=== PATIENT | female | born 1950 | race Caucasian/White ===

== ENCOUNTER 2017-02-26 11:41 | Inpatient (IN) | payer OTHER ==
[~2017-02-26] VITALS: Ht 175.3 cm; Wt 97.1 kg
[~2017-02-26 11:41] MED LIST: ACET300T PO; ALBUAER2 INH; ASPI81TA28 PO; BENZ100C84 PO; CALC600T57 PO; CDN15 PO; CYCL10TA6 PO; DESO0.0562 TOP; DLTCD/240 PO; IPRASOL4 INH; LDXS20 TOP; LEVO1TAB33 PO; LORA-741 PO; LVQ500 PO; MAGN400T6 PO; MULT-506 PO; NF34 TOP; OXGN; PANT40TA2 PO; POTA10TA32 PO; SPRIN/30 INH; SYMIN160 INH; TRIA37.5 PO; WARF-246 PO; WSTO TOP; ZLF/100 PO; ZOLP5TAB PO
[2017-02-26] MEDS ORDERED: CEFEPIME IV 2,000 MG in DEXTROSE 5% 100ML 100 ML IV STA (12:33)
[2017-02-26] MEDS ORDERED: ALBUT/IPRATROP 3MG/0.5MG NEB 3 ML VIAL INH STA (12:33)
[2017-02-26] MEDS ORDERED: SODIUM CHLORIDE 0.9% 1000ML 1,000 ML IV ONE (12:33)
[2017-02-26] MEDS ORDERED: METHYLPREDNISOLONE 125 MG VIAL IV STA (12:38)
--- NOTE | 2017-02-26 12:41 | EMERGENCY ROOM VISIT NOTE ---
History Report prepared by Veronika: Ben Matthew Under the Supervision of: Dr. Rishi Zendejas M.D. First contact with patient: 12:27 Chief Complaint: REFERRED BY DOCTOR Stated Complaint: SICK X 1 WEEK History of Present Illness The patient is a 66 year old female who presents to the Emergency Room with complaints of persistent shortness of breath that began 8 days ago. She has a past history of COPD and states that her respiratory symptoms feel similar to her symptoms associated with her past episodes of COPD. At the patient's baseline, she is on 3L of oxygen at all times. Her symptoms worsen with movement or exertion. Along with her shortness of breath, she is also having chest heaviness and a non-productive cough. She has a nebulizer at home and has been using it intermittently. She denies any nausea, vomiting, abdominal pain, diarrhea, or abnormal urinary symptoms. She notes that she has had intermittent fevers. Six days ago, she went to [facility] and was placed onto Prednisone and Levaquin. Her symptoms persisted, so she went back to the clinic two days ago and was given Rocephin IM and Solu-Medrol IM. Yesterday, she received a chest x-ray that was negative. However, her symptoms have persisted into today, so she was referred to the ER for possible hospitalization. She has three days of Prednisone and Levaquin left. She has been trying her best to stay hydrated. She denies any history of previous heart attacks. She is on Eliquis for her atrial fibrillation. Source of History: patient Onset: 8 days ago Position: other (Respiratory System) Symptom Intensity: moderate Quality: other (Shortness of breath) Timing: other (Persistent) Modifying Factors (Worsening): exertion, movement Associated Symptoms: + fevers (Intermittent), + cough (non-productive), No chest pain, No nausea, No vomiting, No abdominal pain, No diarrhea, No urinary symptoms Note: She is experiencing chest heaviness. Review of Systems See HPI for pertinent positives & negatives. A total of 10 systems reviewed and were otherwise negative. Past Medical & Surgical Medical Problems: (1) Atrial fibrillation (2) Bronchitis (3) Chronic respiratory failure (4) COPD (chronic obstructive pulmonary disease) (5) Depression (6) Hx multifocal atrial tachycardia (7) Hx spontaneous pneumothorax (8) Paroxysmal atrial fibrillation (9) PFO (patent foramen ovale) (10) Pneumonia (11) Pneumothorax (12) Psoriasis (13) Raynauds syndrome Surgical Problems: (1) H/O foot surgery (2) History of hysterectomy (3) S/P T&A (status post tonsillectomy and adenoidectomy) Family History FH: emphysema FATHER MOTHER FH: heart disease MOTHER GRANDFATHER GRANDMOTHER Hypertension Kidney disease Kidney stones Social History Smoking Status: Former Smoker Alcohol Use: occasionally Drug Use: none Housing Status: lives alone Occupation Status: unemployed Current/Historical Medications Scheduled Apixaban (Eliquis), 5 MG PO BID Calcium/Vitamin D (Os-Carlos 500 Plus D), 1 TAB PO BID Digoxin (Digoxin), 0.125 MG PO DAILY Diltiazem Hcl Ext Rel (Tiazac), 240 MG PO DAILY Fluticasone Prop/Salmeterol (Advair Diskus 250/50 60 Dose), 1 PUFF INH BID Home O2 Therapy (Oxygen), 3 LITERS NA CONTINOUS Lorazepam (Ativan), 0.5 MG PO BID Magnesium Oxide (Mag-Ox), 400 MG PO BID Multivitamin (Multivitamin), 1 TAB PO DAILY Pantoprazole (Pantoprazole Sodium), 40 MG PO DAILY Potassium Chloride (Potassium Chloride Er), 30 MEQ PO DAILY Potassium Chloride (Potassium Chloride Er), 20 MEQ PO HS Sertraline HCl (Sertraline HCl), 100 MG PO DAILY Tiotropium [place] (Spiriva Handihaler), 1 CAP INH DAILY Triamterene/Hctz (Maxzide 75MG/50MG), 0.5 TAB PO DAILY Scheduled PRN Albuterol Hfa (Ventolin Hfa), Unknown Dose INH Q6H PRN for SOB/Wheezing Benzonatate (Tessalon Perles), 100 MG PO DAILY PRN for Cough Ipratropium-Albuterol (Duoneb), 1 TREATMENT INH Q4H PRN for Shortness of Breath Allergies Coded Allergies: Penicillins (Verified Allergy, Severe, SWELLING OF TONGUE AND THROAT, ) Physical Exam Vital Signs Date Time Temp Pulse Resp B/P (MAP) Pulse Ox O2 Delivery O2 Flow Rate FiO2 02/26/17 15:00 63 20 143/73 98 Nasal Cannula 3.0 02/26/17 13:42 65 20 143/70 99 Nasal Cannula 3.0 02/26/17 13:00 59 20 149/74 100 Nasal Cannula 3.0 02/26/17 12:40 99 Nasal Cannula 3.0 02/26/17 12:27 58 02/26/17 11:49 37.1 64 18 136/79 93 Nasal Cannula 3.0 Physical Exam GENERAL: Patient is in no acute distress. HEENT: No acute trauma, normocephalic atraumatic, mucous membranes dry, no nasal congestion, no scleral icterus. NECK: No stridor, no adenopathy, no meningismus, trachea is midline. LUNGS: Markedly diminished breath sounds. Breath sounds are equal. No wheezing or rhonchi. HEART: Without murmurs gallops or rubs, regular rate and rhythm. ABDOMEN: Soft, nontender, bowel sounds positive, no hernias, no peritonitis. EXTREMITIES: No cyanosis or edema, full range of motion of all the joints without pain or difficulty, no signs for acute trauma. NEUROLOGIC: Oriented x 3, no acute motor or sensory deficits, no focal weakness. SKIN: No rash, no jaundice, no diaphoresis. Medical Decision & Procedures ER Provider Diagnostic Interpretation: Radiology results as stated below per my review and radiologist interpretation: (CHEST) THORAX WITHOUT CLINICAL HISTORY: 66 years-old Female presenting with possible pneumonia, sick for over 1 week, neg chest film. TECHNIQUE: Multidetector CT imaging of the chest was performed without the use of intravenous contrast. IV contrast: None. A dose lowering technique was used consistent with the principles of ALARA (as low as reasonably achievable). COMPARISON: 04/15/2014. CT DOSE (mGy.cm): The estimated cumulative dose is 319.57 mGy.cm. FINDINGS: Grader Tender topogram: Unremarkable. On soft tissue windows, normal thyroid and thoracic inlet. No axillary, supraclavicular, or mediastinal lymphadenopathy. Evaluation of the katt limited without intravenous contrast. Atherosclerosis of the aorta. Normal heart size. No pericardial or pleural effusion. Borderline hepatic steatosis. On lung windows, solid 6 mm pulmonary nodule in the right middle lobe (series 4 image 168) disease, previously 4 mm. Additional solid 7 mm pulmonary nodule in the right middle lobe (series 4 image 175), previously 5 mm. Solid 5 mm pulmonary nodule in the right lower lobe (series 4 image 183), previously 4 mm. Peripheral punctate nodule in the right lower lobe (series 4 image 203), unchanged. Minimal dependent changes at the lung bases likely atelectasis or scarring. Mild apical predominant emphysema. Reticulation at the lung apices likely scarring, unchanged from prior. Groundglass nodule in the lingula measures 13 mm (series 4 image 145), previously ill-defined but measuring proximally 6 mm. Additional more subtle groundglass nodule in the periphery of the lingula measuring 5 mm (series 4 image 156), not seen previously. Airways patent. On bone windows, degenerative changes of the spine. Exaggerated thoracic kyphosis without a focal compression deformity. Mild osteopenia. IMPRESSION: 1. Interval increase in size of several solid and subsolid pulmonary nodules bilaterally, the largest on the right a solid nodule measuring 7 mm and the largest on the left a subsolid nodule measuring 13 mm follow-up per Dany Society 2017 recommendations below. 2. No convincing evidence of an infectious etiology. Please refer to below summary of Fleischner Society 2017 recommendations for follow-up of incidental CT nodules (H Frederick et al. Guidelines for management of incidental pulmonary nodules detected on CT images: From the Fleischner Society 2017. Radiology 2017; 284: 228-243.) SOLID NODULES Single nodule; size < 6 mm * Low risk patients: No routine follow-up * High risk patients: Optional CT at 12 months Single nodule; size 6-8 mm * Low risk patients: CT at 6-12 months, then consider CT at 18-24 months * High risk patients: CT at 6-12 months, then at 18-24 months Single nodule; size > 8 mm * Either low or high risk patients: Considered CT at 3 months, PET/CT, or tissue sampling Multiple nodules; size < 6 mm * Low risk patients: No routine follow up * High risk patients: Optional CT at 12 months Multiple nodules; size 6-8 mm * Low risk patients: CT at 3-6 months, then consider CT at 18-24 months * High risk patients: CT at 3-6 months, then at 18-24 months Multiple nodules; size > 8 mm * Low risk patients: CT at 3-6 months, then consider at 18-24 months * High risk patients: CT at 3-6 months, then at 18-24 months Note: These guidelines apply to incidental nodules. These guidelines do not apply to patients younger than 35 years, immunocompromised patients, or patients with cancer. * Low risk patients: Minimal or absent history of smoking and/or other known risk factors * High risk patients: History of smoking, exposure to other carcinogens, emphysema, fibrosis, upper lobe location, family history of lung cancer, etc. * If a nodule up to 8 mm is partly solid or is ground glass, further follow-up is required after 24 months to exclude possible slow growing adenocarcinoma. SUBSOLID NODULES Single ground-glass nodule * Nodule size < 6 mm: No routine follow-up * Nodule size > or = 6 mm: CT at 6-12 months to confirm persistence, then CT every 2 years until 5 years Single part-solid nodule * Nodule size < 6 mm: No routine follow-up * Nodules size > or = 6 mm: CT at 3-6 months to confirm persistence. If unchanged and solid component remains < 6 mm, annual CT should be performed for 5 years Multiple nodules * Nodule size < 6 mm: CT at 3-6 months. If stable, consider CT at 2 and 4 years. * Nodules size > or = 6 mm: CT at 3-6 months. Subsequent management based on the most suspicious nodule(s) Electronically signed by: Denzel Weller M.D. 02/26/2017 2:13 PM Dictated Date/Time: 02/26/2017 2:01 PM Laboratory Results 02/26/17 12:15 Red Blood Count 5.12, Mean Corpuscular Volume 89.5, Mean Corpuscular Hemoglobin 27.7, Mean Corpuscular Hemoglobin Concent 31.0, Mean Platelet Volume 10.8, Neutrophils (%) (Auto) 87.8, Lymphocytes (%) (Auto) 4.3, Monocytes (%) (Auto) 7.5, Eosinophils (%) (Auto) 0.1, Basophils (%) (Auto) 0.0, Neutrophils # (Auto) 8.81, Lymphocytes # (Auto) 0.43, Monocytes # (Auto) 0.75, Eosinophils # (Auto) 0.01, Basophils # (Auto) 0.00 02/26/17 12:15 Test 02/26/17 12:15 02/26/17 13:18 02/26/17 13:30 02/26/17 14:58 White Blood Count 10.03 K/uL (4.8-10.8) Red Blood Count 5.12 M/uL (4.2-5.4) Hemoglobin 14.2 g/dL (12.0-16.0) Hematocrit 45.8 % (37-47) Mean Corpuscular Volume 89.5 fL (80-100) Mean Corpuscular Hemoglobin 27.7 pg (25-34) Mean Corpuscular Hemoglobin Concent 31.0 g/dl (32-36) Platelet Count 218 K/uL (130-400) Mean Platelet Volume 10.8 fL (7.4-10.4) Neutrophils (%) (Auto) 87.8 % Lymphocytes (%) (Auto) 4.3 % Monocytes (%) (Auto) 7.5 % Eosinophils (%) (Auto) 0.1 % Basophils (%) (Auto) 0.0 % Neutrophils # (Auto) 8.81 K/uL (1.4-6.5) Lymphocytes # (Auto) 0.43 K/uL (1.2-3.4) Monocytes # (Auto) 0.75 K/uL (0.11-0.59) Eosinophils # (Auto) 0.01 K/uL (0-0.5) Basophils # (Auto) 0.00 K/uL (0-0.2) RDW Standard Deviation 49.2 fL (36.4-46.3) RDW Coefficient of Variation 15.3 % (11.5-14.5) Immature Granulocyte % (Auto) 0.3 % Immature Granulocyte # (Auto) 0.03 K/uL (0.00-0.02) Prothrombin Time 12.0 SECONDS (9.0-12.0) Prothromb Time International Ratio 1.1 (0.9-1.1) Activated Partial Thromboplast Time 26.9 SECONDS (21.0-31.0) Partial Thromboplastin Ratio 1.0 Anion Gap 5.0 mmol/L (3-11) Est Creatinine Clear Calc Drug Dose 61.5 ml/min Estimated GFR () 58.9 Estimated GFR (Non- 50.8 BUN/Creatinine Ratio 17.9 (10-20) Calcium Level 8.9 mg/dl (8.5-10.1) Magnesium Level 2.2 mg/dl (1.8-2.4) Total Bilirubin 0.4 mg/dl (0.2-1) Aspartate Amino Transf (AST/SGOT) 9 U/L (15-37) Alanine Aminotransferase (ALT/SGPT) 19 U/L (12-78) Alkaline Phosphatase 119 U/L (45-117) Total Protein 7.3 gm/dl (6.4-8.2) Albumin 4.0 gm/dl (3.4-5.0) Globulin 3.3 gm/dl (2.5-4.0) Albumin/Globulin Ratio 1.2 (0.9-2) Troponin I < 0.015 ng/ml (0-0.045) Bedside Lactic Acid Venous 1.16 mmol/L (0.90-1.70) Influenza Type A (RT-PCR) Neg for Influ A (NEG) Influenza Type B (RT-PCR) Neg for Influ B (NEG) Test 02/26/17 15:35 02/26/17 15:50 Urine Color YELLOW Urine Appearance CLEAR (CLEAR) Urine pH 7.0 (4.5-7.5) Urine Specific Valentine 1.019 (1.000-1.030) Urine Protein NEG (NEG) Urine Glucose (UA) NEG (NEG) Urine Ketones NEG (NEG) Urine Occult Blood NEG (NEG) Urine Nitrite NEG (NEG) Urine Bilirubin NEG (NEG) Urine Urobilinogen NEG (NEG) Urine Leukocyte Esterase NEG (NEG) Urine WBC (Auto) 0 /hpf (0-5) Urine RBC (Auto) 0-4 /hpf (0-4) Urine Hyaline Casts (Auto) 0 /lpf (0-5) Urine Epithelial Cells (Auto) 10-20 /lpf (0-5) Urine Bacteria (Auto) NEG (NEG) Laboratory results reviewed by me. Medications Administered Medications (Trade) Dose Ordered Sig/Angela Route Start Time Stop Time Status Last Admin Dose Admin Sodium Chloride 1,000 ml @ 999 mls/hr Q1H1M ONCE IV 02/26/17 12:33 02/26/17 13:33 DC 02/26/17 12:48 999 MLS/HR Albuterol/ Ipratropium (Duoneb) 3 ml NOW STAT INH 02/26/17 12:33 02/26/17 12:37 DC 02/26/17 12:48 3 ML Methylprednisolone Sodium Succinate (Solu-Medrol IV) 80 mg NOW STAT IV 02/26/17 12:38 02/26/17 12:39 DC 02/26/17 12:48 80 MG Aztreonam 2000 mg/ Dextrose 110 ml @ 110 mls/hr TODAY@1300 IV 02/26/17 13:00 02/26/17 16:00 02/26/17 14:38 110 MLS/HR ECG Indication: SOB/dyspnea Rate (beats per minute): 59 Rhythm: sinus bradycardia Findings: no acute ischemic change, no ectopy ED Course 1227: The patient was evaluated in room B12B. A complete history and physical exam was performed. 1233: Ordered DuoNeb 3 ml INH, Sodium Chloride 1000 ml @ 999 mls/hr IV 1238: Ordered Solu-Medrol IV 80 mg IV 1300: Ordered Aztreonam 2000 mg/Dextrose 110 ml @ 110 mls/hr IV 1428: Upon reexamination the patient is resting. I discussed results and treatment plan with the patient. She verbalizes agreement and understanding. [facility] discussed the patient's results and findings. The patient will be evaluated by her for further management. Medical Decision Differential diagnosis includes but is not limited to bronchitis, pneumonia, exacerbation of COPD, sepsis, UTI, electrolyte abnormality, and IL. There is no leukocytosis or concerning anemia. No significant electrolyte abnormality, kidney failure, hepatitis. Lactic acid level is not elevated making severe sepsis less likely. EKG shows a sinus bradycardia, no acute ischemia. Cardiac enzyme testing 1 is not consistent with acute cardiac injury. Blood cultures are pending. Urinalysis does not show infection. Chest CT does not show any evidence for a focal pneumonia, there was no pneumothorax or CHF. The patient presents with over a week of symptoms. She has underlying COPD. She is failing outpatient treatment and I do think a hospital stay is warranted. She very likely has an acute bronchitis with an exacerbation of COPD. Patient given IV Solu-Medrol, IV aztreonam, a DuoNeb. I spoke to case management, I discussed my findings with the patient. The on- call hospitalist was consulted. Medication Reconcilliation Current Medication List: was personally reviewed by me Blood Pressure Screening Patient's blood pressure: Elevated blood pressure Blood pressure disposition: Elevated BP felt to be situational Consults Time Called: 1429 Consulting Physician: Anika MACEDO - [facility] Returned Call: [phone] Discussed the patient's case. The patient will be evaluated for further management. Impression Primary Impression: SOB (shortness of breath) Additional Impressions: Acute bronchitis COPD exacerbation Failure of outpatient treatment Scribe Attestation The scribe's documentation has been prepared under my direction and personally reviewed by me in its entirety. I confirm that the note above accurately reflects all work, treatment, procedures, and medical decision making performed by me. Departure Information Dispostion Being Evaluated By Hospitalist Referrals Aleyda Bhatti M.D. (PCP) Patient Instructions My [facility] Problem Qualifiers
[2017-02-26 12:45] LABS: COMPLETE YES; EOS % 0.1 %; HEMATOCRIT 45.8 % (37-47); IG% 0.3 %; LYMPH % 4.3 %; LYMPH ABS # 0.43 K/uL (1.2-3.4); MEAN CELL VOLUME 89.5 fL (80-100); MEAN CORPUSCULAR HEMOGLOBIN 27.7 pg (25-34); MEAN PLATELET VOLUME 10.8 fL (7.4-10.4); MONO % 7.5 %; NEUT % 87.8 %; PLATELET COUNT 218 K/uL (130-400); RED BLOOD COUNT 5.12 M/uL (4.2-5.4); WHITE BLOOD COUNT 10.03 K/uL (4.8-10.8)
[2017-02-26 12:56] LABS: BUN/CREATININE RATIO 17.9 (10-20); CALCIUM 8.9 mg/dl (8.5-10.1); CREATININE 1.12 mg/dl (0.60-1.20); MAGNESIUM 2.2 mg/dl (1.8-2.4); POTASSIUM 3.7 mmol/L (3.5-5.1)
[2017-02-26 12:59] LABS: ALB/GLOB RATIO 1.2 (0.9-2); INR 1.1 (0.9-1.1)
[2017-02-26] MEDS ORDERED: AZTREONAM 2000 MG in DEXTROSE 5% 100 ML IV SCH (13:00)
[2017-02-26] MEDS ORDERED: APIX1TAB3 PO (13:48)
[2017-02-26] MEDS ORDERED: ADVIN25/60 INH (13:48)
[2017-02-26] MEDS ORDERED: LNX125 PO (13:48)
[2017-02-26] MEDS ORDERED: DILT-115 PO (13:48)
[2017-02-26] MEDS ORDERED: TRIA75TA53 PO (13:48)
--- NOTE | 2017-02-26 14:15 | DIAGNOSTIC IMAGING REPORT ---
(CHEST) THORAX WITHOUT CLINICAL HISTORY: 66 years-old Female presenting with possible pneumonia, sick for over 1 week, neg chest film. TECHNIQUE: Multidetector CT imaging of the chest was performed without the use of intravenous contrast. IV contrast: None. A dose lowering technique was used consistent with the principles of ALARA (as low as reasonably achievable). COMPARISON: 04/15/2014. CT DOSE (mGy.cm): The estimated cumulative dose is 319.57 mGy.cm. FINDINGS: Millstone Cleaner topogram: Unremarkable. On soft tissue windows, normal thyroid and thoracic inlet. No axillary, supraclavicular, or mediastinal lymphadenopathy. Evaluation of the katt limited without intravenous contrast. Atherosclerosis of the aorta. Normal heart size. No pericardial or pleural effusion. Borderline hepatic steatosis. On lung windows, solid 6 mm pulmonary nodule in the right middle lobe (series 4 image 168) disease, previously 4 mm. Additional solid 7 mm pulmonary nodule in the right middle lobe (series 4 image 175), previously 5 mm. Solid 5 mm pulmonary nodule in the right lower lobe (series 4 image 183), previously 4 mm. Peripheral punctate nodule in the right lower lobe (series 4 image 203), unchanged. Minimal dependent changes at the lung bases likely atelectasis or scarring. Mild apical predominant emphysema. Reticulation at the lung apices likely scarring, unchanged from prior. Groundglass nodule in the lingula measures 13 mm (series 4 image 145), previously ill-defined but measuring proximally 6 mm. Additional more subtle groundglass nodule in the periphery of the lingula measuring 5 mm (series 4 image 156), not seen previously. Airways patent. On bone windows, degenerative changes of the spine. Exaggerated thoracic kyphosis without a focal compression deformity. Mild osteopenia. IMPRESSION: 1. Interval increase in size of several solid and subsolid pulmonary nodules bilaterally, the largest on the right a solid nodule measuring 7 mm and the largest on the left a subsolid nodule measuring 13 mm follow-up per Dany Society 2017 recommendations below. 2. No convincing evidence of an infectious etiology. Please refer to below summary of Fleischner Society 2017 recommendations for follow-up of incidental CT nodules (Sunshine Mack et al. Guidelines for management of incidental pulmonary nodules detected on CT images: From the Fleischner Society 2017. Radiology 2017; 284: 228-243.) SOLID NODULES Single nodule; size < 6 mm * Low risk patients: No routine follow-up * High risk patients: Optional CT at 12 months Single nodule; size 6-8 mm * Low risk patients: CT at 6-12 months, then consider CT at 18-24 months * High risk patients: CT at 6-12 months, then at 18-24 months Single nodule; size > 8 mm * Either low or high risk patients: Considered CT at 3 months, PET/CT, or tissue sampling Multiple nodules; size < 6 mm * Low risk patients: No routine follow up * High risk patients: Optional CT at 12 months Multiple nodules; size 6-8 mm * Low risk patients: CT at 3-6 months, then consider CT at 18-24 months * High risk patients: CT at 3-6 months, then at 18-24 months Multiple nodules; size > 8 mm * Low risk patients: CT at 3-6 months, then consider at 18-24 months * High risk patients: CT at 3-6 months, then at 18-24 months Note: These guidelines apply to incidental nodules. These guidelines do not apply to patients younger than 35 years, immunocompromised patients, or patients with cancer. * Low risk patients: Minimal or absent history of smoking and/or other known risk factors * High risk patients: History of smoking, exposure to other carcinogens, emphysema, fibrosis, upper lobe location, family history of lung cancer, etc. * If a nodule up to 8 mm is partly solid or is ground glass, further follow-up is required after 24 months to exclude possible slow growing adenocarcinoma. SUBSOLID NODULES Single ground-glass nodule * Nodule size < 6 mm: No routine follow-up * Nodule size > or = 6 mm: CT at 6-12 months to confirm persistence, then CT every 2 years until 5 years Single part-solid nodule * Nodule size < 6 mm: No routine follow-up * Nodules size > or = 6 mm: CT at 3-6 months to confirm persistence. If unchanged and solid component remains < 6 mm, annual CT should be performed for 5 years Multiple nodules * Nodule size < 6 mm: CT at 3-6 months. If stable, consider CT at 2 and 4 years. * Nodules size > or = 6 mm: CT at 3-6 months. Subsequent management based on the most suspicious nodule(s) Electronically signed by: Denzel Weller M.D. 02/26/2017 2:13 PM Dictated Date/Time: 02/26/2017 2:01 PM
[2017-02-26] MEDS ORDERED: ONDANSETRON INJ 2 MG/ML 2 ML VIAL IV PRN (15:30)
[2017-02-26 15:45] LABS: URINE APPEARANCE CLEAR (CLEAR); URINE BILIRUBIN NEG (NEG); URINE COLOR YELLOW; URINE NITRITE NEG (NEG); URINE SPECIFIC GRAVITY 1.019 (1.000-1.030); UROBILINOGEN NEG (NEG); ZZUR CULT IF INDIC CLEAN CATCH NO
[2017-02-26] MEDS ORDERED: POTA1CAP2 PO ×2 (15:46)
[2017-02-26] MEDS ORDERED: CALC500C70 PO (15:46)
[2017-02-26] MEDS ORDERED: MULT-506 PO (15:46)
[2017-02-26] MEDS ORDERED: IPRASOL4 INH (15:46)
[2017-02-26] MEDS ORDERED: VNTHFA/IN INH (15:46)
[2017-02-26 15:47] LABS: MANUAL MICROSCOPIC REQUIRED? NO; REVIEW REQ? NO
[2017-02-26 15:50] LABS: INFLUENZA A PCR Neg for Influ A (NEG); INFLUENZA B PCR Neg for Influ B (NEG)
[2017-02-26] MEDS ORDERED: AZITHROMYCIN 250 MG TAB PO STA (16:14)
--- NOTE | 2017-02-26 17:08 | History and Physical ---
History & Physical Date & Time of Service: Feb 26, 2017 ~ 15:00 Chief Complaint: Shortness of Breath Primary Care Physician: Aleyda Bhatti M.D. History of Present Illness 66 year old female who was referred to the ED by her PCP for shortness of breath. Patient was seen in the clinic on 02/20 for shortness of breath and cough. She was diagnosed with a COPD exacerbation. She was given Levaquin and prednisone taper. Patient was seen again in the clinic on 02/24 for continued symptoms and was given IM solumedrol and Rocephin. Symptoms have persisted. She was seen again in the clinic today and was referred to the ER for further evaluation. Patient chronically wears 3L of oxygen. She has not been hypoxic. She reports her chest feels tight and that it is hard to get a deep breath in. She has a chronic dry non productive cough. She has been running low grade fevers of around 100. She reports a poor appetite and generalized weakness and fatigue. She denies lightheadedness, dizziness, diaphoresis, or syncope. No abdominal pain, nausea, vomiting, or diarrhea. She denies urinary symptoms. In the ED, patient had a CT chest that was negative for acute findings. She is saturating well on her chronic 3L. She as given IV solumedrol, neb, IV aztreonam , and IVF. Past Medical/Surgical History Medical Problems: (1) Chronic respiratory failure Status: Chronic (2) COPD (chronic obstructive pulmonary disease) Permanent Comment: very severe Status: Chronic (3) Depression Status: Chronic (4) Hx multifocal atrial tachycardia Status: Chronic (5) Hx spontaneous pneumothorax Status: Chronic (6) Paroxysmal atrial fibrillation Status: Chronic (7) PFO (patent foramen ovale) Permanent Comment: with embolism to L hand Status: Chronic (8) Psoriasis Status: Chronic (9) Raynauds syndrome Status: Chronic Surgical Problems: (1) H/O foot surgery Status: Chronic (2) History of hysterectomy Status: Chronic (3) S/P T&A (status post tonsillectomy and adenoidectomy) Status: Chronic Family History FH: emphysema FATHER MOTHER FH: heart disease MOTHER GRANDFATHER GRANDMOTHER Social History Smoking Status: Former Smoker Alcohol Use: 1 drink/night Housing status: lives alone Occupational Status: unemployed Immunizations History of Influenza Vaccine: Yes Influenza Vaccine Date: Dec 09, 2016 History of Tetanus Vaccine?: Yes Tetanus Immunization Date: Dec 02, 2007 History of Pneumococcal: Yes Pneumococcal Date: Jan 30, 2017 Multi-Drug Resistant Organisms History of MDRO: No Allergies Coded Allergies: Penicillins (Verified Allergy, Severe, SWELLING OF TONGUE AND THROAT, ) Home Medications Scheduled Apixaban (Eliquis), 5 MG PO BID Calcium/Vitamin D (Os-Carlos 500 Plus D), 1 TAB PO BID Digoxin (Digoxin), 0.125 MG PO DAILY Diltiazem Hcl Ext Rel (Tiazac), 240 MG PO DAILY Fluticasone Prop/Salmeterol (Advair Diskus 250/50 60 Dose), 1 PUFF INH BID Home O2 Therapy (Oxygen), 3 LITERS NA CONTINOUS Lorazepam (Ativan), 0.5 MG PO BID Magnesium Oxide (Mag-Ox), 400 MG PO BID Multivitamin (Multivitamin), 1 TAB PO DAILY Pantoprazole (Pantoprazole Sodium), 40 MG PO DAILY Potassium Chloride (Potassium Chloride Er), 30 MEQ PO DAILY Potassium Chloride (Potassium Chloride Er), 20 MEQ PO HS Sertraline HCl (Sertraline HCl), 100 MG PO DAILY Tiotropium [place] (Spiriva Handihaler), 1 CAP INH DAILY Triamterene/Hctz (Maxzide 75MG/50MG), 0.5 TAB PO DAILY Scheduled PRN Albuterol Hfa (Ventolin Hfa), Unknown Dose INH Q6H PRN for SOB/Wheezing Benzonatate (Tessalon Perles), 100 MG PO DAILY PRN for Cough Ipratropium-Albuterol (Duoneb), 1 TREATMENT INH Q4H PRN for Shortness of Breath Review of Systems ROS per HPI, all other systems reviewed and negative Physical Exam Vital Signs Date Time Temp Pulse Resp B/P (MAP) Pulse Ox O2 Delivery O2 Flow Rate FiO2 02/26/17 15:32 75 20 123/77 97 Nasal Cannula 3.0 02/26/17 15:00 63 20 143/73 98 Nasal Cannula 3.0 02/26/17 13:42 65 20 143/70 99 Nasal Cannula 3.0 02/26/17 13:00 59 20 149/74 100 Nasal Cannula 3.0 02/26/17 12:40 99 Nasal Cannula 3.0 02/26/17 12:27 58 02/26/17 11:49 37.1 64 18 136/79 93 Nasal Cannula 3.0 General Appearance: WD/WN, no apparent distress Head: normocephalic, atraumatic Eyes: normal inspection, EOMI, sclerae normal ENT: hearing grossly normal, + pertinent finding (mucous membranes moist) Neck: supple, no JVD, trachea midline Respiratory/Chest: no respiratory distress, + decreased breath sounds (poor air entry noted throughout all lung schultz) Cardiovascular: regular rate, rhythm, no edema, normal peripheral pulses Abdomen/GI: normal bowel sounds, non tender, soft, no organomegaly Extremities/Musculoskelatal: normal inspection, no calf tenderness, normal capillary refill Neurologic/Psych: no motor/sensory deficits, alert, normal mood/affect, oriented x 3 Skin: normal color, warm/dry Diagnostics Laboratory Results Results Past 24 Hours Test 02/26/17 12:15 02/26/17 13:18 02/26/17 13:30 02/26/17 14:58 Range/Units White Blood Count 10.03 4.8-10.8 K/uL Red Blood Count 5.12 4.2-5.4 M/uL Hemoglobin 14.2 12.0-16.0 g/dL Hematocrit 45.8 37-47 % Mean Corpuscular Volume 89.5 80-100 fL Mean Corpuscular Hemoglobin 27.7 25-34 pg Mean Corpuscular Hemoglobin Concent 31.0 32-36 g/dl Platelet Count 218 130-400 K/uL Mean Platelet Volume 10.8 7.4-10.4 fL Neutrophils (%) (Auto) 87.8 % Lymphocytes (%) (Auto) 4.3 % Monocytes (%) (Auto) 7.5 % Eosinophils (%) (Auto) 0.1 % Basophils (%) (Auto) 0.0 % Neutrophils # (Auto) 8.81 1.4-6.5 K/uL Lymphocytes # (Auto) 0.43 1.2-3.4 K/uL Monocytes # (Auto) 0.75 0.11-0.59 K/uL Eosinophils # (Auto) 0.01 0-0.5 K/uL Basophils # (Auto) 0.00 0-0.2 K/uL RDW Standard Deviation 49.2 36.4-46.3 fL RDW Coefficient of Variation 15.3 11.5-14.5 % Immature Granulocyte % (Auto) 0.3 % Immature Granulocyte # (Auto) 0.03 0.00-0.02 K/uL Prothrombin Time 12.0 9.0-12.0 SECONDS Prothromb Time International Ratio 1.1 0.9-1.1 Activated Partial Thromboplast Time 26.9 21.0-31.0 SECONDS Partial Thromboplastin Ratio 1.0 Sodium Level 139 136-145 mmol/L Potassium Level 3.7 3.5-5.1 mmol/L Chloride Level 98 98-107 mmol/L Carbon Dioxide Level 36 21-32 mmol/L Anion Gap 5.0 3-11 mmol/L Blood Urea Nitrogen 20 7-18 mg/dl Creatinine 1.12 0.60-1.20 mg/dl Est Creatinine Clear Calc Drug Dose 61.5 ml/min Estimated GFR () 58.9 Estimated GFR (Non- 50.8 BUN/Creatinine Ratio 17.9 10-20 Random Glucose 100 70-99 mg/dl Calcium Level 8.9 8.5-10.1 mg/dl Magnesium Level 2.2 1.8-2.4 mg/dl Total Bilirubin 0.4 0.2-1 mg/dl Aspartate Amino Transf (AST/SGOT) 9 15-37 U/L Alanine Aminotransferase (ALT/SGPT) 19 12-78 U/L Alkaline Phosphatase 119 45-117 U/L Total Protein 7.3 6.4-8.2 gm/dl Albumin 4.0 3.4-5.0 gm/dl Globulin 3.3 2.5-4.0 gm/dl Albumin/Globulin Ratio 1.2 0.9-2 Troponin I < 0.015 0-0.045 ng/ml Bedside Lactic Acid Venous 1.16 0.90-1.70 mmol/L Influenza Type A (RT-PCR) Neg for Influ A NEG Influenza Type B (RT-PCR) Neg for Influ B NEG Test 02/26/17 15:35 02/26/17 15:50 Range/Units Urine Color YELLOW Urine Appearance CLEAR CLEAR Urine pH 7.0 4.5-7.5 Urine Specific [place] 1.019 1.000-1.030 Urine Protein NEG NEG Urine Glucose (UA) NEG NEG Urine Ketones NEG NEG Urine Occult Blood NEG NEG Urine Nitrite NEG NEG Urine Bilirubin NEG NEG Urine Urobilinogen NEG NEG Urine Leukocyte Esterase NEG NEG Urine WBC (Auto) 0 0-5 /hpf Urine RBC (Auto) 0-4 0-4 /hpf Urine Hyaline Casts (Auto) 0 0-5 /lpf Urine Epithelial Cells (Auto) 10-20 0-5 /lpf Urine Bacteria (Auto) NEG NEG Lactic Acid Level 1.9 0.4-2.0 mmol/L Microbiology Results 02/26/17 Blood Culture, Received Pending 02/26/17 Blood Culture, Received Pending Diagnostic Radiology CT CHEST IMPRESSION: 1. Interval increase in size of several solid and subsolid pulmonary nodules bilaterally, the largest on the right a solid nodule measuring 7 mm and the largest on the left a subsolid nodule measuring 13 mm follow-up per [employer] 2017 recommendations below. 2. No convincing evidence of an infectious etiology. Impression Assessment and Plan COPD EXACERBATION - admit to med/surg - patient presenting with persistent shortness of breath x 1 week despite outpatient use of Levaquin and Prednisone and also 1 dose each of IM solumedrol and Rocephin - currently saturating well on chronic 3L of O2 - s/p aztreonam in the ED; will start Azithromycin to provide better atypical coverage - no signs of pneumonia on CT chest, no signs of sepsis - around the clock nebs, IV solumedrol, continue inhaled corticosteroid PAROXYSMAL ATRIAL FIBRILLATION - currently in NSR - rate controlled on diltiazem and digoxin, continue both - anticoagulated on Eliquis, will continue DEPRESSION - continue sertraline GERD - continue PPI PULMONARY NODULES - noted on CT chest - will need follow up CT for monitoring DVT PROPHYLAXIS - on Eliquis DISPO - In my clinical judgment this beneficiary meets acute admission criteria, established by [facility], that includes being hospitalized through two midnights. - PT/OT, case management consults ADDENDUM: I have seen and examined the patient and agree with the assessment and plan above. On exam she had no wheezing. She reported some coughing spells for which I am giving her Robitussin AC. She reports that her SOB got worse at home punctuated by some periods of coughing, but her concern was more the SOB. She was not requiring any more oxygen than her baseline 3L, however. She appears clinically euvolemic and not in heart failure. Cont Azithro, IV steroids and nebs overnight. May likely be able to de-escalate therapy soon if the wheezing does not return. Emanuel, DO VTE Prophylaxis VTE Risk Assessment Done? Y/N: Yes Risk Level: Moderate
[2017-02-26] MEDS ORDERED: SODIUM CHLORIDE 0.9% 1000ML 1,000 ML IV SCH (17:45)
[2017-02-26 18:19] VITALS: BP 160/77; PULSE 78; TEMP 36.7; O2SAT 95; Ht 175.3 cm; Wt 97.1 kg
[2017-02-26] MEDS: ALBUT/IPRATROP 3MG/0.5MG NEB 3 ML VIAL INH SCH (19:35)
[2017-02-26 19:36] VITALS: PULSE 68; O2SAT 97
[2017-02-26] MEDS: APIXABAN 2.5 MG TAB PO SCH (19:58)
[2017-02-26] MEDS: MAGNESIUM OXIDE 400 MG TAB PO SCH (19:58)
[2017-02-26] MEDS: POTASSIUM CHLORIDE 20 MEQ TABCR PO SCH (19:59)
[2017-02-26] MEDS: CALCIUM 600MG + VIT D 400 IU TAB PO SCH (19:59)
[2017-02-26] MEDS: FLUTICASONE/SALMETEROL 250/50 (ADVAIR) 14 PUFF/1 INHALER INH SCH (19:59)
[2017-02-26] MEDS: METHYLPREDNISOLONE IV 40 MG in SYRINGE 0 ML IV SCH (20:01)
[2017-02-26] MEDS: LORAZEPAM 0.5 MG TAB PO SCH (20:01)
[2017-02-26] MEDS: GUAIFENESIN/CODEINE 200MG/20MG 10ML UDC PO PRN (22:19)
[2017-02-26 23:48] VITALS: BP 126/68; PULSE 73; TEMP 36.8; O2SAT 95
[2017-02-27] VITALS (7 sets, daily range): BP systolic 131–164; BP diastolic 67–74; PULSE 68–79; TEMP 36.5–36.9; O2SAT 95–98
[2017-02-27] MEDS: ACETAMINOPHEN 325 MG TAB PO PRN ×2 (00:57→05:54)
[2017-02-27] MEDS: ALBUT/IPRATROP 3MG/0.5MG NEB 3 ML VIAL INH SCH ×4 (01:43→19:06)
[2017-02-27] MEDS: GUAIFENESIN/CODEINE 200MG/20MG 10ML UDC PO PRN (04:05)
[2017-02-27] MEDS: METHYLPREDNISOLONE IV 40 MG in SYRINGE 0 ML IV SCH (04:05)
--- NOTE | 2017-02-27 06:41 | DIAGNOSTIC IMAGING REPORT ---
L SHOULDER MIN 2 VIEWS ROUTINE HISTORY: 66 years-old Female L shoulder pain acute left shoulder pain status post fall COMPARISON: CT chest 02/26/2017 TECHNIQUE: 2 views of the left shoulder FINDINGS: Mild glenohumeral and acromioclavicular degenerative changes without acute fracture or dislocation identified. No opaque foreign body. Imaged lung schultz appear clear IMPRESSION: Mild degenerative changes without acute fracture or dislocation. The above report was generated using voice recognition software. It may contain grammatical, syntax or spelling errors. Electronically signed by: Maximilian Vora M.D. 02/27/2017 6:40 AM Dictated Date/Time: 02/27/2017 6:38 AM
--- NOTE | 2017-02-27 06:59 | DIAGNOSTIC IMAGING REPORT ---
L HAND MIN 3 VIEWS ROUTINE CLINICAL HISTORY: LEFT THUMB PAIN pain COMPARISON: None. DISCUSSION: The bones and joint spaces appear intact. There is no evidence of fracture, dislocation or bony disease. Mild degenerative changes throughout. IMPRESSION: Mild degenerative changes throughout. No acute process. The above report was generated using voice recognition software. It may contain grammatical, syntax or spelling errors. Electronically signed by: Frankie Schuler M.D. 02/27/2017 6:58 AM Dictated Date/Time: 02/27/2017 6:56 AM
[2017-02-27 07:01] LABS: HEMATOCRIT 41.8 % (37-47); MEAN CORPUSCULAR HEMOGLOBIN 27.4 pg (25-34); MEAN CORPUSCULAR HGB CONC 31.1 g/dl (32-36); PLATELET COUNT 204 K/uL (130-400); RED BLOOD COUNT 4.75 M/uL (4.2-5.4); WHITE BLOOD COUNT 10.02 K/uL (4.8-10.8)
[2017-02-27 07:32] LABS: BUN/CREATININE RATIO 19.8 (10-20); CALCIUM 8.3 mg/dl (8.5-10.1); CREATININE 1.04 mg/dl (0.60-1.20); POTASSIUM 4.2 mmol/L (3.5-5.1)
[2017-02-27] MEDS: PANTOprazole SOD 40 MG TAB PO SCH (07:56)
[2017-02-27] MEDS: CALCIUM 600MG + VIT D 400 IU TAB PO SCH ×2 (07:56→21:03)
[2017-02-27] MEDS: FLUTICASONE/SALMETEROL 250/50 (ADVAIR) 14 PUFF/1 INHALER INH SCH ×2 (07:56→21:03)
[2017-02-27] MEDS: POTASSIUM CHLORIDE 10 MEQ TABCR PO SCH (07:56)
[2017-02-27] MEDS: LORAZEPAM 0.5 MG TAB PO SCH ×2 (07:56→21:03)
[2017-02-27] MEDS: MAGNESIUM OXIDE 400 MG TAB PO SCH ×2 (07:57→21:04)
[2017-02-27] MEDS: SERTRALINE HCL 100 MG TAB PO SCH (07:57)
[2017-02-27] MEDS: APIXABAN 2.5 MG TAB PO SCH ×2 (07:57→21:06)
[2017-02-27] MEDS: MULTIVITAMIN TAB PO SCH (07:57)
[2017-02-27] MEDS: DILTIAZEM HCL 120 MG EXT REL CAP PO SCH (07:57)
[2017-02-27] MEDS: TRIAMTERENE/HCTZ 37.5/25MG CAP PO SCH (07:58)
[2017-02-27] MEDS ORDERED: TRIAMTERENE/HCTZ 37.5/25MG CAP PO SCH (08:00)
[2017-02-27] MEDS: AZITHROMYCIN 250 MG TAB PO SCH (08:16)
--- NOTE | 2017-02-27 10:12 | Hospitalist Progress Note ---
Hospitalist Progress Note Date of Service Feb 27, 2017. (Anika Choi CRNP) Subjective Patient seen and examined. Feeling a little better this morning. Had a fall last night while walking back from the bathroom. Fell and hit her left shoulder and head. Denies loss of coconsciousness. Had a headache this morning that resolved with Tylenol. Breathing is slightly better No chest pain or palpitations. (Anika Choi CRNP) Objective Vital Signs Date Time Temp Pulse Resp B/P (MAP) Pulse Ox O2 Delivery O2 Flow Rate FiO2 02/27/17 09:25 Nasal Cannula 3.0 02/27/17 07:22 69 16 97 Nasal Cannula 2.0 02/27/17 07:17 36.5 68 20 164/67 (99) 96 Nasal Cannula 2.0 02/27/17 01:43 72 16 95 Nasal Cannula 2.0 02/27/17 00:00 Nasal Cannula 3.0 02/26/17 23:48 36.8 73 22 126/68 (87) 95 Nasal Cannula 2.0 02/26/17 19:36 68 16 97 Nasal Cannula 2.0 02/26/17 18:19 36.7 78 20 160/77 95 Nasal Cannula 3.0 02/26/17 16:45 70 20 141/55 97 Nasal Cannula 3.0 02/26/17 15:32 75 20 123/77 97 Nasal Cannula 3.0 02/26/17 15:00 63 20 143/73 98 Nasal Cannula 3.0 02/26/17 13:42 65 20 143/70 99 Nasal Cannula 3.0 02/26/17 13:00 59 20 149/74 100 Nasal Cannula 3.0 02/26/17 12:40 99 Nasal Cannula 3.0 02/26/17 12:27 58 02/26/17 11:49 37.1 64 18 136/79 93 Nasal Cannula 3.0 (Anika Choi CRNP) Physical Exam General Appearance: WD/WN, no apparent distress Respiratory/Chest: no respiratory distress, + decreased breath sounds ( slightly better air movement from yesterday ) Cardiovascular: regular rate, rhythm, no edema Abdomen: normal bowel sounds, non tender, soft, no organomegaly Neurologic/Psychiatric: alert, oriented x 3 Skin: + pertinent finding (bruising noted over left shoulder and left upper arm ) (Anika Choi CRNP) Laboratory Results Last 24 Hours Test 02/26/17 12:15 02/26/17 13:18 02/26/17 13:30 02/26/17 14:58 White Blood Count 10.03 K/uL Red Blood Count 5.12 M/uL Hemoglobin 14.2 g/dL Hematocrit 45.8 % Mean Corpuscular Volume 89.5 fL Mean Corpuscular Hemoglobin 27.7 pg Mean Corpuscular Hemoglobin Concent 31.0 g/dl Platelet Count 218 K/uL Mean Platelet Volume 10.8 fL Neutrophils (%) (Auto) 87.8 % Lymphocytes (%) (Auto) 4.3 % Monocytes (%) (Auto) 7.5 % Eosinophils (%) (Auto) 0.1 % Basophils (%) (Auto) 0.0 % Neutrophils # (Auto) 8.81 K/uL Lymphocytes # (Auto) 0.43 K/uL Monocytes # (Auto) 0.75 K/uL Eosinophils # (Auto) 0.01 K/uL Basophils # (Auto) 0.00 K/uL RDW Standard Deviation 49.2 fL RDW Coefficient of Variation 15.3 % Immature Granulocyte % (Auto) 0.3 % Immature Granulocyte # (Auto) 0.03 K/uL Prothrombin Time 12.0 SECONDS Prothromb Time International Ratio 1.1 Activated Partial Thromboplast Time 26.9 SECONDS Partial Thromboplastin Ratio 1.0 Sodium Level 139 mmol/L Potassium Level 3.7 mmol/L Chloride Level 98 mmol/L Carbon Dioxide Level 36 mmol/L Anion Gap 5.0 mmol/L Blood Urea Nitrogen 20 mg/dl Creatinine 1.12 mg/dl Est Creatinine Clear Calc Drug Dose 61.5 ml/min Estimated GFR () 58.9 Estimated GFR (Non- 50.8 BUN/Creatinine Ratio 17.9 Random Glucose 100 mg/dl Calcium Level 8.9 mg/dl Magnesium Level 2.2 mg/dl Total Bilirubin 0.4 mg/dl Aspartate Amino Transf (AST/SGOT) 9 U/L Alanine Aminotransferase (ALT/SGPT) 19 U/L Alkaline Phosphatase 119 U/L Total Protein 7.3 gm/dl Albumin 4.0 gm/dl Globulin 3.3 gm/dl Albumin/Globulin Ratio 1.2 Hepatitis C Antibody Screen NEG Troponin I < 0.015 ng/ml Bedside Lactic Acid Venous 1.16 mmol/L Influenza Type A (RT-PCR) Neg for Influ A Influenza Type B (RT-PCR) Neg for Influ B Test 02/26/17 15:35 02/26/17 15:50 02/27/17 06:38 Urine Color YELLOW Urine Appearance CLEAR Urine pH 7.0 Urine Specific [place] 1.019 Urine Protein NEG Urine Glucose (UA) NEG Urine Ketones NEG Urine Occult Blood NEG Urine Nitrite NEG Urine Bilirubin NEG Urine Urobilinogen NEG Urine Leukocyte Esterase NEG Urine WBC (Auto) 0 /hpf Urine RBC (Auto) 0-4 /hpf Urine Hyaline Casts (Auto) 0 /lpf Urine Epithelial Cells (Auto) 10-20 /lpf Urine Bacteria (Auto) NEG Lactic Acid Level 1.9 mmol/L White Blood Count 10.02 K/uL Red Blood Count 4.75 M/uL Hemoglobin 13.0 g/dL Hematocrit 41.8 % Mean Corpuscular Volume 88.0 fL Mean Corpuscular Hemoglobin 27.4 pg Mean Corpuscular Hemoglobin Concent 31.1 g/dl RDW Standard Deviation 47.2 fL RDW Coefficient of Variation 14.6 % Platelet Count 204 K/uL Mean Platelet Volume 11.0 fL Sodium Level 137 mmol/L Potassium Level 4.2 mmol/L Chloride Level 100 mmol/L Carbon Dioxide Level 32 mmol/L Anion Gap 5.0 mmol/L Blood Urea Nitrogen 21 mg/dl Creatinine 1.04 mg/dl Est Creatinine Clear Calc Drug Dose 65.1 ml/min Estimated GFR () 64.4 Estimated GFR (Non- 55.6 BUN/Creatinine Ratio 19.8 Random Glucose 145 mg/dl Calcium Level 8.3 mg/dl (Anika Choi ., BAR TENDER) Diagnostic Results LEFT SHOULDER XR IMPRESSION: Mild degenerative changes without acute fracture or dislocation. LEFT HAND XR IMPRESSION: Mild degenerative changes throughout. No acute process. (Anika Chio ., BAR TENDER) Assessment and Plan COPD EXACERBATION - hospital day 2 - patient presenting with persistent shortness of breath x 1 week despite outpatient use of Levaquin and Prednisone and also 1 dose each of IM solumedrol and Rocephin - currently saturating well on chronic 3L of O2 - s/p aztreonam in the ED; Azithromycin started to provide better atypical coverage (day 2) - no signs of pneumonia on CT chest, no signs of sepsis - decreased solumedrol today from 40mg q8h to 30mg q8h - around the clock nebs, continue inhaled corticosteroid FALL - seems to be mechanical - left shoulder and hand XR negative - check CT head - PT/OT PAROXYSMAL ATRIAL FIBRILLATION - heart auscultates regular on exam - rate controlled on diltiazem and digoxin, continue both - anticoagulated on Eliquis, will continue DEPRESSION - continue sertraline GERD - continue PPI PULMONARY NODULES - noted on CT chest - will need follow up CT for monitoring DVT PROPHYLAXIS - on Eliquis DISPO - pending - PT/OT, case management consults - likely home with home services at discharge (Anika Choi ., BAR TENDER) The patient was seen and examined Please see the detailed progress note done by Anika Choi Patient feels a little better today Less SOB Hemodynamically stable Labs and Imaging studies were reviewed Agree with the assessment and plan. DR Milly Carlton (Cipriano Carlton M.D.)
--- NOTE | 2017-02-27 10:16 | DIAGNOSTIC IMAGING REPORT ---
HEAD WITHOUT CONTRAST (CT) CLINICAL HISTORY: 66 years-old Female presenting with fall, head injury. TECHNIQUE: Multidetector CT imaging of the head was performed without the use of intravenous contrast. IV contrast: None. A dose lowering technique was used consistent with the principles of ALARA (as low as reasonably achievable). COMPARISON: None. CT DOSE (mGy.cm): The estimated cumulative dose is 1141.75 mGycm. FINDINGS: Shipping Packer topogram: Unremarkable. Ventricles and sulci normal in size. Brain parenchyma normal in appearance with preserved love-white differentiation. No mass effect or midline shift. No hemorrhage or acute territorial infarct. No extra-axial fluid collection. Paranasal sinuses and mastoid air cells clear. Calvarium intact. IMPRESSION: 1. No acute intracranial abnormality. Electronically signed by: Denzel Weller M.D. 02/27/2017 10:14 AM Dictated Date/Time: 02/27/2017 10:12 AM
[2017-02-27] MEDS: METHYLPREDNISOLONE IV 30 MG in SYRINGE 0 ML IV SCH ×2 (12:59→21:03)
[2017-02-27] MEDS: DIGOXIN 0.125 MG TAB PO SCH (15:38)
[2017-02-27] MEDS: POTASSIUM CHLORIDE 20 MEQ TABCR PO SCH (21:06)
[2017-02-28] VITALS (7 sets, daily range): BP systolic 131–152; BP diastolic 66–74; PULSE 69–97; TEMP 36.7–36.9; O2SAT 93–98
[2017-02-28] MEDS: ALBUT/IPRATROP 3MG/0.5MG NEB 3 ML VIAL INH SCH ×4 (01:38→19:15)
[2017-02-28] MEDS: METHYLPREDNISOLONE IV 30 MG in SYRINGE 0 ML IV SCH ×3 (04:19→23:06)
[2017-02-28] MEDS: FLUTICASONE/SALMETEROL 250/50 (ADVAIR) 14 PUFF/1 INHALER INH SCH ×2 (07:37→20:50)
[2017-02-28] MEDS: CALCIUM 600MG + VIT D 400 IU TAB PO SCH ×2 (07:37→20:51)
[2017-02-28] MEDS: MAGNESIUM OXIDE 400 MG TAB PO SCH ×2 (07:38→20:53)
[2017-02-28] MEDS: POTASSIUM CHLORIDE 10 MEQ TABCR PO SCH ×2 (07:38→20:52)
[2017-02-28] MEDS: SERTRALINE HCL 100 MG TAB PO SCH (07:38)
[2017-02-28] MEDS: DILTIAZEM HCL 120 MG EXT REL CAP PO SCH (07:38)
[2017-02-28] MEDS: MULTIVITAMIN TAB PO SCH (07:38)
[2017-02-28] MEDS: PANTOprazole SOD 40 MG TAB PO SCH (07:38)
[2017-02-28] MEDS: AZITHROMYCIN 250 MG TAB PO SCH (07:38)
[2017-02-28] MEDS: APIXABAN 2.5 MG TAB PO SCH ×2 (07:38→20:51)
[2017-02-28] MEDS: TRIAMTERENE/HCTZ 37.5/25MG CAP PO SCH (07:38)
[2017-02-28] MEDS: LORAZEPAM 0.5 MG TAB PO SCH ×2 (07:42→20:50)
--- NOTE | 2017-02-28 13:20 | Progress Note ---
Internal Med Progress Note Date of Service: Feb 28, 2017. Provider Documentation: SUBJECTIVE: The patient was seen and examined Clinically much better Sleeping now without any SOB OBJECTIVE: Vital Signs-as noted below Exam: General-No distress at rest Eyes-normal ENT-normal Neck-supple Lungs-Decreased breath sound bilaterally Heart-Regular Abdomen-Benign,no masses,bowel sound present Extremities-No edema Neuro-AAOx3 Lab data as noted below. ASSESSMENT & PLAN: COPD EXACERBATION - hospital day 2 - patient presenting with persistent shortness of breath x 1 week despite outpatient use of Levaquin and Prednisone and also 1 dose each of IM solumedrol and Rocephin - s/p aztreonam in the ED; Azithromycin started to provide better atypical coverage (day 3) - no signs of pneumonia on CT chest, no signs of sepsis - decreased solumedrol today from 40mg q8h to 30mg q8h - Round the clock nebs, continue inhaled corticosteroid -Clinically much better -likely to be discharged in a day or two FALL - seems to be mechanical - left shoulder and hand XR negative - check CT head-negative - PT/OT PAROXYSMAL ATRIAL FIBRILLATION - heart auscultates regular on exam - rate controlled on diltiazem and digoxin, continue both - anticoagulated on Eliquis, will continue DEPRESSION - continue sertraline -no acute issue GERD - continue PPI PULMONARY NODULES - noted on CT chest - will need follow up CT for monitoring DVT PROPHYLAXIS - on Eliquis DISPO - pending - PT/OT, case management consults - likely home with home services at discharge DISPOSITION Likely discharge in a day or two Vital Signs: Date Time Temp Pulse Resp B/P (MAP) Pulse Ox O2 Delivery O2 Flow Rate FiO2 02/28/17 08:00 Nasal Cannula 3.0 02/28/17 07:23 36.7 77 20 152/74 (100) 96 Room Air 02/28/17 07:15 72 16 98 Nasal Cannula 3.0 02/28/17 01:40 74 18 96 Nasal Cannula 3.0 02/28/17 00:00 Nasal Cannula 3.0 02/27/17 23:40 36.7 79 20 131/74 (93) 98 2.0 02/27/17 20:00 Nasal Cannula 3.0 02/27/17 19:08 69 18 98 Nasal Cannula 3.0 02/27/17 16:00 Nasal Cannula 3.0 02/27/17 15:38 88 02/27/17 14:52 36.9 79 18 150/69 (96) 95 Nasal Cannula 2.0 02/27/17 14:03 73 18 97 Nasal Cannula 2.0
[2017-02-28] MEDS: DIGOXIN 0.125 MG TAB PO SCH (15:28)
[2017-02-28] MEDS: POTASSIUM CHLORIDE 20 MEQ TABCR PO SCH (20:53)
[2017-02-28] MEDS: GUAIFENESIN/CODEINE 200MG/20MG 10ML UDC PO PRN (23:05)
[2017-02-28] MEDS: ACETAMINOPHEN 325 MG TAB PO PRN (23:06)
[2017-03-01] MEDS: ALBUT/IPRATROP 3MG/0.5MG NEB 3 ML VIAL INH SCH ×3 (07:03→19:40)
[2017-03-01 07:05] VITALS: PULSE 86; O2SAT 98
[2017-03-01 07:22] VITALS: BP 134/67; PULSE 69; TEMP 36.9; O2SAT 98
[2017-03-01] MEDS: MAGNESIUM OXIDE 400 MG TAB PO SCH ×2 (07:42→20:16)
[2017-03-01] MEDS: AZITHROMYCIN 250 MG TAB PO SCH (07:42)
[2017-03-01] MEDS: FLUTICASONE/SALMETEROL 250/50 (ADVAIR) 14 PUFF/1 INHALER INH SCH ×2 (07:42→20:11)
[2017-03-01] MEDS: LORAZEPAM 0.5 MG TAB PO SCH ×2 (07:42→20:10)
[2017-03-01] MEDS: APIXABAN 2.5 MG TAB PO SCH ×2 (07:42→20:15)
[2017-03-01] MEDS: MULTIVITAMIN TAB PO SCH (07:43)
[2017-03-01] MEDS: PANTOprazole SOD 40 MG TAB PO SCH (07:43)
[2017-03-01] MEDS: DILTIAZEM HCL 120 MG EXT REL CAP PO SCH (07:43)
[2017-03-01] MEDS: CALCIUM 600MG + VIT D 400 IU TAB PO SCH ×2 (07:43→20:11)
[2017-03-01] MEDS: TRIAMTERENE/HCTZ 37.5/25MG CAP PO SCH (07:43)
[2017-03-01] MEDS: SERTRALINE HCL 100 MG TAB PO SCH (07:43)
[2017-03-01] MEDS: GUAIFENESIN/CODEINE 200MG/20MG 10ML UDC PO PRN ×2 (11:22→18:39)
[2017-03-01] MEDS: METHYLPREDNISOLONE IV 30 MG in SYRINGE 0 ML IV SCH ×2 (11:22→23:54)
--- NOTE | 2017-03-01 13:17 | Progress Note ---
Internal Med Progress Note Date of Service: Mar 01, 2017. Provider Documentation: SUBJECTIVE: The patient was seen and examined Clinically much better No SOB and or wheezing at rest Gets SOB on exertion OBJECTIVE: Vital Signs-as noted below Exam: General-No distress at rest Eyes-normal ENT-normal Neck-supple Lungs-Decreased breath sound bilaterally No wheezing and or crackles Heart-Regular Abdomen-Benign,no masses,bowel sound present Extremities-No edema Neuro-AAOx3 Lab data as noted below. ASSESSMENT & PLAN: COPD EXACERBATION - hospital day 3 - patient presenting with persistent shortness of breath x 1 week despite outpatient use of Levaquin and Prednisone and also 1 dose each of IM solumedrol and Rocephin - s/p aztreonam in the ED; Azithromycin started to provide better atypical coverage (day 06/01) - no signs of pneumonia on CT chest, no signs of sepsis - decreased solumedrol today from 40mg q8h to 30mg q8h - Round the clock nebs, continue inhaled corticosteroid -Clinically much better -likely to be discharged in a day or two -will need PT/OT evaluation before discharge FALL - seems to be mechanical - left shoulder and hand XR negative - check CT head-negative - PT/OT-requested PAROXYSMAL ATRIAL FIBRILLATION - heart auscultates regular on exam - rate controlled on diltiazem and digoxin, continue both - anticoagulated on Eliquis, will continue DEPRESSION - continue sertraline -no acute issue GERD - continue PPI PULMONARY NODULES - noted on CT chest - will need follow up CT for monitoring as an OP DVT PROPHYLAXIS - on Eliquis DISPO - pending - PT/OT, case management consults - likely home with home services at discharge DISPOSITION Likely discharge in a day or two Vital Signs: Date Time Temp Pulse Resp B/P (MAP) Pulse Ox O2 Delivery O2 Flow Rate FiO2 03/01/17 09:00 Nasal Cannula 3.0 03/01/17 07:22 36.9 69 20 134/67 (89) 98 Nasal Cannula 2.0 03/01/17 07:05 86 18 98 Nasal Cannula 3.0 03/01/17 00:05 Nasal Cannula 3.0 02/28/17 22:12 36.7 76 16 146/74 (98) 96 Nasal Cannula 3.0 02/28/17 20:05 Nasal Cannula 3.0 02/28/17 19:15 97 20 93 Nasal Cannula 3.0 02/28/17 16:00 Nasal Cannula 3.0 02/28/17 15:28 74 02/28/17 15:09 36.9 69 20 131/66 (87) 95 Nasal Cannula 2.0 02/28/17 14:00 97 20 93 Nasal Cannula 3.0 Lab Results: Results Past 24 Hours Test 03/01/17 07:59 Range/Units Creatinine 1.00 0.60-1.20 mg/dl Est Creatinine Clear Calc Drug Dose 67.7 ml/min Estimated GFR () 67.5 Estimated GFR (Non- 58.3
[2017-03-01 14:10] VITALS: PULSE 75; O2SAT 98
[2017-03-01 15:45] VITALS: BP 118/67; PULSE 66; TEMP 36.8; O2SAT 98
[2017-03-01] MEDS: DIGOXIN 0.125 MG TAB PO SCH (16:18)
[2017-03-01 19:41] VITALS: PULSE 76; O2SAT 98
[2017-03-01] MEDS: POTASSIUM CHLORIDE 20 MEQ TABCR PO SCH (20:17)
[2017-03-01 23:58] VITALS: BP 155/69; PULSE 72; TEMP 36.7; O2SAT 99
[2017-03-02] VITALS (8 sets, daily range): BP systolic 136–137; BP diastolic 71–72; PULSE 68–86; TEMP 36.5–36.8; O2SAT 96–98
[2017-03-02] MEDS: ALBUT/IPRATROP 3MG/0.5MG NEB 3 ML VIAL INH SCH ×4 (01:42→19:07)
[2017-03-02] MEDS: LORAZEPAM 0.5 MG TAB PO SCH ×2 (07:40→20:38)
[2017-03-02] MEDS: FLUTICASONE/SALMETEROL 250/50 (ADVAIR) 14 PUFF/1 INHALER INH SCH ×2 (07:40→20:38)
[2017-03-02] MEDS: APIXABAN 2.5 MG TAB PO SCH ×2 (07:40→20:40)
[2017-03-02] MEDS: POTASSIUM CHLORIDE 10 MEQ TABCR PO SCH (07:40)
[2017-03-02] MEDS: TRIAMTERENE/HCTZ 37.5/25MG CAP PO SCH (07:41)
[2017-03-02] MEDS: PANTOprazole SOD 40 MG TAB PO SCH (07:41)
[2017-03-02] MEDS: CALCIUM 600MG + VIT D 400 IU TAB PO SCH ×2 (07:41→20:39)
[2017-03-02] MEDS: MULTIVITAMIN TAB PO SCH (07:41)
[2017-03-02] MEDS: SERTRALINE HCL 100 MG TAB PO SCH (07:41)
[2017-03-02] MEDS: AZITHROMYCIN 250 MG TAB PO SCH (07:41)
[2017-03-02] MEDS: MAGNESIUM OXIDE 400 MG TAB PO SCH ×2 (07:41→20:41)
[2017-03-02] MEDS: DILTIAZEM HCL 120 MG EXT REL CAP PO SCH (07:41)
[2017-03-02] MEDS ORDERED: MAGNESIUM HYDROXIDE SUSP 30 ML UDC PO ONE (08:45)
[2017-03-02] MEDS: SENNA 8.6 MG TAB PO SCH (08:49)
[2017-03-02] MEDS: METHYLPREDNISOLONE IV 30 MG in SYRINGE 0 ML IV SCH (12:19)
[2017-03-02] MEDS: DIGOXIN 0.125 MG TAB PO SCH (15:48)
--- NOTE | 2017-03-02 18:11 | Progress Note ---
Internal Med Progress Note Date of Service: Mar 02, 2017. Provider Documentation: SUBJECTIVE: The patient was seen and examined Clinically much better No SOB and or wheezing at rest Gets SOB on exertion Bowel not moved Not yet ready to be discharged OBJECTIVE: Vital Signs-as noted below Exam: General-No distress at rest Generally weak and lethargic Eyes-normal ENT-normal Neck-supple Lungs-Severly Decreased breath sound bilaterally No wheezing and or crackles Heart-Regular Abdomen-Benign,no masses,bowel sound present Extremities-No edema Neuro-AAOx3 Lab data as noted below. ASSESSMENT & PLAN: COPD EXACERBATION - hospital day 4 - patient presenting with persistent shortness of breath x 1 week despite outpatient use of Levaquin and Prednisone and also 1 dose each of IM solumedrol and Rocephin - s/p aztreonam in the ED; Azithromycin started to provide better atypical coverage (day 4/) - no signs of pneumonia on CT chest, no signs of sepsis - decreased solumedrol as advised - Round the clock nebs, continue inhaled corticosteroid -Clinically much better -likely to be discharged in a day or two -will need PT/OT evaluation before discharge -Likely to be discharged tomorrow FALL - seems to be mechanical - left shoulder and hand XR negative - check CT head-negative - PT/OT-requested PAROXYSMAL ATRIAL FIBRILLATION - heart auscultates regular on exam - rate controlled on diltiazem and digoxin, continue both - anticoagulated on Eliquis, will continue -rate is controlled DEPRESSION - continue sertraline -no acute issue GERD - continue PPI PULMONARY NODULES - noted on CT chest - will need follow up CT for monitoring as an OP DVT PROPHYLAXIS - on Eliquis DISPO - pending - PT/OT, case management consults - likely home with home services at discharge DISPOSITION Likely discharge tomorrow Vital Signs: Date Time Temp Pulse Resp B/P (MAP) Pulse Ox O2 Delivery O2 Flow Rate FiO2 03/02/17 16:02 36.5 71 18 136/71 (92) 97 Nasal Cannula 3.0 03/02/17 15:48 70 03/02/17 14:43 68 16 98 Nasal Cannula 3.0 03/02/17 14:41 96 03/02/17 09:00 Nasal Cannula 3.0 03/02/17 07:15 36.8 73 18 137/72 (93) 98 03/02/17 07:14 86 16 98 Nasal Cannula 3.0 03/02/17 01:42 76 16 98 Nasal Cannula 3.0 03/02/17 00:00 Nasal Cannula 3.0 03/01/17 23:58 36.7 72 20 155/69 (97) 99 Nasal Cannula 3.0 03/01/17 20:00 Nasal Cannula 3.0 03/01/17 19:41 76 16 98 Nasal Cannula 3.0
[2017-03-02] MEDS: POTASSIUM CHLORIDE 20 MEQ TABCR PO SCH (20:41)
[2017-03-03 00:05] VITALS: BP 146/64; PULSE 84; TEMP 36.6; O2SAT 98
[2017-03-03] MEDS: ALBUT/IPRATROP 3MG/0.5MG NEB 3 ML VIAL INH SCH ×2 (01:46→07:11)
[2017-03-03 01:47] VITALS: PULSE 72; O2SAT 97
[2017-03-03] MEDS: METHYLPREDNISOLONE IV 30 MG in SYRINGE 0 ML IV SCH (01:51)
[2017-03-03 06:01] LABS: HEMATOCRIT 43.5 % (37-47); MEAN CELL VOLUME 87.3 fL (80-100); MEAN CORPUSCULAR HEMOGLOBIN 27.1 pg (25-34); MEAN PLATELET VOLUME 10.7 fL (7.4-10.4); PLATELET COUNT 200 K/uL (130-400); RED BLOOD COUNT 4.98 M/uL (4.2-5.4)
[2017-03-03 06:35] LABS: BUN/CREATININE RATIO 29.6 (10-20); CALCIUM 8.6 mg/dl (8.5-10.1); CREATININE 1.04 mg/dl (0.60-1.20); MAGNESIUM 2.4 mg/dl (1.8-2.4); POTASSIUM 4.1 mmol/L (3.5-5.1)
[2017-03-03 06:36] LABS: PHOSPHORUS 3.1 mg/dl (2.5-4.9)
[2017-03-03 07:13] VITALS: PULSE 68; O2SAT 98
[2017-03-03 08:06] VITALS: BP 131/79; PULSE 67; TEMP 36.7; O2SAT 96
[2017-03-03] MEDS: LORAZEPAM 0.5 MG TAB PO SCH (08:22)
[2017-03-03] MEDS: FLUTICASONE/SALMETEROL 250/50 (ADVAIR) 14 PUFF/1 INHALER INH SCH (08:22)
[2017-03-03] MEDS: AZITHROMYCIN 250 MG TAB PO SCH (08:22)
[2017-03-03] MEDS: TRIAMTERENE/HCTZ 37.5/25MG CAP PO SCH (08:22)
[2017-03-03] MEDS: SERTRALINE HCL 100 MG TAB PO SCH (08:23)
[2017-03-03] MEDS: MULTIVITAMIN TAB PO SCH (08:23)
[2017-03-03] MEDS: PANTOprazole SOD 40 MG TAB PO SCH (08:23)
[2017-03-03] MEDS: APIXABAN 2.5 MG TAB PO SCH (08:23)
[2017-03-03] MEDS: DILTIAZEM HCL 120 MG EXT REL CAP PO SCH (08:23)
[2017-03-03] MEDS: CALCIUM 600MG + VIT D 400 IU TAB PO SCH (08:23)
[2017-03-03] MEDS: MAGNESIUM OXIDE 400 MG TAB PO SCH (08:23)
[2017-03-03] MEDS: POTASSIUM CHLORIDE 10 MEQ TABCR PO SCH (08:23)
[2017-03-03] MEDS: SENNA 8.6 MG TAB PO SCH (08:24)
--- NOTE | 2017-03-03 09:23 | Progress Note ---
Internal Med Progress Note Date of Service: Mar 03, 2017. Provider Documentation: SUBJECTIVE: The patient was seen and examined Clinically much better today Got Physical therapy yesterday and did good Denies any SOB at rest Has Home Oxygen Willing to go home today OBJECTIVE: Vital Signs-as noted below Exam: General-No distress at rest Generally weak and lethargic Eyes-normal ENT-normal Neck-supple Lungs-Severely Decreased breath sound bilaterally No wheezing and or crackles Heart-Regular Abdomen-Benign,no masses,bowel sound present Extremities-No edema Neuro-AAOx3 Lab data as noted below. ASSESSMENT & PLAN: COPD EXACERBATION - hospital day 4 - patient presenting with persistent shortness of breath x 1 week despite outpatient use of Levaquin and Prednisone and also 1 dose each of IM solumedrol and Rocephin - s/p aztreonam in the ED; Azithromycin started to provide better atypical coverage (day 08/01) - no signs of pneumonia on CT chest, no signs of sepsis - decreased solumedrol as advised - Round the clock nebs, continue inhaled corticosteroid -Clinically much better today -PT/OT initiated and did good with ambulation -willing to be discharged today -Discussed about the preventive measures to avoid an attack FALL - seems to be mechanical - left shoulder and hand XR negative - check CT head-negative - PT/OT-requested PAROXYSMAL ATRIAL FIBRILLATION - heart auscultates regular on exam - rate controlled on diltiazem and digoxin, continue both - anticoagulated on Eliquis, will continue -rate is controlled DEPRESSION - continue sertraline -no acute issue GERD - continue PPI PULMONARY NODULES - noted on CT chest - will need follow up CT for monitoring as an OP DVT PROPHYLAXIS - on Eliquis DISPO - pending - PT/OT, case management consults - likely home with home services at discharge DISPOSITION Discharge today Vital Signs: Date Time Temp Pulse Resp B/P (MAP) Pulse Ox O2 Delivery O2 Flow Rate FiO2 03/03/17 08:06 36.7 67 18 131/79 (96) 96 Nasal Cannula 2.0 03/03/17 07:13 68 18 98 Nasal Cannula 3.0 03/03/17 01:47 72 16 97 Nasal Cannula 3.0 03/03/17 00:05 Nasal Cannula 3.0 03/03/17 00:05 36.6 84 16 146/64 (91) 98 03/02/17 19:07 68 16 97 Nasal Cannula 3.0 03/02/17 18:00 97 Nasal Cannula 3.0 03/02/17 16:02 36.5 71 18 136/71 (92) 97 Nasal Cannula 3.0 03/02/17 15:48 70 03/02/17 14:43 68 16 98 Nasal Cannula 3.0 03/02/17 14:41 96 Lab Results: Results Past 24 Hours Test 03/03/17 05:45 Range/Units White Blood Count 11.40 4.8-10.8 K/uL Red Blood Count 4.98 4.2-5.4 M/uL Hemoglobin 13.5 12.0-16.0 g/dL Hematocrit 43.5 37-47 % Mean Corpuscular Volume 87.3 80-100 fL Mean Corpuscular Hemoglobin 27.1 25-34 pg Mean Corpuscular Hemoglobin Concent 31.0 32-36 g/dl RDW Standard Deviation 47.5 36.4-46.3 fL RDW Coefficient of Variation 14.9 11.5-14.5 % Platelet Count 200 130-400 K/uL Mean Platelet Volume 10.7 7.4-10.4 fL Sodium Level 133 136-145 mmol/L Potassium Level 4.1 3.5-5.1 mmol/L Chloride Level 96 98-107 mmol/L Carbon Dioxide Level 33 21-32 mmol/L Anion Gap 4.0 3-11 mmol/L Blood Urea Nitrogen 31 7-18 mg/dl Creatinine 1.04 0.60-1.20 mg/dl Est Creatinine Clear Calc Drug Dose 65.1 ml/min Estimated GFR () 64.4 Estimated GFR (Non- 55.6 BUN/Creatinine Ratio 29.6 10-20 Random Glucose 200 70-99 mg/dl Calcium Level 8.6 8.5-10.1 mg/dl Phosphorus Level 3.1 2.5-4.9 mg/dl Magnesium Level 2.4 1.8-2.4 mg/dl
[2017-03-03] MEDS ORDERED: PRED10TA PO (09:46)
--- NOTE | 2017-03-03 09:49 | Discharge Instructions ---
Discharge Instructions Date of Service Mar 03, 2017. Admission Reason for Admission: Copd Exacerbation Discharge Discharge Diagnosis / Problem: Exacerbation of COPD Discharge Goals Goal(s): Prevent Disease Progression Activity Recommendations Activity Limitations: resume your previous activity . Instructions / Follow-Up Instructions / Follow-Up Dr Bhatti on 03/06/17 at 11AM Current Hospital Diet Patient's current hospital diet: AHA Diet (Heart Healthy) Discharge Diet Recommended Diet: AHA Diet (Heart Healthy) Pending Studies Studies pending at discharge: no Medical Emergencies . Who to Call and When: Medical Emergencies: If at any time you feel your situation is an emergency, please call 911 immediately. . Non-Emergent Contact Non-Emergency issues call your: Primary Care Provider . Past History Medical & Surgical History: (1) COPD (chronic obstructive pulmonary disease) (2) Chronic respiratory failure (3) Paroxysmal atrial fibrillation (4) Hx multifocal atrial tachycardia (5) PFO (patent foramen ovale) (6) History of hysterectomy (7) H/O foot surgery (8) S/P T&A (status post tonsillectomy and adenoidectomy) . "Provider Documentation" section prepared by Cipriano Carlton. . VTE Core Measure Inpt VTE Proph given/why not?: Other Anticoagulation
[2017-03-03 09:55] VITALS: BP 131/79; PULSE 67; TEMP 36.7; O2SAT 96
--- NOTE | 2017-03-03 11:13 | Discharge Summary ---
Discharge Summary Date of Service Mar 03, 2017. Discharge Summary Admission Date: Feb 26, 2017 at 15:30 Discharge Date: Mar 03, 2017 Discharge Disposition: Home with services Principal Diagnosis: Exacerbation of COPD Secondary Diagnoses/Problems: Please see H&P and Hospital Progress note Medication Reconciliation New Medications: Prednisone (Prednisone) 10 Mg Tab 10 MG PO UD for 18 Days, #55 TAB 6 tabs PO daily for 3 dats,5 tabs PO daily for 3 days,4 tabs PO daily for 3 days,3 tabs PO daily for 3 days ,2 po Daily for 3 days and then 1 po daily for 3 days. Continued Medications: Albuterol Hfa (Ventolin Hfa) Unknown Strength Aers Unknown Dose INH Q6H PRN for SOB/Wheezing, #1 INHALER Apixaban (Eliquis) 5 Mg Tab 5 MG PO BID Benzonatate (Tessalon Perles) 100 Mg Cap 100 MG PO DAILY PRN for Cough Calcium/Vitamin D (Os-Carlos 500 Plus D) Tab 1 TAB PO BID, TAB Digoxin (Digoxin) 0.125 Mg Tab 0.125 MG PO DAILY Diltiazem Hcl Ext Rel (Tiazac) 240 Mg Capcr 240 MG PO DAILY Fluticasone Prop/Salmeterol (Advair Diskus 250/50 60 Dose) 1 Ea Aerp 1 PUFF INH BID Home O2 Therapy (Oxygen) Gas 3 LITERS NA CONTINOUS Ipratropium-Albuterol (Duoneb) 3 Ml Nebu 1 TREATMENT INH Q4H PRN for Shortness of Breath, INHA Lorazepam (Ativan) 0.5 Mg Tab 0.5 MG PO BID, TAB Magnesium Oxide (Mag-Ox) 400 Mg Tab 400 MG PO BID, TAB Multivitamin (Multivitamin) Tab 1 TAB PO DAILY, TAB Pantoprazole (Pantoprazole Sodium) 40 Mg Tab 40 MG PO DAILY Potassium Chloride (Potassium Chloride Er) 10 Meq Cap 30 MEQ PO DAILY for 90 Days, #270 CAP 1 Refill Potassium Chloride (Potassium Chloride Er) 10 Meq Cap 20 MEQ PO HS for 30 Days, CAP 5 Refills Sertraline HCl (Sertraline HCl) 100 Mg Tab 100 MG PO DAILY Tiotropium [place] (Spiriva Handihaler) 30 Puff/540 Mcg Aerp 1 CAP INH DAILY Triamterene/Hctz (Maxzide 75MG/50MG) Tab 0.5 TAB PO DAILY Admission Information HPI (per Admitting provider): 66 year old female who was referred to the ED by her PCP for shortness of breath. Patient was seen in the clinic on 02/20 for shortness of breath and cough. She was diagnosed with a COPD exacerbation. She was given Levaquin and prednisone taper. Patient was seen again in the clinic on 02/24 for continued symptoms and was given IM solumedrol and Rocephin. Symptoms have persisted. She was seen again in the clinic today and was referred to the ER for further evaluation. Patient chronically wears 3L of oxygen. She has not been hypoxic. She reports her chest feels tight and that it is hard to get a deep breath in. She has a chronic dry non productive cough. She has been running low grade fevers of around 100. She reports a poor appetite and generalized weakness and fatigue. She denies lightheadedness, dizziness, diaphoresis, or syncope. No abdominal pain, nausea, vomiting, or diarrhea. She denies urinary symptoms. In the ED, patient had a CT chest that was negative for acute findings. She is saturating well on her chronic 3L. She as given IV solumedrol, neb, IV aztreonam , and IVF. Past Medical/Surgical History Medical Problems: (1) Chronic respiratory failure Status: Chronic (2) COPD (chronic obstructive pulmonary disease) Permanent Comment: very severe Status: Chronic (3) Depression Status: Chronic (4) Hx multifocal atrial tachycardia Status: Chronic (5) Hx spontaneous pneumothorax Status: Chronic (6) Paroxysmal atrial fibrillation Status: Chronic (7) PFO (patent foramen ovale) Permanent Comment: with embolism to L hand Status: Chronic (8) Psoriasis Status: Chronic (9) Raynauds syndrome Status: Chronic Surgical Problems: (1) H/O foot surgery Status: Chronic (2) History of hysterectomy Status: Chronic (3) S/P T&A (status post tonsillectomy and adenoidectomy) Status: Chronic Family History FH: emphysema FATHER MOTHER FH: heart disease MOTHER GRANDFATHER GRANDMOTHER Social History Smoking Status: Former Smoker Alcohol Use: 1 drink/night Housing status: lives alone Occupational Status: unemployed Immunizations History of Influenza Vaccine: Yes Influenza Vaccine Date: Dec 09, 2016 History of Tetanus Vaccine?: Yes Tetanus Immunization Date: Dec 02, 2007 History of Pneumococcal: Yes Pneumococcal Date: Jan 30, 2017 Multi-Drug Resistant Organisms History of MDRO: No Allergies Coded Allergies: Penicillins (Verified Allergy, Severe, SWELLING OF TONGUE AND THROAT, ) Home Medications Scheduled Apixaban (Eliquis), 5 MG PO BID Calcium/Vitamin D (Os-Carlos 500 Plus D), 1 TAB PO BID Digoxin (Digoxin), 0.125 MG PO DAILY Diltiazem Hcl Ext Rel (Tiazac), 240 MG PO DAILY Fluticasone Prop/Salmeterol (Advair Diskus 250/50 60 Dose), 1 PUFF INH BID Home O2 Therapy (Oxygen), 3 LITERS NA CONTINOUS Lorazepam (Ativan), 0.5 MG PO BID Magnesium Oxide (Mag-Ox), 400 MG PO BID Multivitamin (Multivitamin), 1 TAB PO DAILY Pantoprazole (Pantoprazole Sodium), 40 MG PO DAILY Potassium Chloride (Potassium Chloride Er), 30 MEQ PO DAILY Potassium Chloride (Potassium Chloride Er), 20 MEQ PO HS Sertraline HCl (Sertraline HCl), 100 MG PO DAILY Tiotropium [place] (Spiriva Handihaler), 1 CAP INH DAILY Triamterene/Hctz (Maxzide 75MG/50MG), 0.5 TAB PO DAILY Scheduled PRN Albuterol Hfa (Ventolin Hfa), Unknown Dose INH Q6H PRN for SOB/Wheezing Benzonatate (Tessalon Perles), 100 MG PO DAILY PRN for Cough Ipratropium-Albuterol (Duoneb), 1 TREATMENT INH Q4H PRN for Shortness of Breath Review of Systems ROS per HPI, all other systems reviewed and negative Physical Ex - H&P Physical Exam Vital Signs Date Time Temp Pulse Resp B/P (MAP) Pulse Ox O2 Delivery O2 Flow Rate FiO2 02/26/17 15:32 75 20 123/77 97 Nasal Cannula 3.0 02/26/17 15:00 63 20 143/73 98 Nasal Cannula 3.0 02/26/17 13:42 65 20 143/70 99 Nasal Cannula 3.0 02/26/17 13:00 59 20 149/74 100 Nasal Cannula 3.0 02/26/17 12:40 99 Nasal Cannula 3.0 02/26/17 12:27 58 02/26/17 11:49 37.1 64 18 136/79 93 Nasal Cannula 3.0 General Appearance: WD/WN, no apparent distress Head: normocephalic, atraumatic Eyes: normal inspection, EOMI, sclerae normal ENT: hearing grossly normal, + pertinent finding (mucous membranes moist) Neck: supple, no JVD, trachea midline Respiratory/Chest: no respiratory distress, + decreased breath sounds (poor air entry noted throughout all lung schultz) Cardiovascular: regular rate, rhythm, no edema, normal peripheral pulses Abdomen/GI: normal bowel sounds, non tender, soft, no organomegaly Extremities/Musculoskelatal: normal inspection, no calf tenderness, normal capillary refill Neurologic/Psych: no motor/sensory deficits, alert, normal mood/affect, oriented x 3 Skin: normal color, warm/dry Diagnostics - H&P Diagnostics Laboratory Results Results Past 24 Hours Test 02/26/17 12:15 02/26/17 13:18 02/26/17 13:30 02/26/17 14:58 Range/Units White Blood Count 10.03 4.8-10.8 K/uL Red Blood Count 5.12 4.2-5.4 M/uL Hemoglobin 14.2 12.0-16.0 g/dL Hematocrit 45.8 37-47 % Mean Corpuscular Volume 89.5 80-100 fL Mean Corpuscular Hemoglobin 27.7 25-34 pg Mean Corpuscular Hemoglobin Concent 31.0 32-36 g/dl Platelet Count 218 130-400 K/uL Mean Platelet Volume 10.8 7.4-10.4 fL Neutrophils (%) (Auto) 87.8 % Lymphocytes (%) (Auto) 4.3 % Monocytes (%) (Auto) 7.5 % Eosinophils (%) (Auto) 0.1 % Basophils (%) (Auto) 0.0 % Neutrophils # (Auto) 8.81 1.4-6.5 K/uL Lymphocytes # (Auto) 0.43 1.2-3.4 K/uL Monocytes # (Auto) 0.75 0.11-0.59 K/uL Eosinophils # (Auto) 0.01 0-0.5 K/uL Basophils # (Auto) 0.00 0-0.2 K/uL RDW Standard Deviation 49.2 36.4-46.3 fL RDW Coefficient of Variation 15.3 11.5-14.5 % Immature Granulocyte % (Auto) 0.3 % Immature Granulocyte # (Auto) 0.03 0.00-0.02 K/uL Prothrombin Time 12.0 9.0-12.0 SECONDS Prothromb Time International Ratio 1.1 0.9-1.1 Activated Partial Thromboplast Time 26.9 21.0-31.0 SECONDS Partial Thromboplastin Ratio 1.0 Sodium Level 139 136-145 mmol/L Potassium Level 3.7 3.5-5.1 mmol/L Chloride Level 98 98-107 mmol/L Carbon Dioxide Level 36 21-32 mmol/L Anion Gap 5.0 3-11 mmol/L Blood Urea Nitrogen 20 7-18 mg/dl Creatinine 1.12 0.60-1.20 mg/dl Est Creatinine Clear Calc Drug Dose 61.5 ml/min Estimated GFR () 58.9 Estimated GFR (Non- 50.8 BUN/Creatinine Ratio 17.9 10-20 Random Glucose 100 70-99 mg/dl Calcium Level 8.9 8.5-10.1 mg/dl Magnesium Level 2.2 1.8-2.4 mg/dl Total Bilirubin 0.4 0.2-1 mg/dl Aspartate Amino Transf (AST/SGOT) 9 15-37 U/L Alanine Aminotransferase (ALT/SGPT) 19 12-78 U/L Alkaline Phosphatase 119 45-117 U/L Total Protein 7.3 6.4-8.2 gm/dl Albumin 4.0 3.4-5.0 gm/dl Globulin 3.3 2.5-4.0 gm/dl Albumin/Globulin Ratio 1.2 0.9-2 Troponin I < 0.015 0-0.045 ng/ml Bedside Lactic Acid Venous 1.16 0.90-1.70 mmol/L Influenza Type A (RT-PCR) Neg for Influ A NEG Influenza Type B (RT-PCR) Neg for Influ B NEG Test 02/26/17 15:35 02/26/17 15:50 Range/Units Urine Color YELLOW Urine Appearance CLEAR CLEAR Urine pH 7.0 4.5-7.5 Urine Specific [place] 1.019 1.000-1.030 Urine Protein NEG NEG Urine Glucose (UA) NEG NEG Urine Ketones NEG NEG Urine Occult Blood NEG NEG Urine Nitrite NEG NEG Urine Bilirubin NEG NEG Urine Urobilinogen NEG NEG Urine Leukocyte Esterase NEG NEG Urine WBC (Auto) 0 0-5 /hpf Urine RBC (Auto) 0-4 0-4 /hpf Urine Hyaline Casts (Auto) 0 0-5 /lpf Urine Epithelial Cells (Auto) 10-20 0-5 /lpf Urine Bacteria (Auto) NEG NEG Lactic Acid Level 1.9 0.4-2.0 mmol/L Microbiology Results 02/26/17 Blood Culture, Received Pending 02/26/17 Blood Culture, Received Pending Diagnostic Radiology CT CHEST IMPRESSION: 1. Interval increase in size of several solid and subsolid pulmonary nodules bilaterally, the largest on the right a solid nodule measuring 7 mm and the largest on the left a subsolid nodule measuring 13 mm follow-up per [employer] 2017 recommendations below. 2. No convincing evidence of an infectious etiology. Impression - H&P Impression Assessment and Plan COPD EXACERBATION - admit to med/surg - patient presenting with persistent shortness of breath x 1 week despite outpatient use of Levaquin and Prednisone and also 1 dose each of IM solumedrol and Rocephin - currently saturating well on chronic 3L of O2 - s/p aztreonam in the ED; will start Azithromycin to provide better atypical coverage - no signs of pneumonia on CT chest, no signs of sepsis - around the clock nebs, IV solumedrol, continue inhaled corticosteroid PAROXYSMAL ATRIAL FIBRILLATION - currently in NSR - rate controlled on diltiazem and digoxin, continue both - anticoagulated on Eliquis, will continue DEPRESSION - continue sertraline GERD - continue PPI PULMONARY NODULES - noted on CT chest - will need follow up CT for monitoring DVT PROPHYLAXIS - on Eliquis DISPO - In my clinical judgment this beneficiary meets acute admission criteria, established by [facility], that includes being hospitalized through two midnights. - PT/OT, case management consults ADDENDUM: I have seen and examined the patient and agree with the assessment and plan above. On exam she had no wheezing. She reported some coughing spells for which I am giving her Robitussin AC. She reports that her SOB got worse at home punctuated by some periods of coughing, but her concern was more the SOB. She was not requiring any more oxygen than her baseline 3L, however. She appears clinically euvolemic and not in heart failure. Cont Azithro, IV steroids and nebs overnight. May likely be able to de-escalate therapy soon if the wheezing does not return. Emanuel, DO VTE Prophylaxis VTE Risk Assessment Done? Y/N: Yes Risk Level: Moderate Physical Exam (per Admitting): General Appearance: WD/WN, no apparent distress Head: normocephalic, atraumatic Eyes: normal inspection, EOMI, sclerae normal ENT: hearing grossly normal, + pertinent finding (mucous membranes moist) Neck: supple, no JVD, trachea midline Respiratory/Chest: no respiratory distress, + decreased breath sounds (poor air entry noted throughout all lung schultz) Cardiovascular: regular rate, rhythm, no edema, normal peripheral pulses Abdomen/GI: normal bowel sounds, non tender, soft, no organomegaly Extremities/Musculoskelatal: normal inspection, no calf tenderness, normal capillary refill Neurologic/Psych: no motor/sensory deficits, alert, normal mood/affect, oriented x 3 Skin: normal color, warm/dry Hospital Course COPD EXACERBATION - hospital day 4 - patient presenting with persistent shortness of breath x 1 week despite outpatient use of Levaquin and Prednisone and also 1 dose each of IM solumedrol and Rocephin - s/p aztreonam in the ED; Azithromycin started to provide better atypical coverage (day 08/01) - no signs of pneumonia on CT chest, no signs of sepsis - decreased solumedrol as advised - Round the clock nebs, continue inhaled corticosteroid -Clinically much better today -PT/OT initiated and did good with ambulation -willing to be discharged today -Discussed about the preventive measures to avoid an attack FALL - seems to be mechanical - left shoulder and hand XR negative - check CT head-negative - PT/OT-requested PAROXYSMAL ATRIAL FIBRILLATION - heart auscultates regular on exam - rate controlled on diltiazem and digoxin, continue both - anticoagulated on Eliquis, will continue -rate is controlled DEPRESSION - continue sertraline -no acute issue GERD - continue PPI PULMONARY NODULES - noted on CT chest - will need follow up CT for monitoring as an OP DVT PROPHYLAXIS - on Eliquis DISPO - pending - PT/OT, case management consults - likely home with home services at discharge DISPOSITION Discharge today Total time spent on discharge = 35 minutes This includes examination of the patient, discharge planning, medication reconciliation, and communication with other providers. Discharge Instructions Date of Service Mar 03, 2017. Admission Reason for Admission: Copd Exacerbation Discharge Discharge Diagnosis / Problem: Exacerbation of COPD Discharge Goals Goal(s): Prevent Disease Progression Activity Recommendations Activity Limitations: resume your previous activity . Instructions / Follow-Up Instructions / Follow-Up Dr Bhatti on 03/06/17 at 11AM Current Hospital Diet Patient's current hospital diet: AHA Diet (Heart Healthy) Discharge Diet Recommended Diet: AHA Diet (Heart Healthy) Pending Studies Studies pending at discharge: no Medical Emergencies . Who to Call and When: Medical Emergencies: If at any time you feel your situation is an emergency, please call 911 immediately. . Non-Emergent Contact Non-Emergency issues call your: Primary Care Provider . Past History Medical & Surgical History: (1) COPD (chronic obstructive pulmonary disease) (2) Chronic respiratory failure (3) Paroxysmal atrial fibrillation (4) Hx multifocal atrial tachycardia (5) PFO (patent foramen ovale) (6) History of hysterectomy (7) H/O foot surgery (8) S/P T&A (status post tonsillectomy and adenoidectomy) . "Provider Documentation" section prepared by Cipriano Carlton. . VTE Core Measure Inpt VTE Proph given/why not?: Other Anticoagulation <Electronically signed by Cipriano Carlton M.D.> Signed: 03/03/17 [id number] Additional Copies To Aleyda Bhatti M.D.
== END 2017-03-03 10:56 | disposition home health service (06) | DRG 192 ==
LOC: C.EDB 11:43 → C.4E 15:30 → ENRESERV 16:12
PROVIDERS: ADMIT Hospitalist; ATTEND Internal Medicine
DX: J44.1 Chronic obstructive pulmonary disease with (acute) exacerbation (principal); Z82.0 Family history of epilepsy and other diseases of the nervous system; Z82.49 Family history of ischemic heart disease and other diseases of the circulatory system; Z87.891 Personal history of nicotine dependence; Z79.01 Long term (current) use of anticoagulants; I48.0 Paroxysmal atrial fibrillation; F32.9 Major depressive disorder, single episode, unspecified; K21.9 Gastro-esophageal reflux disease without esophagitis; W19.XXXA Unspecified fall, initial encounter; R91.1 Solitary pulmonary nodule

== ENCOUNTER → 2017-05-12 | Day surgery (SDC) | payer OTHER ==
[2017-04-22 13:58] VITALS: Ht 172.7 cm; Wt 100.0 kg
[~2017-05-12] VITALS: Ht 172.7 cm; Wt 100.0 kg
[~2017-05-12] MED LIST changes: +500ML BSS 0.3ML EPI 1:1000PF IRRIG ONE; -ACET300T PO; +ACETAMINOPHEN 325 MG TAB PO PRN; +ADVIN25/60 INH; -ALBUAER2 INH; +AMVISC PLUS 0.8ML SYRINGE INT OCU ONE; +APIX1TAB3 PO; -ASPI81TA28 PO; +ATROPINE SULFATE 0.1 MG/ML 5ML SYR IV PRN; -BENZ100C84 PO; +BSS FLUSH ONE; -CALC600T57 PO; -CDN15 PO; -CYCL10TA6 PO; -DESO0.0562 TOP; +DILT-115 PO; -DLTCD/240 PO; +EpHEDrine SULFATE INJ 50 MG/ML AMP IV PRN; +EpINEphrine INJ 1MG/ML AMP 1 MG/ML AMP ONE; +LACTATED RINGER'S 1000ML 500 ML IV SCH; -LDXS20 TOP; -LEVO1TAB33 PO; +LIDOCAINE 3.5% OPH GEL PER APPLICATION CHARGE ONE; +LIDOCAINE HCL 1% MPF 2 ML VIAL ONE; +LNX125 PO; -LVQ500 PO; +MIDAZOLAM HCL 1 MG/ML 2ML VIAL ONE; -MULT-506 PO; -NF34 TOP; +ONDANSETRON INJ 2 MG/ML 2 ML VIAL IV PRN; -POTA10TA32 PO; +POTA1CAP2 PO; +POVIDONE-IODINE OP SOLN 30 ML BTL ONE; +PROPARACAINE 0.5% OP SOLN PER DROP CHARGE OPR SCH; -SYMIN160 INH; +TOBRAMYCIN/DEXAMETHASONE OPH OINT PER APPLN CHARGE ONE; -TRIA37.5 PO; +TRIA37.53 PO; +VNTHFA/IN INH; -WARF-246 PO; -WSTO TOP; -ZOLP5TAB PO
[2017-05-12] MEDS: PHENYLEPHRINE HCL 2.5% OP SOLN PER DROP CHARGE OPR SCH ×2 (06:47→06:50)
[2017-05-12] MEDS: TROPICAMIDE 1% OP SOLN PER DROP CHARGE OPR SCH ×2 (06:48→06:51)
[2017-05-12] MEDS: CYCLOPENTOLATE HCL 1% OP SOLN PER DROP CHARGE OPR SCH ×2 (06:48→06:53)
[2017-05-12] MEDS: GATIFLOXACIN OP SOLN PER DROP CHARGE OPR SCH ×2 (06:49→06:55)
[2017-05-12] MEDS: KETOROLAC 0.5% OP SOLN PER DROP CHARGE OPR SCH ×2 (06:49→06:54)
--- NOTE | 2017-05-12 07:25 | History & Physical Bridge - [place] ---
H&P Re-Evaluation Bridge Note: I have examined the patient, reviewed the History & Physical and in the interval since the performance of the History & Physical I have noted the following changes of clinical significance: Diagnosis: Right Cataract Procedure: Right Cataract Removal with Lens Implant No changes noted
--- NOTE | 2017-05-12 08:06 | [facility] Operative Report ---
Operative Report Date of Service May 12, 2017. Operative Report 1. PREOPERATIVE DIAGNOSIS: Cataract of the right eye. 2. POSTOPERATIVE DIAGNOSIS: Same. 3. PROCEDURE: Phacoemulsification with intraocular lens implantation of the right eye. SURGEON: Dr. Jonatan Mims. ANESTHESIA: Topical Lidocaine gel, 1% Non- Preserved intracameral Lidocaine, and monitored intravenous sedation. INDICATIONS FOR THE PROCEDURE: The patient is a 66 - year-old female with a history of cataract of the right eye causing significant visual impairment. The details of the proposed procedure were explained to the patient who asked appropriate questions and following discussion of all risks, benefits and alternatives agreed to have the procedure done. 4. OPERATION AND FINDINGS: DESCRIPTION OF PROCEDURE: After informed consent was obtained, the patient was brought to the Operating Room at the [facility]. The patient was placed in a supine position and then the right eye was prepped and draped in the usual sterile fashion for intraocular surgery. A drop of topical Lidocaine gel was placed in the operative eye. A wire lid speculum was then placed in the fornices. A corneal paracentesis was then created temporally. The Non-Preserved Lidocaine was then instilled into the anterior chamber. The anterior chamber was then pressurized with viscoelastic. A 2.0 mm clear corneal incision was then created temporally. A cystotome was inserted into the anterior chamber and used to create a tear in the anterior lens capsule. This capsular tear was then used to create a small flap and the flap was dragged in a counterclockwise direction in order to create a continuous curvilinear capsulorrhexis. Hydrodissection was accomplished with balanced salt solution. Phacoemulsification of the lens nucleus was then performed in a standard [id number] technique. The phaco time was 22 seconds with an average power of 10 %. The remaining cortical material was removed using irrigation aspiration. The capsular bag was then filled with viscoelastic. A B[employer]ch [employer] Lomb MI60L +18.5 diopters lens was then loaded into the injector and injected into the capsular bag. The remaining viscoelastic was removed with the irrigation aspiration handpiece. The wound was hydrated and then checked and found to be watertight. The intraocular pressure was checked and found to be adequate. The wire lid speculum was removed and the patient's face was cleaned and dried. TobraDex ointment was placed in the inferior fornix. The patient was discharged to the Recovery Room having tolerated the procedure well. There were no complications. The patient will be seen tomorrow in the office for follow-up. I attest to the content of the Intraoperative Record and any orders documented therein. Any exceptions are noted below.
--- NOTE | 2017-05-12 08:07 | Discharge Instructions-SurgCtr ---
Discharge Instructions Date of Service May 12, 2017. Visit Reason for Visit: Right Cataract Discharge Discharge Diagnosis / Problem: cataract Discharge Goals Goal(s): Improve function Activity Recommendations Activity Limitations: per Instructions/Follow-up section Anesthesia . Post Anesthesia Instructions: If you have had General Anesthesia or IV Sedation: * Do not drive today. * Resume driving when surgeon permits. * Do not make important decisions or sign legal documents today. * Call surgeon for: 1. Temperature elevations greater than 101 degrees F. 2. Uncontrollable pain. 3. Excessive bleeding. 4. Persistent nausea and vomiting. 5. Medication intolerance (nausea, vomiting or rash). * For nausea and vomiting use only clear liquids such as: tea, soda, bouillon until nausea subsides, then gradually increase diet as tolerated. * If you have any concerns or questions, call your surgeon's office. If physician is unavailable and it is an emergency, call 911 or go to the nearest emergency room. . Diet Recommendations Home Diet: resume previous diet Procedures Procedures Performed: Right Cataract Phacoemulsification With Intraocular Lens Implant Pending Studies Studies pending at discharge: no Medical Emergencies . Who to Call and When: Medical Emergencies: If at any time you feel your situation is an emergency, please call 911 immediately. . Non-Emergent Contact Non-Emergency issues call your: Power Generating Plant Operator . . "Provider Documentation" section prepared by Jonatan Mims. .
[2017-05-12 08:09] VITALS: TEMP 36.7; O2SAT 96
--- NOTE | 2017-05-12 08:28 | Anesthesia Progress Nt - [facility] ---
Anesthesia Post Op Note Date & Time May 12, 2017 at 08:27 Vital Signs Pain Intensity: 0 Vital Signs Past 12 Hours Date Time Temp Pulse Resp B/P (MAP) Pulse Ox O2 Delivery O2 Flow Rate FiO2 05/12/17 08:09 36.7 71 14 112/68 (83) 96 Nasal Cannula 3 05/12/17 06:31 37. 62 20 164/80 (108) 95 Nasal Cannula 3 Notes Mental Status: alert / awake / arousable, participated in evaluation Pt Amnestic to Procedure: Yes Nausea / Vomiting: adequately controlled Pain: adequately controlled Airway Patency, RR, SpO2: stable & adequate BP & HR: stable & adequate Hydration State: stable & adequate Anesthetic Complications: no major complications apparent
[2017-05-12 08:36] VITALS: BP 137/71; PULSE 76
== END | disposition home or self-care (01) ==
LOC: X.SURG 06:12
PROVIDERS: ATTEND Ophthalmology
DX: H26.9 Unspecified cataract (principal); J44.9 Chronic obstructive pulmonary disease, unspecified; I48.0 Paroxysmal atrial fibrillation; G47.33 Obstructive sleep apnea (adult) (pediatric); I73.00 Raynaud's syndrome without gangrene; F33.40 Major depressive disorder, recurrent, in remission, unspecified; E66.9 Obesity, unspecified; Z88.0 Allergy status to penicillin; Z79.899 Other long term (current) drug therapy; Z90.89 Acquired absence of other organs; Z90.710 Acquired absence of both cervix and uterus; Z87.891 Personal history of nicotine dependence; Z83.6 Family history of other diseases of the respiratory system; Z82.49 Family history of ischemic heart disease and other diseases of the circulatory system; Z82.61 Family history of arthritis

== ENCOUNTER → 2017-05-26 | Day surgery (SDC) | payer OTHER ==
[2017-05-19 10:55] VITALS: Ht 172.7 cm; Wt 100.0 kg
[~2017-05-26] VITALS: Ht 172.7 cm; Wt 100.0 kg
[~2017-05-26] MED LIST changes: +OCUCOAT 1 ML SOLN IO ONE; +PROPARACAINE 0.5% OP SOLN PER DROP CHARGE OPL SCH; -PROPARACAINE 0.5% OP SOLN PER DROP CHARGE OPR SCH
[2017-05-26] MEDS: GATIFLOXACIN OP SOLN PER DROP CHARGE OPL SCH ×2 (06:15→06:37)
[2017-05-26] MEDS: PHENYLEPHRINE HCL 2.5% OP SOLN PER DROP CHARGE OPL SCH ×2 (06:33→06:38)
[2017-05-26] MEDS: TROPICAMIDE 1% OP SOLN PER DROP CHARGE OPL SCH ×2 (06:34→06:39)
[2017-05-26] MEDS: CYCLOPENTOLATE HCL 1% OP SOLN PER DROP CHARGE OPL SCH ×2 (06:35→06:39)
[2017-05-26] MEDS: KETOROLAC 0.5% OP SOLN PER DROP CHARGE OPL SCH ×2 (06:36→06:41)
--- NOTE | 2017-05-26 06:59 | History & Physical Bridge - [facility] ---
H&P Re-Evaluation Bridge Note: I have examined the patient, reviewed the History & Physical and in the interval since the performance of the History & Physical I have noted the following changes of clinical significance Diagnosis: Left Cataract Procedure: Left Cataract Removal with Lens Implant : No changes noted
--- NOTE | 2017-05-26 07:39 | [facility] Operative Report ---
Operative Report Date of Service May 26, 2017. Operative Report 1. PREOPERATIVE DIAGNOSIS: Cataract of the left eye. 2. POSTOPERATIVE DIAGNOSIS: Same. 3. PROCEDURE: Phacoemulsification with intraocular lens implantation of the left eye. SURGEON: Dr. Jonatan Mims. ANESTHESIA: Topical Lidocaine gel, 1% Non- Preserved intracameral Lidocaine, and monitored intravenous sedation. INDICATIONS FOR THE PROCEDURE: The patient is a 66 - year-old female with a history of cataract of the left eye causing significant visual impairment. The details of the proposed procedure were explained to the patient who asked appropriate questions and following discussion of all risks, benefits and alternatives agreed to have the procedure done. 4. OPERATION AND FINDINGS: DESCRIPTION OF PROCEDURE: After informed consent was obtained, the patient was brought to the Operating Room at the [facility]. The patient was placed in a supine position and then the left eye was prepped and draped in the usual sterile fashion for intraocular surgery. A drop of topical Lidocaine gel was placed in the operative eye. A wire lid speculum was then placed in the fornices. A corneal paracentesis was then created temporally. The Non-Preserved Lidocaine was then instilled into the anterior chamber. The anterior chamber was then pressurized with viscoelastic. A 2.0 mm clear corneal incision was then created temporally. A cystotome was inserted into the anterior chamber and used to create a tear in the anterior lens capsule. This capsular tear was then used to create a small flap and the flap was dragged in a counterclockwise direction in order to create a continuous curvilinear capsulorrhexis. Hydrodissection was accomplished with balanced salt solution. Phacoemulsification of the lens nucleus was then performed in a standard [id number] technique. The phaco time was 15 seconds with an average power of 10 %. The remaining cortical material was removed using irrigation aspiration. The capsular bag was then filled with viscoelastic. A Bausch & Lomb MI60L +20.0 diopters lens was then loaded into the injector and injected into the capsular bag. The remaining viscoelastic was removed with the irrigation aspiration handpiece. The wound was hydrated and then checked and found to be watertight. The intraocular pressure was checked and found to be adequate. The wire lid speculum was removed and the patient's face was cleaned and dried. TobraDex ointment was placed in the inferior fornix. The patient was discharged to the Recovery Room having tolerated the procedure well. There were no complications. The patient will be seen tomorrow in the office for follow-up. I attest to the content of the Intraoperative Record and any orders documented therein. Any exceptions are noted below.
--- NOTE | 2017-05-26 07:40 | Discharge Instructions-SurgCtr ---
Discharge Instructions Date of Service May 26, 2017. Visit Reason for Visit: Left Cataract Discharge Discharge Diagnosis / Problem: cataract Discharge Goals Goal(s): Improve function Activity Recommendations Activity Limitations: per Instructions/Follow-up section Anesthesia . Post Anesthesia Instructions: If you have had General Anesthesia or IV Sedation: * Do not drive today. * Resume driving when surgeon permits. * Do not make important decisions or sign legal documents today. * Call surgeon for: 1. Temperature elevations greater than 101 degrees F. 2. Uncontrollable pain. 3. Excessive bleeding. 4. Persistent nausea and vomiting. 5. Medication intolerance (nausea, vomiting or rash). * For nausea and vomiting use only clear liquids such as: tea, soda, bouillon until nausea subsides, then gradually increase diet as tolerated. * If you have any concerns or questions, call your surgeon's office. If physician is unavailable and it is an emergency, call 911 or go to the nearest emergency room. . Diet Recommendations Home Diet: resume previous diet Procedures Procedures Performed: Left Cataract Phacoemulsification With Intraocular Lens Implant Pending Studies Studies pending at discharge: no Medical Emergencies . Who to Call and When: Medical Emergencies: If at any time you feel your situation is an emergency, please call 911 immediately. . Non-Emergent Contact Non-Emergency issues call your: Aerosol Line Operator . . "Provider Documentation" section prepared by Jonatan Mims. .
[2017-05-26 07:42] VITALS: TEMP 36.4
--- NOTE | 2017-05-26 08:09 | Anesthesia Progress Nt - [facility] ---
Anesthesia Post Op Note Date & Time May 26, 2017 at 08:09 Vital Signs Pain Intensity: 0 Vital Signs Past 12 Hours Date Time Temp Pulse Resp B/P (MAP) Pulse Ox O2 Delivery O2 Flow Rate FiO2 05/26/17 07:42 36.4 83 12 147/80 (102) 98 Nasal Cannula 3 05/26/17 06:21 36.8 88 16 167/91 (116) 95 Nasal Cannula 3 Notes Mental Status: alert / awake / arousable, participated in evaluation Pt Amnestic to Procedure: Yes Nausea / Vomiting: adequately controlled Pain: adequately controlled Airway Patency, RR, SpO2: stable & adequate BP & HR: stable & adequate Hydration State: stable & adequate Anesthetic Complications: no major complications apparent
[2017-05-26 08:12] VITALS: BP 118/71; PULSE 80; O2SAT 98
== END | disposition home or self-care (01) ==
LOC: X.SURG 06:06
PROVIDERS: ATTEND Ophthalmology
DX: H26.9 Unspecified cataract (principal); J44.9 Chronic obstructive pulmonary disease, unspecified; F41.1 Generalized anxiety disorder; L40.8 Other psoriasis; J43.9 Emphysema, unspecified; I73.00 Raynaud's syndrome without gangrene; I48.0 Paroxysmal atrial fibrillation; F33.40 Major depressive disorder, recurrent, in remission, unspecified; Z79.899 Other long term (current) drug therapy; Z82.49 Family history of ischemic heart disease and other diseases of the circulatory system; Z83.6 Family history of other diseases of the respiratory system; Z82.61 Family history of arthritis; Z87.891 Personal history of nicotine dependence

== ENCOUNTER → 2017-07-03 | Outpatient (CLI) | payer OTHER ==
[~2017-07-03] MED LIST changes: -500ML BSS 0.3ML EPI 1:1000PF IRRIG ONE; -ACETAMINOPHEN 325 MG TAB PO PRN; -AMVISC PLUS 0.8ML SYRINGE INT OCU ONE; -ATROPINE SULFATE 0.1 MG/ML 5ML SYR IV PRN; -BSS FLUSH ONE; -EpHEDrine SULFATE INJ 50 MG/ML AMP IV PRN; -EpINEphrine INJ 1MG/ML AMP 1 MG/ML AMP ONE; -LACTATED RINGER'S 1000ML 500 ML IV SCH; -LIDOCAINE 3.5% OPH GEL PER APPLICATION CHARGE ONE; -LIDOCAINE HCL 1% MPF 2 ML VIAL ONE; -MIDAZOLAM HCL 1 MG/ML 2ML VIAL ONE; -OCUCOAT 1 ML SOLN IO ONE; -ONDANSETRON INJ 2 MG/ML 2 ML VIAL IV PRN; +OPTIRAY 320 IV PRN; -POVIDONE-IODINE OP SOLN 30 ML BTL ONE; -PROPARACAINE 0.5% OP SOLN PER DROP CHARGE OPL SCH; -TOBRAMYCIN/DEXAMETHASONE OPH OINT PER APPLN CHARGE ONE
--- NOTE | 2017-07-03 13:29 | DIAGNOSTIC IMAGING REPORT ---
CT SCAN OF THE CHEST WITH IV CONTRAST CLINICAL HISTORY: Follow-up pulmonary nodules. COMPARISON STUDY: Chest CT scans dated 02/26/2017 and 04/15/2014. TECHNIQUE: Following the IV administration of 86 cc of Optiray 320, CT scan of the thorax was performed from the thoracic inlet to the upper abdomen. Images are reviewed in the axial, sagittal, and coronal planes. IV contrast was administered without complication. A dose lowering technique was utilized adhering to the principles of ALARA. CT DOSE: 330.29 mGycm FINDINGS: Thyroid: Imaged portions of the thyroid gland are normal in size and attenuation. Thoracic aorta: The thoracic aorta is normal in caliber and demonstrates standard 3-vessel arch anatomy. No dissection is seen. Pulmonary vasculature: The pulmonary trunk is normal in caliber. There are no filling defects identified in the central pulmonary vessels to indicate pulmonary embolus. Note that this examination was not protocoled for evaluation of the pulmonary arteries. Heart: The heart is top normal in size and without pericardial effusion. Lungs and pleural spaces: Emphysema and apical scarring are similar to previous. No airspace consolidation or pleural effusion are identified. The trachea and central airways are clear. There is a 13 mm irregular groundglass lesion in the left upper lobe seen on image #133. This has increased in size from 04/15/2014 and is highly concerning for low-grade neoplasm. An additional 12 mm groundglass lesion is seen at the right lung base on image #195. An 8 mm irregular nodule in the right middle lobe as seen on image #172. There are at least 10 additional pulmonary nodules scattered throughout both lungs measuring up to 4 mm (left upper lobe images #139 and #68, right middle lobe images #157 and #168, right lower lobe image #189) Mediastinum: There is no mediastinal lymphadenopathy. Milly: Clear. Axillae: There is no axillary lymphadenopathy. Upper abdomen: Partially visualized upper abdominal viscera is within normal limits. Skeletal structures: The skeletal structures are osteopenic. Mild degenerative change and hyperkyphosis are noted in the thoracic spine. No lytic or blastic bony lesions are seen. IMPRESSION: 1. Emphysema. 2. There is a 13 mm irregular groundglass lesion in the left upper lobe. This has increased in size dating back to 04/15/2014 when it measured up to 6 mm and should be considered low-grade neoplasm until proven otherwise. 3. A subtle 12 mm groundglass lesion at the right lung base is unchanged from 02/26/2017 but new from 2015. This is pathologically indeterminant but is increasingly conspicuous from the prior study. Neoplasm is not excluded. 4. Numerous additional pulmonary nodules are identified with both groundglass and solid characteristics. These remain pathologically indeterminant and have been present dating back to 04/15/2014. The largest 8 mm nodule in the right middle lobe is irregular and has also increased in size from that time. Continued follow-up of these additional nodules is recommended. 5. No airspace consolidation or pleural effusion is identified. 6. Additional findings as above. Please refer to below summary of Fleischner criteria recommendations for follow-up of incidental CT nodules (Sunshine Mack, Guidelines for management of small pulmonary nodules detected on CT scans: A statement from the Fleischner Society, Radiology 237: [phone].) SOLID NODULES Solitary nodule size: <6 mm * low risk patients: no follow-up needed * high risk patients: optional CT at 12 months Solitary nodule size: 6-8 mm * low risk patients: follow-up at 6-12 months, then consider further follow-up at 18-24 months * high risk patients: initial follow-up CT at 6-12 months and then at 18-24 months if no change Solitary nodule size: >8 mm * either low or high risk patients - consider follow-up CT at 3 months, and/or CT-PET, and/or biopsy Multiple nodules size: <6 mm * low risk patients: no routine follow-up * high risk patients: optional CT at 12 months Multiple nodules size: 6-8 mm * low risk patients: follow-up at 3-6 months, then consider further follow-up at 18-24 months * high risk patients: follow-up at 3-6 months, then at 18-24 months if no change Multiple nodules size: >8 mm * low risk patients: follow-up at 3-6 months, then consider further follow-up at 18-24 months * high risk patients: follow-up at 3-6 months, then at 18-24 months if no change Note: newly detected indeterminate nodule in persons 35 years of age or older. * low risk patients: minimal or absent history of smoking and/or other known risk factors * high risk patients: history of smoking or of other known risk factors (e.g. first degree relative with lung cancer, or exposure to asbestos, radon, uranium) * if a nodule up to 8 mm is partly solid or is ground glass further follow-up is required after 24 months to exclude possible slow growing adenocarcinoma (RAUL) SUBSOLID NODULES Solitary pure ground-glass nodule * nodule size <6 mm - no CT follow-up required * nodule size >=6 mm - follow-up CT at 6-12 months, then every 2 years until 5 years Solitary part-solid nodule * nodule size <6 mm - no CT follow-up required * nodule size >=6 mm - follow-up CT at 3-6 months. If unchanged, and solid component remains <6 mm, then annual follow-up for 5 years Multiple subsolid nodules * nodule size <6 mm - follow-up CT at 3-6 months, consider further follow-up at 2 and 4 years if stable * nodule size >=6 mm - follow-up CT at 3-6 months, subsequent management based on the most suspicious nodule(s) Electronically signed by: Rishi Alvarez M.D. 07/03/2017 1:27 PM Dictated Date/Time: 07/03/2017 1:16 PM
--- NOTE | 2017-07-03 16:18 | ECHOCARDIOGRAM REPORT ---
*NOTICE TO RECEIVING REPUBLICAN AGENCY This information is strictly Confidential and protected under [place] law. [place] law prohibits you from making any further disclosure of this information unless further disclosure is expressly permitted by the written consent of the person to whom it pertains or is authorized by law. A general authorization for the release of medical or other information is not sufficient for this purpose. Hospital accepts no responsibility if the information is made available to any other person, INCLUDING THE PATIENT. Interpretation Summary * Name: EUGENIO LIM Study Date: 07/03/2017 01:28 PM BP: 143/67 mmHg * Patient Location: [facility] HR: 74 * : 1950 (M/d/yyyy) Gender: Female Height: 69 in * Age: 66 yrs Ethnicity: CA Weight: 216 lb * Ordering Physician: Ajit Rojas * Referring Physician: Ajit Rojas * Performed By: Shira Mcgovern RDCS * * Reason For Study: Multiple pulmonary nodules, bubble study * BSA: 2.1 m2 * -- Conclusions -- * Left ventricular systolic function is low normal. * No regional wall motion abnormalities noted. * Ejection Fraction = 50-55%. * Injection of contrast documented no interatrial shunt. Procedure Details * A complete two-dimensional transthoracic echocardiogram was performed (2D, M-mode, Doppler and color flow Doppler). * A saline contrast injection was performed to assess for cardiac shunting. * The injection was performed through an intravenous line in the left arm. * The attending nurse who injected the saline contrast was Gaby Ricardo RN. * A total of 20 cc of agitated saline was given. Left Ventricle * The left ventricle is normal in size. * There is normal left ventricular wall thickness. * Ejection Fraction = 50-55%. * Left ventricular systolic function is low normal. * No regional wall motion abnormalities noted. Right Ventricle * The right ventricle is grossly normal size. * The right ventricular systolic function is normal as assessed by tricuspid annular plane systolic excursion (TAPSE) (normal >1.5 cm). Atria * The left atrium is mildly dilated. * Right atrium not well visualized. * Injection of contrast documented no interatrial shunt. Mitral Valve * The mitral valve is grossly normal. * There is no mitral valve stenosis. * Significant mitral regurgitation is absent. Tricuspid Valve * The tricuspid valve is not well visualized, but is grossly normal. * Tricuspid stenosis is absent. * Significant tricuspid regurgitation is absent. Aortic Valve * The aortic valve is trileaflet. * The aortic valve opens well. * No hemodynamically significant valvular aortic stenosis. * No aortic regurgitation is present. Pulmonic Valve * The pulmonary valve is not well seen, but the Doppler examination is normal without significant regurgitation or stenosis. Great Vessels * The aortic root is normal size. * The pulmonary is not well visualized. Pericardium/Pleural * There is no pericardial effusion. Great Vessels * Normal inferior vena cava size and collapsability with sniff indicates a normal right atrial pressure of 3 mmHg MMode 2D Measurements and Calculations IVSd 1.1 cm LVIDd 4.2 cm LVIDs 3.0 cm LVPWd 1.2 cm IVS/LVPW 0.87 FS 27.1 % EDV(Teich) 77.2 ml ESV(Teich) 36.1 ml EF(Teich) 53.2 % EDV(cubed) 72.4 ml ESV(cubed) 28.0 ml EF(cubed) 61.3 % LV mass(C)d 168.5 grams LV mass(C)dI 79.0 grams/m\S\2 SV(Teich) 41.1 ml SI(Teich) 19.3 ml/m\S\2 SV(cubed) 44.4 ml SI(cubed) 20.8 ml/m\S\2 LA dimension 3.6 cm LVAd ap4 30.0 cm\S\2 LVLd ap4 7.7 cm EDV(MOD-sp4) 96.3 ml EDV(sp4-el) 99.7 ml LVAs ap4 20.0 cm\S\2 LVLs ap4 6.7 cm ESV(MOD-sp4) 49.4 ml ESV(sp4-el) 50.8 ml EF(MOD-sp4) 48.7 % EF(sp4-el) 49.1 % LVAd ap2 29.9 cm\S\2 LVLd ap2 7.7 cm EDV(MOD-sp2) 95.8 ml EDV(sp2-el) 98.9 ml LVAs ap2 19.7 cm\S\2 LVLs ap2 6.8 cm ESV(MOD-sp2) 47.9 ml ESV(sp2-el) 48.4 ml EF(MOD-sp2) 50.0 % EF(sp2-el) 51.1 % LVLd %diff 0.42 % EDV(MOD-bp) 96.4 ml LVLs %diff 2.5 % ESV(MOD-bp) 49.0 ml EF(MOD-bp) 49.2 % SV(MOD-sp4) 46.9 ml SI(MOD-sp4) 22.0 ml/m\S\2 SV(MOD-sp2) 47.9 ml SI(MOD-sp2) 22.4 ml/m\S\2 SV(MOD-bp) 47.5 ml SI(MOD-bp) 22.2 ml/m\S\2 SV(sp4-el) 48.9 ml SI(sp4-el) 22.9 ml/m\S\2 SV(sp2-el) 50.5 ml SI(sp2-el) 23.7 ml/m\S\2 Doppler Measurements and Calculations MV E max vivek 50.4 cm/sec MV A max vivek 67.4 cm/sec MV E/A 0.75 MV dec time 0.27 sec Ao V2 max 110.1 cm/sec Ao max PG 4.9 mmHg Ao max PG (full) 1.2 mmHg LV V1 max PG 3.7 mmHg LV V1 max 96.0 cm/sec PA V2 max 74.7 cm/sec PA max PG 2.2 mmHg PA acc slope 498.4 cm/sec\S\2 PA acc time 0.12 sec PA pr(Accel) 25.1 mmHg
== END | disposition home or self-care (01) ==
LOC: C.CTS 12:19
PROVIDERS: ATTEND Internal Medicine Critical Care Medicine
DX: R91.8 Other nonspecific abnormal finding of lung field (principal); J43.9 Emphysema, unspecified

== ENCOUNTER 2017-10-25 18:45 | Emergency (ER) | payer OTHER ==
[~2017-10-25] VITALS: Ht 175.3 cm; Wt 106.0 kg
[~2017-10-25 18:45] MED LIST changes: +BENZ100C84 PO; +DXY100 PO; -IPRASOL4 INH; -OPTIRAY 320 IV PRN; -TRIA37.53 PO; +TRIA75TA53 PO
[2017-10-25 18:47] VITALS: TEMP 36.9; Ht 175.3 cm; Wt 106.0 kg
[2017-10-25] MEDS ORDERED: ALBUT/IPRATROP 3MG/0.5MG NEB 3 ML VIAL INH STA ×2 (18:54→19:21)
[2017-10-25] MEDS ORDERED: METHYLPREDNISOLONE 125 MG VIAL IV STA (18:54)
--- NOTE | 2017-10-25 19:05 | EMERGENCY ROOM VISIT NOTE ---
History Report prepared by Veronika: Ajit Albright Under the Supervision of: Dr. Rodger Moise M.D. First contact with patient: 18:50 Chief Complaint: SHORTNESS OF BREATH Stated Complaint: DIFFICULTY BREATHING, FEVER History of Present Illness The patient is a 67 year old female who presents to the Emergency Room with complaints of intermittent shortness of breath that began today. Patient describes her breathing as "hard" and "rough". She adds she has a history of COPD, lung collapse, and atrial fibrillation. She denies using any breathing treatments since this morning. She does not remember ever being intubated but denies ever being in the ICU. Patient adds she has been "hot and sweaty" with a temperature almost at a "100". She adds she has been weaker than usual with shakiness in her legs. Patient states she has been coughing "a lot" but unable to bring anything up. Patient states she takes Eliquis, prednisone, and started a 10 day course of doxycycline recently. Patient states she quit smoking in 1996. She adds she uses 3L of oxygen at home normally. Patient adds she had heartburn earlier in the day but it has resolved. Patient denies chest pain and loss of consciousness. Source of History: patient Onset: Today Position: chest Quality: other ("Hard" / "rough") Timing: intermittent Modifying Factors (Relieving): other (None) Associated Symptoms: + fevers, + cough, + weakness, No LOC, No chest pain Note: Positive leg shakiness. Review of Systems See HPI for pertinent positives and negatives. A total of ten systems were reviewed and were otherwise negative. Past Medical & Surgical Medical Problems: (1) Chronic respiratory failure (2) COPD (chronic obstructive pulmonary disease) (3) Depression (4) Hx multifocal atrial tachycardia (5) Hx spontaneous pneumothorax (6) Paroxysmal atrial fibrillation (7) PFO (patent foramen ovale) (8) Psoriasis (9) Raynauds syndrome Surgical Problems: (1) H/O foot surgery (2) History of hysterectomy (3) S/P T&A (status post tonsillectomy and adenoidectomy) Family History FH: emphysema FATHER MOTHER FH: heart disease MOTHER GRANDFATHER GRANDMOTHER Social History Smoking Status: Never Smoker Alcohol Use: occasionally Marital Status: Housing Status: lives alone Occupation Status: retired Current/Historical Medications Scheduled Apixaban (Eliquis), 5 MG PO BID Digoxin (Digoxin), 0.125 MG PO QAM Diltiazem Hcl Ext Rel (Tiazac), 240 MG PO QAM Doxycycline Hyclate (Doxycycline Hyclate), 100 MG PO BID Fluticasone Prop/Salmeterol (Advair Diskus 250/50 60 Dose), 1 PUFF INH BID Home O2 Therapy (Oxygen), 3 LITERS NA CONTINOUS Lorazepam (Ativan), 0.5 MG PO BID Magnesium Oxide (Mag-Ox), 400 MG PO BID Pantoprazole (Pantoprazole Sodium), 40 MG PO QAM Potassium Chloride (Potassium Chloride Er), 30 MEQ PO QAM Potassium Chloride (Potassium Chloride Er), 20 MEQ PO HS Prednisone (Prednisone), 50 MG PO DAILY Sertraline HCl (Sertraline HCl), 100 MG PO QAM Tiotropium [place] (Spiriva Handihaler), 1 CAP INH QAM Triamterene/Hctz (Maxzide 75MG/50MG), 0.5 TAB PO DAILY Scheduled PRN Albuterol Hfa (Ventolin Hfa), 2-4 PUFFS INH Q6H PRN for Shortness of Breath Allergies Coded Allergies: Penicillins (Verified Allergy, Severe, SWELLING OF TONGUE AND THROAT, 10/25) Physical Exam Vital Signs Date Time Temp Pulse Resp B/P (MAP) Pulse Ox O2 Delivery O2 Flow Rate FiO2 10/25/17 20:31 95 10/25/17 20:30 94 20 124/72 97 Nasal Cannula 3.0 10/25/17 19:30 102 14 98 Nasal Cannula 3.0 10/25/17 19:13 96 Nasal Cannula 2.0 10/25/17 18:57 95 Nasal Cannula 3.0 10/25/17 18:47 36.9 95 18 131/64 95 Nasal Cannula 3.0 Physical Exam Physical Exam GENERAL: She is oriented to person, place, and time. She appears well- developed and well-nourished. She does not appear distressed. She is wearing oxygen from home. HENT: Exam performed. Head: Normocephalic and atraumatic. Right Ear: External ear normal. No mastoid tenderness. Left Ear: External ear normal. No mastoid tenderness. Mouth/Throat: The oropharynx is clear and moist. No trismus in the jaw. No dental abscesses or uvula swelling. No oropharyngeal exudate or tonsillar abscesses. EYES: Conjunctivae and EOM are normal. Pupils are equal, round, and reactive to light. Right eye exhibits no discharge. Left eye exhibits no discharge. No scleral icterus. NECK: Normal range of motion. Neck supple. No JVD present. No spinous process tenderness present. No carotid bruit present. No rigidity. No tracheal deviation and normal range of motion present. No Brudzinski's sign and no Kernig 's sign noted. CV: Normal rate, irregular rhythm, normal heart sounds and intact distal pulses. There is no peripheral edema. Palpable radial pulses bue. PULM/CHEST: Diminished breath sounds bilaterally otherwise effort normal. No respiratory distress. No stridor. She has no wheezes. She has no rales. Chest Wall: She exhibits no tenderness. ABD: The abdomen is soft. Bowel sounds are normal. She has no distension. No mass is present. There is no tenderness. There is no rebound, no guarding, no Augustine's sign and no tenderness at McBurney's point. Rovsig negative MUSC/SKEL: Normal range of motion. There is no peripheral edema, tenderness or deformity. LYMPH: No cervical adenopathy. NEURO: She is alert and oriented to person, place, and time. She has normal strength. No cranial nerve deficit or sensory deficit. Coordination and gait normal. GCS eye subscore is 4. GCS verbal subscore is 5. GCS motor subscore is 6. Cerebellar tests wnl. SKIN: Skin is warm and dry. She is not diaphoretic. PSYCH: She has a normal mood and affect. Behavior is normal. Judgment and thought content normal. Medical Decision & Procedures ER Provider Diagnostic Interpretation: Radiology results as stated below per my review and radiologist interpretation: CHEST 2 VIEWS ROUTINE CLINICAL HISTORY: sob copd dyspnea COMPARISON STUDY: 09/24/2017 FINDINGS: Mild stable cardia megaly. Lungs are clear. Diaphragms smooth. Minimal pleural reactive change right costophrenic angle. IMPRESSION: Chronic change. No acute process. The above report was generated using voice recognition software. It may contain grammatical, syntax or spelling errors. Electronically signed by: Frankie Schuler M.D. 10/25/2017 8:25 PM Laboratory Results 10/25/17 19:00 Red Blood Count 5.10, Mean Corpuscular Volume 89.0, Mean Corpuscular Hemoglobin 28.0, Mean Corpuscular Hemoglobin Concent 31.5, Mean Platelet Volume 10.3, Neutrophils (%) (Auto) 92.6, Lymphocytes (%) (Auto) 3.8, Monocytes (%) (Auto) 3.3, Eosinophils (%) (Auto) 0.0, Basophils (%) (Auto) 0.1, Neutrophils # (Auto) 8.04, Lymphocytes # (Auto) 0.33, Monocytes # (Auto) 0.29, Eosinophils # (Auto) 0.00, Basophils # (Auto) 0.01 10/25/17 19:00 Test 10/25/17 19:00 White Blood Count 8.69 K/uL (4.8-10.8) Red Blood Count 5.10 M/uL (4.2-5.4) Hemoglobin 14.3 g/dL (12.0-16.0) Hematocrit 45.4 % (37-47) Mean Corpuscular Volume 89.0 fL (80-100) Mean Corpuscular Hemoglobin 28.0 pg (25-34) Mean Corpuscular Hemoglobin Concent 31.5 g/dl (32-36) Platelet Count 213 K/uL (130-400) Mean Platelet Volume 10.3 fL (7.4-10.4) Neutrophils (%) (Auto) 92.6 % Lymphocytes (%) (Auto) 3.8 % Monocytes (%) (Auto) 3.3 % Eosinophils (%) (Auto) 0.0 % Basophils (%) (Auto) 0.1 % Neutrophils # (Auto) 8.04 K/uL (1.4-6.5) Lymphocytes # (Auto) 0.33 K/uL (1.2-3.4) Monocytes # (Auto) 0.29 K/uL (0.11-0.59) Eosinophils # (Auto) 0.00 K/uL (0-0.5) Basophils # (Auto) 0.01 K/uL (0-0.2) RDW Standard Deviation 48.7 fL (36.4-46.3) RDW Coefficient of Variation 14.9 % (11.5-14.5) Immature Granulocyte % (Auto) 0.2 % Immature Granulocyte # (Auto) 0.02 K/uL (0.00-0.02) Venous Blood pH 7.38 (7.36-7.41) Venous Blood Partial Pressure CO2 56 mmHg (38.0-50.0) Venous Blood Partial Pressure O2 47 mmHg Venous Blood HCO3 32 mmol/L Venous Blood Oxygen Saturation 80.9 % Venous Blood Base Excess 5.1 mEq/L Anion Gap 5.0 mmol/L (3-11) Est Creatinine Clear Calc Drug Dose 63.5 ml/min Estimated GFR () 59.7 Estimated GFR (Non- 51.5 BUN/Creatinine Ratio 16.7 (10-20) Calcium Level 9.0 mg/dl (8.5-10.1) Troponin I < 0.015 ng/ml (0-0.045) Pro-B-Type Natriuretic Peptide 1190 pg/ml (0-900) Laboratory results reviewed by me Medications Administered Medications (Trade) Dose Ordered Sig/Angela Route Start Time Stop Time Status Last Admin Dose Admin Albuterol/ Ipratropium (Duoneb) 3 ml NOW STAT INH 10/25/17 18:54 10/25/17 18:57 DC 10/25/17 19:11 3 ML Methylprednisolone Sodium Succinate (Solu-Medrol IV) 125 mg NOW STAT IV 10/25/17 18:54 10/25/17 18:57 DC 10/25/17 19:11 125 MG Albuterol/ Ipratropium (Duoneb) 3 ml NOW STAT INH 10/25/17 19:21 10/25/17 19:22 DC 10/25/17 19:27 3 ML ECG Per My Interpretation Indication: SOB/dyspnea Rate (beats per minute): 103 Rhythm: atrial flutter Findings: other (QRS and QTc are within normal limits, no ST segment elevation/ depression) Comparison ECG Date: 09/24/17 Change: no significant change ED Course 1849: The patient was evaluated in room C5. A complete history and physical exam was performed. 1853: Solu-Medrol IV 125mg IV and Duoneb 3ml INH 1920: Duoneb 3ml INH 1923: EMR reviewed. Patient had a negative ECHO done on 06/2017 which showed an injection fracture at 50-55% and no wall motion abnormalities. 2034: I reevaluated the patient. Patients vital signs are stable. She states she feels better on continued oxygen home dosage. Status post 2 Duonebs and Solu -Medrol. Repeat physical examination shows no wheezing. CXR within normal limits with no evidence of fluid overload. Pro BNP elevated. Patient has no JVD , rales, and pitting edema in bilateral LE. No findings on X-ray suggestive of CHF. Given these findings and recent negative ECHO patient was discharged and referred to her PCP for follow-up concerning her elevated pro BNP. Patient was discharged to follow her doxycycline regimen and changed from a prednisone taper to prednisone burst for 5 days. DISCHARGE - Plan of care discussed with patient and questions answered. The patient was given both verbal and printed discharge instructions. The patient verbalized understanding and ability to comply. The patient is to seek outpatient follow up as noted in the discharge instructions. The patient verbalized understanding and ability to comply. The patient is discharged in stable condition. The patient was instructed to return for worsening symptoms. Medical Decision Patients vital signs are stable. She states she feels better on continued oxygen home dosage. Status post 2 Duonebs and Solu-Medrol. Repeat physical examination shows no wheezing. CXR within normal limits with no evidence of fluid overload. Pro BNP elevated. Patient has no JVD, rales, and pitting edema in bilateral LE. No findings on X-ray suggestive of CHF. Given these findings and recent negative ECHO patient was discharged and referred to her PCP for follow-up concerning her elevated pro BNP. Patient was discharged to follow her doxycycline regimen and changed from a prednisone taper to prednisone burst for 5 days. DISCHARGE - Plan of care discussed with patient and questions answered. The patient was given both verbal and printed discharge instructions. The patient verbalized understanding and ability to comply. The patient is to seek outpatient follow up as noted in the discharge instructions. The patient verbalized understanding and ability to comply. The patient is discharged in stable condition. The patient was instructed to return for worsening symptoms. Medication Reconcilliation Current Medication List: was personally reviewed by me Blood Pressure Screening Patient's blood pressure: Elevated blood pressure Blood pressure disposition: Elevated BP felt to be situational Impression Primary Impression: COPD exacerbation Scribe Attestation The scribe's documentation has been prepared under my direction and personally reviewed by me in its entirety. I confirm that the note above accurately reflects all work, treatment, procedures, and medical decision making performed by me. The chart was completed utilizing Dragon Speech voice recognition software. Grammatical errors, random word insertions, pronoun errors, and incomplete sentences are an occasional consequence of this system due to software limitations, ambient noise, and hardware issues. Any formal questions or concerns about the content, text, or information contained within the body of this dictation should be directly addressed to the physician for clarification. Departure Information Dispostion Home / Self-Care Prescriptions Prednisone (Prednisone) 50 Mg Tab 50 MG PO DAILY for 4 Days, #4 TAB Prov: Rodger Moise M.D. 10/25/17 Referrals Aleyda Bhatti M.D. (PCP) Forms HOME CARE DOCUMENTATION FORM, IMPORTANT VISIT INFORMATION Patient Instructions COPD - [facility], [facility] Additional Instructions Return to the emergency department if you develop chest pain, leg swelling, cough up blood, fever greater than 100.4, or your symptoms worsen. Stop steroid taper and begin steroids prescribed in the emergency department.
[2017-10-25 19:13] VITALS: O2SAT 96
[2017-10-25 19:20] LABS: BASO % 0.1 %; BASO ABS # 0.01 K/uL (0-0.2); HEMATOCRIT 45.4 % (37-47); HEMOGLOBIN 14.3 g/dL (12.0-16.0); IG# 0.02 K/uL (0.00-0.02); LYMPH % 3.8 %; LYMPH ABS # 0.33 K/uL (1.2-3.4); MEAN CORPUSCULAR HGB CONC 31.5 g/dl (32-36); MEAN PLATELET VOLUME 10.3 fL (7.4-10.4); MONO % 3.3 %; MONO ABS # 0.29 K/uL (0.11-0.59); NEUT % 92.6 %; NEUT ABS # 8.04 K/uL (1.4-6.5); PLATELET COUNT 213 K/uL (130-400); RED CELL DISTRIBUTION WIDTH CV 14.9 % (11.5-14.5); RED CELL DISTRIBUTION WIDTH SD 48.7 fL (36.4-46.3); WHITE BLOOD COUNT 8.69 K/uL (4.8-10.8)
[2017-10-25] MEDS ORDERED: PRED10TA PO (19:31)
[2017-10-25] MEDS ORDERED: DOXY1TAB6 PO (19:31)
[2017-10-25 19:46] LABS: BLOOD UREA NITROGEN 18 mg/dl (7-18); CARBON DIOXIDE 32 mmol/L (21-32); GLUCOSE 150 mg/dl (70-99); POTASSIUM 4.1 mmol/L (3.5-5.1); SODIUM 139 mmol/L (136-145)
--- NOTE | 2017-10-25 20:26 | DIAGNOSTIC IMAGING REPORT ---
CHEST 2 VIEWS ROUTINE CLINICAL HISTORY: sob copd dyspnea COMPARISON STUDY: 09/24/2017 FINDINGS: Mild stable cardia megaly. Lungs are clear. Diaphragms smooth. Minimal pleural reactive change right costophrenic angle. IMPRESSION: Chronic change. No acute process. The above report was generated using voice recognition software. It may contain grammatical, syntax or spelling errors. Electronically signed by: Frankie Schuler M.D. 10/25/2017 8:25 PM Dictated Date/Time: 10/25/2017 8:25 PM
[2017-10-25 20:30] VITALS: BP 124/72; O2SAT 97
[2017-10-25 20:31] VITALS: PULSE 95
[2017-10-25] MEDS ORDERED: PRED50TA PO (20:36)
== END 2017-10-25 20:59 | disposition home or self-care (01) ==
LOC: C.EDB 18:46 → C.EDC 20:59
DX: J44.1 Chronic obstructive pulmonary disease with (acute) exacerbation (principal); R03.0 Elevated blood-pressure reading, without diagnosis of hypertension; I48.91 Unspecified atrial fibrillation; R50.9 Fever, unspecified; R53.1 Weakness; Z87.891 Personal history of nicotine dependence; Z79.01 Long term (current) use of anticoagulants; Z79.52 Long term (current) use of systemic steroids; Z99.81 Dependence on supplemental oxygen; Z79.899 Other long term (current) drug therapy; Z88.0 Allergy status to penicillin; Z83.6 Family history of other diseases of the respiratory system

== ENCOUNTER → 2017-10-29 | Outpatient (CLI) | payer OTHER ==
[~2017-10-29] MED LIST changes: -BENZ100C84 PO; +DOXY1TAB6 PO; -DXY100 PO; +PRED50TA PO
--- NOTE | 2017-10-29 10:36 | DIAGNOSTIC IMAGING REPORT ---
(CHEST) THORAX WITHOUT CT DOSE: 356.67 mGycm HISTORY: Dyspnea R06.02 Shortness of [id number] TECHNIQUE: Multiaxial CT images of the chest were performed without contrast. A dose lowering technique was utilized adhering to the principles of ALARA. COMPARISON: 07/03/2017 FINDINGS: Unchanged groundglass nodular density left upper lung measuring 9 x 12 mm. This is similar. Additional nodular densities which are in previous described are unchanged. They show no increase or decrease in size or configuration. Chronic apical fibrotic changes similar. Mediastinal and hilar regions show no significant adenopathy. IMPRESSION: Bilateral nodular densities unchanged. Dominant groundglass nodular density left upper lung unchanged. No new or interval finding. The above report was generated using voice recognition software. It may contain grammatical, syntax or spelling errors. Electronically signed by: Frankie Schuler M.D. 10/29/2017 10:35 AM Dictated Date/Time: 10/29/2017 10:34 AM
== END | disposition home or self-care (01) ==
LOC: C.CTS 10:02
PROVIDERS: ATTEND Internal Medicine Critical Care Medicine
DX: R06.02 Shortness of breath (principal); R91.8 Other nonspecific abnormal finding of lung field

== ENCOUNTER 2017-11-24 12:16 | Emergency (ER) | payer OTHER ==
[~2017-11-24] VITALS: Ht 175.3 cm; Wt 100.3 kg
[~2017-11-24 12:16] MED LIST changes: -PRED50TA PO
[2017-11-24 12:24] VITALS: TEMP 36.9; O2SAT 98; Ht 175.3 cm; Wt 100.3 kg
[2017-11-24 13:19] LABS: BASO % 0.2 %; BASO ABS # 0.02 K/uL (0-0.2); EOS % 0.1 %; EOS ABS # 0.01 K/uL (0-0.5); HEMATOCRIT 42.3 % (37-47); HEMOGLOBIN 12.8 g/dL (12.0-16.0); IG# 0.09 K/uL (0.00-0.02); LYMPH % 3.1 %; LYMPH ABS # 0.39 K/uL (1.2-3.4); MEAN CELL VOLUME 87.9 fL (80-100); MEAN CORPUSCULAR HEMOGLOBIN 26.6 pg (25-34); MEAN CORPUSCULAR HGB CONC 30.3 g/dl (32-36); MEAN PLATELET VOLUME 10.4 fL (7.4-10.4); MONO ABS # 0.49 K/uL (0.11-0.59); NEUT % 91.9 %; NEUT ABS # 11.39 K/uL (1.4-6.5); PLATELET COUNT 192 K/uL (130-400); RED CELL DISTRIBUTION WIDTH CV 14.7 % (11.5-14.5); RED CELL DISTRIBUTION WIDTH SD 47.8 fL (36.4-46.3); WHITE BLOOD COUNT 12.39 K/uL (4.8-10.8)
[2017-11-24 13:21] LABS: PTT PATIENT 21.3 SECONDS (21.0-31.0)
--- NOTE | 2017-11-24 13:24 | DIAGNOSTIC IMAGING REPORT ---
CHEST ONE VIEW PORTABLE HISTORY: 67 years-old Female Evaluate Fever/Sepsis acute fever with sepsis COMPARISON: Chest radiograph 10/25/2017, CT chest 10/29/2017 TECHNIQUE: Portable AP view of the chest FINDINGS: Cardiac silhouette is upper limits of normal in size, unchanged. Calcification of the aorta. Mild subsegmental bibasilar atelectasis/scarring. No pneumothorax, pleural effusion or overt pulmonary edema. Bones of the chest appear grossly intact. IMPRESSION: No acute process. The above report was generated using voice recognition software. It may contain grammatical, syntax or spelling errors. Electronically signed by: Maximilian Vora M.D. 11/24/2017 1:23 PM Dictated Date/Time: 11/24/2017 1:22 PM
[2017-11-24] MEDS ORDERED: PRED50TA PO (13:34)
[2017-11-24 13:44] LABS: ALBUMIN 3.1 gm/dl (3.4-5.0); ALKALINE PHOSPHATASE 88 U/L (45-117); ALT/SGPT 22 U/L (12-78); AST/SGOT 9 U/L (15-37); BLOOD UREA NITROGEN 19 mg/dl (7-18); CALCIUM 7.6 mg/dl (8.5-10.1); CARBON DIOXIDE 24 mmol/L (21-32); CKMB 1.1 ng/ml (0.5-3.6); CREATININE 1.15 mg/dl (0.60-1.20); GLUCOSE 124 mg/dl (70-99); POTASSIUM 3.3 mmol/L (3.5-5.1); SODIUM 141 mmol/L (136-145)
--- NOTE | 2017-11-24 14:00 | EMERGENCY ROOM VISIT NOTE ---
History Report prepared by Veronika: Ephraim Duran Under the Supervision of: Dr. Aroldo Mcclain D.O. First contact with patient: 12:21 Chief Complaint: CARDIAC ASSESSMENT Stated Complaint: L SHOULDER PAIN & ARM NUMBNESS Nursing Triage Summary: pt started last night with pain in the middle of her shoulder blades last night she states it radiated to her left side she states she took her inhaler/neb with no relief, but was able to sleep she states she has had a cough with no production this morning she started with left shoulder pain that radiates to her left arm, with numbness and tingling to her fingers EMS started an IV, gave her 324 baby aspirin and increased her oxygen to 4L they report she had reliefof symptoms pt arrives dyspneic appearing, has a hx of COPD, wears 3L O2 @ home pt reports current blood thinner, Eliquis History of Present Illness The patient is a 67 year old female who presents to the Emergency Room with complaints of shortness of breath that worsened acutely this morning. The patient states that this morning she could not take more than 10 steps without becoming short of breath and needing "a rest." The patient notes that she has a history of "severe" COPD. She also complains of some left arm "tingling" and "numbness" this morning as well as feeling "weak and wobbly" on her feet today. Source of History: patient Onset: This morning Position: chest (SOB) Quality: other (SOB) Timing: worsening Associated Symptoms: + numbness (Left arm) Review of Systems See HPI for pertinent positives & negatives. A total of 10 systems reviewed and were otherwise negative. Past Medical & Surgical Medical Problems: (1) Chronic respiratory failure (2) COPD (chronic obstructive pulmonary disease) (3) Depression (4) Hx multifocal atrial tachycardia (5) Hx spontaneous pneumothorax (6) Paroxysmal atrial fibrillation (7) PFO (patent foramen ovale) (8) Psoriasis (9) Raynauds syndrome Surgical Problems: (1) H/O foot surgery (2) History of hysterectomy (3) S/P T&A (status post tonsillectomy and adenoidectomy) Family History FH: emphysema FATHER MOTHER FH: heart disease MOTHER GRANDFATHER GRANDMOTHER Social History Smoking Status: Former Smoker Alcohol Use: occasionally Marital Status: Housing Status: lives alone Occupation Status: retired Current/Historical Medications Scheduled Apixaban (Eliquis), 5 MG PO BID Digoxin (Digoxin), 0.125 MG PO QAM Diltiazem Hcl Ext Rel (Tiazac), 240 MG PO QAM Fluticasone Prop/Salmeterol (Advair Diskus 250/50 60 Dose), 1 PUFF INH BID Home O2 Therapy (Oxygen), 3 LITERS NA CONTINOUS Lorazepam (Ativan), 0.5 MG PO BID Magnesium Oxide (Mag-Ox), 400 MG PO BID Pantoprazole (Pantoprazole Sodium), 40 MG PO QAM Potassium Chloride (Potassium Chloride Er), 30 MEQ PO QAM Potassium Chloride (Potassium Chloride Er), 20 MEQ PO HS Prednisone (Prednisone), 50 MG PO BID Sertraline HCl (Sertraline HCl), 100 MG PO QAM Tiotropium [place] (Spiriva Handihaler), 1 CAP INH QAM Triamterene/Hctz (Maxzide 75MG/50MG), 0.5 TAB PO DAILY Scheduled PRN Albuterol Hfa (Ventolin Hfa), 2-4 PUFFS INH Q6H PRN for Shortness of Breath Allergies Coded Allergies: Penicillins (Verified Allergy, Severe, SWELLING OF TONGUE AND THROAT, 11/24) Physical Exam Vital Signs Date Time Temp Pulse Resp B/P (MAP) Pulse Ox O2 Delivery O2 Flow Rate FiO2 11/24/17 13:30 101 18 133/78 98 Nasal Cannula 3.0 11/24/17 12:47 108 11/24/17 12:32 111 24 147/73 99 Nasal Cannula 3.0 11/24/17 12:24 98 Nasal Cannula 3.0 11/24/17 12:24 36.9 99 24 162/111 99 Nasal Cannula 3.0 Physical Exam CONSTITUTIONAL/VITAL SIGNS: Reviewed / noted above. GENERAL: Non-toxic in appearance. INTEGUMENTARY: Warm, dry, and [place]. HEAD: Normocephalic. EYES: without scleral icterus or trauma. ENT/OROPHARYNX: clear and moist. LYMPHADENOPATHY/NECK: Is supple without lymphadenopathy or meningismus. RESPIRATORY: Lungs clear and equal. CARDIOVASCULAR: Regular rate and rhythm. GI/ABDOMEN: Soft and nontender. No organomegaly or pulsatile mass. No rebound or guarding. Normal bowel sounds. EXTREMITIES: Warm and well perfused. BACK: No CVA tenderness. NEUROLOGICAL: Intact without focal deficits. PSYCHIATRIC: normal affect. MUSCULOSKELETAL: Normally developed with good muscle tone. Medical Decision & Procedures ER Provider Diagnostic Interpretation: Radiology results as stated below per my review and radiologist interpretation: CHEST ONE VIEW PORTABLE HISTORY: 67 years-old Female Evaluate Fever/Sepsis acute fever with sepsis COMPARISON: Chest radiograph 10/25/2017, CT chest 10/29/2017 TECHNIQUE: Portable AP view of the chest FINDINGS: Cardiac silhouette is upper limits of normal in size, unchanged. Calcification of the aorta. Mild subsegmental bibasilar atelectasis/scarring. No pneumothorax, pleural effusion or overt pulmonary edema. Bones of the chest appear grossly intact. IMPRESSION: No acute process. The above report was generated using voice recognition software. It may contain grammatical, syntax or spelling errors. Electronically signed by: Maximilian Vora M.D. 11/24/2017 1:23 PM Dictated Date/Time: 11/24/2017 1:22 PM Laboratory Results 11/24/17 12:40 Red Blood Count 4.81, Mean Corpuscular Volume 87.9, Mean Corpuscular Hemoglobin 26.6, Mean Corpuscular Hemoglobin Concent 30.3, Mean Platelet Volume 10.4, Neutrophils (%) (Auto) 91.9, Lymphocytes (%) (Auto) 3.1, Monocytes (%) (Auto) 4.0, Eosinophils (%) (Auto) 0.1, Basophils (%) (Auto) 0.2, Neutrophils # (Auto) 11.39, Lymphocytes # (Auto) 0.39, Monocytes # (Auto) 0.49, Eosinophils # (Auto) 0.01, Basophils # (Auto) 0.02 11/24/17 12:40 Test 11/24/17 12:40 White Blood Count 12.39 K/uL (4.8-10.8) Red Blood Count 4.81 M/uL (4.2-5.4) Hemoglobin 12.8 g/dL (12.0-16.0) Hematocrit 42.3 % (37-47) Mean Corpuscular Volume 87.9 fL (80-100) Mean Corpuscular Hemoglobin 26.6 pg (25-34) Mean Corpuscular Hemoglobin Concent 30.3 g/dl (32-36) Platelet Count 192 K/uL (130-400) Mean Platelet Volume 10.4 fL (7.4-10.4) Neutrophils (%) (Auto) 91.9 % Lymphocytes (%) (Auto) 3.1 % Monocytes (%) (Auto) 4.0 % Eosinophils (%) (Auto) 0.1 % Basophils (%) (Auto) 0.2 % Neutrophils # (Auto) 11.39 K/uL (1.4-6.5) Lymphocytes # (Auto) 0.39 K/uL (1.2-3.4) Monocytes # (Auto) 0.49 K/uL (0.11-0.59) Eosinophils # (Auto) 0.01 K/uL (0-0.5) Basophils # (Auto) 0.02 K/uL (0-0.2) RDW Standard Deviation 47.8 fL (36.4-46.3) RDW Coefficient of Variation 14.7 % (11.5-14.5) Immature Granulocyte % (Auto) 0.7 % Immature Granulocyte # (Auto) 0.09 K/uL (0.00-0.02) Prothrombin Time 10.7 SECONDS (9.0-12.0) Prothromb Time International Ratio 1.0 (0.9-1.1) Activated Partial Thromboplast Time 21.3 SECONDS (21.0-31.0) Partial Thromboplastin Ratio 0.8 Anion Gap 11.0 mmol/L (3-11) Est Creatinine Clear Calc Drug Dose 59.0 ml/min Estimated GFR () 56.6 Estimated GFR (Non- 48.9 BUN/Creatinine Ratio 16.8 (10-20) Calcium Level 7.6 mg/dl (8.5-10.1) Total Bilirubin 0.2 mg/dl (0.2-1) Direct Bilirubin mg/dl (0-0.2) Aspartate Amino Transf (AST/SGOT) 9 U/L (15-37) Alanine Aminotransferase (ALT/SGPT) 22 U/L (12-78) Alkaline Phosphatase 88 U/L (45-117) Total Creatine Kinase 31 U/L (26-192) Creatine Kinase MB 1.1 ng/ml (0.5-3.6) Creatine Kinase MB Ratio 3.5 (0-3.0) Troponin I < 0.015 ng/ml (0-0.045) Total Protein 6.0 gm/dl (6.4-8.2) Albumin 3.1 gm/dl (3.4-5.0) Chemistry Specimen Hemolysis Laboratory results as stated above per my review. ECG Per My Interpretation Indication: SOB/dyspnea Rate (beats per minute): 113 Rhythm: atrial fibrillation Findings: LBBB, no acute ischemic change, no ectopy ED Course 1227: The patient was evaluated by the attending medical student at this time. 1238: Previous medical records were reviewed. The patient was evaluated in room C10. A complete history and physical examination was performed. 1358: On reevaluation, the patient is resting in bed. I discussed the results and findings with the patient. She verbalized agreement of the treatment plan. The patient was discharged home. Medical Decision the differential was considered includes acute myocardial infarction, acute coronary syndrome, myocarditis, pericarditis, pericardial effusions /tamponad, esophageal perforation, pulmonary embolism, pneumonia, pneumothorax, cardiomyopathy, congestive heart, anemia , COPD/asthma exacerbation. This is a 67-year-old female who presents to the ED with a chief complaint of cough and weakness. The patient has a history of COPD and uses 3 L of oxygen at home. Patient also reports a history of atrial fibrillation and uses Eliquis. The patient states that she had some numbness or tingling in her left hand this morning. This has resolved. The patient was primarily concerned about a heart attack and her heart rate as she tried to take her blood pressure and states that her heart seemed to be erratic. Her cough is nonproductive. She states that she also did not sleep well last night. Her initial blood pressure was elevated. Her physical exam was unremarkable. EKG shows A. fib at a rate of 113 with a left bundle branch block pattern. No acute injuries. CBC and complete metabolic panel were unremarkable and a troponin was negative. Chest x-ray did not show pneumonia or other acute abnormality. The patient was told the results of the test. She did receive a DuoNeb treatment in route here. She is felt to be stable for discharge and outpatient follow-up. Blood Pressure Screening Patient's blood pressure: Elevated blood pressure Blood pressure disposition: Referred to PCP Impression Primary Impression: Weakness Additional Impression: Paresthesia of left arm Scribe Attestation The scribe's documentation has been prepared under my direction and personally reviewed by me in its entirety. I confirm that the note above accurately reflects all work, treatment, procedures, and medical decision making performed by me. Departure Information Dispostion Home / Self-Care Referrals Aleyda Bhatti MD (PCP) Patient Instructions My [facility] Additional Instructions Follow-up with your doctor for further care and evaluation in 1-2 days. Return to the emergency department for worsening or new symptoms or any concerns. You have been examined and treated today on an emergency basis only. This is not a substitute for, or an effort to provide, complete comprehensive medical care. It is impossible to recognize and treat all injuries or illnesses in a single emergency department visit. It is therefore important that you follow up closely with your doctor. Call as soon as possible for an appointment. Problem Qualifiers
[2017-11-24 14:07] VITALS: BP 145/71; PULSE 93; O2SAT 99
== END 2017-11-24 14:40 | disposition home or self-care (01) ==
LOC: EDBD 12:16 → C.EDC 12:17
DX: R53.1 Weakness (principal); R20.2 Paresthesia of skin; J44.9 Chronic obstructive pulmonary disease, unspecified; Z99.81 Dependence on supplemental oxygen; I48.0 Paroxysmal atrial fibrillation; Z79.01 Long term (current) use of anticoagulants; I44.7 Left bundle-branch block, unspecified; F32.9 Major depressive disorder, single episode, unspecified; Z83.6 Family history of other diseases of the respiratory system; Z82.49 Family history of ischemic heart disease and other diseases of the circulatory system; Z88.0 Allergy status to penicillin

== ENCOUNTER 2018-03-29 17:05 | Inpatient (IN) ==
[2018-03-29] MEDS ORDERED: SODIUM CHLORIDE 0.9% 500 ML IV SCH (17:45)
--- NOTE | 2018-03-29 17:59 | CT Scan Report ---
CT head/brain wo con CLINICAL HISTORY: 67 years-old Female presenting with dizzy, ataxic. TECHNIQUE: Multidetector CT imaging of the head was performed without the use of intravenous contrast . IV contrast: None. A dose lowering technique was used consistent with the principles of ALARA (as l ow as reasonably achievable). COMPARISON: 02/27/2017. CT DOSE (mGy.cm): The estimated cumulative dose is 614.27 mGy.cm. FINDINGS: Motion Picture Cameraman topogram: Unremarkable. Ventricles and sulci normal in size. No hemorrhage. Brain parenchyma normal in appearance with preser derrell love-white differentiation. No acute territorial infarct. No mass effect or midline shift. No ext ra-axial fluid collection. Paranasal sinuses and mastoid air cells clear. Calvarium intact. IMPRESSION: 1. No acute intracranial abnormality. Electronically signed by: Denzel Weller M.D. 03/29/2018 5:58 PM
[2018-03-29 18:19] LABS: Basophils # (auto) 0.01 K/uL (0-0.2); Basophils % (auto) 0.1 %; Eosinophils # (auto) 0.06 K/uL (0-0.5); Eosinophils % (auto) 0.6 %; Hematocrit (blood only) 42.9 % (37-47); Hemoglobin 13.3 g/dL (12.0-16.0); Immature Granulocytes # (auto) 0.03 K/uL (0.00-0.02); Immature Granulocytes % (auto) 0.3 %; Lymphocytes % (auto) 5.6 %; Mean Platelet Volume 9.8 fL (7.4-10.4); Monocytes # (auto) 0.67 K/uL (0.11-0.59); Monocytes % (auto) 6.2 %; Neutrophils # (auto) 9.38 K/uL (1.4-6.5); Neutrophils % (auto) 87.2 %; Platelet Count 190 K/uL (130-400); RDW Coefficient of Variation 16.2 % (11.5-14.5); RDW Standard Deviation 50.2 fL (36.4-46.3); Red Blood Count 4.93 M/uL (4.2-5.4); White Blood Count 10.75 K/uL (4.8-10.8)
[2018-03-29 18:30] LABS: INR 2.5 (0.9-1.1); Partial Thromboplastin Ratio 1.3; Partial Thromboplastin Time 34.3 Seconds (21.0-31.0); Prothrombin Time 24.4 Seconds (9.0-12.0)
--- NOTE | 2018-03-29 18:33 | XRay Report ---
XR chest 1V portable CLINICAL HISTORY: 67 years-old Female presenting with dizziness. TECHNIQUE: Portable upright AP view of the chest was obtained. COMPARISON: 11/24/2017. FINDINGS: Atherosclerosis of the aortic arch. Cardiac silhouette mildly enlarged. Mild pulmonary vascular promi nence. Slight heterogeneity of lung parenchyma. No focal opacity. No large effusion or pneumothorax. Osseous structures normal. Upper abdomen normal. IMPRESSION: 1. Cardiomegaly with possible mild volume overload. No other convincing evidence of acute cardiopulm onary disease. Electronically signed by: Denzel Weller M.D. 03/29/2018 6:31 PM
[2018-03-29 18:35] LABS: Alanine Aminotransferase 22 U/L (12-78); Albumin Level 3.5 gm/dl (3.4-5.0); Aspartate Aminotransferase 8 U/L (15-37); BUN Creatinine Ratio 24.1 (10-20); Blood Urea Nitrogen 24 mg/dl (7-18); Calcium 8.7 mg/dl (8.5-10.1); Carbon Dioxide 30 mmol/L (21-32); Chloride 100 mmol/L (98-107); Est GFR (African American) 68.7; Est GFR (Non-African American) 59.3; Glucose 113 mg/dl (70-99); Magnesium 2.2 mg/dl (1.8-2.4); Potassium 3.5 mmol/L (3.5-5.1); Sodium 137 mmol/L (136-145)
[2018-03-29 18:46] LABS: Alkaline Phosphatase 129 U/L (45-117); Bilirubin,Total 0.4 mg/dl (0.2-1); Globulin 3.4 gm/dl (2.5-4.0); Total Protein 6.9 gm/dl (6.4-8.2); Troponin I < 0.015 ng/ml (0-0.045)
--- NOTE | 2018-03-29 20:50 | Emergency Department Note ---
Entered by Monalisa Nelson acting as a scribe for Noam Farfan M.D. History of Present Illness General Chief complaint: Vertigo Stated complaint: VERTIGO Time Seen by Provider: 03/29/18 17:34 Source: patient History of Present Illness Onset (ago): hour(s) 10 Location: head (Vertigo) Severity: severe and similar to prior episodes Pain Consistency: + other (Persistent) Quality: + other (Vertigo) Relieved By: + rest Exacerbated By: + other (Closing eyes) Associated symptoms: + diaphoresis, + nausea/vomiting (Positive nausea. Negative vomiting. ) and + weakness; no chest pain, no headaches, no loss of appetite, no shortness of breath and no other (Slurred speech, abdominal pain, falls) The patient is a 67 year old female who presents to the Emergency Room with complaints of persistent vertigo starting 10 hours ago. The patient reports that she woke up this morning and was severely dizzy. She states that she is nauseous, diaphoretic and feels very weak. She notes that when she closes her eyes her dizziness worsens. The patient adds that she normally uses supplemental oxygen and takes blood thinners. She denies headache, shortness of breath, falls, chest pain, abdominal pain, loss of appetite and slurred speech. Home Medications Home Medications Medication Instructions Recorded Confirmed Type albuterol sulfate [Ventolin HFA] 2 puff INHALATION Q4H PRN 03/29/18 03/29/18 History calcium carbonate-vitamin D3 1 tab PO BID 03/29/18 03/29/18 History [Calcium 600 + D(3)] clobetasol [Temovate] 1 applic TOPICAL BID PRN 03/29/18 03/29/18 History desonide 1 applic TOPICAL BID PRN 03/29/18 03/29/18 History digoxin 0.125 mg PO DAILY 03/29/18 03/29/18 History diltiazem HCl 420 mg PO DAILY 03/29/18 03/29/18 History doxycycline hyclate 100 mg PO UD 03/29/18 03/29/18 History fluocinonide 1 applic TOPICAL DAILY PRN 03/29/18 03/29/18 History fluticasone-salmeterol [Advair 1 inh INHALATION BID 03/29/18 03/29/18 History Diskus] hydrocortisone valerate 1 applic TOPICAL BID 03/29/18 03/29/18 History ipratropium-albuterol 1 vial INHALATION QID PRN 03/29/18 03/29/18 History lorazepam [Ativan] 0.5 mg PO DAILY PRN 03/29/18 03/29/18 History lorazepam [Ativan] 1 mg PO HS PRN 03/29/18 03/29/18 History magnesium oxide 400 mg PO BID 03/29/18 03/29/18 History meloxicam 7.5 mg PO DAILY 03/29/18 03/29/18 History multivitamin 1 tab PO DAILY 03/29/18 03/29/18 History oxycodone-acetaminophen 1 tab PO Q4H PRN 03/29/18 03/29/18 History pantoprazole [Protonix] 40 mg PO DAILY 03/29/18 03/29/18 History potassium chloride 20 meq PO HS 03/29/18 03/29/18 History potassium chloride 30 meq PO QAM 03/29/18 03/29/18 History prednisone 10 mg PO UD 03/29/18 03/29/18 History sertraline 100 mg PO DAILY 03/29/18 03/29/18 History tiotropium bromide [Spiriva with 1 cap INHALATION DAILY 03/29/18 03/29/18 History HandiHaler] tramadol 50 mg PO Q6H PRN 03/29/18 03/29/18 History triamcinolone acetonide 1 applic TOPICAL DAILY PRN 03/29/18 03/29/18 History triamterene-hydrochlorothiazid 0.5 tab PO DAILY 03/29/18 03/29/18 History [Maxzide] warfarin 2.5 mg PO MOWEFR@1600 03/29/18 03/29/18 History warfarin 5 mg PO SUTUTHSA@1600 03/29/18 03/29/18 History Allergies Allergy/AdvReac Type Severity Reaction Status Date / Time Penicillins Allergy Severe SWELLING Verified 03/29/18 19:35 OF TONGUE AND THROAT Past Med/Surg History Medical History COPD (chronic obstructive pulmonary disease) (Chronic) "very severe" Chronic respiratory failure (Chronic) Raynauds syndrome (Chronic) Depression (Chronic) Psoriasis (Chronic) Paroxysmal atrial fibrillation (Chronic) PFO (patent foramen ovale) (Chronic) "with embolism to L hand" Surgical History History of hysterectomy (Chronic) H/O foot surgery (Chronic) S/P T&A (status post tonsillectomy and adenoidectomy) (Chronic) Social History Feels Safe at Home: Yes Smoking Status: Former smoker Preferred Language: Ukrainian Review of Systems See HPI for pertinent positives & negatives. and A total of 10 systems reviewed and were otherwise negative Physical Exam Vital Signs Vital Signs - 24 hr 03/29/18 17:28 03/29/18 17:35 03/29/18 17:58 Temperature 36.8 C Temperature Source Oral Sepsis Recent Fever Within 48 Hours No Sepsis New/Unexplained Change in Mental Status No Sepsis Action Taken by Nursing No Action Required Pulse Rate 83 78 Pulse Rate [Right Finger] 71 Pulse Rhythm Regular Respiratory Rate 18 18 20 Respiratory Effort / Characteristics Non-Labored Spontaneous Respiratory Depth Normal Normal Respiratory Pattern Regular Blood Pressure 114/74 Blood Pressure [Left Arm] 146/77 H Blood Pressure Mean 87 Blood Pressure Mean [Left Arm] 100 Pulse Oximetry 98 97 97 Oxygen Delivery Method Nasal Cannula Nasal Cannula Room Air Oxygen Flow Rate 3 3 03/29/18 19:00 03/29/18 19:01 03/29/18 19:30 Temperature Temperature Source Sepsis Recent Fever Within 48 Hours Sepsis New/Unexplained Change in Mental Status Sepsis Action Taken by Nursing Pulse Rate 75 70 69 Pulse Rate [Right Finger] Pulse Rhythm Respiratory Rate 18 21 19 Respiratory Effort / Characteristics Respiratory Depth Respiratory Pattern Blood Pressure 141/74 H Blood Pressure [Left Arm] Blood Pressure Mean 96 Blood Pressure Mean [Left Arm] Pulse Oximetry 96 99 99 Oxygen Delivery Method Oxygen Flow Rate 03/29/18 19:31 03/29/18 19:32 03/29/18 20:00 Temperature Temperature Source Sepsis Recent Fever Within 48 Hours Sepsis New/Unexplained Change in Mental Status Sepsis Action Taken by Nursing Pulse Rate 73 71 85 Pulse Rate [Right Finger] Pulse Rhythm Respiratory Rate 20 16 23 Respiratory Effort / Characteristics Respiratory Depth Respiratory Pattern Blood Pressure 161/82 H Blood Pressure [Left Arm] Blood Pressure Mean 108 Blood Pressure Mean [Left Arm] Pulse Oximetry 98 99 Oxygen Delivery Method Oxygen Flow Rate 03/29/18 20:30 Temperature Temperature Source Sepsis Recent Fever Within 48 Hours Sepsis New/Unexplained Change in Mental Status Sepsis Action Taken by Nursing Pulse Rate 82 Pulse Rate [Right Finger] Pulse Rhythm Respiratory Rate 16 Respiratory Effort / Characteristics Respiratory Depth Respiratory Pattern Blood Pressure Blood Pressure [Left Arm] Blood Pressure Mean Blood Pressure Mean [Left Arm] Pulse Oximetry Oxygen Delivery Method Oxygen Flow Rate GENERAL: Awake, alert, well-appearing, in no distress HENT: Normocephalic, atraumatic. Oropharynx unremarkable. EYES: Normal conjunctiva. Sclera non-icteric. PERRL. NECK: Supple. No nuchal rigidity. RESPIRATORY: Clear to auscultation. No wheezes. Normal respiratory effort. CARDIAC: Normal rate. Normal rhythm. Extremities warm and well perfused. GI: Soft, non-distended. No tenderness to palpation. No rebound or guarding. RECTAL: Deferred. MUSCULOSKELETAL: Atraumatic. Chest examination reveals no tenderness. LOWER EXTREMITIES: Calves are equal size bilaterally and non-tender. No edema NEURO: No facial droop. Significant upper extremity ataxia, slight left pronator drift, 1/5 strength of LLE, 5/5 strength of RLE. SKIN: Warm and dry. No rash or jaundice noted. Course 1738: Past medical records reviewed. The patient was evaluated in room A4B, and a complete history and physical examination were performed. 1856: I reviewed the patient's case with Nedra Manzano PA-C hospitalist. She will evaluate the patient for further management. Administered Medications Discontinued Medications Sodium Chloride (Nss) 500 mls @ 999 mls/hr IV .Q31M TERRANCE Stop: 03/29/18 18:15 Last Infusion: 03/29/18 19:09 Dose: 0 mls/hr Admin: 03/29/18 18:38 Dose: 999 mls/hr Medical Decision Making Differential Diagnosis Differential diagnosis: Etiologies such as metabolic, infection, hypoglycemia, electrolyte abnormalities, cardiac sources, intracerebral event, toxicologic, neurologic, as well as others were entertained. Medical Records Attestation: I reviewed the patient's medical records. Home Medications Current Medication List: was personally reviewed by me Laboratory Data Attestation: I reviewed the patient's lab results. Result diagrams: 03/29/18 18:08 03/29/18 18:08 Lab Results 12/03/29/18 03/29/18 Range/Units 18:08 18:08 18:08 WBC 10.75 (4.8-10.8) K/uL RBC 4.93 (4.2-5.4) M/uL Hgb 13.3 (12.0-16.0) g/dL Hct 42.9 (37-47) % MCV 87.0 (80-100) fL MCH 27.0 (25-34) pg MCHC 31.0 L (32-36) g/dL RDW Std Deviation 50.2 H (36.4-46.3) fL RDW Coeff of Daniela 16.2 H (11.5-14.5) % Plt Count 190 (130-400) K/uL MPV 9.8 (7.4-10.4) fL Immature Gran % (Auto) 0.3 % Neut % (Auto) 87.2 % Lymph % (Auto) 5.6 % Dukes % (Auto) 6.2 % Eos % (Auto) 0.6 % Baso % (Auto) 0.1 % Immature Gran # (Auto) 0.03 H (0.00-0.02) K/uL Neut # (Auto) 9.38 H (1.4-6.5) K/uL Lymph # (Auto) 0.60 L (1.2-3.4) K/uL Dukes # (Auto) 0.67 H (0.11-0.59) K/uL Eos # (Auto) 0.06 (0-0.5) K/uL Baso # (Auto) 0.01 (0-0.2) K/uL PT 24.4 H (9.0-12.0) Seconds INR 2.5 H (0.9-1.1) APTT 34.3 H (21.0-31.0) Seconds PTT Ratio 1.3 Sodium 137 (136-145) mmol/L Potassium 3.5 (3.5-5.1) mmol/L Chloride 100 (98-107) mmol/L Carbon Dioxide 30 (21-32) mmol/L Anion Gap 6.0 (3-11) BUN 24 H (7-18) mg/dl Creatinine 0.98 (0.6-1.2) mg/dl Est Cr Clr Drug Dosing Not Reportable Est GFR ( Amer) 68.7 Est GFR (Non-Af Amer) 59.3 BUN/Creatinine Ratio 24.1 H (10-20) Glucose 113 H (70-99) mg/dl Calcium 8.7 (8.5-10.1) mg/dl Magnesium 2.2 (1.8-2.4) mg/dl Total Bilirubin 0.4 (0.2-1) mg/dl AST 8 L (15-37) U/L ALT 22 (12-78) U/L Alkaline Phosphatase 129 H (45-117) U/L Troponin I < 0.015 (0-0.045) ng/ml Total Protein 6.9 (6.4-8.2) gm/dl Albumin 3.5 (3.4-5.0) gm/dl Globulin 3.4 (2.5-4.0) gm/dl Albumin/Globulin Ratio 1.0 (0.9-2) TSH 1.370 (0.300-4.500) uIu/ml Digoxin (0.8-2.0) ng/ml 03/29/18 Range/Units 18:08 WBC (4.8-10.8) K/uL RBC (4.2-5.4) M/uL Hgb (12.0-16.0) g/dL Hct (37-47) % MCV (80-100) fL MCH (25-34) pg MCHC (32-36) g/dL RDW Std Deviation (36.4-46.3) fL RDW Coeff of Daniela (11.5-14.5) % Plt Count (130-400) K/uL MPV (7.4-10.4) fL Immature Gran % (Auto) % Neut % (Auto) % Lymph % (Auto) % Dukes % (Auto) % Eos % (Auto) % Baso % (Auto) % Immature Gran # (Auto) (0.00-0.02) K/uL Neut # (Auto) (1.4-6.5) K/uL Lymph # (Auto) (1.2-3.4) K/uL Dukes # (Auto) (0.11-0.59) K/uL Eos # (Auto) (0-0.5) K/uL Baso # (Auto) (0-0.2) K/uL PT (9.0-12.0) Seconds INR (0.9-1.1) APTT (21.0-31.0) Seconds PTT Ratio Sodium (136-145) mmol/L Potassium (3.5-5.1) mmol/L Chloride (98-107) mmol/L Carbon Dioxide (21-32) mmol/L Anion Gap (3-11) BUN (7-18) mg/dl Creatinine (0.6-1.2) mg/dl Est Cr Clr Drug Dosing Est GFR ( Amer) Est GFR (Non-Af Amer) BUN/Creatinine Ratio (10-20) Glucose (70-99) mg/dl Calcium (8.5-10.1) mg/dl Magnesium (1.8-2.4) mg/dl Total Bilirubin (0.2-1) mg/dl AST (15-37) U/L ALT (12-78) U/L Alkaline Phosphatase (45-117) U/L Troponin I (0-0.045) ng/ml Total Protein (6.4-8.2) gm/dl Albumin (3.4-5.0) gm/dl Globulin (2.5-4.0) gm/dl Albumin/Globulin Ratio (0.9-2) TSH (0.300-4.500) uIu/ml Digoxin 0.9 (0.8-2.0) ng/ml Imaging Data Radiologist's Impression: Radiology results as stated below per my review and the radiologist's interpretation: CT head/brain wo con CLINICAL HISTORY: 67 years-old Female presenting with dizzy, ataxic. TECHNIQUE: Multidetector CT imaging of the head was performed without the use of intravenous contrast. IV contrast: None. A dose lowering technique was used consistent with the principles of ALARA (as low as reasonably achievable). COMPARISON: 02/27/2017. CT DOSE (mGy.cm): The estimated cumulative dose is 614.27 mGy.cm. FINDINGS: Waste Machine Offbearer topogram: Unremarkable. Ventricles and sulci normal in size. No hemorrhage. Brain parenchyma normal in appearance with preserved love-white differentiation. No acute territorial infarct. No mass effect or midline shift. No extra-axial fluid collection. Paranasal sinuses and mastoid air cells clear. Calvarium intact. IMPRESSION: 1. No acute intracranial abnormality. Electronically signed by: Denzel Weller M.D. 03/29/2018 5:58 PM XR chest 1V portable CLINICAL HISTORY: 67 years-old Female presenting with dizziness. TECHNIQUE: Portable upright AP view of the chest was obtained. COMPARISON: 11/24/2017. FINDINGS: Atherosclerosis of the aortic arch. Cardiac silhouette mildly enlarged. Mild pulmonary vascular prominence. Slight heterogeneity of lung parenchyma. No focal opacity. No large effusion or pneumothorax. Osseous structures normal. Upper abdomen normal. IMPRESSION: 1. Cardiomegaly with possible mild volume overload. No other convincing evidence of acute cardiopulmonary disease. Electronically signed by: Denzel Weller M.D. 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 Is on coumadin as well as digoxin. Home health visited today and she woke with acute dizziness and ataxia today. Denies headache. Little bit nauseous at times today. 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 CT the head was completed without acute intracranial abnormality notable. Benign abdomen doubt intra-abdominal pathology. No leukocytosis or anemia noted. No evidence of acute kidney injury. Negative troponin. TSH within normal limits. Digoxin therapeutic. Urinalysis still pending at this time. I am concerned given the significant amount of ataxia that she says is fairly acute along with chronic regulation status for this patient to go home. Discussed with her feel that admission for further evaluation and likely brain MRI is warranted for central process explaining this. Not a TPA candidate 2/2 coumadin. Patient in agreement and discussed with the [facility] hospitalist team. Impression & Plan Dizziness, Ataxia Discharge Plan Visit Data Chief Complaint: Vertigo Stated Complaint: VERTIGO ED Provider: Noam Farfan Discharge Problem: Dizziness, Ataxia Patient Disposition: Being Evaluated by Hospitalist The scribe's documentation has been prepared under my direction and personally reviewed by me in its entirety. I confirm that the note above accurately reflects all work, treatment, procedures, and medical decision making performed by me.
--- NOTE | 2018-03-29 21:21 | History and Physical Report ---
DATE OF ADMISSION: 03/29/2018 CHIEF COMPLAINT: Vertigo and imbalance. HISTORY OF PRESENT ILLNESS: This is a 67-year-old female with past medical history significant for chronic obstructive pulmonary disease, chronic respiratory failure, on oxygen 24x7, history of patent foramen ovale, history of pneumothorax, psoriasis, Raynaud syndrome, multifocal atrial tachycardia, depression, chronic kidney stage III, history of tobacco abuse, history of multiple pulmonary nodules and a history of persistent atrial fibrillation who presents with vertigo and dizziness. The patient woke up with a feeling of room spinning, feeling dizzy and having imbalance while ambulating. [facility] visited her around 3pm and at that time on examination, she was found to have ataxia, vertigo and also on examination, she was also having a positive Romberg testing and abnormal finger nose test and she was emergently brought to the Emergency Department. CT of the head was done which was unremarkable. Currently, the patient states the spinning of the room is getting better. Initially, she also had some blurred vision, double vision when the [facility] doctor came and checked her, but that is getting better. She is resting comfortably and hemodynamically stable. Denies any headache. Denies any dizziness. No earache. No runny nose. No sore throat. No difficulty swallowing. Appetite is okay. No cough. No fever. No chills. She gets on and off sweating in the back of the head that has been going on for some time. No nausea. No abdominal pain. Normal bowel and bladder movements. No blood in the stools. No black stools. No burning micturition. No hematuria. No swelling of the legs. Before this, she was ambulating okay in house. She cannot climb stairs because of her chronic obstructive pulmonary disease and she is to use oxygen all the time. She lives alone and she states there is no family to check on her. ALLERGIES: PENICILLINS. PAST MEDICAL HISTORY: As mentioned above. PAST SURGICAL HISTORY: History of pneumothorax and chest tube placements, dental surgery, foot surgery, tonsillectomy and hysterectomy. MEDICATIONS: The patient is on Zoloft 100 mg p.o. daily, albuterol 2 puffs every 4 hours p.r.n., Advair Diskus 250/50 mcg 1 puff b.i.d., Spiriva 18 mcg inhalation daily, meloxicam 7.5 mg p.o. daily, tramadol 50 mg p.o. q. 6 hours p.r.n., Coumadin 5 mg by mouth once a day on Tuesdays, , Saturdays and Sundays and 2.5 mg rest of the days, diltiazem ER 420 mg p.o. daily, doxepin 100 mg rescue kit, potassium chloride 10 mEq 3 tablets in a.m. and 2 tablets in p.m., Roxicet 5/325 mg 1 tablet every 4 hours p.r.n., digoxin 125 mcg p.o. daily, prednisone rescue kit, Ativan 0.5 mg in a.m. and afternoon for anxiety and bedtime p.r.n. for sleep, magnesium oxide 400 mg p.o. b.i.d., Protonix 40 mg p.o. daily, triamterene/hydrochlorothiazide 75/50 mg half tablet p.o. daily, DuoNebs 1 vial every 4 hours p.r.n., triamcinolone 0.1% ointment applied topically b.i.d., desonide 0.05% cream to apply to psoriasis in the face and ears twice daily as needed for flares, fluocinonide 0.05% to scalp daily and 1-2 drops to each ear daily as needed for flares of psoriasis, oxygen 3-4 liters via nasal cannula 24x7, multivitamins 1 tablet daily and calcium plus vitamin D 1 tablet p.o. b.i.d. FAMILY HISTORY: Significant for mother had heart disorder and emphysema. Father of motor vehicle accident and also had emphysema. Grandfather on maternal had coronary artery disease. Grandmother on maternal had coronary artery disease. Sister has arthritis. SOCIAL HISTORY: Currently , lives alone. Former smoker, quit in 1996. Smoked 1 pack a day for 20 years. Alcohol, rare. No drug use. REVIEW OF SYMPTOMS: As per HPI. Rest of review of symptoms negative. PHYSICAL EXAMINATION: GENERAL: The patient is of moderate build, not in acute distress. VITAL SIGNS: Temperature 36.8, pulse 73, respiratory rate 20, blood pressure 161/82 and oxygen 98% on room air. HEENT: No pallor. No icterus. Pupils are equal, round and react to light. No nystagmus. NECK: No JVD. No carotid bruit. No neck masses. Supple. CARDIOVASCULAR: S1 and S2 heard. Regular rate and rhythm. No murmur. No gallop. RESPIRATORY SYSTEM: Normal AP diameter. No accessory muscle use. No wheezing. No crackles. ABDOMEN: Soft. Bowel sounds are present. Nontender. No distention. CENTRAL NERVOUS SYSTEM: Cranial nerves II through XII are grossly intact. Power 5/5 in all extremities. Sensation is intact. Finger to nose test normal. Coordination of movements normal. No pronator drift. The patient on standing, she felt dizzy and could not complete Rhomberg test. EXTREMITIES: No edema. No erythema. LABORATORY DATA: WBC 10.7, hemoglobin 13.3, hematocrit 42.9, platelets 290. PT 24.4, INR 2.5, APTT 34.3. Sodium 136, potassium 3.5, chloride 100, bicarbonate 30, BUN 24, creatinine 0.9, serum glucose 113, calcium 8.7, magnesium 2.2, total bilirubin 0.4, AST 8, ALT 22, alkaline phosphatase 129. Troponin I less than 0.015. TSH 1.37. Digoxin level 0.9. Chest x-ray, cardiomegaly with possible mild volume overload. CT of the head, no acute intracranial abnormality seen. Electrocardiogram, atrial fibrillation with rate of 71, incomplete left bundle-branch block, nonspecific ST abnormalities seen. ASSESSMENT AND PLAN: This is a 67-year-old female who presents with vertigo and imbalance. 1. Vertigo and imbalance, room spinning, initially at home when checked by [facility] home visit , she had positive finger to nose test and Rhomberg test and was also anxious. And patient was emergently brought to the hospital here. Initial workup was negative. Currently, she is resting comfortably. She states her symptoms of room spinning are getting better. Her blurred vision is getting better. CT head ok. Neurologic examination was okay only when she tried to stand up, again she was feeling dizzy. We will do full stroke workup with MRI/MRA of the head, carotid Doppler, echocardiogram. Physical Therapy, Occupational Therapy, Speech evaluation, and Neurology evaluation in a.m. We will empirically start on Lipitor. Follow fasting lipid profile. Monitor the blood pressure. We will also check orthostatics. Close monitoring on the tele floor. 2. History of atrial fibrillation, rate controlled on digoxin and Cardizem and INR therapeutic. Continue home dose Coumadin. 3. History of chronic obstructive pulmonary disease, chronic respiratory failure, on oxygen 3-4 liters 24x7. Continue home inhalers and nebs p.r.n. 4. Depression, continue sertraline. 5. Psoriasis. Continue home steroid creams as needed. 6. Anxiety and insomnia, Ativan as needed. 7. Atrial tachycardia, multifocal, on Cardizem currently stable. 8. History of some question of heart failure, we will follow the echocardiogram. 9. Mild elevated Alk phosphatase. Will follow repeat labs. 10.. Deep venous thrombosis prophylaxis, on Coumadin. INR is therapeutic. DISPOSITION: Close monitoring on the tele floor. Level 1 full code. Physical therapy and occupational therapy to help with discharge. Social service to help with discharge planning. DOMINICD
[2018-03-29] MEDS ORDERED: NITROGLYCERIN SL 0.4 MG/TAB TAB SL PRN (21:25)
[2018-03-29] MEDS ORDERED: FLUOCINONIDE 0.05% CR 15 GM TUBE EXT PRN (21:25)
[2018-03-29] MEDS ORDERED: LORazepam 0.5 MG TAB PO PRN (21:25)
[2018-03-29] MEDS ORDERED: ACETAMINOPHEN 325 MG TAB PO PRN (21:25)
[2018-03-29] MEDS ORDERED: LORazepam 1 MG TAB PO PRN (21:25)
[2018-03-29] MEDS ORDERED: ALBUTEROL HFA 8 GM INHALER INH PRN (21:25)
[2018-03-29] MEDS ORDERED: TRAMADOL HCL 50 MG TABLET PO PRN (21:25)
[2018-03-29] MEDS ORDERED: ALUMINUM/MAGNESIUM SUSP 30 ML UDC PO PRN (21:25)
[2018-03-29] MEDS ORDERED: ONDANSETRON INJ 2 MG/ML 2 ML VIAL IV PRN (21:25)
[2018-03-29] MEDS ORDERED: POLYETHYLENE (MIRALAX) 17 GM PACK PO PRN (21:25)
[2018-03-29] MEDS ORDERED: PHARMACIST DISCHARGE MED REC CONSULT PRN (21:25)
[2018-03-29] MEDS ORDERED: ALBUT/IPRATROP 3MG/0.5MG NEB 3 ML VIAL INH PRN (21:25)
[2018-03-29] MEDS ORDERED: CLOBETASOL PROPIONATE 0.05% OINT 15 GM TUBE EXT PRN (21:25)
[2018-03-29] MEDS ORDERED: DESONIDE CR 15 GM TUBE EXT PRN (21:25)
[2018-03-29] MEDS ORDERED: ASPIRIN 81 MG CHEW PO STA (22:14)
[2018-03-29] MEDS: FLUTICASONE/SALMETEROL 250/50 (ADVAIR) 14 PUFF/1 INHALER INH SCH (22:34)
[2018-03-29] MEDS: CALCIUM 600MG + VIT D 400 IU TAB PO SCH (22:34)
[2018-03-29] MEDS: POTASSIUM CHLORIDE 10 MEQ TABCR PO SCH (22:35)
[2018-03-29] MEDS: MAGNESIUM OXIDE 400 MG TAB PO SCH (22:35)
[2018-03-29] MEDS ORDERED: ASPIRIN 300 MG SUPP PR ONE (22:45)
[2018-03-29] MEDS ORDERED: GADOBUTROL 30ML VIAL IV PRN (23:55)
[2018-03-30] MEDS: HYDROCORTISONE VAL 0.2% CRM 15GM TUBE EXT SCH ×3 (00:44→21:10)
[2018-03-30 05:56] LABS: Basophils # (auto) 0.01 K/uL (0-0.2); Basophils % (auto) 0.1 %; Eosinophils # (auto) 0.07 K/uL (0-0.5); Eosinophils % (auto) 0.8 %; Hematocrit (blood only) 41.1 % (37-47); Hemoglobin 12.5 g/dL (12.0-16.0); Immature Granulocytes # (auto) 0.01 K/uL (0.00-0.02); Immature Granulocytes % (auto) 0.1 %; Lymphocytes # (auto) 0.59 K/uL (1.2-3.4); Lymphocytes % (auto) 6.5 %; Mean Corpuscular Hgb Conc 30.4 g/dL (32-36); Mean Corpuscular Volume 87.1 fL (80-100); Mean Platelet Volume 9.8 fL (7.4-10.4); Monocytes # (auto) 0.62 K/uL (0.11-0.59); Monocytes % (auto) 6.8 %; Neutrophils # (auto) 7.81 K/uL (1.4-6.5); Neutrophils % (auto) 85.7 %; Platelet Count 172 K/uL (130-400); RDW Standard Deviation 50.6 fL (36.4-46.3); Red Blood Count 4.72 M/uL (4.2-5.4); White Blood Count 9.11 K/uL (4.8-10.8)
[2018-03-30 06:10] LABS: INR 2.6 (0.9-1.1); Prothrombin Time 24.7 Seconds (9.0-12.0)
[2018-03-30 06:35] LABS: Albumin Level 3.1 gm/dl (3.4-5.0); BUN Creatinine Ratio 22.2 (10-20); Calcium 8.7 mg/dl (8.5-10.1); Creatinine Clr Calc Pharmacy 78.1 ml/min; Est GFR (African American) 77.2; Est GFR (Non-African American) 66.6; Potassium 3.5 mmol/L (3.5-5.1)
[2018-03-30 06:38] LABS: Bilirubin Direct 0.1 mg/dl (0-0.2); Bilirubin,Total 0.5 mg/dl (0.2-1); Total Protein 6.3 gm/dl (6.4-8.2)
[2018-03-30 06:58] LABS: Estimated Average Glucose 131 mg/dl
--- NOTE | 2018-03-30 08:45 | Ultrasound Report ---
CAROTID ARTERY ULTRASOUND CLINICAL HISTORY: stroke like symptoms COMPARISON STUDY: None. TECHNIQUE: Real-time, grayscale, and color Doppler sonography of the carotid and vertebral arteries w as performed. Images were viewed in the transverse and longitudinal planes. FINDINGS: There is mild atherosclerotic plaque. Velocity measurements are listed below. COMMON CAROTID PEAK SYSTOLIC VELOCITY (CM/S): RIGHT 114 LEFT 121 ICA PEAK SYSTOLIC VELOCITY (CM/S): RIGHT 65 LEFT 69 Systolic ratios between the internal to common carotid arteries are normal. Antegrade flow is seen in the vertebral arteries. The external carotid arteries are patent. Blood pressure in the right arm measured 133/79. Blood pressure in the left arm measured 151/77. IMPRESSION: No evidence for a hemodynamically significant stenosis. Electronically signed by: Markie Zhao M.D. 03/30/2018 8:44 AM
[2018-03-30] MEDS: FLUTICASONE/SALMETEROL 250/50 (ADVAIR) 14 PUFF/1 INHALER INH SCH ×2 (09:09→21:11)
[2018-03-30] MEDS: TIOTROPIUM BROMIDE 5 PUFF/90 MCG INH INH SCH (09:10)
--- NOTE | 2018-03-30 09:51 | Magnetic Resonance Report ---
MRA OF THE INTRACRANIAL CIRCULATION WITHOUT CONTRAST CLINICAL HISTORY: vertigo and imbalance COMPARISON STUDY: None. TECHNIQUE: Utilizing a 1.5 Jenise magnet and 3-D [id number] technique, unenhanced MRA of the intra cranial circulation was obtained. FINDINGS: This exam is mildly compromised by motion artifact. The bilateral M1, M2, A1 and A2 segment s are patent. There is no intracranial aneurysm. There is no severe stenosis. There is no abrupt vess el cut off. Posterior circulation is intact. IMPRESSION: 1. Unremarkable MRA of the intracranial circulation. 2. Study mildly compromised by artifact. Electronically signed by: Markie Zhao M.D. 03/30/2018 9:50 AM
--- NOTE | 2018-03-30 09:52 | Magnetic Resonance Report ---
MRI OF THE BRAIN WITHOUT AND WITH IV CONTRAST CLINICAL HISTORY: vertigo and imbalance COMPARISON STUDY: Head CT March 29, 2018. TECHNIQUE: Utilizing a 1.5 Jenise magnet and dedicated coil, multiplanar, multiecho imaging of the br ain was performed pre and postcontrast administration. IV administration of 10 mL of [address] contra st was uneventful. FINDINGS: There are no foci of restricted diffusion to suggest acute infarct. No acute intracranial h emorrhage, midline shift or mass effect is present. A possible tiny 6 mm meningioma overlying the lef t occipital lobe is noted on coronal T1 postcontrast image . Flow-voids for the major intracr anial vessels are present. A few white matter T2 hyperintense foci suggest mild small vessel disease. Exam is mildly compromised by motion artifact. There is no abnormality within the internal auditory canals on this nondedicated exam. Calvarial heterogeneity is likely within normal limits. IMPRESSION: 1. No acute intracranial findings. 2. Possible tiny 6 mm meningioma overlying the left occipital lobe. 3. Scattered white matter T2 hyperintense foci which likely reflect mild small vessel disease. Electronically signed by: Markie Zhao M.D. 03/30/2018 9:51 AM
[2018-03-30] MEDS ORDERED: dilTIAZem HCL 120 MG CAPCR PO SCH (10:00)
[2018-03-30] MEDS: dilTIAZem HCL 300 MG CAPCR PO SCH (11:43)
[2018-03-30] MEDS: CALCIUM 600MG + VIT D 400 IU TAB PO SCH ×2 (11:46→21:08)
[2018-03-30] MEDS: MULTIVITAMIN TAB PO SCH (11:46)
[2018-03-30] MEDS: MAGNESIUM OXIDE 400 MG TAB PO SCH ×2 (11:47→21:10)
[2018-03-30] MEDS: POTASSIUM CHLORIDE 10 MEQ TABCR PO SCH ×2 (11:47→21:07)
[2018-03-30] MEDS: ATORVASTATIN 40 MG TAB PO SCH (11:51)
[2018-03-30] MEDS: TRIAMTERENE/HCTZ 37.5/25MG TAB PO SCH (11:51)
[2018-03-30] MEDS: PANTOprazole 40 MG TAB PO SCH (11:53)
[2018-03-30] MEDS: SERTRALINE HCL 100 MG TABLET PO SCH (11:55)
[2018-03-30] MEDS: ASPIRIN 81 MG ECTAB PO SCH ×2 (11:56)
[2018-03-30 12:52] LABS: Folate (Folic Acid) 5.16 ng/ml (>5.38)
--- NOTE | 2018-03-30 13:01 | Progress Note ---
DATE: 03/30/2018 REASON FOR CONSULTATION: Dizziness. HISTORY OF PRESENT ILLNESS: The patient is a 67-year-old right-handed female with a past medical history of COPD, chronic respiratory failure on oxygen, history of PFO, pneumothorax, psoriasis, Raynaud's, multifocal atrial tachycardia, depression, chronic kidney disease, tobacco abuse, pulmonary nodules, persistent atrial fibrillation. The patient was in her usual state of health, woke up yesterday morning and put her legs at a bed, felt the room spin and she felt off balance. It lasted perhaps for 5 or 10 minutes. There was some accompanying nausea. There were no focal neurologic deficits such as diplopia, dysarthria, dysphagia, unilateral weakness or numbness. There were no otologic symptoms, pain, ringing, hearing loss, ear pressure. There were no headaches. This recurred multiple times over the course of about 24 hours, but has ultimately resolved. She has no prior history of vertigo. She has no history of transient ischemic attack. She has no family history of vertigo. She has otherwise been well. She has not had any head or neck injury, chiropractic manipulation in the neck, medical or dental procedures. She has noted some unexpected sweatiness over the last several days, but no mario fever. Her weight has been stable. None of her medications were new or changed in dose other than in October switching from Eliquis to Coumadin because of cost. PAST MEDICAL HISTORY: As above. No history of rheumatic fever, murmur. PAST SURGICAL HISTORY: Pneumothorax, chest tube, dental surgery, foot surgery, tonsillectomy, hysterectomy. No history of cancer. MEDICATIONS ON ADMISSION: Zoloft, albuterol, Advair, Spiriva, meloxicam, tramadol. ALLERGIES: PENICILLIN. REVIEW OF SYSTEMS: In addition to above, the patient has chronic instability. SOCIAL HISTORY: Former smoker, drinks 1 glass of alcohol every several days. FAMILY HISTORY: No vertigo. DATABASE: MRI of the brain shows no acute intracranial findings, possible 6 mm meningioma overlying the left occipital lobe. MRA of the head is unremarkable, slightly compromised by motion artifact. Carotid ultrasound, no significant stenosis. LABORATORY DATA: CBC normal. INR 2.6. Chemistry profile notable for BUN and creatinine of 20/0.89. Blood sugar 108. Electrocardiogram: Atrial fibrillation, incomplete left bundle-branch block, ventricular rate of 71. PHYSICAL EXAMINATION: VITAL SIGNS: On admission, the patient is afebrile, pulse 70, respirations 21, 141/74. GENERAL: The patient is awake and alert There is normal speech and language. Her affect is appropriate. No carotid bruits are noted. HEART: No heart murmurs are appreciable. NECK: Supple. NEUROLOGIC: Her pupils are equal. Optic nerves are difficult to visualize. There are normal schultz, motility without nystagmus. Normal facial sensation and facial symmetry. Tongue is midline. Dong lateralizes to the left ear. Gross hearing is intact. Air conduction is greater than bone conduction. There is full strength, no drift. Normal rapid alternating movements. Vzcltj-pr-foco and sztv-ts-tnbu are normal. There is no dysdiadochokinesia. Reflexes are diminished in the lower vibration present only at the ankles. Her gait with a walker is steady. She has a positive Romberg. Negative provocative head maneuvers. IMPRESSION: Probable benign paroxysmal positional vertigo given the positional nature, lack of other neurologic symptoms. PLAN: Monitor, meclizine could be used on a p.r.n. basis. If it were to be persistent, we could try to determine which ear and therefore then the patient have an Adán maneuver. The patient has some minor signs of neuropathy on exam, labs for treatable etiologies are reasonable. One wonders whether alcohol could be playing a component in that, I would recommend checking orthostatics and regarding the tiny meningioma, followup MRI should be performed in 1 year. The patient should see us in followup.
--- NOTE | 2018-03-30 15:06 | Hospitalist Progress Note ---
Date of Service March 30, 2018 Assessment & Plan (1) Vertigo: Dizziness intermittent throughout the day yesterday concerning for stroke- like symptoms as this persisted overnight. She presented to the ER outside of the window for TPA. CT head was performed and normal, carotid ultrasound revealed no hemodynamically significant atherosclerotic plaque, MRI and MRI of the brain were within normal limits aside from some possible small vessel disease and a 6 mm meningioma. Neurology was consulted and feels the presentation is consistent with BPPV. As part of her stroke workup she underwent an echocardiogram. No significant change from prior echocardiogram in June 2017. Some minor peripheral neuropathy was noted on exam per neurology. Will order B12, folate, iron studies and vitamin D to ensure no reversible causes. For now her vertigo is resolved, however, if this were to continue will proceed with meclizine as needed, or utilize vertigo clinic for Adán maneuver if persistent. Speech pathology has evaluated and cleared her. Awaiting PT/OT evaluations and then will set up discharge. (2) COPD (chronic obstructive pulmonary disease): Chronic hypoxemia on baseline supplemental oxygen. COPD is stable, no shortness of breath or coughing issues. No increased sputum production or changes in sputum. Continue supplemental oxygen and home inhaler therapy (3) Persistent atrial fibrillation: Rate controlled. Continue home therapy with digoxin 0.125 mg p.o. daily, diltiazem 420 mg p.o. daily. She is anticoagulated on warfarin and INR is therapeutic. Continue to monitor INR daily. (4) DVT prophylaxis: Coumadin Full code Disposition-likely to home tomorrow, but awaiting PT/OT evaluation formally. Dominga Castellanos DO [facility] Hospitalist Subjective 67-year-old female without history of cerebrovascular disease that is known presents with vertigo times 1 day. Vertigo episodes were intermittent throughout the day yesterday and were related to positioning. Patient also reported some blurred vision but denied any headache and reports the blurriness has resolved as well as the vertigo today. She has a history of atrial fibrillation but denies any palpitations and she denies any chest pain or trouble breathing. She was walking around with a walker yesterday and states that she has disequilibrium at baseline. She denies any nausea, vomiting, diarrhea. She did reported eating and drinking well. Her only medication changes were involved Eliquis which switched to Coumadin in October. She denies any recent URI symptoms and reports a chronic cough related to history of smoking without any sputum changes or production. She is chronically on oxygen in the setting of COPD. Physical Exam 2 Vital Signs (Past 24 Hours): Last Vital Signs Temp 37.3 C 03/30/18 12:00 Pulse 86 03/30/18 12:00 Resp 18 03/30/18 12:00 BP 141/79 H 03/30/18 12:00 Pulse Ox 98 03/30/18 12:00 CONSTITUTIONAL: WNWD, vitals as above, generally well-appearing EYES: EOMI bilaterally, PERRL, normal conjuctivae, no scleral icterus ENT: MMM NECK: trachea midline RESPIRATORY: clear to auscultation bilaterally, no crackles, rales or wheezes, normal respiratory effort CARDIOVASCULAR: regular rate and rhythm, S1 and 2 heard without murmurs, gallops or rubs, no JVD, no peripheral edema GASTROINTESTINAL: normal bowel sounds, soft, nontender, nondistended MUSCULOSKELETAL: strength 5/5 throughout, head is normocephalic and atraumatic , SKIN: warm and dry NEUROLOGIC: Difficult to elicit reflexes secondary to patient resistance/ positioning. PERRL, EOMI, no facial palsy, no dysarthria. CN 2-12 grossly intact, no gross sensory deficit, normal cognition, normal speech PSYCHIATRIC: alert cooperative and oriented to person, place and time. Euthymic mood, makes good eye contact, language grossly intact Results & Data Laboratory Results Short CBC 03/29/18 03/30/18 Range/Units 18:08 05:44 WBC 10.75 9.11 (4.8-10.8) K/uL Hgb 13.3 12.5 (12.0-16.0) g/dL Hct 42.9 41.1 (37-47) % Plt Count 190 172 (130-400) K/uL BMP 03/29/18 03/30/18 18:08 05:44 Sodium 137 139 Potassium 3.5 3.5 Chloride 100 102 Carbon Dioxide 30 31 BUN 24 H 20 H Creatinine 0.98 0.89 Glucose 113 H 108 H Calcium 8.7 8.7 Cardiac Enzymes 03/29/18 Range/Units 18:08 Troponin I < 0.015 (0-0.045) ng/ml Liver Function 03/29/18 03/30/18 Range/Units 18:08 05:44 Total Bilirubin 0.4 0.5 (0.2-1) mg/dl Direct Bilirubin 0.1 (0-0.2) mg/dl AST 8 L 5 L (15-37) U/L ALT 22 18 (12-78) U/L Alkaline Phosphatase 129 H 111 (45-117) U/L Albumin 3.5 3.1 L (3.4-5.0) gm/dl Diagnostic Findings MRA OF THE INTRACRANIAL CIRCULATION WITHOUT CONTRAST CLINICAL HISTORY: vertigo and imbalance COMPARISON STUDY: None. TECHNIQUE: Utilizing a 1.5 Jenise magnet and 3-D [id number] technique, unenhanced MRA of the intracranial circulation was obtained. FINDINGS: This exam is mildly compromised by motion artifact. The bilateral M1, M2, A1 and A2 segments are patent. There is no intracranial aneurysm. There is no severe stenosis. There is no abrupt vessel cut off. Posterior circulation is intact. IMPRESSION: 1. Unremarkable MRA of the intracranial circulation. 2. Study mildly compromised by artifact. MRI OF THE BRAIN WITHOUT AND WITH IV CONTRAST CLINICAL HISTORY: vertigo and imbalance COMPARISON STUDY: Head CT March 29, 2018. TECHNIQUE: Utilizing a 1.5 Jenise magnet and dedicated coil, multiplanar, multiecho imaging of the brain was performed pre and postcontrast administration. IV administration of 10 mL of Gadavist contrast was uneventful. FINDINGS: There are no foci of restricted diffusion to suggest acute infarct. No acute intracranial hemorrhage, midline shift or mass effect is present. A possible tiny 6 mm meningioma overlying the left occipital lobe is noted on coronal T1 postcontrast image . Flow-voids for the major intracranial vessels are present. A few white matter T2 hyperintense foci suggest mild small vessel disease. Exam is mildly compromised by motion artifact. There is no abnormality within the internal auditory canals on this nondedicated exam. Calvarial heterogeneity is likely within normal limits. IMPRESSION: 1. No acute intracranial findings. 2. Possible tiny 6 mm meningioma overlying the left occipital lobe. 3. Scattered white matter T2 hyperintense foci which likely reflect mild small vessel disease. Carotid Doppler: IMPRESSION: No evidence for a hemodynamically significant stenosis. Medications Administered Current Inpatient Medications Acetaminophen (Tylenol) 650 mg PO Q4H PRN PRN Reason: Pain or Fever Stop: 04/28/18 21:24 Al Hydrox/Mg Hydrox/Simethicone (Maalox) 15 ml PO Q4H PRN PRN Reason: Dyspepsia Stop: 04/28/18 21:24 Albuterol (Duoneb) 3 ml INH QID PRN PRN Reason: Shortness Of Breath Or Wheezin Stop: 04/28/18 21:24 Albuterol (Ventolin Hfa) 2 puffs INH Q4H PRN PRN Reason: Shortness Of Breath Or Wheezin Stop: 04/28/18 21:24 Aspirin (Ecotrin) 81 mg PO QAM [facility] Stop: 04/29/18 08:59 Last Admin: 03/30/18 11:56 Dose: 81 mg Aspirin (Ecotrin) 81 mg PO QAM [facility] Stop: 04/29/18 08:59 Last Admin: 03/30/18 11:56 Dose: Not Given Atorvastatin Calcium (Lipitor) 40 mg PO QAM [facility] Stop: 04/29/18 08:59 Last Admin: 03/30/18 11:51 Dose: 40 mg Clobetasol Propionate (Clobetasol Propionate Oint) 1 appln EXT BID PRN PRN Reason: Rash Desonide (Desowen 0.05%) 1 appln EXT BID PRN PRN Reason: Rash Stop: 04/28/18 21:24 Digoxin (Lanoxin) 0.125 mg PO DAILY@1600 [facility] Stop: 04/29/18 15:59 Diltiazem HCl (Cardizem Cd) 300 mg PO DAILY [facility] Stop: 04/29/18 08:59 Last Admin: 03/30/18 11:43 Dose: 300 mg Diltiazem HCl (Cardizem Cd) 120 mg PO DAILY [facility] Stop: 04/30/18 08:59 Fluocinonide (Lidex 0.5%) 1 appln EXT DAILY PRN PRN Reason: Itching Gadobutrol (Gadavist 30ml) 10 ml IV ONCE PRN PRN Reason: Interaction Checking Stop: 04/02/18 23:54 Last Admin: 03/29/18 23:40 Dose: 10 ml Hydrocortisone Valerate (Westcort 0.2%) 1 appln EXT BID [facility] Stop: 04/28/18 21:24 Last Admin: 03/30/18 09:11 Dose: Not Given Lorazepam (Ativan) 0.5 mg PO DAILY PRN PRN Reason: Anxiety Stop: 04/28/18 21:24 Lorazepam (Ativan) 1 mg PO HS PRN PRN Reason: Insomnia Stop: 04/28/18 21:24 Magnesium Oxide (Mag-Ox) 400 mg PO BID [facility] Stop: 04/28/18 21:24 Last Admin: 03/30/18 11:47 Dose: 400 mg Miscellaneous Information (Pharmacist Discharge Med Rec Consult) 1 ea N/A UD PRN PRN Reason: Consult Stop: 04/28/18 21:24 Multivitamins (Multivitamin) 1 tab PO DAILY [facility] Stop: 04/29/18 08:59 Last Admin: 03/30/18 11:46 Dose: 1 tab Multivitamins/Minerals (Caltrate Plus) 1 tab PO BID [facility] Stop: 04/28/18 21:24 Last Admin: 03/30/18 11:46 Dose: 1 tab Nitroglycerin (Nitrostat) 0.4 mg SL UD PRN PRN Reason: Chest Pain Stop: 04/28/18 21:24 Ondansetron HCl (Zofran) 4 mg IV Q6H PRN PRN Reason: Nausea Stop: 04/28/18 21:24 Oxycodone/Acetaminophen (Percocet 5mg/325mg) 1 tab PO Q4H PRN PRN Reason: pain Stop: 04/12/18 21:24 Pantoprazole Sodium (Protonix) 40 mg PO DAILY [facility] Stop: 04/29/18 08:59 Last Admin: 03/30/18 11:53 Dose: 40 mg Polyethylene Glycol (Miralax Powder Packet) 17 gm PO DAILY PRN PRN Reason: Constipation Stop: 04/28/18 21:24 Potassium Chloride (Klor-Con M10) 20 meq PO HS [facility] Stop: 04/28/18 21:24 Last Admin: 03/29/18 22:35 Dose: Not Given Potassium Chloride (Klor-Con M10) 30 meq PO QAM [facility] Stop: 04/29/18 08:59 Last Admin: 03/30/18 11:47 Dose: 30 meq Fluticasone/Salmeterol (Advair Diskus 250/50) 1 puffs INH BID [facility] Stop: 04/28/18 21:24 Last Admin: 03/30/18 09:09 Dose: 1 puffs Sertraline HCl (Zoloft) 100 mg PO DAILY [facility] Stop: 04/29/18 08:59 Last Admin: 03/30/18 11:55 Dose: 100 mg Tiotropium Embarrass (Spiriva) 1 puffs INH DAILY [facility] Stop: 04/29/18 08:59 Last Admin: 03/30/18 09:10 Dose: 1 puffs Tramadol HCl (Ultram) 50 mg PO Q6H PRN PRN Reason: Pain Stop: 04/28/18 21:24 Triamterene/HCTZ (Maxzide 37.5/25mg) 0.5 tab PO DAILY [facility] Stop: 04/29/18 08:59 Last Admin: 03/30/18 11:51 Dose: 0.5 tab Warfarin Sodium (Coumadin) 5 mg PO SUTUTHSA@1600 [facility] Stop: 04/29/18 15:59 Warfarin Sodium (Coumadin) 2.5 mg PO MOWEFR@1600 [facility] Stop: 04/30/18 15:59
[2018-03-30] MEDS ORDERED: WARFARIN SOD 5 MG TAB PO SCH (16:00)
[2018-03-30 16:24] LABS: Ferritin 39.3 ng/ml (8-388)
[2018-03-30] MEDS: DIGOXIN 0.125 MG TAB PO SCH (16:42)
[2018-03-30] MEDS: OXYCODONE/ACETAMINOPHEN 5mg/325mg TAB PO PRN (19:25)
[2018-03-31] MEDS: OXYCODONE/ACETAMINOPHEN 5mg/325mg TAB PO PRN ×2 (01:58→12:32)
[2018-03-31 06:52] LABS: INR 2.4 (0.9-1.1); Prothrombin Time 23.4 Seconds (9.0-12.0)
[2018-03-31 07:09] LABS: BUN Creatinine Ratio 25.9 (10-20); Calcium 8.6 mg/dl (8.5-10.1); Creatinine Clr Calc Pharmacy 67.2 ml/min; Est GFR (African American) 66.2; Est GFR (Non-African American) 57.2; Potassium 3.9 mmol/L (3.5-5.1)
[2018-03-31 07:51] LABS: Basophils # (auto) 0.02 K/uL (0-0.2); Basophils % (auto) 0.3 %; Eosinophils # (auto) 0.07 K/uL (0-0.5); Eosinophils % (auto) 0.9 %; Hematocrit (blood only) 41.1 % (37-47); Hemoglobin 12.6 g/dL (12.0-16.0); Immature Granulocytes # (auto) 0.02 K/uL (0.00-0.02); Immature Granulocytes % (auto) 0.3 %; Lymphocytes % (auto) 9.4 %; Mean Corpuscular Hgb Conc 30.7 g/dL (32-36); Mean Corpuscular Volume 88.6 fL (80-100); Mean Platelet Volume 10.1 fL (7.4-10.4); Monocytes # (auto) 0.67 K/uL (0.11-0.59); Neutrophils # (auto) 5.99 K/uL (1.4-6.5); Neutrophils % (auto) 80.1 %; Platelet Count 170 K/uL (130-400); RDW Coefficient of Variation 16.2 % (11.5-14.5); Red Blood Count 4.64 M/uL (4.2-5.4); White Blood Count 7.47 K/uL (4.8-10.8)
[2018-03-31] MEDS ORDERED: ERGOCALCIFEROL 50,000 UNITS CAP PO SCH (08:15)
[2018-03-31] MEDS: dilTIAZem HCL 300 MG CAPCR PO SCH (08:55)
[2018-03-31] MEDS: ASPIRIN 81 MG ECTAB PO SCH ×2 (08:55→08:59)
[2018-03-31] MEDS: CALCIUM 600MG + VIT D 400 IU TAB PO SCH (08:56)
[2018-03-31] MEDS: POTASSIUM CHLORIDE 10 MEQ TABCR PO SCH (08:56)
[2018-03-31] MEDS: TRIAMTERENE/HCTZ 37.5/25MG TAB PO SCH (08:57)
[2018-03-31] MEDS: ATORVASTATIN 40 MG TAB PO SCH (08:57)
[2018-03-31] MEDS: MAGNESIUM OXIDE 400 MG TAB PO SCH (08:58)
[2018-03-31] MEDS: SERTRALINE HCL 100 MG TABLET PO SCH (08:58)
[2018-03-31] MEDS: TIOTROPIUM BROMIDE 5 PUFF/90 MCG INH INH SCH (08:59)
[2018-03-31] MEDS: FLUTICASONE/SALMETEROL 250/50 (ADVAIR) 14 PUFF/1 INHALER INH SCH (08:59)
[2018-03-31] MEDS: MULTIVITAMIN TAB PO SCH (09:00)
[2018-03-31] MEDS: HYDROCORTISONE VAL 0.2% CRM 15GM TUBE EXT SCH (09:00)
[2018-03-31] MEDS ORDERED: dilTIAZem HCL 120 MG CAPCR PO SCH (09:00)
[2018-03-31] MEDS ORDERED: CYANOCOBALAMIN 500 MCG TABLET (VITAMIN B-12) PO SCH (09:00)
[2018-03-31] MEDS: PANTOprazole 40 MG TAB PO SCH (09:00)
[2018-03-31] MEDS ORDERED: FOLIC ACID 1 MG TAB PO SCH (09:00)
[2018-03-31] MEDS: DIGOXIN 0.125 MG TAB PO SCH (15:10)
[2018-03-31] MEDS ORDERED: WARFARIN SOD 2.5 MG TAB PO SCH (16:00)
--- NOTE | 2018-04-08 13:41 | Discharge Summary ---
Date of Service April 08, 2018 Admission HPI Per Admitting Provider HISTORY OF PRESENT ILLNESS: This is a 67-year-old female with past medical history significant for chronic obstructive pulmonary disease, chronic respiratory failure, on oxygen 24x7, history of patent foramen ovale, history of pneumothorax, psoriasis, Raynaud syndrome, multifocal atrial tachycardia, depression, chronic kidney stage III, history of tobacco abuse, history of multiple pulmonary nodules and a history of persistent atrial fibrillation who presents with vertigo and dizziness. The patient woke up with a feeling of room spinning, feeling dizzy and having imbalance while ambulating. [facility] visited her around 3pm and at that time on examination, she was found to have ataxia, vertigo and also on examination, she was also having a positive Romberg testing and abnormal finger nose test and she was emergently brought to the Emergency Department. CT of the head was done which was unremarkable. Currently, the patient states the spinning of the room is getting better. Initially, she also had some blurred vision, double vision when the [facility] came and checked her, but that is getting better. She is resting comfortably and hemodynamically stable. Denies any headache. Denies any dizziness. No earache. No runny nose. No sore throat. No difficulty swallowing. Appetite is okay. No cough. No fever. No chills. She gets on and off sweating in the back of the head that has been going on for some time. No nausea. No abdominal pain. Normal bowel and bladder movements. No blood in the stools. No black stools. No burning micturition. No hematuria. No swelling of the legs. Before this, she was ambulating okay in house. She cannot climb stairs because of her chronic obstructive pulmonary disease and she is to use oxygen all the time. She lives alone and she states there is no family to check on her. Admission Exam Per Admitting Provider PHYSICAL EXAMINATION: GENERAL: The patient is of moderate build, not in acute distress. VITAL SIGNS: Temperature 36.8, pulse 73, respiratory rate 20, blood pressure 161/82 and oxygen 98% on room air. HEENT: No pallor. No icterus. Pupils are equal, round and react to light. No nystagmus. NECK: No JVD. No carotid bruit. No neck masses. Supple. CARDIOVASCULAR: S1 and S2 heard. Regular rate and rhythm. No murmur. No gallop. RESPIRATORY SYSTEM: Normal AP diameter. No accessory muscle use. No wheezing. No crackles. ABDOMEN: Soft. Bowel sounds are present. Nontender. No distention. CENTRAL NERVOUS SYSTEM: Cranial nerves II through XII are grossly intact. Power 5/5 in all extremities. Sensation is intact. Finger to nose test normal. Coordination of movements normal. No pronator drift. The patient on standing, she felt dizzy and could not complete Rhomberg test. EXTREMITIES: No edema. No erythema. Principal Diagnosis BPPV Peripheral neuropathy Vitamin B12 deficiency Folate deficiency Vitamin D deficiency Discharge Exam CONSTITUTIONAL: WNWD, vitals as above, generally well-appearing EYES: EOMI bilaterally, PERRL, normal conjuctivae, no scleral icterus ENT: MMM NECK: trachea midline RESPIRATORY: clear to auscultation bilaterally, no crackles, rales or wheezes, normal respiratory effort CARDIOVASCULAR: regular rate and rhythm, S1 and 2 heard without murmurs, gallops or rubs, no JVD, no peripheral edema GASTROINTESTINAL: normal bowel sounds, soft, nontender, nondistended MUSCULOSKELETAL: strength 5/5 throughout, head is normocephalic and atraumatic , SKIN: warm and dry NEUROLOGIC: Difficult to elicit reflexes secondary to patient resistance/ positioning. PERRL, EOMI, no facial palsy, no dysarthria. CN 2-12 grossly intact, no gross sensory deficit, normal cognition, normal speech PSYCHIATRIC: alert cooperative and oriented to person, place and time. Euthymic mood, makes good eye contact, language grossly intact Discharge Data Allergies Allergy/AdvReac Type Severity Reaction Status Date / Time Penicillins Allergy Severe SWELLING Verified 03/29/18 19:35 OF TONGUE AND THROAT Consultations 03/30/18 08:00 Consult Neurology Routine 03/29/18 18:57 ED Decision to Admit Stat 03/29/18 21:25 Consult Case Management - Discharge Planning Routine Consult Case Management - Discharge Planning Routine Ordered Studies 03/29/18 17:35 CT head/brain wo con Stat 03/29/18 21:25 MR angio head wo con Urgent MR brain wo/w con Urgent US carotid doppler BI Routine Hospital Course (1) Vertigo: (2) COPD (chronic obstructive pulmonary disease): (3) Persistent atrial fibrillation: 59-year-old female with intermittent dizziness throughout the day that was concerning initially for strokelike symptoms as this was persistent. She presents to the ER outside the window for TPA. CT head was performed and was normal, carotid ultrasound revealed no hemodynamically significant atherosclerotic plaque. MRI and MRA of the brain were within normal limits aside from some possible small vessel disease and a 6 mm meningioma. Neurology was consulted and felt the presentation was consistent with BPPV. As part of a stroke workup she underwent an echocardiogram with no significant change from prior echocardiogram done in June 2017. She also had some minor peripheral neuropathy that was noted on exam per neurology. She was found to be B12 and folate deficient and this replacement therapy was started during the hospitalization. Iron studies and vitamin D were also performed, with normal iron studies and vitamin D deficiency at 8.6. He she was started also on ergocalciferol weekly. After admission to the hospital vertigo improved and did not recur. She was discharged in stable condition with supplementation as above and recommended with close primary care follow-up. To have close primary care follow-up within a week of discharge. A one-year follow-up MRI was recommended to monitor her meningioma Total Time Total Time Spent Total Time Spent (In Minutes): 60 Total Time Includes: Examination of the Patient, Discharge Planning, Medication Reconciliation and Communication With Other Providers Discharge Plan Discharge Items Patient Disposition: Home - Self-Care Reason For Visit: STROKE LIKE SYMPTOMS Discharge Diagnosis: BPPV Peripheral neuropathy Vitamin B12 deficiency Folate deficiency Vitamin D deficiency Condition: Good Discharge Goals: Decrease discomfort Activity: Resume your previous activity Non-emergency contact: Primary Care Provider Call non-emergency contact if: you have any medication questions, your symptoms worsen, your pain is not controlled and you have a fever Follow-up/Referrals: Aleyda Bhatti MD [Primary Care Provider] - Diet: Heart Healthy Addtl Provider Instructions: Please take all medications as instructed on discharge list. You have been given a medication called meclizine, which is to help with dizziness if this occurs. This is not a medication you take regularly. UPCOMING PRIMARY CARE APPOINTMENT: Date & Time 04/05/2018 1:40 PM Provider Aleyda Bhatti MD Department Family Practice [facility] Please continue supplementation as prescribed on discharge for B12, folate and vitamin D. Please discuss repeat lab work with Dr. Bhatti on follow-up. Per neurology recommendations, please consider repeat MRI of the brain in 1 year to follow-up 6 mm meningioma. It was a pleasure taking care of you! Please call if you have any questions or problems. You can reach a [facility] hospitalist on duty at [facility] 24 hours a day by calling [phone]. Take care of yourself. Dominga Castellanos, DO [facility] Hospitalist Prescriptions: New meclizine 25 mg tablet 25 mg PO BID PRN (Reason: dizziness) Qty: 10 RF: 0 cyanocobalamin (vitamin B-12) [Vitamin B-12] 500 mcg Tablet 1,000 mcg PO QAM Qty: 30 RF: 1 ergocalciferol (vitamin D2) [Vitamin D2] 50,000 unit Capsule 50,000 unit PO Q7D Qty: 12 RF: 0 folic acid 1 mg Tablet 1 mg PO QAM Qty: 30 RF: 1 Continue warfarin 2.5 mg Tablet 5 mg PO SUTUTHSA@1600 RF: 0 warfarin 2.5 mg Tablet 2.5 mg PO MOWEFR@1600 RF: 0 multivitamin Tablet 1 tab PO DAILY RF: 0 desonide 0.05 % Cream 1 applic TOPICAL BID PRN (Reason: Rash) RF: 0 fluticasone-salmeterol [Advair Diskus] 250-50 mcg/dose Blister With Device 1 inh INHALATION BID RF: 0 doxycycline hyclate 100 mg Capsule 100 mg PO UD RF: 0 ipratropium-albuterol 0.5 mg-3 mg(2.5 mg base)/3 mL Solution For Nebulization 1 vial INHALATION QID PRN (Reason: Shortness Of Breath Or Wheezing) RF: 0 hydrocortisone valerate 0.2 % Cream 1 applic TOPICAL BID RF: 0 sertraline 100 mg Tablet 100 mg PO DAILY RF: 0 clobetasol [Temovate] 0.05 % Cream 1 applic TOPICAL BID PRN (Reason: Rash) RF: 0 tramadol 50 mg Tablet 50 mg PO Q6H PRN (Reason: Pain) RF: 0 prednisone 10 mg Tablets,Dose Pack 10 mg PO UD RF: 0 meloxicam 7.5 mg Tablet 7.5 mg PO DAILY RF: 0 oxycodone-acetaminophen 5-325 mg Tablet 1 tab PO Q4H PRN (Reason: pain) RF: 0 lorazepam [Ativan] 0.5 mg Tablet 0.5 mg PO DAILY PRN (Reason: Anxiety) RF: 0 lorazepam [Ativan] 0.5 mg Tablet 1 mg PO HS PRN (Reason: Insomnia) RF: 0 pantoprazole [Protonix] 40 mg Tablet,Delayed Release (Dr/Ec) 40 mg PO DAILY RF: 0 triamcinolone acetonide 0.1 % Ointment 1 applic topical DAILY PRN (Reason: Rash) RF: 0 triamterene-hydrochlorothiazid [Maxzide] 75-50 mg Tablet 0.5 tab PO DAILY RF: 0 fluocinonide 0.05 % Solution 1 applic topical DAILY PRN (Reason: Itching) RF: 0 albuterol sulfate [Ventolin HFA] 90 mcg/actuation Hfa Aerosol Inhaler 2 puff INHALATION Q4H PRN (Reason: Shortness Of Breath Or Wheezing) RF: 0 tiotropium bromide [Spiriva with HandiHaler] 18 mcg Capsule, W/Inhalation Device 1 cap INHALATION DAILY RF: 0 calcium carbonate-vitamin D3 [Calcium 600 + D(3)] 600 mg calcium- 200 unit Capsule 1 tab PO BID RF: 0 magnesium oxide 400 mg Capsule 400 mg PO BID RF: 0 potassium chloride 10 mEq Capsule, Extended Release 30 meq PO QAM RF: 0 potassium chloride 10 mEq Tablet Extended Release 20 meq PO HS RF: 0 digoxin 125 mcg Tablet 0.125 mg PO DAILY RF: 0 diltiazem HCl 420 mg Tablet Extended Release 24 Hr 420 mg PO DAILY RF: 0 Visit Report Forms: [facility] Stand-Alone Forms: [facility] Discharge Orders: Discharge Order (Routine); Ordered 03/31/18 Ordered By: Dominga Castellanos Admission Data Admit Date/Time: 03/29/18 20:16 Attending Provider: Dominga Castellanos Admit Provider: Armani Bates Primary Care Provider: Aleyda Bhatti Other Providers: Armani Bates ; Indiana Moran ; Rafa Segundo ; Indiana Holbrook ; Adiel Patiño ; Austin Oconnor ; Lilli Colon Service: Telemetry Other Interventions: Discharge Summary Assessment (RN) Last Done: 03/31/18 15:02 DC Date/Time DO NOT enter until pt leaves facility: 03/31/18 15:48
== END 2018-03-31 15:48 | disposition home or self-care (01) | DRG 149 ==
LOC: ED 17:05 → 2E 20:16

== ENCOUNTER 2018-07-07 06:20 | Inpatient (IN) ==
--- NOTE | 2018-07-06 13:46 | Anesthesiology Consultation ---
Date of Service July 06, 2018 Assessment & Plan (1) Encounter for pre-operative examination: Pulmonary: 07/05/18: "intermediate risk (13.3%) for pulmonary complications given hx severe COPD and recent COPD exacerbation (05/2018 s/p prednisone taper/doxycycline). "Her respiratory symptoms are back to baseline supplemental O2 use of 3.0lpm via nasal cannula." "Given intermediate risk for pulmonary complications with general anesthesia, recommend consideration of extubation to NIV. Recommend increased pulmonary hygiene post-operatively with use of acapella (flutter), incentive spirometry, and OOB/early ambulation. Resume anticoagulation once cleared by Cardiology." Cardiac Electrophysiology: 06/18/18: persistent AF with RVR depite high dose CCB/digoxin; on coumadin. [id number] 3. Patient symptomatic. Recommendation to hold coumadin 2 days before the procedure per EP. Scheduled for BiV pacemaker and AVN ablation. Chart sent for review at [facility] on 07/06/18 (afternoon prior to procedure). Patient not seen at [facility] and no RN phone interview at time of review. Will need to review PMHX/PSHX/meds/assess clinical status AM DOS to determine if acceptable risk to proceed with surgery. History Surgery Operation Date: 07/07/18 08:00 Proposed Procedures p ICD Biventricular Implant with Anesthesia - Indiana Araiza DO Height/Weight Height: 5 ft 10 in Weight: 101.6 kg Allergies Allergy/AdvReac Type Severity Reaction Status Date / Time Penicillins Allergy Severe SWELLING Verified 03/29/18 19:35 OF TONGUE AND THROAT Medications Home Medications Medication Instructions Recorded Confirmed Last Taken albuterol sulfate [Ventolin HFA] 2 puff INHALATION Q4H PRN 03/29/18 03/29/18 Unknown calcium carbonate-vitamin D3 1 tab PO BID 03/29/18 03/29/18 Unknown [Calcium 600 + D(3)] clobetasol [Temovate] 1 applic TOPICAL BID PRN 03/29/18 03/29/18 Unknown desonide 1 applic TOPICAL BID PRN 03/29/18 03/29/18 Unknown digoxin 0.125 mg PO DAILY 03/29/18 03/29/18 03/29/18 08:00 diltiazem HCl 420 mg PO DAILY 03/29/18 03/29/18 03/29/18 08:00 doxycycline hyclate 100 mg PO UD 03/29/18 03/29/18 Unknown fluocinonide 1 applic TOPICAL DAILY PRN 03/29/18 03/29/18 Unknown fluticasone propion-salmeterol 1 inh INHALATION BID 03/29/18 03/29/18 Unknown [Advair Diskus] hydrocortisone valerate 1 applic TOPICAL BID 03/29/18 03/29/18 Unknown ipratropium-albuterol 1 vial INHALATION QID PRN 03/29/18 03/29/18 Unknown lorazepam [Ativan] 0.5 mg PO DAILY PRN 03/29/18 03/29/18 Unknown lorazepam [Ativan] 1 mg PO HS PRN 03/29/18 03/29/18 Unknown magnesium oxide 400 mg PO BID 03/29/18 03/29/18 Unknown meloxicam 7.5 mg PO DAILY 03/29/18 03/29/18 Unknown multivitamin 1 tab PO DAILY 03/29/18 03/29/18 Unknown oxycodone-acetaminophen 1 tab PO Q4H PRN 03/29/18 03/29/18 Unknown pantoprazole [Protonix] 40 mg PO DAILY 03/29/18 03/29/18 Unknown potassium chloride 20 meq PO HS 03/29/18 03/29/18 Unknown potassium chloride 30 meq PO QAM 03/29/18 03/29/18 Unknown prednisone 10 mg PO UD 03/29/18 03/29/18 Unknown sertraline 100 mg PO DAILY 03/29/18 03/29/18 Unknown tiotropium bromide [Spiriva with 1 cap INHALATION DAILY 03/29/18 03/29/18 Unknown HandiHaler] tramadol 50 mg PO Q6H PRN 03/29/18 03/29/18 Unknown triamcinolone acetonide 1 applic TOPICAL DAILY PRN 03/29/18 03/29/18 Unknown triamterene-hydrochlorothiazid 0.5 tab PO DAILY 03/29/18 03/29/18 Unknown [Maxzide] warfarin 2.5 mg PO MOWEFR@1600 03/29/18 03/29/18 03/29/18 15:00 warfarin 5 mg PO SUTUTHSA@1600 03/29/18 03/29/18 Unknown cyanocobalamin (vitamin B-12) 1,000 mcg PO QAM #30 tab 03/31/18 Unknown [Vitamin B-12] ergocalciferol (vitamin D2) 50,000 unit PO Q7D #12 cap 03/31/18 Unknown [Vitamin D2] folic acid 1 mg PO QAM #30 tab 03/31/18 Unknown meclizine 25 mg PO BID PRN #10 tab 03/31/18 Unknown Past Medical History Medical History COPD (chronic obstructive pulmonary disease) "SEVERE" ON 3-4L CONTINUOUS Chronic respiratory failure Raynauds syndrome Depression Psoriasis Paroxysmal atrial fibrillation PFO (patent foramen ovale) CHF (congestive heart failure) DIASTOLIC CKD (chronic kidney disease) STAGE III GERD (gastroesophageal reflux disease) Obesity Pulmonary nodules Past Surgical History Surgical History History of hysterectomy H/O foot surgery S/P T&A (status post tonsillectomy and adenoidectomy) Social History Smoking Status: Former smoker Hx Alcohol Use: Yes Alcohol type: wine alcohol intake frequency: a few times a week Hx Substance Use: No Testing Electrocardiogram Date: 05/28/18 A. flutter with RVR at 123 bpm. LBBB. Compared to 05/04/18, TWI no longer evident in inferior leads per cardio. Chest X-Ray Date: 05/25/18 Borderline heart size with some perihilar haziness particularly on the left which could be due to positioning or represent very mild passive vascular congestion. Echocardiogram Date: 05/18/18 LVEF 50-54%. Mild inferior wall HK. Basal septum is thickened and angulated consistent with sigmoid septum. Masked dyssynergy of the interventricular septum and apical septum. Moderately increased cLV wall thickness. No significant valvular disease. Stress Test Date: 05/18/18 Type: nuclear Myocardial perfusion imaging was "normal." LVEF 66%. 83% MPHR. Laboratory Results 05/28/18 WBC 8.65 H/H 12.7/41.5 PLATELETS 199 06/18/18 SODIUM 142 POTASSIUM 4.4 CHLORIDE 99 CO2 31 BUN 27 CREATININE 1.1 GLUCOSE 126 07/05/18 PT 15.4 INR 1.19
[~2018-07-07 06:20] MED LIST changes: -ADVIN25/60 INH; -APIX1TAB3 PO; +CLINDAMYCIN 600 MG/54 ML BAG IV SCH; -DILT-115 PO; -DOXY1TAB6 PO; -LNX125 PO; -LORA-741 PO; +LR 15ML/HR IV SCH; -MAGN400T6 PO; -OXGN; -PANT40TA2 PO; -POTA1CAP2 PO; -SPRIN/30 INH; -TRIA75TA53 PO; -VNTHFA/IN INH; -ZLF/100 PO
[2018-07-07] MEDS ORDERED: LIDOCAINE HCL 1% 20 ML VIAL ONE (07:06)
[2018-07-07] MEDS ORDERED: BUPIVACAINE 0.25% 30 ML VIAL ONE (07:06)
[2018-07-07] MEDS ORDERED: BACITRACIN INJ 50,000 UNIT VIAL ONE (07:06)
[2018-07-07 07:39] LABS: INR 1.1 (0.9-1.1); Partial Thromboplastin Ratio 0.9; Partial Thromboplastin Time 23.7 Seconds (21.0-31.0); Prothrombin Time 10.8 Seconds (9.0-12.0)
[2018-07-07] MEDS ORDERED: MIDAZOLAM HCL 1 MG/ML 2ML VIAL ONE ×4 (07:51→13:01)
[2018-07-07] MEDS ORDERED: fentaNYL citrate 100 MCG/2 ML VIAL ONE ×3 (07:51→13:01)
[2018-07-07] MEDS ORDERED: fentaNYL citrate 100 MCG/2 ML VIAL IV PRN ×2 (07:55→14:22)
[2018-07-07] MEDS ORDERED: ATROPINE SULFATE 0.1 MG/ML 10ML SYR IV PRN (07:55)
[2018-07-07] MEDS ORDERED: ePHEDrine sulfate 50 MG/ML AMP IV PRN (07:55)
--- NOTE | 2018-07-07 08:06 | History & Physical Bridge Note ---
Date of Service July 07, 2018 History & Physical Bridge Note I have examined the patient, reviewed the History & Physical and in the interval since the performance of the History & Physical I have noted the following changes of clinical significance: no changes noted
[2018-07-07] MEDS ORDERED: LIDOCAINE HCL 2% 2 ML VIAL/AMP(20MG/ML) INFIL ONE (08:22)
[2018-07-07] MEDS ORDERED: PROPOFOL IV EMULSION 10 MG/ML 20 ML VIAL IV ONE ×4 (08:22→10:08)
[2018-07-07] MEDS ORDERED: HEPARIN SOD (PORCINE) 1000 UNIT/ML 10 ML VIAL ONE (08:26)
[2018-07-07] MEDS ORDERED: METOPROLOL TARTRATE 1 MG/ML VIAL IV ONE ×2 (10:04→10:56)
[2018-07-07] MEDS ORDERED: LABETALOL HCL IV 5 MG/ML 20ML IV ONE (11:31)
[2018-07-07] MEDS ORDERED: ONDANSETRON INJ 2 MG/ML 2 ML VIAL ONE (11:54)
[2018-07-07] MEDS ORDERED: OXYCODONE/ACETAMINOPHEN 5mg/325mg TAB PO PRN ×2 (12:07→12:09)
--- NOTE | 2018-07-07 12:07 | Operative Report ---
Post Operative Report Pre & Post Diagnosis Permanent AF with RVR despite AVN blockers-plan for AVN ablation and NICM Operation Date: 07/07/18 08:00 <No data on this case meets the specified criteria> Procedure Operation Date: 07/07/18 08:00 Actual Procedures p Pacer with Ventricular Lead - Indiana Araiza DO s Lead LV (No Priopr Implant) - Indiana Araiza DO Surgeon Indiana Araiza, Fill Manager none Estimated Blood Loss 75 Findings Consistent with Post-Op Diagnosis Specimens none Description of Procedure see official report I attest to the content of the Intraoperative Record and any orders documented therein. Any exceptions are noted below.
[2018-07-07] MEDS ORDERED: MECLIZINE HCL 25 MG TAB PO PRN (12:09)
[2018-07-07] MEDS ORDERED: ALBUT/IPRATROP 3MG/0.5MG NEB 3 ML VIAL INH PRN (12:09)
[2018-07-07] MEDS ORDERED: LORazepam 0.5 MG TAB PO PRN (12:09)
[2018-07-07] MEDS ORDERED: ALBUTEROL HFA 8 GM INHALER INH PRN (12:09)
[2018-07-07] MEDS ORDERED: TRIAMCINOLONE ACET 0.1% OINT 15 GM TUBE TOP PRN (12:09)
[2018-07-07] MEDS ORDERED: MELOXICAM 7.5 MG TAB PO PRN (12:09)
[2018-07-07] MEDS ORDERED: WARFARIN SOD 5 MG TAB PO SCH (12:15)
--- NOTE | 2018-07-07 12:57 | XRay Report ---
XR chest 1V portable CLINICAL HISTORY: post implant COMPARISON STUDY: 03/29/2018 FINDINGS: Interval placement of a permanent bipolar cardiac pacemaker. Leads appear to be in good pos ition. There is a 50% left-sided pneumothorax. Maximum pleural separation over the left pulmonary ape x is 4.3 cm with maximum pleural separation at the left base of 2.5 cm. IMPRESSION: 1. 50% left-sided pneumothorax with pleural separation dimensions as noted. 2. Bipolar cardiac pacemaker with leads in good position. The above report was generated using voice recognition software. It may contain grammatical, syntax or spelling errors. Electronically signed by: Frankie Schuler M.D. 07/07/2018 12:55 PM
--- NOTE | 2018-07-07 13:26 | Anesthesiology Progress Note ---
Date of Service July 07, 2018 Anesthesia Post Procedure Vital Signs Vital Signs: Temp Pulse Resp BP Pulse Ox 07/07/18 07:29 99.0 F 94 H 20 140/75 97 Notes Mental Status: see notes below Patient Amnestic to Procedure: Yes Nausea / Vomiting: adequately controlled Pain: adequately controlled Airway Patency, RR, SpO2: stable & adequate BP & HR: stable & adequate Hydration State: stable & adequate Anesthetic Complications: no major complications apparent Notes: Upon completion of the procedure, the patient was noted to be obtunded with O2 saturations in the mid-upper 80s. The patient had stable vital signs throughout her procedure. The patient was transported to PACU, and a portable CXR and arterial blood gas was drawn. The CXR showed a large L sided pneumothor ax and the ABG showed a pCO2 in the 90s. The patient was also acidotic. Dr. Mercado and Dr. Espinal was also at bedside. It was decided the patient was to be intubated in PACU and transferred to the ICU for chest tube insertion. The patient was intubated without difficulty, B/L breath sounds and +EtCO2. A repeat CXR would be performed in the ICU. The patient's vital signs were otherwise stable with O2 saturations in the mids 90s after intubation. Report was given to Dr. Mercado. Dr. Araiza was aware of the patient's current status. Care was transferred to the ICU team.
[2018-07-07 13:36] LABS: iSTAT Allen Test Pass; iSTAT Arterial Blood Gas HCO3 31 meg/L (19-24); iSTAT Arterial Blood Gas pCO2 97 mmHg (35-46); iSTAT Arterial Blood Gas pH 7.11 (7.35-7.45); iSTAT Carbon Dioxide 34 mEq/l (24-31); iSTAT Site L Radial
[2018-07-07] MEDS ORDERED: fentaNYL citrate 100 MCG/2 ML VIAL IV STA (14:21)
[2018-07-07] MEDS ORDERED: MIDAZOLAM HCL 1 MG/ML 2ML VIAL IV PRN (14:22)
--- NOTE | 2018-07-07 14:28 | XRay Report ---
XR chest 1V portable HISTORY: 67 years-old Female chest tube status post placement of a left-sided chest tube COMPARISON: Chest radiograph 07/07/2018 at 12:44 PM TECHNIQUE: Portable semierect AP view of the chest FINDINGS: Endotracheal tube terminates 8.0 cm superior to the nevin. Calcification the thoracic aortic arch. C ardiomediastinal and hilar silhouettes are within normal limits. Improved aeration of the left lung s tatus post placement of a pigtail catheter, distal tip terminating adjacent to the left lung apex. Sm all left-sided pneumothorax with pleural separation at the lateral left lung base measuring up to 11 mm, previously 2.6 cm. Suggestion of pneumomediastinum. Left greater than right bilateral interstitia l opacities. Degenerative changes of the shoulders and spine. Left subclavian pacer is noted, unchang ed. IMPRESSION: Small left-sided pneumothorax has decreased in size status post placement of a left-sided chest tube. The above report was generated using voice recognition software. It may contain grammatical, syntax o r spelling errors. Electronically signed by: Maximilian Vora M.D. 07/07/2018 2:26 PM
[2018-07-07] MEDS: SODIUM CHLORIDE 0.9% 1000ML 1,000 ML IV SCH (14:38)
--- NOTE | 2018-07-07 14:43 | Consultation ---
Date of Consultation July 07, 2018 Assessment & Plan (1) Acute on chronic respiratory failure with hypoxia and hypercapnia: (2) Pneumothorax on left: (3) S/P biventricular cardiac pacemaker procedure: POD #0 biventricular cardiac pacemaker placed with AVN by Dr. Araiza Secondary to atrial fibrillation with RVR despite AV anna blocking agents Procedure complicated by large left-sided pneumothorax 50%, ABG pH 7.11, CO2 97, HCO3 31 Patient was intubated and transferred to ICU and underwent left-sided chest tube insertion Defer further management to Casino Shift Manager (4) Hyperkalemia: D/C KCL supplements receiving IVF for mild volume contraction/renal insufficiency repeat bmp in a.m. (5) Hyperglycemia: ICU hyperglycemia protocol A1C 5.9 in 03/2018 A1C in a.m. (6) Atrial fibrillation: s/p Biv Pacemaker placement by Dr. Araiza POD #0 Once extubated will restart home meds Chadsvasc 3, warfarin held 5 days prior to procedure Resume coumadin at the recommendation of Dr. Araiza (7) CHF (congestive heart failure): euvolemic last echo Date: 05/18/18: LVEF 50-54%. Mild inferior wall HK. Basal septum is thickened and angulated consistent with sigmoid septum. Masked dyssynergy of the interventricular septum and apical septum. Moderately increased LV wall thickness. No significant valvular disease. (8) CKD (chronic kidney disease), stage III: baseline Cr 1.1 mild elevation in Cr to 1.39 Receiving IVF per Casino Shift Manager monitor bmp (9) COPD (chronic obstructive pulmonary disease): severe COPD on chronic 4L O2 resume trelegy (or house stock ICS/LABA/anticholinergic) when able (10) Depression: on zoloft (11) DVT prophylaxis: Disposition: to be determined Follow up: PCP Dr. Bhatti upon discharge Patient was seen in collaboration with Dr. Castellanos, please see addendum Supervising Physician Co-Signing Physician Notes I have seen and examined the patient and have discussed the case with the provider above. I agree with the assessment and plan as stated. In the ICU she is not on sedation and is waking up with plans to extubate her today. Cont chest tube. Dr. Cummings is attending and ICU managing her. DO Emnauel History of Present Illness Reason for Consultation: Medical management Requesting Physician: Dr. Mercado/Rishi Rodríguez PA-C Attending Physician: [place] Araiza DO History of Present Illness This is a 67-year-old female who has a significant past medical history of chronic respiratory failure secondary to severe COPD on 4L of O2, permanent atrial fibrillation anticoagulated with warfarin, multifocal atrial tachycardia, chronic diastolic CHF, CKD stage III, PFO, GERD, depression, bilateral hip avascular necrosis, history of spontaneous right pneumothorax who presents to [facility] secondary to elective biventricular pacemaker insertion and AV anna ablation by Dr. Araiza. Procedure was performed secondary to chronic symptomatic atrial fibrillation with RVR uncontrolled with AV anna blocking agents. Prior to procedure patient under went pulmonary evaluation on 07/05/18 in which it was deemed she was intermediate risk for procedure secondary to severe COPD and chronic respiratory failure. Patient unfortunately suffered from left pneumothorax and was subsequently transferred to ICU. Patient required intubation and ultimate chest tube placement secondary to 50% left-sided pneumothorax. We have been consulted for medical management. ROS unable to elicit given patient sedated and intubated. History provided from other providers and EMR Epic. Allergies Allergy/AdvReac Type Severity Reaction Status Date / Time Penicillins Allergy Severe SWELLING Verified 07/06/18 15:13 OF TONGUE AND THROAT Home Medications Home Medications Medication Instructions Recorded Confirmed Type Calcium 600 + D(3) 1 tab PO BID 03/29/18 07/07/18 History Spiriva with HandiHaler 1 cap INHALATION DAILY 03/29/18 07/07/18 History albuterol sulfate [Ventolin HFA] 2 puff INHALATION Q4H PRN 03/29/18 07/07/18 History clobetasol [Temovate] 1 applic TOPICAL BID PRN 03/29/18 07/07/18 History desonide 1 applic TOPICAL BID PRN 03/29/18 07/07/18 History digoxin 0.125 mg PO QAM 03/29/18 07/07/18 History diltiazem HCl 420 mg PO QAM 03/29/18 07/07/18 History fluocinonide 1 applic TOPICAL DAILY PRN 03/29/18 07/07/18 History hydrocortisone valerate 1 applic TOPICAL BID 03/29/18 07/07/18 History lorazepam [Ativan] 0.5 mg PO BID PRN 03/29/18 07/07/18 History lorazepam [Ativan] 1 mg PO HS PRN 03/29/18 07/07/18 History magnesium oxide 400 mg PO BID 03/29/18 07/07/18 History meloxicam 7.5 mg PO DAILY PRN 03/29/18 07/07/18 History multivitamin 1 tab PO DAILY 03/29/18 07/07/18 History oxycodone-acetaminophen 1 tab PO Q4H PRN 03/29/18 07/07/18 History pantoprazole [Protonix] 40 mg PO QAM 03/29/18 07/07/18 History potassium chloride 20 meq PO HS 03/29/18 07/07/18 History potassium chloride 30 meq PO QAM 03/29/18 07/07/18 History sertraline 1.5 tab PO QAM 03/29/18 07/07/18 History tramadol 50 mg PO Q6H PRN 03/29/18 07/07/18 History triamcinolone acetonide 1 applic TOPICAL DAILY PRN 03/29/18 07/07/18 History triamterene-hydrochlorothiazid 0.5 tab PO QAM 03/29/18 07/07/18 History [Maxzide] fluticasone propion-salmeterol 1 inh INHALATION BID 07/06/18 07/07/18 History [Advair Diskus] ipratropium-albuterol 3 ml INHALATION Q8H PRN 07/06/18 07/07/18 History meclizine 25 mg PO TID PRN 07/06/18 07/07/18 History warfarin [Coumadin] 5 mg PO UD 07/06/18 07/07/18 History Patient History Medical History Osteoarthritis (Chronic) Urinary incontinence (Chronic) Anxiety (Chronic) Atrial fibrillation (Chronic) GERD (gastroesophageal reflux disease) (Chronic) CHF (congestive heart failure) (Chronic) DIASTOLIC Pulmonary nodules (Chronic) Obesity (Chronic) CKD (chronic kidney disease) (Chronic) STAGE III COPD (chronic obstructive pulmonary disease) (Chronic) "SEVERE" ON 3-4L CONTINUOUS Chronic respiratory failure (Chronic) Raynauds syndrome (Chronic) Depression (Chronic) Psoriasis (Chronic) Paroxysmal atrial fibrillation (Chronic) PFO (patent foramen ovale) (Chronic) Surgical History History of colonoscopy (Chronic) History of tooth extraction (Chronic) History of tonsillectomy (Chronic) History of cataract surgery (Chronic) RT/LEFT History of hysterectomy (Chronic) H/O foot surgery (Chronic) LEFT FOOT SURGERY Social History Preferred Language: Turkish Communication Ability: Effective Insulation Power Unit Tender Required: No Beliefs That Will Affect Care: None Current Living Situation: Alone Current Living Situation Comment: LIVES ALONE [facility] Other Information That Helps Us Care for You: No Feels Safe at Home: Yes Safety Concerns: Feels Safe At This Time Smoking Status: Former smoker Hx Alcohol Use: Yes Hx Substance Use: No Review of Systems ROS unable to obtain secondary to reduced consciousness/intubation Physical Exam Vital Signs (Past 24 Hours): Last Vital Signs Temp 36.4 C L 07/07/18 13:23 Pulse 96 H 07/07/18 13:25 Resp 18 07/07/18 13:25 BP 177/112 H 07/07/18 13:23 Pulse Ox 98 07/07/18 13:25 Physical Exam: Gen: Morbidly obese, ill-appearing, female, lying in bed, intubated Head: Normocephalic, Atraumatic Eyes: Sclera normal, no conjunctival injection, ENT: Exam obscured secondary to ET tube Neck: supple, no adenopathy, No JVD, no bruit, Resp: Clear to auscultation b/l, no wheeze, rales, rhonchi. Normal insp/exp effort, no accessory muscle use CV: irregular rate, irregular rhythm, no murmur, rub, gallop, or ectopy LACW pacer insertion site CDI, L sided chest tube placed Abd: +obese, +BS x 4, soft, nontender, nondistended Musculoskeletal: moves extremities active rom x 4, strength intact, good chart reader strength Extremities: No edema bilaterally Skin: warm, moist, no rash, negative turgor, cap refill < 2sec Neuro: unable to assess given intubated : deferred Results & Data Laboratory Results Preoperative lab work revealed H&H 13.1 and 42.2, WBC 11, platelet 194 Sodium 142, potassium 4.4, chloride 99, CO2 31, BUN 27, creatinine 1.11 Diagnostic Findings CXR FINDINGS: Endotracheal tube terminates 8.0 cm superior to the nevin. Calcification the thoracic aortic arch. Cardiomediastinal and hilar silhouettes are within normal limits. Improved aeration of the left lung status post placement of a pigtail catheter, distal tip terminating adjacent to the left lung apex. Small left- sided pneumothorax with pleural separation at the lateral left lung base measuring up to 11 mm, previously 2.6 cm. Suggestion of pneumomediastinum. Left greater than right bilateral interstitial opacities. Degenerative changes of the shoulders and spine. Left subclavian pacer is noted, unchanged. IMPRESSION: Small left-sided pneumothorax has decreased in size status post placement of a left-sided chest tube. Medications Administered Sodium Chloride (Nss 1000ml) 1,000 mls @ 70 mls/hr IV .[id number] TERRANCE Stop: 08/06/18 14:29 Last Admin: 07/07/18 14:38 Dose: 70 mls/hr Documented by: [id number] Discontinued Medications Bacitracin (Bacitracin) Confirm Administered Dose 50,000 units .ROUTE .STK-MED ONE Stop: 07/07/18 07:07 Last Admin: 07/07/18 14:19 Dose: Not Given Documented by: [id number] Bupivacaine HCl (Sensorcaine 0.25% Inj) Confirm Administered Dose 30 ml .ROUTE .STK-MED ONE Stop: 07/07/18 07:07 Last Admin: 07/07/18 14:19 Dose: Not Given Documented by: [id number] Fentanyl Citrate (Fentanyl Citrate) Confirm Administered Dose 100 mcg .ROUTE .STK-MED ONE Stop: 07/07/18 13:02 Last Admin: 07/07/18 14:21 Dose: Not Given Documented by: [id number] Fentanyl Citrate (Fentanyl Citrate) 100 mcg IV NOW STA Stop: 07/07/18 14:22 Last Admin: 07/07/18 14:38 Dose: 100 mcg Documented by: [id number] Heparin Sodium (Porcine) (Heparin Iv Bolus) Confirm Administered Dose 10,000 units .ROUTE .STK-MED ONE Stop: 07/07/18 08:27 Last Admin: 07/07/18 14:20 Dose: Not Given Documented by: [id number] Lidocaine HCl (Xylocaine 1% (Local)) Confirm Administered Dose 20 ml .ROUTE .STK-MED ONE Stop: 07/07/18 07:07 Last Admin: 07/07/18 14:20 Dose: Not Given Documented by: [id number] Midazolam HCl (Versed) Confirm Administered Dose 4 mg .ROUTE .STK-MED ONE Stop: 07/07/18 13:02 Last Admin: 07/07/18 14:21 Dose: Not Given Documented by: [id number] ECG Rate (beats per minute): 100 Findings: + paced rhythm (1) CHF (congestive heart failure) Heart failure chronicity: chronic Heart failure type: diastolic Qualified Code(s): I50.32 - Chronic diastolic (congestive) heart failure (2) Atrial fibrillation Atrial fibrillation type: permanent Qualified Code(s): I48.2 - Chronic atrial fibrillation (3) Depression Active/Remission status: remission status unspecified Depression Type: major depressive disorder Major depression recurrence: unspecified whether recurrent Qualified Code(s): F32.9 - Major depressive disorder, single episode, unspecified (4) COPD (chronic obstructive pulmonary disease) COPD type: emphysema Emphysema type: unspecified Qualified Code(s): J43.9 - Emphysema, unspecified
[2018-07-07 15:02] LABS: Hematocrit (blood only) 44.8 % (37-47); Hemoglobin 13.6 g/dL (12.0-16.0); Mean Corpuscular Hgb Conc 30.4 g/dL (32-36); Mean Corpuscular Volume 89.8 fL (80-100); Mean Platelet Volume 10.5 fL (7.4-10.4); Platelet Count 183 K/uL (130-400); RDW Coefficient of Variation 15.6 % (11.5-14.5); RDW Standard Deviation 51.1 fL (36.4-46.3); Red Blood Count 4.99 M/uL (4.2-5.4); White Blood Count 22.47 K/uL (4.8-10.8)
[2018-07-07 15:39] LABS: Basophils # (auto) 0.01 K/uL (0-0.2); Immature Granulocytes # (auto) 0.07 K/uL (0.00-0.02); Immature Granulocytes % (auto) 0.3 %; Monocytes # (auto) 0.81 K/uL (0.11-0.59); Monocytes % (auto) 3.6 %; Neutrophils # (auto) 20.68 K/uL (1.4-6.5); Neutrophils % (auto) 92.1 %
[2018-07-07 15:43] LABS: Albumin Level 2.9 gm/dl (3.4-5.0); BUN Creatinine Ratio 13.3 (10-20); Calcium 8.4 mg/dl (8.5-10.1); Creatinine Clr Calc Pharmacy 50.4 ml/min; Est GFR (African American) 45.4; Est GFR (Non-African American) 39.2; Magnesium 2.2 mg/dl (1.8-2.4); Potassium 5.4 mmol/L (3.5-5.1)
[2018-07-07 15:46] LABS: Albumin Globulin Ratio 0.9 (0.9-2); Bilirubin,Total 0.3 mg/dl (0.2-1); Globulin 3.1 gm/dl (2.5-4.0)
[2018-07-07] MEDS ORDERED: ICU PROTOCOL FOR HYPERGLYCEMIA PRN ×2 (15:53→17:06)
--- NOTE | 2018-07-07 15:58 | Critical Care Consultation ---
Date of Consultation July 07, 2018 Assessment & Plan (1) S/P biventricular cardiac pacemaker procedure: POD #0 biventricular pacemaker placement by Dr. Cummings Status post left pneumothorax perioperatively Chest tube placement by Dr. Mercado as listed below Patient admitted to intensive care unit for overnight observation for resolution of pneumothorax EKG shows paced rhythm Further management by electrophysiology (2) Pneumothorax on left: Secondary to procedure Left 14-gauge pigtail catheter placed in the mid axillary line under ultrasound guidance Postoperative chest x-ray shows almost complete resolution of pneumothorax Continue suction Follow-up chest x-ray in the morning (3) Admitted to intensive care unit: Reason Critically Ill: Perioperatively developed a left pneumothorax requiring intubation and chest tube placement Neuro - [facility] ICU: Patient is sedated currently with mechanical ventilation. No acute neurological findings on exam Cardiac - Echocardiogram 05/18/2018. LVEF 50-55%. No significant valvular disease. Mild inferior wall hypokinesis. Basal septum is thickened. Moderately increased left ventricular wall thickness. Continue with patient's home medications once patient is extubated later today Persistent atrial fibrillation with diltiazem, digoxin, warfarin, and Maxide Cardiology/electrophysiology following Respiratory - COPD on chronic supplemental O2 of 3-4 L/min via nasal cannula at home Resume home medications when patient is extubated Anticipate that the patient will be extubated later today No indication for pulmonary consultation at this time Continue to monitor GI - Chronic GERD without esophagitis Continue pantoprazole RENAL/LYTES - Stage III chronic kidney disease Creatinine 1.38 Strict I's and O's Follow serial labs - Vuong catheter per nursing protocol for strict I's and O's Continue to monitor ENDO - No history of diabetes mellitus No history of a hypothyroidism Follow glucose per protocol HEME - Hemoglobin 13.6, hematocrit 44.8 No significant blood loss with procedure Monitor serial labs ID - Leukocytosis with a white count of 22.47 No indication of infection Suspect leukemoid reaction Follow serial lab Afebrile No indication at this point for antibiotics LINES/IV ACCESS - Peripheral IVs in place No indication for central line at this time Continue to monitor DVT PROPHYLAXIS - Chemical prophylaxis per electrophysiology Warfarin has been held in anticipation for pacemaker placement Resume warfarin once chest tube is removed Patient currently bedrest secondary to mechanical ventilation Increase ambulation as tolerated once extubated CCT: 40 minutes independent of any procedures Thank you for including us in the care of this patient. Please refer to Dr. Mercado's addendum for further recommendations. Supervising Physician Co-Signing Physician Notes I have personally evaluated and examined this patient. I agree with assessment and plan of Karen Rodríguez PA-C. Patient was able to be extubated a few hours later after recovery of acute hypercarbic respiratory failure secondary to postprocedural respiratory insufficiency. Hyperkalemia was secondary to acidosis from hypercarbia. History of Present Illness Reason for Consultation: Left pneumothorax/respiratory failure Requesting Physician: Dr. Araiza Attending Physician: [place] Araiza, History of Present Illness Attending: Dr. Mercado This is a 67 yo female that presented for outpatient placememnt of a biventricular pacemaker. Perioperatively she developed a left sided pneumothorax. We were asked to evaluate the patient and saw her immediately in the PACU. She was intubated by anesthesia with a 7.5mm endotracheal tube upon our arrival. The patient was stabilized and transferred to the surgical intensive care unit in room 103. Dr. Mercado urgently placed a 14 fr pigtail catheter under ultra sound guidance. Post procedure CXR reveal almost complete resolution of the pneumothorax. Patient has a past medical history of chronic obstructive pulmonary disease, chronic respiratory failure, on oxygen 24x7, history of patent foramen ovale, history of spontaneous pneumothorax, psoriasis, Raynaud syndrome, multifocal atr ial tachycardia, depression, chronic kidney stage III, history of tobacco abuse, history of multiple pulmonary nodules, history of persistent atrial fibrillation, GERD, chronic opioid use, chronic antiinflammatory use, chronic anticoagulation with warfarin, and HTN. Patient is unable to provide any history or ROS secondary to her condition. Allergies Allergy/AdvReac Type Severity Reaction Status Date / Time Penicillins Allergy Severe SWELLING Verified 07/06/18 15:13 OF TONGUE AND THROAT Home Medications Home Medications Medication Instructions Recorded Confirmed Type Calcium 600 + D(3) 1 tab PO BID 03/29/18 07/07/18 History Spiriva with HandiHaler 1 cap INHALATION DAILY 03/29/18 07/07/18 History albuterol sulfate [Ventolin HFA] 2 puff INHALATION Q4H PRN 03/29/18 07/07/18 History clobetasol [Temovate] 1 applic TOPICAL BID PRN 03/29/18 07/07/18 History desonide 1 applic TOPICAL BID PRN 03/29/18 07/07/18 History digoxin 0.125 mg PO QAM 03/29/18 07/07/18 History diltiazem HCl 420 mg PO QAM 03/29/18 07/07/18 History fluocinonide 1 applic TOPICAL DAILY PRN 03/29/18 07/07/18 History hydrocortisone valerate 1 applic TOPICAL BID 03/29/18 07/07/18 History lorazepam [Ativan] 0.5 mg PO BID PRN 03/29/18 07/07/18 History lorazepam [Ativan] 1 mg PO HS PRN 03/29/18 07/07/18 History magnesium oxide 400 mg PO BID 03/29/18 07/07/18 History meloxicam 7.5 mg PO DAILY PRN 03/29/18 07/07/18 History multivitamin 1 tab PO DAILY 03/29/18 07/07/18 History oxycodone-acetaminophen 1 tab PO Q4H PRN 03/29/18 07/07/18 History pantoprazole [Protonix] 40 mg PO QAM 03/29/18 07/07/18 History potassium chloride 20 meq PO HS 03/29/18 07/07/18 History potassium chloride 30 meq PO QAM 03/29/18 07/07/18 History sertraline 1.5 tab PO QAM 03/29/18 07/07/18 History tramadol 50 mg PO Q6H PRN 03/29/18 07/07/18 History triamcinolone acetonide 1 applic TOPICAL DAILY PRN 03/29/18 07/07/18 History triamterene-hydrochlorothiazid 0.5 tab PO QAM 03/29/18 07/07/18 History [Maxzide] fluticasone propion-salmeterol 1 inh INHALATION BID 07/06/18 07/07/18 History [Advair Diskus] ipratropium-albuterol 3 ml INHALATION Q8H PRN 07/06/18 07/07/18 History meclizine 25 mg PO TID PRN 07/06/18 07/07/18 History warfarin [Coumadin] 5 mg PO UD 07/06/18 07/07/18 History Patient History Medical History Osteoarthritis (Chronic) Urinary incontinence (Chronic) Anxiety (Chronic) Atrial fibrillation (Chronic) GERD (gastroesophageal reflux disease) (Chronic) CHF (congestive heart failure) (Chronic) DIASTOLIC Pulmonary nodules (Chronic) Obesity (Chronic) CKD (chronic kidney disease) (Chronic) STAGE III COPD (chronic obstructive pulmonary disease) (Chronic) "SEVERE" ON 3-4L CONTINUOUS Chronic respiratory failure (Chronic) Raynauds syndrome (Chronic) Depression (Chronic) Psoriasis (Chronic) Paroxysmal atrial fibrillation (Chronic) PFO (patent foramen ovale) (Chronic) Surgical History History of colonoscopy (Chronic) History of tooth extraction (Chronic) History of tonsillectomy (Chronic) History of cataract surgery (Chronic) RT/LEFT History of hysterectomy (Chronic) H/O foot surgery (Chronic) LEFT FOOT SURGERY Social History Preferred Language: Welsh Communication Ability: Effective Wired Sweatband Cutter Required: No Beliefs That Will Affect Care: None Current Living Situation: Alone Current Living Situation Comment: LIVES ALONE [facility] Other Information That Helps Us Care for You: No Feels Safe at Home: Yes Safety Concerns: Feels Safe At This Time Smoking Status: Former smoker Hx Alcohol Use: Yes Hx Substance Use: No Review of Systems A total of 12 systems was reviewed and is negative other than as listed above in the HPI Physical Exam Vital Signs (Past 24 Hours): Last Vital Signs Temp 36.3 C L 07/07/18 15:00 Pulse 103 H 07/07/18 15:00 Resp 19 07/07/18 15:00 BP 120/85 07/07/18 15:00 Pulse Ox 100 07/07/18 15:00 Physical Exam: GENERAL : No acute distress. Intubated and sedated EYES: No icterus, gaze conjugate. Pupils equal round and reactive to light NOSE: No evidence of epistaxis. MOUTH: No lesions or candidiasis. Endotracheal tube in place and secure NECK: Supple. No distended vessels LUNGS: Decreased breath sounds in the left upper lobe. No bronchospasm HEART: Regular, rate controlled. Paced rhythm on EKG ABDOMEN: Soft, NT, ND, BS Present. EXTREMITIES: No LE edema, pedal pulses intact NEURO: Sedated secondary to intubation. PERRL. Results & Data Laboratory Results 07/07/18 14:43 07/07/18 14:43 Diagnostic Findings XR chest 1V portable HISTORY: 67 years-old Female chest tube status post placement of a left-sided chest tube COMPARISON: Chest radiograph 07/07/2018 at 12:44 PM TECHNIQUE: Portable semierect AP view of the chest FINDINGS: Endotracheal tube terminates 8.0 cm superior to the nevin. Calcification the thoracic aortic arch. Cardiomediastinal and hilar silhouettes are within normal limits. Improved aeration of the left lung status post placement of a pigtail catheter, distal tip terminating adjacent to the left lung apex. Small left- sided pneumothorax with pleural separation at the lateral left lung base measuring up to 11 mm, previously 2.6 cm. Suggestion of pneumomediastinum. Left greater than right bilateral interstitial opacities. Degenerative changes of the shoulders and spine. Left subclavian pacer is noted, unchanged. IMPRESSION: Small left-sided pneumothorax has decreased in size status post placement of a left-sided chest tube. The above report was generated using voice recognition software. It may contain grammatical, syntax or spelling errors. Electronically signed by: Maximilian Vora M.D. 07/07/2018 2:26 PM XR chest 1V portable CLINICAL HISTORY: post implant COMPARISON STUDY: 03/29/2018 FINDINGS: Interval placement of a permanent bipolar cardiac pacemaker. Leads appear to be in good position. There is a 50% left-sided pneumothorax. Maximum p leural separation over the left pulmonary apex is 4.3 cm with maximum pleural separation at the left base of 2.5 cm. IMPRESSION: 1. 50% left-sided pneumothorax with pleural separation dimensions as noted. 2. Bipolar cardiac pacemaker with leads in good position. Electronically signed by: Frankie Schuler M.D. 07/07/2018 12:55 PM ECG Additional Comments: Paced ventricular rhythm Rate 100 bpm QTC 510
[2018-07-07] MEDS ORDERED: INFLUENZA ADMINISTRATION CHARGE ONE (16:00)
[2018-07-07] MEDS ORDERED: INFLUENZA VIRUS QUAD VACCINE 0.5 ML SYR IM ONE (16:00)
[2018-07-07] MEDS ORDERED: PNEUMOCOCCAL ADMINISTRATION CHARGE ONE (16:00)
[2018-07-07] MEDS ORDERED: PNEUMOCOCCAL POLYSACCHARIDES 25 MCG/0.5 ML VIAL/SYR IM ONE (16:00)
[2018-07-07 17:05] LABS: iSTAT Allen Test Pass; iSTAT Arterial Blood Gas HCO3 29 meg/L (19-24); iSTAT Arterial Blood Gas pCO2 55 mmHg (35-46); iSTAT Arterial Blood Gas pH 7.33 (7.35-7.45); iSTAT Carbon Dioxide 31 mEq/l (24-31); iSTAT FiO2 50 %; iSTAT Site R Radial
[2018-07-07 17:15] LABS: BUN Creatinine Ratio 16.7 (10-20); Calcium 8.4 mg/dl (8.5-10.1); Creatinine Clr Calc Pharmacy 56.6 ml/min; Est GFR (African American) 52.2; Potassium 5.1 mmol/L (3.5-5.1)
[2018-07-07] MEDS ORDERED: POTASSIUM CHLORIDE 10 MEQ TABCR PO SCH (21:00)
[2018-07-07] MEDS ORDERED: MAGNESIUM OXIDE 400 MG TAB PO SCH (21:00)
[2018-07-07] MEDS ORDERED: CALCIUM 600MG + VIT D 400 IU TAB PO SCH (21:00)
[2018-07-07] MEDS ORDERED: ACETAMINOPHEN 1,000 MG/100 ML VIAL IV STA (21:28)
[2018-07-07] MEDS: HYDROCORTISONE VAL 0.2% CRM 15GM TUBE EXT SCH (22:05)
[2018-07-08] MEDS: TRAMADOL HCL 50 MG TABLET PO PRN ×4 (00:20→23:23)
[2018-07-08 04:38] LABS: iSTAT Allen Test Pass; iSTAT Arterial Blood Gas HCO3 30 meg/L (19-24); iSTAT Arterial Blood Gas pCO2 59 mmHg (35-46); iSTAT Arterial Blood Gas pH 7.32 (7.35-7.45); iSTAT Carbon Dioxide 32 mEq/l (24-31); iSTAT Site R Radial
[2018-07-08 04:52] LABS: Hematocrit (blood only) 40.8 % (37-47); Hemoglobin 12.3 g/dL (12.0-16.0); Mean Corpuscular Hgb Conc 30.1 g/dL (32-36); Mean Corpuscular Volume 89.1 fL (80-100); Mean Platelet Volume 10.8 fL (7.4-10.4); Platelet Count 134 K/uL (130-400); RDW Coefficient of Variation 15.7 % (11.5-14.5); RDW Standard Deviation 50.8 fL (36.4-46.3); Red Blood Count 4.58 M/uL (4.2-5.4); White Blood Count 13.99 K/uL (4.8-10.8)
[2018-07-08 05:18] LABS: Calcium 8.4 mg/dl (8.5-10.1); Creatinine Clr Calc Pharmacy 68.2 ml/min; Est GFR (African American) 64.7; Est GFR (Non-African American) 55.8; Potassium 4.4 mmol/L (3.5-5.1)
--- NOTE | 2018-07-08 06:57 | XRay Report ---
XR chest 1V portable CLINICAL HISTORY: f/u dyspnea COMPARISON STUDY: 07/07/2018 FINDINGS: Interval extubation. Mild stable cardia megaly. Permanent bipolar cardiac pacemaker remains in good position. Unchanging location of the left pigtail catheter. Slight increase in pleural separ ation left apical pneumothorax at 1.3 cm. Interstitial and parenchymal changes throughout the left an d to lesser extent right hemithorax are stable IMPRESSION: 1. Interval extubation. 2. Small left apical pneumothorax with a maximum pleural separation of 1.3 cm. This is slightly incre ased in prominence from the prior study at the left apex and perhaps somewhat improved at the left ba se.. 3. Unchanged position of a small caliber left-sided chest tube. The above report was generated using voice recognition software. It may contain grammatical, syntax or spelling errors. Electronically signed by: Frankie Schuler M.D. 07/08/2018 6:56 AM
--- NOTE | 2018-07-08 07:01 | Critical Care Progress Note ---
Date of Service July 08, 2018 Assessment & Plan (1) Admitted to intensive care unit: Reason Critically Ill: 67-year-old female here for perioperative pneumothorax requiring intubation and chest tube. Past medical history significant for chronic obstructive pulmonary disease, chronic respiratory failure, on oxygen 24x7, history of patent foramen ovale, history of pneumothorax, psoriasis, Raynaud syndrome, multifocal atrial tachycardia, depression, chronic kidney stage III, history of tobacco abuse, history of multiple pulmonary nodules and a history of persistent atrial fibrillation Neuro: -CAM ICU: NEGATIVE -AAOx3 Cardiac: -POD1 s/p bivi pacemaker placement -echo form 05/18 EF 50-55%, inf wall hypokinesis, septum thinckend -Chronic Afib continue home cardiac meds:dilt, dig, warfarin, and maxide -Cards and EP cx'd, following recs Respiratory: -Intraop pneumo requiring chest tube (14-gauge pigtail cath placed under U/S guidance by Dr. Mercado -Postop cxr demonstrated almost complete resolution of pneumo -CXR this am showed Small left apical pneumothorax with a maximum pleural separation of 1.3 cm. This is slightly increased in prominence from the prior study at the left apex and perhaps somewhat improved at the left base. -Could be positional, continue to mointor -Pt extubated overnight without issue -F/U 1400 cxr -Satting 94% on 3L NC, goal >92%, wean as tolerated prn o2 as required GI: -AHA diet -GERD->pantoprazole RENAL/LYTES: -Stage III CKD, cr 1.03 down from 1.38 -No significant electrolyte derangement. -Replace lytes as needed. : -mejia out voiding on her own ENDO: -ICU hyperglycemia protocol HEME: - HGB 12.3 from 13.6 likely dilutional given similar change in hct and platlets - no si/sx of anemia at present - Continue to trend with am labs ID: -Leukocytosis resolving 13.99 down from 22.47 -likely 2/2 to recent surgical procedure -afebrile since admission -continue to trend -Monitor fever curve. LINES/IV ACCESS: -PIVs intact. -Chest tube in place -4 hours on 4 hours up 2/2 Grade 2 air leak -consider GT surgery cx if airleak persists >24hours DVT PROPHYLAXIS: - Per EP - Warfarin - SCDS - ambulate as tolerated now that chest tube is removed Dispo:ICU pending pneumo resolution Thank you for allowing us to be part of this patient's care. Please refer to Dr. Mercado's documentation for any further recommendations. Supervising Physician Co-Signing Physician Notes Dr. Kincaid was resident physician during care of patient. I separately evaluated patient for pendleton portions of the history and the exam. I was present during the critical portion of medical decision making, and I discussed the case with the resident. I generally agree with the findings and plan. Placed chest tube back on suction 4 hours on 4 hours up secondary to grade 2 airleak. If air leak persists beyond 24 hours will give thoracic surgery consult for possible intervention. Patient was discussed in multidisciplinary rounds, discussed with Dr. Araiza Subjective Pt laying inbed this morning in [facility]. She was extubated yesterday evening, reports not sleeping much overnight. Tolerated breakfast this morning, voiding, no bm yet, no acute concerns. Physical Exam Vital Signs (Past 24 Hours): Last Vital Signs Temp 37.4 C 07/08/18 03:41 Pulse 109 H 07/08/18 06:01 Resp 22 07/08/18 06:01 BP 148/99 H 07/08/18 06:01 Pulse Ox 96 07/08/18 06:01 Physical Exam: GEN: WD/WN obese female in NAD Eyes: EOMI/PERRLA Neck: Trachea midline negative jvd Chest: CTAB/L no wrr Cards: RRR,no mrg nl s1 s2 GI: Soft nontender non distended nl bs Ext: moves all, - edema skin: incision clean dry and intact, left chest tube in place questionable Results & Data Laboratory Results 07/08/18 04:17 07/08/18 04:17 07/08/18 07/08/18 07/08/18 Range/Units 04:25 04:17 04:17 WBC 13.99 H (4.8-10.8) K/uL RBC 4.58 (4.2-5.4) M/uL Hgb 12.3 (12.0-16.0) g/dL Hct 40.8 (37-47) % MCV 89.1 (80-100) fL MCH 26.9 (25-34) pg MCHC 30.1 L (32-36) g/dL RDW Std Deviation 50.8 H (36.4-46.3) fL RDW Coeff of Daniela 15.7 H (11.5-14.5) % Plt Count 134 (130-400) K/uL MPV 10.8 H (7.4-10.4) fL Immature Gran % (Auto) % Neut % (Auto) % Lymph % (Auto) % [place] % (Auto) % Eos % (Auto) % Baso % (Auto) % Immature Gran # (Auto) (0.00-0.02) K/uL Neut # (Auto) (1.4-6.5) K/uL Lymph # (Auto) (1.2-3.4) K/uL [place] # (Auto) (0.11-0.59) K/uL Eos # (Auto) (0-0.5) K/uL Baso # (Auto) (0-0.2) K/uL Sample Site R Radial POC pH 7.32 L (7.35-7.45) POC pCO2 59 H (35-46) mmHg POC pO2 99 H (80-95) mmHg POC HCO3 30 H (19-24) anayeli/L POC Total CO2 32 H (24-31) mEq/l POC Base Excess 4.0 H (-9-1.8) anayeli/L POC ABG O2 Sat 97.0 H (90-95) % Raoul Test Pass O2 Delivery Device Cannula POC O2 Rate Minute Ventilation POC FiO2 % Tidal Volume PEEP Sodium 139 (136-145) mmol/L Potassium 4.4 (3.5-5.1) mmol/L Chloride 105 (98-107) mmol/L Carbon Dioxide 32 (21-32) mmol/L Anion Gap 2.0 L (3-11) BUN 20 H (7-18) mg/dl Creatinine 1.03 (0.6-1.2) mg/dl Est Cr Clr Drug Dosing 68.2 ml/min Est GFR ( Amer) 64.7 Est GFR (Non-Af Amer) 55.8 BUN/Creatinine Ratio 19.0 (10-20) Glucose 126 H (70-99) mg/dl POC Glucose (70-99) Calcium 8.4 L (8.5-10.1) mg/dl Phosphorus 4.0 (2.5-4.9) mg/dl Magnesium 2.0 (1.8-2.4) mg/dl Total Bilirubin (0.2-1) mg/dl AST (15-37) U/L ALT (12-78) U/L Alkaline Phosphatase (45-117) U/L Total Protein (6.4-8.2) gm/dl Albumin (3.4-5.0) gm/dl Globulin (2.5-4.0) gm/dl Albumin/Globulin Ratio (0.9-2) Nasal Screen MRSA (PCR) (Negative) 07/07/18 07/07/18 07/07/18 Range/Units 23:20 16:51 16:47 WBC (4.8-10.8) K/uL RBC (4.2-5.4) M/uL Hgb (12.0-16.0) g/dL Hct (37-47) % MCV (80-100) fL MCH (25-34) pg MCHC (32-36) g/dL RDW Std Deviation (36.4-46.3) fL RDW Coeff of Daniela (11.5-14.5) % Plt Count (130-400) K/uL MPV (7.4-10.4) fL Immature Gran % (Auto) % Neut % (Auto) % Lymph % (Auto) % [place] % (Auto) % Eos % (Auto) % Baso % (Auto) % Immature Gran # (Auto) (0.00-0.02) K/uL Neut # (Auto) (1.4-6.5) K/uL Lymph # (Auto) (1.2-3.4) K/uL [place] # (Auto) (0.11-0.59) K/uL Eos # (Auto) (0-0.5) K/uL Baso # (Auto) (0-0.2) K/uL Sample Site R Radial POC pH 7.33 L (7.35-7.45) POC pCO2 55 H (35-46) mmHg POC pO2 133 H (80-95) mmHg POC HCO3 29 H (19-24) anayeli/L POC Total CO2 31 (24-31) mEq/l POC Base Excess 3.0 H (-9-1.8) anayeli/L POC ABG O2 Sat 99.0 H (90-95) % Raoul Test Pass O2 Delivery Device Ventilator POC O2 Rate 18 Minute Ventilation 8.10 POC FiO2 50 % Tidal Volume 450 PEEP 3 Sodium 139 (136-145) mmol/L Potassium 5.1 (3.5-5.1) mmol/L Chloride 108 H (98-107) mmol/L Carbon Dioxide 28 (21-32) mmol/L Anion Gap 3.0 (3-11) BUN 21 H (7-18) mg/dl Creatinine 1.23 H (0.6-1.2) mg/dl Est Cr Clr Drug Dosing 56.6 ml/min Est GFR ( Amer) 52.2 Est GFR (Non-Af Amer) 45.0 BUN/Creatinine Ratio 16.7 (10-20) Glucose 184 H (70-99) mg/dl POC Glucose 108 H (70-99) Calcium 8.4 L (8.5-10.1) mg/dl Phosphorus (2.5-4.9) mg/dl Magnesium (1.8-2.4) mg/dl Total Bilirubin (0.2-1) mg/dl AST (15-37) U/L ALT (12-78) U/L Alkaline Phosphatase (45-117) U/L Total Protein (6.4-8.2) gm/dl Albumin (3.4-5.0) gm/dl Globulin (2.5-4.0) gm/dl Albumin/Globulin Ratio (0.9-2) Nasal Screen MRSA (PCR) (Negative) 07/07/18 07/07/18 07/07/18 Range/Units 16:15 16:14 14:43 WBC (4.8-10.8) K/uL RBC (4.2-5.4) M/uL Hgb (12.0-16.0) g/dL Hct (37-47) % MCV (80-100) fL MCH (25-34) pg MCHC (32-36) g/dL RDW Std Deviation (36.4-46.3) fL RDW Coeff of Daneila (11.5-14.5) % Plt Count (130-400) K/uL MPV (7.4-10.4) fL Immature Gran % (Auto) % Neut % (Auto) % Lymph % (Auto) % [place] % (Auto) % Eos % (Auto) % Baso % (Auto) % Immature Gran # (Auto) (0.00-0.02) K/uL Neut # (Auto) (1.4-6.5) K/uL Lymph # (Auto) (1.2-3.4) K/uL [place] # (Auto) (0.11-0.59) K/uL Eos # (Auto) (0-0.5) K/uL Baso # (Auto) (0-0.2) K/uL Sample Site POC pH (7.35-7.45) POC pCO2 (35-46) mmHg POC pO2 (80-95) mmHg POC HCO3 (19-24) anayeli/L POC Total CO2 (24-31) mEq/l POC Base Excess (-9-1.8) anayeli/L POC ABG O2 Sat (90-95) % Raoul Test O2 Delivery Device POC O2 Rate Minute Ventilation POC FiO2 % Tidal Volume PEEP Sodium 139 (136-145) mmol/L Potassium 5.4 H (3.5-5.1) mmol/L Chloride 105 (98-107) mmol/L Carbon Dioxide 31 (21-32) mmol/L Anion Gap 3.0 (3-11) BUN 18 (7-18) mg/dl Creatinine 1.38 H (0.6-1.2) mg/dl Est Cr Clr Drug Dosing 50.4 ml/min Est GFR ( Amer) 45.4 Est GFR (Non-Af Amer) 39.2 BUN/Creatinine Ratio 13.3 (10-20) Glucose 238 H (70-99) mg/dl POC Glucose 210 H 224 H (70-99) Calcium 8.4 L (8.5-10.1) mg/dl Phosphorus (2.5-4.9) mg/dl Magnesium 2.2 (1.8-2.4) mg/dl Total Bilirubin 0.3 (0.2-1) mg/dl AST 9 L (15-37) U/L ALT 20 (12-78) U/L Alkaline Phosphatase 88 (45-117) U/L Total Protein 6.0 L (6.4-8.2) gm/dl Albumin 2.9 L (3.4-5.0) gm/dl Globulin 3.1 (2.5-4.0) gm/dl Albumin/Globulin Ratio 0.9 (0.9-2) Nasal Screen MRSA (PCR) (Negative) 07/07/18 07/07/18 07/07/18 Range/Units 14:43 14:28 12:48 WBC 22.47 H (4.8-10.8) K/uL RBC 4.99 (4.2-5.4) M/uL Hgb 13.6 (12.0-16.0) g/dL Hct 44.8 (37-47) % MCV 89.8 (80-100) fL MCH 27.3 (25-34) pg MCHC 30.4 L (32-36) g/dL RDW Std Deviation 51.1 H (36.4-46.3) fL RDW Coeff of Daniela 15.6 H (11.5-14.5) % Plt Count 183 (130-400) K/uL MPV 10.5 H (7.4-10.4) fL Immature Gran % (Auto) 0.3 % Neut % (Auto) 92.1 % Lymph % (Auto) 4.0 % [place] % (Auto) 3.6 % Eos % (Auto) 0.0 % Baso % (Auto) 0.0 % Immature Gran # (Auto) 0.07 H (0.00-0.02) K/uL Neut # (Auto) 20.68 H (1.4-6.5) K/uL Lymph # (Auto) 0.90 L (1.2-3.4) K/uL [place] # (Auto) 0.81 H (0.11-0.59) K/uL Eos # (Auto) 0.00 (0-0.5) K/uL Baso # (Auto) 0.01 (0-0.2) K/uL Sample Site L Radial POC pH 7.11 L* (7.35-7.45) POC pCO2 97 H (35-46) mmHg POC pO2 69 L (80-95) mmHg POC HCO3 31 H (19-24) anayeli/L POC Total CO2 34 H (24-31) mEq/l POC Base Excess 1.0 (-9-1.8) anayeli/L POC ABG O2 Sat 85.0 L (90-95) % Raoul Test Pass O2 Delivery Device POC O2 Rate Minute Ventilation POC FiO2 % Tidal Volume PEEP Sodium (136-145) mmol/L Potassium (3.5-5.1) mmol/L Chloride (98-107) mmol/L Carbon Dioxide (21-32) mmol/L Anion Gap (3-11) BUN (7-18) mg/dl Creatinine (0.6-1.2) mg/dl Est Cr Clr Drug Dosing ml/min Est GFR ( Amer) Est GFR (Non-Af Amer) BUN/Creatinine Ratio (10-20) Glucose (70-99) mg/dl POC Glucose (70-99) Calcium (8.5-10.1) mg/dl Phosphorus (2.5-4.9) mg/dl Magnesium (1.8-2.4) mg/dl Total Bilirubin (0.2-1) mg/dl AST (15-37) U/L ALT (12-78) U/L Alkaline Phosphatase (45-117) U/L Total Protein (6.4-8.2) gm/dl Albumin (3.4-5.0) gm/dl Globulin (2.5-4.0) gm/dl Albumin/Globulin Ratio (0.9-2) Nasal Screen MRSA (PCR) Negative (Negative) Medications Administered Current Inpatient Medications Acetaminophen (Tylenol) 650 mg PO Q4H PRN PRN Reason: Pain Stop: 08/06/18 12:06 Albuterol (Ventolin Hfa) 2 puffs INH Q4H PRN PRN Reason: Shortness Of Breath Or Wheezing Stop: 08/06/18 12:08 Albuterol (Duoneb) 3 ml INH Q8H PRN PRN Reason: SHORT OF BREATH Stop: 08/06/18 12:08 Digoxin (Lanoxin) 0.125 mg PO DAILY@1600 [facility] Stop: 08/07/18 15:59 Diltiazem HCl (Cardizem Cd) 300 mg PO QAM [facility] Stop: 08/07/18 08:59 Last Admin: 07/08/18 07:58 Dose: 300 mg Documented by: Diltiazem HCl (Cardizem Cd) 120 mg PO QAM [facility] Stop: 08/07/18 08:59 Last Admin: 07/08/18 07:58 Dose: 120 mg Documented by: Hydrocortisone Valerate (Westcort 0.2%) 1 appln EXT BID [facility] Stop: 08/06/18 20:59 Last Admin: 07/08/18 08:02 Dose: Not Given Documented by: Lorazepam (Ativan) 0.5 mg PO BID PRN PRN Reason: Anxiety Stop: 08/06/18 12:08 Magnesium Oxide (Mag-Ox) 400 mg PO BID [facility] Stop: 08/07/18 08:59 Last Admin: 07/08/18 09:26 Dose: 400 mg Documented by: Meclizine HCl (Antivert) 25 mg PO TID PRN PRN Reason: dizziness Stop: 08/06/18 12:08 Meloxicam (Mobic) 7.5 mg PO DAILY PRN PRN Reason: Pain Stop: 08/06/18 12:08 Miscellaneous (Order Awaiting Action) 1 ea N/A QS [facility] Stop: 08/06/18 15:59 Last Admin: 07/08/18 08:02 Dose: Not Given Documented by: Miscellaneous (Order Awaiting Action) 1 ea N/A QS [facility] Stop: 08/06/18 15:59 Last Admin: 07/08/18 08:02 Dose: Not Given Documented by: Miscellaneous (Icu Protocol For Hyperglycemia) 1 ea N/A PRN PRN; Protocol PRN Reason: Hyperglycemia Protocol Stop: 07/09/18 17:05 Multivitamins (Multivitamin Tab) 1 tab PO DAILY [facility] Stop: 08/07/18 08:59 Last Admin: 07/08/18 08:00 Dose: 1 tab Documented by: Multivitamins/Minerals (Caltrate Plus) 1 tab PO BID [facility] Stop: 08/07/18 08:59 Last Admin: 07/08/18 09:26 Dose: 1 tab Documented by: Pantoprazole Sodium (Protonix) 40 mg PO QAM [facility] Stop: 08/08/18 08:59 Fluticasone/Salmeterol (Advair Diskus 250/50) 1 puffs INH BID [facility] Stop: 08/06/18 20:59 Last Admin: 07/08/18 07:56 Dose: 1 puffs Documented by: Sertraline HCl (Zoloft) 150 mg PO QAM [facility] Stop: 08/07/18 08:59 Last Admin: 07/08/18 08:00 Dose: 150 mg Documented by: Tiotropium [place] (Spiriva) 1 puffs INH DAILY [facility] Stop: 08/07/18 08:59 Tramadol HCl (Ultram) 50 mg PO Q6H PRN PRN Reason: Pain Stop: 08/06/18 12:08 Last Admin: 07/08/18 05:37 Dose: 50 mg Documented by: Triamterene/HCTZ (Maxzide 37.5/25mg) 1 tab PO QAM [facility] Stop: 08/07/18 08:59 Last Admin: 07/08/18 07:59 Dose: 1 tab Documented by: Warfarin Sodium (Coumadin) 5 mg PO TODAY@1600 [facility] Stop: 07/08/18 16:01 Resident Activity Tracking Resident Involvement: Resident Care Provided Care Provided: Adult Hospital Medicine (ICU)
[2018-07-08] MEDS: FLUTICASONE/SALMETEROL 250/50 (ADVAIR) 14 PUFF/1 INHALER INH SCH ×2 (07:56→20:44)
[2018-07-08] MEDS: dilTIAZem HCL 300 MG CAPCR PO SCH (07:58)
[2018-07-08] MEDS: dilTIAZem HCL 120 MG CAPCR PO SCH (07:58)
[2018-07-08] MEDS: TRIAMTERENE/HCTZ 37.5/25MG TAB PO SCH (07:59)
[2018-07-08] MEDS: SERTRALINE HCL 50 MG TABLET PO SCH (08:00)
[2018-07-08] MEDS: MULTIVITAMIN TAB PO SCH (08:00)
[2018-07-08] MEDS: HYDROCORTISONE VAL 0.2% CRM 15GM TUBE EXT SCH ×2 (08:02→20:45)
--- NOTE | 2018-07-08 08:49 | Cardiology Progress Note ---
Date of Service July 08, 2018 Assessment & Plan (1) Atrial fibrillation: Subjective Pt extubated last night chest tube still in place. She is otherwise doing ok with no complaints. Constitutional: no fever and no chills Eyes: no blind spots Ear, Nose, Mouth, Throat: no post nasal drip Respiratory: no cough and no dyspnea on exertion Cardiovascular: no chest pain and no palpitations Gastrointestinal: no nausea and no vomiting Neurologic: no generalized weakness Physical Exam Vital Signs (Past 24 Hours): Last Vital Signs Temp 37.4 C 07/08/18 03:41 Pulse 109 H 07/08/18 06:01 Resp 22 07/08/18 06:01 BP 148/99 H 07/08/18 06:01 Pulse Ox 96 07/08/18 06:01 aaox3, NAD NC/AT, EOMI Supple No JVD Nrl S1/S2, No murmur CTA b/l no w/r/r soft nt/nd no LE edema b/l skin intact no focal deficits left pectoral incision intact, no hematoma mild ecchymosis left sided chest tube in place Results & Data Laboratory Results Laboratory Results - last 24 hr 07/07/18 07/07/18 07/07/18 12:48 14:28 14:43 WBC 22.47 H RBC 4.99 Hgb 13.6 Hct 44.8 MCV 89.8 MCH 27.3 MCHC 30.4 L RDW Std Deviation 51.1 H RDW Coeff of Daniela 15.6 H Plt Count 183 MPV 10.5 H Immature Gran % (Auto) 0.3 Neut % (Auto) 92.1 Lymph % (Auto) 4.0 [place] % (Auto) 3.6 Eos % (Auto) 0.0 Baso % (Auto) 0.0 Immature Gran # (Auto) 0.07 H Neut # (Auto) 20.68 H Lymph # (Auto) 0.90 L [place] # (Auto) 0.81 H Eos # (Auto) 0.00 Baso # (Auto) 0.01 Sample Site L Radial POC pH 7.11 L* POC pCO2 97 H POC pO2 69 L POC HCO3 31 H POC Total CO2 34 H POC Base Excess 1.0 POC ABG O2 Sat 85.0 L Raoul Test Pass O2 Delivery Device POC O2 Rate Minute Ventilation POC FiO2 Tidal Volume PEEP Sodium Potassium Chloride Carbon Dioxide Anion Gap BUN Creatinine Est Cr Clr Drug Dosing Est GFR ( Amer) Est GFR (Non-Af Amer) BUN/Creatinine Ratio Glucose POC Glucose Calcium Phosphorus Magnesium Total Bilirubin AST ALT Alkaline Phosphatase Total Protein Albumin Globulin Albumin/Globulin Ratio Nasal Screen MRSA (PCR) Negative 07/07/18 07/07/18 07/07/18 14:43 16:14 16:15 WBC RBC Hgb Hct MCV MCH MCHC RDW Std Deviation RDW Coeff of Daniela Plt Count MPV Immature Gran % (Auto) Neut % (Auto) Lymph % (Auto) [place] % (Auto) Eos % (Auto) Baso % (Auto) Immature Gran # (Auto) Neut # (Auto) Lymph # (Auto) [place] # (Auto) Eos # (Auto) Baso # (Auto) Sample Site POC pH POC pCO2 POC pO2 POC HCO3 POC Total CO2 POC Base Excess POC ABG O2 Sat Raoul Test O2 Delivery Device POC O2 Rate Minute Ventilation POC FiO2 Tidal Volume PEEP Sodium 139 Potassium 5.4 H Chloride 105 Carbon Dioxide 31 Anion Gap 3.0 BUN 18 Creatinine 1.38 H Est Cr Clr Drug Dosing 50.4 Est GFR ( Amer) 45.4 Est GFR (Non-Af Amer) 39.2 BUN/Creatinine Ratio 13.3 Glucose 238 H POC Glucose 224 H 210 H Calcium 8.4 L Phosphorus Magnesium 2.2 Total Bilirubin 0.3 AST 9 L ALT 20 Alkaline Phosphatase 88 Total Protein 6.0 L Albumin 2.9 L Globulin 3.1 Albumin/Globulin Ratio 0.9 Nasal Screen MRSA (PCR) 07/07/18 07/07/18 07/07/18 16:47 16:51 23:20 WBC RBC Hgb Hct MCV MCH MCHC RDW Std Deviation RDW Coeff of Daniela Plt Count MPV Immature Gran % (Auto) Neut % (Auto) Lymph % (Auto) [place] % (Auto) Eos % (Auto) Baso % (Auto) Immature Gran # (Auto) Neut # (Auto) Lymph # (Auto) [place] # (Auto) Eos # (Auto) Baso # (Auto) Sample Site R Radial POC pH 7.33 L POC pCO2 55 H POC pO2 133 H POC HCO3 29 H POC Total CO2 31 POC Base Excess 3.0 H POC ABG O2 Sat 99.0 H Raoul Test Pass O2 Delivery Device Ventilator POC O2 Rate 18 Minute Ventilation 8.10 POC FiO2 50 Tidal Volume 450 PEEP 3 Sodium 139 Potassium 5.1 Chloride 108 H Carbon Dioxide 28 Anion Gap 3.0 BUN 21 H Creatinine 1.23 H Est Cr Clr Drug Dosing 56.6 Est GFR ( Amer) 52.2 Est GFR (Non-Af Amer) 45.0 BUN/Creatinine Ratio 16.7 Glucose 184 H POC Glucose 108 H Calcium 8.4 L Phosphorus Magnesium Total Bilirubin AST ALT Alkaline Phosphatase Total Protein Albumin Globulin Albumin/Globulin Ratio Nasal Screen MRSA (PCR) 07/08/18 07/08/18 07/08/18 04:17 04:17 04:25 WBC 13.99 H RBC 4.58 Hgb 12.3 Hct 40.8 MCV 89.1 MCH 26.9 MCHC 30.1 L RDW Std Deviation 50.8 H RDW Coeff of Daniela 15.7 H Plt Count 134 MPV 10.8 H Immature Gran % (Auto) Neut % (Auto) Lymph % (Auto) [place] % (Auto) Eos % (Auto) Baso % (Auto) Immature Gran # (Auto) Neut # (Auto) Lymph # (Auto) [place] # (Auto) Eos # (Auto) Baso # (Auto) Sample Site R Radial POC pH 7.32 L POC pCO2 59 H POC pO2 99 H POC HCO3 30 H POC Total CO2 32 H POC Base Excess 4.0 H POC ABG O2 Sat 97.0 H Raoul Test Pass O2 Delivery Device Cannula POC O2 Rate Minute Ventilation POC FiO2 Tidal Volume PEEP Sodium 139 Potassium 4.4 Chloride 105 Carbon Dioxide 32 Anion Gap 2.0 L BUN 20 H Creatinine 1.03 Est Cr Clr Drug Dosing 68.2 Est GFR ( Amer) 64.7 Est GFR (Non-Af Amer) 55.8 BUN/Creatinine Ratio 19.0 Glucose 126 H POC Glucose Calcium 8.4 L Phosphorus 4.0 Magnesium 2.0 Total Bilirubin AST ALT Alkaline Phosphatase Total Protein Albumin Globulin Albumin/Globulin Ratio Nasal Screen MRSA (PCR)
[2018-07-08] MEDS ORDERED: POTASSIUM CHLORIDE 10 MEQ TABCR PO SCH (09:00)
[2018-07-08] MEDS ORDERED: PANTOprazole 40 MG TAB PO SCH (09:00)
[2018-07-08] MEDS: MAGNESIUM OXIDE 400 MG TAB PO SCH ×2 (09:26→20:45)
[2018-07-08] MEDS: CALCIUM 600MG + VIT D 400 IU TAB PO SCH ×2 (09:26→20:45)
[2018-07-08] MEDS: SODIUM CHLORIDE 0.9% 1000ML 1,000 ML IV SCH (09:27)
--- NOTE | 2018-07-08 13:58 | XRay Report ---
XR chest 1V portable CLINICAL HISTORY: 67 years-old Female presenting with shortness of breath. TECHNIQUE: Portable upright AP view of the chest was obtained. COMPARISON: 07/08/2018 at 6:45 AM. FINDINGS: Left subclavian pacer with leads to the coronary sinus and right ventricular apex. Atherosclerosis of the aortic arch. Cardiac silhouette mildly enlarged. Pulmonary vasculature remains mildly prominent with bronchial wall cuffing. Added density of the perihilar lungs with reticular opacities with a mid to basilar predominance. Small bilateral pleural effusions. Previously noted left apical pneumothora x again evident with the left pleural pigtail catheter in place though slight retracted from prior. T he pneumothorax is unchanged in size. Several external leads overlie the lower left hemithorax degrad ing evaluation. Degenerative changes of the thoracic spine. IMPRESSION: 1. Cardiomegaly with volume overload and congestive change. Suspected mild pulmonary edema, which is stable to slightly worse from prior. 2. Bilateral small pleural effusions new from prior. 3. Stable small left apical pneumothorax with the left pleural drain in place though slightly retrac jona from prior. Electronically signed by: Denzel Weller M.D. 07/08/2018 1:56 PM
[2018-07-08] MEDS ORDERED: WARFARIN SOD 5 MG TAB PO ONE (16:00)
[2018-07-08] MEDS: ACETAMINOPHEN 325 MG TAB PO PRN ×2 (16:00→19:59)
[2018-07-08] MEDS ORDERED: DIGOXIN 0.125 MG TAB PO SCH (16:00)
[2018-07-08] MEDS: DIGOXIN 0.125 MG TAB PO SCH (16:02)
--- NOTE | 2018-07-08 17:02 | Hospitalist Progress Note ---
Date of Service July 08, 2018 Assessment & Plan (1) Acute on chronic respiratory failure with hypoxia and hypercapnia: (2) Pneumothorax on left: (3) S/P biventricular cardiac pacemaker procedure: per DIN[facility] Jimenez notes: POD #1 biventricular cardiac pacemaker placed with AVN by Dr. Araiza Secondary to atrial fibrillation with RVR despite AV anna blocking agents Procedure complicated by large left-sided pneumothorax 50%, ABG pH 7.11, CO2 97, HCO3 31 Patient was intubated and transferred to ICU and underwent left-sided chest tube insertion s/p extubation repeat CXR significant improvement of pneumothorax further management per Dr. Mercado (4) Hyperkalemia: d/c supplements resolved (5) Hyperglycemia: ICU hyperglycemia protocol A1C 5.9 in 03/2018 A1C : 6.2 (6) Atrial fibrillation: s/p Biv Pacemaker placement by Dr. Araiza POD #1 usual Diltiazem, Digoxin resumed (7) CHF (congestive heart failure): euvolemic last echo Date: 05/18/18: LVEF 50-54%. Mild inferior wall HK. Basal septum is thickened and angulated consistent with sigmoid septum. Masked dyssynergy of the interventricular septum and apical septum. Moderately increased LV wall thickness. No significant valvular disease. (8) CKD (chronic kidney disease), stage III: baseline Cr 1.1 mild elevation in Cr to 1.39 received IV fluids, now back to baseline (9) COPD (chronic obstructive pulmonary disease): severe COPD on chronic 4L O2 resume trelegy (or house stock ICS/LABA/anticholinergic) when able (10) Depression: on zoloft (11) DVT prophylaxis: Disposition: to be determined Follow up: PCP Dr. Bhatti upon discharge Subjective ff up for pneumothorax s/p PM placement seen resting in chair comfortable in good spirits denies SOB, chest pain, dizziness, palpitations, nausea no other symptoms Physical Exam Vital Signs (Past 24 Hours): Last Vital Signs Temp 36.8 C 07/08/18 16:00 Pulse 117 H 07/08/18 16:02 Resp 33 H 07/08/18 16:00 BP 132/89 07/08/18 16:00 Pulse Ox 94 07/08/18 16:00 Physical Exam: General- oriented x 3, not in distress, speaks in sentences with no effort or accessory muscle use Eyes- anicteric Neck- no JVD Lungs- clear BS BL no rales/wheezes Heart-mildly tachycardic 110s, regular rhythm; no murmurs Abdomen- normal bowel sounds, nondistended, soft, nontender Extremities- no pretibial edema, no calf tenderness Neuro- alert, oriented x 3; no gross focal neurologic deficits Skin- warm & dry Results & Data Laboratory Results Laboratory Results - last 24 hr 07/07/18 07/07/18 07/07/18 14:28 16:47 16:51 WBC RBC Hgb Hct MCV MCH MCHC RDW Std Deviation RDW Coeff of Daniela Plt Count MPV Sample Site R Radial POC pH 7.33 L POC pCO2 55 H POC pO2 133 H POC HCO3 29 H POC Total CO2 31 POC Base Excess 3.0 H POC ABG O2 Sat 99.0 H Raoul Test Pass O2 Delivery Device Ventilator POC O2 Rate 18 Minute Ventilation 8.10 POC FiO2 50 Tidal Volume 450 PEEP 3 Sodium 139 Potassium 5.1 Chloride 108 H Carbon Dioxide 28 Anion Gap 3.0 BUN 21 H Creatinine 1.23 H Est Cr Clr Drug Dosing 56.6 Est GFR ( Amer) 52.2 Est GFR (Non-Af Amer) 45.0 BUN/Creatinine Ratio 16.7 Glucose 184 H POC Glucose Calcium 8.4 L Phosphorus Magnesium Nasal Screen MRSA (PCR) Negative Digoxin 07/07/18 07/08/18 07/08/18 23:20 04:17 04:17 WBC 13.99 H RBC 4.58 Hgb 12.3 Hct 40.8 MCV 89.1 MCH 26.9 MCHC 30.1 L RDW Std Deviation 50.8 H RDW Coeff of Daniela 15.7 H Plt Count 134 MPV 10.8 H Sample Site POC pH POC pCO2 POC pO2 POC HCO3 POC Total CO2 POC Base Excess POC ABG O2 Sat Raoul Test O2 Delivery Device POC O2 Rate Minute Ventilation POC FiO2 Tidal Volume PEEP Sodium 139 Potassium 4.4 Chloride 105 Carbon Dioxide 32 Anion Gap 2.0 L BUN 20 H Creatinine 1.03 Est Cr Clr Drug Dosing 68.2 Est GFR ( Amer) 64.7 Est GFR (Non-Af Amer) 55.8 BUN/Creatinine Ratio 19.0 Glucose 126 H POC Glucose 108 H Calcium 8.4 L Phosphorus 4.0 Magnesium 2.0 Nasal Screen MRSA (PCR) Digoxin 07/08/18 07/08/18 07/08/18 04:25 11:10 11:17 WBC RBC Hgb Hct MCV MCH MCHC RDW Std Deviation RDW Coeff of Daniela Plt Count MPV Sample Site R Radial POC pH 7.32 L POC pCO2 59 H POC pO2 99 H POC HCO3 30 H POC Total CO2 32 H POC Base Excess 4.0 H POC ABG O2 Sat 97.0 H Raoul Test Pass O2 Delivery Device Cannula POC O2 Rate Minute Ventilation POC FiO2 Tidal Volume PEEP Sodium Potassium Chloride Carbon Dioxide Anion Gap BUN Creatinine Est Cr Clr Drug Dosing Est GFR ( Amer) Est GFR (Non-Af Amer) BUN/Creatinine Ratio Glucose POC Glucose 147 H Calcium Phosphorus Magnesium Nasal Screen MRSA (PCR) Digoxin 0.8 07/08/18 16:15 WBC RBC Hgb Hct MCV MCH MCHC RDW Std Deviation RDW Coeff of Daniela Plt Count MPV Sample Site POC pH POC pCO2 POC pO2 POC HCO3 POC Total CO2 POC Base Excess POC ABG O2 Sat Raoul Test O2 Delivery Device POC O2 Rate Minute Ventilation POC FiO2 Tidal Volume PEEP Sodium Potassium Chloride Carbon Dioxide Anion Gap BUN Creatinine Est Cr Clr Drug Dosing Est GFR ( Amer) Est GFR (Non-Af Amer) BUN/Creatinine Ratio Glucose POC Glucose 129 H Calcium Phosphorus Magnesium Nasal Screen MRSA (PCR) Digoxin (1) Atrial fibrillation Atrial fibrillation type: permanent Qualified Code(s): I48.2 - Chronic atrial fibrillation (2) CHF (congestive heart failure) Heart failure type: diastolic Heart failure chronicity: chronic Qualified Code(s): I50.32 - Chronic diastolic (congestive) heart failure (3) COPD (chronic obstructive pulmonary disease) COPD type: emphysema Emphysema type: unspecified Qualified Code(s): J43.9 - Emphysema, unspecified (4) Depression Depression Type: major depressive disorder Major depression recurrence: unspecified whether recurrent Active/Remission status: remission status unspecified Qualified Code(s): F32.9 - Major depressive disorder, single episode, unspecified
[2018-07-09] MEDS: ACETAMINOPHEN 325 MG TAB PO PRN (03:46)
[2018-07-09 04:16] LABS: INR 1.1 (0.9-1.1)
--- NOTE | 2018-07-09 06:48 | Critical Care Progress Note ---
Date of Service July 09, 2018 Assessment & Plan (1) Admitted to intensive care unit: Reason Critically Ill: Perioperatively developed a left pneumothorax requiring intubation and chest tube placement Neuro - CAM ICU: Negative Cardiac - Postop day 2 from pacemaker placement Nonsustained ventricular tachycardia when sitting upright -Can consider beta-blockade, patient's pre-existing pulmonary disease should still be responsive to pulmonary toilet medications, risk benefit risk of arrhythmia outweighs minimally decreased responsiveness to beta pulmonary agonists Respiratory - COPD on chronic supplemental O2 of 3-4 L/min via nasal cannula at home Resume home medications Iatrogenic pneumothorax: -Persistent air leak: -Consult thoracic surgery for need for possible intervention question ruptured bleb, continue 4 on 4 off wall suction GI - Chronic GERD without esophagitis Continue pantoprazole RENAL/LYTES - Stage III chronic kidney disease Creatinine 0.92 - Discontinue Vuong ENDO - No history of diabetes mellitus No history of a hypothyroidism Follow glucose per protocol HEME - DVT prophylaxis: Lovenox as INR is not therapeutic Continue Home Warfarin ID - Leukocytosis: Nonspecific, resolving LINES/IV ACCESS - Peripheral IVs in place No indication for central line at this time Continue to monitor DVT PROPHYLAXIS - Chemical prophylaxis per electrophysiology Increase ambulations. Patient's critical care needs have largely resolved. Patient would be stable for downgrade out of ICU Patient was discussed in multidisciplinary rounds, I discussed the patient with Dr. Carlton Supervising Physician Co-Signing Physician Notes Dr. Kincaid was resident physician during care of patient. I separately evaluated patient for pend[place] portions of the history and the exam. I was present during the critical portion of medical decision making, and I discussed the case with the resident. I generally agree with the findings and plan. I discussed the case with Dr. Espinal, patient was discussed in multidisciplinary rounds. Patient is stable for downgrade to telemetry status. Subjective Patient sitting upright in her chair eating breakfast this am in NAD. Pt reports no acute events overnight, and that she is recovering well. Pt is voiding on her own, no bm yt,tolerating her diet and sleeping well. No acute concerns at present. Physical Exam Vital Signs (Past 24 Hours): Last Vital Signs Temp 37.6 C H 07/09/18 03:52 Pulse 104 H 07/09/18 06:00 Resp 18 07/09/18 06:00 BP 108/71 07/09/18 06:00 Pulse Ox 97 07/09/18 06:00 Physical Exam: Gen:Wd/Wn overweight female in nad EYES: EOMI Neck: Trachea midline, normal to inspection, -ve jvd Chest: CTAB/L, no wrr GI: Nl BS, soft, nontender, non distended Ext: moves all extremities, no calf pain Skin: incision clean dry and intact, left chest tube in place grade 1 air leak Results & Data Laboratory Results 07/09/18 07:54 07/09/18 07:54 07/09/18 07/09/18 07/09/18 Range/Units 08:21 07:54 07:54 WBC 12.24 H (4.8-10.8) K/uL RBC 4.45 (4.2-5.4) M/uL Hgb 12.0 (12.0-16.0) g/dL Hct 39.5 (37-47) % MCV 88.8 (80-100) fL MCH 27.0 (25-34) pg MCHC 30.4 L (32-36) g/dL RDW Std Deviation 50.1 H (36.4-46.3) fL RDW Coeff of Daniela 15.5 H (11.5-14.5) % Plt Count 114 L (130-400) K/uL MPV 11.0 H (7.4-10.4) fL Immature Gran % (Auto) 0.2 % Neut % (Auto) 86.3 % Lymph % (Auto) 5.0 % [place] % (Auto) 6.3 % Eos % (Auto) 2.0 % Baso % (Auto) 0.2 % Immature Gran # (Auto) 0.03 H (0.00-0.02) K/uL Neut # (Auto) 10.56 H (1.4-6.5) K/uL Lymph # (Auto) 0.61 L (1.2-3.4) K/uL [place] # (Auto) 0.77 H (0.11-0.59) K/uL Eos # (Auto) 0.25 (0-0.5) K/uL Baso # (Auto) 0.02 (0-0.2) K/uL PT (9.0-12.0) Seconds INR (0.9-1.1) Sodium 140 (136-145) mmol/L Potassium 3.6 D (3.5-5.1) mmol/L Chloride 99 (98-107) mmol/L Carbon Dioxide 36 H (21-32) mmol/L Anion Gap 5.0 (3-11) BUN 10 D (7-18) mg/dl Creatinine 0.92 (0.6-1.2) mg/dl Est Cr Clr Drug Dosing 76.4 ml/min Est GFR ( Amer) 74.2 Est GFR (Non-Af Amer) 64.0 BUN/Creatinine Ratio 10.6 (10-20) Glucose 144 H (70-99) mg/dl POC Glucose (70-99) Calcium 8.6 (8.5-10.1) mg/dl Phosphorus 2.8 D (2.5-4.9) mg/dl Magnesium 2.1 (1.8-2.4) mg/dl Digoxin 0.8 (0.8-2.0) ng/ml 07/09/18 07/08/18 07/08/18 Range/Units 03:58 20:47 16:15 WBC (4.8-10.8) K/uL RBC (4.2-5.4) M/uL Hgb (12.0-16.0) g/dL Hct (37-47) % MCV (80-100) fL MCH (25-34) pg MCHC (32-36) g/dL RDW Std Deviation (36.4-46.3) fL RDW Coeff of Daniela (11.5-14.5) % Plt Count (130-400) K/uL MPV (7.4-10.4) fL Immature Gran % (Auto) % Neut % (Auto) % Lymph % (Auto) % [place] % (Auto) % Eos % (Auto) % Baso % (Auto) % Immature Gran # (Auto) (0.00-0.02) K/uL Neut # (Auto) (1.4-6.5) K/uL Lymph # (Auto) (1.2-3.4) K/uL [place] # (Auto) (0.11-0.59) K/uL Eos # (Auto) (0-0.5) K/uL Baso # (Auto) (0-0.2) K/uL PT 11.0 (9.0-12.0) Seconds INR 1.1 (0.9-1.1) Sodium (136-145) mmol/L Potassium (3.5-5.1) mmol/L Chloride (98-107) mmol/L Carbon Dioxide (21-32) mmol/L Anion Gap (3-11) BUN (7-18) mg/dl Creatinine (0.6-1.2) mg/dl Est Cr Clr Drug Dosing ml/min Est GFR ( Amer) Est GFR (Non-Af Amer) BUN/Creatinine Ratio (10-20) Glucose (70-99) mg/dl POC Glucose 153 H 129 H (70-99) Calcium (8.5-10.1) mg/dl Phosphorus (2.5-4.9) mg/dl Magnesium (1.8-2.4) mg/dl Digoxin (0.8-2.0) ng/ml Medications Administered Current Inpatient Medications Acetaminophen (Tylenol) 650 mg PO Q4H PRN PRN Reason: Pain Stop: 08/06/18 12:06 Last Admin: 07/09/18 03:46 Dose: 650 mg Documented by: Albuterol (Ventolin Hfa) 2 puffs INH Q4H PRN PRN Reason: Shortness Of Breath Or Wheezing Stop: 08/06/18 12:08 Albuterol (Duoneb) 3 ml INH Q8H PRN PRN Reason: SHORT OF BREATH Stop: 08/06/18 12:08 Bisacodyl (Dulcolax) 5 mg PO DAILY PRN PRN Reason: CONSTIPATION Stop: 08/08/18 09:00 Digoxin (Lanoxin) 0.125 mg PO DAILY@1600 [facility] Stop: 08/07/18 15:59 Last Admin: 07/08/18 16:02 Dose: 0.125 mg Documented by: Diltiazem HCl (Cardizem Cd) 300 mg PO QAM [facility] Stop: 08/07/18 08:59 Last Admin: 07/09/18 07:30 Dose: 300 mg Documented by: Diltiazem HCl (Cardizem Cd) 120 mg PO QAM [facility] Stop: 08/07/18 08:59 Last Admin: 07/09/18 07:30 Dose: 120 mg Documented by: Docusate Sodium (Colace) 100 mg PO BID PRN PRN Reason: CONSTIPATION Stop: 08/08/18 09:01 Enoxaparin Sodium (Lovenox) 100 mg SQ BID [facility] Stop: 08/08/18 09:14 Last Admin: 07/09/18 09:59 Dose: 100 mg Documented by: Hydrocortisone Valerate (Westcort 0.2%) 1 appln EXT BID [facility] Stop: 08/06/18 20:59 Last Admin: 07/09/18 07:33 Dose: Not Given Documented by: Lorazepam (Ativan) 0.5 mg PO BID PRN PRN Reason: Anxiety Stop: 08/06/18 12:08 Magnesium Oxide (Mag-Ox) 400 mg PO BID [facility] Stop: 08/07/18 08:59 Last Admin: 07/09/18 07:31 Dose: 400 mg Documented by: Meclizine HCl (Antivert) 25 mg PO TID PRN PRN Reason: dizziness Stop: 08/06/18 12:08 Meloxicam (Mobic) 7.5 mg PO DAILY PRN PRN Reason: Pain Stop: 08/06/18 12:08 Miscellaneous (Order Awaiting Action) 1 ea N/A QS [facility] Stop: 08/06/18 15:59 Last Admin: 07/09/18 07:29 Dose: Not Given Documented by: Miscellaneous (Order Awaiting Action) 1 ea N/A QS [facility] Stop: 08/06/18 15:59 Last Admin: 07/09/18 07:29 Dose: Not Given Documented by: Miscellaneous (Icu Protocol For Hyperglycemia) 1 ea N/A PRN PRN; Protocol PRN Reason: Hyperglycemia Protocol Stop: 07/09/18 17:05 Multivitamins (Multivitamin Tab) 1 tab PO DAILY [facility] Stop: 08/07/18 08:59 Last Admin: 07/09/18 07:31 Dose: 1 tab Documented by: Multivitamins/Minerals (Caltrate Plus) 1 tab PO BID [facility] Stop: 08/07/18 08:59 Last Admin: 07/09/18 07:30 Dose: 1 tab Documented by: Pantoprazole Sodium (Protonix) 40 mg PO QAM [facility] Stop: 08/08/18 08:59 Last Admin: 07/09/18 07:31 Dose: 40 mg Documented by: Polyethylene Glycol (Miralax Powder Packet) 17 gm PO DAILY PRN PRN Reason: CONSTIPATION Stop: 08/08/18 09:00 Fluticasone/Salmeterol (Advair Diskus 250/50) 1 puffs INH BID [facility] Stop: 08/06/18 20:59 Last Admin: 07/09/18 07:30 Dose: 1 puffs Documented by: Sertraline HCl (Zoloft) 150 mg PO QAM [facility] Stop: 08/07/18 08:59 Last Admin: 07/09/18 07:32 Dose: 150 mg Documented by: Tiotropium [place] (Spiriva) 1 puffs INH DAILY [facility] Stop: 08/07/18 08:59 Last Admin: 07/09/18 07:32 Dose: 1 puffs Documented by: Tramadol HCl (Ultram) 50 mg PO Q6H PRN PRN Reason: Pain Stop: 08/06/18 12:08 Last Admin: 07/08/18 23:23 Dose: 50 mg Documented by: Triamterene/HCTZ (Maxzide 37.5/25mg) 1 tab PO QAM [facility] Stop: 08/07/18 08:59 Last Admin: 07/09/18 07:31 Dose: 1 tab Documented by: Warfarin Sodium (Coumadin) 2.5 mg PO MoWe@1600 [facility] Stop: 08/11/18 15:59 Warfarin Sodium (Coumadin) 5 mg PO SuTuThFrSa@1600 [facility] Stop: 08/08/18 15:59 Resident Activity Tracking Resident Involvement: Resident Care Provided Care Provided: Adult Hospital Medicine (ICU)
[2018-07-09] MEDS: dilTIAZem HCL 120 MG CAPCR PO SCH (07:30)
[2018-07-09] MEDS: dilTIAZem HCL 300 MG CAPCR PO SCH (07:30)
[2018-07-09] MEDS: FLUTICASONE/SALMETEROL 250/50 (ADVAIR) 14 PUFF/1 INHALER INH SCH ×2 (07:30→19:53)
[2018-07-09] MEDS: CALCIUM 600MG + VIT D 400 IU TAB PO SCH ×2 (07:30→19:54)
[2018-07-09] MEDS: MULTIVITAMIN TAB PO SCH (07:31)
[2018-07-09] MEDS: PANTOprazole 40 MG TAB PO SCH (07:31)
[2018-07-09] MEDS: MAGNESIUM OXIDE 400 MG TAB PO SCH ×2 (07:31→19:56)
[2018-07-09] MEDS: TRIAMTERENE/HCTZ 37.5/25MG TAB PO SCH (07:31)
[2018-07-09] MEDS: SERTRALINE HCL 50 MG TABLET PO SCH (07:32)
[2018-07-09] MEDS: TIOTROPIUM BROMIDE 5 PUFF/90 MCG INH INH SCH (07:32)
[2018-07-09] MEDS: HYDROCORTISONE VAL 0.2% CRM 15GM TUBE EXT SCH ×2 (07:33→19:52)
[2018-07-09 08:28] LABS: Basophils # (auto) 0.02 K/uL (0-0.2); Basophils % (auto) 0.2 %; Eosinophils # (auto) 0.25 K/uL (0-0.5); Hematocrit (blood only) 39.5 % (37-47); Immature Granulocytes # (auto) 0.03 K/uL (0.00-0.02); Immature Granulocytes % (auto) 0.2 %; Lymphocytes # (auto) 0.61 K/uL (1.2-3.4); Mean Corpuscular Hgb Conc 30.4 g/dL (32-36); Mean Corpuscular Volume 88.8 fL (80-100); Monocytes # (auto) 0.77 K/uL (0.11-0.59); Monocytes % (auto) 6.3 %; Neutrophils # (auto) 10.56 K/uL (1.4-6.5); Neutrophils % (auto) 86.3 %; Platelet Count 114 K/uL (130-400); RDW Coefficient of Variation 15.5 % (11.5-14.5); RDW Standard Deviation 50.1 fL (36.4-46.3); Red Blood Count 4.45 M/uL (4.2-5.4); White Blood Count 12.24 K/uL (4.8-10.8)
--- NOTE | 2018-07-09 08:43 | Anesthesiology Progress Note ---
Date of Service July 09, 2018 Subjective The patient is s/p BiV pacemaker insertion POD#2. The patient was sitting in her chair eating breakfast. The patient states feeling much better. Her breathing has improved, and she has been ambulating. She seemed to be in good spirits. I gave her a brief summary of events after her procedure. She was very thankful of the care she received. Physical Exam Vital Signs Last Vital Signs Temp 97.9 F 07/09/18 08:00 Pulse 111 H 07/09/18 08:30 Resp 24 07/09/18 08:30 BP 139/83 07/09/18 08:02 Pulse Ox 97 07/09/18 08:30 Results & Data Medications Administered Acetaminophen (Tylenol) 650 mg PO Q4H PRN PRN Reason: Pain Stop: 08/06/18 12:06 Last Admin: 07/09/18 03:46 Dose: 650 mg Documented by: [id number] Admin: 07/08/18 19:59 Dose: 650 mg Documented by: [id number] Admin: 07/08/18 16:00 Dose: 650 mg Documented by: [id number] Digoxin (Lanoxin) 0.125 mg PO DAILY@1600 COUNTS [facility]CLUDE 234 BEDS AT [facility] Stop: 08/07/18 15:59 Last Admin: 07/08/18 16:02 Dose: 0.125 mg Documented by: [id number] Diltiazem HCl (Cardizem Cd) 300 mg PO QAM COUNTS INCLUDE 234 BEDS AT THE [facility] Stop: 08/07/18 08:59 Last Admin: 07/09/18 07:30 Dose: 300 mg Documented by: [id number] Admin: 07/08/18 07:58 Dose: 300 mg Documented by: [id number] Diltiazem HCl (Cardizem Cd) 120 mg PO QAM COUNTS INCLUDE 234 BEDS AT [facility] Stop: 08/07/18 08:59 Last Admin: 07/09/18 07:30 Dose: 120 mg Documented by: [id number] Admin: 07/08/18 07:58 Dose: 120 mg Documented by: [id number] Hydrocortisone Valerate (Westcort 0.2%) 1 appln EXT BID COUNTS INCLUDE 234 BEDS AT THE [facility] Stop: 08/06/18 20:59 Last Admin: 07/09/18 07:33 Dose: Not Given Documented by: [id number] Admin: 07/08/18 20:45 Dose: Not Given Documented by: [id number] Admin: 07/08/18 08:02 Dose: Not Given Documented by: [id number] Admin: 07/07/18 22:05 Dose: Not Given Documented by: [id number] Magnesium Oxide (Mag-Ox) 400 mg PO BID [facility] Stop: 08/07/18 08:59 Last Admin: 07/09/18 07:31 Dose: 400 mg Documented by: [id number] Admin: 07/08/18 20:45 Dose: 400 mg Documented by: [id number] Admin: 07/08/18 09:26 Dose: 400 mg Documented by: [id number] Miscellaneous (Order Awaiting Action) 1 ea N/A QS [facility] Stop: 08/06/18 15:59 Last Admin: 07/09/18 07:29 Dose: Not Given Documented by: [id number] Admin: 07/09/18 00:05 Dose: Not Given Documented by: [id number] Admin: 07/08/18 16:02 Dose: Not Given Documented by: [id number] Admin: 07/08/18 08:02 Dose: Not Given Documented by: [id number] Admin: 07/08/18 03:50 Dose: Not Given Documented by: [id number] Admin: 07/07/18 17:39 Dose: Not Given Documented by: [id number] Kimber (Order Awaiting Action) 1 ea N/A QS [facility] Stop: 08/06/18 15:59 Last Admin: 07/09/18 07:29 Dose: Not Given Documented by: [id number] Admin: 07/09/18 00:05 Dose: Not Given Documented by: [id number] Admin: 07/08/18 16:02 Dose: Not Given Documented by: [id number] Admin: 07/08/18 08:02 Dose: Not Given Documented by: [id number] Admin: 07/08/18 03:51 Dose: Not Given Documented by: [id number] Admin: 07/07/18 17:39 Dose: Not Given Documented by: [id number] Multivitamins (Multivitamin Tab) 1 tab PO DAILY [facility] Stop: 08/07/18 08:59 Last Admin: 07/09/18 07:31 Dose: 1 tab Documented by: [id number] Admin: 07/08/18 08:00 Dose: 1 tab Documented by: [id number] Multivitamins/Minerals (Caltrate Plus) 1 tab PO BID [facility] Stop: 08/07/18 08:59 Last Admin: 07/09/18 07:30 Dose: 1 tab Documented by: [id number] Admin: 07/08/18 20:45 Dose: 1 tab Documented by: [id number] Admin: 07/08/18 09:26 Dose: 1 tab Documented by: [id number] Pantoprazole Sodium (Protonix) 40 mg PO QAM COUNTS INCLUDE 234 BEDS AT [facility] Stop: 08/08/18 08:59 Last Admin: 07/09/18 07:31 Dose: 40 mg Documented by: [id number] Fluticasone/Salmeterol (Advair Diskus 250/50) 1 puffs INH BID COUNTS INCLUDE 234 BEDS AT [facility] Stop: 08/06/18 20:59 Last Admin: 07/09/18 07:30 Dose: 1 puffs Documented by: [id number] Admin: 07/08/18 20:44 Dose: 1 puffs Documented by: [id number] Admin: 07/08/18 07:56 Dose: 1 puffs Documented by: [id number] [facility]ine [facility]ft) [facility] [place] Stop: 08/07/18 08:59 Last Admin: 07/09/18 07:32 Dose: 150 mg Documented by: [id number] Admin: 07/08/18 08:00 Dose: 150 mg Documented by: [id number] Tiotropium [place] (Spiriva) 1 puffs INH DAILY COUNTS INCLUDE 234 BEDS AT [facility] Stop: 08/07/18 08:59 Last Admin: 07/09/18 07:32 Dose: 1 puffs Documented by: [id number] Tramadol HCl (Ultram) 50 mg PO Q6H PRN PRN Reason: Pain Stop: 08/06/18 12:08 Last Admin: 07/08/18 23:23 Dose: 50 mg Documented by: [id number] Admin: 07/08/18 13:05 Dose: 50 mg Documented by: [id number] Admin: 07/08/18 05:37 Dose: 50 mg Documented by: [id number] Admin: 07/08/18 00:20 Dose: 50 mg Documented by: [id number] Triamterene/HCTZ (Maxzide 37.5/25mg) [facility] [place] Stop: 08/07/18 08:59 Last Admin: 07/09/18 07:31 Dose: 1 tab Documented by: [id number] Admin: 07/08/18 07:59 Dose: 1 tab Documented by: [id number]
--- NOTE | 2018-07-09 08:51 | XRay Report ---
XR chest 1V portable CLINICAL HISTORY: Pneumothorax COMPARISON STUDY: 07/08/2018 FINDINGS: The heart remains mildly enlarged. There are trace pleural effusions. There are minor left basilar airspace opacities likely atelectatic. There is a left subclavian dual-chamber central venous pacemaker. There is a difficult to visualize left apical pneumothorax, similar in size to the[preced ing study. There is a left-sided pleural drain, unchanged in position. IMPRESSION: 1. Difficult to visualize, but persistent left apical pneumothorax, similar in size to the preceding study 2. Cardiomegaly and trace bilateral pleural effusions 3. Improving pulmonary vascular congestion 4. A left-sided pleural drain is again visualized. Electronically signed by: Issa Aviles M.D. 07/09/2018 8:50 AM
[2018-07-09] MEDS ORDERED: BISACODYL 5 MG TABEC PO PRN (09:01)
[2018-07-09] MEDS ORDERED: POLYETHYLENE (MIRALAX) 17 GM PACK PO PRN (09:01)
[2018-07-09] MEDS ORDERED: DOCUSATE SODIUM 100 MG CAP PO PRN (09:02)
[2018-07-09 09:03] LABS: BUN Creatinine Ratio 10.6 (10-20); Calcium 8.6 mg/dl (8.5-10.1); Creatinine Clr Calc Pharmacy 76.4 ml/min; Est GFR (African American) 74.2; Magnesium 2.1 mg/dl (1.8-2.4); Phosphorus 2.8 mg/dl (2.5-4.9); Potassium 3.6 mmol/L (3.5-5.1)
[2018-07-09] MEDS ORDERED: METOPROLOL TARTRATE 1 MG/ML VIAL IV ONE (09:57)
[2018-07-09] MEDS: ENOXAPARIN 100 MG/1ML SYR SQ SCH ×2 (09:59→19:54)
--- NOTE | 2018-07-09 14:20 | Hospitalist Progress Note ---
Date of Service July 09, 2018 Assessment & Plan (1) Acute on chronic respiratory failure with hypoxia and hypercapnia: Has history of severe COPD on 4 L of oxygen at home Developed acute respiratory failure with pneumothorax during placement of pacemaker Intubated and the chest tube was placed Now extubated and continues to have leak from chest tube site Thoracic surgery has been consulted (2) Pneumothorax on left: As above Await thoracic surgery input and recommendation (3) S/P biventricular cardiac pacemaker procedure: POD #2 biventricular cardiac pacemaker placed with AVN by Dr. Araiza Secondary to atrial fibrillation with RVR despite AV anna blocking agents Procedure complicated by large left-sided pneumothorax 50%, ABG pH 7.11, CO2 97, HCO3 31 Patient was intubated and transferred to ICU and underwent left-sided chest tube insertion Appreciate extractor puller input and recommendation (4) Hyperkalemia: d/c supplements resolved (5) Hyperglycemia: ICU hyperglycemia protocol A1C 5.9 in 03/2018 A1C : 6.2 (6) Atrial fibrillation: s/p Biv Pacemaker placement by Dr. Araiza POD #1 usual Diltiazem, Digoxin resumed (7) CHF (congestive heart failure): euvolemic last echo Date: 05/18/18: LVEF 50-54%. Mild inferior wall HK. Basal septum is thickened and angulated consistent with sigmoid septum. Masked dyssynergy of the interventricular septum and apical septum. Moderately increased LV wall thickness. No significant valvular disease. Denies any increasing shortness of breath (8) CKD (chronic kidney disease), stage III: baseline Cr 1.1 mild elevation in Cr to 1.39 received IV fluids, now back to baseline (9) COPD (chronic obstructive pulmonary disease): severe COPD on chronic 4L O2 resume trelegy (or house stock ICS/LABA/anticholinergic) when able Shortness of breath is minimally improved (10) Depression: on zoloft (11) DVT prophylaxis: Disposition: to be determined Follow up: PCP Dr. Bhatti upon discharge Subjective 07/09 Patient was seen and examined in the ICU Admitted for elective pacemaker placement for uncontrolled atrial fibrillation Complicated by pneumothorax paravertebrally and required intubation and chest tube insertion Now extubated but having ongoing hemolytic from the chest tube site Denies any chest pain and/or increasing shortness of breath Physical Exam Vital Signs (Past 24 Hours): Last Vital Signs Temp 37.3 C 07/09/18 12:00 Pulse 100 H 07/09/18 14:01 Resp 31 H 07/09/18 14:01 BP 107/80 07/09/18 14:01 Pulse Ox 96 07/09/18 14:01 Physical Exam: Minimal distress at rest due to shortness of breath Constitutional: + ill appearing Eyes: PERRL, conjunctivae normal, anicteric sclerae ENMT: external ear and nose normal, oropharynx normal Neck: trachea midline, no thyromegaly Respiratory: + respiratory distress Auscultation: + diminished lung sounds, + crackles (Minimal bibasilar crackles) and + wheezes (Occasional wheezing bilaterally) Cardiovascular: Heart Sounds: normal S1 and normal S2 Gastrointestinal (Abdomen): Inspection/Auscultation: abdomen normal to inspection and normal bowel sounds Neurologic: Alert, awake and oriented x3 Results & Data Laboratory Results Short CBC 07/09/18 Range/Units 07:54 WBC 12.24 H (4.8-10.8) K/uL Hgb 12.0 (12.0-16.0) g/dL Hct 39.5 (37-47) % Plt Count 114 L (130-400) K/uL BMP 07/09/18 07:54 Sodium 140 Potassium 3.6 D Chloride 99 Carbon Dioxide 36 H BUN 10 D Creatinine 0.92 Glucose 144 H Calcium 8.6 Medications Administered Current Inpatient Medications Acetaminophen (Tylenol) 650 mg PO Q4H PRN PRN Reason: Pain Stop: 08/06/18 12:06 Last Admin: 07/09/18 03:46 Dose: 650 mg Documented by: Albuterol (Ventolin Hfa) 2 puffs INH Q4H PRN PRN Reason: Shortness Of Breath Or Wheezing Stop: 08/06/18 12:08 Albuterol (Duoneb) 3 ml INH Q8H PRN PRN Reason: SHORT OF BREATH Stop: 08/06/18 12:08 Bisacodyl (Dulcolax) 5 mg PO DAILY PRN PRN Reason: CONSTIPATION Stop: 08/08/18 09:00 Digoxin (Lanoxin) 0.125 mg PO DAILY@1600 [facility] Stop: 08/07/18 15:59 Last Admin: 07/08/18 16:02 Dose: 0.125 mg Documented by: Diltiazem HCl (Cardizem Cd) 300 mg PO QAM [facility] Stop: 08/07/18 08:59 Last Admin: 07/09/18 07:30 Dose: 300 mg Documented by: Diltiazem HCl (Cardizem Cd) 120 mg PO QAM [facility] Stop: 08/07/18 08:59 Last Admin: 07/09/18 07:30 Dose: 120 mg Documented by: Docusate Sodium (Colace) 100 mg PO BID PRN PRN Reason: CONSTIPATION Stop: 08/08/18 09:01 Enoxaparin Sodium (Lovenox) 100 mg SQ BID [facility] Stop: 08/08/18 09:14 Last Admin: 07/09/18 09:59 Dose: 100 mg Documented by: Hydrocortisone Valerate (Westcort 0.2%) 1 appln EXT BID [facility] Stop: 08/06/18 20:59 Last Admin: 07/09/18 07:33 Dose: Not Given Documented by: Lorazepam (Ativan) 0.5 mg PO BID PRN PRN Reason: Anxiety Stop: 08/06/18 12:08 Magnesium Oxide (Mag-Ox) 400 mg PO BID [facility] Stop: 08/07/18 08:59 Last Admin: 07/09/18 07:31 Dose: 400 mg Documented by: Meclizine HCl (Antivert) 25 mg PO TID PRN PRN Reason: dizziness Stop: 08/06/18 12:08 Meloxicam (Mobic) 7.5 mg PO DAILY PRN PRN Reason: Pain Stop: 08/06/18 12:08 Miscellaneous (Order Awaiting Action) 1 ea N/A QS [facility] Stop: 08/06/18 15:59 Last Admin: 07/09/18 07:29 Dose: Not Given Documented by: Miscellaneous (Order Awaiting Action) 1 ea N/A QS [facility] Stop: 08/06/18 15:59 Last Admin: 07/09/18 07:29 Dose: Not Given Documented by: Miscellaneous (Icu Protocol For Hyperglycemia) 1 ea N/A PRN PRN; Protocol PRN Reason: Hyperglycemia Protocol Stop: 07/09/18 17:05 Multivitamins (Multivitamin Tab) 1 tab PO DAILY [facility] Stop: 08/07/18 08:59 Last Admin: 07/09/18 07:31 Dose: 1 tab Documented by: Multivitamins/Minerals (Caltrate Plus) 1 tab PO BID [facility] Stop: 08/07/18 08:59 Last Admin: 07/09/18 07:30 Dose: 1 tab Documented by: Pantoprazole Sodium (Protonix) 40 mg PO QAM [facility] Stop: 08/08/18 08:59 Last Admin: 07/09/18 07:31 Dose: 40 mg Documented by: Polyethylene Glycol (Miralax Powder Packet) 17 gm PO DAILY PRN PRN Reason: CONSTIPATION Stop: 08/08/18 09:00 Fluticasone/Salmeterol (Advair Diskus 250/50) 1 puffs INH BID [facility] Stop: 08/06/18 20:59 Last Admin: 07/09/18 07:30 Dose: 1 puffs Documented by: Sertraline HCl (Zoloft) 150 mg PO QAM [facility] Stop: 08/07/18 08:59 Last Admin: 07/09/18 07:32 Dose: 150 mg Documented by: Tiotropium [place] (Spiriva) 1 puffs INH DAILY [facility] Stop: 08/07/18 08:59 Last Admin: 07/09/18 07:32 Dose: 1 puffs Documented by: Tramadol HCl (Ultram) 50 mg PO Q6H PRN PRN Reason: Pain Stop: 08/06/18 12:08 Last Admin: 07/08/18 23:23 Dose: 50 mg Documented by: Triamterene/HCTZ (Maxzide 37.5/25mg) 1 tab PO QAM [facility] Stop: 08/07/18 08:59 Last Admin: 07/09/18 07:31 Dose: 1 tab Documented by: Warfarin Sodium (Coumadin) 2.5 mg PO MoWe@1600 [facility] Stop: 08/11/18 15:59 Warfarin Sodium (Coumadin) 5 mg PO SuTuThFrSa@1600 [facility] Stop: 08/08/18 15:59 (1) Atrial fibrillation Atrial fibrillation type: permanent Qualified Code(s): I48.2 - Chronic atrial fibrillation (2) CHF (congestive heart failure) Heart failure type: diastolic Heart failure chronicity: chronic Qualified Code(s): I50.32 - Chronic diastolic (congestive) heart failure (3) COPD (chronic obstructive pulmonary disease) COPD type: emphysema Emphysema type: unspecified Qualified Code(s): J43.9 - Emphysema, unspecified (4) Depression Depression Type: major depressive disorder Major depression recurrence: unspecified whether recurrent Active/Remission status: remission status unspecified Qualified Code(s): F32.9 - Major depressive disorder, single episode, unspecified
--- NOTE | 2018-07-09 15:24 | Cardiology Progress Note ---
Date of Service July 09, 2018 Assessment & Plan (1) Pneumothorax on left: Repeat x-ray today reports persistent left-sided apical pneumothorax. Chest tube remains in place. Management per thoracic medicine. (2) Chronic atrial fibrillation: Heart rate ranging from 90-110 bpm. Continue diltiazem and digoxin. Dose of Coumadin for goal INR of 2.0-3.0. (3) S/P biventricular cardiac pacemaker procedure: Subjective Patient seen and examined at the bedside. Admitted to ICU after iatrogenic left-sided pneumothorax. Intubated briefly then extubated after chest tube placement. Remains in atrial fibrillation with heart rates ranging from 90-105 bpm on telemetry. Denies palpitations. She is awake alert. Notes chest tenderness in the region of chest tube. Tolerating diet and medications. Of fers no other concerns/complaints at this time peer Review of Systems All systems reviewed & are unremarkable except as noted in HPI & below Physical Exam Vital Signs (Past 24 Hours): Last Vital Signs Temp 37.3 C 07/09/18 12:00 Pulse 100 H 07/09/18 14:01 Resp 31 H 07/09/18 14:01 BP 107/80 07/09/18 14:01 Pulse Ox 96 07/09/18 14:01 Physical Exam: General: NAD, AAO x3, chronically ill. Overweight. HEENT: Normocephalic. Atraumatic. Conjunctiva pink, no scleral icterus. Neck: No carotid bruits, the carotid upstrokes are brisk. No JVD. No HJR Heart: Regular, tachycardic, normal S-1 and S-2 no S-3 or S-4 gallop. No murmurs or rub appreciated. PMI is not displaced. No RV heave. Lungs: Diminished breath sounds bilaterally. No rales, rhonchi, or wheeze. Abdomen: Normal bowel sounds. Soft. Nontender. No masses or organomegaly. No abdominal bruits. Extremities: No clubbing, cyanosis, or edema. Pulses: radial=2/4, Dorsalis pedis =2/4. Neuro: Cranial nerves grossly intact. No focal motor deficit. Results & Data Laboratory Results Laboratory Results - last 24 hr 07/08/18 07/08/18 07/09/18 16:15 20:47 03:58 WBC RBC Hgb Hct MCV MCH MCHC RDW Std Deviation RDW Coeff of Daniela Plt Count MPV Immature Gran % (Auto) Neut % (Auto) Lymph % (Auto) Park % (Auto) Eos % (Auto) Baso % (Auto) Immature Gran # (Auto) Neut # (Auto) Lymph # (Auto) Park # (Auto) Eos # (Auto) Baso # (Auto) PT 11.0 INR 1.1 Sodium Potassium Chloride Carbon Dioxide Anion Gap BUN Creatinine Est Cr Clr Drug Dosing Est GFR ( Amer) Est GFR (Non-Af Amer) BUN/Creatinine Ratio Glucose POC Glucose 129 H 153 H Calcium Phosphorus Magnesium Digoxin 07/09/18 07/09/18 07/09/18 07:54 07:54 08:21 WBC 12.24 H RBC 4.45 Hgb 12.0 Hct 39.5 MCV 88.8 MCH 27.0 MCHC 30.4 L RDW Std Deviation 50.1 H RDW Coeff of Daniela 15.5 H Plt Count 114 L MPV 11.0 H Immature Gran % (Auto) 0.2 Neut % (Auto) 86.3 Lymph % (Auto) 5.0 Park % (Auto) 6.3 Eos % (Auto) 2.0 Baso % (Auto) 0.2 Immature Gran # (Auto) 0.03 H Neut # (Auto) 10.56 H Lymph # (Auto) 0.61 L Park # (Auto) 0.77 H Eos # (Auto) 0.25 Baso # (Auto) 0.02 PT INR Sodium 140 Potassium 3.6 D Chloride 99 Carbon Dioxide 36 H Anion Gap 5.0 BUN 10 D Creatinine 0.92 Est Cr Clr Drug Dosing 76.4 Est GFR ( Amer) 74.2 Est GFR (Non-Af Amer) 64.0 BUN/Creatinine Ratio 10.6 Glucose 144 H POC Glucose Calcium 8.6 Phosphorus 2.8 D Magnesium 2.1 Digoxin 0.8 Medications Administered Current Inpatient Medications Acetaminophen (Tylenol) 650 mg PO Q4H PRN PRN Reason: Pain Stop: 08/06/18 12:06 Last Admin: 07/09/18 03:46 Dose: 650 mg Documented by: Albuterol (Ventolin Hfa) 2 puffs INH Q4H PRN PRN Reason: Shortness Of Breath Or Wheezing Stop: 08/06/18 12:08 Albuterol (Duoneb) 3 ml INH Q8H PRN PRN Reason: SHORT OF BREATH Stop: 08/06/18 12:08 Bisacodyl (Dulcolax) 5 mg PO DAILY PRN PRN Reason: CONSTIPATION Stop: 08/08/18 09:00 Digoxin (Lanoxin) 0.125 mg PO DAILY@1600 [facility] Stop: 08/07/18 15:59 Last Admin: 07/08/18 16:02 Dose: 0.125 mg Documented by: Diltiazem HCl (Cardizem Cd) 300 mg PO QAM [facility] Stop: 08/07/18 08:59 Last Admin: 07/09/18 07:30 Dose: 300 mg Documented by: Diltiazem HCl (Cardizem Cd) 120 mg PO QAM [facility] Stop: 08/07/18 08:59 Last Admin: 07/09/18 07:30 Dose: 120 mg Documented by: Docusate Sodium (Colace) 100 mg PO BID PRN PRN Reason: CONSTIPATION Stop: 08/08/18 09:01 Enoxaparin Sodium (Lovenox) 100 mg SQ BID [facility] Stop: 08/08/18 09:14 Last Admin: 07/09/18 09:59 Dose: 100 mg Documented by: Hydrocortisone Valerate (Westcort 0.2%) 1 appln EXT BID [facility] Stop: 08/06/18 20:59 Last Admin: 07/09/18 07:33 Dose: Not Given Documented by: Lorazepam (Ativan) 0.5 mg PO BID PRN PRN Reason: Anxiety Stop: 08/06/18 12:08 Magnesium Oxide (Mag-Ox) 400 mg PO BID [facility] Stop: 08/07/18 08:59 Last Admin: 07/09/18 07:31 Dose: 400 mg Documented by: Meclizine HCl (Antivert) 25 mg PO TID PRN PRN Reason: dizziness Stop: 08/06/18 12:08 Meloxicam (Mobic) 7.5 mg PO DAILY PRN PRN Reason: Pain Stop: 08/06/18 12:08 Miscellaneous (Order Awaiting Action) 1 ea N/A QS [facility] Stop: 08/06/18 15:59 Last Admin: 07/09/18 07:29 Dose: Not Given Documented by: Miscellaneous (Order Awaiting Action) 1 ea N/A QS [facility] Stop: 08/06/18 15:59 Last Admin: 07/09/18 07:29 Dose: Not Given Documented by: Miscellaneous (Icu Protocol For Hyperglycemia) 1 ea N/A PRN PRN; Protocol PRN Reason: Hyperglycemia Protocol Stop: 07/09/18 17:05 Multivitamins (Multivitamin Tab) 1 tab PO DAILY [facility] Stop: 08/07/18 08:59 Last Admin: 07/09/18 07:31 Dose: 1 tab Documented by: Multivitamins/Minerals (Caltrate Plus) 1 tab PO BID [facility] Stop: 08/07/18 08:59 Last Admin: 07/09/18 07:30 Dose: 1 tab Documented by: Pantoprazole Sodium (Protonix) 40 mg PO QAM [facility] Stop: 08/08/18 08:59 Last Admin: 07/09/18 07:31 Dose: 40 mg Documented by: Polyethylene Glycol (Miralax Powder Packet) 17 gm PO DAILY PRN PRN Reason: CONSTIPATION Stop: 08/08/18 09:00 Fluticasone/Salmeterol (Advair Diskus 250/50) 1 puffs INH BID [facility] Stop: 08/06/18 20:59 Last Admin: 07/09/18 07:30 Dose: 1 puffs Documented by: Sertraline HCl (Zoloft) 150 mg PO QAM [facility] Stop: 08/07/18 08:59 Last Admin: 07/09/18 07:32 Dose: 150 mg Documented by: Tiotropium [place] (Spiriva) 1 puffs INH DAILY [facility] Stop: 08/07/18 08:59 Last Admin: 07/09/18 07:32 Dose: 1 puffs Documented by: Tramadol HCl (Ultram) 50 mg PO Q6H PRN PRN Reason: Pain Stop: 08/06/18 12:08 Last Admin: 07/08/18 23:23 Dose: 50 mg Documented by: Triamterene/HCTZ (Maxzide 37.5/25mg) 1 tab PO QAM [facility] Stop: 08/07/18 08:59 Last Admin: 07/09/18 07:31 Dose: 1 tab Documented by: Warfarin Sodium (Coumadin) 2.5 mg PO MoWe@1600 [facility] Stop: 08/11/18 15:59 Warfarin Sodium (Coumadin) 5 mg PO SuTuThFrSa@1600 [facility] Stop: 08/08/18 15:59
--- NOTE | 2018-07-09 15:44 | Consultation Report ---
DATE OF CONSULTATION: 07/09/2018 REASON FOR CONSULTATION: Air leak. HISTORY OF PRESENT ILLNESS: This is a very pleasant 67-year-old female admitted in the ICU. The patient underwent a pacemaker placement on 07/07/2018. Following placement of her pacemaker, she was noted to have a pneumothorax. She has significant respiratory distress requiring intubation with mechanical ventilation. She was noted to have a pneumothorax after this procedure and required chest tube placement which was performed by the intensive care service. We were asked to see the patient as she has had a persistent air leak following this procedure. I visited with the patient at the bedside and she said she is having some pain at her surgical incisions and chest tube site, but overall feels good and her breathing is not labored. The patient denies any fever, shakes, chills, nausea, vomiting or diarrhea. She currently is not short of breath and denies any chest pain. PAST MEDICAL HISTORY: Includes the followin. COPD. 2. History of chronic respiratory failure, on home oxygen. 3. History of PFO. 4. History of spontaneous pneumothorax. 5. Psoriasis. 6. Raynaud's phenomenon. 7. Multifocal atrial tachycardia. 8. Depression. 9. Stage III chronic kidney disease. 10. History of tobacco use. 11. History of pulmonary nodules. 12. GERD. 13. Atrial fibrillation. PAST SURGICAL HISTORY: Includes: 1. Colonoscopy. 2. History of teeth extractions. 3. Tonsillectomy. 4. Bilateral cataract surgery. 5. Hysterectomy. 6. Left foot surgery. 7. Permanent pacemaker placement. ALLERGIES: SHE HAS LISTED ALLERGY TO PENICILLIN. HOME MEDICATIONS: Include the followin. Albuterol inhaler as needed. 2. Calcium with vitamin D 1 tablet twice daily. 3. Temovate topically twice daily. 4. Desonide topically twice daily. 5. Digoxin 0.125 mg daily. 6. Diltiazem 420 mg daily. 7. Fluocinonide topically daily. 8. Advair Diskus twice daily. 9. Hydrocortisone topically twice daily. 10. DuoNebs as needed. 11. Ativan 0.5 mg twice daily as needed and 1 mg at bedtime as needed. 12. Mag-Ox 400 mg twice daily. 13. Meclizine 25 mg 3 times daily as needed. 14. Mobic 7.5 mg daily as needed. 15. Multivitamin daily. 16. Percocet as needed. 17. Protonix 40 mg daily. 18. Potassium chloride 30 mEq daily in the morning and 20 mEq in the evening. 19. Sertraline 1.5 tablets in the morning. 20. Spiriva inhaler daily. 21. Tramadol as needed for pain. 22. Triamcinolone topically as needed. 23. Maxzide 0.5 tablets daily. 24. Coumadin 5 mg daily. SOCIAL HISTORY: She is a former smoker. FAMILY HISTORY: No reported premature coronary artery disease in her family is noted. REVIEW OF SYSTEMS: As noted above. PHYSICAL EXAMINATION: VITAL SIGNS: The patient's blood pressure is 110/80, pulse 95 and regular. Respirations are 25, they are nonlabored. She is afebrile with temperature of 37.3, pulse ox 96% on 3 liters. SKIN: Warm with good turgor. GENERAL: She is alert. She is oriented x3. She is in no distress. HEENT: Head is atraumatic, normocephalic. Eyes: She has corrective lenses in place. Her extraocular motions are intact. Ears: Auditory acuity is grossly intact. Nose: Nasal patency is intact. Sinuses are nontender. Mouth is moist without exudates. NECK: Shows no tracheal shift or stridor. CARDIOVASCULAR: Regular rate and rhythm. LUNGS: Revealed breath sounds were slightly decreased on the left side. She is not using accessory muscles to aid in respiration. ABDOMEN: Soft. EXTREMITIES: Revealed no cyanosis, clubbing or edema. NEUROLOGIC: Revealed she can move all 4 extremities and follow simple commands. DIAGNOSTIC DATA: The patient had a chest x-ray today that showed a small right apical pneumothorax. IMPRESSION: A 59-year-old female with iatrogenic pneumothorax. PLAN: I examined the patient's chest tube drainage system today and she does have a small air leak. This coupled with the fact that she has a small pneumothorax that will require us to leave her chest tube in place. We will continue to follow serial chest x-rays and maintain her chest tube in place. Hopefully, her air leak will seal itself in a couple of days; however, if it does not seal in the next 2-3 days, we may consider operative intervention to fix this; however, we would like to get her through this hospitalization with another surgery if we can.
[2018-07-09] MEDS: WARFARIN SOD 5 MG TAB PO SCH (16:14)
[2018-07-09] MEDS: DIGOXIN 0.125 MG TAB PO SCH (16:14)
--- NOTE | 2018-07-09 18:13 | Consultation Report ---
DATE OF CONSULTATION: 07/09/2018 Ms. Johnson was seen today in consultation as she has a prolonged air leak after suffering an apparent iatrogenic pneumothorax 48 hours ago. She still has incomplete expansion of her left lung; however, she looks much improved clinically. At this point, I would see if she seals this leak herself in the next couple of days. It should be noted this patient has markedly emphysematous lungs and it is possible she ruptured a bleb. It is also possible we could end up taking her to the operating room to help repair this. I would like to let her sit for the weekend and will see how she does. She is also having some ventricular arrhythmias. would like to let this settle down before considering general anesthesia.
[2018-07-09] MEDS: TRAMADOL HCL 50 MG TABLET PO PRN (21:08)
[2018-07-09] MEDS: LORazepam 0.5 MG TAB PO PRN (21:09)
[2018-07-10 05:19] LABS: INR 1.1 (0.9-1.1); Prothrombin Time 11.4 Seconds (9.0-12.0)
[2018-07-10] MEDS: CALCIUM 600MG + VIT D 400 IU TAB PO SCH ×2 (07:30→20:04)
[2018-07-10] MEDS: dilTIAZem HCL 300 MG CAPCR PO SCH (07:30)
[2018-07-10] MEDS: FLUTICASONE/SALMETEROL 250/50 (ADVAIR) 14 PUFF/1 INHALER INH SCH ×2 (07:30→20:02)
[2018-07-10] MEDS: TRIAMTERENE/HCTZ 37.5/25MG TAB PO SCH (07:31)
[2018-07-10] MEDS: MAGNESIUM OXIDE 400 MG TAB PO SCH ×2 (07:31→20:06)
[2018-07-10] MEDS: ENOXAPARIN 100 MG/1ML SYR SQ SCH ×2 (07:31→20:04)
[2018-07-10] MEDS: dilTIAZem HCL 120 MG CAPCR PO SCH (07:31)
[2018-07-10] MEDS: HYDROCORTISONE VAL 0.2% CRM 15GM TUBE EXT SCH ×2 (07:32→20:02)
[2018-07-10] MEDS: SERTRALINE HCL 50 MG TABLET PO SCH (07:32)
[2018-07-10] MEDS: PANTOprazole 40 MG TAB PO SCH (07:32)
[2018-07-10] MEDS: MULTIVITAMIN TAB PO SCH (07:32)
[2018-07-10] MEDS: TIOTROPIUM BROMIDE 5 PUFF/90 MCG INH INH SCH (07:32)
--- NOTE | 2018-07-10 07:42 | XRay Report ---
SINGLE VIEW CHEST CLINICAL HISTORY: Pneumothorax. FINDINGS: An AP, portable, upright chest radiograph is compared to study dated 07/09/2018 and correlat ed with chest CT dated 10/29/2017. The examination is degraded by portable technique and patient rotati on. A 2-lead cardiac pacemaker is unchanged in position. The heart is enlarged and there is atheroscl erotic calcification of the thoracic aorta. The pulmonary vasculature is noncongested. Emphysema and chronic interstitial thickening are similar to previous. The pulmonary vasculature is noncongested. T here are trace pleural effusions with bibasilar atelectasis. A pigtail catheter projects over the lef t upper chest. A small left apical pneumothorax likely persists. The bony thorax is grossly intact. IMPRESSION: 1. Cardiomegaly and cardiac pacemaker. There is no radiographic evidence of congestive failure. 2. Trace pleural effusions with bibasilar atelectasis. 3. A pigtail catheter projects over the left upper chest. A small left apical pneumothorax likely per sists. Electronically signed by: Rishi Alvarez M.D. 07/10/2018 7:40 AM
[2018-07-10] MEDS: TRAMADOL HCL 50 MG TABLET PO PRN ×2 (08:30→20:20)
--- NOTE | 2018-07-10 09:14 | Critical Care Progress Note ---
Date of Service July 10, 2018 Assessment & Plan (1) Admitted to intensive care unit: Reason Critically Ill: Perioperatively developed a left pneumothorax requiring intubation and chest tube placement Neuro - [facility] ICU: Negative Cardiac - Postop day 3 from pacemaker placement Nonsustained ventricular tachycardia when sitting upright -Starting beta-blockade: Metoprolol XL 25 mg daily Respiratory - COPD on chronic supplemental O2 of 3-4 L/min via nasal cannula at home Resume home medications Iatrogenic pneumothorax: Persistent air leak: Consult thoracic surgery for need for possible intervention question ruptured bleb, continue 4 on 4 off wall suction -Interval decrease in size GI - Chronic GERD without esophagitis Continue pantoprazole RENAL/LYTES - Stage III chronic kidney disease Creatinine 0.92 - Discontinue Vuong ENDO - No history of diabetes mellitus No history of a hypothyroidism Follow glucose per protocol HEME - DVT prophylaxis: Lovenox as INR is not therapeutic -Starting Coumadin goal 2-3 INR ID - Leukocytosis: Nonspecific LINES/IV ACCESS - Peripheral IVs in place No indication for central line at this time Continue to monitor DVT PROPHYLAXIS - Lovenox Increase ambulations. Patient's critical care needs have resolved. Patient would be stable for downgrade out of ICU. Physical Exam Vital Signs (Past 24 Hours): Last Vital Signs Temp 36.6 C 07/10/18 08:00 Pulse 126 H 07/10/18 08:00 Resp 18 07/10/18 08:00 BP 111/88 07/10/18 08:00 Pulse Ox 96 07/10/18 08:00 General: Alert. nontoxic. Skin: Warm, dry, Head: Atraumatic Ears, nose, mouth and throat: airway patent Cardiovascular: Normal peripheral perfusion Chest: Incision clean dry intact; left chest chest tube present +1 air leak Respiratory: no respiratory distress Gastrointestinal: Non distended Musculoskeletal: No deformity
[2018-07-10] MEDS: METOPROLOL SUCC 25MG EXT REL TAB PO SCH (09:54)
[2018-07-10 10:02] LABS: Appearance Urine Clear (Clear); Bilirubin Urine Negative (Negative); Blood Urine Negative (Negative); Color Urine Yellow; Glucose Urine UA Negative (Negative); Ketones Urine Negative (Negative); Leukocyte Esterase Urine Negative (Negative); Nitrite Urine Negative (Negative); Protein Urine Negative (Negative); Specific Gravity Urine 1.012 (1.000-1.030); Urobilinogen Urine Negative (Negative); pH Urine 8.5 (4.5-7.5)
--- NOTE | 2018-07-10 10:04 | Cardiology Progress Note ---
Date of Service July 10, 2018 Assessment & Plan (1) Pneumothorax on left: Chest tube remains in place. Management per thoracic medicine. Echocardiogram ordered for a.m.` (2) Chronic atrial fibrillation: Heart rate ranging from 90-110 bpm. Continue diltiazem and digoxin. Would not increase diltiazem further given history of mild LV dysfunction. Agree with adding low-dose beta-leah to regimen, already ordered Dose of Coumadin for goal INR of 2.0-3.0. (3) S/P biventricular cardiac pacemaker procedure: Subjective Patient seen and examined at the bedside. Remains admitted to ICU after i atrogenic left-sided pneumothorax. Still in atrial fibrillation with elevated ventricular response rates. Appears slightly more fatigued comparison to yesterday per staff. Small persistent air leak at chest tube site Chest x-ray with small residual apical pneumothorax no congestive heart failure, no change in cardiac silhouette size Physical Exam Vital Signs (Past 24 Hours): Last Vital Signs Temp 36.6 C 07/10/18 08:00 Pulse 126 H 07/10/18 08:00 Resp 18 07/10/18 08:00 BP 111/88 07/10/18 08:00 Pulse Ox 96 07/10/18 08:00 Constitutional: well developed and + ill appearing Eyes: PERRL, conjunctivae normal, anicteric sclerae Neck: trachea midline, no thyromegaly + thick neck Cardiovascular: Rate/Rhythm: + irregularly irregular (With tachycardic response, distant heart sounds) Extremities: + pedal edema (Trace) Chest (Breasts): Additional Comments: Pacer site without hematoma. Chest tube in place Results & Data Laboratory Results Laboratory Results - last 24 hr 07/10/18 07/10/18 07/10/18 00:01 04:30 09:35 PT 11.4 INR 1.1 POC Glucose 115 H Urine Color Yellow Urine Appearance Clear Urine pH 8.5 H Ur Specific [place] 1.012 Urine Protein Negative Urine Glucose (UA) Negative Urine Ketones Negative Urine Blood Negative Urine Nitrite Negative Urine Bilirubin Negative Urine Urobilinogen Negative Ur Leukocyte Esterase Negative
--- NOTE | 2018-07-10 10:51 | Surgery Progress Note ---
Date of Service July 10, 2018 Assessment & Plan (1) Pneumothorax on left: -chest tube examined this yasminnong and noted to have a small air leak (appears smaller than yesterday) -CXR shows left apical pneumthorax -will continue chest tube alternating periods of suction and water seal in hopes that air leak will heal/seal -we would be hesitant to take pt. to OR due to noted arrhythmias -follow serial CXRs Subjective Pt. notes her breathing feels ok this morning. No significant CP. Physical Exam Vital Signs (Past 24 Hours): Last Vital Signs Temp 36.6 C 07/10/18 08:00 Pulse 126 H 07/10/18 08:00 Resp 18 07/10/18 08:00 BP 111/88 07/10/18 08:00 Pulse Ox 96 07/10/18 08:00 Constitutional: well nourished; no acute distress Respiratory: no respiratory distress and no labored breathing BS noted to be decreased at bases Cardiovascular: Rate/Rhythm: regular rate and regular rhythm
[2018-07-10] MEDS: WARFARIN SOD 5 MG TAB PO SCH (15:10)
[2018-07-10] MEDS: DIGOXIN 0.125 MG TAB PO SCH (15:11)
[2018-07-10] MEDS: ACETAMINOPHEN 325 MG TAB PO PRN (17:12)
[2018-07-10] MEDS: LORazepam 0.5 MG TAB PO PRN (20:20)
[2018-07-11 05:16] LABS: Hematocrit (blood only) 35.6 % (37-47); Hemoglobin 10.9 g/dL (12.0-16.0); Mean Corpuscular Hgb Conc 30.6 g/dL (32-36); Mean Corpuscular Volume 89.2 fL (80-100); Mean Platelet Volume 11.1 fL (7.4-10.4); Platelet Count 121 K/uL (130-400); RDW Coefficient of Variation 15.3 % (11.5-14.5); RDW Standard Deviation 50.2 fL (36.4-46.3); Red Blood Count 3.99 M/uL (4.2-5.4); White Blood Count 7.75 K/uL (4.8-10.8)
[2018-07-11 05:31] LABS: INR 1.1 (0.9-1.1); Prothrombin Time 11.4 Seconds (9.0-12.0)
--- NOTE | 2018-07-11 06:51 | XRay Report ---
XR chest 1V portable CLINICAL HISTORY: pneumothorax pneumothorax COMPARISON STUDY: 07/10/2018 FINDINGS: Slight increase in volume of left apical pneumothorax. Maximum pleural separation is 2.8 cm . Mild left basilar atelectasis. Unchanged left small caliber chest tube. IMPRESSION: Slight increase in volume of a left apical pneumothorax. Maximum current pleural separat ion is 2.8 cm. The above report was generated using voice recognition software. It may contain grammatical, syntax or spelling errors. Electronically signed by: Frankie Schuler M.D. 07/11/2018 6:49 AM
--- NOTE | 2018-07-11 07:31 | Critical Care Progress Note ---
Date of Service July 11, 2018 Assessment & Plan (1) Admitted to intensive care unit: Reason Critically Ill: Perioperatively developed a left pneumothorax requiring intubation and chest tube placement Neuro - [facility] ICU: Negative Cardiac - Postop day 4 from pacemaker placement Nonsustained ventricular tachycardia when sitting upright -consider increase of beta-blockade: Currently Metoprolol XL 25 mg daily Respiratory - COPD on chronic supplemental O2 of 3-4 L/min via nasal cannula at home Resume home medications Iatrogenic pneumothorax: Persistent air leak: Consult thoracic surgery for need for possible intervention question ruptured bleb, continue 4 on 4 off wall suction -Interval decrease in size GI - Chronic GERD without esophagitis Continue pantoprazole RENAL/LYTES - Stage III chronic kidney disease Creatinine 0.92 - Discontinue Vuong ENDO - No history of diabetes mellitus No history of a hypothyroidism Follow glucose per protocol HEME - DVT prophylaxis: Lovenox as INR is not therapeutic -Holding Coumadin with anticipation of operative management ID - Leukocytosis: Nonspecific LINES/IV ACCESS - Peripheral IVs in place DVT PROPHYLAXIS - Lovenox Increase ambulation. Patient's critical care needs have resolved. Patient would be stable for downgrade out of ICU. Subjective No overnight events, no complaints denies chest pain palpitations shortness of breath. Physical Exam Vital Signs (Past 24 Hours): Last Vital Signs Temp 36.7 C 07/11/18 05:01 Pulse 83 07/11/18 05:01 Resp 5 L 07/11/18 05:01 BP 124/65 07/11/18 05:01 Pulse Ox 99 07/11/18 05:01 General: Alert. nontoxic. Skin: Warm, dry, Head: Atraumatic Ears, nose, mouth and throat: airway patent Cardiovascular: Normal peripheral perfusion Respiratory: no respiratory distress +1 air leak Gastrointestinal: Non distended Musculoskeletal: No deformity Results & Data Laboratory Results 07/11/18 07/11/18 07/10/18 Range/Units 04:17 04:17 09:35 WBC 7.75 (4.8-10.8) K/uL RBC 3.99 L (4.2-5.4) M/uL Hgb 10.9 L (12.0-16.0) g/dL Hct 35.6 L (37-47) % MCV 89.2 (80-100) fL MCH 27.3 (25-34) pg MCHC 30.6 L (32-36) g/dL RDW Std Deviation 50.2 H (36.4-46.3) fL RDW Coeff of Daniela 15.3 H (11.5-14.5) % Plt Count 121 L (130-400) K/uL MPV 11.1 H (7.4-10.4) fL PT 11.4 (9.0-12.0) Seconds INR 1.1 (0.9-1.1) Urine Color Yellow Urine Appearance Clear (Clear) Urine pH 8.5 H (4.5-7.5) Ur Specific [place] 1.012 (1.000-1.030) Urine Protein Negative (Negative) Urine Glucose (UA) Negative (Negative) Urine Ketones Negative (Negative) Urine Blood Negative (Negative) Urine Nitrite Negative (Negative) Urine Bilirubin Negative (Negative) Urine Urobilinogen Negative (Negative) Ur Leukocyte Esterase Negative (Negative)
--- NOTE | 2018-07-11 07:41 | Surgery Progress Note ---
Date of Service July 11, 2018 Assessment & Plan (1) Pneumothorax on left: -chest tube examined this morning and air leak continues -CXR shows left apical pneumothorax, larger than yesterday (CXR was taken with tube off suction) -will continue chest tube alternating periods of suction and water seal: -if pneumothorax and air leak continue may require VATS or placement of a alternative chest tube -we would be hesitant to take pt. to OR due to noted arrhythmias, but will consider this if cardiac issues remain stable -follow serial CXRs Subjective Pt. states "my breathing feels fine, I just need to be patient with this chest tube." Discussed with RN--air leak continues. Less cardiac arrhythmias noted since beta blockers started. Physical Exam Vital Signs (Past 24 Hours): Last Vital Signs Temp 36.7 C 07/11/18 05:01 Pulse 83 07/11/18 05:01 Resp 5 L 07/11/18 05:01 BP 124/65 07/11/18 05:01 Pulse Ox 99 07/11/18 05:01 Constitutional: well nourished; no acute distress Respiratory: no respiratory distress and no labored breathing Cardiovascular: Rate/Rhythm: regular rate and regular rhythm
--- NOTE | 2018-07-11 07:41 | Hospitalist Progress Note ---
Date of Service July 11, 2018 delayed entry date of service 07/10/18 Assessment & Plan (1) Acute on chronic respiratory failure with hypoxia and hypercapnia: Has history of severe COPD on 4 L of oxygen at home Developed acute respiratory failure with pneumothorax during placement of pacemaker -- (+) small leak further management per Thoracic Surgery SVC (2) Pneumothorax on left: As above (3) S/P biventricular cardiac pacemaker procedure: s/p biventricular cardiac pacemaker placed with AVN by Dr. Araiza Secondary to atrial fibrillation with RVR despite AV anna blocking agents Procedure complicated by large left-sided pneumothorax 50%, ABG pH 7.11, CO2 97, HCO3 31 (4) Hyperglycemia: ICU hyperglycemia protocol A1C 5.9 in 03/2018 A1C : 6.2 (5) Atrial fibrillation: s/p Biv Pacemaker placement by Dr. Araiza usual Diltiazem, Digoxin resumed -- Metoprolol added for better HR control (6) CHF (congestive heart failure): euvolemic last echo Date: 05/18/18: LVEF 50-54%. Mild inferior wall HK. Basal septum is thickened and angulated consistent with sigmoid septum. Masked dyssynergy of the interventricular septum and apical septum. Moderately increased LV wall thickness. No significant valvular disease. (7) CKD (chronic kidney disease), stage III: baseline Cr 1.1 mild elevation in Cr to 1.39 received IV fluids, now back to baseline (8) COPD (chronic obstructive pulmonary disease): severe COPD on chronic 4L O2 resume trelegy (or house stock ICS/LABA/anticholinergic) when able not in exacerbation (9) Depression: on zoloft (10) DVT prophylaxis: Disposition: to be determined Follow up: PCP Dr. Bhatti upon discharge Subjective ff up for L pneumothorax seen resting in bedside chair having lunch comfortable states she feels tired, not able to sleep well the night before- cannot fall asleep denies chest pain, dyspnea, palpitations, dizziness, nausea/vomiting no other symptoms Physical Exam Vital Signs (Past 24 Hours): Last Vital Signs Temp 36.7 C 07/11/18 05:01 Pulse 83 07/11/18 05:01 Resp 5 L 07/11/18 05:01 BP 124/65 07/11/18 05:01 Pulse Ox 99 07/11/18 05:01 Physical Exam: General- oriented x 3, not in distress, speaks in sentences with no effort or accessory muscle use Eyes- anicteric Neck- no JVD Lungs- clear BS BL, no crackles, no wheezing Heart- normal rate, regular rhythm; no murmurs Abdomen- normal bowel sounds, nondistended, soft, nontender Extremities- no pretibial edema, no calf tenderness Neuro- alert, oriented x 3; no gross focal neurologic deficits Skin- warm & dry Results & Data Laboratory Results Laboratory Results - last 24 hr 07/10/18 07/11/18 07/11/18 09:35 04:17 04:17 WBC 7.75 RBC 3.99 L Hgb 10.9 L Hct 35.6 L MCV 89.2 MCH 27.3 MCHC 30.6 L RDW Std Deviation 50.2 H RDW Coeff of Daniela 15.3 H Plt Count 121 L MPV 11.1 H PT 11.4 INR 1.1 Urine Color Yellow Urine Appearance Clear Urine pH 8.5 H Ur Specific [place] 1.012 Urine Protein Negative Urine Glucose (UA) Negative Urine Ketones Negative Urine Blood Negative Urine Nitrite Negative Urine Bilirubin Negative Urine Urobilinogen Negative Ur Leukocyte Esterase Negative (1) Atrial fibrillation Atrial fibrillation type: permanent Qualified Code(s): I48.2 - Chronic atrial fibrillation (2) CHF (congestive heart failure) Heart failure type: diastolic Heart failure chronicity: chronic Qualified Code(s): I50.32 - Chronic diastolic (congestive) heart failure (3) COPD (chronic obstructive pulmonary disease) COPD type: emphysema Emphysema type: unspecified Qualified Code(s): J43.9 - Emphysema, unspecified (4) Depression Depression Type: major depressive disorder Major depression recurrence: unspecified whether recurrent Active/Remission status: remission status unspecified Qualified Code(s): F32.9 - Major depressive disorder, single episode, unspecified
[2018-07-11] MEDS: FLUTICASONE/SALMETEROL 250/50 (ADVAIR) 14 PUFF/1 INHALER INH SCH ×2 (07:48→21:55)
[2018-07-11] MEDS: CALCIUM 600MG + VIT D 400 IU TAB PO SCH ×2 (07:48→21:53)
[2018-07-11] MEDS: dilTIAZem HCL 300 MG CAPCR PO SCH (07:49)
[2018-07-11] MEDS: dilTIAZem HCL 120 MG CAPCR PO SCH (07:49)
[2018-07-11] MEDS: ENOXAPARIN 100 MG/1ML SYR SQ SCH ×2 (07:49→21:52)
[2018-07-11] MEDS: PANTOprazole 40 MG TAB PO SCH (07:50)
[2018-07-11] MEDS: METOPROLOL SUCC 25MG EXT REL TAB PO SCH (07:50)
[2018-07-11] MEDS: TRIAMTERENE/HCTZ 37.5/25MG TAB PO SCH (07:50)
[2018-07-11] MEDS: MULTIVITAMIN TAB PO SCH (07:50)
[2018-07-11] MEDS: MAGNESIUM OXIDE 400 MG TAB PO SCH ×2 (07:50→21:53)
[2018-07-11] MEDS: TIOTROPIUM BROMIDE 5 PUFF/90 MCG INH INH SCH (07:50)
[2018-07-11] MEDS: HYDROCORTISONE VAL 0.2% CRM 15GM TUBE EXT SCH ×2 (07:51→21:47)
[2018-07-11] MEDS: SERTRALINE HCL 50 MG TABLET PO SCH (07:51)
--- NOTE | 2018-07-11 10:15 | Cardiology Progress Note ---
Date of Service July 11, 2018 Assessment & Plan (1) Pneumothorax on left: Chest tube remains in place. Management per thoracic medicine. Echocardiogram ordered for a.m.` (2) Chronic atrial fibrillation: Heart rate ranging from 90-110 bpm. Continue diltiazem and digoxin. Would not increase diltiazem further given history of mild LV dysfunction. Agree with adding low-dose beta-leah to regimen, already ordered Dose of Coumadin for goal INR of 2.0-3.0. (3) S/P biventricular cardiac pacemaker procedure: Subjective Patient seen and examined at the bedside, chart medications, telemetry reviewed. Heart rate improved this morning with the addition of beta-leah yesterday. No chest pains or discomfort no dizziness or lightheadedness. Persistent pneumothorax still noted with chest tube in place Physical Exam Vital Signs (Past 24 Hours): Last Vital Signs Temp 36.7 C 07/11/18 08:10 Pulse 101 H 07/11/18 08:30 Resp 19 07/11/18 08:30 BP 111/68 07/11/18 07:01 Pulse Ox 97 07/11/18 08:30 Constitutional: well developed and + ill appearing Eyes: PERRL, conjunctivae normal, anicteric sclerae Neck: trachea midline, no thyromegaly + thick neck Cardiovascular: Rate/Rhythm: + irregularly irregular (With tachycardic response, distant heart sounds) Extremities: + pedal edema (Trace) Results & Data Laboratory Results Laboratory Results - last 24 hr 07/11/18 07/11/18 04:17 04:17 WBC 7.75 RBC 3.99 L Hgb 10.9 L Hct 35.6 L MCV 89.2 MCH 27.3 MCHC 30.6 L RDW Std Deviation 50.2 H RDW Coeff of Daniela 15.3 H Plt Count 121 L MPV 11.1 H PT 11.4 INR 1.1
[2018-07-11 11:07] LABS: BUN Creatinine Ratio 15.8 (10-20); Calcium 8.7 mg/dl (8.5-10.1); Creatinine Clr Calc Pharmacy 76.7 ml/min; Est GFR (African American) 76.1; Est GFR (Non-African American) 65.7; Potassium 2.9 mmol/L (3.5-5.1)
[2018-07-11] MEDS ORDERED: POTASSIUM CHLORIDE 10 MEQ TABCR PO STA (14:36)
[2018-07-11] MEDS: DIGOXIN 0.125 MG TAB PO SCH (15:33)
--- NOTE | 2018-07-11 16:06 | Hospitalist Progress Note ---
Date of Service July 11, 2018 Assessment & Plan (1) Acute on chronic respiratory failure with hypoxia and hypercapnia: Has history of severe COPD on 4 L of oxygen at home Developed acute respiratory failure with pneumothorax during placement of pacemaker -- (+) air leak, seems to be expanding further management per Thoracic Surgery SVC -- coumadin on hold for possible procedure on Lovenox SC BID (2) Pneumothorax on left: As above (3) S/P biventricular cardiac pacemaker procedure: s/p biventricular cardiac pacemaker placed with AVN by Dr. Araiza Secondary to atrial fibrillation with RVR despite AV anna blocking agents Procedure complicated by large left-sided pneumothorax 50%, ABG pH 7.11, CO2 97, HCO3 31 (4) Hyperglycemia: ICU hyperglycemia protocol A1C 5.9 in 03/2018 A1C : 6.2 (5) Atrial fibrillation: s/p Biv Pacemaker placement by Dr. Arazia usual Diltiazem, Digoxin resumed -- Metoprolol added for better HR control -- HR improved (6) CHF (congestive heart failure): euvolemic last echo Date: 05/18/18: LVEF 50-54%. Mild inferior wall HK. Basal septum is thickened and angulated consistent with sigmoid septum. Masked dyssynergy of the interventricular septum and apical septum. Moderately increased LV wall thickness. No significant valvular disease. (7) CKD (chronic kidney disease), stage III: baseline Cr 1.1 mild elevation in Cr to 1.39 received IV fluids, now back to baseline (8) COPD (chronic obstructive pulmonary disease): severe COPD on chronic 4L O2 resume trelegy (or house stock ICS/LABA/anticholinergic) when able not in exacerbation (9) Depression: on zoloft (10) DVT prophylaxis: On chronic Coumadin presently on hold in light of possible procedures with chest tube Currently on Lovenox subcu use twice a day Subjective ff up for L pneumothorax resting in bed, comfortable states she feels improved today denies shortness of breath, palpitations, dizziness no other symptoms Physical Exam Vital Signs (Past 24 Hours): Last Vital Signs Temp 36.9 C 07/11/18 15:23 Pulse 96 H 07/11/18 15:33 Resp 21 07/11/18 15:23 BP 133/80 07/11/18 15:23 Pulse Ox 98 04/14/19 15:23 Physical Exam: General- oriented x 3, not in distress, speaks in sentences with no effort or accessory muscle use Eyes- anicteric Neck- no JVD Lungs- clear BS BL; no rales/wheezes chest tube in place Heart- normal rate, regular rhythm; no murmurs Abdomen- normal bowel sounds, nondistended, soft, nontender Extremities- no pretibial edema, no calf tenderness Neuro- alert, oriented x 3; no gross focal neurologic deficits Skin- warm & dry Results & Data Laboratory Results Laboratory Results - last 24 hr 07/11/18 07/11/18 07/11/18 04:17 04:17 04:21 WBC 7.75 RBC 3.99 L Hgb 10.9 L Hct 35.6 L MCV 89.2 MCH 27.3 MCHC 30.6 L RDW Std Deviation 50.2 H RDW Coeff of Daniela 15.3 H Plt Count 121 L MPV 11.1 H PT 11.4 INR 1.1 Sodium 141 Potassium 2.9 L D Chloride 97 L Carbon Dioxide 37 H Anion Gap 7.0 BUN 14 Creatinine 0.90 Est Cr Clr Drug Dosing 76.7 Est GFR ( Amer) 76.1 Est GFR (Non-Af Amer) 65.7 BUN/Creatinine Ratio 15.8 Glucose 152 H Calcium 8.7 (1) CHF (congestive heart failure) Heart failure chronicity: chronic Heart failure type: diastolic Qualified Code(s): I50.32 - Chronic diastolic (congestive) heart failure (2) Atrial fibrillation Atrial fibrillation type: permanent Qualified Code(s): I48.2 - Chronic atrial fibrillation (3) Depression Active/Remission status: remission status unspecified Depression Type: major depressive disorder Major depression recurrence: unspecified whether recurrent Qualified Code(s): F32.9 - Major depressive disorder, single episode, unspecified (4) COPD (chronic obstructive pulmonary disease) COPD type: emphysema Emphysema type: unspecified Qualified Code(s): J43.9 - Emphysema, unspecified
[2018-07-11] MEDS: TRAMADOL HCL 50 MG TABLET PO PRN (21:53)
[2018-07-11] MEDS: LORazepam 0.5 MG TAB PO PRN (21:54)
[2018-07-12 06:29] LABS: INR 1.2 (0.9-1.1); Prothrombin Time 11.7 Seconds (9.0-12.0)
[2018-07-12 06:40] LABS: Calcium 8.8 mg/dl (8.5-10.1); Creatinine Clr Calc Pharmacy 68.9 ml/min; Est GFR (Non-African American) 57.8; Potassium 3.4 mmol/L (3.5-5.1)
--- NOTE | 2018-07-12 07:15 | XRay Report ---
XR chest 1V portable CLINICAL HISTORY: pneumothorax COMPARISON STUDY: 07/11/2018 FINDINGS: The cardiac and mediastinal contours remain stable. There is a left-sided dual-chamber cent ral venous pacemaker. There is a small left-sided pneumothorax the maximal pleural separation of 16 m m. This appears smaller than on the preceding study. There are minor basilar atelectatic changes. The re is blunting of the left lateral costophrenic angle.[ IMPRESSION: Interval decrease in the size of the left pneumothorax with a maximal pleural separation of 16 mm Electronically signed by: Issa Aviles M.D. 07/12/2018 7:14 AM
--- NOTE | 2018-07-12 09:47 | Cardiology Progress Note ---
Date of Service July 12, 2018 Assessment & Plan (1) Pneumothorax on left: Chest tube remains in place. Management per thoracic medicine. Echocardiogram on 07/10/2018 revealed no pericardial effusion (2) Chronic atrial fibrillation: Heart rate ranging from 90-110 bpm. Continue diltiazem and digoxin. Would not increase diltiazem further given history of mild LV dysfunction. Agree with adding low-dose beta-leah to regimen, already ordered Dose of Coumadin for goal INR of 2.0-3.0 currently on hold for anticipation of possible chest procedure Will supplement potassium today (3) S/P biventricular cardiac pacemaker procedure: Patient demonstrating evidence of diaphragmatic and chest wall stimulation on examination today occasional elevated ventricular pacing rate We will interrogate device Chest x-rays reviewed leads still remain within pericardium on AP views Subjective Patient seen and examined at the bedside, chart medications, telemetry reviewed. Heart rate still elevated, intermittent runs of ventricular ectopy. Exam today reveals diaphragmatic and chest wall stimulation from left ventricular lead Physical Exam Vital Signs (Past 24 Hours): Last Vital Signs Temp 36.6 C 07/12/18 07:15 Pulse 106 H 07/12/18 07:15 Resp 17 07/12/18 07:15 BP 100/78 07/12/18 07:15 Pulse Ox 98 07/12/18 07:15 Constitutional: well developed and + ill appearing Eyes: PERRL, conjunctivae normal, anicteric sclerae Neck: trachea midline, no thyromegaly + thick neck Cardiovascular: Rate/Rhythm: + irregularly irregular (With tachycardic response, distant heart sounds) Extremities: + pedal edema (Trace) Results & Data Laboratory Results Laboratory Results - last 24 hr 07/11/18 07/12/18 07/12/18 04:21 05:46 05:46 PT 11.7 INR 1.2 H Sodium 141 138 Potassium 2.9 L D 3.4 L D Chloride 97 L 99 Carbon Dioxide 37 H 36 H Anion Gap 7.0 3.0 BUN 14 18 Creatinine 0.90 1.00 Est Cr Clr Drug Dosing 76.7 68.9 Est GFR ( Amer) 76.1 67.0 Est GFR (Non-Af Amer) 65.7 57.8 BUN/Creatinine Ratio 15.8 18.0 Glucose 152 H 111 H Calcium 8.7 8.8
[2018-07-12] MEDS ORDERED: POTASSIUM CHLORIDE 20 MEQ TABCR PO STA (09:48)
[2018-07-12] MEDS: ENOXAPARIN 100 MG/1ML SYR SQ SCH ×2 (09:51→20:18)
[2018-07-12] MEDS: PANTOprazole 40 MG TAB PO SCH (09:51)
[2018-07-12] MEDS: CALCIUM 600MG + VIT D 400 IU TAB PO SCH ×2 (09:51→20:18)
[2018-07-12] MEDS: FLUTICASONE/SALMETEROL 250/50 (ADVAIR) 14 PUFF/1 INHALER INH SCH ×2 (09:51→20:16)
[2018-07-12] MEDS: METOPROLOL SUCC 25MG EXT REL TAB PO SCH (09:51)
[2018-07-12] MEDS: MULTIVITAMIN TAB PO SCH (09:52)
[2018-07-12] MEDS: dilTIAZem HCL 120 MG CAPCR PO SCH (09:52)
[2018-07-12] MEDS: SERTRALINE HCL 50 MG TABLET PO SCH (09:52)
[2018-07-12] MEDS: TRIAMTERENE/HCTZ 37.5/25MG TAB PO SCH (09:53)
[2018-07-12] MEDS: dilTIAZem HCL 300 MG CAPCR PO SCH (09:53)
[2018-07-12] MEDS: TIOTROPIUM BROMIDE 5 PUFF/90 MCG INH INH SCH (09:53)
[2018-07-12] MEDS: HYDROCORTISONE VAL 0.2% CRM 15GM TUBE EXT SCH ×2 (09:53→20:19)
[2018-07-12] MEDS: MAGNESIUM OXIDE 400 MG TAB PO SCH ×2 (09:54→20:18)
--- NOTE | 2018-07-12 10:53 | Progress Note ---
DATE: 07/12/2018 Ms. Johnson was seen today on 07/12/2018. I do not see an air leak today. I milked the tube and inspected it. I then looked at her x-ray and I really do not see a pneumothorax. The official reading is that she has a 16 mm separation, which is much smaller, but I do not see that either. At any rate, if she continues to look good tomorrow I pleased with her x-ray, we may remove this catheter. She sounds good on exam. She looks better to me overall.
--- NOTE | 2018-07-12 13:11 | Hospitalist Progress Note ---
Date of Service July 12, 2018 Assessment & Plan (1) Acute on chronic respiratory failure with hypoxia and hypercapnia: Has history of severe COPD on 4 L of oxygen at home Developed acute respiratory failure with pneumothorax during placement of pacemaker -- (+) air leak, seems to be expanding further management per Thoracic Surgery SVC -- coumadin on hold for possible procedure on Lovenox SC BID --Appreciate thoracic surgery input today --Chest tube has less drainage and the chest x-ray shows improvement as per thoracic surgery --Chest tube is likely to come out tomorrow and the patient may go home tomorrow or day after (2) Pneumothorax on left: As above (3) S/P biventricular cardiac pacemaker procedure: s/p biventricular cardiac pacemaker placed with AVN by Dr. Araiza Secondary to atrial fibrillation with RVR despite AV anna blocking agents Procedure complicated by large left-sided pneumothorax 50%, ABG pH 7.11, CO2 97, HCO3 31 Appreciate urology input and recommendation No acute cardiac problem (4) Hyperglycemia: ICU hyperglycemia protocol A1C 5.9 in 03/2018 A1C : 6.2 (5) Atrial fibrillation: s/p Biv Pacemaker placement by Dr. Araiza usual Diltiazem, Digoxin resumed -- Metoprolol added for better HR control -- HR improved and controlled (6) CHF (congestive heart failure): euvolemic last echo Date: 05/18/18: LVEF 50-54%. Mild inferior wall HK. Basal septum is thickened and angulated consistent with sigmoid septum. Masked dyssynergy of the interventricular septum and apical septum. Moderately increased LV wall thickness. No significant valvular disease. No acute fluid overload (7) CKD (chronic kidney disease), stage III: baseline Cr 1.1 mild elevation in Cr to 1.39 received IV fluids, now back to baseline (8) COPD (chronic obstructive pulmonary disease): severe COPD on chronic 4L O2 resume trelegy (or house stock ICS/LABA/anticholinergic) when able not in exacerbation As above (9) Depression: on zoloft (10) DVT prophylaxis: On chronic Coumadin presently on hold in light of possible procedures with chest tube Currently on Lovenox subcu use twice a day To likely be discharged on Coumadin and Lovenox Subjective 07/12 Patient was seen and examined in telemetry unit Admitted for elective pacemaker placement for uncontrolled atrial fibrillation Complicated by pneumothorax paravertebrally and required intubation and chest tube insertion Now extubated but having ongoing hemolytic from the chest tube site Denies any significant symptoms The chest tube has been draining a little Physical Exam Vital Signs (Past 24 Hours): Last Vital Signs Temp 36.4 C L 07/12/18 11:05 Pulse 57 L 07/12/18 11:05 Resp 17 07/12/18 11:05 BP 111/61 07/12/18 11:05 Pulse Ox 95 07/12/18 11:05 Physical Exam: Minimal shortness of breath at rest Constitutional: + ill appearing Eyes: PERRL, conjunctivae normal, anicteric sclerae ENMT: external ear and nose normal, oropharynx normal Neck: trachea midline, no thyromegaly Respiratory: + respiratory distress Auscultation: + diminished lung sounds, + crackles (Minimal bibasilar crackles) and + wheezes (Occasional wheezing bilaterally) Cardiovascular: Heart Sounds: normal S1 and normal S2 Gastrointestinal (Abdomen): Inspection/Auscultation: abdomen normal to inspection and normal bowel sounds Musculoskeletal: No acute arthritis involving any joints Results & Data Laboratory Results [facility] 07/12/18 05:46 Sodium 138 Potassium 3.4 L D Chloride 99 Carbon Dioxide 36 H BUN 18 Creatinine 1.00 Glucose 111 H Calcium 8.8 Medications Administered Current Inpatient Medications Acetaminophen (Tylenol) 650 mg PO Q4H PRN PRN Reason: Pain Stop: 08/06/18 12:06 Last Admin: 07/10/18 17:12 Dose: 650 mg Documented by: Albuterol (Ventolin Hfa) 2 puffs INH Q4H PRN PRN Reason: Shortness Of Breath Or Wheezing Stop: 08/06/18 12:08 Bisacodyl (Dulcolax) 5 mg PO DAILY PRN PRN Reason: CONSTIPATION Stop: 08/08/18 09:00 Last Admin: 07/10/18 08:30 Dose: 5 mg Documented by: Digoxin (Lanoxin) 0.125 mg PO DAILY@1600 [facility] Stop: 08/07/18 15:59 Last Admin: 07/11/18 15:33 Dose: 0.125 mg Documented by: Diltiazem HCl (Cardizem Cd) 300 mg PO QAM [facility] Stop: 08/07/18 08:59 Last Admin: 07/12/18 09:53 Dose: 300 mg Documented by: Diltiazem HCl (Cardizem Cd) 120 mg PO QAM [facility] Stop: 08/07/18 08:59 Last Admin: 07/12/18 09:52 Dose: 120 mg Documented by: Docusate Sodium (Colace) 100 mg PO BID PRN PRN Reason: CONSTIPATION Stop: 08/08/18 09:01 Last Admin: 07/11/18 08:13 Dose: 100 mg Documented by: Enoxaparin Sodium (Lovenox) 100 mg SQ BID [facility] Stop: 08/08/18 09:14 Last Admin: 07/12/18 09:51 Dose: 100 mg Documented by: Hydrocortisone Valerate (Westcort 0.2%) 1 appln EXT BID [facility] Stop: 08/06/18 20:59 Last Admin: 07/12/18 09:53 Dose: 1 appln Documented by: Lorazepam (Ativan) 0.5 mg PO BID PRN PRN Reason: Anxiety Stop: 08/06/18 12:08 Last Admin: 07/11/18 21:54 Dose: 0.5 mg Documented by: Magnesium Oxide (Mag-Ox) 400 mg PO BID [facility] Stop: 08/07/18 08:59 Last Admin: 07/12/18 09:54 Dose: 400 mg Documented by: Meclizine HCl (Antivert) 25 mg PO TID PRN PRN Reason: dizziness Stop: 08/06/18 12:08 Metoprolol Succinate (Toprol Xl) 25 mg PO QAM [facility] Stop: 08/09/18 09:14 Last Admin: 07/12/18 09:51 Dose: 25 mg Documented by: Multivitamins (Multivitamin Tab) 1 tab PO DAILY [facility] Stop: 08/07/18 08:59 Last Admin: 07/12/18 09:52 Dose: 1 tab Documented by: Multivitamins/Minerals (Caltrate Plus) 1 tab PO BID [facility] Stop: 08/07/18 08:59 Last Admin: 07/12/18 09:51 Dose: 1 tab Documented by: Pantoprazole Sodium (Protonix) 40 mg PO QAM [facility] Stop: 08/08/18 08:59 Last Admin: 07/12/18 09:51 Dose: 40 mg Documented by: Polyethylene Glycol (Miralax Powder Packet) 17 gm PO DAILY PRN PRN Reason: CONSTIPATION Stop: 08/08/18 09:00 Last Admin: 07/11/18 08:13 Dose: 17 gm Documented by: Potassium Chloride (Klor-Con M10) 10 meq PO DAILY [facility] Stop: 08/12/18 08:59 Fluticasone/Salmeterol (Advair Diskus 250/50) 1 puffs INH BID [facility] Stop: 08/06/18 20:59 Last Admin: 07/12/18 09:51 Dose: 1 puffs Documented by: Sertraline HCl (Zoloft) 150 mg PO QAM [facility] Stop: 08/07/18 08:59 Last Admin: 07/12/18 09:52 Dose: 150 mg Documented by: Tiotropium [place] (Spiriva) 1 puffs INH DAILY [facility] Stop: 08/07/18 08:59 Last Admin: 07/12/18 09:53 Dose: 1 puffs Documented by: Tramadol HCl (Ultram) 50 mg PO Q6H PRN PRN Reason: Pain Stop: 08/06/18 12:08 Last Admin: 07/11/18 21:53 Dose: 50 mg Documented by: Triamterene/HCTZ (Maxzide 37.5/25mg) 1 tab PO QAM [facility] Stop: 08/07/18 08:59 Last Admin: 07/12/18 09:53 Dose: 1 tab Documented by: Warfarin Sodium (Coumadin) 2.5 mg PO MoWe@1600 [facility] Stop: 08/11/18 15:59 Warfarin Sodium (Coumadin) 5 mg PO SuTuThFrSa@1600 [facility] Stop: 08/08/18 15:59 Last Admin: 07/10/18 15:10 Dose: 5 mg Documented by: (1) Atrial fibrillation Atrial fibrillation type: permanent Qualified Code(s): I48.2 - Chronic atrial fibrillation (2) CHF (congestive heart failure) Heart failure type: diastolic Heart failure chronicity: chronic Qualified Code(s): I50.32 - Chronic diastolic (congestive) heart failure (3) COPD (chronic obstructive pulmonary disease) COPD type: emphysema Emphysema type: unspecified Qualified Code(s): J43.9 - Emphysema, unspecified (4) Depression Depression Type: major depressive disorder Major depression recurrence: unspecified whether recurrent Active/Remission status: remission status unspecified Qualified Code(s): F32.9 - Major depressive disorder, single episode, unspecified
[2018-07-12] MEDS ORDERED: WARFARIN SOD 2.5 MG TAB PO SCH (16:00)
[2018-07-12] MEDS: DIGOXIN 0.125 MG TAB PO SCH (17:28)
[2018-07-12] MEDS: TRAMADOL HCL 50 MG TABLET PO PRN (20:22)
[2018-07-12] MEDS: LORazepam 0.5 MG TAB PO PRN (20:23)
--- NOTE | 2018-07-13 07:05 | XRay Report ---
XR chest 1V portable CLINICAL HISTORY: pneumothorax COMPARISON STUDY: 07/12/2018 FINDINGS: No significant residual left-sided pneumothorax. Like atelectasis left base. Lungs otherwis e appear clear. Position of the pacemaker remains unchanged. IMPRESSION: No significant residual pneumothorax. The lungs remain clear. The above report was generated using voice recognition software. It may contain grammatical, syntax or spelling errors. Electronically signed by: Frankie Schuler M.D. 07/13/2018 7:04 AM
[2018-07-13 07:40] LABS: Creatinine Clr Calc Pharmacy 73.4 ml/min; Est GFR (African American) 72.2; Est GFR (Non-African American) 62.3
--- NOTE | 2018-07-13 09:15 | Cardiology Progress Note ---
Date of Service July 13, 2018 Assessment & Plan (1) Pneumothorax on left: Chest tube remains in place. Chest x-ray demonstrates resolve of apical pneumothorax Once chest tube removed would recommend resuming anticoagulation (2) Chronic atrial fibrillation: Heart rate ranging from 90-110 bpm. Continue diltiazem and digoxin. Will increase metoprolol slightly Continue digoxin and diltiazem (3) S/P biventricular cardiac pacemaker procedure: Diaphragmatic and chest wall stimulation stopped after reprogramming of pacemaker Subjective Patient seen and examined at the bedside, chart medications, telemetry reviewed. More comfortable this morning less respiratory distress heart rate trending towards better control. No chest pains or discomfort Physical Exam Vital Signs (Past 24 Hours): Last Vital Signs Temp 36.9 C 07/13/18 07:15 Pulse 82 07/13/18 07:15 Resp 18 07/13/18 07:15 BP 100/50 L 07/13/18 07:15 Pulse Ox 98 07/13/18 07:15 Constitutional: well developed and + ill appearing Eyes: PERRL, conjunctivae normal, anicteric sclerae Neck: trachea midline, no thyromegaly + thick neck Cardiovascular: Rate/Rhythm: + irregularly irregular ( distant heart sounds) Extremities: + pedal edema (Trace)
[2018-07-13] MEDS ORDERED: METOPROLOL SUCC 25MG EXT REL TAB PO ONE (09:30)
[2018-07-13] MEDS: dilTIAZem HCL 120 MG CAPCR PO SCH (09:36)
[2018-07-13] MEDS: FLUTICASONE/SALMETEROL 250/50 (ADVAIR) 14 PUFF/1 INHALER INH SCH ×2 (09:36→20:43)
[2018-07-13] MEDS: ENOXAPARIN 100 MG/1ML SYR SQ SCH ×2 (09:37→20:44)
[2018-07-13] MEDS: MULTIVITAMIN TAB PO SCH (09:37)
[2018-07-13] MEDS: MAGNESIUM OXIDE 400 MG TAB PO SCH ×2 (09:37→20:44)
[2018-07-13] MEDS: PANTOprazole 40 MG TAB PO SCH (09:37)
[2018-07-13] MEDS: TRIAMTERENE/HCTZ 37.5/25MG TAB PO SCH (09:37)
[2018-07-13] MEDS: TIOTROPIUM BROMIDE 5 PUFF/90 MCG INH INH SCH (09:38)
[2018-07-13] MEDS: SERTRALINE HCL 50 MG TABLET PO SCH (09:38)
[2018-07-13] MEDS: dilTIAZem HCL 300 MG CAPCR PO SCH (09:38)
[2018-07-13] MEDS: POTASSIUM CHLORIDE 10 MEQ TABCR PO SCH (09:38)
[2018-07-13] MEDS: HYDROCORTISONE VAL 0.2% CRM 15GM TUBE EXT SCH ×2 (09:42→20:45)
[2018-07-13] MEDS: METOPROLOL SUCC 25MG EXT REL TAB PO SCH (10:15)
[2018-07-13 11:30] LABS: BUN Creatinine Ratio 18.8 (10-20); Calcium 8.7 mg/dl (8.5-10.1); Creatinine Clr Calc Pharmacy 76.6 ml/min; Est GFR (African American) 76.1; Est GFR (Non-African American) 65.7; Potassium 3.4 mmol/L (3.5-5.1)
[2018-07-13] MEDS: CALCIUM 600MG + VIT D 400 IU TAB PO SCH ×2 (12:34→20:43)
--- NOTE | 2018-07-13 13:37 | Hospitalist Progress Note ---
Date of Service July 13, 2018 Assessment & Plan (1) Acute on chronic respiratory failure with hypoxia and hypercapnia: Has history of severe COPD on 4 L of oxygen at home Developed acute respiratory failure with pneumothorax during placement of pacemaker -- (+) air leak, seems to be expanding further management per Thoracic Surgery SVC -- coumadin on hold for possible procedure on Lovenox SC BID --Appreciate thoracic surgery input --Chest 2 has been draining less and less and to like to come out today --We will plan for discharge following the chest tube is out (2) Pneumothorax on left: As above (3) S/P biventricular cardiac pacemaker procedure: s/p biventricular cardiac pacemaker placed with AVN by Dr. Araiza Secondary to atrial fibrillation with RVR despite AV anna blocking agents Procedure complicated by large left-sided pneumothorax 50%, ABG pH 7.11, CO2 97, HCO3 31 Appreciate urology input and recommendation No acute cardiac problem (4) Hyperglycemia: ICU hyperglycemia protocol A1C 5.9 in 03/2018 A1C : 6.2 (5) Atrial fibrillation: s/p Biv Pacemaker placement by Dr. Araiza usual Diltiazem, Digoxin resumed -- Metoprolol added for better HR control -- HR improved and controlled (6) CHF (congestive heart failure): euvolemic last echo Date: 05/18/18: LVEF 50-54%. Mild inferior wall HK. Basal septum is thickened and angulated consistent with sigmoid septum. Masked dyssynergy of the interventricular septum and apical septum. Moderately increased LV wall thickness. No significant valvular disease. No acute fluid overload (7) CKD (chronic kidney disease), stage III: baseline Cr 1.1 mild elevation in Cr to 1.39 received IV fluids, now back to baseline (8) COPD (chronic obstructive pulmonary disease): severe COPD on chronic 4L O2 resume trelegy (or house stock ICS/LABA/anticholinergic) when able not in exacerbation As above (9) Depression: on zoloft (10) DVT prophylaxis: On chronic Coumadin presently on hold in light of possible procedures with chest tube Currently on Lovenox subcu use twice a day To likely be discharged on Coumadin and Lovenox Will start anticoagulation following taking out the chest tube Subjective 07/12 Patient was seen and examined in telemetry unit Admitted for elective pacemaker placement for uncontrolled atrial fibrillation Complicated by pneumothorax paravertebrally and required intubation and chest tube insertion Now extubated but having ongoing hemolytic from the chest tube site Denies any significant symptoms The chest tube has been draining a little 07/13 The patient was seen and examined in the telemetry unit She remains a stable and her heart rate is controlled on medications Her chest tube is draining very minimal and hopefully that will, today She is willing to go home soon Physical Exam Vital Signs (Past 24 Hours): Last Vital Signs Temp 36.8 C 07/13/18 11:17 Pulse 108 H 07/13/18 11:17 Resp 18 07/13/18 11:17 BP 100/75 07/13/18 11:17 Pulse Ox 97 07/13/18 11:17 Physical Exam: No apparent distress at rest Constitutional: well nourished; no acute distress Eyes: PERRL, conjunctivae normal, anicteric sclerae ENMT: external ear and nose normal, oropharynx normal Neck: trachea midline, no thyromegaly Respiratory: normal respiratory effort Auscultation: + diminished lung sounds Cardiovascular: Heart Sounds: normal S1 and normal S2 Gastrointestinal (Abdomen): Inspection/Auscultation: abdomen normal to inspection and normal bowel sounds Musculoskeletal: No acute arthritis in any joint Neurologic: Alert, awake and oriented x3 Results & Data Laboratory Results [facility] 07/13/18 07/13/18 06:58 10:47 Sodium 140 Potassium 3.4 L Chloride 101 Carbon Dioxide 37 H BUN 17 Creatinine 0.94 0.90 Glucose 100 H Calcium 8.7 Medications Administered Current Inpatient Medications Acetaminophen (Tylenol) 650 mg PO Q4H PRN PRN Reason: Pain Stop: 08/06/18 12:06 Last Admin: 07/10/18 17:12 Dose: 650 mg Documented by: Albuterol (Ventolin Hfa) 2 puffs INH Q4H PRN PRN Reason: Shortness Of Breath Or Wheezing Stop: 08/06/18 12:08 Bisacodyl (Dulcolax) 5 mg PO DAILY PRN PRN Reason: CONSTIPATION Stop: 08/08/18 09:00 Last Admin: 07/10/18 08:30 Dose: 5 mg Documented by: Digoxin (Lanoxin) 0.125 mg PO DAILY@1600 [facility] Stop: 08/07/18 15:59 Last Admin: 07/12/18 17:28 Dose: 0.125 mg Documented by: Diltiazem HCl (Cardizem Cd) 300 mg PO QAM [facility] Stop: 08/07/18 08:59 Last Admin: 07/13/18 09:38 Dose: 300 mg Documented by: Diltiazem HCl (Cardizem Cd) 120 mg PO QAM [facility] Stop: 08/07/18 08:59 Last Admin: 07/13/18 09:36 Dose: 120 mg Documented by: Docusate Sodium (Colace) 100 mg PO BID PRN PRN Reason: CONSTIPATION Stop: 08/08/18 09:01 Last Admin: 07/11/18 08:13 Dose: 100 mg Documented by: Enoxaparin Sodium (Lovenox) 100 mg SQ BID [facility] Stop: 08/08/18 09:14 Last Admin: 07/13/18 09:37 Dose: 100 mg Documented by: Hydrocortisone Valerate (Westcort 0.2%) 1 appln EXT BID [facility] Stop: 08/06/18 20:59 Last Admin: 07/13/18 09:42 Dose: Not Given Documented by: Lorazepam (Ativan) 0.5 mg PO BID PRN PRN Reason: Anxiety Stop: 08/06/18 12:08 Last Admin: 07/12/18 20:23 Dose: 0.5 mg Documented by: Magnesium Oxide (Mag-Ox) 400 mg PO BID [facility] Stop: 08/07/18 08:59 Last Admin: 07/13/18 09:37 Dose: 400 mg Documented by: Meclizine HCl (Antivert) 25 mg PO TID PRN PRN Reason: dizziness Stop: 08/06/18 12:08 Metoprolol Succinate ([facility] Xl) [facility] Stop: 08/13/18 08:59 Multivitamins (Multivitamin Tab) 1 tab PO DAILY [facility] Stop: 08/07/18 08:59 Last Admin: 07/13/18 09:37 Dose: 1 tab Documented by: Multivitamins/Minerals (Caltrate Plus) 1 tab PO BID [facility] Stop: 08/07/18 08:59 Last Admin: 07/13/18 12:34 Dose: 1 tab Documented by: Pantoprazole Sodium (Protonix) 40 mg PO QAM [facility] Stop: 08/08/18 08:59 Last Admin: 07/13/18 09:37 Dose: 40 mg Documented by: Polyethylene Glycol (Miralax Powder Packet) 17 gm PO DAILY PRN PRN Reason: CONSTIPATION Stop: 08/08/18 09:00 Last Admin: 07/11/18 08:13 Dose: 17 gm Documented by: Potassium Chloride (Klor-Con M10) 10 meq PO DAILY [facility] Stop: 08/12/18 08:59 Last Admin: 07/13/18 09:38 Dose: 10 meq Documented by: Fluticasone/Salmeterol (Advair Diskus 250/50) 1 puffs INH BID [facility] Stop: 08/06/18 20:59 Last Admin: 07/13/18 09:36 Dose: 1 puffs Documented by: Sertraline HCl (Zoloft) 150 mg PO QAM [facility] Stop: 08/07/18 08:59 Last Admin: 07/13/18 09:38 Dose: 150 mg Documented by: Tiotropium [place] (Spiriva) 1 puffs INH DAILY [facility] Stop: 08/07/18 08:59 Last Admin: 07/13/18 09:38 Dose: 1 puffs Documented by: Tramadol HCl (Ultram) 50 mg PO Q6H PRN PRN Reason: Pain Stop: 08/06/18 12:08 Last Admin: 07/12/18 20:22 Dose: 50 mg Documented by: Triamterene/HCTZ (Maxzide 37.5/25mg) 1 tab PO QAM [facility] Stop: 08/07/18 08:59 Last Admin: 07/13/18 09:37 Dose: 1 tab Documented by: Warfarin Sodium (Coumadin) 2.5 mg PO MoWe@1600 [facility] Stop: 08/11/18 15:59 Warfarin Sodium (Coumadin) 5 mg PO SuTuThFrSa@1600 [facility] Stop: 08/08/18 15:59 Last Admin: 07/10/18 15:10 Dose: 5 mg Documented by: (1) Atrial fibrillation Atrial fibrillation type: permanent Qualified Code(s): I48.2 - Chronic atrial fibrillation (2) CHF (congestive heart failure) Heart failure type: diastolic Heart failure chronicity: chronic Qualified Code(s): I50.32 - Chronic diastolic (congestive) heart failure (3) COPD (chronic obstructive pulmonary disease) COPD type: emphysema Emphysema type: unspecified Qualified Code(s): J43.9 - Emphysema, unspecified (4) Depression Depression Type: major depressive disorder Major depression recurrence: unspecified whether recurrent Active/Remission status: remission status unspecified Qualified Code(s): F32.9 - Major depressive disorder, single episode, unspecified
--- NOTE | 2018-07-13 14:00 | XRay Report ---
XR chest 1V portable HISTORY: Chest tube removal COMPARISON: Chest 07/13/2018. FINDINGS: The heart remains mildly enlarged. Left-sided dual-chamber pacemaker persists. A few bibasi lar linear densities favor scarring or atelectasis. This is not significantly change. Trace bilateral pleural effusions. No new focal lung consolidations. No evidence for pulmonary edema. There is again noted a small left apical pneumothorax. This demonstrates a maximal pleural gap of 12 mm. This has d ecreased in size from the 07/12/2018 examination. IMPRESSION: Decrease in size in the small left apical pneumothorax. Electronically signed by: Rocky Ordaz M.D. 07/13/2018 1:59 PM
--- NOTE | 2018-07-13 15:57 | Progress Note ---
DATE: 07/13/2018 Christa Johnson looks much better. On 2 liters, she has 98% sats. She had no air leak for 2 days and we removed her pigtail catheter. I disagree with the radiology reading of her CXR.. I think it is unchanged from before we removed the tube. She is clinically stable. I would wean her off the oxygen and get her up moving. MTDD
[2018-07-13] MEDS: DIGOXIN 0.125 MG TAB PO SCH (16:46)
[2018-07-13] MEDS: LORazepam 0.5 MG TAB PO PRN (20:48)
[2018-07-13] MEDS: TRAMADOL HCL 50 MG TABLET PO PRN (20:48)
[2018-07-14] MEDS: ACETAMINOPHEN 325 MG TAB PO PRN (00:08)
[2018-07-14 06:34] LABS: Hematocrit (blood only) 36.2 % (37-47); Hemoglobin 11.1 g/dL (12.0-16.0); Mean Corpuscular Hgb Conc 30.7 g/dL (32-36); Mean Corpuscular Volume 87.7 fL (80-100); Mean Platelet Volume 10.4 fL (7.4-10.4); Platelet Count 152 K/uL (130-400); RDW Coefficient of Variation 15.5 % (11.5-14.5); RDW Standard Deviation 49.8 fL (36.4-46.3); Red Blood Count 4.13 M/uL (4.2-5.4); White Blood Count 7.08 K/uL (4.8-10.8)
--- NOTE | 2018-07-14 07:54 | XRay Report ---
XR chest 1V portable CLINICAL HISTORY: pneumothorax COMPARISON STUDY: 07/13/2018 FINDINGS: The cardiac and sternal contours remain stable. There is a left subclavian dual-chamber radha tral venous pacemaker. No definite pneumothorax persists although the lung apex is partially obscured due to overlying oxygen tubing. There is no failure. There is no lobar consolidation. There is minor linear atelectasis/scarring at the left lung base. IMPRESSION: 1. Persistent left basilar atelectasis/scarring 2. The previously identified left apical pneumothorax is not visualized with certainty, although the lung apex is difficult to evaluate due to overlying oxygen tubing Electronically signed by: Issa Aviles M.D. 07/14/2018 7:53 AM
[2018-07-14] MEDS: MULTIVITAMIN TAB PO SCH (08:02)
[2018-07-14] MEDS: dilTIAZem HCL 120 MG CAPCR PO SCH (08:02)
[2018-07-14] MEDS: MAGNESIUM OXIDE 400 MG TAB PO SCH (08:02)
[2018-07-14] MEDS: POTASSIUM CHLORIDE 10 MEQ TABCR PO SCH (08:02)
--- NOTE | 2018-07-14 08:02 | Progress Note ---
DATE: 07/14/2018 Ms. Johnson was seen today on 07/14/18. On 3 liters she has 99% saturations. Her chest x-ray looked fine. She has no evidence of pneumothorax. The dressing on her left lateral chest can be removed tomorrow. We will sign off of Christa Johnson. We would be glad to see her back at any time.
[2018-07-14] MEDS: PANTOprazole 40 MG TAB PO SCH (08:03)
[2018-07-14] MEDS: CALCIUM 600MG + VIT D 400 IU TAB PO SCH (08:03)
[2018-07-14] MEDS: SERTRALINE HCL 50 MG TABLET PO SCH (08:03)
[2018-07-14] MEDS: dilTIAZem HCL 300 MG CAPCR PO SCH (08:03)
[2018-07-14] MEDS: TRIAMTERENE/HCTZ 37.5/25MG TAB PO SCH (08:03)
[2018-07-14] MEDS: FLUTICASONE/SALMETEROL 250/50 (ADVAIR) 14 PUFF/1 INHALER INH SCH (08:04)
[2018-07-14] MEDS: ENOXAPARIN 100 MG/1ML SYR SQ SCH (08:04)
[2018-07-14] MEDS: HYDROCORTISONE VAL 0.2% CRM 15GM TUBE EXT SCH (08:05)
[2018-07-14] MEDS ORDERED: METOPROLOL SUCC 25MG EXT REL TAB PO SCH (09:00)
--- NOTE | 2018-07-14 10:42 | Cardiology Progress Note ---
Date of Service July 14, 2018 Assessment & Plan (1) Pneumothorax on left: Chest tube remains in place. Chest x-ray demonstrates resolve of apical pneumothorax Once chest tube removed would recommend resuming anticoagulation (2) Chronic atrial fibrillation: Heart rate ranging from 90-110 bpm. Continue diltiazem and digoxin. Will increase metoprolol slightly Continue digoxin and diltiazem (3) S/P biventricular cardiac pacemaker procedure: Diaphragmatic and chest wall stimulation stopped after reprogramming of pacemaker Subjective Note racing heart or palpitations no fevers or chart Patient seen and examined at the bedside, chart medications, telemetry reviewed. Sitting out of bed in chair more comfortable today. Chest tube removed and x-r ay appears stable this morning no pneumothorax Physical Exam Vital Signs (Past 24 Hours): Last Vital Signs Temp 36.8 C 07/14/18 07:20 Pulse 84 07/14/18 07:20 Resp 18 07/14/18 07:20 BP 98/62 L 07/14/18 07:20 Pulse Ox 99 07/14/18 07:20 Constitutional: well developed and + ill appearing Eyes: PERRL, conjunctivae normal, anicteric sclerae Neck: trachea midline, no thyromegaly + thick neck Cardiovascular: Rate/Rhythm: + irregularly irregular ( distant heart sounds) Extremities: + pedal edema (Trace)
--- NOTE | 2018-07-14 10:48 | Cardiology Progress Note ---
Date of Service July 14, 2018 Assessment & Plan (1) Pneumothorax on left: Chest tube out no further evidence of pneumothorax patient improving (2) Chronic atrial fibrillation: Heart rates controlled on current medical regimen patient will need resu mption of warfarin Anticipate referral for AV junction ablation in the future. (3) S/P biventricular cardiac pacemaker procedure: Diaphragmatic and chest wall stimulation stopped after reprogramming of pacemaker Patient has scheduled outpatient wound check and pacemaker clinic follow-up on 07/16 Alicja Santizo Subjective Patient seen and examined, chart medications telemetry reviewed. Is sitting out of bed in chair and feeling improved today. Chest x-ray earlier without pneumothorax. Heart rates under better control. No fevers chills or sweats no dizziness or lightheadedness Physical Exam Vital Signs (Past 24 Hours): Last Vital Signs Temp 36.8 C 07/14/18 07:20 Pulse 84 07/14/18 07:20 Resp 18 07/14/18 07:20 BP 98/62 L 07/14/18 07:20 Pulse Ox 99 07/14/18 07:20 Constitutional: WD/WN, vitals as above Eyes: PERRL, conjunctivae normal, anicteric sclerae ENMT: external ear and nose normal, oropharynx normal Neck: trachea midline, no thyromegaly Respiratory: Diminished breath sounds but clear Cardiovascular: Rate/Rhythm: + irregularly irregular Heart Sounds: normal S1 and normal S2 Vessels: no JVD Extremities: no pedal edema Gastrointestinal (Abdomen): normal bowel sounds, soft, nontender, no hepatosplenomegaly Musculoskeletal: no cyanosis or clubbing, extremities motor strength 5/5 Results & Data Laboratory Results Laboratory Results - last 24 hr 07/13/18 07/13/18 07/14/18 10:47 10:47 05:56 WBC 7.08 RBC 4.13 L Hgb 11.1 L Hct 36.2 L MCV 87.7 MCH 26.9 MCHC 30.7 L RDW Std Deviation 49.8 H RDW Coeff of Daniela 15.5 H Plt Count 152 MPV 10.4 Sodium 140 Potassium 3.4 L Chloride 101 Carbon Dioxide 37 H Anion Gap 2.0 L BUN 17 Creatinine 0.90 Est Cr Clr Drug Dosing 76.6 Est GFR ( Amer) 76.1 Est GFR (Non-Af Amer) 65.7 BUN/Creatinine Ratio 18.8 Glucose 100 H Calcium 8.7 Digoxin 0.7 L
[2018-07-14] MEDS: TIOTROPIUM BROMIDE 5 PUFF/90 MCG INH INH SCH (11:21)
--- NOTE | 2018-07-14 11:49 | Hospitalist Progress Note ---
Date of Service July 14, 2018 Assessment & Plan (1) Acute on chronic respiratory failure with hypoxia and hypercapnia: Has history of severe COPD on 4 L of oxygen at home Developed acute respiratory failure with pneumothorax during placement of pacemaker -- (+) air leak, seems to be expanding further management per Thoracic Surgery S[facility] -- coumadin on hold for possible procedure on Lovenox SC BID --Appreciate thoracic surgery input --Chest tube has been draining less and less and to like to come out today --Chest tube has been discontinued yesterday -Chest x-ray this morning did not show any pneumothorax -She has been clinically a lot better -She will be discharged this afternoon (2) Pneumothorax on left: As above (3) S/P biventricular cardiac pacemaker procedure: s/p biventricular cardiac pacemaker placed with AVN by Dr. Araiza Secondary to atrial fibrillation with RVR despite AV anna blocking agents Procedure complicated by large left-sided pneumothorax 50%, ABG pH 7.11, CO2 97, HCO3 31 Appreciate urology input and recommendation No acute cardiac problem Heart rate remains stable on pacemaker (4) Hyperglycemia: ICU hyperglycemia protocol A1C 5.9 in 03/2018 A1C : 6.2 (5) Atrial fibrillation: s/p Biv Pacemaker placement by Dr. Araiza usual Diltiazem, Digoxin resumed -- Metoprolol added for better HR control -- HR is controlled --Will restart Coumadin (6) CHF (congestive heart failure): euvolemic last echo Date: 05/18/18: LVEF 50-54%. Mild inferior wall HK. Basal septum is thickened and angulated consistent with sigmoid septum. Masked dyssynergy of the interventricular septum and apical septum. Moderately increased LV wall thicknes s. No significant valvular disease. No acute fluid overload (7) CKD (chronic kidney disease), stage III: baseline Cr 1.1 mild elevation in Cr to 1.39 received IV fluids, now back to baseline (8) COPD (chronic obstructive pulmonary disease): severe COPD on chronic 4L O2 resume trelegy (or house stock ICS/LABA/anticholinergic) when able not in exacerbation As above (9) Depression: on zoloft (10) DVT prophylaxis: On chronic Coumadin presently on hold in light of possible procedures with chest tube Currently on Lovenox subcu use twice a day To likely be discharged on Coumadin and Lovenox Will start anticoagulation following taking out the chest tube Coumadin will be restarted on discharge Subjective 07/14 The patient was seen and examined in telemetry unit She has been feeling a lot better following taking of the chest tube No pneumothorax noted on x-ray He has had physical therapy and did well with that Does not require any 2 steps before discharge 07/12 Patient was seen and examined in telemetry unit Admitted for elective pacemaker placement for uncontrolled atrial fibrillation Complicated by pneumothorax paravertebrally and required intubation and chest tube insertion Now extubated but having ongoing hemolytic from the chest tube site Denies any significant symptoms The chest tube has been draining a little 07/13 The patient was seen and examined in the telemetry unit She remains a stable and her heart rate is controlled on medications Her chest tube is draining very minimal and hopefully that will, today She is willing to go home soon Physical Exam Vital Signs (Past 24 Hours): Last Vital Signs Temp 36.6 C 07/14/18 11:23 Pulse 90 07/14/18 11:23 Resp 18 07/14/18 11:23 BP 85/63 L 07/14/18 11:23 Pulse Ox 97 07/14/18 11:23 Physical Exam: Sitting on a chair without any symptoms Constitutional: well nourished; no acute distress Eyes: PERRL, conjunctivae normal, anicteric sclerae ENMT: external ear and nose normal, oropharynx normal Neck: trachea midline, no thyromegaly Respiratory: normal respiratory effort Auscultation: + diminished lung sounds and + crackles (Minimal to no crackles at the bases) Cardiovascular: Heart Sounds: normal S1 and normal S2 Extremities: + edema (Trace edema bilaterally) Gastrointestinal (Abdomen): Inspection/Auscultation: abdomen normal to inspection and normal bowel sounds Musculoskeletal: No acute arthritis any of the joints Neurologic: Alert, awake and oriented x3 Results & Data Laboratory Results Short CBC 07/14/18 Range/Units 05:56 WBC 7.08 (4.8-10.8) K/uL Hgb 11.1 L (12.0-16.0) g/dL Hct 36.2 L (37-47) % Plt Count 152 (130-400) K/uL Medications Administered Current Inpatient Medications Acetaminophen (Tylenol) 650 mg PO Q4H PRN PRN Reason: Pain Stop: 08/06/18 12:06 Last Admin: 07/14/18 00:08 Dose: 650 mg Documented by: Albuterol (Ventolin Hfa) 2 puffs INH Q4H PRN PRN Reason: Shortness Of Breath Or Wheezing Stop: 08/06/18 12:08 Bisacodyl (Dulcolax) 5 mg PO DAILY PRN PRN Reason: CONSTIPATION Stop: 08/08/18 09:00 Last Admin: 07/10/18 08:30 Dose: 5 mg Documented by: Digoxin (Lanoxin) 0.125 mg PO DAILY@1600 [facility] Stop: 08/07/18 15:59 Last Admin: 07/13/18 16:46 Dose: 0.125 mg Documented by: Diltiazem HCl (Cardizem Cd) 300 mg PO QAM [facility] Stop: 08/07/18 08:59 Last Admin: 07/14/18 08:03 Dose: 300 mg Documented by: Diltiazem HCl (Cardizem Cd) 120 mg PO QAM [facility] Stop: 08/07/18 08:59 Last Admin: 07/14/18 08:02 Dose: 120 mg Documented by: Docusate Sodium (Colace) 100 mg PO BID PRN PRN Reason: CONSTIPATION Stop: 08/08/18 09:01 Last Admin: 07/11/18 08:13 Dose: 100 mg Documented by: Enoxaparin Sodium (Lovenox) 100 mg SQ BID [facility] Stop: 08/08/18 09:14 Last Admin: 07/14/18 08:04 Dose: Not Given Documented by: Hydrocortisone Valerate (Westcort 0.2%) 1 appln EXT BID [facility] Stop: 08/06/18 20:59 Last Admin: 07/14/18 08:05 Dose: Not Given Documented by: Lorazepam (Ativan) 0.5 mg PO BID PRN PRN Reason: Anxiety Stop: 08/06/18 12:08 Last Admin: 07/13/18 20:48 Dose: 0.5 mg Documented by: Magnesium Oxide (Mag-Ox) 400 mg PO BID [facility] Stop: 08/07/18 08:59 Last Admin: 07/14/18 08:02 Dose: 400 mg Documented by: Meclizine HCl (Antivert) 25 mg PO TID PRN PRN Reason: dizziness Stop: 08/06/18 12:08 Metoprolol Succinate (Toprol Xl) 37.5 mg PO QAM [facility] Stop: 08/13/18 08:59 Last Admin: 07/14/18 08:03 Dose: 37.5 mg Documented by: Multivitamins (Multivitamin Tab) 1 tab PO DAILY [facility] Stop: 08/07/18 08:59 Last Admin: 07/14/18 08:02 Dose: 1 tab Documented by: Multivitamins/Minerals (Caltrate Plus) 1 tab PO BID [facility] Stop: 08/07/18 08:59 Last Admin: 07/14/18 08:03 Dose: 1 tab Documented by: Pantoprazole Sodium (Protonix) 40 mg PO QAM [facility] Stop: 08/08/18 08:59 Last Admin: 07/14/18 08:03 Dose: 40 mg Documented by: Polyethylene Glycol (Miralax Powder Packet) 17 gm PO DAILY PRN PRN Reason: CONSTIPATION Stop: 08/08/18 09:00 Last Admin: 07/11/18 08:13 Dose: 17 gm Documented by: Potassium Chloride (Klor-Con M10) 10 meq PO DAILY [facility] Stop: 08/12/18 08:59 Last Admin: 07/14/18 08:02 Dose: 10 meq Documented by: Fluticasone/Salmeterol (Advair Diskus 250/50) 1 puffs INH BID [facility] Stop: 08/06/18 20:59 Last Admin: 07/14/18 08:04 Dose: 1 puffs Documented by: Sertraline HCl (Zoloft) 150 mg PO QAM [facility] Stop: 08/07/18 08:59 Last Admin: 07/14/18 08:03 Dose: 150 mg Documented by: Tiotropium [place] (Spiriva) 1 puffs INH DAILY [facility] Stop: 08/07/18 08:59 Last Admin: 07/14/18 11:21 Dose: 1 puffs Documented by: Tramadol HCl (Ultram) 50 mg PO Q6H PRN PRN Reason: Pain Stop: 08/06/18 12:08 Last Admin: 07/13/18 20:48 Dose: 50 mg Documented by: Triamterene/HCTZ (Maxzide 37.5/25mg) 1 tab PO QAM [facility] Stop: 08/07/18 08:59 Last Admin: 07/14/18 08:03 Dose: 1 tab Documented by: Warfarin Sodium (Coumadin) 2.5 mg PO MoWe@1600 [facility] Stop: 08/11/18 15:59 Warfarin Sodium (Coumadin) 5 mg PO SuTuThFrSa@1600 [facility] Stop: 08/08/18 15:59 Last Admin: 07/10/18 15:10 Dose: 5 mg Documented by: (1) Atrial fibrillation Atrial fibrillation type: permanent Qualified Code(s): I48.2 - Chronic atrial fibrillation (2) CHF (congestive heart failure) Heart failure type: diastolic Heart failure chronicity: chronic Qualified Code(s): I50.32 - Chronic diastolic (congestive) heart failure (3) COPD (chronic obstructive pulmonary disease) COPD type: emphysema Emphysema type: unspecified Qualified Code(s): J43.9 - Emphysema, unspecified (4) Depression Depression Type: major depressive disorder Major depression recurrence: unspe cified whether recurrent Active/Remission status: remission status unspecified Qualified Code(s): F32.9 - Major depressive disorder, single episode, unspecified
[2018-07-14] MEDS ORDERED: WARFARIN SOD 5 MG TAB PO STA (16:11)
[2018-07-14] MEDS: DIGOXIN 0.125 MG TAB PO SCH (17:22)
--- NOTE | 2018-07-15 00:33 | Operative Report ---
DATE OF OPERATION: 07/07/2018 PREOPERATIVE DIAGNOSIS: Permanent atrial fibrillation with rapid ventricular response despite high dose of AV anna blockers. POSTOPERATIVE DIAGNOSIS: Permanent atrial fibrillation with rapid ventricular response despite high dose of AV anna blockers. PROCEDURE: A biventricular rate responsive permanent pacemaker in preparation for an AV anna ablation (the AV node ablation was deferred due to the length of the device procedure). SURGEON: [place] Araiza DO. MILKING SYSTEM INSTALLER: None. ANESTHESIA: Monitored anesthetic care administered by anesthesiology. They gave a total of 6 mg of Versed, 200 mcg of fentanyl, and 1200 mg of propofol. INTRAVENOUS FLUIDS: 600 mL. CONTRAST: 30 mL. ADDITIONAL MEDICINES: 10 mg of metoprolol. ANTIBIOTICS: Clindamycin. BLOOD LOSS: 30 mL. URINE OUTPUT: Not applicable. SPECIMENS: None. FINDINGS: See below. DRAINS: None. CONDITION: Stable. COMPLICATIONS: Pneumothorax of the left requiring a chest tube after procedure as well as intubation due to acidosis after procedure, but during the procedure, she was completely stable. INDICATIONS: This is a 67-year-old female with a past medical history for permanent atrial fibrillation with rapid ventricular response despite high dose calcium channel leah and digoxin. She is on Coumadin with a CHADS2-VASc score of 3, nonischemic cardiomyopathy, ejection fraction of 50% in April 2018, chronic right-sided heart failure, as well as diastolic heart failure, [place] Heart Association class III, pulmonary hypertension, severe COPD with emphysema, on chronic oxygen, small PFO via [facility] from 2013 with left to right shunting, Raynaud's syndrome, prior tobacco use, chronic kidney disease stage III, depression, history of a spontaneous pneumothorax in the left in 2004 and due to possibly have a recent hip replacement. Secondary to the permanent atrial fibrillation with rapid ventricular response despite AV anna blockers, she was recommended a biventricular pacemaker in preparation for an AV anna ablation. We initially were going to do the AV anna ablation, but the procedure took too long, so we opted not to. CONSENT: Consent was obtained prior to the patient going into the electrophysiology lab. The patient was informed of the risks, benefits, and alternatives to the procedure. Risks include, but not limited to, sudden cardiac , cardiac arrhythmias, cerebrovascular accident, myocardial infarction, injury to the blood vessels, chamber of the heart, lung, bleeding, and infection. The patient understood these risks and agreed to the procedure as planned. Informed consent was obtained. DESCRIPTION OF THE PROCEDURE: The patient was brought into the electrophysiology lab in a fasting state. Patient was connected to continuous cardiac monitoring. A timeout was performed to ensure patient identity and procedure correctly. The patient was prepped and draped over the left infraclavicular space in normal surgical standard fashion. She received prophylactic antibiotics prior to incision. Monitored anesthetic care was given throughout the procedure for patient's comfort level via anesthesiology. A 10 mL of 1% lidocaine and bupivacaine mixture was given in the left deltopectoral groove. Incision was made in the left deltopectoral groove. Blunt dissection was performed down to identify the cephalic vein. The cephalic vein was identified. It was tiny and it was isolated with 0 silk ties. We then set up to do a peripheral venogram using 10 mL of IV contrast diluted in 10 mL of saline followed by a 20 mL flush. This did identify a nice axillary vein. The vein was isolated using 0 silk ties, nicked with a 11 blade and a guidewire was inserted, however, I was having difficulty that it would not advance, so I did a peripheral venogram and initially there was a nice axillary vein; however, after trying to advance the wire through the cephalic, the vein must have spasmed, because we performed another peripheral venogram and the axillary vein had disappeared and was spasmed. We then gave 200 mcg of nitroglycerin peripherally. This did reopen the subclavian venous system, but it was very medial, so I ended up having to do a very medial subclavian stick; most likely that is what caused the slight pneumothorax. The guidewire was inserted without any resistance (the stick was pretty right at the sternoclavicular border) and I was able to advance 2 guidewires down through the sheath. An 8-[place] sheath was inserted over the one guidewire without any resistance. Dilator was removed and the second guidewire was inserted without any resistance. An 8-[place] sheath was removed and then the dilator was reinserted over it and then it was reinserted along the guidewire. The guidewire and dilator removed and then the right ventricular pacing lead was advanced into right ventricle and positioned into right ventricular apex under fluoroscopic guidance. There was adequate pacing and sensing thresholds and no diaphragmatic stimulation with high output pacing. The 8-[place] sheath was peeled away and the lead was fixated to pectoralis muscle using 0 silk suture. A 9.5-[place] sheath was then inserted over the retained guidewire without any resistance. Guidewire and dilator removed. The MPX Medtronic outer coronary sinus outer sheath was then advanced into the right atrium over a Glidewire without any resistance. Glidewire and dilator were removed. Then an EP diagnostic coronary sinus catheter was advanced through the MPX to cannulate the coronary sinus. I was able to do this not with too much difficulty. It was a little bit difficult advancing the MPX over the EP diagnostic catheter because there must have been a weird acute takeoff, but I ultimately was able to do this. Then we did a coronary sinus venogram which did not show much in the way of a posterior lateral branch; however, there was one small branch that had a very proximal takeoff close to the coronary sinus os. I was able to through an inner 90 cannulate this use over a Whisper guidewire and then advance the inner 90 and then the MPX and I was able to actually slide the S-shaped curve lead out there. However, when I went to split the inner 90 S, the lead pulled back, so then we reset up to do the whole entire same way again and I was able to do that, but at this time the lead pulled back when I was splitting the outer MPX. So then I got all new equipment and new outer sheath, advanced into the right atrium and then recannulated the coronary sinus with a diagnostic EP catheter. Then I ended up using a Choice PT wire and then advancing the outer MPX sheath through that and then I switched leads to the straight pacing LV lead and advanced this out. I then was able to split the MPX with the lead staying. There was adequate pacing and sensing thresholds and no diaphragmatic stimulation with high output pacing. The 9.5-[place] sheath was peeled and that is when I did appreciate some air creating the pneumothorax. The lead was fixated to pectoralis muscle using 0 silk suture. The pacemaker pocket was created using blunt dissection over the pectoralis muscle within the pectoral fascia. Then the pocket was flushed with copious amounts of bacitracin and saline wash and inspected for hemostasis. The pulse generator was attached to the leads making sure that the pins were in appropriate position, passed, set screws and set screws were tightened. A pin plug was used for the atrial port. The pulse generator was then placed in an antibiotic pouch followed then by being placed in the pocket, making sure that the leads were lying flat beneath the device and a stay stitch was used to secure the device to the pectoralis muscle. The [place] stat was placed in the pocket as the patient was going back on Coumadin. The incision was then closed in a 3-layer fashion using 2-0 Vicryl interrupted followed by 3-0 Vicryl interrupted suture followed by a 4-0 Monocryl running stitch and Dermabond was applied. EQUIPMENT: 1. Pulse generator is a [employer] CRTP Mela [employer]isans[employer] [id number], serial number [id number]. 2. Antibiotic pouch is reference number [id number], lot number [id number], expiration 08/27/2018. 3. The pin plug expiration is 11/19/2021. 4. The right ventricular lead is a Medtronic 5076-58 cm, serial number [id number]. 5. Left ventricular lead, Medtronic 4398-88 cm, serial number [id number]. INTRAOPERATIVE TESTIN. Right ventricular lead: R-wave 17.2 millivolts, impedance 878 ohms, threshold 0.3 volts at 0.4 milliamps. 2. Left ventricular lead programmed LV2 to can, impedance 710 ohms, threshold 2.9 volts at 1 millisecond. FINAL MEASUREMENTS THROUGH THE DEVICE: 1. Right ventricular lead: R-waves 19.8 millivolts, impedance 741 ohms, threshold 0.5 volts at 0.4 milliseconds. 2. Final measurements through the device programmed LV2 to can, impedance 589 ohms, threshold 2.5 volts at 1 milliamp. FINAL PARAMETERS: VVIR 60/130. Right ventricular amplitude 3.5 volts, pulse width 0.4 milliseconds, sensitivity 0.3 millivolts. Left ventricular amplitude 4 volts, pulse width 1 millisecond. I opted not to do the AV anna ablation today because of the duration of the case already, the probable pneumothorax as well as looking at how the LV lead backed into the right atrium. I wanted to have this mature so it did not pull back before I created the AV anna junction. The patient was tachypneic as she was coming out of anesthesia. We did a postop chest x-ray which showed the pneumothorax and we did an ABG and her gas. She was acidotic, so she did end up intubated briefly and got a chest tube. PLAN: Admitted to the ICU. Not allowed to lift left elbow or left shoulder for 1 month and cannot lift more than 10 pounds with the left arm for 2 weeks. A wound check a week after she gets out of the hospital and then we will arrange for her to have an AV anna junction probably in about 1 month or so. So for now, continue her home medications. I attest to the content of the Intraoperative Record and any orders documented therein. Any exceptions are noted below. LATA
--- NOTE | 2018-07-15 08:08 | Discharge Summary ---
Date of Service July 15, 2018 Admission HPI Per Admitting Provider Reason for Consultation: Medical management Requesting Physician: Dr. Mercado/Rishi Rodríguez PA-C Attending Physician: Indiana Araiza DO History of Present Illness This is a 67-year-old female who has a significant past medical history of chronic respiratory failure secondary to severe COPD on 4L of O2, permanent atrial fibrillation anticoagulated with warfarin, multifocal atrial tachycardia, chronic diastolic CHF, CKD stage III, PFO, GERD, depression, bilateral hip avascular necrosis, history of spontaneous right pneumothorax who presents to [facility] secondary to elective biventricular pacemaker insertion and AV anna ablation by Dr. Araiza. Procedure was performed secondary to chronic symptomatic atrial fibrillation with RVR uncontrolled with AV anna blocking agents. Prior to procedure patient under went pulmonary evaluation on 07/05/18 in which it was deemed she was intermediate risk for procedure secondary to severe COPD and chronic respiratory failure. Patient unfortunately suffered from left pneumothorax and was subsequently transferred to ICU. Patient required intubation and ultimate chest tube placement secondary to 50% left-sided pneumothorax. We have been consulted for medical management. ROS unable to elicit given patient sedated and intubated. History provided from other providers and EMR Epic. Admission Exam Per Admitting Provider Vital Signs (Past 24 Hours): Last Vital Signs Temp 36.4 C L 07/07/18 13:23 Pulse 96 H 07/07/18 13:25 Resp 18 07/07/18 13:25 BP 177/112 H 07/07/18 13:23 Pulse Ox 98 07/07/18 13:25 Physical Exam: Gen: Morbidly obese, ill-appearing, female, lying in bed, intubated Head: Normocephalic, Atraumatic Eyes: Sclera normal, no conjunctival injection, ENT: Exam obscured secondary to ET tube Neck: supple, no adenopathy, No JVD, no bruit, Resp: Clear to auscultation b/l, no wheeze, rales, rhonchi. Normal insp/exp effort, no accessory muscle use CV: irregular rate, irregular rhythm, no murmur, rub, gallop, or ectopy LACW pacer insertion site CDI, L sided chest tube placed Abd: +obese, +BS x 4, soft, nontender, nondistended Musculoskeletal: moves extremities active rom x 4, strength intact, good porcelain technician strength Extremities: No edema bilaterally Skin: warm, moist, no rash, negative turgor, cap refill < 2sec Neuro: unable to assess given intubated : deferred Principal Diagnosis Status post biventricular cardiac pacemaker placement, pneumothorax on the left- resolved, atrial fibrillation with chronic diastolic heart failure, COPD Discharge Exam Constitutional well nourished; no acute distress Eyes PERRL, conjunctivae normal, anicteric sclerae ENMT external ear and nose normal, oropharynx normal Neck trachea midline, no thyromegaly Respiratory normal respiratory effort Auscultation: + diminished lung sounds and + crackles (Minimal to no crackles at the bases) Cardiovascular Heart Sounds: normal S1 and normal S2 Extremities: + edema (Trace edema bilaterally) Gastrointestinal (Abdomen) Inspection/Auscultation: abdomen normal to inspection and normal bowel sounds Discharge Data Allergies Allergy/AdvReac Type Severity Reaction Status Date / Time Penicillins Allergy Severe SWELLING Verified 07/06/18 15:13 OF TONGUE AND THROAT Consultations 07/07/18 13:13 Consult Ad Terminal Makeup Operator Routine 07/07/18 14:08 Consult Hospitalist Routine 07/07/18 15:54 Consult Case Management - Discharge Planning Routine 07/07/18 17:06 Consult Ad Terminal Makeup Operator Routine 07/09/18 08:08 Consult Thoracic Surgery Routine Procedures Performed Operation Date: 07/07/18 08:00 Actual Procedures p Pacer with Ventricular Lead - Indiana Araiza DO s Lead LV (No Priopr Implant) - Indiana Araiza DO s Venogram, Unilateral - Indiana Araiza DO Ordered Studies 07/07/18 06:45 EP Lab Images for PACS ONCE 07/07/18 12:56 US point of care ultrasound Routine Hospital Course (1) Acute on chronic respiratory failure with hypoxia and hypercapnia: Has history of severe COPD on 4 L of oxygen at home Developed acute respiratory failure with pneumothorax during placement of pacemaker -- (+) air leak, seems to be expanding further management per Thoracic Surgery SVC -- coumadin on hold for possible procedure on Lovenox SC BID --Appreciate thoracic surgery input --Chest tube has been draining less and less and to like to come out today --Chest tube has been discontinued yesterday -Chest x-ray this morning did not show any pneumothorax -She has been clinically a lot better -She will be discharged this afternoon (2) Pneumothorax on left: As above (3) S/P biventricular cardiac pacemaker procedure: s/p biventricular cardiac pacemaker placed with AVN by Dr. Araiza Secondary to atrial fibrillation with RVR despite AV anna blocking agents Procedure complicated by large left-sided pneumothorax 50%, ABG pH 7.11, CO2 97, HCO3 31 Appreciate urology input and recommendation No acute cardiac problem Heart rate remains stable on pacemaker (4) Hyperglycemia: ICU hyperglycemia protocol A1C 5.9 in 03/2018 A1C : 6.2 (5) Atrial fibrillation: s/p Biv Pacemaker placement by Dr. Araiza usual Diltiazem, Digoxin resumed -- Metoprolol added for better HR control -- HR is controlled --Will restart Coumadin (6) CHF (congestive heart failure): euvolemic last echo Date: 05/18/18: LVEF 50-54%. Mild inferior wall HK. Basal septum is thickened and angulated consistent with sigmoid septum. Masked dyssynergy of the interventricular septum and apical septum. Moderately increased LV wall thickness. No significant valvular disease. No acute fluid overload (7) CKD (chronic kidney disease), stage III: baseline Cr 1.1 mild elevation in Cr to 1.39 received IV fluids, now back to baseline (8) COPD (chronic obstructive pulmonary disease): severe COPD on chronic 4L O2 resume trelegy (or house stock ICS/LABA/anticholinergic) when able not in exacerbation As above (9) Depression: on zoloft (10) DVT prophylaxis: On chronic Coumadin presently on hold in light of possible procedures with chest tube Currently on Lovenox subcu use twice a day To likely be discharged on Coumadin and Lovenox Will start anticoagulation following taking out the chest tube Coumadin will be restarted on discharge Total Time Total Time Spent Total Time Spent (In Minutes): 35 minutes Total Time Includes: Examination of the Patient, Discharge Planning, Medication Reconciliation and Communication With Other Providers Discharge Plan Discharge Items Patient Disposition: Home - Home Health Services Reason For Visit: Chronic Diastolic, NYHA Class III, AF RVR, NICM Discharge Diagnosis: Status post biventricular cardiac pacemaker placement, pneumothorax on the left-resolved, atrial fibrillation with chronic diastolic heart failure, COPD Condition: Fair Discharge Goals: Decrease discomfort, Improve function and Increase independence Activity: Resume your previous activity Non-emergency contact: Primary Care Provider Call non-emergency contact if: you have any medication questions and your symptoms worsen Follow-up/Referrals: Aleyda Bhatti MD [Primary Care Provider] - 07/19/18 1:00 pm (Please keep the appointment with pacemaker clinic on the of this month at [facility]. Coagulation clinic has been notified) Diet: Heart Healthy Fluids: 1500ml (6 cups) Addtl Provider Instructions: Call 911 and go to the Emergency Room if: * You have tightness or pain in your chest that does not go away with rest or Nitroglycerin * You are very short of breath even with rest Call your doctor if any of the following symptoms or problems start or get worse: * Shortness of breath or difficulty breathing * Wake up at night short of breath * Chest pain * Cough * Swelling of your hands, fee, or legs * More fatigued or tired with your normal activity * Palpitations - sudden fast heart beats WEIGHT * Weigh yourself every morning after using the bathroom. * Use the same scale. * Wear the same amount of clothing. * Write your weight down on your chart. * Call your doctor if you gain more than 2-3 pounds in 1-2 days. MEDICATIONS * Use this discharge instruction sheet for instructions. * Take your medications at the time your doctor ordered. * Do not skip a dose of your medicines. * If you miss a dose of medicine, take as soon as possible, but DO NOT DOUBLE A DOSE. * Read your medicine information when you get home. * Know all of the side effects of your medicine. * Call your doctor's office if you have any side effects. * Be sure all of your doctors know what medicine and herbs you take (including cold, flu, and herbal medicine). * Pain Medicine: If you do not get relief from your pain, please call your doctor for help. Take the following with you to your follow-up doctor appointments: * Weight Chart * Medication List * List of questions Do not drink excessive alcohol, beer or wine. Continue home oxygen Prescriptions: New metoprolol succinate 25 mg Tablet Extended Release 24 Hr 37.5 mg PO QAM 30 Days Qty: 45 RF: 0 Continued multivitamin Tablet 1 tab PO DAILY RF: 0 desonide 0.05 % Cream 1 applic TOPICAL BID PRN (Reason: Rash) RF: 0 hydrocortisone valerate 0.2 % Cream 1 applic TOPICAL BID RF: 0 sertraline 100 mg Tablet 1.5 tab PO QAM RF: 0 clobetasol [Temovate] 0.05 % Cream 1 applic TOPICAL BID PRN (Reason: Rash) RF: 0 tramadol 50 mg Tablet 50 mg PO Q6H PRN (Reason: Pain) RF: 0 meloxicam 7.5 mg Tablet 7.5 mg PO DAILY PRN (Reason: Pain) RF: 0 oxycodone-acetaminophen 5-325 mg Tablet 1 tab PO Q4H PRN (Reason: pain) RF: 0 lorazepam [Ativan] 0.5 mg Tablet 0.5 mg PO BID PRN (Reason: Anxiety) RF: 0 lorazepam [Ativan] 0.5 mg Tablet 1 mg PO HS PRN (Reason: Insomnia) RF: 0 pantoprazole [Protonix] 40 mg Tablet,Delayed Release (Dr/Ec) 40 mg PO QAM RF: 0 triamcinolone acetonide 0.1 % Ointment 1 applic topical DAILY PRN (Reason: Rash) RF: 0 triamterene-hydrochlorothiazid [Maxzide] 75-50 mg Tablet 0.5 tab PO QAM RF: 0 fluocinonide 0.05 % Solution 1 applic topical DAILY PRN (Reason: Itching) RF: 0 albuterol sulfate [Ventolin HFA] 90 mcg/actuation Hfa Aerosol Inhaler 2 puff INHALATION Q4H PRN (Reason: Shortness Of Breath Or Wheezing) RF: 0 Spiriva with HandiHaler 18 mcg Capsule, W/Inhalation Device 1 cap INHALATION DAILY RF: 0 Calcium 600 + D(3) 600 mg calcium- 200 unit Capsule 1 tab PO BID RF: 0 magnesium oxide 400 mg Capsule 400 mg PO BID RF: 0 potassium chloride 10 mEq Capsule, Extended Release 30 meq PO QAM RF: 0 potassium chloride 10 mEq Tablet Extended Release 20 meq PO HS RF: 0 digoxin 125 mcg Tablet 0.125 mg PO QAM RF: 0 diltiazem HCl 420 mg Tablet Extended Release 24 Hr 420 mg PO QAM RF: 0 ipratropium-albuterol 0.5 mg-3 mg(2.5 mg base)/3 mL Solution For Nebulization 3 ml INHALATION Q8H PRN (Reason: SHORT OF BREATH) RF: 0 warfarin [Coumadin] 5 mg Tablet 5 mg PO UD RF: 0 meclizine 25 mg tablet 25 mg PO TID PRN (Reason: dizziness) RF: 0 fluticasone propion-salmeterol [Advair Diskus] 250-50 mcg/dose Blister With Device 1 inh INHALATION BID RF: 0 Stand-Alone Forms: [facility] Discharge Orders: Discharge Order (Routine); Ordered 07/14/18 Ordered By: Cipriano Carlton Admission Data Admit Date/Time: 07/07/18 17:06 Attending Provider: Indiana Araiza Admit Provider: Indiana Araiza Primary Care Provider: Aleyda Bhatti Other Providers: Mansoor Mercado ; Eliazar Hopkins ; Cipriano Carlton ; Dominga Castellanos ; Myron Espinal ; Home,Nursing Agency Service: Telemetry Other Interventions: Discharge Summary Assessment (RN) Last Done: 07/14/18 15:35 DC Date/Time DO NOT enter until pt leaves facility: 07/14/18 18:20
== END 2018-07-14 18:20 | disposition home health service (06) | DRG 981 ==
LOC: 1E 06:20 → EP 06:20 → 2E 07-11 10:02

== ENCOUNTER 2018-08-17 06:10 | Observation (INO) ==
[~2018-08-17 06:10] MED LIST changes: +CEFAZOLIN 2000MG 2,000 MG/15 ML SYR IV SCH; -CLINDAMYCIN 600 MG/54 ML BAG IV SCH
--- OUTSIDE RECORDS SUMMARY | 2018-08-17 06:20 | External Medical Summary | Continuity of Care Document ---
:1950 Author Name Nadine Foster, Provider Address Unavailable Unavailable , Care Team Providers Name Role Phone Sara Foster, Gee Unavailable [email or web address] Bob Foster Unavailable [email or web address] Unavailable Unavailable Unavailable Unavailable Problems Atrial fibrillation (427.31) (I48.91) Chronic obstructive pulmonary disease (496) (J44.9) Diastolic dysfunction (429.9) (I51.89) Multiple pulmonary nodules (793.19) (R91.8) Secondary pulmonary hypertension (416.8) Shortness of breath (786.05) (R06.02) Pulmonary nodule (793.11) (R91.1) Oral thrush (112.0) (B37.0) Depression (311) (F32.9) Allergies and Adverse Reactions Penicillins (Allergy) Medications Spiriva HandiHaler 18 MCG Inhalation Capsule; INHALE 1 DOSE DAILY. Kristin Langford Start: 04-Apr-2014 Quantity: 30 Refills: 11 Multiple Vitamin TABS; TAKE 1 TABLET DAILY. Refills: 0 Pantoprazole Sodium 40 MG Oral Tablet Delayed Release; Take 1 tablet daily Refills: 0 dilTIAZem HCl ER Coated Beads 240 MG Ora l Capsule Extended Release 24 Hour; TAKE 1 CAPSULE DAILY. Refills: 0 DuoNeb SOLN Refills: 0 Westcort 0.2 % CREA; APPLY SPARINGLY ONCE OR TWICE DAILY NEEDED. Refills: 0 Albuterol Sulfate (2.5 MG/3ML) 0.083% In halation Nebulization Solution; USE 1 UNIT DOSE IN NEBULIZER EVERY 4 TO 6 HOURS NEEDED. Refills: 0 Triamterene-HCTZ 75-50 MG Oral Tablet; TAKE 2 TABLET DAILY Kristin Langford Start: 04-Apr-2014 Quantity: 30 Refills: 11 Advair Diskus 250-50 MCG/DOSE Inhalation Aerosol Powder Breath Activated; INHALE 1 PUFF TWICE DAILY. Kristin Langford Start: 19-Nov-2016 Quantity: 1 60 Inhaler Pack Refills: 11 Eliquis 5 MG Oral Tablet; Take 1 tablet twice daily Start: 19-Nov-2016 Refills: 0 K-Tab 10 MEQ Oral Tablet Extended Release; TAKE 1 TABL ET twice daily Kristin Langford Refills: 3 Magnesium TABS; TAKE 400 MG TWICE DAILY Refills: 0 Ativan TABS; TAKE 1 TABLET twice daily Refills: 0 Sertraline HCl - 100 MG Oral Tablet; TAKE 1 AND 1/2 TA BLETS AT BEDTIME. Kristin Langford Start: 15-Mar-2012 Refills: 0 Ventolin HFA 108 (90 Base) MCG/ACT Inhal ation Aerosol Solution; INHALE 2 PUFFS EVERY 4 HOURS NEEDED Kristin Langford Start: 09-Sep-2010 Quantity: 1 18 GM Inhaler Refills: 11 Nystatin [id number] UNIT/ML Mouth/Throat Patrica pension; SWISH AND SWALLOW 5ML 4 TIMES DAILY. Kristin Rojas Start: 31-Jul-2017 Quantity: 480 Refills: 0 Calcium + D TABS; Take 1 tablet twice daily Refills: 0 Cyclobenzaprine HCl - 10 MG Oral Tablet; TAKE 1 TABLET BEDT GIANFRANCO NEEDED Refills: 0 Ambien TABS; Take as needed Refills: 0 Procedures History of Total Abdominal Hysterectomy With Removal Of Both Status: Completed Ovaries History of Tonsillectomy Status: Complet ed History of Sinus Surgery Status: Complet ed History of Foot Arthrodesis Status: Comp leted History of Chest Tube Insertion Status: Completed History of Bronchoscopy (Diagnostic) Sta tus: Completed Immunizations Immunizations not documented Family History Unknown Family Member Family history of Chronic Obstructive Status: Active Co mments: Family History Pulmonary Disease Social History - Smoking Status Former smoker Plan of Treatment Planned Encounters Appointment; Gee Ruiz M.D. Start: 05-Jan-2019 11:00 R equest Planned Observations Planned Goals not documented Results No Known Results Results not documented Encounters Appointment; Gee Ruiz M.D. 05-Jan-2018 9:00 Encounter Diagnosis: Problem not documented Appointment; Ajit Rojas M.D. 05-Nov-2017 15:30 Encounter Diagnosis: Problem not documented Appointment; Ajit Rojas M.D. 30-Jul-2017 14:45 Encounter Diagnosis: Problem not documented Appointment; Pulmonary, Funct Testing 29-Jul-2017 15:00 Encounter Diagnosis: Problem not documented Appointment; Ajit Rojas M.D. 26-Jun-2017 11:00 Encounter Diagnosis: Problem not documented Appointment; Rafa Langford M.D. 19-Nov-2016 14:30 Encounter Diagnosis: Problem not documented Appointment; Gee Ruiz M.D. 05-Jan-2019 11:00 Encounter Diagnosis: Problem not documented
--- NOTE | 2018-08-17 07:50 | History & Physical Bridge Note ---
Date of Service August 17, 2018 History & Physical Bridge Note I have examined the patient, reviewed the History & Physical and in the interval since the performance of the History & Physical I have noted the following changes of clinical significance: no changes noted
--- NOTE | 2018-08-17 07:51 | Pre Anesthesia Assessment ---
Date of Service August 17, 2018 Pre Sedation Assessment Vital Signs Temp Pulse Resp Pulse Ox 08/17/18 07:12 36.5 C 08/17/18 07:11 36.5 C 101 H 16 98 Cardiovascular + tachycardic Respiratory normal respiratory effort, lungs clear to auscultation Pre-Sedation Airway Assessment Smoking Status: Former smoker Hx Sleep Apnea: No Hx Difficult Intubation: No Short, Thick Neck: No Thyromental Distance: < 3.5 Finger Breadths Oral Cavity: + Dental Abnormalities Mallampati Class: III ASA: ASA3 NPO Status Date of Last Intake of Fluids: 08/16/18 Date of Last Intake of Solid Food: 08/16/18 Procedure Planning Contraindications for Sedation: none Current Medications Reviewed: Yes Notes The planned sedation has been discussed with the patient. Informed Consent was obtained. I have identified the patient, determined the appropriateness of sedation and have assessed the patient immediately prior to the procedure. All medicine(s) and interventions are by my order.
[2018-08-17] MEDS ORDERED: MIDAZOLAM HCL 5 MG/ML 1 ML VIAL ONE ×2 (08:01→08:51)
[2018-08-17] MEDS ORDERED: fentaNYL citrate 100 MCG/2 ML VIAL ONE ×3 (08:01→09:24)
[2018-08-17] MEDS ORDERED: ACETAMINOPHEN 325 MG TAB PO PRN (09:45)
[2018-08-17] MEDS ORDERED: TRIAMCINOLONE ACET 0.1% OINT 15 GM TUBE TOP PRN (09:47)
[2018-08-17] MEDS ORDERED: TRAMADOL HCL 50 MG TABLET PO PRN (09:47)
[2018-08-17] MEDS ORDERED: LORazepam 1 MG TAB PO PRN (09:47)
[2018-08-17] MEDS ORDERED: MECLIZINE HCL 25 MG TAB PO PRN (09:47)
[2018-08-17] MEDS ORDERED: LORazepam 0.5 MG TAB PO PRN (09:47)
[2018-08-17] MEDS ORDERED: MELOXICAM 7.5 MG TAB PO PRN (09:47)
[2018-08-17] MEDS ORDERED: ALBUTEROL HFA 8 GM INHALER INH PRN (09:47)
[2018-08-17] MEDS ORDERED: ALBUT/IPRATROP 3MG/0.5MG NEB 3 ML VIAL INH PRN (09:47)
--- NOTE | 2018-08-17 09:52 | Post Anesthesia Assessment ---
Date of Service August 17, 2018 Post Sedation Assessment Vital Signs Temp Pulse Resp Pulse Ox 08/17/18 07:12 36.5 C 08/17/18 07:11 36.5 C 101 H 16 98 Recovery Score Activity: Moves 4 extremities Respiration: Deep Breath/Cough Circulation: +/-20% PreAnes Value Consciousness: Fully Awake Oxygen Saturation: > 92% On Room Air Discharge Sedation Level of Care: Fast Track Phase II Post Sedation Plan On clinical assessment, the patient appears to have tolerated the sedation without complications. Patient is recovering as anticipated. Patient will continue to be monitored by nursing and may be discharged when se dation discharge criteria are met per below protocol. Upon Completions of procedure and additional 15 minutes continue every 5 minute vital signs and the P.A.R. score; then discharge to a Phase I or Fast Track to Phase II per the following guidelines: * Discharge Patient to appropriate Phase II area if PAR is 8 or greater or return to pre- procedure baseline. The post - procedure orders will be as directed. * If PAR score is less than 8 or not return to pre-procedure baseline then patient will follow Phase I monitoring till PAR is reached for Phase II. The Phase I may be done in procedure room or may call to secure a Phase I area. * If naloxone or flumazenil are used for reversal, hold in Phase I for continued monitoring from when last reversal dose was given for a minimum of 60 minutes or longer pending the nurse and/or physician discretion of patient condition before discharge to Phase II. Please call the Sedation Physician to re-evaluate and complete post-note for discharge to Phase II area. Do NOT discharge from procedure sedation or Phase 1 until post- sedation evaluation note is complete by procedure /sedation MD Sedation Discharge Instructions to be given to the patient at discharge to home.
--- NOTE | 2018-08-17 09:53 | Operative Report ---
Post Operative Report Pre & Post Diagnosis Permanent AF with RVR despite AVN blockers Post OP: same plus CHB Operation Date: 08/17/18 08:00 <No data on this case meets the specified criteria> Procedure Operation Date: 08/17/18 08:00 Actual Procedures p AV Node Ablation - Indinaa Araiza DO Biventricular pacemaker reprogramming and interrogation Surgeon Indiana Araiza DO Service Line Coordinator none Estimated Blood Loss 5 Findings Consistent with Post-Op Diagnosis Specimens none Description of Procedure see official report I attest to the content of the Intraoperative Record and any orders documented therein. Any exceptions are noted below.
[2018-08-17 11:43] LABS: Hematocrit (blood only) 40.4 % (37-47); Hemoglobin 13.2 g/dL (12.0-16.0); Mean Corpuscular Volume 81.8 fL (80-100); Mean Platelet Volume 10.3 fL (7.4-10.4); Platelet Count 167 K/uL (130-400); RDW Standard Deviation 44.7 fL (36.4-46.3); Red Blood Count 4.94 M/uL (4.2-5.4); White Blood Count 6.89 K/uL (4.8-10.8)
[2018-08-17 11:51] LABS: Mean Corpuscular Hgb Conc 32.7 g/dL (32-36)
[2018-08-17 11:52] LABS: INR 2.3 (0.9-1.1); Prothrombin Time 22.6 Seconds (9.0-12.0)
[2018-08-17] MEDS ORDERED: WARFARIN SOD 5 MG TAB PO SCH (16:00)
[2018-08-17] MEDS: OXYCODONE/ACETAMINOPHEN 5mg/325mg TAB PO PRN ×2 (17:40→23:06)
[2018-08-17] MEDS: CALCIUM 600MG + VIT D 400 IU TAB PO SCH (19:35)
[2018-08-17] MEDS: MAGNESIUM OXIDE 400 MG TAB PO SCH (19:35)
[2018-08-17] MEDS ORDERED: POTASSIUM CHLORIDE 10 MEQ TABCR PO SCH (21:00)
[2018-08-18 06:39] LABS: INR 2.5 (0.9-1.1); Prothrombin Time 23.8 Seconds (9.0-12.0)
[2018-08-18] MEDS: MAGNESIUM OXIDE 400 MG TAB PO SCH (07:59)
[2018-08-18] MEDS: CALCIUM 600MG + VIT D 400 IU TAB PO SCH (07:59)
[2018-08-18] MEDS ORDERED: POTASSIUM CHLORIDE 10 MEQ TABCR PO SCH (09:00)
[2018-08-18] MEDS ORDERED: FLUTICASONE PROPIONATE NA SPR 16 GM BTL SCH (09:00)
[2018-08-18] MEDS ORDERED: MULTIVITAMIN TAB PO SCH (09:00)
[2018-08-18] MEDS ORDERED: SERTRALINE HCL 50 MG TABLET PO SCH (09:00)
[2018-08-18] MEDS ORDERED: TRIAMTERENE/HCTZ 37.5/25MG TAB PO SCH (09:00)
[2018-08-18] MEDS ORDERED: PANTOprazole 40 MG TAB PO SCH (09:00)
[2018-08-20] MEDS ORDERED: WARFARIN SOD 2.5 MG TAB PO SCH (16:00)
--- NOTE | 2018-08-27 07:35 | Operative Report ---
DATE OF OPERATION: 08/17/2018 PREOPERATIVE DIAGNOSES: Persistent atrial fibrillation with rapid ventricular response despite atrioventricular anna blockers. POSTOPERATIVE DIAGNOSES: Persistent atrial fibrillation with rapid ventricular response despite atrioventricular anna blockers, complete heart block. PROCEDURE: Atrioventricular anna ablation along with biventricular pacemaker reprogramming. SURGEON: Indiana Araiza DO VEHICLE SALES PROFESSIONAL: None. ANESTHESIA: Monitored conscious sedation administered under my supervision by Eloisa Chavis. Start time8:13, end time 9:45. A total of 10 mg of Versed and 250 mcg of fentanyl. INTRAVENOUS FLUIDS: 100 mL. BLOOD LOSS: Less than 5 mL. URINE OUTPUT: Not applicable. SPECIMENS: None. FINDINGS: See below. DRAINS: None. INDICATIONS: This patient is a 68-year-old female with past medical history of persistent atrial fibrillation with rapid ventricular response despite high dose atrioventricular anna blockers. CHADS2-VASc score is 3, mildly reduced cardiomyopathy, ejection fraction about 50% in 04/2018, right-sided heart failure along with chronic diastolic heart failure, [place] Heart Association class 3, pulmonary hypertension, severe chronic obstructive pulmonary disease with emphysema, on oxygen, small PFO by MARY in 2013, Raynaud syndrome, prior tobacco use, chronic kidney disease stage III, depression, history of spontaneous pneumothorax in 2004, hip problems, due to have a hip surgery at some juncture. She underwent a biventricular pacemaker back on 07/07/2018 it was a long procedure complicated with a left-sided pneumothorax, so the atrioventricular anna ablation was postponed until the leads matured. CONSENT: Consent was obtained prior to the patient going into electrophysiology lab. The patient was informed of risks, benefits and alternatives to the procedure. Risks include but not limited to sudden cardiac , cardiac arrhythmia, cerebrovascular accident, myocardial infarction, injury to the blood vessels, chamber of the heart or dislodgement of the pacemaker leads, bleeding and infection. DESCRIPTION OF THE PROCEDURE: The BiV pacemaker was interrogated and reprogrammed before the ablation see below for details. 10 mL of 1% lidocaine were given in the right femoral groin for local anesthesia. Then access was obtained in the following manner. The right femoral vein had an 8-Welsh short sheath placed without any problems. Then, the ablation catheter for the 8 mm DF curve ablation catheter was advanced into heart and positioned in the His Bundle region under fluroscopic guidance and elctrogram intracardiac mapping was performed to find the His. Then I have a series of radiofrequency simon at 70W got good temperatures but could not cause heart block. So I swapped out the ablation catheter for an 8mm F/J curve which allowed me to get further into the His region and obtained heart block. After 20-minute waiting period, we checked and she still remained in heart block. The catheter was removed from the body under fluoroscopic guidance and the sheaths were pulled using manual compression. The device was interrogated adn reprogrammed after the ablation see below for details. BiV pacemaker interrogation and reprogramming before ablation: RV: 646ohms, >20mV, 1V@0.4ms LV: 437ohms; 1.25V@1ms reprogrammed to to VVI 40 and at that time the RV lead was greater than the LV lead by 30 seconds. BiV pacemaker interrogation and reprogramming post ablation: RV: there were no R waves and the threshold was 0.75 volts at 0.4 milliseconds; 646 ohms LV lead impedance was 456 and the threshold was 1.5 volts at 1 millisecond. The device was reprogrammed to VVI 90 with the RV =LV in timing and the RV amplitude was increased from 3.5V to 5V. IMPRESSION: Successful atrioventricular anna ablation due to persistent atrial fibrillation with rapid ventricular response despite atrioventricular anna blockers. PLAN: Monitor the patient overnight, 12-lead ECG. She can stop her atrioventricular anna blockers, but she is to continue her anticoagulation and follow up in the office in 1 month's time. I attest to the content of the Intraoperative Record and any orders documented therein. Any exceptions are noted below. LATA
--- NOTE | 2018-08-31 11:07 | Discharge Summary ---
Date of Service August 31, 2018 Admission HPI pt admitted for elective AVN ablation due to permanent AF with RVR Admission Exam Per Admitting Provider aaox3, NAD NC/AT, EOMI Supple No JVD Irregular Irregular S1/S2, + murmur CTA b/l no w/r/r soft nt/nd no LE edema b/l skin intact no focal deficits Principal Diagnosis Principal Diagnosis Permanent AF with RVR s/p AVN ablation Discharge Exam aaox3, NAD NC/AT, EOMI Supple No JVD Nrl S1/S2, + murmur CTA b/l no w/r/r soft nt/nd no LE edema b/l skin intact no focal deficits right groin soft no hematoma ENMT Mallampati Class: III Respiratory normal respiratory effort, lungs clear to auscultation Cardiovascular Rate/Rhythm: + tachycardic Discharge Data Allergies Allergy/AdvReac Type Severity Reaction Status Date / Time Penicillins Allergy Severe SWELLING Verified 07/06/18 15:13 OF TONGUE AND THROAT Procedures Performed BiV pacemaker reprograming Operation Date: 08/17/18 08:00 Actual Procedures s Cineradiography w/Routine Exam - Indiana Araiza DO p AV Node Ablation(Not Applicable) - Indiana Araiza DO Ordered Studies 08/17/18 07:00 EP Lab Images for PACS ONCE Total Time Total Time Spent Total Time Spent (In Minutes): 30 Total Time Includes: Examination of the Patient, Discharge Planning, Medication Reconciliation and Other Discharge Plan Discharge Items Patient Disposition: Home - Self-Care Reason For Visit: Atrial Fibrillation Discharge Diagnosis: Permanent AF with RVR s/p AVN ablation Condition: Good Discharge Goals: Improve function Activity: As commented below Lifting: No more than 10 pounds Lifting Comment: do not do any heavy lifting for a week Bathing: No limitations Sexual Activity: After two weeks Driving/Machine Use: Resume 1 day after discharge 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 Araiza as scheduled in August Prescriptions: Continued ipratropium-albuterol 0.5 mg-3 mg(2.5 mg base)/3 mL Solution For Nebulization 3 ml INHALATION QID PRN (Reason: Shortness Of Breath) RF: 0 oxycodone-acetaminophen 5-325 mg Tablet 1 tab PO Q4H PRN (Reason: Pain) RF: 0 warfarin 5 mg Tablet 5 mg PO UD RF: 0 fluticasone propionate [Flonase Allergy Relief] 50 mcg/actuation [place],Suspension 2 spray INTRANASAL DAILY RF: 0 Trelegy Ellipta 100-62.5-25 mcg Blister With Device 1 inh INHALATION DAILY RF: 0 multivitamin Tablet 1 tab PO DAILY RF: 0 desonide 0.05 % Cream 1 applic TOPICAL BID PRN (Reason: Rash) RF: 0 hydrocortisone valerate 0.2 % Cream 1 applic TOPICAL BID RF: 0 sertraline 100 mg Tablet 1.5 tab PO QAM RF: 0 clobetasol [Temovate] 0.05 % Cream 1 applic TOPICAL BID PRN (Reason: Rash) RF: 0 tramadol 50 mg Tablet 50 mg PO Q6H PRN (Reason: Pain) RF: 0 meloxicam 7.5 mg Tablet 7.5 mg PO DAILY PRN (Reason: Pain) RF: 0 lorazepam [Ativan] 0.5 mg Tablet 0.5 mg PO BID PRN (Reason: Anxiety) RF: 0 lorazepam [Ativan] 0.5 mg Tablet 1 mg PO HS PRN (Reason: Insomnia) RF: 0 pantoprazole [Protonix] 40 mg Tablet,Delayed Release (Dr/Ec) 40 mg PO QAM RF: 0 triamcinolone acetonide 0.1 % Ointment 1 applic topical DAILY PRN (Reason: Rash) RF: 0 triamterene-hydrochlorothiazid [Maxzide] 75-50 mg Tablet 0.5 tab PO QAM RF: 0 fluocinonide 0.05 % Solution 1 applic topical DAILY PRN (Reason: Itching) RF: 0 albuterol sulfate [Ventolin HFA] 90 mcg/actuation Hfa Aerosol Inhaler 2 puff INHALATION Q4H PRN (Reason: Shortness Of Breath Or Wheezing) RF: 0 Calcium 600 + D(3) 600 mg calcium- 200 unit Capsule 1 tab PO BID RF: 0 magnesium oxide 400 mg Capsule 400 mg PO BID RF: 0 potassium chloride 10 mEq Capsule, Extended Release 30 meq PO QAM RF: 0 potassium chloride 10 mEq Tablet Extended Release 20 meq PO HS RF: 0 warfarin [Coumadin] 5 mg Tablet 2.5 mg PO UD RF: 0 meclizine 25 mg tablet 25 mg PO TID PRN (Reason: dizziness) RF: 0 Discontinued metoprolol succinate 50 mg Tablet Extended Release 24 Hr 75 mg PO DAILY RF: 0 digoxin 125 mcg Tablet 0.125 mg PO QAM RF: 0 diltiazem HCl 420 mg Tablet Extended Release 24 Hr 420 mg PO QAM RF: 0 Stand-Alone Forms: [facility]/Other Patient Handouts: AFL/Afib, Ablation Cardiac Dc, Catheter Ablation After Discharge Orders: Discharge Order (Routine); Ordered 08/18/18 Ordered By: Indiana Araiza Admission Data Admit Date/Time: 08/17/18 08:52 Attending Provider: Indiana Araiza Admit Provider: Indiana Araiza Primary Care Provider: Aleyda Bhatti Other Providers: Home,Nursing Agency Service: Telemetry Other Interventions: Discharge Summary Assessment (RN) Last Done: 08/18/18 09:52 DC Date/Time DO NOT enter until pt leaves facility: 08/18/18 10:39
== END 2018-08-18 10:39 | disposition home or self-care (01) ==
LOC: 2E 06:10 → EP 06:10

== ENCOUNTER 2020-01-01 18:43 | Inpatient (IN) ==
[2020-01-01] MEDS ORDERED: fentaNYL citrate 100 MCG/2 ML VIAL IV STA (19:01)
--- NOTE | 2020-01-01 19:07 | Emergency Department Note ---
Impression & Plan Acute hip pain, Hematoma of right hip ED Provider Note Provider: Noam Farfan MD DATE OF SERVICE:01/01/2020 CHIEF COMPLAINT: Right hip pain HISTORY OF PRESENT ILLNESS: Patient is a 69-year-old female with a history of chronic atrial fibrillation and pacemaker on Coumadin, COPD on chronic 3 L of oxygen, GERD, CHF, prior bilateral hip replacement presenting today via ambulance from home after standing up in the bathroom and had severe pain in the right hip area. Patient states he had this replaced the end of September at [facility] and just finished physical therapy. Patient denies any falls. Denies any other injury or pain. Patient states she has not had this happen before. Patient st ates that she normally ambulates with a walker but is unable to given the pain in her right hip. Patient states her right leg feels a little bit off but denies numbness and the pain does radiate down the leg denies any tenderness of the right knee, calf, foot, or ankle. No pain medicine prior to arrival. No history of dislocation reported. REVIEW OF SYSTEMS: A total of 10 review of systems was obtained and negative except as stated above in the HPI. PAST MEDICAL HISTORY: As noted above MEDICATIONS: Reviewed home medication list was significant includes warfarin SOCIAL HISTORY: Lives alone in apartment, ambulates with walker PHYSICAL EXAM: GENERAL: alert and oriented in no acute distress on stretcher on nasal cannula oxygen Head: normocephalic and atraumatic EYES: No injection, discharge or icterus. NECK: Trachea midline. Supple. ENT: Mucous membranes pink and moist. LUNGS: Airway patent. No retractions. Breath sounds clear HEART: Regular rate and rhythm. No chest wall tenderness ABDOMEN: Soft and non-tender, without guarding or rebound. SKIN: Acyanotic, warm, dry, without rashes EXTREMITIES: Without swelling, tenderness or deformity except for pain with ROM passive or active of the right hip. 1+ DP pulse of the left foot. No tenderness of the distal thigh, knee, leg, ankle, or foot on the right side. Denies any tenderness or pain of the left lower extremity. NEUROLOGICAL: No aphasia. No slurred speech. Intact sensation in the bilateral lower extremities. EK bpm ventricular paced rhythm with appears to be underlying atrial flutter. There is a paced ventricular conduction delay. Compared to previous from September [id number] rate appears slower today and clearly today has underlying flutter waves not clear on previous cardiogram. CONTINUOUS CARDIAC MONITORING: was ordered and showed a heart rate of 70 bpm in ventricular paced rhythm Patient's imaging reviewed. Differential includes Fracture, subluxation, dislocation, contusion, ligamentous injury, neurovascular, compartment syndrome, rhabdomyolysis, as well as other pathologies. IMPRESSION/MEDICAL DECISION MAKING: Patient presents after bending over with significant pain in the left hip area. Is anticoagulant Coumadin. History of replacement. X-rays obtained per radiology without evidence of fracture dislocation. Given her pain in this region of her right hip a CT was obtained as well as the abdomen pelvis to exclude other occult fracture or possible injury here. Basic labs obtained showed no significant leukocytosis concerning for infection. There is no significant evidence of renal dysfunction. INR is therapeutic. Given some fentanyl and morphine for pain. No significant trauma otherwise or other complaint and do not believe he need additional imaging of other body parts or limbs. Movement seems to have caused a large 14 x 13 cm hematoma around the right hip based on imaging. No other acute abnormality noted limited by artifact based on the preliminary read. INR is therapeutic at 2.6. No significant hemodynamic instability or severe anemia. Patient is ventricular paced but appears to have underlying atrial flutter at this point. Given additional pain medicine for the hip. Recommend monitoring here in the hospital given her pain and the hematoma. She is in agreement with the plan. Hospitalist was contacted. DIAGNOSIS: Right hip hematoma, right hip pain DISPOSITION: Hospitalist will evaluate Patient was agreeable with this plan. Preliminary Findings Only See Final Report For Complete Findings CT ABDOMEN & PELVIS With Contrast: Mild colonic diverticulosis without diverticulitis. Appendix not identified on these axial images. Artifact within the pelvis secondary to the hip arthroplasties. Hematoma around the right hip measuring 14 x 13 cm. Liver, gallbladder, pancreas, spleen, adrenal glands, kidneys, and reproductive organs are unremarkable. Radiologist: Odell Beauchamp MD Study ready at 20:57 and initial results transmitted at 21:40 Preliminary Findings Only See Final Report For Complete Findings CT RIGHT HIP: Hematoma around the right hip measuring up to 14 cm. Right total hip arthroplasty. No acute fracture with the caveat that metal artifact limits evaluation. Heterotopic ossification adjacent to the greater trochanter and lesser trochanter. Radiologist: Odell Beauchamp MD Study ready at 20:56 and initial results transmitted at 21:45 Past Med/Surg History Medical History (Updated 01/02/20 @ 00:54 by Noam Farfan M.D.) Anxiety Atrial fibrillation CHF (congestive heart failure) DIASTOLIC Chronic respiratory failure CKD (chronic kidney disease) STAGE III COPD (chronic obstructive pulmonary disease) "SEVERE" ON 3-4L CONTINUOUS Depression GERD (gastroesophageal reflux disease) Obesity Osteoarthritis Paroxysmal atrial fibrillation PFO (patent foramen ovale) Psoriasis Pulmonary nodules Raynauds syndrome Urinary incontinence Surgical History H/O foot surgery LEFT FOOT SURGERY History of cataract surgery RT/LEFT History of colonoscopy History of hysterectomy History of tonsillectomy History of tooth extraction Social History Smoking Status: Never smoker Cigarettes Per Day: 20; Second Hand Exposure: No; Hx Alcohol Use: Yes Alcohol type: wine Hx Substance Use: No Preferred Language: Portuguese Communication Ability: Effective Visual Impairment: No Limitations Clock Maker Required: No Beliefs That Will Affect Care: None Current Living Situation: Alone Current Living Situation Comment: LIVES ALONE [facility] Feels Safe at Home: Yes Assistive Devices: Glasses and Walker Allergies Allergies Allergy/AdvReac Type Severity Reaction Status Date / Time Penicillins Allergy Severe SWELLING Verified 01/01/20 20:00 OF TONGUE AND THROAT Home Meds Home Medications Medication Instructions Recorded Confirmed Calcium 600 + D(3) 1 tab PO BID 03/29/18 01/01/20 albuterol sulfate [Ventolin HFA] 2 puff INHALATION Q4H PRN 03/29/18 01/01/20 clobetasol [Temovate] 1 applic TOPICAL BID PRN 03/29/18 01/01/20 desonide 1 applic TOPICAL BID PRN 03/29/18 01/01/20 fluocinonide 1 applic TOPICAL DAILY PRN 03/29/18 01/01/20 hydrocortisone valerate 1 applic TOPICAL BID 03/29/18 01/01/20 lorazepam [Ativan] 0.5 mg PO BID PRN 03/29/18 01/01/20 lorazepam [Ativan] 1 mg PO HS PRN 03/29/18 01/01/20 magnesium oxide 400 mg PO BID 03/29/18 01/01/20 meloxicam 7.5 mg PO DAILY PRN 03/29/18 01/01/20 multivitamin 1 tab PO DAILY 03/29/18 01/01/20 pantoprazole [Protonix] 40 mg PO QAM 03/29/18 01/01/20 potassium chloride 20 meq PO HS 03/29/18 01/01/20 potassium chloride 30 meq PO QAM 03/29/18 01/01/20 sertraline 1.5 tab PO QAM 03/29/18 01/01/20 tramadol 50 mg PO Q6H PRN 03/29/18 01/01/20 triamcinolone acetonide 1 applic TOPICAL DAILY PRN 03/29/18 01/01/20 triamterene-hydrochlorothiazid 0.5 tab PO QAM 03/29/18 01/01/20 [Maxzide] meclizine 25 mg PO TID PRN 07/06/18 01/01/20 warfarin [Coumadin] 2.5 mg PO WK 07/06/18 01/01/20 Trelegy Ellipta 1 inh INHALATION DAILY 08/17/18 01/01/20 fluticasone propionate [Flonase 2 spray INTRANASAL DAILY 08/17/18 01/01/20 Allergy Relief] ipratropium-albuterol 3 ml INHALATION QID PRN 08/17/18 01/01/20 warfarin 5 mg PO 6XWK 08/17/18 01/01/20 ferrous sulfate 27 mg PO BID 01/01/20 01/01/20 furosemide 20 mg PO BID 01/01/20 01/01/20 spironolactone [Aldactone] 25 mg PO BID 01/01/20 01/01/20 Results & Data (ED) Vital Signs Vital Signs - 24 hr 01/01/20 18:50 01/01/20 20:42 01/02/20 00:16 Temperature 37.1 C Temperature Source Oral Pulse Rate 96 H Pulse Rate [Finger] 73 70 Respiratory Rate 18 20 18 Blood Pressure 155/109 H Blood Pressure [Right Arm] 120/69 123/67 Blood Pressure Mean 124 Blood Pressure Mean [Right Arm] 86 85 Pulse Oximetry 94 100 100 Oxygen Delivery Method Room Air Nasal Cannula Nasal Cannula Oxygen Flow Rate 3 3 Sepsis Recent Fever Within 48 Hours No Sepsis New/Unexplained Change in Mental Status No Sepsis Action Taken by Nursing No Action Required Laboratory Data Result diagrams: 01/01/20 19:14 01/01/20 19:14 Lab Results 01/01/20 01/01/20 01/01/20 Range/Units 19:14 19:14 19:14 WBC 6.50 (4.8-10.8) K/uL RBC 4.54 (4.2-5.4) M/uL Hgb 10.7 L (12.0-16.0) g/dL Hct 36.5 L (37-47) % MCV 80.4 (80-100) fL MCH 23.6 L (25-34) pg MCHC 29.3 L (32-36) g/dL RDW Std Deviation 49.5 H (36.4-46.3) fL RDW Coeff of Daniela 16.6 H (11.5-14.5) % Plt Count 213 (130-400) K/uL MPV 10.1 (7.4-10.4) fL Immature Gran % (Auto) 0.0 % Neut % (Auto) 74.3 % Lymph % (Auto) 11.4 % [place] % (Auto) 11.1 % Eos % (Auto) 2.9 % Baso % (Auto) 0.3 % Neut # (Auto) 4.83 (1.4-6.5) K/uL Lymph # (Auto) 0.74 L (1.2-3.4) K/uL [place] # (Auto) 0.72 H (0.11-0.59) K/uL Eos # (Auto) 0.19 (0-0.5) K/uL Baso # (Auto) 0.02 (0-0.2) K/uL Immature Gran # (Auto) 0.00 (0.00-0.02) K/uL PT 26.4 H (9.0-12.0) Seconds INR 2.6 H (0.9-1.1) APTT 36.3 H (21.0-31.0) Seconds PTT Ratio 1.3 Sodium 139 (136-145) mmol/L Potassium 3.6 (3.5-5.1) mmol/L Chloride 103 (98-107) mmol/L Carbon Dioxide 31 (21-32) mmol/L Anion Gap 5.0 (3-11) BUN 15 (7-18) mg/dl Creatinine 0.90 (0.6-1.2) mg/dl Est Cr Clr Drug Dosing 71.6 ml/min Est GFR ( Amer) 75.1 Est GFR (Non-Af Amer) 64.8 BUN/Creatinine Ratio 16.7 (10-20) Glucose 101 H (70-99) mg/dl Calcium 8.2 L (8.5-10.1) mg/dl Administered Medications Discontinued Medications Fentanyl Citrate (Fentanyl Citrate 100 Mcg/2 Ml Vial) 50 mcg IV NOW STA Stop: 01/01/20 19:02 Last Admin: 01/01/20 19:22 Dose: 50 mcg Documented by: [id number] Ioversol (Ioversol 100ml) 94 ml IV ONCE ONE Stop: 01/01/20 20:39 Last Admin: 01/01/20 20:38 Dose: 94 ml Documented by: [id number] Morphine Sulfate (Morphine Sulfate 4 Mg/Ml 1 Ml Carp\\Vial) 4 mg IV NOW STA Stop: 01/01/20 20:08 Last Admin: 01/01/20 20:23 Dose: 4 mg Documented by: [id number] Morphine Sulfate (Morphine Sulfate 4 Mg/Ml 1 Ml Carp\\Vial) 4 mg IV NOW STA Stop: 01/01/20 21:57 Last Admin: 01/01/20 22:19 Dose: 4 mg Documented by: [id number] Morphine Sulfate (Morphine Sulfate 4 Mg/Ml 1 Ml Carp\\Vial) 4 mg IV NOW STA Stop: 01/02/20 00:09 Last Admin: 01/02/20 00:16 Dose: 4 mg Documented by: [id number] Discharge Plan Visit Data Chief Complaint: Hip Pain Stated Complaint: R HIP PAIN ED Provider: Noam Farfan Discharge Problem: Acute hip pain, Hematoma of right hip Patient Disposition: Being Evaluated by Hospitalist Forms Stand Alone Forms: [facility] [place] [employer] Prescriptions Prescriptions: No Action ipratropium-albuterol 0.5 mg-3 mg(2.5 mg base)/3 mL Solution For Nebulization 3 ml INHALATION QID PRN (Reason: Shortness Of Breath) RF: 0 warfarin 5 mg Tablet 5 mg PO 6XWK RF: 0 fluticasone propionate [Flonase Allergy Relief] 50 mcg/actuation [place],Suspension 2 spray INTRANASAL DAILY RF: 0 Trelegy Ellipta 100-62.5-25 mcg Blister With Device 1 inh INHALATION DAILY RF: 0 spironolactone [Aldactone] 25 mg Tablet 25 mg PO BID RF: 0 furosemide 20 mg Tablet 20 mg PO BID RF: 0 ferrous sulfate 27 mg iron Tablet 27 mg PO BID RF: 0 multivitamin Tablet 1 tab PO DAILY RF: 0 desonide 0.05 % Cream 1 applic TOPICAL BID PRN (Reason: Rash) RF: 0 hydrocortisone valerate 0.2 % Cream 1 applic TOPICAL BID RF: 0 sertraline 100 mg Tablet 1.5 tab PO QAM RF: 0 clobetasol [Temovate] 0.05 % Cream 1 applic TOPICAL BID PRN (Reason: Rash) RF: 0 tramadol 50 mg Tablet 50 mg PO Q6H PRN (Reason: Pain) RF: 0 meloxicam 7.5 mg Tablet 7.5 mg PO DAILY PRN (Reason: Pain) RF: 0 lorazepam [Ativan] 0.5 mg Tablet 0.5 mg PO BID PRN (Reason: Anxiety) RF: 0 lorazepam [Ativan] 0.5 mg Tablet 1 mg PO HS PRN (Reason: Insomnia) RF: 0 pantoprazole [Protonix] 40 mg Tablet,Delayed Release (Dr/Ec) 40 mg PO QAM RF: 0 triamcinolone acetonide 0.1 % Ointment 1 applic topical DAILY PRN (Reason: Rash) RF: 0 triamterene-hydrochlorothiazid [Maxzide] 75-50 mg Tablet 0.5 tab PO QAM RF: 0 fluocinonide 0.05 % Solution 1 applic topical DAILY PRN (Reason: Itching) RF: 0 albuterol sulfate [Ventolin HFA] 90 mcg/actuation Hfa Aerosol Inhaler 2 puff INHALATION Q4H PRN (Reason: Shortness Of Breath Or Wheezing) RF: 0 Calcium 600 + D(3) 600 mg calcium- 200 unit Capsule 1 tab PO BID RF: 0 magnesium oxide 400 mg Capsule 400 mg PO BID RF: 0 potassium chloride 10 mEq Capsule, Extended Release 30 meq PO QAM RF: 0 potassium chloride 10 mEq Tablet Extended Release 20 meq PO HS RF: 0 warfarin [Coumadin] 5 mg Tablet 2.5 mg PO WK RF: 0 meclizine 25 mg tablet 25 mg PO TID PRN (Reason: dizziness) RF: 0 Referrals Referrals: Alvin Colon DO [Primary Care Provider] - Discharge Problem: Acute hip pain Qualifiers: Laterality: right Qualified Code(s): M25.551 - Pain in right hip Hematoma of right hip Qualifiers: Encounter type: initial encounter Qualified Code(s): S70.01XA - Contusion of right hip, initial encounter
--- NOTE | 2020-01-01 19:41 | XRay Report ---
XR pelvis 1-2V routine CLINICAL HISTORY: Right hip pain COMPARISON: None. DISCUSSION: There are bilateral total hip arthroplasties. There are no acute fractures or dislocation s. Degenerative changes are present within the lower lumbar spine. IMPRESSION: Postsurgical changes of bilateral total hip arthroplasties. No fractures or dislocations identified ACT 112: Negative or not required by law. Electronically signed by: Issa Aviles M.D. 01/01/2020 7:40 PM
--- NOTE | 2020-01-01 19:42 | XRay Report ---
XR femur RT 2V routine CLINICAL HISTORY: Right femur pain COMPARISON: None. DISCUSSION: There is a total right hip replacement. Degenerative changes are present the level the kn ee. There are no acute fractures. No destructive lesions are evident. IMPRESSION: Total right hip arthroplasty. No acute fractures identified. ACT 112: Negative or not required by law. Electronically signed by: Issa Aviles M.D. 01/01/2020 7:40 PM
[2020-01-01 19:49] LABS: Basophils # (auto) 0.02 K/uL (0-0.2); Basophils % (auto) 0.3 %; Eosinophils # (auto) 0.19 K/uL (0-0.5); Eosinophils % (auto) 2.9 %; Hematocrit (blood only) 36.5 % (37-47); Hemoglobin 10.7 g/dL (12.0-16.0); Lymphocytes # (auto) 0.74 K/uL (1.2-3.4); Lymphocytes % (auto) 11.4 %; Mean Corpuscular Hemoglobin 23.6 pg (25-34); Mean Corpuscular Hgb Conc 29.3 g/dL (32-36); Mean Corpuscular Volume 80.4 fL (80-100); Mean Platelet Volume 10.1 fL (7.4-10.4); Monocytes # (auto) 0.72 K/uL (0.11-0.59); Monocytes % (auto) 11.1 %; Neutrophils # (auto) 4.83 K/uL (1.4-6.5); Neutrophils % (auto) 74.3 %; Platelet Count 213 K/uL (130-400); RDW Coefficient of Variation 16.6 % (11.5-14.5); RDW Standard Deviation 49.5 fL (36.4-46.3); Red Blood Count 4.54 M/uL (4.2-5.4)
[2020-01-01 19:58] LABS: BUN Creatinine Ratio 16.7 (10-20); Calcium 8.2 mg/dl (8.5-10.1); Creatinine Clr Calc Pharmacy 71.6 ml/min; Est GFR (African American) 75.1; Est GFR (Non-African American) 64.8; Potassium 3.6 mmol/L (3.5-5.1)
[2020-01-01 19:59] LABS: INR 2.6 (0.9-1.1); Partial Thromboplastin Ratio 1.3; Partial Thromboplastin Time 36.3 Seconds (21.0-31.0); Prothrombin Time 26.4 Seconds (9.0-12.0)
[2020-01-01] MEDS ORDERED: MoRPHine SULFATE 4 MG/ML 1 ML CARP\\VIAL IV STA ×2 (20:07→21:56)
[2020-01-01] MEDS ORDERED: IOVERSOL 100ml IV ONE (20:38)
[2020-01-02] MEDS ORDERED: MoRPHine SULFATE 4 MG/ML 1 ML CARP\\VIAL IV STA (00:08)
[2020-01-02] MEDS ORDERED: ALBUTEROL HFA 8 GM INHALER INH PRN (02:37)
[2020-01-02] MEDS ORDERED: D5W AND NSS 1,000 ML IV SCH (02:37)
[2020-01-02] MEDS ORDERED: ACETAMINOPHEN 325 MG TAB PO PRN (02:37)
[2020-01-02] MEDS ORDERED: ALBUT/IPRATROP 3MG/0.5MG NEB 3 ML VIAL INH PRN (02:37)
[2020-01-02] MEDS ORDERED: ONDANSETRON INJ 2 MG/ML 2 ML VIAL IV PRN (02:37)
[2020-01-02] MEDS ORDERED: POLYETHYLENE (MIRALAX) 17 GM PACK PO PRN (02:37)
[2020-01-02] MEDS ORDERED: LORazepam 0.5 MG TAB PO PRN (02:37)
[2020-01-02] MEDS ORDERED: MECLIZINE HCL 25 MG TAB PO PRN (02:46)
[2020-01-02] MEDS ORDERED: CLOBETASOL PROPIONATE 0.05% OINT 15 GM TUBE EXT PRN (02:49)
[2020-01-02] MEDS: HYDROmorphone INJ 0.5 MG/0.5 ML SYR IV PRN ×3 (03:33→21:04)
--- NOTE | 2020-01-02 04:10 | History and Physical Report ---
DATE OF ADMISSION: 01/02/2020 CHIEF COMPLAINT: Right hip pain. 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 Lives alone, friends help her. Today, she was in the bathroom when she had severe pain in the right hip region. She could not put weight on the leg, which prompted her to come to the ER. Denies any injury, denies any bending down or lifting heavy weights. In the ER, imaging studies showed large right hip hematoma. With pain medication, pain is under control currently. Denies any other complaints. No chest pain, no shortness of breath, no cough, no fever, no chills, no headache, no blurred visions, no earache, no runny nose, no sore throat, no dysphagia, no nausea, no abdominal pain. Normal bowel and bladder movements. Currently resting comfortably and hemodynamically stable. ALLERGIES: PENICILLIN G. PAST MEDICAL HISTORY: As mentioned above. PAST SURGICAL HISTORY: Dental surgery, foot surgery in childhood for deformity, revision of the foot surgery on the left side, tonsillectomy, adenoidectomy, bilateral hip replacements, total hysterectomy. MEDICATIONS: The patient is on albuterol 2 puffs inhalation q. 4 hours p.r.n., calcium plus vitamin D 1 tablet p.o. b.i.d., clobetasol one application topically b.i.d. p.r.n., ferrous sulfate 325 mg p.o. daily,fluocinonide one application topically daily p.r.n., Flonase 2 sprays intranasal daily p.r.n., Lasix 20 mg p.o. daily, DuoNebs q.i.d. p.r.n., Ativan 0.5 mg p.o. b.i.d. p.r.n., Ativan 1 mg p.o. at bedtime p.r.n., magnesium 400 mg p.o. b.i.d., meclizine 25 mg p.o. t.i.d. p.r.n., multivitamin 1 tablet p.o. daily, Protonix 40 mg p.o. daily, potassium chloride 10 mEq p.o. daily, sertraline 150 mg p.o. daily, spironolactone 25 mg p.o. daily, tramadol 50 mg p.o. q. 6 hours p.r.n., Trelegy Ellipta 1 inhalation daily, triamcinolone topical daily p.r.n., Coumadin 5 mg p.o. 6 times a week, Coumadin 2.5 mg once a week. FAMILY HISTORY: Significant for sister has arthritis; mother has heart disorder and lung disorder; father has lung disorder. SOCIAL HISTORY: , lives alone. Quit smoking in 1996, smoked 1 pack a day for 20 years. Alcohol 1-2 glasses of wine per day. No drug use. REVIEW OF SYSTEMS: As per HPI. Rest of the review of systems negative. PHYSICAL EXAMINATION: GENERAL: The patient is of moderate built, not in acute distress. VITAL SIGNS: Temperature 37.1, pulse 72, respiratory rate 18, blood pressure 124/67, oxygen 100% on 3 liters. HEENT: No pallor, no icterus. Pupils equal, round, and reactive to light. NECK: No JVD, no neck masses. CARDIOVASCULAR: S1, S2 heard, regular rate and rhythm, no murmur, no gallop. RESPIRATORY SYSTEM: Normal AP diameter. No accessory muscle use. No wheezing, no crackles. ABDOMEN: Soft, bowel sounds present, nontender. No distention. CENTRAL NERVOUS SYSTEM: Cranial nerves II-XII grossly intact, nonfocal. EXTREMITIES: Painful right hip movements. No swelling of the extremities seen. LABORATORY DATA: WBC 6.5, hemoglobin 10.7, hematocrit 36.5, platelets 213, PT 26.4, INR 2.6, APTT 36.3. Sodium 139, potassium 3.6, chloride 103, bicarbonate 31, BUN 15, creatinine 0.9, serum glucose 101, calcium 8.2. IMAGING DATA: Right femur x-ray, total right hip arthroplasty, no acute fractures identified. Pelvic x-ray, postsurgical changes of the bilateral total hip arthroplasties. No fractures or dislocations identified. CT of the abdomen and pelvis, mild colonic diverticulosis without diverticulitis. Appendix not identified on this axial images. Hematoma around the right hip measuring 14 x [address] scan report pending. EKG: Ventricular paced rhythm at the rate of 71. ASSESSMENT AND PLAN: This is a 69-year-old female who presents with severe right hip pain and found to have a large right hip hematoma. 1. Severe right hip pain and large right hip hematoma 14 x 13 cm. The patient is on Coumadin. INR is 2.6. No injury or any weightlifting, looks like spontaneous, no prior history. Will control the pain with IV Dilaudid p.r.n. Will consult ortho in the a.m. Keep n.p.o. until seen by ortho. Consult PT and OT when stable. Monitor in the medical floor. 2. History of chronic respiratory failure and chronic obstructive pulmonary disease. Continue her home inhalers and nebs prn., currently stable, 3. History of atrial fibrillation, history of status post atrioventricular node ablation, status post biventricular pacemaker. Currently, rate is under control. We are holding Coumadin because of her hematoma. Follow the PT/INR. The patient is not on any rate-controlling medications. We will follow the final EKG report. If needed, we will do the pacemaker interrogation. 4. Chronic diastolic congestive heart failure, pulmonary hypertension. Recently, medication was adjusted by cardiology. Will continue her current medications. Will monitor for any volume overload. 5. History of depression and anxiety. Continue her home medications. 6. Gastroesophageal reflux disease, PPI. 7. Deep vein thrombosis prophylaxis, currently INR is therapeutic. DISPOSITION: Observe in medical floor. PT and OT prior to discharge. Social service to help with discharge planning. LATA
[2020-01-02 06:11] LABS: Basophils # (auto) 0.01 K/uL (0-0.2); Basophils % (auto) 0.1 %; Eosinophils # (auto) 0.01 K/uL (0-0.5); Eosinophils % (auto) 0.1 %; Hematocrit (blood only) 32.2 % (37-47); Hemoglobin 9.4 g/dL (12.0-16.0); Immature Granulocytes # (auto) 0.03 K/uL (0.00-0.02); Immature Granulocytes % (auto) 0.3 %; Lymphocytes # (auto) 0.51 K/uL (1.2-3.4); Lymphocytes % (auto) 5.4 %; Mean Corpuscular Hemoglobin 23.5 pg (25-34); Mean Corpuscular Hgb Conc 29.2 g/dL (32-36); Mean Corpuscular Volume 80.5 fL (80-100); Mean Platelet Volume 10.3 fL (7.4-10.4); Monocytes # (auto) 0.89 K/uL (0.11-0.59); Monocytes % (auto) 9.3 %; Neutrophils # (auto) 8.07 K/uL (1.4-6.5); Neutrophils % (auto) 84.8 %; Platelet Count 201 K/uL (130-400); RDW Coefficient of Variation 16.5 % (11.5-14.5); RDW Standard Deviation 49.5 fL (36.4-46.3); White Blood Count 9.52 K/uL (4.8-10.8)
[2020-01-02 06:19] LABS: INR 2.5 (0.9-1.1); Prothrombin Time 25.3 Seconds (9.0-12.0)
[2020-01-02 06:31] LABS: BUN Creatinine Ratio 15.6 (10-20); Calcium 8.4 mg/dl (8.5-10.1); Creatinine Clr Calc Pharmacy 76.6 ml/min; Est GFR (African American) 78.2; Est GFR (Non-African American) 67.5; Magnesium 1.9 mg/dl (1.8-2.4); Potassium 4.1 mmol/L (3.5-5.1)
--- NOTE | 2020-01-02 07:07 | Orthopedic Consultation ---
Date of Consultation January 02, 2020 Assessment & Plan (1) Pain due to total hip replacement: 13 cm gluteal hematoma, given recent surgical history and patient on Coumadin not unexpected findings, no surgical indications at this time. Patient may weight-bear as tolerated right lower extremity, PT/OT when medically stable, tight control of patient's INR. Ice to affected area, Lidoderm patch to affected area. Patient to follow-up with her primary surgeon with [facility] orth[facility] at [facility]. Thank you for the consultation. (2) Hematoma of right hip: History of Present Illness Reason for Consultation: Acute atraumatic right hip pain Attending Physician: Cipriano Carlton MD History of Present Illness The patient is a 69-year-old female with recent surgical history for right total hip arthroplasty performed in September 2019 at [facility] by Dr. Villa. Patient reports a relatively uneventful postoperative course however 1 day prior began to have increasing pain to her right hip with ambulation. Patient denies trauma. Patient denies any fevers or chills. Patient admits to pain that radiates down her entire right leg localized to the lateral aspect of her right hip. Due to increasing pain the patient reported to [facility] emergency department she was admitted for further inpatient observation and treatment for her right hip pain. Allergies Allergy/AdvReac Type Severity Reaction Status Date / Time Penicillins Allergy Severe SWELLING Verified 01/01/20 20:00 OF TONGUE AND THROAT Home Medications Home Medications Medication Instructions Recorded Confirmed Type Calcium 600 + D(3) 1 tab PO BID 03/29/18 01/01/20 History albuterol sulfate [Ventolin HFA] 2 puff INHALATION Q4H PRN 03/29/18 01/01/20 History clobetasol [Temovate] 1 applic TOPICAL BID PRN 03/29/18 01/01/20 History desonide 1 applic TOPICAL BID PRN 03/29/18 01/01/20 History fluocinonide 1 applic TOPICAL DAILY PRN 03/29/18 01/01/20 History hydrocortisone valerate 1 applic TOPICAL BID 03/29/18 01/01/20 History lorazepam [Ativan] 0.5 mg PO BID PRN 03/29/18 01/01/20 History lorazepam [Ativan] 1 mg PO HS PRN 03/29/18 01/01/20 History magnesium oxide 400 mg PO BID 03/29/18 01/01/20 History multivitamin 1 tab PO DAILY 03/29/18 01/01/20 History pantoprazole [Protonix] 40 mg PO QAM 03/29/18 01/01/20 History sertraline 1.5 tab PO QAM 03/29/18 01/01/20 History tramadol 50 mg PO Q6H PRN 03/29/18 01/01/20 History triamcinolone acetonide 1 applic TOPICAL DAILY PRN 03/29/18 01/01/20 History meclizine 25 mg PO TID PRN 07/06/18 01/01/20 History warfarin [Coumadin] 2.5 mg PO WK 07/06/18 01/01/20 History Trelegy Ellipta 1 inh INHALATION DAILY 08/17/18 01/01/20 History fluticasone propionate [Flonase 2 spray INTRANASAL DAILY 08/17/18 01/01/20 History Allergy Relief] ipratropium-albuterol 3 ml INHALATION QID PRN 08/17/18 01/01/20 History warfarin 5 mg PO 6XWK 08/17/18 01/01/20 History furosemide 20 mg PO DAILY 01/01/20 01/02/20 History spironolactone [Aldactone] 25 mg PO DAILY 01/01/20 01/02/20 History ferrous sulfate 325 mg PO DAILY 01/02/20 01/02/20 History potassium chloride 10 meq PO DAILY 01/02/20 01/02/20 History Patient History Medical History Anxiety Atrial fibrillation CHF (congestive heart failure) DIASTOLIC Chronic respiratory failure CKD (chronic kidney disease) STAGE III COPD (chronic obstructive pulmonary disease) "SEVERE" ON 3-4L CONTINUOUS Depression GERD (gastroesophageal reflux disease) Obesity Osteoarthritis Paroxysmal atrial fibrillation PFO (patent foramen ovale) Psoriasis Pulmonary nodules Raynauds syndrome Urinary incontinence Surgical History H/O foot surgery LEFT FOOT SURGERY History of cataract surgery RT/LEFT History of colonoscopy History of hysterectomy History of tonsillectomy History of tooth extraction Social History Smoking Status: Former smoker Cigarettes Per Day: 20; Second Hand Exposure: No; Hx Alcohol Use: Yes Alcohol type: wine Hx Substance Use: No Preferred Language: Martiniquais Communication Ability: Effective Visual Impairment: No 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 Beliefs That Will Affect Care: None Current Living Situation: Alone Current Living Situation Comment: LIVES ALONE [facility] Feels Safe at Home: Yes Safety Concerns: Feels Safe At This Time Assistive Devices: Walker Review of Systems Review of Systems: All systems reviewed & are unremarkable except as noted in HPI & below Constitutional: as per Subjective / HPI Physical Exam Physical Exam: RLE NVSI +EHL/FHL/TA/GS SILT grossly, +2 DP pulse, compartments soft NT, incision CDI, pain with active and passive range of motion of the right hip radiating down the right leg localized to the lateral aspect of the right hip over the incision, point tenderness to over the incision, incision is clean dry and intact no erythema or edema, drainage or signs of infection. Constitutional: WD/WN, vitals as above Results & Data ([facility]) Vital Signs (Past 12 Hours) Vital Signs Temp Pulse Pulse Resp BP BP Pulse Ox 01/02/20 02:38 36.8 C 72 18 119/71 93 01/02/20 02:04 72 18 124/67 100 01/02/20 00:16 70 18 123/67 100 01/01/20 20:42 73 20 120/69 100 Laboratory Results 01/02/20 01/02/20 01/02/20 Range/Units 06:00 06:00 06:00 WBC 9.52 (4.8-10.8) K/uL RBC 4.00 L (4.2-5.4) M/uL Hgb 9.4 L (12.0-16.0) g/dL Hct 32.2 L (37-47) % MCV 80.5 (80-100) fL MCH 23.5 L (25-34) pg MCHC 29.2 L (32-36) g/dL RDW Std Deviation 49.5 H (36.4-46.3) fL RDW Coeff of Daniela 16.5 H (11.5-14.5) % Plt Count 201 (130-400) K/uL MPV 10.3 (7.4-10.4) fL Immature Gran % (Auto) 0.3 % Neut % (Auto) 84.8 % Lymph % (Auto) 5.4 % Reagan % (Auto) 9.3 % Eos % (Auto) 0.1 % Baso % (Auto) 0.1 % Neut # (Auto) 8.07 H (1.4-6.5) K/uL Lymph # (Auto) 0.51 L (1.2-3.4) K/uL Reagan # (Auto) 0.89 H (0.11-0.59) K/uL Eos # (Auto) 0.01 (0-0.5) K/uL Baso # (Auto) 0.01 (0-0.2) K/uL Immature Gran # (Auto) 0.03 H (0.00-0.02) K/uL PT 25.3 H (9.0-12.0) Seconds INR 2.5 H (0.9-1.1) APTT (21.0-31.0) Seconds PTT Ratio Sodium 139 (136-145) mmol/L Potassium 4.1 (3.5-5.1) mmol/L Chloride 103 (98-107) mmol/L Carbon Dioxide 33 H (21-32) mmol/L Anion Gap 3.0 (3-11) BUN 14 (7-18) mg/dl Creatinine 0.87 (0.6-1.2) mg/dl Est Cr Clr Drug Dosing 76.6 ml/min Est GFR ( Amer) 78.2 Est GFR (Non-Af Amer) 67.5 BUN/Creatinine Ratio 15.6 (10-20) Glucose 147 H (70-99) mg/dl Calcium 8.4 L (8.5-10.1) mg/dl Magnesium 1.9 (1.8-2.4) mg/dl 01/01/20 01/01/20 01/01/20 Range/Units 19:14 19:14 19:14 WBC 6.50 (4.8-10.8) K/uL RBC 4.54 (4.2-5.4) M/uL Hgb 10.7 L (12.0-16.0) g/dL Hct 36.5 L (37-47) % MCV 80.4 (80-100) fL MCH 23.6 L (25-34) pg MCHC 29.3 L (32-36) g/dL RDW Std Deviation 49.5 H (36.4-46.3) fL RDW Coeff of Daniela 16.6 H (11.5-14.5) % Plt Count 213 (130-400) K/uL MPV 10.1 (7.4-10.4) fL Immature Gran % (Auto) 0.0 % Neut % (Auto) 74.3 % Lymph % (Auto) 11.4 % Reagan % (Auto) 11.1 % Eos % (Auto) 2.9 % Baso % (Auto) 0.3 % Neut # (Auto) 4.83 (1.4-6.5) K/uL Lymph # (Auto) 0.74 L (1.2-3.4) K/uL Reagan # (Auto) 0.72 H (0.11-0.59) K/uL Eos # (Auto) 0.19 (0-0.5) K/uL Baso # (Auto) 0.02 (0-0.2) K/uL Immature Gran # (Auto) 0.00 (0.00-0.02) K/uL PT 26.4 H (9.0-12.0) Seconds INR 2.6 H (0.9-1.1) APTT 36.3 H (21.0-31.0) Seconds PTT Ratio 1.3 Sodium 139 (136-145) mmol/L Potassium 3.6 (3.5-5.1) mmol/L Chloride 103 (98-107) mmol/L Carbon Dioxide 31 (21-32) mmol/L Anion Gap 5.0 (3-11) BUN 15 (7-18) mg/dl Creatinine 0.90 (0.6-1.2) mg/dl Est Cr Clr Drug Dosing 71.6 ml/min Est GFR ( Amer) 75.1 Est GFR (Non-Af Amer) 64.8 BUN/Creatinine Ratio 16.7 (10-20) Glucose 101 H (70-99) mg/dl Calcium 8.2 L (8.5-10.1) mg/dl Magnesium (1.8-2.4) mg/dl Diagnostic Findings XR pelvis 1-2V routine CLINICAL HISTORY: Right hip pain COMPARISON: None. DISCUSSION: There are bilateral total hip arthroplasties. There are no acute fractures or dislocations. Degenerative changes are present within the lower lumbar spine. IMPRESSION: Postsurgical changes of bilateral total hip arthroplasties. No fractures or dislocations identified XR femur RT 2V routine CLINICAL HISTORY: Right femur pain COMPARISON: None. DISCUSSION: There is a total right hip replacement. Degenerative changes are present the level the knee. There are no acute fractures. No destructive lesions are evident. IMPRESSION: Total right hip arthroplasty. No acute fractures identified. (1) Hematoma of right hip Encounter type: initial encounter Qualified Code(s): S70.01XA - Contusion of right hip, initial encounter
--- NOTE | 2020-01-02 08:02 | CT Scan Report ---
CT abd pelvis IV con only CLINICAL HISTORY: Right lower quadrant abdominal pain COMPARISON STUDY: None. TECHNIQUE: The patient was scanned in a dynamic helical fashion during intravenous administration of 94 cc of Optiray 320 A dose lowering technique was utilized adhering to the principles of ALARA. CT DOSE: 2179.48 mGy.cm FINDINGS: Lower chest: There is a 12 mm groundglass opacity within the right lower lobe as visualized on image #[id number]. There are several right lower lobe pulmonary nodules measuring up to 4 mm in diameter. There is a wispy opacity within the left lower lobe just above the level the diaphragm. There are no pleur al effusions Liver: The contrast-enhanced liver is normal in size, contour, and attenuation. There is no intrahepa tic biliary ductal dilatation. The hepatic veins and portal veins are patent. Gallbladder: Unremarkable. Spleen: Normal in size and attenuation. Pancreas: Unremarkable. Adrenal glands: Unremarkable. Kidneys: There is a nonobstructing 2 mm right renal calculus. There is a small right renal cortical s car. There is no hydronephrosis Bowel: There are no transition zones indicate bowel obstruction. There is [place] diverticulosis. There i s no evidence of acute diverticulitis. There are no findings to indicate acute appendicitis. Peritoneum: There is no intraperitoneal free air or abdominal ascites. Vasculature: The abdominal aorta is normal in course and caliber. Adenopathy: None. Pelvic viscera: The uterus is surgically absent Skeletal structures: There are bilateral total hip arthroplasties. There is a 13 cm right gluteal mas s, likely representing a hematoma. IMPRESSION: 1. 13 cm right gluteal mass, likely representing a hematoma 2. No evidence of bowel obstruction. No evidence of free air 3. Diverticulosis. No evidence of acute diverticulitis 4. 12 mm groundglass opacity within the right lower lobe. A six-month follow-up CT scan is recommende d per Fleischner criteria. Please refer to below summary of Fleischner criteria recommendations for follow-up of incidental CT n odules ([employer] [employer], Guidelines for management of small pulmonary nodules detected on CT scans: A sta tement from the Fleischner Society, Radiology 237: [phone].) SOLID NODULES Solitary nodule size: <6 mm * low risk patients: no follow-up needed * high risk patients: optional CT at 12 months Solitary nodule size: 6-8 mm * low risk patients: follow-up at 6-12 months, then consider further follow-up at 18-24 months * high risk patients: initial follow-up CT at 6-12 months and then at 18-24 months if no change Solitary nodule size: >8 mm * either low or high risk patients - consider follow-up CT at 3 months, and/or CT-PET, and/or biopsy Multiple nodules size: <6 mm * low risk patients: no routine follow-up * high risk patients: optional CT at 12 months Multiple nodules size: 6-8 mm * low risk patients: follow-up at 3-6 months, then consider further follow-up at 18-24 months * high risk patients: follow-up at 3-6 months, then at 18-24 months if no change Multiple nodules size: >8 mm * low risk patients: follow-up at 3-6 months, then consider further follow-up at 18-24 months * high risk patients: follow-up at 3-6 months, then at 18-24 months if no change Note: newly detected indeterminate nodule in persons 35 years of age or older. * low risk patients: minimal or absent history of smoking and/or other known risk factors * high risk patients: history of smoking or of other known risk factors (e.g. first degree relative with lung cancer, or exposure to asbestos, radon, uranium) * if a nodule up to 8 mm is partly solid or is ground glass further follow-up is required after 24 m onths to exclude possible slow growing adenocarcinoma (RAUL) SUBSOLID NODULES Solitary pure ground-glass nodule * nodule size <6 mm - no CT follow-up required * nodule size >=6 mm - follow-up CT at 6-12 months, then every 2 years until 5 years Solitary part-solid nodule * nodule size <6 mm - no CT follow-up required * nodule size >=6 mm - follow-up CT at 3-6 months. If unchanged, and solid component remains <6 mm, then annual follow-up for 5 years Multiple subsolid nodules * nodule size <6 mm - follow-up CT at 3-6 months, consider further follow-up at 2 and 4 years if sta ble * nodule size >=6 mm - follow-up CT at 3-6 months, subsequent management based on the most suspiciou s nodule(s) ACT 112: Positive. There are findings on this exam that require communication between the performing entity and the patient following Patient Test Result Information Act ([place] Act 112) guidelines. Electronically signed by: Issa Aviles M.D. 01/02/2020 8:01 AM
--- NOTE | 2020-01-02 09:00 | CT Scan Report ---
CT SCAN OF THE RIGHT HIP WITHOUT IV CONTRAST CLINICAL HISTORY: Right hip pain. COMPARISON STUDY: Radiographs of the pelvis and right femur dated 01/01/2020. TECHNIQUE: CT scan of the right femur is performed from the bony pelvis to the femoral shaft. Images are reviewed in the axial, sagittal, and coronal planes. IV contrast was not administered for this ex amination. 3-D reformats are created and assessed. A dose lowering technique was utilized adhering to the principles of ALARA. The examination is degraded by streak artifact from a right hip arthroplast y. FINDINGS: The skeletal structures are osteopenic. A bipolar right hip arthroplasty is in near-anatomi c alignment. No acute fracture is seen involving the right hip or the visualized right hemipelvis. No periprosthetic lucency is identified. There is a large soft tissue hematoma identified around the hi p, greatest laterally and posteriorly. This is centered in the gluteal musculature and measures appro ximately 13 x 12 x 10 cm. There is no evidence of right pelvic sidewall or inguinal adenopathy. The b ladder is normal as visualized. IMPRESSION: 1. No fracture is identified involving the right hip. Note that the examination is significantly degr aded by streak artifact from a right hip arthroplasty. 2. There is a large hematoma identified around the right hip centered in the gluteal musculature as d etailed above. ACT 112: Negative or not required by law. Dictated: 01/02/2020 7:19 AM Transcribed: 01/02/2020 8:54 AM Amy [id number] Electronically signed by: Rishi Alvarez M.D. 01/02/2020 8:58 AM
[2020-01-02] MEDS: FLUTICASONE FUROATE 100MCG 14 PUFFS/INHALER INH SCH (09:08)
[2020-01-02] MEDS: UMECLIDINIUM/VILANTEROL 62.5/25MCG 7 PUFFS/INHALER INH SCH (09:08)
[2020-01-02] MEDS: FLUTICASONE PROPIONATE NA SPR 16 GM BTL SCH (09:10)
[2020-01-02] MEDS: MULTIVITAMIN TAB PO SCH (09:11)
[2020-01-02] MEDS: PANTOprazole 40 MG TAB PO SCH (09:11)
[2020-01-02] MEDS: POTASSIUM CHLORIDE 10 MEQ TABCR PO SCH (09:11)
[2020-01-02] MEDS: FERROUS SULFATE 325 MG TAB PO SCH (09:12)
[2020-01-02] MEDS: SPIRONOLACTONE 25 MG TAB PO SCH (09:12)
[2020-01-02] MEDS: CALCIUM 600MG + VIT D 400 IU TAB PO SCH ×2 (09:12→21:03)
[2020-01-02] MEDS: FUROSEMIDE 20 MG TAB PO SCH (09:12)
[2020-01-02] MEDS: SERTRALINE HCL 50 MG TABLET PO SCH (09:13)
[2020-01-02] MEDS: LIDOCAINE 5% 1 PATCH TD SCH (09:13)
[2020-01-02] MEDS: MAGNESIUM OXIDE 400 MG TAB PO SCH ×2 (09:13→21:03)
[2020-01-02] MEDS: traMADol HCL 50 MG TABLET PO PRN ×2 (09:16→19:04)
--- NOTE | 2020-01-02 15:54 | Hospitalist Progress Note ---
Date of Service January 02, 2020 Assessment & Plan (1) Hematoma of right hip: Admitted with spontaneous right gluteal hemorrhage on Coumadin The hematoma seems to be quite large and measures 13 x 12 x 10 cm Status post right total hip replacement in September, in [place] Complains of pain with any movement of the right lower extremity Globin is dropped to 9.4 from 10.7 on admission Appreciate orthopedic input and recommendation Conservative management Monitor H&H PT and OT (2) Pain due to total hip replacement: (3) Atrial fibrillation: History of chronic atrial fibrillation status post pacemaker placement Has been on Coumadin INR is therapeutic at 2.5 Hold Coumadin for now (4) CKD (chronic kidney disease), stage III: Remains stable (5) CHF (congestive heart failure): No signs or on symptoms of fluid overload and/or CHF (6) COPD (chronic obstructive pulmonary disease): No exacerbation Admission and Anticipated Discharge Date Admission Date: January 02, 2020 Subjective 01/02/2020 The patient was seen and examined in medical floor She was admitted with spontaneous right gluteal hematoma with status post right hip replacement in September, at [place] She complains to have pain involving the right hip with any movement of the right lower extremity Denies any shortness of breath, chest pain and/or palpitation Denies any pain radiating to the right lower leg Review of Systems Review of Systems: All systems reviewed and are unremarkable except as noted below Musculoskeletal: + joint pain (Right hip pain) and + swelling (Right lateral hip and gluteal area with tenderness) Physical Exam Physical Exam: Lying in bed with some discomfort due to right hip pain Constitutional: well developed, well nourished, + acute distress, + ill appearing and + obese Eyes: PERRL, conjunctivae normal, anicteric sclerae ENMT: external ear and nose normal, oropharynx normal Neck: trachea midline, no thyromegaly Respiratory: normal respiratory effort; no respiratory distress Auscultation: lungs clear to auscultation bilaterally Cardiovascular: Rate/Rhythm: regular rate and regular rhythm Heart Sounds: + murmur Gastrointestinal (Abdomen): Inspection/Auscultation: abdomen normal to inspection and normal bowel sounds; abdomen not distended Percussion/Palpation: abdomen soft Musculoskeletal: Pain and swelling involving the right hip and adjoining area especially gluteal region. Any movement of the right lower extremity causes pain in the right hip Neurologic: Alert, awake and oriented x3 Psychiatric: A+Ox3, euthymic affect Lymphatic: no cervical or axillary lymphadenopathy Results & Data Results & Data ([facility]) Vital Signs (Past 12 Hours) Vital Signs Temp Pulse Resp BP Pulse Ox 01/02/20 07:28 36.6 C 70 18 127/74 98 Laboratory Results Short CBC 01/01/20 01/02/20 Range/Units 19:14 06:00 WBC 6.50 9.52 (4.8-10.8) K/uL Hgb 10.7 L 9.4 L (12.0-16.0) g/dL Hct 36.5 L 32.2 L (37-47) % Plt Count 213 201 (130-400) K/uL BMP 01/01/20 01/02/20 19:14 06:00 Sodium 139 139 Potassium 3.6 4.1 Chloride 103 103 Carbon Dioxide 31 33 H BUN 15 14 Creatinine 0.90 0.87 Glucose 101 H 147 H Calcium 8.2 L 8.4 L Medications Administered Current Inpatient Medications Acetaminophen (Acetaminophen 325 Mg Tab) 650 mg PO Q4H PRN PRN Reason: pain/fever Stop: 02/01/20 02:36 Albuterol (Albuterol Hfa 8 Gm Inhaler) 2 puffs INH Q4H PRN PRN Reason: Shortness Of Breath Or Wheezing Stop: 02/01/20 02:36 Albuterol (Albut/Ipratrop 3mg/0.5mg Neb 3 Ml Vial) 3 ml INH QID PRN PRN Reason: Shortness Of Breath Stop: 02/01/20 02:36 Clobetasol Propionate (Clobetasol Propionate 0.05% Oint 15 Gm Tube) 1 appln EXT BID PRN PRN Reason: Rash Stop: 02/01/20 02:48 Ferrous Sulfate (Ferrous Sulfate 325 Mg Tab) 325 mg PO DAILY [facility] Stop: 02/01/20 08:59 Last Admin: 01/02/20 09:12 Dose: 325 mg Documented by: Fluticasone Furoate (Fluticasone Furoate 100mcg 14 Puffs/Inhaler) 1 puffs INH DAILY [facility] Stop: 02/01/20 08:59 Last Admin: 01/02/20 09:08 Dose: 1 puffs Documented by: Fluticasone Propionate (Fluticasone Propionate Na Spr 16 Gm Btl) 2 sprays NA DAILY [facility] Stop: 02/01/20 08:59 Last Admin: 01/02/20 09:10 Dose: 2 sprays Documented by: Furosemide (Furosemide 20 Mg Tab) 20 mg PO DAILY [facility] Stop: 02/01/20 08:59 Last Admin: 01/02/20 09:12 Dose: 20 mg Documented by: Hydromorphone HCl (Hydromorphone Inj 0.5 Mg/0.5 Ml Syr) 0.5 mg IV Q3H PRN PRN Reason: Pain Stop: 01/16/20 02:36 Last Admin: 01/02/20 06:33 Dose: 0.5 mg Documented by: Lidocaine (Lidocaine 5% 1 Patch) 1 patch TD QAM [facility] Stop: 02/01/20 08:59 Last Admin: 01/02/20 09:13 Dose: 1 patch Documented by: Lorazepam (Lorazepam 0.5 Mg Tab) 0.5 mg PO BID PRN PRN Reason: Anxiety Stop: 02/01/20 02:36 Lorazepam (Lorazepam 1 Mg Tab) 1 mg PO HS PRN PRN Reason: Insomnia Stop: 02/01/20 02:36 Magnesium Oxide (Magnesium Oxide 400 Mg Tab) 400 mg PO BID [facility] Stop: 02/01/20 08:59 Last Admin: 01/02/20 09:13 Dose: 400 mg Documented by: Meclizine HCl (Meclizine Hcl 25 Mg Tab) 25 mg PO TID PRN PRN Reason: dizziness Stop: 02/01/20 02:45 Miscellaneous (Remove Lidoderm Patch) 1 ea N/A DAILY@2100 [facility] Stop: 02/01/20 20:59 Multivitamins (Multivitamin Tab) 1 tab PO DAILY [facility] Stop: 02/01/20 08:59 Last Admin: 01/02/20 09:11 Dose: 1 tab Documented by: Multivitamins/Minerals (Calcium 600mg + Vit D 400 Iu Tab) 1 tab PO BID [facility] Stop: 02/01/20 08:59 Last Admin: 01/02/20 09:12 Dose: 1 tab Documented by: Ondansetron HCl (Ondansetron Inj 2 Mg/Ml 2 Ml Vial) 4 mg IV Q6H PRN PRN Reason: Nausea Stop: 02/01/20 02:36 Pantoprazole Sodium (Pantoprazole 40 Mg Tab) 40 mg PO QAM [facility] Stop: 02/01/20 08:59 Last Admin: 01/02/20 09:11 Dose: 40 mg Documented by: Polyethylene Glycol (Polyethylene (Miralax) 17 Gm Pack) 17 gm PO DAILY PRN PRN Reason: Constipation Stop: 02/01/20 02:36 Potassium Chloride (Potassium Chloride 10 Meq Tabcr) 10 meq PO DAILY [facility] Stop: 02/01/20 08:59 Last Admin: 01/02/20 09:11 Dose: 10 meq Documented by: Sertraline HCl (Sertraline Hcl 50 Mg Tablet) 150 mg PO QAM [facility] Stop: 02/01/20 08:59 Last Admin: 01/02/20 09:13 Dose: 150 mg Documented by: Spironolactone (Spironolactone 25 Mg Tab) 25 mg PO DAILY [facility] Stop: 02/01/20 08:59 Last Admin: 01/02/20 09:12 Dose: 25 mg Documented by: Tramadol HCl (Tramadol Hcl 50 Mg Tablet) 50 mg PO Q6H PRN PRN Reason: Pain Stop: 02/01/20 02:36 Last Admin: 01/02/20 09:16 Dose: 50 mg Documented by: Umeclidinium/Vilanterol (Umeclidinium/Vilanterol 62.5/25mcg 7 Puffs/Inhaler) 1 puffs INH DAILY [facility] Stop: 02/01/20 08:59 Last Admin: 01/02/20 09:08 Dose: 1 puffs Documented by: (1) Hematoma of right hip Encounter type: initial encounter Qualified Code(s): S70.01XA - Contusion of right hip, initial encounter (2) CHF (congestive heart failure) Heart failure type: diastolic Heart failure chronicity: chronic Qualified Code(s): I50.32 - Chronic diastolic (congestive) heart failure (3) COPD (chronic obstructive pulmonary disease) COPD type: emphysema Emphysema type: unspecified Qualified Code(s): J43.9 - Emphysema, unspecified
--- NOTE | 2020-01-02 16:55 | Electrocardiogram Report ---
Test Reason : Blood Pressure : / mmHG Vent. Rate : 071 BPM Atrial Rate : 394 BPM P-R Int : 000 ms QRS Dur : 162 ms QT Int : 474 ms P-R-T Axes : 000 264 065 degrees QTc Int : 515 ms Ventricular-paced rhythm Abnormal ECG When compared with ECG of 03-SEP-2018 01:21, Vent. rate has decreased BY 18 BPM Confirmed by Cory Abrams ([id number]) on 01/02/2020 4:55:21 PM Referred By: REFERRED SELF Confirmed By:Jamir Abrams
[2020-01-02] MEDS: LORazepam 1 MG TAB PO PRN (19:04)
[2020-01-03] MEDS: traMADol HCL 50 MG TABLET PO PRN ×3 (01:14→21:17)
[2020-01-03] MEDS: diphenhydrAMINE Capsule 25 MG CAP PO PRN ×3 (02:23→21:00)
[2020-01-03 06:25] LABS: INR 3.1 (0.9-1.1); Prothrombin Time 30.4 Seconds (9.0-12.0)
[2020-01-03 06:59] LABS: Hematocrit (blood only) 28.6 % (37-47); Hemoglobin 8.4 g/dL (12.0-16.0); Mean Corpuscular Hemoglobin 23.5 pg (25-34); Mean Corpuscular Hgb Conc 29.4 g/dL (32-36); Mean Corpuscular Volume 80.1 fL (80-100); Mean Platelet Volume 10.3 fL (7.4-10.4); Platelet Count 174 K/uL (130-400); RDW Coefficient of Variation 16.6 % (11.5-14.5); RDW Standard Deviation 48.8 fL (36.4-46.3); Red Blood Count 3.57 M/uL (4.2-5.4)
[2020-01-03 07:01] LABS: Basophils # (auto) 0.01 K/uL (0-0.2); Basophils % (auto) 0.2 %; Eosinophils # (auto) 0.07 K/uL (0-0.5); Eosinophils % (auto) 1.1 %; Immature Granulocytes # (auto) 0.01 K/uL (0.00-0.02); Immature Granulocytes % (auto) 0.2 %; Lymphocytes # (auto) 0.63 K/uL (1.2-3.4); Lymphocytes % (auto) 9.7 %; Monocytes # (auto) 0.83 K/uL (0.11-0.59); Monocytes % (auto) 12.8 %; Neutrophils # (auto) 4.95 K/uL (1.4-6.5); RBC Morphology Unremarkable
[2020-01-03] MEDS: FLUTICASONE FUROATE 100MCG 14 PUFFS/INHALER INH SCH (09:21)
[2020-01-03] MEDS: UMECLIDINIUM/VILANTEROL 62.5/25MCG 7 PUFFS/INHALER INH SCH (09:21)
[2020-01-03] MEDS: FLUTICASONE PROPIONATE NA SPR 16 GM BTL SCH (09:21)
[2020-01-03] MEDS: PANTOprazole 40 MG TAB PO SCH (09:22)
[2020-01-03] MEDS: SPIRONOLACTONE 25 MG TAB PO SCH (09:22)
[2020-01-03] MEDS: CALCIUM 600MG + VIT D 400 IU TAB PO SCH ×2 (09:22→21:01)
[2020-01-03] MEDS: FERROUS SULFATE 325 MG TAB PO SCH (09:22)
[2020-01-03] MEDS: FUROSEMIDE 20 MG TAB PO SCH (09:22)
[2020-01-03] MEDS: SERTRALINE HCL 50 MG TABLET PO SCH (09:23)
[2020-01-03] MEDS: MAGNESIUM OXIDE 400 MG TAB PO SCH ×2 (09:23→21:00)
[2020-01-03] MEDS: LIDOCAINE 5% 1 PATCH TD SCH (09:23)
[2020-01-03] MEDS: POTASSIUM CHLORIDE 10 MEQ TABCR PO SCH (09:23)
[2020-01-03] MEDS: MULTIVITAMIN TAB PO SCH (09:23)
--- NOTE | 2020-01-03 18:32 | Hospitalist Progress Note ---
Date of Service January 03, 2020 Assessment & Plan (1) Hematoma of right hip: Admitted with spontaneous right gluteal hemorrhage on Coumadin The hematoma seems to be quite large and measures 13 x 12 x 10 cm Status post right total hip replacement in September, in [place] Complains of pain with any movement of the right lower extremity Globin is dropped to 9.4 from 10.7 on admission Appreciate orthopedic input and recommendation Conservative management Hemoglobin has dropped to 8.4 from 10.7 on admission. Pain seems to be stable We will monitor hemoglobin If the hemoglobin is stable we will start PT and OT evaluation (2) Pain due to total hip replacement: (3) Atrial fibrillation: History of chronic atrial fibrillation status post pacemaker placement Has been on Coumadin INR is therapeutic at 2.5 INR is elevated at 3.1-we will give 1.25 mg of oral vitamin K since hemoglobin is dropped (4) CKD (chronic kidney disease), stage III: Remains stable (5) CHF (congestive heart failure): No signs or on symptoms of fluid overload and/or CHF (6) COPD (chronic obstructive pulmonary disease): No exacerbation Admission and Anticipated Discharge Date Admission Date: January 02, 2020 Subjective 01/02/2020 The patient was seen and examined in medical floor She was admitted with spontaneous right gluteal hematoma with status post right hip replacement in September, at [place] She complains to have pain involving the right hip with any movement of the right lower extremity Denies any shortness of breath, chest pain and/or palpitation Denies any pain radiating to the right lower leg 01/03/2020 The patient was seen and examined in the medical floor He has been feeling little better today Pain seems to be reasonably controlled Review of Systems Review of Systems: All systems reviewed and are unremarkable except as noted below Musculoskeletal: + joint pain (Right hip pain) and + swelling (Right lateral hip and gluteal area with tenderness) Physical Exam Physical Exam: Lying in bed with some discomfort due to right hip pain Constitutional: well developed, well nourished, + acute distress, + ill appearing and + obese Eyes: PERRL, conjunctivae normal, anicteric sclerae ENMT: external ear and nose normal, oropharynx normal Neck: trachea midline, no thyromegaly Respiratory: normal respiratory effort; no respiratory distress Auscultation: lungs clear to auscultation bilaterally Cardiovascular: Rate/Rhythm: regular rate and regular rhythm Heart Sounds: + murmur Gastrointestinal (Abdomen): Inspection/Auscultation: abdomen normal to inspection and normal bowel sounds; abdomen not distended Percussion/Palpation: abdomen soft Musculoskeletal: Tenderness involving the right hip joint and gluteal area Neurologic: moves all extremities; no focal motor deficits Alert, awake and oriented x3 Psychiatric: A+Ox3, euthymic affect Lymphatic: no cervical or axillary lymphadenopathy Results & Data Results & Data ([facility]) Vital Signs (Past 12 Hours) Vital Signs Temp Pulse Resp BP Pulse Ox 01/03/20 15:10 36.9 C 73 18 132/70 97 01/03/20 07:44 36.8 C 70 16 118/64 99 Laboratory Results Short CBC 01/03/20 Range/Units 05:50 WBC 6.50 (4.8-10.8) K/uL Hgb 8.4 L (12.0-16.0) g/dL Hct 28.6 L (37-47) % Plt Count 174 (130-400) K/uL Medications Administered Current Inpatient Medications Acetaminophen (Acetaminophen 325 Mg Tab) 650 mg PO Q4H PRN PRN Reason: pain/fever Stop: 02/01/20 02:36 Albuterol (Albuterol Hfa 8 Gm Inhaler) 2 puffs INH Q4H PRN PRN Reason: Shortness Of Breath Or Wheezing Stop: 02/01/20 02:36 Albuterol (Albut/Ipratrop 3mg/0.5mg Neb 3 Ml Vial) 3 ml INH QID PRN PRN Reason: Shortness Of Breath Stop: 02/01/20 02:36 Clobetasol Propionate (Clobetasol Propionate 0.05% Oint 15 Gm Tube) 1 appln EXT BID PRN PRN Reason: Rash Stop: 02/01/20 02:48 Diphenhydramine HCl (Diphenhydramine Hcl 25 Mg Cap) 25 mg PO TID PRN PRN Reason: Itching Stop: 02/02/20 01:44 Last Admin: 01/03/20 10:22 Dose: 25 mg Documented by: Ferrous Sulfate (Ferrous Sulfate 325 Mg Tab) 325 mg PO DAILY [facility] Stop: 02/01/20 08:59 Last Admin: 01/03/20 09:22 Dose: 325 mg Documented by: Fluticasone Furoate (Fluticasone Furoate 100mcg 14 Puffs/Inhaler) 1 puffs INH DAILY [facility] Stop: 02/01/20 08:59 Last Admin: 01/03/20 09:21 Dose: 1 puffs Documented by: Fluticasone Propionate (Fluticasone Propionate Na Spr 16 Gm Btl) 2 sprays NA DAILY [facility] Stop: 02/01/20 08:59 Last Admin: 01/03/20 09:21 Dose: 2 sprays Documented by: Furosemide (Furosemide 20 Mg Tab) 20 mg PO DAILY [facility] Stop: 02/01/20 08:59 Last Admin: 01/03/20 09:22 Dose: 20 mg Documented by: Hydromorphone HCl (Hydromorphone Inj 0.5 Mg/0.5 Ml Syr) 0.5 mg IV Q3H PRN PRN Reason: Pain Stop: 01/16/20 02:36 Last Admin: 01/02/20 21:04 Dose: 0.5 mg Documented by: Lidocaine (Lidocaine 5% 1 Patch) 1 patch TD QAM [facility] Stop: 02/01/20 08:59 Last Admin: 01/03/20 09:23 Dose: 1 patch Documented by: Lorazepam (Lorazepam 0.5 Mg Tab) 0.5 mg PO BID PRN PRN Reason: Anxiety Stop: 02/01/20 02:36 Lorazepam (Lorazepam 1 Mg Tab) 1 mg PO HS PRN PRN Reason: Insomnia Stop: 02/01/20 02:36 Last Admin: 01/02/20 19:04 Dose: 1 mg Documented by: Magnesium Oxide (Magnesium Oxide 400 Mg Tab) 400 mg PO BID [facility] Stop: 02/01/20 08:59 Last Admin: 01/03/20 09:23 Dose: 400 mg Documented by: Meclizine HCl (Meclizine Hcl 25 Mg Tab) 25 mg PO TID PRN PRN Reason: dizziness Stop: 02/01/20 02:45 Miscellaneous (Remove Lidoderm Patch) 1 ea N/A DAILY@2100 [facility] Stop: 02/01/20 20:59 Last Admin: 01/02/20 21:04 Dose: 1 ea Documented by: Multivitamins (Multivitamin Tab) 1 tab PO DAILY [facility] Stop: 02/01/20 08:59 Last Admin: 01/03/20 09:23 Dose: 1 tab Documented by: Multivitamins/Minerals (Calcium 600mg + Vit D 400 Iu Tab) 1 tab PO BID [facility] Stop: 02/01/20 08:59 Last Admin: 01/03/20 09:22 Dose: 1 tab Documented by: Ondansetron HCl (Ondansetron Inj 2 Mg/Ml 2 Ml Vial) 4 mg IV Q6H PRN PRN Reason: Nausea Stop: 02/01/20 02:36 Pantoprazole Sodium (Pantoprazole 40 Mg Tab) 40 mg PO QAM [facility] Stop: 02/01/20 08:59 Last Admin: 01/03/20 09:22 Dose: 40 mg Documented by: Polyethylene Glycol (Polyethylene (Miralax) 17 Gm Pack) 17 gm PO DAILY PRN PRN Reason: Constipation Stop: 02/01/20 02:36 Potassium Chloride (Potassium Chloride 10 Meq Tabcr) 10 meq PO DAILY [facility] Stop: 02/01/20 08:59 Last Admin: 01/03/20 09:23 Dose: 10 meq Documented by: Sertraline HCl (Sertraline Hcl 50 Mg Tablet) 150 mg PO QAM [facility] Stop: 02/01/20 08:59 Last Admin: 01/03/20 09:23 Dose: 150 mg Documented by: Spironolactone (Spironolactone 25 Mg Tab) 25 mg PO DAILY [facility] Stop: 02/01/20 08:59 Last Admin: 01/03/20 09:22 Dose: 25 mg Documented by: Tramadol HCl (Tramadol Hcl 50 Mg Tablet) 50 mg PO Q6H PRN PRN Reason: Pain Stop: 02/01/20 02:36 Last Admin: 01/03/20 09:21 Dose: 50 mg Documented by: Umeclidinium/Vilanterol (Umeclidinium/Vilanterol 62.5/25mcg 7 Puffs/Inhaler) 1 puffs INH DAILY [facility] Stop: 02/01/20 08:59 Last Admin: 01/03/20 09:21 Dose: 1 puffs Documented by: (1) CHF (congestive heart failure) Heart failure chronicity: chronic Heart failure type: diastolic Qualified Code(s): I50.32 - Chronic diastolic (congestive) heart failure (2) COPD (chronic obstructive pulmonary disease) COPD type: emphysema Emphysema type: unspecified Qualified Code(s): J43.9 - Emphysema, unspecified (3) Hematoma of right hip Encounter type: initial encounter Qualified Code(s): S70.01XA - Contusion of right hip, initial encounter
[2020-01-03] MEDS ORDERED: PHYTONADIONE 5 MG TAB PO ONE (19:00)
[2020-01-03] MEDS: LORazepam 1 MG TAB PO PRN (21:00)
[2020-01-03] MEDS: HYDROmorphone INJ 0.5 MG/0.5 ML SYR IV PRN (22:13)
[2020-01-04] MEDS: HYDROmorphone INJ 0.5 MG/0.5 ML SYR IV PRN (01:38)
[2020-01-04 06:32] LABS: INR 1.4 (0.9-1.1); Prothrombin Time 14.5 Seconds (9.0-12.0)
[2020-01-04 06:37] LABS: Hematocrit (blood only) 24.7 % (37-47); Hemoglobin 7.2 g/dL (12.0-16.0); Mean Corpuscular Hemoglobin 23.5 pg (25-34); Mean Corpuscular Hgb Conc 29.1 g/dL (32-36); Mean Corpuscular Volume 80.5 fL (80-100); Mean Platelet Volume 10.3 fL (7.4-10.4); Platelet Count 165 K/uL (130-400); RDW Standard Deviation 49.4 fL (36.4-46.3); Red Blood Count 3.07 M/uL (4.2-5.4); White Blood Count 7.55 K/uL (4.8-10.8)
[2020-01-04 06:50] LABS: Basophils # (auto) 0.02 K/uL (0-0.2); Basophils % (auto) 0.3 %; Eosinophils # (auto) 0.09 K/uL (0-0.5); Eosinophils % (auto) 1.2 %; Hypochromasia Present; Immature Granulocytes # (auto) 0.01 K/uL (0.00-0.02); Immature Granulocytes % (auto) 0.1 %; Lymphocytes % (auto) 6.6 %; Monocytes % (auto) 14.6 %; Neutrophils # (auto) 5.83 K/uL (1.4-6.5); Neutrophils % (auto) 77.2 %
--- NOTE | 2020-01-04 07:28 | Hospitalist Progress Note ---
Date of Service January 04, 2020 Assessment & Plan (1) Hematoma of right hip: Admitted with spontaneous right gluteal hemorrhage on Coumadin The hematoma seems to be quite large and measures 13 x 12 x 10 cm Status post right total hip replacement in September, in [place] Complains of pain with any movement of the right lower extremity Hgb dropped to 9.4 from 10.7 on admission Appreciate orthopedic input and recommendation Conservative management Hemoglobin has dropped to 8.4 from 10.7 on admission, now down to 7.2 - blood consent obtained, repeat H&H in the PM (01/03) Pain seems to be stable We will monitor hemoglobin If the hemoglobin is stable we will start PT and OT evaluation (2) Pain due to total hip replacement: lidocaine patch applied, ice applied -tramadol prn (3) Atrial fibrillation: History of chronic atrial fibrillation status post pacemaker placement Has been on Coumadin INR is therapeutic at 2.5 INR is elevated at 3.1 (01/02) - gave oral vitamin K since hemoglobin is dropped INR (01/03) 1.4 cont. to monitor (4) CKD (chronic kidney disease), stage III: Remains stable (5) CHF (congestive heart failure): No signs or symptoms of fluid overload and/or CHF (6) COPD (chronic obstructive pulmonary disease): No exacerbation Admission and Anticipated Discharge Date Admission Date: January 02, 2020 Subjective Pt is lying in bed, in NAD, currently denies any shortness of breath but states that with exertion she gets short of breath and dizzy. She only was out of bed to commode. Hgb 7.2, discussed with the pt that we will cont. to monitor her blood counts and we may need to transfuse her. Pt understands. R hip pain currently well controlled, but says yesterday it was bothering her. Review of Systems Review of Systems: All systems reviewed & are unremarkable except as noted in HPI & below Constitutional: no fever and no chills Respiratory: + dyspnea on exertion Cardiovascular: no chest pain and no palpitations Gastrointestinal: no abdominal pain, no nausea and no vomiting Musculoskeletal: + joint pain (Right hip pain) and + swelling (Right lateral hip and gluteal area with tenderness) Physical Exam Physical Exam: Physical Exam: Elderly female sitting up in bed in NAD Constitutional: well developed, well nourished, NAD, + ill appearing and + obese Eyes: PERRL, EOMI, conjunctivae normal, anicteric sclerae ENMT: external ear and nose normal, oropharynx normal Neck: trachea midline, no thyromegaly Respiratory: normal respiratory effort; no respiratory distress Auscultation: lungs clear to auscultation bilaterally, no wheezing, rhonchi, crackles Cardiovascular: Rate/Rhythm: regular rate and regular rhythm Heart Sounds: + murmur Gastrointestinal (Abdomen): Inspection/Auscultation: abdomen normal to inspection and normal bowel sounds; abdomen not distended Percussion/Palpation: abdomen soft Musculoskeletal: Tenderness involving the right hip joint and gluteal area Neurologic: moves all extremities; no focal motor deficits Alert, awake and oriented x3 Psychiatric: A+Ox3, euthymic affect Lymphatic: no cervical or axillary lymphadenopathy Results & Data Results & Data ([facility]) Vital Signs (Past 12 Hours) Vital Signs Temp Pulse Resp BP BP Pulse Ox 01/03/20 23:10 37.0 C 77 18 147/68 H 96 01/03/20 22:12 130/70 Laboratory Results 01/04/20 01/04/20 Range/Units 06:05 06:05 WBC 7.55 (4.8-10.8) K/uL RBC 3.07 L (4.2-5.4) M/uL Hgb 7.2 L (12.0-16.0) g/dL Hct 24.7 L (37-47) % MCV 80.5 (80-100) fL MCH 23.5 L (25-34) pg MCHC 29.1 L (32-36) g/dL RDW Std Deviation 49.4 H (36.4-46.3) fL RDW Coeff of Daniela 17.0 H (11.5-14.5) % Plt Count 165 (130-400) K/uL MPV 10.3 (7.4-10.4) fL Immature Gran % (Auto) 0.1 % Neut % (Auto) 77.2 % Lymph % (Auto) 6.6 % [place] % (Auto) 14.6 % Eos % (Auto) 1.2 % Baso % (Auto) 0.3 % Neut # (Auto) 5.83 (1.4-6.5) K/uL Lymph # (Auto) 0.50 L (1.2-3.4) K/uL [place] # (Auto) 1.10 H (0.11-0.59) K/uL Eos # (Auto) 0.09 (0-0.5) K/uL Baso # (Auto) 0.02 (0-0.2) K/uL Immature Gran # (Auto) 0.01 (0.00-0.02) K/uL Hypochromasia Present PT 14.5 H (9.0-12.0) Seconds INR 1.4 H (0.9-1.1) Medications Administered Current Inpatient Medications Acetaminophen (Acetaminophen 325 Mg Tab) 650 mg PO Q4H PRN PRN Reason: pain/fever Stop: 02/01/20 02:36 Albuterol (Albuterol Hfa 8 Gm Inhaler) 2 puffs INH Q4H PRN PRN Reason: Shortness Of Breath Or Wheezing Stop: 02/01/20 02:36 Albuterol (Albut/Ipratrop 3mg/0.5mg Neb 3 Ml Vial) 3 ml INH QID PRN PRN Reason: Shortness Of Breath Stop: 02/01/20 02:36 Clobetasol Propionate (Clobetasol Propionate 0.05% Oint 15 Gm Tube) 1 appln EXT BID PRN PRN Reason: Rash Stop: 02/01/20 02:48 Diphenhydramine HCl (Diphenhydramine Hcl 25 Mg Cap) 25 mg PO TID PRN PRN Reason: Itching Stop: 02/02/20 01:44 Last Admin: 01/03/20 21:00 Dose: 25 mg Documented by: Ferrous Sulfate (Ferrous Sulfate 325 Mg Tab) 325 mg PO DAILY [facility] Stop: 02/01/20 08:59 Last Admin: 01/03/20 09:22 Dose: 325 mg Documented by: Fluticasone Furoate (Fluticasone Furoate 100mcg 14 Puffs/Inhaler) 1 puffs INH DAILY [facility] Stop: 02/01/20 08:59 Last Admin: 01/03/20 09:21 Dose: 1 puffs Documented by: Fluticasone Propionate (Fluticasone Propionate Na Spr 16 Gm Btl) 2 sprays NA DAILY [facility] Stop: 02/01/20 08:59 Last Admin: 01/03/20 09:21 Dose: 2 sprays Documented by: Furosemide (Furosemide 20 Mg Tab) 20 mg PO DAILY [facility] Stop: 02/01/20 08:59 Last Admin: 01/03/20 09:22 Dose: 20 mg Documented by: Hydromorphone HCl (Hydromorphone Inj 0.5 Mg/0.5 Ml Syr) 0.5 mg IV Q3H PRN PRN Reason: Pain Stop: 01/16/20 02:36 Last Admin: 01/04/20 01:38 Dose: 0.5 mg Documented by: Lidocaine (Lidocaine 5% 1 Patch) 1 patch TD QAM [facility] Stop: 02/01/20 08:59 Last Admin: 01/03/20 09:23 Dose: 1 patch Documented by: Lorazepam (Lorazepam 0.5 Mg Tab) 0.5 mg PO BID PRN PRN Reason: Anxiety Stop: 02/01/20 02:36 Lorazepam (Lorazepam 1 Mg Tab) 1 mg PO HS PRN PRN Reason: Insomnia Stop: 02/01/20 02:36 Last Admin: 01/03/20 21:00 Dose: 1 mg Documented by: Magnesium Oxide (Magnesium Oxide 400 Mg Tab) 400 mg PO BID [facility] Stop: 02/01/20 08:59 Last Admin: 01/03/20 21:00 Dose: 400 mg Documented by: Meclizine HCl (Meclizine Hcl 25 Mg Tab) 25 mg PO TID PRN PRN Reason: dizziness Stop: 02/01/20 02:45 Miscellaneous (Remove Lidoderm Patch) 1 ea N/A DAILY@2100 [facility] Stop: 02/01/20 20:59 Last Admin: 01/03/20 21:02 Dose: 1 ea Documented by: Multivitamins (Multivitamin Tab) 1 tab PO DAILY [facility] Stop: 02/01/20 08:59 Last Admin: 01/03/20 09:23 Dose: 1 tab Documented by: Multivitamins/Minerals (Calcium 600mg + Vit D 400 Iu Tab) 1 tab PO BID [facility] Stop: 02/01/20 08:59 Last Admin: 01/03/20 21:01 Dose: 1 tab Documented by: Ondansetron HCl (Ondansetron Inj 2 Mg/Ml 2 Ml Vial) 4 mg IV Q6H PRN PRN Reason: Nausea Stop: 02/01/20 02:36 Pantoprazole Sodium (Pantoprazole 40 Mg Tab) 40 mg PO QAM [facility] Stop: 02/01/20 08:59 Last Admin: 01/03/20 09:22 Dose: 40 mg Documented by: Polyethylene Glycol (Polyethylene (Miralax) 17 Gm Pack) 17 gm PO DAILY PRN PRN Reason: Constipation Stop: 02/01/20 02:36 Potassium Chloride (Potassium Chloride 10 Meq Tabcr) 10 meq PO DAILY [facility] Stop: 02/01/20 08:59 Last Admin: 01/03/20 09:23 Dose: 10 meq Documented by: Sertraline HCl (Sertraline Hcl 50 Mg Tablet) 150 mg PO QAM [facility] Stop: 02/01/20 08:59 Last Admin: 01/03/20 09:23 Dose: 150 mg Documented by: Spironolactone (Spironolactone 25 Mg Tab) 25 mg PO DAILY [facility] Stop: 02/01/20 08:59 Last Admin: 01/03/20 09:22 Dose: 25 mg Documented by: Tramadol HCl (Tramadol Hcl 50 Mg Tablet) 50 mg PO Q6H PRN PRN Reason: Pain Stop: 02/01/20 02:36 Last Admin: 01/03/20 21:17 Dose: 50 mg Documented by: Umeclidinium/Vilanterol (Umeclidinium/Vilanterol 62.5/25mcg 7 Puffs/Inhaler) 1 puffs INH DAILY [facility] Stop: 02/01/20 08:59 Last Admin: 01/03/20 09:21 Dose: 1 puffs Documented by: (1) Hematoma of right hip Encounter type: initial encounter Qualified Code(s): S70.01XA - Contusion of right hip, initial encounter (2) CHF (congestive heart failure) Heart failure type: diastolic Heart failure chronicity: chronic Qualified Code(s): I50.32 - Chronic diastolic (congestive) heart failure (3) COPD (chronic obstructive pulmonary disease) COPD type: emphysema Emphysema type: unspecified Qualified Code(s): J43.9 - Emphysema, unspecified
[2020-01-04] MEDS: SPIRONOLACTONE 25 MG TAB PO SCH (08:00)
[2020-01-04] MEDS: POTASSIUM CHLORIDE 10 MEQ TABCR PO SCH (08:00)
[2020-01-04] MEDS: SERTRALINE HCL 50 MG TABLET PO SCH (08:00)
[2020-01-04] MEDS: CALCIUM 600MG + VIT D 400 IU TAB PO SCH ×2 (08:00→20:22)
[2020-01-04] MEDS: MAGNESIUM OXIDE 400 MG TAB PO SCH ×2 (08:01→20:23)
[2020-01-04] MEDS: MULTIVITAMIN TAB PO SCH (08:01)
[2020-01-04] MEDS: LIDOCAINE 5% 1 PATCH TD SCH (08:01)
[2020-01-04] MEDS: FUROSEMIDE 20 MG TAB PO SCH (08:01)
[2020-01-04] MEDS: FERROUS SULFATE 325 MG TAB PO SCH (08:01)
[2020-01-04] MEDS: PANTOprazole 40 MG TAB PO SCH (08:01)
[2020-01-04] MEDS: FLUTICASONE PROPIONATE NA SPR 16 GM BTL SCH (08:02)
[2020-01-04] MEDS: UMECLIDINIUM/VILANTEROL 62.5/25MCG 7 PUFFS/INHALER INH SCH (08:02)
[2020-01-04] MEDS: FLUTICASONE FUROATE 100MCG 14 PUFFS/INHALER INH SCH (08:02)
[2020-01-04 17:04] LABS: Hematocrit (blood only) 24.5 % (37-47); Hemoglobin 7.2 g/dL (12.0-16.0)
[2020-01-04] MEDS: traMADol HCL 50 MG TABLET PO PRN (20:22)
[2020-01-04] MEDS: diphenhydrAMINE Capsule 25 MG CAP PO PRN (20:22)
[2020-01-05] MEDS: traMADol HCL 50 MG TABLET PO PRN (05:30)
[2020-01-05 06:51] LABS: Hematocrit (blood only) 23.2 % (37-47); Hemoglobin 6.7 g/dL (12.0-16.0); INR 1.1 (0.9-1.1); Mean Corpuscular Hemoglobin 23.4 pg (25-34); Mean Corpuscular Hgb Conc 28.9 g/dL (32-36); Mean Corpuscular Volume 81.1 fL (80-100); Platelet Count 157 K/uL (130-400); Prothrombin Time 11.3 Seconds (9.0-12.0); RDW Coefficient of Variation 17.2 % (11.5-14.5); RDW Standard Deviation 49.8 fL (36.4-46.3); Red Blood Count 2.86 M/uL (4.2-5.4); White Blood Count 4.48 K/uL (4.8-10.8)
[2020-01-05 07:14] LABS: BUN Creatinine Ratio 15.8 (10-20); Calcium 8.6 mg/dl (8.5-10.1); Creatinine Clr Calc Pharmacy 70.1 ml/min; Est GFR (African American) 70.3; Est GFR (Non-African American) 60.7; Potassium 3.7 mmol/L (3.5-5.1)
[2020-01-05] MEDS ORDERED: SODIUM CHLORIDE 0.9% 250 ML IV PRN (07:32)
--- NOTE | 2020-01-05 07:39 | Hospitalist Progress Note ---
Date of Service January 05, 2020 Assessment & Plan (1) Hematoma of right hip: Admitted with spontaneous right gluteal hemorrhage on Coumadin The hematoma seems to be quite large and measures 13 x 12 x 10 cm Status post right total hip replacement in September, in [place] Complains of pain with any movement of the right lower extremity Hgb dropped to 9.4 from 10.7 on admission Appreciate orthopedic input and recommendation Conservative management Hemoglobin has dropped to 8.4 from 10.7 on admission, now down to 7.2 - blood consent obtained, repeat H&H in the PM (01/03) Hgb 6.7 (01/04) -will transfuse 1 unit of packed red blood cells Pain seems to be stable We will monitor hemoglobin If the hemoglobin is stable we will start PT and OT evaluation (2) Pain due to total hip replacement: lidocaine patch applied, ice applied -tramadol prn (3) Atrial fibrillation: History of chronic atrial fibrillation status post pacemaker placement Has been on Coumadin INR is therapeutic at 2.5 INR is elevated at 3.1 (01/02) - gave oral vitamin K since hemoglobin is dropped INR (01/03) 1.4 INR (01/04) 1.1 cont. to monitor (4) CKD (chronic kidney disease), stage III: Remains stable (5) CHF (congestive heart failure): No signs or symptoms of fluid overload and/or CHF (6) COPD (chronic obstructive pulmonary disease): No exacerbation Admission and Anticipated Discharge Date Admission Date: January 04, 2020 Subjective Pt is lying in bed, in [facility], currently denies any shortness of breath but states that with exertion she gets short of breath and dizzy. She only was out of bed to commode. Hgb 6.7 this AM, transfuse 1 unit of packed red blood cells. INR 1.1. R hip pain currently well controlled. Review of Systems Review of Systems: All systems reviewed & are unremarkable except as noted in HPI & below All systems reviewed and are unremarkable except as noted below Constitutional: no fever and no chills Respiratory: + dyspnea on exertion; no cough Cardiovascular: no chest pain and no palpitations Gastrointestinal: no abdominal pain, no nausea and no vomiting Musculoskeletal: + joint pain (Right hip pain) and + swelling (Right lateral hip and gluteal area with tenderness) Physical Exam Physical Exam: Physical Exam: Elderly female sitting up in bed in [facility] Constitutional: well developed, well nourished, NAD, + ill appearing and + obese Eyes: PERRL, EOMI, conjunctivae normal, anicteric sclerae ENMT: external ear and nose normal, oropharynx normal Neck: trachea midline, no thyromegaly Respiratory: normal respiratory effort; no respiratory distress Auscultation: lungs clear to auscultation bilaterally, no wheezing, rhonchi, crackles Cardiovascular: Rate/Rhythm: regular rate and regular rhythm Heart Sounds: + murmur Gastrointestinal (Abdomen): Inspection/Auscultation: abdomen normal to inspection and normal bowel sounds; abdomen not distended Percussion/Palpation: abdomen soft Musculoskeletal: Tenderness involving the right hip joint and gluteal area Neurologic: moves all extremities; no focal motor deficits Alert, awake and oriented x3 Psychiatric: A+Ox3, euthymic affect Lymphatic: no cervical or axillary lymphadenopathy Results & Data Results & Data ([facility]) Vital Signs (Past 12 Hours) Vital Signs Temp Pulse Resp BP Pulse Ox 01/05/20 07:26 36.4 C L 71 16 122/70 100 01/04/20 23:14 36.8 C 70 16 129/69 98 Laboratory Results 01/05/20 01/05/20 01/05/20 Range/Units 06:19 06:19 06:19 WBC 4.48 L (4.8-10.8) K/uL RBC 2.86 L (4.2-5.4) M/uL Hgb 6.7 L* (12.0-16.0) g/dL Hct 23.2 L (37-47) % MCV 81.1 (80-100) fL MCH 23.4 L (25-34) pg MCHC 28.9 L (32-36) g/dL RDW Std Deviation 49.8 H (36.4-46.3) fL RDW Coeff of Daniela 17.2 H (11.5-14.5) % Plt Count 157 (130-400) K/uL MPV 10.0 (7.4-10.4) fL PT 11.3 (9.0-12.0) Seconds INR 1.1 (0.9-1.1) Sodium 140 (136-145) mmol/L Potassium 3.7 (3.5-5.1) mmol/L Chloride 102 (98-107) mmol/L Carbon Dioxide 37 H (21-32) mmol/L Anion Gap 1.0 L (3-11) BUN 15 (7-18) mg/dl Creatinine 0.95 (0.6-1.2) mg/dl Est Cr Clr Drug Dosing 70.1 ml/min Est GFR ( Amer) 70.3 Est GFR (Non-Af Amer) 60.7 BUN/Creatinine Ratio 15.8 (10-20) Glucose 100 H (70-99) mg/dl Calcium 8.6 (8.5-10.1) mg/dl 01/04/20 Range/Units 16:54 WBC (4.8-10.8) K/uL RBC (4.2-5.4) M/uL Hgb 7.2 L (12.0-16.0) g/dL Hct 24.5 L (37-47) % MCV (80-100) fL MCH (25-34) pg MCHC (32-36) g/dL RDW Std Deviation (36.4-46.3) fL RDW Coeff of Daniela (11.5-14.5) % Plt Count (130-400) K/uL MPV (7.4-10.4) fL PT (9.0-12.0) Seconds INR (0.9-1.1) Sodium (136-145) mmol/L Potassium (3.5-5.1) mmol/L Chloride (98-107) mmol/L Carbon Dioxide (21-32) mmol/L Anion Gap (3-11) BUN (7-18) mg/dl Creatinine (0.6-1.2) mg/dl Est Cr Clr Drug Dosing ml/min Est GFR ( Amer) Est GFR (Non-Af Amer) BUN/Creatinine Ratio (10-20) Glucose (70-99) mg/dl Calcium (8.5-10.1) mg/dl Medications Administered Current Inpatient Medications Acetaminophen (Acetaminophen 325 Mg Tab) 650 mg PO Q4H PRN PRN Reason: pain/fever Stop: 02/01/20 02:36 Last Admin: 01/05/20 00:52 Dose: 650 mg Documented by: Albuterol (Albuterol Hfa 8 Gm Inhaler) 2 puffs INH Q4H PRN PRN Reason: Shortness Of Breath Or Wheezing Stop: 02/01/20 02:36 Albuterol (Albut/Ipratrop 3mg/0.5mg Neb 3 Ml Vial) 3 ml INH QID PRN PRN Reason: Shortness Of Breath Stop: 02/01/20 02:36 Clobetasol Propionate (Clobetasol Propionate 0.05% Oint 15 Gm Tube) 1 appln EXT BID PRN PRN Reason: Rash Stop: 02/01/20 02:48 Diphenhydramine HCl (Diphenhydramine Hcl 25 Mg Cap) 25 mg PO TID PRN PRN Reason: Itching Stop: 02/02/20 01:44 Last Admin: 01/04/20 20:22 Dose: 25 mg Documented by: Ferrous Sulfate (Ferrous Sulfate 325 Mg Tab) 325 mg PO DAILY [facility] Stop: 02/01/20 08:59 Last Admin: 01/04/20 08:01 Dose: 325 mg Documented by: Fluticasone Furoate (Fluticasone Furoate 100mcg 14 Puffs/Inhaler) 1 puffs INH DAILY [facility] Stop: 02/01/20 08:59 Last Admin: 01/04/20 08:02 Dose: 1 puffs Documented by: Fluticasone Propionate (Fluticasone Propionate Na Spr 16 Gm Btl) 2 sprays NA DAILY [facility] Stop: 02/01/20 08:59 Last Admin: 01/04/20 08:02 Dose: 2 sprays Documented by: Furosemide (Furosemide 20 Mg Tab) 20 mg PO DAILY [facility] Stop: 02/01/20 08:59 Last Admin: 01/04/20 08:01 Dose: 20 mg Documented by: Hydromorphone HCl (Hydromorphone Inj 0.5 Mg/0.5 Ml Syr) 0.5 mg IV Q3H PRN PRN Reason: Pain Stop: 01/16/20 02:36 Last Admin: 01/04/20 01:38 Dose: 0.5 mg Documented by: Sodium Chloride (Nss) 250 mls @ 15 mls/hr IV .[id number] PRN PRN Reason: For Transfusion Stop: 01/05/20 17:33 Lidocaine (Lidocaine 5% 1 Patch) 1 patch TD QAM [facility] Stop: 02/01/20 08:59 Last Admin: 01/04/20 08:01 Dose: 1 patch Documented by: Lorazepam (Lorazepam 0.5 Mg Tab) 0.5 mg PO BID PRN PRN Reason: Anxiety Stop: 02/01/20 02:36 Lorazepam (Lorazepam 1 Mg Tab) 1 mg PO HS PRN PRN Reason: Insomnia Stop: 02/01/20 02:36 Last Admin: 01/03/20 21:00 Dose: 1 mg Documented by: Magnesium Oxide (Magnesium Oxide 400 Mg Tab) 400 mg PO BID [facility] Stop: 02/01/20 08:59 Last Admin: 01/04/20 20:23 Dose: 400 mg Documented by: Meclizine HCl (Meclizine Hcl 25 Mg Tab) 25 mg PO TID PRN PRN Reason: dizziness Stop: 02/01/20 02:45 Miscellaneous (Remove Lidoderm Patch) 1 ea N/A DAILY@2100 [facility] Stop: 02/01/20 20:59 Last Admin: 01/04/20 20:23 Dose: 1 ea Documented by: Multivitamins (Multivitamin Tab) 1 tab PO DAILY [facility] Stop: 02/01/20 08:59 Last Admin: 01/04/20 08:01 Dose: 1 tab Documented by: Multivitamins/Minerals (Calcium 600mg + Vit D 400 Iu Tab) 1 tab PO BID [facility] Stop: 02/01/20 08:59 Last Admin: 01/04/20 20:22 Dose: 1 tab Documented by: Ondansetron HCl (Ondansetron Inj 2 Mg/Ml 2 Ml Vial) 4 mg IV Q6H PRN PRN Reason: Nausea Stop: 02/01/20 02:36 Pantoprazole Sodium (Pantoprazole 40 Mg Tab) 40 mg PO QAM [facility] Stop: 02/01/20 08:59 Last Admin: 01/04/20 08:01 Dose: 40 mg Documented by: Polyethylene Glycol (Polyethylene (Miralax) 17 Gm Pack) 17 gm PO DAILY PRN PRN Reason: Constipation Stop: 02/01/20 02:36 Potassium Chloride (Potassium Chloride 10 Meq Tabcr) 10 meq PO DAILY [facility] Stop: 02/01/20 08:59 Last Admin: 01/04/20 08:00 Dose: 10 meq Documented by: Sertraline HCl (Sertraline Hcl 50 Mg Tablet) 150 mg PO QAM [facility] Stop: 02/01/20 08:59 Last Admin: 01/04/20 08:00 Dose: 150 mg Documented by: Spironolactone (Spironolactone 25 Mg Tab) 25 mg PO DAILY [facility] Stop: 02/01/20 08:59 Last Admin: 01/04/20 08:00 Dose: 25 mg Documented by: Tramadol HCl (Tramadol Hcl 50 Mg Tablet) 50 mg PO Q6H PRN PRN Reason: Pain Stop: 02/01/20 02:36 Last Admin: 01/05/20 05:30 Dose: 50 mg Documented by: Umeclidinium/Vilanterol (Umeclidinium/Vilanterol 62.5/25mcg 7 Puffs/Inhaler) 1 puffs INH DAILY [facility] Stop: 02/01/20 08:59 Last Admin: 01/04/20 08:02 Dose: 1 puffs Documented by: (1) CHF (congestive heart failure) Heart failure chronicity: chronic Heart failure type: diastolic Qualified Code(s): I50.32 - Chronic diastolic (congestive) heart failure (2) COPD (chronic obstructive pulmonary disease) COPD type: emphysema Emphysema type: unspecified Qualified Code(s): J43.9 - Emphysema, unspecified (3) Hematoma of right hip Encounter type: initial encounter Qualified Code(s): S70.01XA - Contusion of right hip, initial encounter
[2020-01-05] MEDS: MAGNESIUM OXIDE 400 MG TAB PO SCH ×2 (09:44→21:01)
[2020-01-05] MEDS: FUROSEMIDE 20 MG TAB PO SCH (09:44)
[2020-01-05] MEDS: CALCIUM 600MG + VIT D 400 IU TAB PO SCH ×2 (09:44→21:00)
[2020-01-05] MEDS: UMECLIDINIUM/VILANTEROL 62.5/25MCG 7 PUFFS/INHALER INH SCH (09:45)
[2020-01-05] MEDS: FLUTICASONE FUROATE 100MCG 14 PUFFS/INHALER INH SCH (09:45)
[2020-01-05] MEDS: POTASSIUM CHLORIDE 10 MEQ TABCR PO SCH (09:46)
[2020-01-05] MEDS: SPIRONOLACTONE 25 MG TAB PO SCH (09:46)
[2020-01-05] MEDS: SERTRALINE HCL 50 MG TABLET PO SCH (09:47)
[2020-01-05] MEDS: MULTIVITAMIN TAB PO SCH (09:47)
[2020-01-05] MEDS: PANTOprazole 40 MG TAB PO SCH (09:48)
[2020-01-05] MEDS: FERROUS SULFATE 325 MG TAB PO SCH (09:48)
[2020-01-05] MEDS: FLUTICASONE PROPIONATE NA SPR 16 GM BTL SCH (09:48)
[2020-01-05] MEDS: LIDOCAINE 5% 1 PATCH TD SCH (09:48)
[2020-01-05 16:23] LABS: Hematocrit (blood only) 27.3 % (37-47)
[2020-01-05] MEDS: HYDROmorphone INJ 0.5 MG/0.5 ML SYR IV PRN (20:56)
[2020-01-05] MEDS: diphenhydrAMINE Capsule 25 MG CAP PO PRN (21:08)
[2020-01-06] MEDS: HYDROmorphone INJ 0.5 MG/0.5 ML SYR IV PRN (00:02)
--- NOTE | 2020-01-06 07:29 | Hospitalist Progress Note ---
Date of Service January 06, 2020 Assessment & Plan (1) Hematoma of right hip: Admitted with spontaneous right gluteal hemorrhage on Coumadin The hematoma seems to be quite large and measures 13 x 12 x 10 cm Status post right total hip replacement in September, in [place] Complains of pain with any movement of the right lower extremity Hgb initially dropped to 9.4 from 10.7 on admission Appreciate orthopedic input and recommendation Conservative management Hemoglobin has dropped to 8.4 from 10.7 on admission, then down to 7.2 - blood consent obtained, repeat H&H in the PM (01/03) Hgb 6.7 (01/04) -> transfused 1 unit of packed red blood cells Hgb 8.3 (01/05) Pain seems to be stable We will monitor hemoglobin PT and OT evaluation - pt to return home with HH Follow up w/ orthop. surgery scheduled for 01/10. (2) Pain due to total hip replacement: lidocaine patch applied, ice applied -tramadol prn (3) Atrial fibrillation: History of chronic atrial fibrillation status post pacemaker placement Has been on Coumadin INR is therapeutic at 2.5 INR is elevated at 3.1 (01/02) - gave oral vitamin K since hemoglobin is dropped INR (01/03) 1.4 INR (01/04) 1.1 cont. to monitor (4) CKD (chronic kidney disease), stage III: Remains stable (5) CHF (congestive heart failure): No signs or symptoms of fluid overload and/or CHF (6) COPD (chronic obstructive pulmonary disease): No exacerbation Admission and Anticipated Discharge Date Admission Date: January 04, 2020 Subjective Pt is sitting up in bed, in [facility], currently denies any shortness of breath or chest pain. s/p blood transfusion yesterday, Hgb stable at 8. Pt states she feels well. Worked with PT and discussed return home. Also discussed follow up with surgery. R hip pain currently well controlled. Review of Systems Review of Systems: All systems reviewed & are unremarkable except as noted in HPI & below Constitutional: no fever and no chills Respiratory: no cough and no dyspnea Cardiovascular: no chest pain and no palpitations Gastrointestinal: no abdominal pain, no nausea and no vomiting Musculoskeletal: + joint pain (Right hip pain) and + swelling (Right lateral hip and gluteal area with tenderness) Physical Exam Physical Exam: Physical Exam: Elderly female sitting up in bed in [facility] Constitutional: well developed, well nourished, NAD, + ill appearing and + obese Eyes: PERRL, EOMI, conjunctivae normal, anicteric sclerae ENMT: external ear and nose normal, oropharynx normal Neck: trachea midline, no thyromegaly Respiratory: normal respiratory effort; no respiratory distress Auscultation: lungs clear to auscultation bilaterally, no wheezing, rhonchi, crackles Cardiovascular: Rate/Rhythm: regular rate and regular rhythm Heart Sounds: + murmur Gastrointestinal (Abdomen): Inspection/Auscultation: abdomen normal to inspection and normal bowel sounds; abdomen not distended Percussion/Palpation: abdomen soft Musculoskeletal: Tenderness involving the right hip joint and gluteal area Neurologic: moves all extremities; no focal motor deficits Alert, awake and oriented x3 Psychiatric: A+Ox3, euthymic affect Lymphatic: no cervical or axillary lymphadenopathy Results & Data Results & Data ([facility]) Vital Signs (Past 12 Hours) Vital Signs Temp Pulse Resp BP Pulse Ox 01/05/20 23:22 36.8 C 71 16 120/67 99 Laboratory Results 01/06/20 01/06/20 01/06/20 Range/Units 07:55 07:55 07:55 WBC 5.24 (4.8-10.8) K/uL RBC 3.38 L (4.2-5.4) M/uL Hgb 8.3 L (12.0-16.0) g/dL Hct 28.5 L (37-47) % MCV 84.3 (80-100) fL MCH 24.6 L (25-34) pg MCHC 29.1 L (32-36) g/dL RDW Std Deviation 56.0 H (36.4-46.3) fL RDW Coeff of Daniela 18.5 H (11.5-14.5) % Plt Count 189 (130-400) K/uL MPV 9.8 (7.4-10.4) fL PT 10.9 (9.0-12.0) Seconds INR 1.0 (0.9-1.1) Sodium 139 (136-145) mmol/L Potassium 3.8 (3.5-5.1) mmol/L Chloride 100 (98-107) mmol/L Carbon Dioxide 34 H (21-32) mmol/L Anion Gap 5.0 (3-11) BUN 12 (7-18) mg/dl Creatinine 0.87 (0.6-1.2) mg/dl Est Cr Clr Drug Dosing 76.6 ml/min Est GFR ( Amer) 78.2 Est GFR (Non-Af Amer) 67.5 BUN/Creatinine Ratio 14.1 (10-20) Glucose 97 (70-99) mg/dl Calcium 9.0 (8.5-10.1) mg/dl Blood Type Antibody Screen Crossmatch 01/05/20 01/05/20 Range/Units 16:04 07:54 WBC (4.8-10.8) K/uL RBC (4.2-5.4) M/uL Hgb 8.0 L (12.0-16.0) g/dL Hct 27.3 L (37-47) % MCV (80-100) fL MCH (25-34) pg MCHC (32-36) g/dL RDW Std Deviation (36.4-46.3) fL RDW Coeff of Daniela (11.5-14.5) % Plt Count (130-400) K/uL MPV (7.4-10.4) fL PT (9.0-12.0) Seconds INR (0.9-1.1) Sodium (136-145) mmol/L Potassium (3.5-5.1) mmol/L Chloride (98-107) mmol/L Carbon Dioxide (21-32) mmol/L Anion Gap (3-11) BUN (7-18) mg/dl Creatinine (0.6-1.2) mg/dl Est Cr Clr Drug Dosing ml/min Est GFR ( Amer) Est GFR (Non-Af Amer) BUN/Creatinine Ratio (10-20) Glucose (70-99) mg/dl Calcium (8.5-10.1) mg/dl Blood Type B Positive Antibody Screen NEGATIVE Crossmatch See Detail Medications Administered Current Inpatient Medications Acetaminophen (Acetaminophen 325 Mg Tab) 650 mg PO Q4H PRN PRN Reason: pain/fever Stop: 02/01/20 02:36 Last Admin: 01/05/20 00:52 Dose: 650 mg Documented by: Albuterol (Albuterol Hfa 8 Gm Inhaler) 2 puffs INH Q4H PRN PRN Reason: Shortness Of Breath Or Wheezing Stop: 02/01/20 02:36 Albuterol (Albut/Ipratrop 3mg/0.5mg Neb 3 Ml Vial) 3 ml INH QID PRN PRN Reason: Shortness Of Breath Stop: 02/01/20 02:36 Clobetasol Propionate (Clobetasol Propionate 0.05% Oint 15 Gm Tube) 1 appln EXT BID PRN PRN Reason: Rash Stop: 02/01/20 02:48 Diphenhydramine HCl (Diphenhydramine Hcl 25 Mg Cap) 25 mg PO TID PRN PRN Reason: Itching Stop: 02/02/20 01:44 Last Admin: 01/05/20 21:08 Dose: 25 mg Documented by: Ferrous Sulfate (Ferrous Sulfate 325 Mg Tab) 325 mg PO DAILY [facility] Stop: 02/01/20 08:59 Last Admin: 01/06/20 08:52 Dose: 325 mg Documented by: Fluticasone Furoate (Fluticasone Furoate 100mcg 14 Puffs/Inhaler) 1 puffs INH DAILY [facility] Stop: 02/01/20 08:59 Last Admin: 01/06/20 08:49 Dose: 1 puffs Documented by: Fluticasone Propionate (Fluticasone Propionate Na Spr 16 Gm Btl) 2 sprays NA DAILY [facility] Stop: 02/01/20 08:59 Last Admin: 01/06/20 08:51 Dose: 2 sprays Documented by: Furosemide (Furosemide 20 Mg Tab) 20 mg PO DAILY [facility] Stop: 02/01/20 08:59 Last Admin: 01/06/20 08:52 Dose: 20 mg Documented by: Hydromorphone HCl (Hydromorphone Inj 0.5 Mg/0.5 Ml Syr) 0.5 mg IV Q3H PRN PRN Reason: Pain Stop: 01/16/20 02:36 Last Admin: 01/06/20 00:02 Dose: 0.5 mg Documented by: Lidocaine (Lidocaine 5% 1 Patch) 1 patch TD QAM [facility] Stop: 02/01/20 08:59 Last Admin: 01/05/20 09:48 Dose: 1 patch Documented by: Lorazepam (Lorazepam 0.5 Mg Tab) 0.5 mg PO BID PRN PRN Reason: Anxiety Stop: 02/01/20 02:36 Last Admin: 01/06/20 00:02 Dose: 0.5 mg Documented by: Lorazepam (Lorazepam 1 Mg Tab) 1 mg PO HS PRN PRN Reason: Insomnia Stop: 02/01/20 02:36 Last Admin: 01/03/20 21:00 Dose: 1 mg Documented by: Magnesium Oxide (Magnesium Oxide 400 Mg Tab) 400 mg PO BID [facility] Stop: 02/01/20 08:59 Last Admin: 01/06/20 08:50 Dose: 400 mg Documented by: Meclizine HCl (Meclizine Hcl 25 Mg Tab) 25 mg PO TID PRN PRN Reason: dizziness Stop: 02/01/20 02:45 Miscellaneous (Remove Lidoderm Patch) 1 ea N/A DAILY@2100 [facility] Stop: 02/01/20 20:59 Last Admin: 01/05/20 21:14 Dose: 1 ea Documented by: Multivitamins (Multivitamin Tab) 1 tab PO DAILY [facility] Stop: 02/01/20 08:59 Last Admin: 01/06/20 08:51 Dose: 1 tab Documented by: Multivitamins/Minerals (Calcium 600mg + Vit D 400 Iu Tab) 1 tab PO BID [facility] Stop: 02/01/20 08:59 Last Admin: 01/06/20 08:53 Dose: 1 tab Documented by: Ondansetron HCl (Ondansetron Inj 2 Mg/Ml 2 Ml Vial) 4 mg IV Q6H PRN PRN Reason: Nausea Stop: 02/01/20 02:36 Pantoprazole Sodium (Pantoprazole 40 Mg Tab) 40 mg PO QAM [facility] Stop: 02/01/20 08:59 Last Admin: 01/06/20 08:51 Dose: 40 mg Documented by: Polyethylene Glycol (Polyethylene (Miralax) 17 Gm Pack) 17 gm PO DAILY PRN PRN Reason: Constipation Stop: 02/01/20 02:36 Last Admin: 01/06/20 08:50 Dose: 17 gm Documented by: Potassium Chloride (Potassium Chloride 10 Meq Tabcr) 10 meq PO DAILY [facility] Stop: 02/01/20 08:59 Last Admin: 01/06/20 08:50 Dose: 10 meq Documented by: Sertraline HCl (Sertraline Hcl 50 Mg Tablet) 150 mg PO QAM [facility] Stop: 02/01/20 08:59 Last Admin: 01/06/20 08:52 Dose: 150 mg Documented by: Spironolactone (Spironolactone 25 Mg Tab) 25 mg PO DAILY [facility] Stop: 02/01/20 08:59 Last Admin: 01/06/20 08:52 Dose: 25 mg Documented by: Tramadol HCl (Tramadol Hcl 50 Mg Tablet) 50 mg PO Q6H PRN PRN Reason: Pain Stop: 02/01/20 02:36 Last Admin: 01/05/20 05:30 Dose: 50 mg Documented by: Umeclidinium/Vilanterol (Umeclidinium/Vilanterol 62.5/25mcg 7 Puffs/Inhaler) 1 puffs INH DAILY [facility] Stop: 02/01/20 08:59 Last Admin: 01/06/20 08:49 Dose: 1 puffs Documented by: (1) Hematoma of right hip Encounter type: initial encounter Qualified Code(s): S70.01XA - Contusion of right hip, initial encounter (2) CHF (congestive heart failure) Heart failure type: diastolic Heart failure chronicity: chronic Qualified Code(s): I50.32 - Chronic diastolic (congestive) heart failure (3) COPD (chronic obstructive pulmonary disease) COPD type: emphysema Emphysema type: unspecified Qualified Code(s): J43.9 - Emphysema, unspecified
[2020-01-06 08:11] LABS: Hematocrit (blood only) 28.5 % (37-47); Hemoglobin 8.3 g/dL (12.0-16.0); Mean Corpuscular Hemoglobin 24.6 pg (25-34); Mean Corpuscular Hgb Conc 29.1 g/dL (32-36); Mean Corpuscular Volume 84.3 fL (80-100); Mean Platelet Volume 9.8 fL (7.4-10.4); Platelet Count 189 K/uL (130-400); RDW Coefficient of Variation 18.5 % (11.5-14.5); Red Blood Count 3.38 M/uL (4.2-5.4); White Blood Count 5.24 K/uL (4.8-10.8)
[2020-01-06 08:35] LABS: Prothrombin Time 10.9 Seconds (9.0-12.0)
[2020-01-06 08:40] LABS: BUN Creatinine Ratio 14.1 (10-20); Creatinine Clr Calc Pharmacy 76.6 ml/min; Est GFR (African American) 78.2; Est GFR (Non-African American) 67.5; Potassium 3.8 mmol/L (3.5-5.1)
[2020-01-06] MEDS: FLUTICASONE FUROATE 100MCG 14 PUFFS/INHALER INH SCH (08:49)
[2020-01-06] MEDS: UMECLIDINIUM/VILANTEROL 62.5/25MCG 7 PUFFS/INHALER INH SCH (08:49)
[2020-01-06] MEDS: POTASSIUM CHLORIDE 10 MEQ TABCR PO SCH (08:50)
[2020-01-06] MEDS: MAGNESIUM OXIDE 400 MG TAB PO SCH ×2 (08:50→21:00)
[2020-01-06] MEDS: FLUTICASONE PROPIONATE NA SPR 16 GM BTL SCH (08:51)
[2020-01-06] MEDS: PANTOprazole 40 MG TAB PO SCH (08:51)
[2020-01-06] MEDS: MULTIVITAMIN TAB PO SCH (08:51)
[2020-01-06] MEDS: SERTRALINE HCL 50 MG TABLET PO SCH (08:52)
[2020-01-06] MEDS: FUROSEMIDE 20 MG TAB PO SCH (08:52)
[2020-01-06] MEDS: FERROUS SULFATE 325 MG TAB PO SCH (08:52)
[2020-01-06] MEDS: SPIRONOLACTONE 25 MG TAB PO SCH (08:52)
[2020-01-06] MEDS: CALCIUM 600MG + VIT D 400 IU TAB PO SCH ×2 (08:53→21:00)
[2020-01-06] MEDS: traMADol HCL 50 MG TABLET PO PRN ×3 (10:03→22:26)
[2020-01-06] MEDS: LIDOCAINE 5% 1 PATCH TD SCH (10:09)
[2020-01-06] MEDS: LORazepam 1 MG TAB PO PRN (22:26)
[2020-01-06] MEDS: diphenhydrAMINE Capsule 25 MG CAP PO PRN (22:26)
--- NOTE | 2020-01-07 07:42 | Hospitalist Progress Note ---
Date of Service January 07, 2020 Assessment & Plan (1) Hematoma of right hip: Admitted with spontaneous right gluteal hemorrhage on Coumadin The hematoma seems to be quite large and measures 13 x 12 x 10 cm Status post right total hip replacement in September, in [place] Complains of pain with any movement of the right lower extremity Hgb initially dropped to 9.4 from 10.7 on admission Appreciate orthopedic input and recommendation - recommend Conservative management -control INR, follow-up with patient's surgeon in [place] Hemoglobin has dropped to 8.4 from 10.7 on admission, then down to 7.2 - blood consent obtained, repeat H&H in the PM (01/03) Hgb 6.7 (01/04) -> transfused 1 unit of packed red blood cells Hgb 8.3 (01/05) Pain seems to be well controlled, using lidocaine patch and tramadol We will monitor hemoglobin PT and OT evaluation - pt to return home with HH Follow up w/ orthop. surgery scheduled for 01/10. Patient should also follow-up with PCP, and discuss with her healthcare providers when it is appropriate to restart warfarin (2) Pain due to total hip replacement: lidocaine patch applied, ice applied -tramadol prn (3) Atrial fibrillation: History of chronic atrial fibrillation status post pacemaker placement Has been on Coumadin, INR therapeutic at 2.5 INR elevated at 3.1 (01/02) - gave oral vitamin K since hemoglobin is dropped INR (01/03) 1.4 INR (01/04) 1.1 cont. to monitor (4) CKD (chronic kidney disease), stage III: Remains stable (5) CHF (congestive heart failure): No signs or symptoms of fluid overload and/or CHF (6) COPD (chronic obstructive pulmonary disease): No exacerbation Admission and Anticipated Discharge Date Admission Date: January 04, 2020 Subjective Pt is sitting up in bed, in NAD, currently denies any shortness of breath or chest pain. s/p blood transfusion 2 days ago, Hgb stable at above 8. Pt states she feels well. Worked with PT and discussed return home. Also discussed follow up with surgery. R hip pain currently well controlled. Review of Systems Review of Systems: All systems reviewed & are unremarkable except as noted in HPI & below All systems reviewed and are unremarkable except as noted below Constitutional: no fever and no chills Respiratory: no cough and no dyspnea Cardiovascular: no chest pain and no palpitations Gastrointestinal: no abdominal pain, no nausea and no vomiting Musculoskeletal: + joint pain (Right hip pain) and + swelling (Right lateral hip and gluteal area with tenderness) Physical Exam Physical Exam: Physical Exam: Elderly female sitting up in bed in NAD, on chronic O2 via [place] Constitutional: well developed, well nourished, NAD, + ill appearing + obese Eyes: PERRL, EOMI, conjunctivae normal, anicteric sclerae ENMT: external ear and nose normal, oropharynx normal Neck: trachea midline, no thyromegaly Respiratory: normal respiratory effort; no respiratory distress Auscultation: lungs clear to auscultation bilaterally, no wheezing, rhonchi, crackles Cardiovascular: Rate/Rhythm: regular rate and regular rhythm Heart Sounds: + soft murmur Gastrointestinal (Abdomen): Inspection/Auscultation: abdomen normal to inspection and normal bowel sounds; abdomen not distended Percussion/Palpation: abdomen soft Musculoskeletal: Tenderness involving the right hip joint and gluteal area Neurologic: moves all extremities; no focal motor deficits Alert, awake and oriented x3 Psychiatric: A+Ox3, euthymic affect Results & Data Results & Data ([facility]) Vital Signs (Past 12 Hours) Vital Signs Temp Pulse Resp BP Pulse Ox 01/06/20 23:38 36.8 C 78 18 167/85 H 98 Laboratory Results 01/07/20 01/07/20 01/07/20 Range/Units 07:47 07:47 07:47 Hgb 8.4 L (12.0-16.0) g/dL Hct 30.2 L (37-47) % PT 10.9 (9.0-12.0) Seconds INR 1.0 (0.9-1.1) Sodium 140 (136-145) mmol/L Potassium 3.7 (3.5-5.1) mmol/L Chloride 101 (98-107) mmol/L Carbon Dioxide 36 H (21-32) mmol/L Anion Gap 3.0 (3-11) BUN 14 (7-18) mg/dl Creatinine 0.92 (0.6-1.2) mg/dl Est Cr Clr Drug Dosing 72.4 ml/min Est GFR ( Amer) 73.1 Est GFR (Non-Af Amer) 63.1 BUN/Creatinine Ratio 14.6 (10-20) Glucose 96 (70-99) mg/dl Calcium 9.0 (8.5-10.1) mg/dl Medications Administered Current Inpatient Medications Acetaminophen (Acetaminophen 325 Mg Tab) 650 mg PO Q4H PRN PRN Reason: pain/fever Stop: 02/01/20 02:36 Last Admin: 01/05/20 00:52 Dose: 650 mg Documented by: Albuterol (Albuterol Hfa 8 Gm Inhaler) 2 puffs INH Q4H PRN PRN Reason: Shortness Of Breath Or Wheezing Stop: 02/01/20 02:36 Albuterol (Albut/Ipratrop 3mg/0.5mg Neb 3 Ml Vial) 3 ml INH QID PRN PRN Reason: Shortness Of Breath Stop: 02/01/20 02:36 Clobetasol Propionate (Clobetasol Propionate 0.05% Oint 15 Gm Tube) 1 appln EXT BID PRN PRN Reason: Rash Stop: 02/01/20 02:48 Diphenhydramine HCl (Diphenhydramine Hcl 25 Mg Cap) 25 mg PO TID PRN PRN Reason: Itching Stop: 02/02/20 01:44 Last Admin: 01/06/20 22:26 Dose: 25 mg Documented by: Ferrous Sulfate (Ferrous Sulfate 325 Mg Tab) 325 mg PO DAILY TERRANCE Stop: 02/01/20 08:59 Last Admin: 01/07/20 08:52 Dose: 325 mg Documented by: Fluticasone Furoate (Fluticasone Furoate 100mcg 14 Puffs/Inhaler) 1 puffs INH DAILY TERRANCE Stop: 02/01/20 08:59 Last Admin: 01/07/20 08:50 Dose: 1 puffs Documented by: Fluticasone Propionate (Fluticasone Propionate Na Spr 16 Gm Btl) 2 sprays NA DAILY TERRANCE Stop: 02/01/20 08:59 Last Admin: 01/07/20 08:49 Dose: 2 sprays Documented by: Furosemide (Furosemide 20 Mg Tab) 20 mg PO DAILY TERRANCE Stop: 02/01/20 08:59 Last Admin: 01/07/20 08:54 Dose: 20 mg Documented by: Hydromorphone HCl (Hydromorphone Inj 0.5 Mg/0.5 Ml Syr) 0.5 mg IV Q3H PRN PRN Reason: Pain Stop: 01/16/20 02:36 Last Admin: 01/06/20 00:02 Dose: 0.5 mg Documented by: Lidocaine (Lidocaine 5% 1 Patch) 1 patch TD QAM [facility] Stop: 02/01/20 08:59 Last Admin: 01/07/20 08:55 Dose: 1 patch Documented by: Lorazepam (Lorazepam 0.5 Mg Tab) 0.5 mg PO BID PRN PRN Reason: Anxiety Stop: 02/01/20 02:36 Last Admin: 01/06/20 00:02 Dose: 0.5 mg Documented by: Lorazepam (Lorazepam 1 Mg Tab) 1 mg PO HS PRN PRN Reason: Insomnia Stop: 02/01/20 02:36 Last Admin: 01/06/20 22:26 Dose: 1 mg Documented by: Magnesium Oxide (Magnesium Oxide 400 Mg Tab) 400 mg PO BID [facility] Stop: 02/01/20 08:59 Last Admin: 01/07/20 08:51 Dose: 400 mg Documented by: Meclizine HCl (Meclizine Hcl 25 Mg Tab) 25 mg PO TID PRN PRN Reason: dizziness Stop: 02/01/20 02:45 Miscellaneous (Remove Lidoderm Patch) 1 ea N/A DAILY@2100 [facility] Stop: 02/01/20 20:59 Last Admin: 01/06/20 21:01 Dose: 1 ea Documented by: Multivitamins (Multivitamin Tab) 1 tab PO DAILY [facility] Stop: 02/01/20 08:59 Last Admin: 01/07/20 08:52 Dose: 1 tab Documented by: Multivitamins/Minerals (Calcium 600mg + Vit D 400 Iu Tab) 1 tab PO BID [facility] Stop: 02/01/20 08:59 Last Admin: 01/07/20 08:51 Dose: 1 tab Documented by: Ondansetron HCl (Ondansetron Inj 2 Mg/Ml 2 Ml Vial) 4 mg IV Q6H PRN PRN Reason: Nausea Stop: 02/01/20 02:36 Pantoprazole Sodium (Pantoprazole 40 Mg Tab) 40 mg PO QAM [facility] Stop: 02/01/20 08:59 Last Admin: 01/07/20 08:54 Dose: 40 mg Documented by: Polyethylene Glycol (Polyethylene (Miralax) 17 Gm Pack) 17 gm PO DAILY PRN PRN Reason: Constipation Stop: 02/01/20 02:36 Last Admin: 01/06/20 08:50 Dose: 17 gm Documented by: Potassium Chloride (Potassium Chloride 10 Meq Tabcr) 10 meq PO DAILY TERRANCE Stop: 02/01/20 08:59 Last Admin: 01/07/20 08:53 Dose: 10 meq Documented by: Potassium Chloride (Potassium Chloride 20 Meq Tabcr) 20 meq PO NOW STA Stop: 01/07/20 09:27 Sertraline HCl (Sertraline Hcl 50 Mg Tablet) 150 mg PO QAM [place] Stop: 02/01/20 08:59 Last Admin: 01/07/20 08:54 Dose: 150 mg Documented by: Spironolactone (Spironolactone 25 Mg Tab) 25 mg PO DAILY [facility] Stop: 02/01/20 08:59 Last Admin: 01/07/20 08:52 Dose: 25 mg Documented by: Tramadol HCl (Tramadol Hcl 50 Mg Tablet) 50 mg PO Q6H PRN PRN Reason: Pain Stop: 02/01/20 02:36 Last Admin: 01/06/20 22:26 Dose: 50 mg Documented by: Umeclidinium/Vilanterol (Umeclidinium/Vilanterol 62.5/25mcg 7 Puffs/Inhaler) 1 puffs INH DAILY [facility] Stop: 02/01/20 08:59 Last Admin: 01/07/20 08:50 Dose: 1 puffs Documented by: (1) Hematoma of right hip Encounter type: initial encounter Qualified Code(s): S70.01XA - Contusion of right hip, initial encounter (2) CHF (congestive heart failure) Heart failure type: diastolic Heart failure chronicity: chronic Qualified Code(s): I50.32 - Chronic diastolic (congestive) heart failure (3) COPD (chronic obstructive pulmonary disease) COPD type: emphysema Emphysema type: unspecified Qualified Code(s): J43.9 - Emphysema, unspecified
[2020-01-07 08:15] LABS: Prothrombin Time 10.9 Seconds (9.0-12.0)
[2020-01-07 08:41] LABS: Hematocrit (blood only) 30.2 % (37-47); Hemoglobin 8.4 g/dL (12.0-16.0)
[2020-01-07 08:43] LABS: BUN Creatinine Ratio 14.6 (10-20); Creatinine Clr Calc Pharmacy 72.4 ml/min; Est GFR (African American) 73.1; Est GFR (Non-African American) 63.1; Potassium 3.7 mmol/L (3.5-5.1)
[2020-01-07] MEDS: FLUTICASONE PROPIONATE NA SPR 16 GM BTL SCH (08:49)
[2020-01-07] MEDS: UMECLIDINIUM/VILANTEROL 62.5/25MCG 7 PUFFS/INHALER INH SCH (08:50)
[2020-01-07] MEDS: FLUTICASONE FUROATE 100MCG 14 PUFFS/INHALER INH SCH (08:50)
[2020-01-07] MEDS: MAGNESIUM OXIDE 400 MG TAB PO SCH (08:51)
[2020-01-07] MEDS: CALCIUM 600MG + VIT D 400 IU TAB PO SCH (08:51)
[2020-01-07] MEDS: FERROUS SULFATE 325 MG TAB PO SCH (08:52)
[2020-01-07] MEDS: MULTIVITAMIN TAB PO SCH (08:52)
[2020-01-07] MEDS: SPIRONOLACTONE 25 MG TAB PO SCH (08:52)
[2020-01-07] MEDS: POTASSIUM CHLORIDE 10 MEQ TABCR PO SCH (08:53)
[2020-01-07] MEDS: FUROSEMIDE 20 MG TAB PO SCH (08:54)
[2020-01-07] MEDS: SERTRALINE HCL 50 MG TABLET PO SCH (08:54)
[2020-01-07] MEDS: PANTOprazole 40 MG TAB PO SCH (08:54)
[2020-01-07] MEDS: LIDOCAINE 5% 1 PATCH TD SCH (08:55)
[2020-01-07] MEDS ORDERED: POTASSIUM CHLORIDE 20 MEQ TABCR PO ONE (10:00)
--- NOTE | 2020-01-07 12:16 | Discharge Summary ---
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 Lives alone, friends help her. Today, she was in the bathroom when she had severe pain in the right hip region. She could not put weight on the leg, which prompted her to come to the ER. Denies any injury, denies any bending down or lifting heavy weights. In the ER, imaging studies showed large right hip hematoma. With pain medication, pain is under control currently. Denies any other complaints. No chest pain, no shortness of breath, no cough, no fever, no chills, no headache, no blurred visions, no earache, no runny nose, no sore throat, no dysphagia, no nausea, no abdominal pain. Normal bowel and bladder movements. Currently resting comfortably and hemodynamically stable. Admission Exam Per Admitting Provider GENERAL: The patient is of moderate built, not in acute distress. VITAL SIGNS: Temperature 37.1, pulse 72, respiratory rate 18, blood pressure 124/67, oxygen 100% on 3 liters. HEENT: No pallor, no icterus. Pupils equal, round, and reactive to light. NECK: No JVD, no neck masses. CARDIOVASCULAR: S1, S2 heard, regular rate and rhythm, no murmur, no gallop. RESPIRATORY SYSTEM: Normal AP diameter. No accessory muscle use. No wheezing, no crackles. ABDOMEN: Soft, bowel sounds present, nontender. No distention. CENTRAL NERVOUS SYSTEM: Cranial nerves II-XII grossly intact, nonfocal. EXTREMITIES: Painful right hip movements. No swelling of the extremities seen. Principal Diagnosis Right hip pain due to Right hip hematoma History of A. fib, on anticoagulation with Coumadin Discharge Exam Physical Exam: Elderly female sitting up in bed in [facility], on chronic O2 via [place] Constitutional: well developed, well nourished, NAD, + ill appearing + obese Eyes: PERRL, EOMI, conjunctivae normal, anicteric sclerae ENMT: external ear and nose normal, oropharynx normal Neck: trachea midline, no thyromegaly Respiratory: normal respiratory effort; no respiratory distress Auscultation: lungs clear to auscultation bilaterally, no wheezing, rhonchi, crackles Cardiovascular: Rate/Rhythm: regular rate and regular rhythm Heart Sounds: + soft murmur Gastrointestinal (Abdomen): Inspection/Auscultation: abdomen normal to inspection and normal bowel sounds; abdomen not distended Percussion/Palpation: abdomen soft Musculoskeletal: Tenderness involving the right hip joint and gluteal area Neurologic: moves all extremities; no focal motor deficits Alert, awake and oriented x3 Psychiatric: A+Ox3, euthymic affect Discharge Data Allergies Allergy/AdvReac Type Severity Reaction Status Date / Time Penicillins Allergy Severe SWELLING Verified 01/01/20 20:00 OF TONGUE AND THROAT Consultations 01/01/20 22:03 ED Decision to Admit Stat 01/02/20 02:37 Consult Case Management - Discharge Planning Routine 01/02/20 08:00 Consult Orthopedic Surgery Routine Ordered Studies 01/01/20 19:43 CT abd pelvis IV con only Urgent IMPRESSION: 1. 13 cm right gluteal mass, likely representing a hematoma 2. No evidence of bowel obstruction. No evidence of free air 3. Diverticulosis. No evidence of acute diverticulitis 4. 12 mm groundglass opacity within the right lower lobe. A six-month follow-up CT scan is recommended per Fleischner criteria. CT hip RT wo con Urgent IMPRESSION: 1. No fracture is identified involving the right hip. Note that the examination is significantly degraded by streak artifact from a right hip arthroplasty. 2. There is a large hematoma identified around the right hip centered in the gluteal musculature as detailed above. Hospital Course (1) Hematoma of right hip: Admitted with spontaneous right gluteal hemorrhage on Coumadin The hematoma seems to be quite large and measures 13 x 12 x 10 cm Status post right total hip replacement in September, in [place] Complains of pain with any movement of the right lower extremity Hgb initially dropped to 9.4 from 10.7 on admission Appreciate orthopedic input and recommendation - recommend Conservative management -control INR, follow-up with patient's surgeon in [place] Hemoglobin has dropped to 8.4 from 10.7 on admission, then down to 7.2 - blood consent obtained, repeat H&H in the PM (01/03) Hgb 6.7 (01/04) -> transfused 1 unit of packed red blood cells Hgb 8.3 (01/05) Pain seems to be well controlled, using lidocaine patch and tramadol We will monitor hemoglobin PT and OT evaluation - pt to return home with HH Follow up w/ orthop. surgery scheduled for 01/10. Patient should also follow-up with PCP, and discuss with her healthcare providers when it is appropriate to restart warfarin (2) Pain due to total hip replacement: lidocaine patch applied, ice applied -tramadol prn (3) Atrial fibrillation: History of chronic atrial fibrillation status post pacemaker placement Has been on Coumadin, INR therapeutic at 2.5 INR elevated at 3.1 (01/02) - gave oral vitamin K since hemoglobin is dropped INR (01/03) 1.4 INR (01/04) 1.1 cont. to monitor (4) CKD (chronic kidney disease), stage III: Remains stable (5) CHF (congestive heart failure): No signs or symptoms of fluid overload and/or CHF (6) COPD (chronic obstructive pulmonary disease): No exacerbation 12 mm groundglass opacity identified on CT within the right lower lobe Recommended six-month follow-up CT per Fleischner criteria Total Time Total Time Spent Total Time Spent (In Minutes): 40 Total Time Includes: Examination of the Patient, Discharge Planning, Medication Reconciliation and Communication With Other Providers Discharge Plan Discharge Items Patient Disposition: Home - Home Health Services Reason For Visit: RIGHT HIP PAIN Discharge Diagnosis: Right hip pain due to Right hip hematoma History of A. fib, on anticoagulation with Coumadin Activity: Per Instructions section Non-emergency contact: Primary Care Provider and Surgeon Call non-emergency contact if: you have any medication questions and your symptoms worsen Follow-up/Referrals: Alvin Colon DO [Primary Care Provider] - (01/11/2020 2:20 PM Provider Alvin Colon DO Department Family Practice [facility] ) Tyshawn Roberts MD [Outside Practitioners] - (Date & Time 01/11/2020 12:45 PM Provider [facility] Diet: Heart Healthy Addtl Attending Provider Instructions: Follow-up with your orthopedic surgeon, on January 10. The appointment was scheduled for you. For pain, continue to use lidocaine patch, and tramadol as needed for more severe pain. You can also use Tylenol up to 3000 mg a day. You will need to follow-up with your primary care doctor within a week or two. Discuss with your health care providers if/ when it is safe to restart warfarin. Pending Studies at Discharge: No Stand-Alone Forms: My [facility] [employer], Smoking Cessation Medications and DC Order Prescriptions: New lidocaine 5 % Adhesive Patch,Medicated 1 patch transdermal QAM 15 Days Qty: 15 RF: 0 tramadol 50 mg Tablet 50 mg PO Q6H PRN (Reason: pain) Qty: 14 RF: 0 acetaminophen 325 mg Tablet 650 mg PO Q4H PRN (Reason: pain) Qty: 14 RF: 0 Continued ipratropium-albuterol 0.5 mg-3 mg(2.5 mg base)/3 mL Solution For Nebulization 3 ml INHALATION QID PRN (Reason: Shortness Of Breath) RF: 0 fluticasone propionate [Flonase Allergy Relief] 50 mcg/actuation [place],Suspension 2 spray INTRANASAL DAILY RF: 0 Trelegy Ellipta 100-62.5-25 mcg Blister With Device 1 inh INHALATION DAILY RF: 0 spironolactone [Aldactone] 25 mg Tablet 25 mg PO DAILY RF: 0 furosemide 20 mg Tablet 20 mg PO DAILY RF: 0 potassium chloride 10 mEq Capsule, Extended Release 10 meq PO DAILY RF: 0 ferrous sulfate 325 mg (65 mg iron) Tablet 325 mg PO DAILY RF: 0 multivitamin Tablet 1 tab PO DAILY RF: 0 desonide 0.05 % Cream 1 applic TOPICAL BID PRN (Reason: Rash) RF: 0 hydrocortisone valerate 0.2 % Cream 1 applic TOPICAL BID RF: 0 sertraline 100 mg Tablet 1.5 tab PO QAM RF: 0 clobetasol [Temovate] 0.05 % Cream 1 applic TOPICAL BID PRN (Reason: Rash) RF: 0 tramadol 50 mg Tablet 50 mg PO Q6H PRN (Reason: Pain) RF: 0 lorazepam [Ativan] 0.5 mg Tablet 0.5 mg PO BID PRN (Reason: Anxiety) RF: 0 lorazepam [Ativan] 0.5 mg Tablet 1 mg PO HS PRN (Reason: Insomnia) RF: 0 pantoprazole [Protonix] 40 mg Tablet,Delayed Release (Dr/Ec) 40 mg PO QAM RF: 0 triamcinolone acetonide 0.1 % Ointment 1 applic topical DAILY PRN (Reason: Rash) RF: 0 fluocinonide 0.05 % Solution 1 applic topical DAILY PRN (Reason: Itching) RF: 0 albuterol sulfate [Ventolin HFA] 90 mcg/actuation Hfa Aerosol Inhaler 2 puff INHALATION Q4H PRN (Reason: Shortness Of Breath Or Wheezing) RF: 0 Calcium 600 + D(3) 600 mg calcium- 200 unit Capsule 1 tab PO BID RF: 0 magnesium oxide 400 mg Capsule 400 mg PO BID RF: 0 meclizine 25 mg tablet 25 mg PO TID PRN (Reason: dizziness) RF: 0 Discontinued warfarin 5 mg Tablet 5 mg PO [id number] RF: 0 warfarin [Coumadin] 5 mg Tablet 2.5 mg PO WK RF: 0 Discharge Orders: Discharge Order (Routine); Ordered 01/07/20 Ordered By: Luke Schneider Admission Data Admit Date/Time: 01/04/20 10:04 Attending Provider: Luke Schneider Admit Provider: Armani Bates Primary Care Provider: Alvin Colon Other Providers: Armani Bates ; Seymour Diana ; [facility] ; Cipriano Carlton
== END 2020-01-07 14:42 | disposition home health service (06) | DRG 556 ==
LOC: ED 18:43 → 3N 18:43 → SUATTDRO 01-02 01:39 → 3N 01-02 02:04

== ENCOUNTER 2020-01-27 19:28 | Inpatient (IN) ==
--- NOTE | 2020-01-27 20:01 | Emergency Department Note ---
Impression & Plan Acute neck pain, COPD (chronic obstructive pulmonary disease), COVID-19, O2 dependent ED Provider Note NAME: EUGENIO LIM AGE: 69 SEX: F ARRIVES VIA: Ambulance INFORMANT: Patient, ED PROVIDER(S): Fransisco Shen MD CHIEF COMPLAINT: Neck pain PLAN: Disposition: Admit MEDICAL DECISION MAKING: The patient is a pleasant 69-year-old woman with a past medical history of COPD on home oxygen, hyperlipidemia, A. fib on Coumadin, history of AV node ablation status post biventricular pacemaker, ambulatory dysfunction, depression, CKD, d iastolic CHF, pulmonary hypertension, GERD, recent admission from 01/03-01/06 for continuous right gluteal hemorrhage on Coumadin with large hematoma and associated anemia requiring transfusion, recent diagnosis of COVID-19 with positive test on 01/17 who presents emerged department complaining of neck pain which she noticed when she first awoke this morning. She denies any associated dizziness/vertigo or nausea. She denies any vision changes. She reports her chronic cough is her usual denies chest pain. She denies any fevers, nausea, vomiting, diarrhea or urinary symptoms. Specifically, she denies any loss of bowel control or urinary retention. Of note, per EMS the patient had felt she has been having a decline in her functional status at home over the past week and did attempt to get accepted to [facility] however was declined as she had a positive COVID-19 test on 01/17. On arrival the patient is chronically ill-appearing but no acute distress, afebrile stable vital signs. She does have mild discomfort of bilateral paraspinal muscles of the neck with range of motion limited secondary to her pain. She has no extremity weakness. Reflexes within normal limits. There is no clonus. EKG is paced without overt acute ischemia. Chest x-ray negative for acute process. WBC within normal limits. H/H 11.4/38.8 improved from prior values. Platelets within normal limits. INR is 1.5, subtherapeutic after reinitiating her Coumadin recently after her recent hematoma. Chemistry without acidosis. Electrolytes and LFTs unremarkable. Troponin negative/undetectable. The patient's COVID-19 PCR test was positive today. Given the patient has no symptoms to suggest cord compression his neck pain is unlikely to represent this. Moreover given she has not had any falls unlikely to represent any acute bony abnormality. Symptoms are suggestive of wry neck/torticollis which may have occurred with poor positioning when sleeping overnight. Unfortunately, due to the patient's pacemaker we are unable to obtain MRI, though again cord compression is unlikely. Additionally she does not exhibit any symptoms to suggest any vascular abnormality and so CTA was deferred in setting of the patient's CKD. Fortunately given the patient's medical comorbidities in the setting of her report that she is unable to function at home where she lives alone unable to proceed with discharge and outpatient management this time. She is agreeable with placement however we are unable to obtain this from the emergency department and she will require admission for PT/OT and placement. Patient is agreeable to this. Case was [facility], who will evaluate the patient for admission. Triage Nursing notes reviewed and agree them. Prior medical records reviewed Vital Signs: reviewed and remarkable for no significant abnormalities Differential diagnosis: Cervical strain, fracture, cervical disc disease, lymphadenitis, meningitis, tumor, arterial dissection, thyroiditis, parotitis, mastoiditis, neurologic, cardiovascular, as well as other pathologies. ER treatment provided: See below. Diagnostics interpreted by me: ECG: Ventricular paced rhythm, 70 bpm, no ectopy, no overt acute ischemia. Cardiac Monitoring: An order for continuous cardiac monitoring was placed and demonstrated Ventricular paced rhythm, 70 bpm, no ectopy. Laboratory studies: See below Imaging studies: XR chest 1V portable HISTORY: 69 years-old Female Chest Pain acute atypical chest pain COMPARISON: Chest CT 10/12/2019 TECHNIQUE: Portable AP view of the chest FINDINGS: Cardiac megaly. Calcified plaque of the thoracic aortic arch. Mild emphysema. Left subclavian pacer. No pneumothorax, pleural effusion or overt pulmonary edema. Mild subsegmental bibasilar atelectasis/scarring of the lung bases. Degenerative changes of the shoulders and spine. IMPRESSION: Emphysema without acute process. Consultation(s): [facility] who will evaluate the patient for admission. HPI: The patient is a pleasant 69-year-old woman with a past medical history of COPD on home oxygen, hyperlipidemia, A. fib on Coumadin, history of AV node ablation status post biventricular pacemaker, ambulatory dysfunction, depression, CKD, diastolic CHF, pulmonary hypertension, GERD, recent admission from 01/03-01/06 for continuous right gluteal hemorrhage on Coumadin with large hematoma and associated anemia requiring transfusion, recent diagnosis of COVID- 19 with positive test on 01/17 who presents emerged department complaining of neck pain which she noticed when she first awoke this morning. She denies any associated dizziness/vertigo or nausea. She denies any vision changes. She reports her chronic cough is her usual denies chest pain. She denies any fever s, nausea, vomiting, diarrhea or urinary symptoms. Specifically, she denies any loss of bowel control or urinary retention. Of note, per EMS the patient had felt she has been having a decline in her functional status at home over the past week and did attempt to get accepted to [facility] however was declined as she had a positive COVID-19 test on 01/17. ROS: See above HPI for pertinent positives & negatives. A total of 10 systems reviewed and were otherwise negative. PAST MEDICAL HISTORY:See Below PAST SURGICAL HISTORY:See Below FAMILY HISTORY:See Below SOCIAL HISTORY:See Below HOME MEDICATIONS:See Below ALLERGIES:See Below VITALS:See Below PHYSICAL EXAMINATION: GENERAL: Awake, alert, chronically ill-appearing, in no distress HENT: Normocephalic, atraumatic. Oropharynx unremarkable. EYES: Normal conjunctiva. Sclera non-icteric. NECK: Mild bilateral paraspinal muscle discomfort without discrete tenderness. Range of motion limited secondary to pain. No bruits. RESPIRATORY: Clear to auscultation. CARDIAC: Regular rate, normal rhythm. Extremities warm and well perfused. Pulses equal. ABDOMEN: Soft, non-distended. No tenderness to palpation. No rebound or guarding. No masses. RECTAL: Deferred. MUSCULOSKELETAL: Chest examination reveals no tenderness. The back is symmetrical on inspection without obvious abnormality. There is no CVA tendernes s to palpation. No joint edema. LOWER EXTREMITIES: Calves are equal size bilaterally and non-tender. No edema. No discoloration. NEURO: Normal sensorium. No sensory or motor deficits noted. 5/5 strength and SILT x 4 extremities. Reflexes within normal limits. No clonus. SKIN: No rash or jaundice noted. Fransisco Shen MD Past Med/Surg History Medical History Anxiety Atrial fibrillation CHF (congestive heart failure) DIASTOLIC Chronic respiratory failure CKD (chronic kidney disease) STAGE III COPD (chronic obstructive pulmonary disease) "SEVERE" ON 3-4L CONTINUOUS Depression GERD (gastroesophageal reflux disease) Obesity Osteoarthritis Paroxysmal atrial fibrillation PFO (patent foramen ovale) Psoriasis Pulmonary nodules Raynauds syndrome Urinary incontinence Surgical History H/O foot surgery LEFT FOOT SURGERY History of cataract surgery RT/LEFT History of colonoscopy History of hysterectomy History of tonsillectomy History of tooth extraction Social History Smoking Status: Former smoker Smoking End Date: 1996; Second Hand Exposure: No; Hx Alcohol Use: Yes Alcohol type: wine Hx Substance Use: No Preferred Language: Belarusian Communication Ability: Effective Visual Impairment: No Limitations Curator Required: No Beliefs That Will Affect Care: None Current Living Situation: Alone Current Living Situation Comment: LIVES ALONE [facility] APARTMENT>[place] Other Information That Helps Us Care for You: No Feels Safe at Home: Yes Safety Concerns: Feels Safe At This Time Assistive Devices: Cane, Denture - Upper, Denture - Lower and Glasses Allergies Allergies Allergy/AdvReac Type Severity Reaction Status Date / Time Penicillins Allergy Severe SWELLING Verified 01/27/20 20:52 OF TONGUE AND THROAT Home Meds Home Medications Medication Instructions Recorded Confirmed Calcium 600 + D(3) 1 tab PO BID 03/29/18 01/27/20 albuterol sulfate [Ventolin HFA] 2 puff INHALATION Q4H PRN 03/29/18 01/27/20 clobetasol [Temovate] 1 applic TOPICAL BID PRN 03/29/18 01/27/20 desonide 1 applic TOPICAL BID PRN 03/29/18 01/27/20 fluocinonide 1 applic TOPICAL DAILY PRN 03/29/18 01/27/20 hydrocortisone valerate 1 applic TOPICAL BID 03/29/18 01/27/20 lorazepam [Ativan] 0.5 mg PO BID PRN 03/29/18 01/27/20 lorazepam [Ativan] 1 mg PO HS PRN 03/29/18 01/27/20 magnesium oxide 400 mg PO BID 03/29/18 01/27/20 multivitamin 1 tab PO DAILY 03/29/18 01/27/20 pantoprazole [Protonix] 40 mg PO QAM 03/29/18 01/27/20 sertraline 1.5 tab PO QAM 03/29/18 01/27/20 triamcinolone acetonide 1 applic TOPICAL DAILY PRN 03/29/18 01/27/20 meclizine 25 mg PO TID PRN 07/06/18 01/27/20 Trelegy Ellipta 1 inh INHALATION DAILY 08/17/18 01/27/20 fluticasone propionate [Flonase 2 spray INTRANASAL DAILY 08/17/18 01/27/20 Allergy Relief] ipratropium-albuterol 3 ml INHALATION QID PRN 08/17/18 01/27/20 furosemide 20 mg PO DAILY 01/01/20 01/27/20 spironolactone [Aldactone] 25 mg PO DAILY 01/01/20 01/27/20 ferrous sulfate 325 mg PO DAILY 01/02/20 01/27/20 potassium chloride 10 meq PO DAILY 01/02/20 01/27/20 warfarin [Coumadin] 5 mg PO DIRECTED 01/27/20 01/27/20 Previous Rx's Medication Instructions Recorded acetaminophen 650 mg PO Q4H PRN #14 tab 01/07/20 tramadol 50 mg PO Q6H PRN #14 tab 01/07/20 Results & Data (ED) Vital Signs Vital Signs - 24 hr 01/27/20 19:36 01/27/20 19:39 01/27/20 19:40 Pulse Rate 71 71 71 Pulse Rate from SpO2 Sensor 71 71 71 Respiratory Rate 18 23 19 Blood Pressure 176/76 H Blood Pressure Mean 102 Pulse Oximetry 94 92 98 Oxygen Delivery Method Oxygen Flow Rate Sepsis Recent Fever Within 48 Hours Sepsis New/Unexplained Change in Mental Status Sepsis Action Taken by Nursing 01/27/20 19:50 01/27/20 20:00 01/27/20 20:10 Pulse Rate 71 71 70 Pulse Rate from SpO2 Sensor 71 72 71 Respiratory Rate 16 25 H 19 Blood Pressure 144/69 H Blood Pressure Mean 86 Pulse Oximetry 100 100 100 Oxygen Delivery Method Oxygen Flow Rate Sepsis Recent Fever Within 48 Hours Yes Sepsis New/Unexplained Change in Mental Status No Sepsis Action Taken by Nursing No Action Required 01/27/20 20:20 01/27/20 20:30 01/27/20 20:40 Pulse Rate 70 71 71 Pulse Rate from SpO2 Sensor 70 70 72 Respiratory Rate 23 22 20 Blood Pressure 148/67 H Blood Pressure Mean 91 Pulse Oximetry 100 100 100 Oxygen Delivery Method Oxygen Flow Rate Sepsis Recent Fever Within 48 Hours Sepsis New/Unexplained Change in Mental Status Sepsis Action Taken by Nursing 01/27/20 20:42 01/27/20 20:50 01/27/20 21:00 Pulse Rate 70 71 Pulse Rate from SpO2 Sensor 70 Respiratory Rate 22 16 Blood Pressure 149/68 H Blood Pressure Mean 83 Pulse Oximetry 98 99 Oxygen Delivery Method Nasal Cannula Oxygen Flow Rate 3 Sepsis Recent Fever Within 48 Hours Sepsis New/Unexplained Change in Mental Status Sepsis Action Taken by Nursing 01/27/20 21:10 01/27/20 21:20 01/27/20 21:30 Pulse Rate 70 70 70 Pulse Rate from SpO2 Sensor Respiratory Rate 22 23 21 Blood Pressure 141/69 H Blood Pressure Mean 96 Pulse Oximetry Oxygen Delivery Method Oxygen Flow Rate Sepsis Recent Fever Within 48 Hours Sepsis New/Unexplained Change in Mental Status Sepsis Action Taken by Nursing 01/27/20 21:40 01/27/20 21:50 01/27/20 22:00 Pulse Rate 70 70 70 Pulse Rate from SpO2 Sensor 70 69 70 Respiratory Rate 20 21 23 Blood Pressure 138/73 Blood Pressure Mean 91 Pulse Oximetry 100 100 99 Oxygen Delivery Method Oxygen Flow Rate Sepsis Recent Fever Within 48 Hours Sepsis New/Unexplained Change in Mental Status Sepsis Action Taken by Nursing 01/27/20 22:10 01/27/20 22:20 01/27/20 22:30 Pulse Rate 70 70 70 Pulse Rate from SpO2 Sensor 70 70 70 Respiratory Rate 25 H 24 23 Blood Pressure 141/57 H Blood Pressure Mean 79 Pulse Oximetry 100 98 99 Oxygen Delivery Method Oxygen Flow Rate Sepsis Recent Fever Within 48 Hours Sepsis New/Unexplained Change in Mental Status Sepsis Action Taken by Nursing Laboratory Data Attestation: I reviewed the patient's lab results. Result diagrams: 01/27/20 19:55 01/27/20 19:55 Lab Results 01/27/20 01/27/20 01/27/20 Range/Units 19:47 19:47 19:55 WBC 9.32 (4.8-10.8) K/uL RBC 4.65 (4.2-5.4) M/uL Hgb 11.4 L (12.0-16.0) g/dL Hct 38.8 (37-47) % MCV 83.4 (80-100) fL MCH 24.5 L (25-34) pg MCHC 29.4 L (32-36) g/dL RDW Std Deviation 58.7 H (36.4-46.3) fL RDW Coeff of Daniela 19.3 H (11.5-14.5) % Plt Count 194 (130-400) K/uL MPV 10.3 (7.4-10.4) fL Immature Gran % (Auto) 0.4 % Neut % (Auto) 84.0 % Lymph % (Auto) 5.2 % Forrest % (Auto) 10.1 % Eos % (Auto) 0.2 % Baso % (Auto) 0.1 % Neut # (Auto) 7.83 H (1.4-6.5) K/uL Lymph # (Auto) 0.48 L (1.2-3.4) K/uL Forrest # (Auto) 0.94 H (0.11-0.59) K/uL Eos # (Auto) 0.02 (0-0.5) K/uL Baso # (Auto) 0.01 (0-0.2) K/uL Immature Gran # (Auto) 0.04 H (0.00-0.02) K/uL PT (9.0-12.0) Seconds INR (0.9-1.1) APTT (21.0-31.0) Seconds PTT Ratio Sodium (136-145) mmol/L Potassium (3.5-5.1) mmol/L Chloride (98-107) mmol/L Carbon Dioxide (21-32) mmol/L Anion Gap (3-11) BUN (7-18) mg/dl Creatinine (0.6-1.2) mg/dl Est Cr Clr Drug Dosing Est GFR ( Amer) Est GFR (Non-Af Amer) BUN/Creatinine Ratio (10-20) Glucose (70-99) mg/dl Calcium (8.5-10.1) mg/dl Phosphorus (2.5-4.9) mg/dl Magnesium (1.8-2.4) mg/dl Total Bilirubin (0.2-1) mg/dl AST (15-37) U/L ALT (12-78) U/L Alkaline Phosphatase (45-117) U/L Troponin I (0-0.045) ng/ml Total Protein (6.4-8.2) gm/dl Albumin (3.4-5.0) gm/dl Globulin (2.5-4.0) gm/dl Albumin/Globulin Ratio (0.9-2) Lipase (73-393) U/L Specimen Hemolysis COVID-19 Eval Order Covid19 Done at [facility] COVID-19 PCR POSITIVE A* (Negative) 01/27/20 01/27/20 Range/Units 19:55 19:55 WBC (4.8-10.8) K/uL RBC (4.2-5.4) M/uL Hgb (12.0-16.0) g/dL Hct (37-47) % MCV (80-100) fL MCH (25-34) pg MCHC (32-36) g/dL RDW Std Deviation (36.4-46.3) fL RDW Coeff of Daniela (11.5-14.5) % Plt Count (130-400) K/uL MPV (7.4-10.4) fL Immature Gran % (Auto) % Neut % (Auto) % Lymph % (Auto) % Forrest % (Auto) % Eos % (Auto) % Baso % (Auto) % Neut # (Auto) (1.4-6.5) K/uL Lymph # (Auto) (1.2-3.4) K/uL Forrest # (Auto) (0.11-0.59) K/uL Eos # (Auto) (0-0.5) K/uL Baso # (Auto) (0-0.2) K/uL Immature Gran # (Auto) (0.00-0.02) K/uL PT 15.1 H (9.0-12.0) Seconds INR 1.5 H (0.9-1.1) APTT 36.5 H (21.0-31.0) Seconds PTT Ratio 1.3 Sodium 139 (136-145) mmol/L Potassium 4.0 (3.5-5.1) mmol/L Chloride 105 (98-107) mmol/L Carbon Dioxide 31 (21-32) mmol/L Anion Gap 3.0 (3-11) BUN 10 (7-18) mg/dl Creatinine 0.91 (0.6-1.2) mg/dl Est Cr Clr Drug Dosing Not Reportable Est GFR ( Amer) 74.1 Est GFR (Non-Af Amer) 63.9 BUN/Creatinine Ratio 11.3 (10-20) Glucose 109 H (70-99) mg/dl Calcium 8.7 (8.5-10.1) mg/dl Phosphorus 2.9 (2.5-4.9) mg/dl Magnesium 1.9 (1.8-2.4) mg/dl Total Bilirubin 0.4 (0.2-1) mg/dl AST 21 (15-37) U/L ALT 27 (12-78) U/L Alkaline Phosphatase 132 H (45-117) U/L Troponin I < 0.015 (0-0.045) ng/ml Total Protein 7.0 (6.4-8.2) gm/dl Albumin 3.3 L (3.4-5.0) gm/dl Globulin 3.7 (2.5-4.0) gm/dl Albumin/Globulin Ratio 0.9 (0.9-2) Lipase 83 (73-393) U/L Specimen Hemolysis COVID-19 Eval Order COVID-19 PCR (Negative) Administered Medications Discontinued Medications Dexamethasone (Dexamethasone Sod Inj 10 Mg/Ml Vial) 10 mg IV NOW ONE Stop: 01/27/20 20:40 Last Admin: 01/27/20 22:02 Dose: 10 mg Documented by: [id number] Diazepam (Diazepam 2 Mg Tablet) 2 mg PO NOW ONE Stop: 01/27/20 20:40 Last Admin: 01/27/20 22:02 Dose: 2 mg Documented by: [id number] Acetaminophen (Ofirmev) 1,000 mg in 100 mls @ 400 mls/hr IV NOW STA Stop: 01/27/20 20:53 Last Infusion: 01/27/20 22:23 Dose: 0 mls/hr Documented by: [id number] Admin: 01/27/20 22:02 Dose: 400 mls/hr Documented by: [id number] Discharge Plan Visit Data Chief Complaint: Neck Injury/Pain Stated Complaint: NECK PAIN ED Provider: Fransisco Shen Discharge Problem: Acute neck pain, COPD (chronic obstructive pulmonary disease), COVID-19, O2 dependent Discharge Instructions Interventions: ED Discharge Assessment Last Done: 01/28/20 00:10 Discharge Problem: COPD (chronic obstructive pulmonary disease) Qualifiers: COPD type: unspecified COPD Qualified Code(s): J44.9 - Chronic obstructive pulm onary disease, unspecified
[2020-01-27] MEDS ORDERED: ACETAMINOPHEN 1,000 MG/100 ML VIAL IV STA (20:39)
[2020-01-27] MEDS ORDERED: DEXAMETHASONE SOD INJ 10 MG/ML VIAL IV ONE (20:39)
[2020-01-27] MEDS ORDERED: diazePAM 2 MG TABLET PO ONE (20:39)
--- NOTE | 2020-01-27 21:16 | XRay Report ---
XR chest 1V portable HISTORY: 69 years-old Female Chest Pain acute atypical chest pain COMPARISON: Chest CT 10/12/2019 TECHNIQUE: Portable AP view of the chest FINDINGS: Cardiac megaly. Calcified plaque of the thoracic aortic arch. Mild emphysema. Left subclavian pacer. No pneumothorax, pleural effusion or overt pulmonary edema. Mild subsegmental bibasilar atelectasis/s carring of the lung bases. Degenerative changes of the shoulders and spine. IMPRESSION: Emphysema without acute process. ACT 112: Negative or not required by law. The above report was generated using voice recognition software. It may contain grammatical, syntax o r spelling errors. Electronically signed by: Maximilian Vora M.D. 01/27/2020 9:14 PM
[2020-01-27 21:28] LABS: INR 1.5 (0.9-1.1); Partial Thromboplastin Ratio 1.3; Partial Thromboplastin Time 36.5 Seconds (21.0-31.0); Prothrombin Time 15.1 Seconds (9.0-12.0)
[2020-01-27 21:33] LABS: Basophils # (auto) 0.01 K/uL (0-0.2); Basophils % (auto) 0.1 %; Eosinophils # (auto) 0.02 K/uL (0-0.5); Eosinophils % (auto) 0.2 %; Hematocrit (blood only) 38.8 % (37-47); Hemoglobin 11.4 g/dL (12.0-16.0); Immature Granulocytes # (auto) 0.04 K/uL (0.00-0.02); Immature Granulocytes % (auto) 0.4 %; Lymphocytes # (auto) 0.48 K/uL (1.2-3.4); Lymphocytes % (auto) 5.2 %; Mean Corpuscular Hemoglobin 24.5 pg (25-34); Mean Corpuscular Hgb Conc 29.4 g/dL (32-36); Mean Corpuscular Volume 83.4 fL (80-100); Mean Platelet Volume 10.3 fL (7.4-10.4); Monocytes # (auto) 0.94 K/uL (0.11-0.59); Monocytes % (auto) 10.1 %; Neutrophils # (auto) 7.83 K/uL (1.4-6.5); Platelet Count 194 K/uL (130-400); RDW Coefficient of Variation 19.3 % (11.5-14.5); RDW Standard Deviation 58.7 fL (36.4-46.3); Red Blood Count 4.65 M/uL (4.2-5.4); White Blood Count 9.32 K/uL (4.8-10.8)
[2020-01-27 21:41] LABS: Alanine Aminotransferase 27 U/L (12-78); Albumin Level 3.3 gm/dl (3.4-5.0); Aspartate Aminotransferase 21 U/L (15-37); BUN Creatinine Ratio 11.3 (10-20); Blood Urea Nitrogen 10 mg/dl (7-18); Calcium 8.7 mg/dl (8.5-10.1); Carbon Dioxide 31 mmol/L (21-32); Chloride 105 mmol/L (98-107); Est GFR (African American) 74.1; Est GFR (Non-African American) 63.9; Glucose 109 mg/dl (70-99); Lipase 83 U/L (73-393); Magnesium 1.9 mg/dl (1.8-2.4); Sodium 139 mmol/L (136-145)
[2020-01-27 21:45] LABS: Albumin Globulin Ratio 0.9 (0.9-2); Alkaline Phosphatase 132 U/L (45-117); Bilirubin,Total 0.4 mg/dl (0.2-1); Globulin 3.7 gm/dl (2.5-4.0); Phosphorus 2.9 mg/dl (2.5-4.9); Troponin I < 0.015 ng/ml (0-0.045)
[2020-01-28] MEDS ORDERED: WARFARIN SOD 5 MG TAB PO ONE (00:43)
[2020-01-28] MEDS ORDERED: NITROGLYCERIN SL 0.4 MG/TAB TAB SL PRN (00:43)
[2020-01-28] MEDS ORDERED: ONDANSETRON INJ 2 MG/ML 2 ML VIAL IV PRN (00:43)
[2020-01-28] MEDS ORDERED: ALBUT/IPRATROP 3MG/0.5MG NEB 3 ML VIAL INH PRN (00:43)
[2020-01-28] MEDS ORDERED: DESONIDE CR 15 GM TUBE EXT PRN (00:43)
[2020-01-28] MEDS ORDERED: POLYETHYLENE (MIRALAX) 17 GM PACK PO PRN (00:43)
[2020-01-28] MEDS ORDERED: TRIAMCINOLONE ACET 0.1% OINT 15 GM TUBE TOP PRN (00:43)
[2020-01-28] MEDS ORDERED: NON-FORMULARY MEDICATION (Fluocinonide 0.05 % Solution) TOP PRN (00:43)
[2020-01-28] MEDS ORDERED: ALBUTEROL HFA 8 GM INHALER INH PRN (00:43)
[2020-01-28] MEDS ORDERED: MECLIZINE HCL 25 MG TAB PO PRN (01:04)
[2020-01-28] MEDS ORDERED: CLOBETASOL PROPIONATE 0.05% OINT 15 GM TUBE EXT PRN (01:09)
[2020-01-28] MEDS: traMADol HCL 50 MG TABLET PO PRN ×3 (01:16→18:40)
[2020-01-28] MEDS: HYDROmorphone INJ 0.5 MG/0.5 ML SYR IV PRN (05:29)
[2020-01-28 06:18] LABS: Hematocrit (blood only) 36.6 % (37-47); Hemoglobin 10.7 g/dL (12.0-16.0); Immature Granulocytes # (auto) 0.02 K/uL (0.00-0.02); Immature Granulocytes % (auto) 0.2 %; Lymphocytes # (auto) 0.33 K/uL (1.2-3.4); Lymphocytes % (auto) 4.1 %; Mean Corpuscular Hemoglobin 24.6 pg (25-34); Mean Corpuscular Hgb Conc 29.2 g/dL (32-36); Mean Corpuscular Volume 84.1 fL (80-100); Mean Platelet Volume 10.1 fL (7.4-10.4); Monocytes # (auto) 0.91 K/uL (0.11-0.59); Monocytes % (auto) 11.2 %; Neutrophils # (auto) 6.83 K/uL (1.4-6.5); Neutrophils % (auto) 84.5 %; Platelet Count 188 K/uL (130-400); RDW Coefficient of Variation 18.8 % (11.5-14.5); RDW Standard Deviation 58.7 fL (36.4-46.3); Red Blood Count 4.35 M/uL (4.2-5.4); White Blood Count 8.09 K/uL (4.8-10.8)
[2020-01-28 06:30] LABS: INR 2.5 (0.9-1.1); Prothrombin Time 25.1 Seconds (9.0-12.0)
--- NOTE | 2020-01-28 06:30 | History and Physical Report ---
DATE OF ADMISSION: 01/27/2020 CHIEF COMPLAINT: Severe neck pain, recent COVID positive. HISTORY OF PRESENT ILLNESS: A 69-year-old female with past medical history significant for COPD, history of pulmonary nodules, history of chronic respiratory failure, on home oxygen 3 liters, hyperlipidemia, history of atrial fibrillation, atrial multifocal tachycardia, patent foramen ovale, history of status post atrioventricular node ablation, status post biventricular pacemaker, ambulatory dysfunction, depression, chronic kidney disease stage III, diastolic CHF, pulmonary hypertension, GERD, aseptic necrosis of both hips, status post bilateral hip replacement, recently had right hip replacement done in August in [place], history of meningioma, history of low vitamin B12, psoriasis, depression, and anxiety. The patient lives alone. Recently, she was in the hospital with right hip pain and found to have right hip hematoma. She received 1 unit of PRBC blood transfusion. She was seen by ortho and discharged to follow with her orthopedics and Coumadin was held. She received oral vitamin K during that admission. She recently restarted back on Coumadin. After getting discharged from the hospital on 01/07/2020 around she was not feeling well. She was having fever and she was tested positive for COVID on 01/17/2020 and she was doing okay at home, but today she woke up with severe neck pain, it was not getting better, which prompted her to come to the ER. In the ER, her hemodynamics are stable. Labs showed no leukocytosis, lymphopenia present. INR was 1.5. Troponin negative. Repeat COVID-19 PCR positive. Chest x-ray, no acute findings. There was a plan also for her to go to [facility], but because of COVID this is held currently. The patient received Decadron in the ER and currently pain is improved. She is resting comfortably and hemodynamically stable. Denies any chest pain. Denies any shortness of breath. She has a chronic cough, nothing unusual. She is saturating fine on 3 liters, which is her baseline. Denies any chest pain. No headache, no blurred vision, no earache, no runny nose, no sore throat. Denies any loss of sense of smell or taste. Appetite is okay. No dysphagia. Normal bowel and bladder movements. No swelling in the legs, no rash seen. ALLERGIES: PENICILLIN G. PAST MEDICAL HISTORY: As mentioned above. PAST SURGICAL HISTORY: Dental surgery, foot surgery in childhood for deformity, revision of the foot surgery on the left side, tonsillectomy, adenoidectomy, bilateral hip replacement, total hysterectomy. MEDICATIONS: The patient is currently on Tylenol 650 mg p.o. q. 4 hours p.r.n., albuterol 2 puffs inhalation q. 4 hours p.r.n., calcium plus vitamin D 1 tablet b.i.d., clobetasol one application topically b.i.d. p.r.n., ferrous sulfate 325 mg p.o. daily, Flonase 2 sprays intranasal daily, Lasix 20 mg p.o. daily, hydrocortisone application topically b.i.d., DuoNebs 3 mL inhalation q.i.d. p.r.n., Ativan 0.5 mg p.o. daily p.r.n., Ativan 1 mg p.o. at bedtime p.r.n., magnesium oxide 400 mg p.o. b.i.d., meclizine 25 mg p.o. t.i.d. p.r.n., multivitamins 1 tablet p.o. daily, Protonix 40 mg p.o. a.m., potassium chloride 20 mEq p.o. daily, sertraline 150 mg p.o. daily, tramadol 50 mg p.o. at bedtime p.r.n., Trelegy Ellipta 1 inhalation daily, Coumadin 5 mg as directed. FAMILY HISTORY: Significant for sister has arthritis, father has emphysema, mother had heart disorder and emphysema, paternal grandfather has heart disorder; maternal grandmother had heart disorder. SOCIAL HISTORY: Currently living alone. Former smoker, quit in 1996, smoked 1 pack a day for 20 years. Alcohol, 1-2 glasses of wine per day. No drug use. REVIEW OF SYSTEMS: As per HPI. Rest of the review of systems negative. PHYSICAL EXAMINATION: GENERAL: The patient is of moderate build, not in acute distress. VITAL SIGNS: Temperature 36.8, pulse 74, respiratory rate 22, blood pressure 128/65, oxygen 96% on 3 liters. HEENT: Pupils equal, round, and reactive to light. Oral mucosa moist. NECK: No JVD, no neck masses. Neck is supple. Flexion and extension of the neck, was able to flex, and extension of neck is okay. CARDIOVASCULAR: S1, S2 heard. Regular rate and rhythm, no murmur, no gallop. RESPIRATORY SYSTEM: Normal AP diameter. No accessory muscle use. No wheezing, no crackles. ABDOMEN: Soft, bowel sounds present, nontender. No distention. CENTRAL NERVOUS SYSTEM: Cranial nerves II through XII grossly intact, nonfocal. EXTREMITIES: No edema, no erythema. LABORATORY DATA: WBC 9.3, hemoglobin 11.4, hematocrit 38.8, platelets 184. PT 10.1, INR 1.5, APTT 36.5. Sodium 139, potassium 4, chloride 105, bicarbonate 31, BUN 10, creatinine 0.9, serum glucose 109, calcium 8.7, phosphorus 2.9, magnesium 1.9, total bilirubin 0.4, AST 21, ALT 27, alkaline phosphatase 132. Troponin I less than 0.015. Lipase 83. COVID-19 PCR positive. IMAGING DATA: Chest x-ray, no acute findings. EKG: Ventricular paced rhythm at a rate of 70, no significant change was found. ASSESSMENT AND PLAN: This is a 69-year-old female who was recently diagnosed as COVID positive, who presents with neck pain. 1. Neck pain, could be musculoskeletal, could be torticollis. Currently pain is improved. May need physical therapy and if anything concerning, we will get a CAT scan of the neck. We will continue to monitor. 2. Recent diagnosis of COVID. Currently saturating fine on 3 liters, which is her baseline. No cough, no fever. Chest x-ray is okay. We will continue to monitor. 3. History of chronic respiratory failure and chronic obstructive pulmonary disease. Continue her home inhalers and nebs, currently stable. 4. History of atrial fibrillation, history of status post atrioventricular node ablation, status post biventricular pacemaker. Currently rate is under control. Recently Coumadin was held, but was restarted . INR is 1.5. Will continue Coumadin. Follow the PT/INR. 5. Chronic diastolic congestive heart failure, pulmonary hypertension. Will continue her current medication. Monitor for any volume overload. 6. History of depression and anxiety. Continue her current medications. 7. History of gastroesophageal reflux disease. Continue PPI. 8. Deep venous thrombosis prophylaxis. INR is 1.5, Lovenox until INR is therapeutic. DISPOSITION: Admit to med tele. PT and OT prior to discharge. Social service to help with discharge planning. The patient may need rehab placement. LATA
[2020-01-28 06:51] LABS: BUN Creatinine Ratio 14.7 (10-20); Calcium 8.4 mg/dl (8.5-10.1); Creatinine Clr Calc Pharmacy 72.6 ml/min; Est GFR (African American) 75.1; Est GFR (Non-African American) 64.8; Potassium 4.2 mmol/L (3.5-5.1)
--- NOTE | 2020-01-28 08:09 | Electrocardiogram Report ---
Test Reason : Blood Pressure : / mmHG Vent. Rate : 070 BPM Atrial Rate : 070 BPM P-R Int : 000 ms QRS Dur : 160 ms QT Int : 440 ms P-R-T Axes : 000 265 072 degrees QTc Int : 475 ms Ventricular-paced rhythm Atrial flutter Abnormal ECG When compared with ECG of 01-JAN-2020 22:15, No significant change was found Confirmed by Gokul Lim ([id number]) on 01/28/2020 8:09:26 AM Referred By: REFERRED SELF Confirmed By:Gokul Lim
[2020-01-28] MEDS ORDERED: ENOXAPARIN INJ 40 MG/0.4 ML SYR SQ SCH (09:00)
[2020-01-28] MEDS: ACETAMINOPHEN 325 MG TAB PO PRN ×2 (09:05→18:41)
[2020-01-28] MEDS: FLUTICASONE FUROATE 100MCG 14 PUFFS/INHALER INH SCH (09:06)
[2020-01-28] MEDS: UMECLIDINIUM/VILANTEROL 62.5/25MCG 7 PUFFS/INHALER INH SCH (09:06)
[2020-01-28] MEDS: FLUTICASONE PROPIONATE NA SPR 16 GM BTL SCH (09:08)
[2020-01-28] MEDS: SPIRONOLACTONE 25 MG TAB PO SCH (09:10)
[2020-01-28] MEDS: FUROSEMIDE 20 MG TAB PO SCH (09:10)
[2020-01-28] MEDS: PANTOprazole 40 MG TAB PO SCH (09:10)
[2020-01-28] MEDS: MULTIVITAMIN TAB PO SCH (09:10)
[2020-01-28] MEDS: MAGNESIUM OXIDE 400 MG TAB PO SCH ×2 (09:10→20:18)
[2020-01-28] MEDS: SERTRALINE HCL 50 MG TABLET PO SCH (09:10)
[2020-01-28] MEDS: CALCIUM 600MG + VIT D 400 IU TAB PO SCH ×2 (09:11→20:17)
[2020-01-28] MEDS: POTASSIUM CHLORIDE 10 MEQ TABCR PO SCH (09:11)
[2020-01-28] MEDS: HYDROCORTISONE VAL 0.2% CRM 15GM TUBE EXT SCH ×2 (09:12→20:09)
[2020-01-28] MEDS: FERROUS SULFATE 325 MG TAB PO SCH (09:12)
[2020-01-28] MEDS: LORazepam 0.5 MG TAB PO PRN (09:13)
[2020-01-28] MEDS: WARFARIN SOD 5 MG TAB PO SCH (17:07)
--- NOTE | 2020-01-28 17:59 | Hospitalist Progress Note ---
Date of Service January 28, 2020 Assessment & Plan (1) Acute neck pain: ASSESSMENT AND PLAN: This is a 69-year-old female who was recently diagnosed as COVID positive, who presents with neck pain. . Neck pain, symptoms much improved - musculoskeletal pain , ordered for Flexeril , cold compression as need PT/OT eval no evidence of radiculopathy, CT neck /cervical spine not indicated COVID 19 positive : symptomatic no cough or SOB , no fever or chills on 3 L 02 her baseline comfortable Cxray no infiltrate cont standard isolation precaution History of chronic respiratory failure and chronic obstructive pulmonary disease. History of atrial fibrillation, history of status post atrioventricular node ablation, status post biventricular pacemaker. on coumadin INR threaputic Admission and Anticipated Discharge Date Admission Date: January 27, 2020 Subjective no complain of SOB no cough , no fever or chills neck pain has improved some what still does not have full range of motion no radiation of pain to shoulders or upper arms Review of Systems Review of Systems: All systems reviewed & are unremarkable except as noted in HPI & below Physical Exam Constitutional: WD/WN, vitals as above Eyes: + anicteric sclerae ENMT: external ear and nose normal, oropharynx normal Neck: trachea midline, no thyromegaly tenderness on post muscle of neck some improvement after repeatation of movement no numbness or paresthesia Respiratory: normal respiratory effort, lungs clear to auscultation Cardiovascular: RRR, no murmur, no edema Gastrointestinal (Abdomen): normal bowel sounds, soft, nontender, no hepatosplenomegaly Musculoskeletal: no cyanosis or clubbing, extremities motor strength 5/5 Skin: no rashes, warm and dry Neurologic: PERRL, EOMI, accommodation nl, no face palsy, no dysarthria Psychiatric: A+Ox3, euthymic affect Results & Data Results & Data ([facility]) Vital Signs (Past 12 Hours) Vital Signs Temp Pulse Pulse Resp BP Pulse Ox 01/28/20 16:00 36.6 C 71 16 115/71 99 01/28/20 11:50 36.7 C 70 16 115/70 97 01/28/20 08:19 36.7 C 70 18 124/71 97 01/28/20 07:40 71
[2020-01-28] MEDS: CYCLOBENZAPRINE HCL 5 MG TAB PO SCH (20:09)
[2020-01-28] MEDS: oxyCODONE/ACETAMINOPHEN 5mg/325mg TAB PO PRN (23:55)
[2020-01-29 06:44] LABS: INR 2.3 (0.9-1.1); Prothrombin Time 23.5 Seconds (9.0-12.0)
[2020-01-29] MEDS: UMECLIDINIUM/VILANTEROL 62.5/25MCG 7 PUFFS/INHALER INH SCH (09:03)
[2020-01-29] MEDS: FLUTICASONE FUROATE 100MCG 14 PUFFS/INHALER INH SCH (09:03)
[2020-01-29] MEDS: PANTOprazole 40 MG TAB PO SCH (09:06)
[2020-01-29] MEDS: POTASSIUM CHLORIDE 10 MEQ TABCR PO SCH (09:06)
[2020-01-29] MEDS: FERROUS SULFATE 325 MG TAB PO SCH (09:06)
[2020-01-29] MEDS: FLUTICASONE PROPIONATE NA SPR 16 GM BTL SCH (09:06)
[2020-01-29] MEDS: CYCLOBENZAPRINE HCL 5 MG TAB PO SCH ×2 (09:06→21:43)
[2020-01-29] MEDS: MAGNESIUM OXIDE 400 MG TAB PO SCH ×2 (09:06→21:43)
[2020-01-29] MEDS: CALCIUM 600MG + VIT D 400 IU TAB PO SCH ×2 (09:06→21:43)
[2020-01-29] MEDS: MULTIVITAMIN TAB PO SCH (09:06)
[2020-01-29] MEDS: SPIRONOLACTONE 25 MG TAB PO SCH (09:06)
[2020-01-29] MEDS: SERTRALINE HCL 50 MG TABLET PO SCH (09:07)
[2020-01-29] MEDS: HYDROCORTISONE VAL 0.2% CRM 15GM TUBE EXT SCH ×2 (09:08→21:43)
[2020-01-29] MEDS: FUROSEMIDE 20 MG TAB PO SCH (09:08)
--- NOTE | 2020-01-29 15:58 | Hospitalist Progress Note ---
Date of Service January 29, 2020 Assessment & Plan (1) Acute neck pain: . . Neck pain, symptoms much improved - musculoskeletal pain , ordered for Flexeril , cold compression as need PT/OT eval no evidence of radiculopathy, CT neck /cervical spine not indicated COVID 19 positive : symptomatic no cough or SOB , no fever or chills on 3 L 02 her baseline comfortable Cxray no infiltrate cont standard isolation precaution History of chronic respiratory failure and chronic obstructive pulmonary disease. stable, no cough or sob on chronic 3 L 02 at home History of atrial fibrillation, history of status post atrioventricular node ablation, status post biventricular pacemaker. on coumadin INR threaputic DISPOSITION : lives in assisted living follow PT/OT eval expected to be discharged to assisted living in next 1-2 days Admission and Anticipated Discharge Date Admission Date: January 27, 2020 Subjective neck pain better no fever or chills no cough or SOB , offers no new complain Physical Exam Constitutional: WD/WN, vitals as above Eyes: + anicteric sclerae ENMT: external ear and nose normal, oropharynx normal Neck: trachea midline, no thyromegaly Respiratory: normal respiratory effort, lungs clear to auscultation Cardiovascular: RRR, no murmur, no edema Gastrointestinal (Abdomen): normal bowel sounds, soft, nontender, no hepatospl enomegaly Musculoskeletal: no cyanosis or clubbing, extremities motor strength 5/5 Skin: no rashes, warm and dry Neurologic: PERRL, EOMI, accommodation nl, no face palsy, no dysarthria Psychiatric: A+Ox3, euthymic affect Results & Data Results & Data ([facility]) Vital Signs (Past 12 Hours) Vital Signs Temp Pulse Resp BP Pulse Ox 01/29/20 15:33 37.0 C 70 16 103/67 98 01/29/20 11:53 36.6 C 83 16 137/79 97 01/29/20 07:47 36.7 C 82 18 146/79 H 92
[2020-01-29] MEDS: WARFARIN SOD 5 MG TAB PO SCH (16:12)
[2020-01-29] MEDS: oxyCODONE/ACETAMINOPHEN 5mg/325mg TAB PO PRN (16:12)
[2020-01-29] MEDS: HYDROmorphone INJ 0.5 MG/0.5 ML SYR IV PRN (21:41)
[2020-01-30] MEDS: oxyCODONE/ACETAMINOPHEN 5mg/325mg TAB PO PRN ×2 (02:44→21:29)
[2020-01-30] MEDS: LORazepam 0.5 MG TAB PO PRN ×2 (02:44→21:29)
[2020-01-30 06:20] LABS: INR 2.3 (0.9-1.1); Prothrombin Time 23.1 Seconds (9.0-12.0)
[2020-01-30] MEDS: CALCIUM 600MG + VIT D 400 IU TAB PO SCH ×2 (09:17→21:30)
[2020-01-30] MEDS: CYCLOBENZAPRINE HCL 5 MG TAB PO SCH ×2 (09:17→21:30)
[2020-01-30] MEDS: MAGNESIUM OXIDE 400 MG TAB PO SCH ×2 (09:17→21:30)
[2020-01-30] MEDS: FUROSEMIDE 20 MG TAB PO SCH (09:18)
[2020-01-30] MEDS: SPIRONOLACTONE 25 MG TAB PO SCH (09:18)
[2020-01-30] MEDS: UMECLIDINIUM/VILANTEROL 62.5/25MCG 7 PUFFS/INHALER INH SCH (09:18)
[2020-01-30] MEDS: SERTRALINE HCL 50 MG TABLET PO SCH (09:18)
[2020-01-30] MEDS: POTASSIUM CHLORIDE 10 MEQ TABCR PO SCH (09:18)
[2020-01-30] MEDS: MULTIVITAMIN TAB PO SCH (09:19)
[2020-01-30] MEDS: FERROUS SULFATE 325 MG TAB PO SCH (09:19)
[2020-01-30] MEDS: FLUTICASONE PROPIONATE NA SPR 16 GM BTL SCH (09:19)
[2020-01-30] MEDS: FLUTICASONE FUROATE 100MCG 14 PUFFS/INHALER INH SCH (09:19)
[2020-01-30] MEDS: PANTOprazole 40 MG TAB PO SCH (09:20)
[2020-01-30] MEDS: HYDROCORTISONE VAL 0.2% CRM 15GM TUBE EXT SCH ×2 (09:21→21:30)
[2020-01-30] MEDS: WARFARIN SOD 5 MG TAB PO SCH (17:23)
--- NOTE | 2020-01-30 18:05 | Hospitalist Progress Note ---
Date of Service January 30, 2020 Assessment & Plan (1) Acute neck pain: . . Neck pain, symptoms much improved -due musculoskeletal pain , ordered for Flexeril , cold compression as need PT/OT eval no evidence of radiculopathy, CT neck /cervical spine not indicated pt will benefit with skilled rehab COVID 19 positive : symptomatic no cough or SOB , no fever or chills on 3 L 02 her baseline comfortable Cxray no infiltrate cont standard isolation precaution repeat COVID 19 test on 01/30/20 : positive History of chronic respiratory failure and chronic obstructive pulmonary disease. stable, no cough or sob on chronic 3 L 02 at home History of atrial fibrillation, history of status post atrioventricular node ablation, status post biventricular pacemaker. on coumadin INR threaputic DISPOSITION : lives alone in jail apartment at [facility] PT/OT eval requested will benefit with rehab referral made to [facility] Admission and Anticipated Discharge Date Admission Date: January 27, 2020 Subjective neck pain has improved offers no new complain no worsening of SOB ( baseline on 3 L 02 ) no fever or chills , no cough COVID 19 test positive today 01/30/20 Physical Exam Constitutional: WD/WN, vitals as above Eyes: + anicteric sclerae ENMT: external ear and nose normal, oropharynx normal Neck: trachea midline, no thyromegaly Respiratory: normal respiratory effort, lungs clear to auscultation Cardiovascular: RRR, no murmur, no edema Gastrointestinal (Abdomen): normal bowel sounds, soft, nontender, no hepato splenomegaly Musculoskeletal: no cyanosis or clubbing, extremities motor strength 5/5 Skin: no rashes, warm and dry Neurologic: PERRL, EOMI, accommodation nl, no face palsy, no dysarthria Psychiatric: A+Ox3, euthymic affect Results & Data Results & Data ([facility]) Vital Signs (Past 12 Hours) Vital Signs Temp Pulse Resp BP Pulse Ox Pulse Ox 01/30/20 15:41 37.1 C 70 20 122/78 98 01/30/20 14:11 97 01/30/20 08:00 37 C 80 18 142/77 H 92
[2020-01-31 06:40] LABS: INR 2.2 (0.9-1.1); Prothrombin Time 22.7 Seconds (9.0-12.0)
[2020-01-31] MEDS: FERROUS SULFATE 325 MG TAB PO SCH (08:40)
[2020-01-31] MEDS: PANTOprazole 40 MG TAB PO SCH (08:40)
[2020-01-31] MEDS: MULTIVITAMIN TAB PO SCH (08:40)
[2020-01-31] MEDS: CYCLOBENZAPRINE HCL 5 MG TAB PO SCH ×2 (08:40→20:56)
[2020-01-31] MEDS: MAGNESIUM OXIDE 400 MG TAB PO SCH ×2 (08:40→20:56)
[2020-01-31] MEDS: CALCIUM 600MG + VIT D 400 IU TAB PO SCH ×2 (08:40→20:56)
[2020-01-31] MEDS: SERTRALINE HCL 50 MG TABLET PO SCH (08:40)
[2020-01-31] MEDS: SPIRONOLACTONE 25 MG TAB PO SCH (08:40)
[2020-01-31] MEDS: FUROSEMIDE 20 MG TAB PO SCH (08:40)
[2020-01-31] MEDS: FLUTICASONE FUROATE 100MCG 14 PUFFS/INHALER INH SCH (08:41)
[2020-01-31] MEDS: POTASSIUM CHLORIDE 10 MEQ TABCR PO SCH (08:41)
[2020-01-31] MEDS: UMECLIDINIUM/VILANTEROL 62.5/25MCG 7 PUFFS/INHALER INH SCH (08:41)
[2020-01-31] MEDS: FLUTICASONE PROPIONATE NA SPR 16 GM BTL SCH (08:41)
[2020-01-31] MEDS: HYDROCORTISONE VAL 0.2% CRM 15GM TUBE EXT SCH ×2 (08:42→20:58)
[2020-01-31] MEDS: oxyCODONE/ACETAMINOPHEN 5mg/325mg TAB PO PRN ×2 (08:48→21:04)
[2020-01-31] MEDS: WARFARIN SOD 5 MG TAB PO SCH (15:54)
[2020-01-31] MEDS: LORazepam 0.5 MG TAB PO PRN (21:04)
[2020-02-01 06:32] LABS: INR 2.5 (0.9-1.1); Prothrombin Time 24.7 Seconds (9.0-12.0)
--- NOTE | 2020-02-01 07:31 | Hospitalist Progress Note ---
Date of Service February 01, 2020 Assessment & Plan (1) Acute neck pain: . . Neck pain, symptoms much improved -due musculoskeletal pain , ordered for Flexeril , cold compression as need PT/OT eval no evidence of radiculopathy, CT neck /cervical spine not indicated pt will benefit with skilled rehab COVID 19 positive : symptomatic no cough or SOB , no fever or chills on 3 L 02 her baseline comfortable Cxray no infiltrate cont standard isolation precaution repeat COVID 19 test on 01/30/20 : positive History of chronic respiratory failure and chronic obstructive pulmonary disease. stable, no cough or sob on chronic 3 L 02 at home History of atrial fibrillation, history of status post atrioventricular node ablation, status post biventricular pacemaker. on coumadin INR threaputic DISPOSITION : lives alone in [facility] apartment at [facility] PT/OT eval requested will benefit with rehab referral made to [facility] COVID 19 test positive on 01/31/20 waiting for SNF at [facility] needs negative Covid 19 test to be transferred Admission and Anticipated Discharge Date Admission Date: January 27, 2020 Subjective late entry for 01/31/20 neck pain has improved offers no new complain no worsening of SOB ( baseline on 3 L 02 ) no fever or chills , no cough Physical Exam Constitutional: WD/WN, vitals as above Eyes: + anicteric sclerae ENMT: external ear and nose normal, oropharynx normal Neck: trachea midline, no thyromegaly Respiratory: normal respiratory effort, lungs clear to auscultation Cardiovascular: RRR, no murmur, no edema Gastrointestinal (Abdomen): normal bowel sounds, soft, nontender, no hepatosplenomegaly Musculoskeletal: no cyanosis or clubbing, extremities motor strength 5/5 Skin: no rashes, warm and dry Neurologic: PERRL, EOMI, accommodation nl, no face palsy, no dysarthria Psychiatric: A+Ox3, euthymic affect Results & Data Results & Data ([facility]) Vital Signs (Past 12 Hours) Vital Signs Temp Pulse Resp BP Pulse Ox 02/01/20 01:00 37.2 C 72 18 121/72 98
[2020-02-01] MEDS: UMECLIDINIUM/VILANTEROL 62.5/25MCG 7 PUFFS/INHALER INH SCH (07:52)
[2020-02-01] MEDS: FLUTICASONE FUROATE 100MCG 14 PUFFS/INHALER INH SCH (07:53)
[2020-02-01] MEDS: MULTIVITAMIN TAB PO SCH (07:54)
[2020-02-01] MEDS: POTASSIUM CHLORIDE 10 MEQ TABCR PO SCH (07:55)
[2020-02-01] MEDS: FERROUS SULFATE 325 MG TAB PO SCH (07:55)
[2020-02-01] MEDS: CYCLOBENZAPRINE HCL 5 MG TAB PO SCH ×2 (07:55→20:35)
[2020-02-01] MEDS: PANTOprazole 40 MG TAB PO SCH (07:55)
[2020-02-01] MEDS: SPIRONOLACTONE 25 MG TAB PO SCH (07:55)
[2020-02-01] MEDS: FUROSEMIDE 20 MG TAB PO SCH (07:55)
[2020-02-01] MEDS: FLUTICASONE PROPIONATE NA SPR 16 GM BTL SCH (07:56)
[2020-02-01] MEDS: SERTRALINE HCL 50 MG TABLET PO SCH (07:56)
[2020-02-01] MEDS: CALCIUM 600MG + VIT D 400 IU TAB PO SCH ×2 (07:56→20:36)
[2020-02-01] MEDS: HYDROCORTISONE VAL 0.2% CRM 15GM TUBE EXT SCH ×2 (07:58→20:36)
[2020-02-01] MEDS: MAGNESIUM OXIDE 400 MG TAB PO SCH ×2 (10:26→20:35)
[2020-02-01] MEDS: oxyCODONE/ACETAMINOPHEN 5mg/325mg TAB PO PRN ×2 (10:26→20:36)
[2020-02-01] MEDS: WARFARIN SOD 5 MG TAB PO SCH (17:36)
--- NOTE | 2020-02-01 19:51 | Hospitalist Progress Note ---
Date of Service February 01, 2020 Assessment & Plan (1) COVID-19: (1) Acute neck pain: Neck pain likely secondary to Musculoskeletal pain -- improving -- no evidence of radiculopathy, CT neck /cervical spine not indicated -- pt will benefit with skilled rehab COVID 19 Positive -- no cough or SOB , no fever or chills on 3 L 02 her baseline comfortable CXR: no infiltrate -- continue standard isolation precaution repeat COVID 19 test on 01/30/20 : positive -- repeat COVID 19 test: positive will repeat in 1-2 days History of chronic respiratory failure and chronic obstructive pulmonary disease. -- stable, no cough or sob on chronic 3 L 02 at home History of atrial fibrillation, history of status post atrioventricular node ablation, status post biventricular pacemaker. -- on coumadin INR theraputic DISPOSITION : lives alone in custodial apartment at [facility] PT/OT eval requested referral made to [facility] COVID 19 test positive on 01/30/20 waiting for SNF at [facility] needs negative Covid 19 test to be transferred Admission and Anticipated Discharge Date Admission Date: January 27, 2020 Subjective Follow-up for Covid, neck pain Spoke with patient over the phone at length before examination at the bedside Seen resting in bedside chair, just had dinner Comfortable, not distressed, in good spirits At baseline 2 L of oxygen via nasal cannula States she feels okay overall, just tired No shortness of breath, coughing less Neck pain slowly improving No other symptom Review of Systems Review of Systems: All systems reviewed & are unremarkable except as noted in Subjective Physical Exam Physical Exam: General- oriented x 3, not in distress, speaks in sentences with no effort or accessory muscle use Eyes- anicteric Neck- no JVD Lungs- clear breath sounds bilaterally, no rales/wheezes Heart- normal rate, regular rhythm; no murmurs Abdomen- normal bowel sounds, nondistended, soft, nontender Extremities- no pretibial edema, no calf tenderness Neuro- alert, oriented x 3; no gross focal neurologic deficits Skin- warm & dry Results & Data Results & Data ([facility]) Vital Signs (Past 12 Hours) Vital Signs Temp Pulse Resp BP Pulse Ox 02/01/20 19:26 36.8 C 86 18 125/62 95 02/01/20 15:54 36.9 C 70 22 120/75 98 02/01/20 08:01 36.8 C 74 18 144/73 H 97 Laboratory Results Laboratory Results - last 24 hr 02/01/20 05:32 PT 24.7 H INR 2.5 H
[2020-02-01] MEDS: LORazepam 1 MG TAB PO PRN (20:35)
[2020-02-02] MEDS: MAGNESIUM OXIDE 400 MG TAB PO SCH ×2 (08:32→21:23)
[2020-02-02] MEDS: CALCIUM 600MG + VIT D 400 IU TAB PO SCH ×2 (08:32→21:23)
[2020-02-02] MEDS: FUROSEMIDE 20 MG TAB PO SCH (08:32)
[2020-02-02] MEDS: CYCLOBENZAPRINE HCL 5 MG TAB PO SCH ×2 (08:32→21:23)
[2020-02-02] MEDS: MULTIVITAMIN TAB PO SCH (08:32)
[2020-02-02] MEDS: SERTRALINE HCL 50 MG TABLET PO SCH (08:32)
[2020-02-02] MEDS: POTASSIUM CHLORIDE 10 MEQ TABCR PO SCH (08:33)
[2020-02-02] MEDS: FLUTICASONE PROPIONATE NA SPR 16 GM BTL SCH (08:33)
[2020-02-02] MEDS: PANTOprazole 40 MG TAB PO SCH (08:33)
[2020-02-02] MEDS: UMECLIDINIUM/VILANTEROL 62.5/25MCG 7 PUFFS/INHALER INH SCH (08:33)
[2020-02-02] MEDS: FLUTICASONE FUROATE 100MCG 14 PUFFS/INHALER INH SCH (08:33)
[2020-02-02] MEDS: FERROUS SULFATE 325 MG TAB PO SCH (08:33)
[2020-02-02] MEDS: SPIRONOLACTONE 25 MG TAB PO SCH (08:33)
[2020-02-02] MEDS: HYDROCORTISONE VAL 0.2% CRM 15GM TUBE EXT SCH ×2 (08:37→21:24)
[2020-02-02] MEDS: LIDOCAINE 5% 1 PATCH TD SCH (11:00)
[2020-02-02] MEDS: WARFARIN SOD 5 MG TAB PO SCH (16:06)
--- NOTE | 2020-02-02 20:14 | Hospitalist Progress Note ---
Date of Service February 02, 2020 Assessment & Plan (1) COVID-19: (1) Acute neck pain: Neck pain likely secondary to Musculoskeletal pain -- improved -- no evidence of radiculopathy, CT neck /cervical spine not indicated -- pt will benefit with skilled rehab COVID 19 Positive -- no cough or SOB , no fever or chills on 3 L 02 her baseline comfortable CXR: no infiltrate -- continue standard isolation precaution repeat COVID 19 test on 01/30/20 : positive -- repeat COVID 19 test 02/01: positive will repeat in 1-2 days -- no new symptoms History of chronic respiratory failure and chronic obstructive pulmonary disease. -- stable, no cough or sob on chronic 3 L 02 at home History of atrial fibrillation, history of status post atrioventricular node ablation, status post biventricular pacemaker. -- on coumadin INR theraputic -- check INR tomorrow DISPOSITION : lives alone in jail apartment at [facility] PT/OT eval requested referral made to [facility] COVID 19 test positive on 01/30/20 waiting for SNF at [facility] needs negative Covid 19 test to be transferred Admission and Anticipated Discharge Date Admission Date: January 27, 2020 Subjective ff up for COVID infection seen sitting up in bed, watching TV, comfortable states she feels fine overall no SOB no new symptoms Review of Systems Review of Systems: All systems reviewed & are unremarkable except as noted in Subjective Physical Exam Physical Exam: General- oriented x 3, not in distress, speaks in sentences with no effort or accessory muscle use Eyes- anicteric Neck- no JVD Lungs- clear BS BL Heart- normal rate, regular rhythm; no murmurs Abdomen- normal bowel sounds, nondistended, soft, nontender Extremities- no pretibial edema, no calf tenderness Neuro- alert, oriented x 3; no gross focal neurologic deficits Skin- warm & dry Results & Data Results & Data ([facility]) Vital Signs (Past 12 Hours) Vital Signs Temp Pulse Resp BP Pulse Ox 02/02/20 19:38 36.5 C 69 20 121/75 98 02/02/20 16:10 36.8 C 72 20 118/71 100 02/02/20 11:02 36.8 C 71 18 104/67 98
[2020-02-02] MEDS: HYDROmorphone INJ 0.5 MG/0.5 ML SYR IV PRN (21:22)
[2020-02-02] MEDS: LORazepam 1 MG TAB PO PRN (21:23)
[2020-02-03 07:45] LABS: INR 2.2 (0.9-1.1)
[2020-02-03] MEDS: POTASSIUM CHLORIDE 10 MEQ TABCR PO SCH (08:37)
[2020-02-03] MEDS: PANTOprazole 40 MG TAB PO SCH (08:37)
[2020-02-03] MEDS: SERTRALINE HCL 50 MG TABLET PO SCH (08:37)
[2020-02-03] MEDS: SPIRONOLACTONE 25 MG TAB PO SCH (08:37)
[2020-02-03] MEDS: FUROSEMIDE 20 MG TAB PO SCH (08:37)
[2020-02-03] MEDS: MULTIVITAMIN TAB PO SCH (08:38)
[2020-02-03] MEDS: MAGNESIUM OXIDE 400 MG TAB PO SCH ×2 (08:38→20:37)
[2020-02-03] MEDS: FERROUS SULFATE 325 MG TAB PO SCH (08:38)
[2020-02-03] MEDS: LIDOCAINE 5% 1 PATCH TD SCH (08:38)
[2020-02-03] MEDS: HYDROCORTISONE VAL 0.2% CRM 15GM TUBE EXT SCH ×2 (08:39→20:38)
[2020-02-03] MEDS: FLUTICASONE FUROATE 100MCG 14 PUFFS/INHALER INH SCH (08:43)
[2020-02-03] MEDS: FLUTICASONE PROPIONATE NA SPR 16 GM BTL SCH (08:43)
[2020-02-03] MEDS: UMECLIDINIUM/VILANTEROL 62.5/25MCG 7 PUFFS/INHALER INH SCH (08:43)
[2020-02-03] MEDS: CYCLOBENZAPRINE HCL 5 MG TAB PO SCH ×2 (08:44→20:37)
[2020-02-03] MEDS: CALCIUM 600MG + VIT D 400 IU TAB PO SCH ×2 (08:44→20:37)
[2020-02-03] MEDS: WARFARIN SOD 5 MG TAB PO SCH (15:06)
[2020-02-03] MEDS: LORazepam 1 MG TAB PO PRN (20:37)
[2020-02-03] MEDS: oxyCODONE/ACETAMINOPHEN 5mg/325mg TAB PO PRN (20:37)
--- NOTE | 2020-02-03 20:53 | Hospitalist Progress Note ---
Date of Service February 03, 2020 Assessment & Plan (1) COVID-19: (1) Acute neck pain: Neck pain likely secondary to Musculoskeletal pain --Continues to improve Lidocaine added -- no evidence of radiculopathy, CT neck /cervical spine not indicated -- pt will benefit with skilled rehab COVID 19 Positive -- no cough or SOB , no fever or chills on 3 L 02 her baseline comfortable CXR: no infiltrate -- continue standard isolation precaution repeat COVID 19 test on 01/30/20 : positive -- repeat COVID 19 test 02/01: positive Repeat test tomorrow 02/04/2020 --Stable, no new complaints History of chronic respiratory failure and chronic obstructive pulmonary disease. -- stable, no cough or sob on chronic 3 L 02 at home History of atrial fibrillation, history of status post atrioventricular node ablation, status post biventricular pacemaker. -- on coumadin INR theraputic -- check INR in 2 days DISPOSITION : lives alone in group home apartment at [facility] PT/OT eval requested referral made to [facility] COVID 19 test positive on 01/30/20 waiting for SNF [facility] needs negative Covid 19 test to be transferred Admission and Anticipated Discharge Date Admission Date: January 27, 2020 Subjective Follow-up for Covid infection Seen sitting up in bed, comfortable, watching TV, in good spirits States she feels fine overall Still somewhat weak but improving No shortness of breath, cough, fevers or chills Appetite is great No other symptoms Review of Systems Review of Systems: All systems reviewed & are unremarkable except as noted in Subjective Physical Exam Physical Exam: General- oriented x 3, not in distress, speaks in sentences with no effort or accessory muscle use Eyes- anicteric Neck- no JVD Lungs- clear breath sounds, no crackles, no wheezing bilaterally Heart- normal rate, regular rhythm; no murmurs Abdomen- normal bowel sounds, nondistended, soft, nontender Extremities- no lower leg edema, no calf tenderness Neuro- alert, oriented x 3; no gross focal neurologic deficits Skin- warm & dry Results & Data Results & Data ([facility]) Vital Signs (Past 12 Hours) Vital Signs Temp Pulse Resp BP Pulse Ox 02/03/20 20:35 37.1 C 72 20 134/82 97 02/03/20 15:05 36.9 C 72 20 101/64 97 Laboratory Results Laboratory Results - last 24 hr 02/03/20 06:48 PT 22.0 H INR 2.2 H
[2020-02-04] MEDS: UMECLIDINIUM/VILANTEROL 62.5/25MCG 7 PUFFS/INHALER INH SCH (08:38)
[2020-02-04] MEDS: FLUTICASONE PROPIONATE NA SPR 16 GM BTL SCH (08:38)
[2020-02-04] MEDS: MAGNESIUM OXIDE 400 MG TAB PO SCH ×2 (08:38→20:44)
[2020-02-04] MEDS: CALCIUM 600MG + VIT D 400 IU TAB PO SCH ×2 (08:38→20:44)
[2020-02-04] MEDS: FLUTICASONE FUROATE 100MCG 14 PUFFS/INHALER INH SCH (08:38)
[2020-02-04] MEDS: FERROUS SULFATE 325 MG TAB PO SCH (08:39)
[2020-02-04] MEDS: SERTRALINE HCL 50 MG TABLET PO SCH (08:39)
[2020-02-04] MEDS: FUROSEMIDE 20 MG TAB PO SCH (08:39)
[2020-02-04] MEDS: POTASSIUM CHLORIDE 10 MEQ TABCR PO SCH (08:39)
[2020-02-04] MEDS: MULTIVITAMIN TAB PO SCH (08:39)
[2020-02-04] MEDS: PANTOprazole 40 MG TAB PO SCH (08:39)
[2020-02-04] MEDS: SPIRONOLACTONE 25 MG TAB PO SCH (08:39)
[2020-02-04] MEDS: LIDOCAINE 5% 1 PATCH TD SCH (08:40)
[2020-02-04] MEDS: CYCLOBENZAPRINE HCL 5 MG TAB PO SCH ×2 (08:40→20:44)
[2020-02-04] MEDS: HYDROCORTISONE VAL 0.2% CRM 15GM TUBE EXT SCH ×2 (08:40→20:45)
[2020-02-04] MEDS: WARFARIN SOD 5 MG TAB PO SCH (16:42)
--- NOTE | 2020-02-04 17:35 | Hospitalist Progress Note ---
Date of Service February 04, 2020 Assessment & Plan (1) COVID-19: (1) Acute neck pain: Neck pain likely secondary to Musculoskeletal pain --resolved Lidocaine added -- no evidence of radiculopathy, CT neck /cervical spine not indicated -- pt will benefit with skilled rehab COVID 19 Positive -- no cough or SOB , no fever or chills on 3 L 02 her baseline comfortable CXR: no infiltrate -- continue standard isolation precaution repeat COVID 19 test on 01/30/20 : positive -- repeat COVID 19 test 02/01: positive Repeat test 02/04/2020: negative --Stable, no new complaints History of chronic respiratory failure and chronic obstructive pulmonary disease. -- stable, no cough or sob on chronic 3 L 02 at home History of atrial fibrillation, history of status post atrioventricular node ablation, status post biventricular pacemaker. -- on coumadin INR theraputic -- check INR DISPOSITION : lives alone in assisted apartment at [facility] PT/OT eval requested referral made to [facility] COVID 19 test positive on 01/30/20 waiting for SNF at [facility] needs negative Covid 19 test to be transferred Admission and Anticipated Discharge Date Admission Date: January 27, 2020 Subjective Follow-up for Covid 19 infection Seen resting in bedside chair, comfortable, in good spirits States she feels fine No shortness of breath, no cough No new complaints Review of Systems Review of Systems: All systems reviewed & are unremarkable except as noted in Subjective Physical Exam Physical Exam: General- oriented x 3, not in distress, speaks in sentences with no effort or accessory muscle use Eyes- anicteric Neck- no JVD Lungs- clear breath sounds, no crackles bilaterally Heart- normal rate, regular rhythm; no murmurs Abdomen- normal bowel sounds, nondistended, soft, nontender Extremities- no pretibial edema, no calf tenderness Neuro- alert, oriented x 3; no gross focal neurologic deficits Skin- warm & dry Results & Data Results & Data ([facility]) Vital Signs (Past 12 Hours) Vital Signs Temp Pulse Resp BP Pulse Ox 02/04/20 15:11 36.8 C 73 18 114/71 99 02/04/20 07:56 36.5 C 82 18 144/76 H 97
[2020-02-04] MEDS: oxyCODONE/ACETAMINOPHEN 5mg/325mg TAB PO PRN (20:44)
[2020-02-04] MEDS: LORazepam 1 MG TAB PO PRN (20:44)
[2020-02-05 06:52] LABS: INR 2.2 (0.9-1.1); Prothrombin Time 22.2 Seconds (9.0-12.0)
[2020-02-05] MEDS: FLUTICASONE FUROATE 100MCG 14 PUFFS/INHALER INH SCH (10:19)
[2020-02-05] MEDS: SERTRALINE HCL 50 MG TABLET PO SCH (10:21)
[2020-02-05] MEDS: FLUTICASONE PROPIONATE NA SPR 16 GM BTL SCH (10:21)
[2020-02-05] MEDS: FUROSEMIDE 20 MG TAB PO SCH (10:21)
[2020-02-05] MEDS: FERROUS SULFATE 325 MG TAB PO SCH (10:21)
[2020-02-05] MEDS: MAGNESIUM OXIDE 400 MG TAB PO SCH ×2 (10:21→22:24)
[2020-02-05] MEDS: SPIRONOLACTONE 25 MG TAB PO SCH (10:22)
[2020-02-05] MEDS: CALCIUM 600MG + VIT D 400 IU TAB PO SCH ×2 (10:22→22:24)
[2020-02-05] MEDS: PANTOprazole 40 MG TAB PO SCH (10:22)
[2020-02-05] MEDS: CYCLOBENZAPRINE HCL 5 MG TAB PO SCH ×2 (10:22→22:23)
[2020-02-05] MEDS: POTASSIUM CHLORIDE 10 MEQ TABCR PO SCH (10:22)
[2020-02-05] MEDS: MULTIVITAMIN TAB PO SCH (10:22)
[2020-02-05] MEDS: HYDROCORTISONE VAL 0.2% CRM 15GM TUBE EXT SCH ×2 (10:23→22:24)
[2020-02-05] MEDS: LIDOCAINE 5% 1 PATCH TD SCH (10:23)
[2020-02-05] MEDS: UMECLIDINIUM/VILANTEROL 62.5/25MCG 7 PUFFS/INHALER INH SCH (10:24)
[2020-02-05] MEDS: WARFARIN SOD 5 MG TAB PO SCH (15:19)
--- NOTE | 2020-02-05 18:24 | Hospitalist Progress Note ---
Date of Service February 05, 2020 Assessment & Plan (1) COVID-19: (1) Acute neck pain: Neck pain likely secondary to Musculoskeletal pain --resolved Lidocaine added -- no evidence of radiculopathy, CT neck /cervical spine not indicated -- pt will benefit with skilled rehab COVID 19 Positive -- no cough or SOB , no fever or chills on 3 L 02 her baseline comfortable CXR: no infiltrate -- continue standard isolation precaution repeat COVID 19 test on 01/30/20 : positive -- repeat COVID 19 test 02/01: positive Repeat test 02/04/2020: negative -- remains stable no new complaints repeat test tomorrow as 2 negative Covid test required by SNF History of chronic respiratory failure and chronic obstructive pulmonary disease. -- stable, no cough or sob on chronic 3 L 02 at home History of atrial fibrillation, history of status post atrioventricular node ablation, status post biventricular pacemaker. -- on coumadin INR theraputic -- check INR DISPOSITION : lives alone in retirement apartment at [facility] PT/OT eval requested waiting acceptance at [facility] requires 2 negative Covid 19 tests to be transferred Admission and Anticipated Discharge Date Admission Date: January 27, 2020 Subjective ff up for covid infection seen resting in bedside chair, comfortable in good spirits states she feels fine no SOB, cough, chest pain no abdominal pain, nausea appetite is great no other symptoms Review of Systems Review of Systems: All systems reviewed & are unremarkable except as noted in Subjective Physical Exam Physical Exam: General- oriented x 3, not in distress, speaks in sentences with no effort or accessory muscle use Eyes- anicteric Neck- no JVD Lungs- clear BS bl no rales Heart- normal rate, regular rhythm; no murmurs Abdomen- normal bowel sounds, nondistended, soft, nontender Extremities- no pretibial edema, no calf tenderness Neuro- alert, oriented x 3; no gross focal neurologic deficits Skin- warm & dry Results & Data Results & Data ([facility]) Vital Signs (Past 12 Hours) Vital Signs Temp Pulse Resp BP Pulse Ox 02/05/20 16:32 37.9 C H 72 24 114/72 99 02/05/20 12:02 37.0 C 70 18 111/72 99 02/05/20 07:59 36.5 C 71 20 124/79 100
[2020-02-05] MEDS: LORazepam 1 MG TAB PO PRN (22:25)
[2020-02-05] MEDS: oxyCODONE/ACETAMINOPHEN 5mg/325mg TAB PO PRN (22:25)
[2020-02-06] MEDS: LIDOCAINE 5% 1 PATCH TD SCH (08:26)
[2020-02-06] MEDS: MULTIVITAMIN TAB PO SCH (08:26)
[2020-02-06] MEDS: PANTOprazole 40 MG TAB PO SCH (08:26)
[2020-02-06] MEDS: SERTRALINE HCL 50 MG TABLET PO SCH (08:26)
[2020-02-06] MEDS: FLUTICASONE PROPIONATE NA SPR 16 GM BTL SCH (08:26)
[2020-02-06] MEDS: FUROSEMIDE 20 MG TAB PO SCH (08:26)
[2020-02-06] MEDS: FERROUS SULFATE 325 MG TAB PO SCH (08:26)
[2020-02-06] MEDS: POTASSIUM CHLORIDE 10 MEQ TABCR PO SCH (08:26)
[2020-02-06] MEDS: SPIRONOLACTONE 25 MG TAB PO SCH (08:26)
[2020-02-06] MEDS: CYCLOBENZAPRINE HCL 5 MG TAB PO SCH ×2 (08:27→20:47)
[2020-02-06] MEDS: MAGNESIUM OXIDE 400 MG TAB PO SCH ×2 (08:27→20:47)
[2020-02-06] MEDS: CALCIUM 600MG + VIT D 400 IU TAB PO SCH ×2 (08:27→20:47)
[2020-02-06] MEDS: FLUTICASONE FUROATE 100MCG 14 PUFFS/INHALER INH SCH (08:27)
[2020-02-06] MEDS: HYDROCORTISONE VAL 0.2% CRM 15GM TUBE EXT SCH ×2 (08:28→20:48)
[2020-02-06] MEDS: UMECLIDINIUM/VILANTEROL 62.5/25MCG 7 PUFFS/INHALER INH SCH (08:30)
[2020-02-06] MEDS: WARFARIN SOD 5 MG TAB PO SCH (16:11)
--- NOTE | 2020-02-06 17:48 | Hospitalist Progress Note ---
Date of Service February 06, 2020 Assessment & Plan (1) COVID-19: Neck pain likely secondary to Musculoskeletal pain --resolved Lidocaine added -- no evidence of radiculopathy, CT neck /cervical spine not indicated COVID-19 Infection -- no cough or SOB, no fever or chills on 3 L 02 her baseline comfortable CXR: no infiltrate -- continue standard isolation precaution repeat COVID 19 test on 01/30/20 : Positive repeat COVID 19 test 02/01: Positive Repeat test 02/04/2020: negative Repeat test 02/06/2020: Positive -- patient is stable, on baseline 3 L NC no new complaints repeat Covid test in 48 hours History of chronic respiratory failure and chronic obstructive pulmonary disease -- stable, no cough or sob on chronic 3 L 02 at home History of atrial fibrillation, history of status post atrioventricular node ablation, status post biventricular pacemaker -- on coumadin INR theraputic DISPOSITION : lives alone in snf apartment at [facility]--> to be transitioned to [facility] requires 2 negative Covid 19 before acceptance to [facility] Admission and Anticipated Discharge Date Admission Date: January 27, 2020 Subjective ff up for Covid infection, neck pain, etc sitting up in chair, comfortable on baseline 3 L NC states she feels ok overall no dyspnea, cough, chills appetite is good denies other symptoms Review of Systems Review of Systems: All systems reviewed & are unremarkable except as noted in Subjective Physical Exam Physical Exam: General- oriented x 3, not in distress, speaks in sentences with no effort or accessory muscle use Eyes- anicteric Neck- no JVD Lungs- clear BS BL Heart- normal rate, regular rhythm; no murmurs Abdomen- normal bowel sounds, nondistended, soft, nontender Extremities- no pretibial edema, no calf tenderness Neuro- alert, oriented x 3; no gross focal neurologic deficits Skin- warm & dry Results & Data Results & Data ([facility]) Vital Signs (Past 12 Hours) Vital Signs Temp Pulse Pulse Resp BP Pulse Ox 02/06/20 16:10 36.9 C 71 20 110/69 98 02/06/20 12:06 37.2 C 70 19 114/73 90 02/06/20 08:13 36.9 C 70 19 111/66 99
[2020-02-06] MEDS: oxyCODONE/ACETAMINOPHEN 5mg/325mg TAB PO PRN (20:45)
[2020-02-07 06:24] LABS: INR 2.2 (0.9-1.1); Prothrombin Time 21.9 Seconds (9.0-12.0)
[2020-02-07] MEDS: CYCLOBENZAPRINE HCL 5 MG TAB PO SCH ×2 (08:14→19:31)
[2020-02-07] MEDS: CALCIUM 600MG + VIT D 400 IU TAB PO SCH ×2 (08:14→19:32)
[2020-02-07] MEDS: FUROSEMIDE 20 MG TAB PO SCH (08:14)
[2020-02-07] MEDS: MAGNESIUM OXIDE 400 MG TAB PO SCH ×2 (08:14→19:32)
[2020-02-07] MEDS: FERROUS SULFATE 325 MG TAB PO SCH (08:14)
[2020-02-07] MEDS: MULTIVITAMIN TAB PO SCH (08:15)
[2020-02-07] MEDS: SPIRONOLACTONE 25 MG TAB PO SCH (08:15)
[2020-02-07] MEDS: PANTOprazole 40 MG TAB PO SCH (08:15)
[2020-02-07] MEDS: POTASSIUM CHLORIDE 10 MEQ TABCR PO SCH (08:15)
[2020-02-07] MEDS: SERTRALINE HCL 50 MG TABLET PO SCH (08:15)
[2020-02-07] MEDS: FLUTICASONE PROPIONATE NA SPR 16 GM BTL SCH (08:15)
[2020-02-07] MEDS: LIDOCAINE 5% 1 PATCH TD SCH (08:15)
[2020-02-07] MEDS: FLUTICASONE FUROATE 100MCG 14 PUFFS/INHALER INH SCH (08:16)
[2020-02-07] MEDS: HYDROCORTISONE VAL 0.2% CRM 15GM TUBE EXT SCH ×2 (08:16→19:30)
[2020-02-07] MEDS: UMECLIDINIUM/VILANTEROL 62.5/25MCG 7 PUFFS/INHALER INH SCH (08:16)
[2020-02-07] MEDS: WARFARIN SOD 5 MG TAB PO SCH (17:15)
[2020-02-07] MEDS: oxyCODONE/ACETAMINOPHEN 5mg/325mg TAB PO PRN (19:28)
--- NOTE | 2020-02-07 20:57 | Hospitalist Progress Note ---
Date of Service February 07, 2020 Assessment & Plan (1) COVID-19: COVID-19 Infection -- no cough or SOB, no fever or chills on 3 L 02 her baseline comfortable CXR: no infiltrate -- continue standard isolation precaution repeat COVID 19 test on 01/30/20 : Positive repeat test 02/02/2020: Positive Repeat test 02/04/2020: negative Repeat test 02/06/2020: Positive -- patient is stable, back to baseline 3 L NC no new complaints repeat Covid test tomorrow [facility] requires 2 consecutive negative Covid tests prior to acceptance Neck pain likely secondary to Musculoskeletal pain --resolved Lidocaine added -- no evidence of radiculopathy, CT neck /cervical spine not indicated History of chronic respiratory failure and chronic obstructive pulmonary disease -- stable, no cough or sob on chronic 3 L 02 at home History of atrial fibrillation, history of status post atrioventricular node ablation, status post biventricular pacemaker -- on coumadin INR therapeutic DISPOSITION : lives alone in skilled nursing apartment at [facility]--> to be transitioned to [facility] requires 2 negative Covid 19 before acceptance to [facility] Admission and Anticipated Discharge Date Admission Date: January 27, 2020 Subjective Follow-up for Covid infection Seen resting bedside chair, watching TV, comfortable, not in distress Reports feeling tired, with mild shortness of breath but otherwise feels fine overall No other symptoms Review of Systems Review of Systems: All systems reviewed & are unremarkable except as noted in Subjective Physical Exam Physical Exam: General- oriented x 3, not in distress, speaks in sentences with no effort or accessory muscle use Eyes- anicteric Neck- no JVD Lungs- clear breath sounds bilaterally Heart- normal rate, regular rhythm; no murmurs Abdomen- normal bowel sounds, nondistended, soft, nontender Extremities- no pretibial edema, no calf tenderness Neuro- alert, oriented x 3; no gross focal neurologic deficits Skin- warm & dry Results & Data Results & Data ([facility]) Vital Signs (Past 12 Hours) Vital Signs Temp Pulse Resp BP Pulse Ox 02/07/20 19:26 36.9 C 70 18 123/75 98 02/07/20 15:29 37.2 C 71 18 115/70 99
[2020-02-08] MEDS: MAGNESIUM OXIDE 400 MG TAB PO SCH ×2 (09:14→20:23)
[2020-02-08] MEDS: FUROSEMIDE 20 MG TAB PO SCH (09:14)
[2020-02-08] MEDS: CALCIUM 600MG + VIT D 400 IU TAB PO SCH ×2 (09:14→20:24)
[2020-02-08] MEDS: FLUTICASONE PROPIONATE NA SPR 16 GM BTL SCH (09:14)
[2020-02-08] MEDS: MULTIVITAMIN TAB PO SCH (09:14)
[2020-02-08] MEDS: CYCLOBENZAPRINE HCL 5 MG TAB PO SCH ×2 (09:15→20:23)
[2020-02-08] MEDS: PANTOprazole 40 MG TAB PO SCH (09:15)
[2020-02-08] MEDS: SERTRALINE HCL 50 MG TABLET PO SCH (09:16)
[2020-02-08] MEDS: POTASSIUM CHLORIDE 10 MEQ TABCR PO SCH (09:16)
[2020-02-08] MEDS: FLUTICASONE FUROATE 100MCG 14 PUFFS/INHALER INH SCH (09:17)
[2020-02-08] MEDS: SPIRONOLACTONE 25 MG TAB PO SCH (09:17)
[2020-02-08] MEDS: FERROUS SULFATE 325 MG TAB PO SCH (09:17)
[2020-02-08] MEDS: HYDROCORTISONE VAL 0.2% CRM 15GM TUBE EXT SCH ×2 (09:19→20:24)
[2020-02-08] MEDS: LIDOCAINE 5% 1 PATCH TD SCH (09:20)
[2020-02-08] MEDS: UMECLIDINIUM/VILANTEROL 62.5/25MCG 7 PUFFS/INHALER INH SCH (09:38)
--- NOTE | 2020-02-08 13:16 | Hospitalist Progress Note ---
Date of Service February 08, 2020 Assessment & Plan (1) COVID-19: COVID-19 Infection -- no cough or SOB, no fever or chills on 3 L 02 her baseline comfortable CXR: no infiltrate -- continue standard isolation precaution repeat COVID 19 test on 01/30/20 : Positive repeat test 02/02/2020: Positive Repeat test 02/04/2020: negative Repeat test 02/06/2020: Positive -- patient is stable, back to baseline 3 L NC no new complaints repeat Covid test today [facility] requires 2 consecutive negative Covid tests prior to acceptance Neck pain likely secondary to Musculoskeletal pain --resolved Lidocaine added -- no evidence of radiculopathy, CT neck /cervical spine not indicated History of chronic respiratory failure and chronic obstructive pulmonary disease -- stable, no cough or sob on chronic 3 L 02 at home History of atrial fibrillation, history of status post atrioventricular node ablation, status post biventricular pacemaker -- on coumadin INR therapeutic DISPOSITION : lives alone in care home apartment at [facility]--> to be transitioned to [facility] requires 2 negative Covid 19 before acceptance to [facility] ROS-No Headache, No Visual Changes, No Nausea, No Vomiting, No Fever, No Chills, No Neck Pain or Stiffness, No Chest Pain, No Palpitations, No SOB, No WHITFIELD, No Cough, No Sputum, No Wheezing, No Abdominal Pain, No Diarrhea, No Hematemesis, No Hemoptysis, No Unexpected Weight Loss, No Flank pain, No Melena, No Hematochezia, No Frequency, No Urgency, No Burning, No Hematuria, No Rashes, No Diaphoresis. Appetite is Normal Physical Exam Gen-AAO x 3, NAD, Afebrile Head-NCAT, EOMI, PERRLA, Anicteric Sclera, No Posterior Pharyngeal Erythema Neck-Supple, No JVD, No Thyromegaly, No Masses, No LAD, No Bruits Lungs-Clear to Auscultation Bilaterally, No Rales, No Rhonchi, No Wheezing, No Crepitus Chest-No S4, +S1, +S2, No S3, No Murmurs, No Rubs, No Gallops, No Ectopy Abdomen-Soft, Bowel Sounds Present, Non Tender, Non Distended, No Hepatomegaly, No Splenomegaly, No Palpable Masses, No Rebound, No Rigidity, No Guarding Musculoskeletal-Full Range of Motion Bilaterally, No CVAT Extremities-No Cyanosis, No Clubbing, No Edema Nuero-Cranial Nerves II-XII grossly intact, Motor WNL, DTRs WNL, Strength WNL, N on Focal Psych-Normal Mood Admission and Anticipated Discharge Date Admission Date: January 27, 2020 Results & Data Results & Data ([facility]) Vital Signs (Past 12 Hours) Vital Signs Temp Pulse Resp BP Pulse Ox 02/08/20 09:07 36.9 C 79 16 147/79 H 99
[2020-02-08] MEDS: WARFARIN SOD 5 MG TAB PO SCH (16:25)
[2020-02-08] MEDS: oxyCODONE/ACETAMINOPHEN 5mg/325mg TAB PO PRN (20:22)
[2020-02-08] MEDS: LORazepam 1 MG TAB PO PRN (20:23)
[2020-02-09 06:18] LABS: Hematocrit (blood only) 38.5 % (37-47); Hemoglobin 11.3 g/dL (12.0-16.0); Mean Corpuscular Hemoglobin 24.5 pg (25-34); Mean Corpuscular Hgb Conc 29.4 g/dL (32-36); Mean Corpuscular Volume 83.3 fL (80-100); Mean Platelet Volume 11.2 fL (7.4-10.4); Platelet Count 185 K/uL (130-400); RDW Coefficient of Variation 18.2 % (11.5-14.5); RDW Standard Deviation 55.9 fL (36.4-46.3); Red Blood Count 4.62 M/uL (4.2-5.4); White Blood Count 4.72 K/uL (4.8-10.8)
[2020-02-09 06:42] VITALS: PULSE 69; TEMP 98.4; O2SAT 98
[2020-02-09 06:57] LABS: Albumin Level 3.1 gm/dl (3.4-5.0); BUN Creatinine Ratio 19.3 (10-20); Calcium 8.5 mg/dl (8.5-10.1); Creatinine Clr Calc Pharmacy 64.4 ml/min; Est GFR (African American) 65.3; Est GFR (Non-African American) 56.4; Potassium 3.9 mmol/L (3.5-5.1)
[2020-02-09 06:59] LABS: Bilirubin,Total 0.4 mg/dl (0.2-1); Total Protein 6.1 gm/dl (6.4-8.2)
[2020-02-09] MEDS: FLUTICASONE FUROATE 100MCG 14 PUFFS/INHALER INH SCH (09:44)
[2020-02-09] MEDS: UMECLIDINIUM/VILANTEROL 62.5/25MCG 7 PUFFS/INHALER INH SCH (09:44)
[2020-02-09] MEDS: LIDOCAINE 5% 1 PATCH TD SCH (09:45)
[2020-02-09] MEDS: HYDROCORTISONE VAL 0.2% CRM 15GM TUBE EXT SCH (09:45)
[2020-02-09] MEDS: SERTRALINE HCL 50 MG TABLET PO SCH (09:46)
[2020-02-09] MEDS: MULTIVITAMIN TAB PO SCH (09:46)
[2020-02-09] MEDS: FUROSEMIDE 20 MG TAB PO SCH (09:46)
[2020-02-09] MEDS: FERROUS SULFATE 325 MG TAB PO SCH (09:47)
[2020-02-09] MEDS: SPIRONOLACTONE 25 MG TAB PO SCH (09:47)
[2020-02-09] MEDS: POTASSIUM CHLORIDE 10 MEQ TABCR PO SCH (09:47)
[2020-02-09] MEDS: PANTOprazole 40 MG TAB PO SCH (09:47)
[2020-02-09] MEDS: MAGNESIUM OXIDE 400 MG TAB PO SCH (09:48)
[2020-02-09] MEDS: CYCLOBENZAPRINE HCL 5 MG TAB PO SCH (09:48)
[2020-02-09] MEDS: FLUTICASONE PROPIONATE NA SPR 16 GM BTL SCH (09:49)
[2020-02-09] MEDS: CALCIUM 600MG + VIT D 400 IU TAB PO SCH (09:49)
--- NOTE | 2020-02-09 11:06 | Discharge Summary ---
Date of Service February 09, 2020 Admission HPI Per Admitting Provider 69-year-old female with past medical history significant for COPD, history of pulmonary nodules, history of chronic respiratory failure, on home oxygen 3 liters, hyperlipidemia, history of atrial fibrillation, atrial multifocal tachycardia, patent foramen ovale, history of status post atrioventricular node ablation, status post biventricular pacemaker, ambulatory dysfunction, depression, chronic kidney disease stage III, diastolic CHF, pulmonary hypertension, GERD, aseptic necrosis of both hips, status post bilateral hip replacement, recently had right hip replacement done in August in [place], history of meningioma, history of low vitamin B12, psoriasis, depression, and anxiety. The patient lives alone. Recently, she was in the hospital with right hip pain and found to have right hip hematoma. She received 1 unit of PRBC blood transfusion. She was seen by ortho and discharged to follow with her orthopedics and Coumadin was held. She received oral vitamin K during that admission. She recently restarted back on Coumadin. After getting discharged from the hospital on 01/07/2020 around she was not feeling well. She was having fever and she was tested positive for COVID on 01/17/2020 and she was doing okay at home, but today she woke up with severe neck pain, it was not getting better, which prompted her to come to the ER. In the ER, her hemodynamics are stable. Labs showed no leukocytosis, lymphopenia present. INR was 1.5. Troponin negative. Repeat COVID-19 PCR positive. Chest x-ray, no acute findings. There was a plan also for her to go to [facility], but because of COVID this is held currently. The patient received Decadron in the ER and currently pain is improved. She is resting comfortably and hemodynamically stable. Denies any chest pain. Denies any shortness of breath. She has a chronic cough, nothing unusual. She is saturating fine on 3 liters, which is her baseline. Denies any chest pain. No headache, no blurred vision, no earache, no runny nose, no sore throat. Denies any loss of sense of smell or taste. Appetite is okay. No dysphagia. Normal bowel and bladder movements. No swelling in the legs, no rash seen. Admission Exam Per Admitting Provider PHYSICAL EXAMINATION: GENERAL: The patient is of moderate build, not in acute distress. VITAL SIGNS: Temperature 36.8, pulse 74, respiratory rate 22, blood pressure 128/65, oxygen 96% on 3 liters. HEENT: Pupils equal, round, and reactive to light. Oral mucosa moist. NECK: No JVD, no neck masses. Neck is supple. Flexion and extension of the neck, was able to flex, and extension of neck is okay. CARDIOVASCULAR: S1, S2 heard. Regular rate and rhythm, no murmur, no gallop. RESPIRATORY SYSTEM: Normal AP diameter. No accessory muscle use. No wheezing, no crackles. ABDOMEN: Soft, bowel sounds present, nontender. No distention. CENTRAL NERVOUS SYSTEM: Cranial nerves II through XII grossly intact, nonfocal. EXTREMITIES: No edema, no erythema. Principal Diagnosis COVID-19 Infection Neck pain likely secondary to Musculoskeletal pain History of chronic respiratory failure and chronic obstructive pulmonary disease History of atrial fibrillation Discharge Exam See below Discharge Data Allergies Allergy/AdvReac Type Severity Reaction Status Date / Time Penicillins Allergy Severe SWELLING Verified 01/27/20 20:52 OF TONGUE AND THROAT Consultations 01/27/20 21:21 ED Decision to Admit Stat 01/28/20 00:43 Consult Case Management - Discharge Planning Routine Current Diagnoses Cervicalgia (01/27/20) COVID-19 (01/27/20) Allergies Penicillins Allergy (Severe, Verified 01/27/20 20:52) SWELLING OF TONGUE AND THROAT Height/Weight/Isolation Height 5 ft 8 in Weight 101 kg Isolation Type Airborne Precautions,Contact Precautions Chemistry 02/09/20 05:46 Sodium 143 Potassium 3.9 Chloride 108 H Carbon Dioxide 34 H Anion Gap 1.0 L BUN 20 H Creatinine 1.01 Glucose 93 Hospital Course (1) COVID-19: COVID-19 Infection -- no cough or SOB, no fever or chills on 3 L 02 her baseline comfortable CXR: no infiltrate -- continue standard isolation precaution repeat COVID 19 test on 01/30/20 : Positive repeat test 02/02/2020: Positive Repeat test 02/04/2020: negative Repeat test 02/06/2020: Positive 02/07 & 02/08 Negative Neck pain likely secondary to Musculoskeletal pain --resolved Lidocaine added -- no evidence of radiculopathy, CT neck /cervical spine not indicated History of chronic respiratory failure and chronic obstructive pulmonary disease -- stable, no cough or sob on chronic 3 L 02 at home History of atrial fibrillation, history of status post atrioventricular node ablation, status post biventricular pacemaker -- on Coumadin INR therapeutic DISPOSITION : lives alone in [facility] apartment at [facility]--> to be transitioned to [facility] ROS-No Headache, No Visual Changes, No Nausea, No Vomiting, No Fever, No Chills, No Neck Pain or Stiffness, No Chest Pain, No Palpitations, No SOB, No WHITFIELD, No Cough, No Sputum, No Wheezing, No Abdominal Pain, No Diarrhea, No Hematemesis, No Hemoptysis, No Unexpected Weight Loss, No Flank pain, No Melena, No Hematochezia, No Frequency, No Urgency, No Burning, No Hematuria, No Rashes, No Diaphoresis. Appetite is Normal Physical Exam Gen-AAO x 3, NAD, Afebrile Head-NCAT, EOMI, PERRLA, Anicteric Sclera, No Posterior Pharyngeal Erythema Neck-Supple, No JVD, No Thyromegaly, No Masses, No LAD, No Bruits Lungs-Clear to Auscultation Bilaterally, No Rales, No Rhonchi, No Wheezing, No Crepitus Chest-No S4, +S1, +S2, No S3, No Murmurs, No Rubs, No Gallops, No Ectopy Abdomen-Soft, Bowel Sounds Present, Non Tender, Non Distended, No Hepatomegaly, No Splenomegaly, No Palpable Masses, No Rebound, No Rigidity, No Guarding Musculoskeletal-Full Range of Motion Bilaterally, No CVAT Extremities-No Cyanosis, No Clubbing, No Edema Nuero-Cranial Nerves II-XII grossly intact, Motor WNL, DTRs WNL, Strength WNL, Non Focal Psych-Normal Mood Total Time Total Time Spent Total Time Spent (In Minutes): 45 mins Total Time Includes: Examination of the Patient, Discharge Planning, Medication Reconciliation and Communication With Other Providers Discharge Plan Discharge Items Patient Disposition: Transfer Longterm Fac Reason For Visit: NECK PAIN Discharge Diagnosis: COVID-19 Infection Neck pain likely secondary to Musculoskeletal pain History of chronic respiratory failure and chronic obstructive pulmonary disease History of atrial fibrillation Activity: Resume your previous activity Lifting: None Bathing: No limitations Exercise/Sports: None Weightbearing: Full weightbearing Non-emergency contact: Primary Care Provider Call non-emergency contact if: you have any medication questions Follow-up/Referrals: Alvin Colon DO [Primary Care Provider] - Diet: Carb Consistent or DM2 and Heart Healthy Addtl Attending Provider Instructions: Oxygen 3L O2 NC Continuous Pending Studies at Discharge: No Stand-Alone Forms: My [facility] Skilled Items Patient informed of condition?: Yes DNR: No Discharge Level of Care: Skilled Communicable Disease: No Discharge Prognosis: Improving Lines: None Urinary Catheter: No Medications and DC Order Prescriptions: New lidocaine 5 % Adhesive Patch,Medicated 1 patch transdermal QAM Qty: 30 RF: 0 lorazepam [Ativan] 0.5 mg tablet 0.5 mg PO Q8H PRN (Reason: anxiety) Qty: 30 RF: 0 tramadol 50 mg tablet 50 mg PO Q6H PRN (Reason: pain) Qty: 30 RF: 0 lidocaine 4 % adhesive patch,medicated 1 patch topical DAILY Qty: 10 RF: 0 Continued ipratropium-albuterol 0.5 mg-3 mg(2.5 mg base)/3 mL Solution For Nebulization 3 ml INHALATION QID PRN (Reason: Shortness Of Breath) RF: 0 fluticasone propionate [Flonase Allergy Relief] 50 mcg/actuation [facility],Suspension 2 spray INTRANASAL DAILY RF: 0 Trelegy Ellipta 100-62.5-25 mcg Blister With Device 1 inh INHALATION DAILY RF: 0 spironolactone [Aldactone] 25 mg Tablet 25 mg PO DAILY RF: 0 furosemide 20 mg Tablet 20 mg PO DAILY RF: 0 potassium chloride 10 mEq Capsule, Extended Release 10 meq PO DAILY RF: 0 ferrous sulfate 325 mg (65 mg iron) Tablet 325 mg PO DAILY RF: 0 acetaminophen 325 mg Tablet 650 mg PO Q4H PRN (Reason: pain) Qty: 14 RF: 0 tramadol 50 mg Tablet 50 mg PO Q6H PRN (Reason: pain) Qty: 14 RF: 0 multivitamin Tablet 1 tab PO DAILY RF: 0 desonide 0.05 % Cream 1 applic TOPICAL BID PRN (Reason: Rash) RF: 0 hydrocortisone valerate 0.2 % Cream 1 applic TOPICAL BID RF: 0 sertraline 100 mg Tablet 1.5 tab PO QAM RF: 0 clobetasol [Temovate] 0.05 % Cream 1 applic TOPICAL BID PRN (Reason: Rash) RF: 0 lorazepam [Ativan] 0.5 mg Tablet 0.5 mg PO BID PRN (Reason: Anxiety) RF: 0 lorazepam [Ativan] 0.5 mg Tablet 1 mg PO HS PRN (Reason: Insomnia) RF: 0 pantoprazole [Protonix] 40 mg Tablet,Delayed Release (Dr/Ec) 40 mg PO QAM RF: 0 triamcinolone acetonide 0.1 % Ointment 1 applic topical DAILY PRN (Reason: Rash) RF: 0 fluocinonide 0.05 % Solution 1 applic topical DAILY PRN (Reason: Itching) RF: 0 albuterol sulfate [Ventolin HFA] 90 mcg/actuation Hfa Aerosol Inhaler 2 puff INHALATION Q4H PRN (Reason: Shortness Of Breath Or Wheezing) RF: 0 Calcium 600 + D(3) 600 mg calcium- 200 unit Capsule 1 tab PO BID RF: 0 magnesium oxide 400 mg Capsule 400 mg PO BID RF: 0 meclizine 25 mg tablet 25 mg PO TID PRN (Reason: dizziness) RF: 0 warfarin [Coumadin] 5 mg Tablet 5 mg PO DIRECTED RF: 0 Discharge Orders: Discharge Order (Routine); Ordered 02/09/20 Ordered By: Ventura Ly/Other Patient Handouts: COVID-19 Home Care Admission Data Admit Date/Time: 01/27/20 22:35 Attending Provider: Ventura Macias Admit Provider: Armani Bates Primary Care Provider: Alvin Colon Other Providers: Armani Bates ; Sondra Mejia [facility] ; [facility], ; Arlyn Charles ; [facility]
[2020-02-09 12:30] VITALS: BP 113/66
== END 2020-02-09 14:46 | disposition home or self-care (01) | DRG 551 ==
LOC: ED 19:28 → SUATTDRO 22:35 → 2S 22:35 → 3N 02-07 18:24
DX: J96.10 Chronic respiratory failure, unspecified whether with hypoxia or hypercapnia; K21.9 Gastro-esophageal reflux disease without esophagitis; Z99.81 Dependence on supplemental oxygen; R79.1 Abnormal coagulation profile; I48.91 Unspecified atrial fibrillation; Z79.899 Other long term (current) drug therapy; Z79.01 Long term (current) use of anticoagulants; F41.9 Anxiety disorder, unspecified; Z88.0 Allergy status to penicillin; Z95.0 Presence of cardiac pacemaker; N18.30 Chronic kidney disease, stage 3 unspecified; U07.1 COVID-19; Z75.1 Person awaiting admission to adequate facility elsewhere; F32.9 Major depressive disorder, single episode, unspecified; Z87.891 Personal history of nicotine dependence; M54.2 Cervicalgia; I27.20 Pulmonary hypertension, unspecified; Z79.51 Long term (current) use of inhaled steroids; I50.32 Chronic diastolic (congestive) heart failure; J44.9 Chronic obstructive pulmonary disease, unspecified

== ENCOUNTER 2021-06-30 08:04 | Inpatient (IN) ==
[2021-06-30] MEDS ORDERED: ALBUT/IPRATROP 3MG/0.5MG NEB 3 ML VIAL NEB STA (08:15)
[2021-06-30] MEDS ORDERED: dexAMETHasone**PF** 10 MG/ML VIAL IV ONE (08:15)
[2021-06-30] MEDS ORDERED: guaiFENesin 600 MG TABCR PO STA (08:15)
[2021-06-30] MEDS ORDERED: ONDANSETRON INJ 2 MG/ML 2 ML VIAL IV STA (08:17)
[2021-06-30] MEDS ORDERED: SODIUM CHLORIDE 0.9% 500 ML IV ONE ×2 (08:17→11:54)
--- NOTE | 2021-06-30 08:57 | Emergency Department Note ---
Impression & Plan Acute on chronic respiratory failure with hypercapnia, COPD exacerbation, Gastroenteritis, Leukocytosis ED Provider Note NAME: EUGENIO LIM AGE: 70 SEX: F ARRIVES VIA: Ambulance INFORMANT: Patient, EMS ED PROVIDER(S): Fransisco Shen MD CHIEF COMPLAINT: SOB, nausea, diarrhea. PLAN: Disposition: Admit MEDICAL DECISION MAKING: The patient is a pleasant 70-year-old woman with a past medical history of COPD on 2 L home oxygen at emergency department from her personal usp in [facility] for worsening shortness of breath, chest tightness, body aches and nausea, vomiting, diarrhea evolving since last night. Per EMS report there is COVID-19 in their facility. Patient is vaccinated for COVID-19 including her booster. On arrival the patient is acute on chronically ill-appearing but no acute distress, afebrile with stable vital signs. She appears clinically dry. She has diffuse wheezes with prolonged expiratory phase. EKG without overt acute ischemia. Chest x-ray negative for acute cardiopulmonary process. WBC 12.9K, nonspecific. Hemoglobin and platelets within normal limits. INR is therapeutic at 2.5. VBG demonstrates hypercapnia PCO2 of 72. pH of 7.3. Chemistry demonstrates a component of compensation with bicarb 36. Creatinine 1.27 slightly increased from recent. Potassium 2.3 and electrolytes otherwise unremarkable. LFTs are unremarkable. Troponin negative/undetectable. BNP is within normal limits. Lipase within normal limits. Procalcitonin is mildly elevated at 1.4. Covid-19 PCR negative. Influenza and RSV PCR negative. Patient was treated with IV fluid hydration, dexamethasone, DuoNeb, penicillin and Zofran on arrival with some improvement in her symptoms. However given the patient's continued symptoms in the setting of her comorbidities she is in agreement with plan for admission. Case was discussed with Dr. Kurtz, [facility] hospitalist who will evaluate the patient for admission. Agrees with empiric ABX. Cefepime ordered (Zosyn deferred given PCN allergy) empirically given the patient's leukocytosis and elevated procalcitonin. Triage Nursing notes reviewed and agree them. Prior medical records reviewed Vital Signs: reviewed and remarkable for no significant abnormalities Differential diagnosis: Reactive airway disease, pneumonia, pneumothorax, COPD, CHF, infections, cardiac ischemia, pulmonary embolism, musculoskeletal, gastrointestinal, as well as other pathologies. ER treatment provided: See below. Diagnostics interpreted by me: ECG: Ventricular paced rhythm, 78 bpm, no ectopy. no overt acute ischemia. Cardiac Monitoring: An order for continuous cardiac monitoring was placed and demonstrated Ventricular paced rhythm, 78 bpm, no ectopy. Laboratory studies: See below Imaging studies: See below Consultation(s): Case was discussed with Dr. Kurtz, [facility] hospitalist who will evaluate the patient for admission. HPI: The patient is a pleasant 70-year-old woman with a past medical history of COPD on 2 L home oxygen at emergency department from her personal usp in [facility] for worsening shortness of breath, chest tightness, body aches and nausea, vomiting, diarrhea evolving since last night. Per EMS report there is COVID-19 in their facility. Patient is vaccinated for COVID-19 including her booster. ROS: See above HPI for pertinent positives & negatives. A total of 10 systems reviewed and were otherwise negative. VITALS:See Below PHYSICAL EXAMINATION: GENERAL: Awake, alert, acute on chronically ill-appearing, in no distress, BMI 44.8. HENT: Normocephalic, atraumatic. Oropharynx with dry mucous membranes and otherwise unremarkable. EYES: Normal conjunctiva. Sclera non-icteric. NECK: Supple. No nuchal rigidity. FROM. No JVD. RESPIRATORY: Diffuse wheezes with prolonged expiratory phase. Mildly dyspneic without significant increased work of breathing CARDIAC: Regular rate, normal rhythm. Extremities warm and well perfused. Pulses equal. ABDOMEN: Soft, non-distended. No tenderness to palpation. No rebound or guarding. No masses. RECTAL: Deferred. MUSCULOSKELETAL: Chest examination reveals no tenderness. The back is symmetrical on inspection without obvious abnormality. There is no CVA tenderness to palpation. No joint edema. LOWER EXTREMITIES: Calves are equal size bilaterally and non-tender. No edema. No discoloration. NEURO: Normal sensorium. No sensory or motor deficits noted. SKIN: No rash or jaundice noted. Fransisco Shen MD Past Med/Surg History Medical History (Updated 07/02/21 @ 18:24 by Fransisco Shen MD) Anxiety Atrial fibrillation CHF (congestive heart failure) DIASTOLIC Chronic respiratory failure CKD (chronic kidney disease) STAGE III COPD (chronic obstructive pulmonary disease) "SEVERE" ON 3-4L CONTINUOUS COVID-19 Depression GERD (gastroesophageal reflux disease) Obesity Osteoarthritis Paroxysmal atrial fibrillation PFO (patent foramen ovale) Psoriasis Pulmonary nodules Raynauds syndrome Urinary incontinence Surgical History H/O foot surgery LEFT FOOT SURGERY History of cataract surgery RT/LEFT History of colonoscopy History of hysterectomy History of tonsillectomy History of tooth extraction Social History Smoking Status: Former smoker Second Hand Exposure: No; Do You Dip or Chew Tobacco: No; Tobacco Cessation Education Requested by Patient: No Hx Alcohol Use: Yes Alcohol type: wine Hx Substance Use: No Preferred Language: Bermudian Communication Ability: Effective Visual Impairment: No Limitations Production Floater Required: No Beliefs That Will Affect Care: None marital status: Single Current Living Situation: Personal Care Facility Current Living Situation Comment: lives at [facility] How many Children do You have: 0 Other Information That Helps Us Care for You: No Feels Safe at Home: Yes Safety Concerns: Feels Safe At This Time Assistive Devices: Oxygen - Continuous Allergies Allergies Allergy/AdvReac Type Severity Reaction Status Date / Time Penicillins Allergy Severe SWELLING Verified 07/23/20 10:36 OF TONGUE AND THROAT Home Meds Home Medications Medication Instructions Recorded Confirmed albuterol sulfate 90 mcg/actuation 2 puff INHALATION Q4H PRN 03/29/18 06/30/21 aerosol inhaler (Ventolin HFA) calcium carbonate 600 mg-vitamin 1 tab PO BID 03/29/18 06/30/21 D3 5 mcg (200 unit) capsule (Calcium 600 + D(3)) clobetasol 0.05 % topical cream 1 applic TOPICAL BID PRN 03/29/18 06/30/21 (Temovate) desonide 0.05 % topical cream 1 applic TOPICAL BID PRN 03/29/18 06/30/21 fluocinonide 0.05 % topical 1 applic TOPICAL DAILY PRN 03/29/18 06/30/21 solution hydrocortisone valerate 0.2 % 1 applic TOPICAL BID 03/29/18 06/30/21 topical cream lorazepam 0.5 mg tablet (Ativan) 0.5 mg PO BID PRN 03/29/18 06/30/21 magnesium oxide 400 mg PO BID 03/29/18 06/30/21 multivitamin 1 tab PO DAILY 03/29/18 06/30/21 pantoprazole 40 mg tablet,delayed 40 mg PO QAM 03/29/18 06/30/21 release (Protonix) sertraline 100 mg tablet 1.5 tab PO QAM 03/29/18 06/30/21 triamcinolone acetonide 0.1 % 1 applic TOPICAL DAILY PRN 03/29/18 06/30/21 topical ointment meclizine 25 mg tablet 25 mg PO TID PRN 07/06/18 06/30/21 fluticasone fur. 100 mcg-umeclid 1 inh INHALATION DAILY 08/17/18 06/30/21 62.5 mcg-vilant 25 mcg inhalat.powder (Trelegy Ellipta) fluticasone propionate 50 2 spray INTRANASAL DAILY 08/17/18 06/30/21 mcg/actuation nasal spray,suspension (Flonase Allergy Relief) ipratropium 0.5 mg-albuterol 3 mg 3 ml INHALATION QID 08/17/18 06/30/21 (2.5 mg base)/3 mL nebulization soln furosemide 20 mg tablet 20 mg PO BID 01/01/20 06/30/21 spironolactone 25 mg tablet 25 mg PO DAILY 01/01/20 06/30/21 (Aldactone) ferrous sulfate 325 mg (65 mg 325 mg PO BID 01/02/20 06/30/21 iron) tablet potassium chloride 10 mEq 10 meq PO DAILY 01/02/20 06/30/21 capsule,extended release warfarin 5 mg tablet 5 mg PO DIRECTED 01/27/20 06/30/21 doxycycline hyclate 100 mg capsule 100 mg PO BID 08/25/20 06/30/21 fexofenadine 60 mg tablet 60 mg PO DAILY 08/25/20 06/30/21 prednisone 20 mg tablet 20 mg PO BID 08/25/20 06/30/21 acetaminophen 325 mg tablet 650 mg PO QAM MDD 3G 06/15/21 06/30/21 acetaminophen 325 mg tablet 650 mg PO TID PRN MDD 3G 06/15/21 06/30/21 acetaminophen 650 mg rectal 650 mg MN Q4H PRN 06/15/21 06/30/21 suppository ammonium lactate 12 % topical cream 1 applic TOPICAL DAILY PRN 06/15/21 06/30/21 atropine 0.01 % eye drop emulsion See Rx Instructions .ROUTE .COMPLEX 06/15/21 06/30/21 fluocinonide 0.05 % topical 1 applic TOPICAL DAILY PRN 06/15/21 06/30/21 solution furosemide 40 mg tablet 40 mg PO BID 06/15/21 06/30/21 ipratropium 0.5 mg-albuterol 3 mg 3 ml INHALATION BID PRN 06/15/21 06/30/21 (2.5 mg base)/3 mL nebulization soln loperamide 2 mg capsule 2 mg PO DAILY PRN 06/15/21 06/30/21 lorazepam 1 mg tablet 1 mg SUBLINGUAL Q2H PRN 06/15/21 06/30/21 lorazepam 2 mg/mL oral concentrate 1 mg SUBLINGUAL Q2H PRN 06/15/21 06/30/21 polyethylene glycol 3350 17 17 g PO DAILY 06/15/21 06/30/21 gram/dose oral powder (Gavilax) Previous Rx's Medication Instructions Recorded lidocaine 4 % topical patch 1 patch TOPICAL DAILY #10 ea 02/09/20 tramadol 50 mg tablet 50 mg PO Q6H PRN #30 tab 02/09/20 Results & Data (ED) Vital Signs Vital Signs - 24 hr 06/30/21 08:15 06/30/21 08:30 06/30/21 09:00 Temperature 36.8 C Temperature Source Oral Pulse Rate 82 71 70 Pulse Rate from SpO2 Sensor 72 70 Pulse Rhythm Regular Pulse Strength Normal Respiratory Rate 16 18 29 H Respiratory Effort / Characteristics Non-Labored Spontaneous Respiratory Depth Normal Respiratory Pattern Regular Blood Pressure 124/50 L Blood Pressure Mean 74 Blood Pressure Position Lying Pulse Oximetry 97 98 96 Oxygen Delivery Method Nasal Cannula Oxygen Flow Rate 3 Sepsis Recent Fever Within 48 Hours No Sepsis New/Unexplained Change in Mental Status N/A Sepsis Action Taken by Nursing No Action Required 06/30/21 10:00 06/30/21 10:30 06/30/21 11:10 Temperature Temperature Source Pulse Rate 70 70 Pulse Rate from SpO2 Sensor 70 70 72 Pulse Rhythm Pulse Strength Respiratory Rate 28 H 26 H 23 Respiratory Effort / Characteristics Respiratory Depth Respiratory Pattern Blood Pressure 102/71 Blood Pressure Mean 81 Blood Pressure Position Pulse Oximetry 99 96 98 Oxygen Delivery Method Nasal Cannula Oxygen Flow Rate 3 Sepsis Recent Fever Within 48 Hours Sepsis New/Unexplained Change in Mental Status Sepsis Action Taken by Nursing 06/30/21 11:30 Temperature Temperature Source Pulse Rate 73 Pulse Rate from SpO2 Sensor 73 Pulse Rhythm Pulse Strength Respiratory Rate 23 Respiratory Effort / Characteristics Respiratory Depth Respiratory Pattern Blood Pressure Blood Pressure Mean Blood Pressure Position Pulse Oximetry 95 Oxygen Delivery Method Oxygen Flow Rate Sepsis Recent Fever Within 48 Hours Sepsis New/Unexplained Change in Mental Status Sepsis Action Taken by Nursing Laboratory Data Attestation: I reviewed the patient's lab results. Result diagrams: 07/02/21 07:58 07/02/21 07:58 Lab Results 06/30/21 06/30/21 06/30/21 Range/Units 08:00 08:40 08:40 WBC (4.8-10.8) K/uL RBC (4.2-5.4) M/uL Hgb (12.0-16.0) g/dL Hct (37-47) % MCV (80-100) fL MCH (25-34) pg MCHC (32-36) g/dL RDW Std Deviation (36.4-46.3) fL RDW Coeff of Daniela (11.5-14.5) % Plt Count (130-400) K/uL MPV (7.4-10.4) fL Immature Gran % (Auto) % Neut % (Auto) % Lymph % (Auto) % [place] % (Auto) % Eos % (Auto) % Baso % (Auto) % Neut # (Auto) (1.4-6.5) K/uL Lymph # (Auto) (1.2-3.4) K/uL [place] # (Auto) (0.11-0.59) K/uL Eos # (Auto) (0-0.5) K/uL Baso # (Auto) (0-0.2) K/uL Immature Gran # (Auto) (0.00-0.02) K/uL PT (9.0-12.0) Seconds INR (0.9-1.1) VBG pH (7.36-7.41) VBG pCO2 (38-50) mmHg VBG pO2 mmHg VBG HCO3 mmol/L VBG O2 Saturation % VBG Base Excess mEq/L Barometric Pressure mm/Hg Sodium 142 (136-145) mmol/L Potassium 3.3 L (3.5-5.1) mmol/L Chloride 99 (98-107) mmol/L Carbon Dioxide 36 H (21-32) mmol/L Anion Gap 7 (3-11) BUN 29 H (6-23) mg/dl Creatinine 1.27 H (0.6-1.2) mg/dl Est Cr Clr Drug Dosing 59.3 ml/min Est GFR ( Amer) 49.2 ml/min Est GFR (Non-Af Amer) 42.4 ml/min BUN/Creatinine Ratio 22.8 H (10-20) Glucose 172 H (70-99(Fasting)) mg/dl Lactate (0.4-2.0) mmol/L Calcium 8.3 L (8.5-10.1) mg/dl Phosphorus 2.5 (2.5-4.9) mg/dl Magnesium 1.9 (1.7-2.4) mg/dl Total Bilirubin 0.5 (0.2-1.0) mg/dl Direct Bilirubin 0.1 (0-0.2) mg/dl AST 15 (13-39) U/L ALT 23 (7-52) U/L Alkaline Phosphatase 104 (34-104) U/L Troponin I < 0.03 (0-0.04) ng/ml B-Natriuretic Peptide (0-100) pg/ml Total Protein 6.4 (6.0-8.3) gm/dl Albumin 3.9 (3.4-5.0) gm/dl Globulin 2.5 (2.5-4.0) gm/dl Albumin/Globulin Ratio 1.6 (0.9-2) Lipase 37 (11-82) U/L Procalcitonin 1.46 H (0-0.5) ng/ml SARS-CoV-2 (PCR) NEGATIVE (Negative) Influenza Type A (PCR) Negative (Neg) Influenza Type B (PCR) Negative (Neg) RSV (RT-PCR) Negative (Neg) 06/30/21 06/30/21 06/30/21 Range/Units 08:40 08:40 08:40 WBC 12.98 H (4.8-10.8) K/uL RBC 5.46 H (4.2-5.4) M/uL Hgb 15.0 (12.0-16.0) g/dL Hct 48.7 H (37-47) % MCV 89.2 (80-100) fL MCH 27.5 (25-34) pg MCHC 30.8 L (32-36) g/dL RDW Std Deviation 50.2 H (36.4-46.3) fL RDW Coeff of Daniela 15.6 H (11.5-14.5) % Plt Count 177 (130-400) K/uL MPV 10.4 (7.4-10.4) fL Immature Gran % (Auto) 0.3 % Neut % (Auto) 91.9 % Lymph % (Auto) 3.9 % Marathon % (Auto) 3.2 % Eos % (Auto) 0.7 % Baso % (Auto) 0.0 % Neut # (Auto) 11.93 H (1.4-6.5) K/uL Lymph # (Auto) 0.50 L (1.2-3.4) K/uL [place] # (Auto) 0.42 (0.11-0.59) K/uL Eos # (Auto) 0.09 (0-0.5) K/uL Baso # (Auto) 0.00 (0-0.2) K/uL Immature Gran # (Auto) 0.04 H (0.00-0.02) K/uL PT (9.0-12.0) Seconds INR (0.9-1.1) VBG pH (7.36-7.41) VBG pCO2 (38-50) mmHg VBG pO2 mmHg VBG HCO3 mmol/L VBG O2 Saturation % VBG Base Excess mEq/L Barometric Pressure mm/Hg Sodium (136-145) mmol/L Potassium (3.5-5.1) mmol/L Chloride (98-107) mmol/L Carbon Dioxide (21-32) mmol/L Anion Gap (3-11) BUN (6-23) mg/dl Creatinine (0.6-1.2) mg/dl Est Cr Clr Drug Dosing ml/min Est GFR ( Amer) ml/min Est GFR (Non-Af Amer) ml/min BUN/Creatinine Ratio (10-20) Glucose (70-99(Fasting)) mg/dl Lactate 1.3 (0.4-2.0) mmol/L Calcium (8.5-10.1) mg/dl Phosphorus (2.5-4.9) mg/dl Magnesium (1.7-2.4) mg/dl Total Bilirubin (0.2-1.0) mg/dl Direct Bilirubin (0-0.2) mg/dl AST (13-39) U/L ALT (7-52) U/L Alkaline Phosphatase (34-104) U/L Troponin I (0-0.04) ng/ml B-Natriuretic Peptide 34 (0-100) pg/ml Total Protein (6.0-8.3) gm/dl Albumin (3.4-5.0) gm/dl Globulin (2.5-4.0) gm/dl Albumin/Globulin Ratio (0.9-2) Lipase (11-82) U/L Procalcitonin (0-0.5) ng/ml SARS-CoV-2 (PCR) (Negative) Influenza Type A (PCR) (Neg) Influenza Type B (PCR) (Neg) RSV (RT-PCR) (Neg) 06/30/21 06/30/21 Range/Units 08:40 09:03 WBC (4.8-10.8) K/uL RBC (4.2-5.4) M/uL Hgb (12.0-16.0) g/dL Hct (37-47) % MCV (80-100) fL MCH (25-34) pg MCHC (32-36) g/dL RDW Std Deviation (36.4-46.3) fL RDW Coeff of Daniela (11.5-14.5) % Plt Count (130-400) K/uL MPV (7.4-10.4) fL Immature Gran % (Auto) % Neut % (Auto) % Lymph % (Auto) % Marathon % (Auto) % Eos % (Auto) % Baso % (Auto) % Neut # (Auto) (1.4-6.5) K/uL Lymph # (Auto) (1.2-3.4) K/uL [place] # (Auto) (0.11-0.59) K/uL Eos # (Auto) (0-0.5) K/uL Baso # (Auto) (0-0.2) K/uL Immature Gran # (Auto) (0.00-0.02) K/uL PT 25.6 H (9.0-12.0) Seconds INR 2.5 H (0.9-1.1) VBG pH 7.32 L (7.36-7.41) VBG pCO2 72 H (38-50) mmHg VBG pO2 26 mmHg VBG HCO3 36 mmol/L VBG O2 Saturation < 60.0 % VBG Base Excess 6.6 mEq/L Barometric Pressure 725.3 mm/Hg Sodium (136-145) mmol/L Potassium (3.5-5.1) mmol/L Chloride (98-107) mmol/L Carbon Dioxide (21-32) mmol/L Anion Gap (3-11) BUN (6-23) mg/dl Creatinine (0.6-1.2) mg/dl Est Cr Clr Drug Dosing ml/min Est GFR ( Amer) ml/min Est GFR (Non-Af Amer) ml/min BUN/Creatinine Ratio (10-20) Glucose (70-99(Fasting)) mg/dl Lactate (0.4-2.0) mmol/L Calcium (8.5-10.1) mg/dl Phosphorus (2.5-4.9) mg/dl Magnesium (1.7-2.4) mg/dl Total Bilirubin (0.2-1.0) mg/dl Direct Bilirubin (0-0.2) mg/dl AST (13-39) U/L ALT (7-52) U/L Alkaline Phosphatase (34-104) U/L Troponin I (0-0.04) ng/ml B-Natriuretic Peptide (0-100) pg/ml Total Protein (6.0-8.3) gm/dl Albumin (3.4-5.0) gm/dl Globulin (2.5-4.0) gm/dl Albumin/Globulin Ratio (0.9-2) Lipase (11-82) U/L Procalcitonin (0-0.5) ng/ml SARS-CoV-2 (PCR) (Negative) Influenza Type A (PCR) (Neg) Influenza Type B (PCR) (Neg) RSV (RT-PCR) (Neg) Administered Medications Albuterol (Albut/Ipratrop 3mg/0.5mg Neb 3 Ml Vial) 3 ml INH QIDR TERRANCE; Protocol Stop: 07/30/21 16:59 Last Admin: 07/02/21 15:52 Dose: 3 ml Documented by: [id number] Admin: 07/02/21 11:16 Dose: 3 ml Documented by: [id number] Admin: 07/02/21 07:18 Dose: Not Given Documented by: [id number] Admin: 07/01/21 19:24 Dose: 3 ml Documented by: [id number] Admin: 07/01/21 16:25 Dose: 3 ml Documented by: [id number] Admin: 07/01/21 11:27 Dose: 3 ml Documented by: [id number] Admin: 07/01/21 09:46 Dose: Not Given Documented by: [id number] Admin: 06/30/21 19:26 Dose: 3 ml Documented by: [id number] Admin: 06/30/21 15:31 Dose: 3 ml Documented by: [id number] Budesonide (Budesonide 0.5 Mg/2 Ml Vial (Pulmicort)) 0.5 mg NEB BIDR [facility] Stop: 07/30/21 18:59 Last Admin: 07/02/21 07:10 Dose: 0.5 mg Documented by: [id number] Admin: 07/01/21 19:24 Dose: 0.5 mg Documented by: [id number] Admin: 07/01/21 09:46 Dose: Not Given Documented by: [id number] Admin: 06/30/21 20:07 Dose: 0.5 mg Documented by: [id number] Fexofenadine HCl (Fexofenadine 60 Mg Tab) 60 mg PO DAILY [facility] Stop: 07/31/21 08:59 Last Admin: 07/02/21 10:02 Dose: 60 mg Documented by: [id number] Admin: 07/01/21 08:08 Dose: 60 mg Documented by: [id number] Fluticasone Propionate (Fluticasone Propionate Na Spr 16 Gm Btl) 2 sprays NA DAILY TERRANCE Stop: 07/31/21 08:59 Last Admin: 07/02/21 10:00 Dose: 2 sprays Documented by: [id number] Admin: 07/01/21 08:07 Dose: 2 sprays Documented by: [id number] Cefepime HCl 2,000 mg/ Syringe 20 mls @ 5 mls/min IV Q8H TERRANCE; Protocol Stop: 07/06/21 11:59 Last Admin: 07/02/21 12:30 Dose: 5 mls/min Documented by: [id number] Admin: 07/02/21 03:27 Dose: 5 mls/min Documented by: [id number] Admin: 07/01/21 21:22 Dose: 5 mls/min Documented by: [id number] Admin: 07/01/21 11:47 Dose: 5 mls/min Documented by: [id number] Lidocaine (Lidocaine 5% 1 Patch) 1 patch TD DAILY TERRANCE Stop: 07/31/21 08:59 Last Admin: 07/02/21 09:59 Dose: Not Given Documented by: [id number] Admin: 07/01/21 08:09 Dose: Not Given Documented by: [id number] Loperamide HCl (Loperamide Hcl 2 Mg Cap) 2 mg PO TID PRN PRN Reason: diarrhea Stop: 08/01/21 12:48 Last Admin: 07/02/21 17:58 Dose: 2 mg Documented by: [id number] Lorazepam (Lorazepam 1 Mg Tab) 1 mg SL TID PRN PRN Reason: Anxiety Stop: 07/30/21 15:18 Last Admin: 07/02/21 13:55 Dose: 1 mg Documented by: [id number] Admin: 07/01/21 23:36 Dose: 1 mg Documented by: [id number] Nystatin (Nystatin Susp 500,000 U/5 Ml Udc) 10 ml PO TID TERRANCE Stop: 07/11/21 08:59 Last Admin: 07/02/21 13:37 Dose: 10 ml Documented by: [id number] Admin: 07/02/21 10:00 Dose: 10 ml Documented by: [id number] Admin: 07/01/21 21:22 Dose: 10 ml Documented by: [id number] Admin: 07/01/21 14:21 Dose: 10 ml Documented by: [id number] Admin: 07/01/21 09:55 Dose: 10 ml Documented by: [id number] Ondansetron HCl (Ondansetron Inj 2 Mg/Ml 2 Ml Vial) 4 mg IV Q4 PRN PRN Reason: nausea Stop: 07/30/21 13:16 Last Admin: 07/02/21 10:10 Dose: 4 mg Documented by: [id number] Admin: 07/02/21 01:31 Dose: 4 mg Documented by: [id number] Admin: 07/01/21 14:26 Dose: 4 mg Documented by: [id number] Admin: 07/01/21 07:59 Dose: 4 mg Documented by: [id number] Admin: 06/30/21 20:23 Dose: 4 mg Documented by: [id number] Pantoprazole Sodium (Pantoprazole 40 Mg Tab) 40 mg PO QAM [facility] Stop: 07/31/21 08:59 Last Admin: 07/02/21 10:02 Dose: 40 mg Documented by: [id number] Admin: 07/01/21 08:09 Dose: 40 mg Documented by: [id number] Potassium Chloride (Potassium Chloride Crtab 20 Meq Tabcr) 40 meq PO BID TERRANCE Stop: 07/31/21 11:29 Last Admin: 07/02/21 10:00 Dose: 40 meq Documented by: [id number] Admin: 07/01/21 21:22 Dose: 40 meq Documented by: [id number] Admin: 07/01/21 11:47 Dose: 40 meq Documented by: [id number] Prednisone (Prednisone 20 Mg Tab) 20 mg PO DAILY [facility] Stop: 07/31/21 08:59 Last Admin: 07/02/21 10:01 Dose: 20 mg Documented by: [id number] Admin: 07/01/21 08:09 Dose: 20 mg Documented by: [id number] Sertraline HCl (Sertraline Hcl 50 Mg Tablet) [facility] [place] Stop: 07/31/21 08:59 Last Admin: 07/02/21 10:01 Dose: 150 mg Documented by: [id number] Admin: 07/01/21 08:10 Dose: 150 mg Documented by: [id number] Discontinued Medications Albuterol (Albut/Ipratrop 3mg/0.5mg Neb 3 Ml Vial) 3 ml NEB NOW STA; Protocol Stop: 06/30/21 08:16 Last Admin: 06/30/21 08:53 Dose: Not Given Documented by: [id number] Albuterol (Albut/Ipratrop 3mg/0.5mg Neb 3 Ml Vial) Confirm Administered Dose 3 ml .ROUTE .STK-MED ONE Stop: 06/30/21 15:28 Last Admin: 07/02/21 03:35 Dose: Not Given Documented by: [id number] Dexamethasone Sodium Phosphate (DexamethasonePf 10 Mg/Ml Vial) 10 mg IV NOW ONE Stop: 06/30/21 08:16 Last Admin: 06/30/21 08:53 Dose: 10 mg Documented by: [id number] Formoterol Fumarate (Formoterol 20 Mcg/2 Ml Vial) 20 mcg NEB BID TERRANCE Stop: 07/30/21 20:59 Last Admin: 07/02/21 07:11 Dose: 20 mcg Documented by: [id number] Admin: 07/01/21 19:25 Dose: 20 mcg Documented by: [id number] Admin: 07/01/21 09:46 Dose: Not Given Documented by: [id number] Admin: 06/30/21 20:07 Dose: 20 mcg Documented by: [id number] Guaifenesin (Guaifenesin 600 Mg Tabcr) 600 mg PO NOW STA Stop: 06/30/21 08:16 Last Admin: 06/30/21 08:53 Dose: 600 mg Documented by: [id number] Sodium Chloride (Nss) 500 mls @ 999 mls/hr IV .Q31M ONE Stop: 06/30/21 08:47 Last Infusion: 06/30/21 09:30 Dose: 0 mls/hr Documented by: [id number] Admin: 06/30/21 08:53 Dose: 999 mls/hr Documented by: [id number] Sodium Chloride (Nss) 500 mls @ 999 mls/hr IV .Q31M ONE Stop: 06/30/21 12:24 Last Infusion: 06/30/21 12:33 Dose: 0 mls/hr Documented by: [id number] Admin: 06/30/21 12:03 Dose: 999 mls/hr Documented by: [id number] Cefepime HCl (Maxipime) 2,000 mg in 20 mls @ 5 mls/min IV NOW STA; Protocol Stop: 06/30/21 12:15 Last Admin: 06/30/21 12:43 Dose: 5 mls/min Documented by: [id number] Potassium Chloride (K [place] / Wtr) 10 meq in 100 mls @ 100 mls/hr IV Q1H STA; Protocol Stop: 06/30/21 14:16 Last Infusion: 06/30/21 15:50 Dose: 0 mls/hr Documented by: [id number] Admin: 06/30/21 14:47 Dose: 100 mls/hr Documented by: [id number] Sodium Chloride (Nss) 500 mls @ 80 mls/hr IV .Q6H15M [facility] Stop: 07/31/21 13:14 Last Admin: 07/02/21 05:59 Dose: Not Given Documented by: [id number] Infusion: 07/02/21 05:59 Dose: 0 mls/hr Documented by: [id number] Admin: 07/02/21 00:37 Dose: 80 mls/hr Documented by: [id number] Infusion: 07/02/21 00:15 Dose: 80 mls/hr Documented by: [id number] Admin: 07/01/21 18:00 Dose: 80 mls/hr Documented by: [id number] Infusion: 07/01/21 17:57 Dose: 0 mls/hr Documented by: [id number] Admin: 07/01/21 11:39 Dose: 80 mls/hr Documented by: [id number] Infusion: 07/01/21 11:39 Dose: 0 mls/hr Documented by: [id number] Admin: 07/01/21 05:16 Dose: 80 mls/hr Documented by: [id number] Infusion: 07/01/21 04:54 Dose: 80 mls/hr Documented by: [id number] Admin: 06/30/21 22:39 Dose: 80 mls/hr Documented by: [id number] Infusion: 06/30/21 20:59 Dose: 80 mls/hr Documented by: [id number] Admin: 06/30/21 14:44 Dose: 80 mls/hr Documented by: [id number] Cefepime HCl 2,000 mg/ Syringe 20 mls @ 5 mls/min IV Q12H TERRANCE; Protocol Stop: 07/02/21 00:00 Last Admin: 07/01/21 00:12 Dose: 5 mls/min Documented by: [id number] Potassium Chloride (K [place] / Wtr) 10 meq in 100 mls @ 100 mls/hr IV Q1H TERRANCE; Protocol Stop: 07/01/21 13:59 Last Infusion: 07/01/21 16:38 Dose: 0 mls/hr Documented by: [id number] Admin: 07/01/21 13:53 Dose: 100 mls/hr Documented by: [id number] Infusion: 07/01/21 12:53 Dose: 0 mls/hr Documented by: [id number] Admin: 07/01/21 11:53 Dose: 100 mls/hr Documented by: [id number] Loperamide HCl (Loperamide Hcl 2 Mg Cap) 2 mg PO NOW STA Stop: 07/01/21 05:08 Last Admin: 07/01/21 05:21 Dose: 2 mg Documented by: [id number] Ondansetron HCl (Ondansetron Inj 2 Mg/Ml 2 Ml Vial) 4 mg IV NOW STA Stop: 06/30/21 08:18 Last Admin: 06/30/21 08:53 Dose: 4 mg Documented by: [id number] Warfarin Sodium (Warfarin Sod 5 Mg Tab) 5 mg PO DAILY@1600 TERRANCE Stop: 07/30/21 15:59 Last Admin: 06/30/21 15:51 Dose: 5 mg Documented by: [id number] Imaging Data Radiologist's Impression: Chest X-Ray 06/30/21 08:13 XR chest 1V portable CLINICAL HISTORY: Atypical chest pain. COMPARISON STUDY: Chest radiograph June 15, 2021. FINDINGS: Lung volumes are normal. No pneumothorax or pleural effusion is present. Cardiomegaly is unchanged. Left subclavian pacer is in place. No evidence for pulmonary edema. No consolidation to suggest pneumonia. Linear left basilar opacity reflects atelectasis. IMPRESSION: No acute cardiopulmonary findings. Cardiomegaly. ACT 112: Negative or not required by law. Electronically signed by: Markie Zhao M.D. 06/30/2021 9:52 AM Discharge Plan Visit Data Chief Complaint: GI Assessment Stated Complaint: NAUSEA, VOMITING, DIARRHEA, SOB ED Provider: Fransisco Shen Discharge Problem: Acute on chronic respiratory failure with hypercapnia, COPD exacerbation, Gastroenteritis, Leukocytosis Patient Disposition: Admitted As Inpatient Discharge Instructions Interventions: ED Discharge Assessment Last Done: 06/30/21 14:33
[2021-06-30 08:58] LABS: Eosinophils # (auto) 0.09 K/uL (0-0.5); Eosinophils % (auto) 0.7 %; Hematocrit (blood only) 48.7 % (37-47); Immature Granulocytes # (auto) 0.04 K/uL (0.00-0.02); Immature Granulocytes % (auto) 0.3 %; Lymphocytes % (auto) 3.9 %; Mean Corpuscular Hemoglobin 27.5 pg (25-34); Mean Corpuscular Hgb Conc 30.8 g/dL (32-36); Mean Corpuscular Volume 89.2 fL (80-100); Mean Platelet Volume 10.4 fL (7.4-10.4); Monocytes # (auto) 0.42 K/uL (0.11-0.59); Monocytes % (auto) 3.2 %; Neutrophils # (auto) 11.93 K/uL (1.4-6.5); Neutrophils % (auto) 91.9 %; Platelet Count 177 K/uL (130-400); RDW Coefficient of Variation 15.6 % (11.5-14.5); RDW Standard Deviation 50.2 fL (36.4-46.3); Red Blood Count 5.46 M/uL (4.2-5.4); White Blood Count 12.98 K/uL (4.8-10.8)
[2021-06-30 09:08] LABS: INR 2.5 (0.9-1.1); Prothrombin Time 25.6 Seconds (9.0-12.0)
[2021-06-30 09:22] LABS: Alanine Aminotransferase 23 U/L (7-52); Albumin Globulin Ratio 1.6 (0.9-2); Albumin Level 3.9 gm/dl (3.4-5.0); Alkaline Phosphatase 104 U/L (34-104); Anion Gap 7 (3-11); Aspartate Aminotransferase 15 U/L (13-39); BUN Creatinine Ratio 22.8 (10-20); Bilirubin Direct 0.1 mg/dl (0-0.2); Bilirubin,Total 0.5 mg/dl (0.2-1.0); Blood Urea Nitrogen 29 mg/dl (6-23); Calcium 8.3 mg/dl (8.5-10.1); Carbon Dioxide 36 mmol/L (21-32); Chloride 99 mmol/L (98-107); Creatinine Clr Calc Pharmacy 59.3 ml/min; Est GFR (African American) 49.2 ml/min; Est GFR (Non-African American) 42.4 ml/min; Globulin 2.5 gm/dl (2.5-4.0); Glucose 172 mg/dl (70-99(Fasting)); Lipase 37 U/L (11-82); Magnesium 1.9 mg/dl (1.7-2.4); Phosphorus 2.5 mg/dl (2.5-4.9); Potassium 3.3 mmol/L (3.5-5.1); Sodium 142 mmol/L (136-145); Total Protein 6.4 gm/dl (6.0-8.3)
[2021-06-30 09:23] LABS: Base Excess VBG 6.6 mEq/L; HCO3 VBG 36 mmol/L; PCO2 VBG 72 mmHg (38-50); PO2 VBG 26 mmHg; pH VBG 7.32 (7.36-7.41)
[2021-06-30 09:24] LABS: Troponin I < 0.03 ng/ml (0-0.04)
[2021-06-30 09:34] LABS: Oxygen Saturation VBG < 60.0 %
[2021-06-30 09:36] LABS: Influenza A virus by PCR Negative (Neg); Influenza B virus by PCR Negative (Neg); RSV by PCR Negative (Neg); SARS CoV2 RNA(COVID-19) InHosp NEGATIVE (Negative)
--- NOTE | 2021-06-30 09:55 | XRay Report ---
XR chest 1V portable CLINICAL HISTORY: Atypical chest pain. COMPARISON STUDY: Chest radiograph June 15, 2021. FINDINGS: Lung volumes are normal. No pneumothorax or pleural effusion is present. Cardiomegaly is un changed. Left subclavian pacer is in place. No evidence for pulmonary edema. No consolidation to sugg est pneumonia. Linear left basilar opacity reflects atelectasis. IMPRESSION: No acute cardiopulmonary findings. Cardiomegaly. ACT 112: Negative or not required by law. Electronically signed by: Markie Zhao M.D. 06/30/2021 9:52 AM
[2021-06-30] MEDS ORDERED: CEFEPIME 2,000 MG/20 ML VIAL IV STA (12:12)
--- NOTE | 2021-06-30 13:03 | History & Physical Report ---
Date of Service June 30, 2021 Assessment & Plan (1) Vomiting and diarrhea: (2) COPD (chronic obstructive pulmonary disease): (3) Chronic respiratory failure with hypoxia: (4) Permanent atrial fibrillation: (5) Hypokalemia: (6) Chronic diastolic CHF (congestive heart failure): Plan: 70 year old female with history of COPD with chronic hypoxemic respiratory failure on 4 L oxygen, permanent atrial fibrillation on coumadin, chronic diastolic CHF on lasix and aldactone, who presented to the ED from [facility] with vomiting and diarrhea since 2 am Vomiting diarrhea- unclear etiology, possible viral gastroenteritis. Abdomen benign. no fever but chills with mild leucocytosis and elevated procalcitonin. LFTs negative, Lipase normal. lactate normal. Denies recent antibiotic use or sick contacts. - Check C diff and stool studies to rule out infectious etiology - Continue IVF, antiemetic prn. If stool studies negative, immodium prn - If no improvement, will consult GI and consider CT A/P - Clear liquid diet as tolerated - Continue empiric antibiotics for now until sepsis ruled out with blood and stool clx resulted given chills, elevated procal and leucocytosis (although leucocytosis could be from steroids). Hypokalemia- Repleted, rehceck in am COPD with chronic hypoxic respiratory failure- Recent exacerbation, on prednisone, will continue to taper. continue doxy. Continue nebs. continue home oxygen, at 3L which is at baseline. Chronic diastolic CHF- hold home lasix aldactone in setting of diarrhea, vomiting and dehydration. Resume when indicated. Continue daily weight, I and Os. Permanent atrial fibrillation- rate controlled, continue coumadin INR therapeutic Dispo- Medsurg with telemetry Code- Full code but does not want too aggressive DVT prophylaxis- coumadin History of Present Illness Chief Complaint: Vomiting, Diarrhea Primary Care Provider: [employer], [facility] 70 year old female with history of COPD with chronic hypoxemic respiratory failure on 4 L oxygen, permanent atrial fibrillation on coumadin, chronic diastolic CHF on lasix and aldactone, who presented to the ED from [facility] with vomiting and diarrhea since 2 am. She is being treated for COPD exacerbation with prednisone burst and solumedrol over the past few weeks and states it is improving but denies any antibiotic use. No GI symptoms prior to 2 am. Denies any fever but has chills, Unable to tolerate anything down, had multiple episodes of vomiting and diarrhea since then, even imodium did not help. No abdominal pain whatsover. No bleeding. No sick contacts. Denies any unusual food intake. Denies any history of C diff. Breathing is closer to baseline per patient. In the ED, afebrile, hemodynamically stable. Dry and given IVF. Labs reviewed, with leucocytosis and elevated procal with chills, started on empiric antibiotics. Given dexamethasone and nebs. Hospitalist service was consulted for admission. Patient sick looking during my encounter, still looks dry. Allergies Allergy/AdvReac Type Severity Reaction Status Date / Time Penicillins Allergy Severe SWELLING Verified 07/23/20 10:36 OF TONGUE AND THROAT Home Medications Medication Instructions Recorded Confirmed Type albuterol sulfate 90 mcg/actuation 2 puff INHALATION Q4H PRN 03/29/18 06/30/21 History aerosol inhaler (Ventolin HFA) calcium carbonate 600 mg-vitamin 1 tab PO BID 03/29/18 06/30/21 History D3 5 mcg (200 unit) capsule (Calcium 600 + D(3)) clobetasol 0.05 % topical cream 1 applic TOPICAL BID PRN 03/29/18 06/30/21 History (Temovate) desonide 0.05 % topical cream 1 applic TOPICAL BID PRN 03/29/18 06/30/21 History fluocinonide 0.05 % topical 1 applic TOPICAL DAILY PRN 03/29/18 06/30/21 History solution hydrocortisone valerate 0.2 % 1 applic TOPICAL BID 03/29/18 06/30/21 History topical cream lorazepam 0.5 mg tablet (Ativan) 0.5 mg PO BID PRN 03/29/18 06/30/21 History magnesium oxide 400 mg PO BID 03/29/18 06/30/21 History multivitamin 1 tab PO DAILY 03/29/18 06/30/21 History pantoprazole 40 mg tablet,delayed 40 mg PO QAM 03/29/18 06/30/21 History release (Protonix) sertraline 100 mg tablet 1.5 tab PO QAM 03/29/18 06/30/21 History triamcinolone acetonide 0.1 % 1 applic TOPICAL DAILY PRN 03/29/18 06/30/21 History topical ointment meclizine 25 mg tablet 25 mg PO TID PRN 07/06/18 06/30/21 History fluticasone fur. 100 mcg-umeclid 1 inh INHALATION DAILY 08/17/18 06/30/21 History 62.5 mcg-vilant 25 mcg inhalat.powder (Trelegy Ellipta) fluticasone propionate 50 2 spray INTRANASAL DAILY 08/17/18 06/30/21 History mcg/actuation nasal spray,suspension (Flonase Allergy Relief) ipratropium 0.5 mg-albuterol 3 mg 3 ml INHALATION QID 08/17/18 06/30/21 History (2.5 mg base)/3 mL nebulization soln furosemide 20 mg tablet 20 mg PO BID 01/01/20 06/30/21 History spironolactone 25 mg tablet 25 mg PO DAILY 01/01/20 06/30/21 History (Aldactone) ferrous sulfate 325 mg (65 mg 325 mg PO BID 01/02/20 06/30/21 History iron) tablet potassium chloride 10 mEq 10 meq PO DAILY 01/02/20 06/30/21 History capsule,extended release warfarin 5 mg tablet 5 mg PO DIRECTED 01/27/20 06/30/21 History lidocaine 4 % topical patch 1 patch TOPICAL DAILY #10 ea 02/09/20 06/30/21 Rx tramadol 50 mg tablet 50 mg PO Q6H PRN #30 tab 02/09/20 06/30/21 Rx doxycycline hyclate 100 mg capsule 100 mg PO BID 08/25/20 06/30/21 History fexofenadine 60 mg tablet 60 mg PO DAILY 08/25/20 06/30/21 History prednisone 20 mg tablet 20 mg PO BID 08/25/20 06/30/21 History acetaminophen 325 mg tablet 650 mg PO QAM MDD 3G 06/15/21 06/30/21 History acetaminophen 325 mg tablet 650 mg PO TID PRN MDD 3G 06/15/21 06/30/21 History acetaminophen 650 mg rectal 650 mg PA Q4H PRN 06/15/21 06/30/21 History suppository ammonium lactate 12 % topical cream 1 applic TOPICAL DAILY PRN 06/15/21 06/30/21 History atropine 0.01 % eye drop emulsion See Rx Instructions .ROUTE .COMPLEX 06/15/21 06/30/21 History fluocinonide 0.05 % topical 1 applic TOPICAL DAILY PRN 06/15/21 06/30/21 History solution furosemide 40 mg tablet 40 mg PO BID 06/15/21 06/30/21 History ipratropium 0.5 mg-albuterol 3 mg 3 ml INHALATION BID PRN 06/15/21 06/30/21 History (2.5 mg base)/3 mL nebulization soln loperamide 2 mg capsule 2 mg PO DAILY PRN 06/15/21 06/30/21 History lorazepam 1 mg tablet 1 mg SUBLINGUAL Q2H PRN 06/15/21 06/30/21 History lorazepam 2 mg/mL oral concentrate 1 mg SUBLINGUAL Q2H PRN 06/15/21 06/30/21 History polyethylene glycol 3350 17 17 g PO DAILY 06/15/21 06/30/21 History gram/dose oral powder (Gavilax) Past Med/Surg History Medical History (Updated 06/30/21 @ 12:52 by Noel Kurtz MD) Anxiety Atrial fibrillation CHF (congestive heart failure) DIASTOLIC Chronic respiratory failure CKD (chronic kidney disease) STAGE III COPD (chronic obstructive pulmonary disease) "SEVERE" ON 3-4L CONTINUOUS COVID-19 Depression GERD (gastroesophageal reflux disease) Obesity Osteoarthritis Paroxysmal atrial fibrillation PFO (patent foramen ovale) Psoriasis Pulmonary nodules Raynauds syndrome Urinary incontinence Surgical History H/O foot surgery LEFT FOOT SURGERY History of cataract surgery RT/LEFT History of colonoscopy History of hysterectomy History of tonsillectomy History of tooth extraction Social History Smoking Status: Former smoker Second Hand Exposure: No; Hx Alcohol Use: Yes Alcohol type: wine Hx Substance Use: No Preferred Language: Lao Communication Ability: Effective Visual Impairment: No Limitations Subcontract Administrator Required: No Beliefs That Will Affect Care: None marital status: Current Living Situation: Alone Current Living Situation Comment: [facility] How many Children do You have: 0 Feels Safe at Home: Yes Assistive Devices: Denture - Upper, Denture - Lower, Glasses, Oxygen - Continuous and Walker Physical Exam Physical Exam: General: Lying in bed, not in distress, on 3 L NC which is her baseline HEENT: EOMI, CONTRERAS, dry oral mucosa Chest: Fair breath sounds bilaterally with no crackles but mild end expiratory wheezes CVS: Irregular rhythm, normal heart sounds, no murmur Abdomen: Soft, non tender, not distended, normal bowel sounds Neuro: Awake, alert, oriented, conversing well, non focal Extremities: No cyanosis, clubbing or edema Results & Data Results & Data ([facility]) Vital Signs (Past 12 Hours) Vital Signs Temp Pulse Resp BP Pulse Ox 06/30/21 11:30 73 23 95 06/30/21 11:10 23 102/71 98 06/30/21 10:30 70 26 H 96 06/30/21 10:00 70 28 H 99 06/30/21 09:00 70 29 H 96 06/30/21 08:30 71 18 98 06/30/21 08:15 36.8 C 82 16 124/50 L 97 Laboratory Results Short CBC 06/30/21 Range/Units 08:40 WBC 12.98 H (4.8-10.8) K/uL Hgb 15.0 (12.0-16.0) g/dL Hct 48.7 H (37-47) % Plt Count 177 (130-400) K/uL BMP 06/30/21 08:40 Sodium 142 Potassium 3.3 L Chloride 99 Carbon Dioxide 36 H BUN 29 H Creatinine 1.27 H Glucose 172 H Calcium 8.3 L Cardiac Enzymes 06/30/21 Range/Units 08:40 Troponin I < 0.03 (0-0.04) ng/ml Liver Function 06/30/21 Range/Units 08:40 Total Bilirubin 0.5 (0.2-1.0) mg/dl Direct Bilirubin 0.1 (0-0.2) mg/dl AST 15 (13-39) U/L ALT 23 (7-52) U/L Alkaline Phosphatase 104 (34-104) U/L Albumin 3.9 (3.4-5.0) gm/dl Diagnostic Findings Chest X-Ray 06/30/21 08:13 XR chest 1V portable CLINICAL HISTORY: Atypical chest pain. COMPARISON STUDY: Chest radiograph June 15, 2021. FINDINGS: Lung volumes are normal. No pneumothorax or pleural effusion is present. Cardiomegaly is unchanged. Left subclavian pacer is in place. No evidence for pulmonary edema. No consolidation to suggest pneumonia. Linear left basilar opacity reflects atelectasis. IMPRESSION: No acute cardiopulmonary findings. Cardiomegaly. ACT 112: Negative or not required by law. Electronically signed by: Markie Zhao M.D. 06/30/2021 9:52 AM (1) COPD (chronic obstructive pulmonary disease) COPD type: unspecified COPD Qualified Code(s): J44.9 - Chronic obstructive pulmonary disease, unspecified
[2021-06-30] MEDS ORDERED: POTASSIUM CHLORIDE / WTR 10 MEQ/100 ML PLCT IV STA (13:17)
[2021-06-30] MEDS ORDERED: traMADol HCL 50 MG TABLET PO PRN (14:34)
[2021-06-30] MEDS ORDERED: ACETAMINOPHEN 325 MG TAB PO PRN (14:34)
[2021-06-30] MEDS ORDERED: ALBUTEROL HFA 8 GM INHALER INH PRN (14:34)
[2021-06-30] MEDS: SODIUM CHLORIDE 0.9% 500 ML IV SCH ×2 (14:44→22:39)
[2021-06-30] MEDS ORDERED: ALBUT/IPRATROP 3MG/0.5MG NEB 3 ML VIAL ONE (15:27)
[2021-06-30 15:31] LABS: Appearance Urine Clear (Clear); Bacteria Urine Automated Negative (Negative); Bilirubin Urine Negative (Negative); Blood Urine 1+ (Negative); Color Urine Yellow; Epithelial Cell Urine Auto 20-30 /lpf (0-5); Glucose Urine UA Negative (Negative); Ketones Urine Trace (Negative); Leukocyte Esterase Urine 1+ (Negative); Nitrite Urine Negative (Negative); Protein Urine Trace (Negative); Specific Gravity Urine 1.027 (1.000-1.030); Urobilinogen Urine Negative (Negative); pH Urine 5.5 (4.5-7.5)
[2021-06-30] MEDS: ALBUT/IPRATROP 3MG/0.5MG NEB 3 ML VIAL INH SCH ×2 (15:31→19:26)
[2021-06-30 15:39] LABS: RBC Urine Automated 0-4 /hpf (0-4)
[2021-06-30] MEDS ORDERED: WARFARIN SOD 5 MG TAB PO SCH (16:00)
[2021-06-30 18:41] LABS: Adenovirus F 40/41 PCR Not Detected (NotDetected); Astrovirus PCR Not Detected (NotDetected); Campylobacter PCR Not Detected (NotDetected); Clostridium diff Toxin A/B PCR Not Detected (NotDetected); Cryptosporidium PCR Not Detected (NotDetected); Cyclospora cayetanensis PCR Not Detected (NotDetected); Entamoeba histolytica PCR Not Detected (NotDetected); Enteroaggregative E.coli(EAEC) Not Detected (NotDetected); Enteropathogenic E.coli (EPEC) Not Detected (NotDetected); Enterotoxigenic E.coli (ETEC) Not Detected (NotDetected); Giardia lamblia PCR Not Detected (NotDetected); Plesiomonas shigelloides PCR Not Detected (NotDetected); Rotavirus A PCR Not Detected (NotDetected); Salmonella PCR Not Detected (NotDetected); Sapovirus PCR Not Detected (NotDetected); Shiga-like Toxin E.coli (STEC) Not Detected (NotDetected); Shigella/Enteroinvasive E.coli Not Detected (NotDetected); Vibrio cholerae PCR Not Detected (NotDetected); Vibrio species PCR Not Detected (NotDetected); Yersinia enterocolitica PCR Not Detected (NotDetected)
[2021-06-30 18:44] LABS: Norovirus GI/GII PCR DETECTED (NotDetected)
[2021-06-30] MEDS: BUDESONIDE 0.5 MG/2 ML VIAL (PULMICORT) NEB SCH (20:07)
[2021-06-30] MEDS: FORMOTEROL 20 MCG/2 ML VIAL NEB SCH (20:07)
[2021-06-30] MEDS: ONDANSETRON INJ 2 MG/ML 2 ML VIAL IV PRN (20:23)
[2021-06-30] MEDS ORDERED: CEFEPIME 1,000 MG in SYRINGE 0 ML IV SCH (21:00)
[2021-07-01] MEDS ORDERED: CEFEPIME 2,000 MG in SYRINGE 0 ML IV SCH
[2021-07-01] MEDS ORDERED: LOPERAMIDE HCL 2 MG CAP PO STA (05:07)
[2021-07-01] MEDS: SODIUM CHLORIDE 0.9% 500 ML IV SCH ×3 (05:16→18:00)
[2021-07-01 07:25] LABS: Basophils # (auto) 0.01 K/uL (0-0.2); Basophils % (auto) 0.1 %; Eosinophils # (auto) 0.01 K/uL (0-0.5); Eosinophils % (auto) 0.1 %; Hemoglobin 13.4 g/dL (12.0-16.0); Immature Granulocytes # (auto) 0.01 K/uL (0.00-0.02); Immature Granulocytes % (auto) 0.1 %; Lymphocytes # (auto) 0.24 K/uL (1.2-3.4); Lymphocytes % (auto) 2.6 %; Mean Corpuscular Hemoglobin 27.1 pg (25-34); Mean Corpuscular Hgb Conc 31.2 g/dL (32-36); Mean Platelet Volume 10.2 fL (7.4-10.4); Monocytes # (auto) 0.56 K/uL (0.11-0.59); Monocytes % (auto) 6.2 %; Neutrophils # (auto) 8.27 K/uL (1.4-6.5); Neutrophils % (auto) 90.9 %; Platelet Count 136 K/uL (130-400); RDW Coefficient of Variation 15.8 % (11.5-14.5); RDW Standard Deviation 50.2 fL (36.4-46.3); Red Blood Count 4.94 M/uL (4.2-5.4)
[2021-07-01 07:43] LABS: INR 5.2 (0.9-1.1); Prothrombin Time 50.7 Seconds (9.0-12.0)
[2021-07-01 07:51] LABS: BUN Creatinine Ratio 22.8 (10-20); Calcium 7.9 mg/dl (8.5-10.1); Creatinine Clr Calc Pharmacy 66.1 ml/min; Est GFR (Non-African American) 48.3 ml/min; Phosphorus 3.5 mg/dl (2.5-4.9)
[2021-07-01] MEDS: ONDANSETRON INJ 2 MG/ML 2 ML VIAL IV PRN ×2 (07:59→14:26)
[2021-07-01] MEDS: FLUTICASONE PROPIONATE NA SPR 16 GM BTL SCH (08:07)
[2021-07-01] MEDS: FEXOFENADINE 60 MG TAB PO SCH (08:08)
[2021-07-01] MEDS: LIDOCAINE 5% 1 PATCH TD SCH (08:09)
[2021-07-01] MEDS: predniSONE 20 MG TAB PO SCH (08:09)
[2021-07-01] MEDS: PANTOprazole 40 MG TAB PO SCH (08:09)
[2021-07-01] MEDS: SERTRALINE HCL 50 MG TABLET PO SCH (08:10)
[2021-07-01] MEDS: FORMOTEROL 20 MCG/2 ML VIAL NEB SCH ×2 (09:46→19:25)
[2021-07-01] MEDS: ALBUT/IPRATROP 3MG/0.5MG NEB 3 ML VIAL INH SCH ×4 (09:46→19:24)
[2021-07-01] MEDS: BUDESONIDE 0.5 MG/2 ML VIAL (PULMICORT) NEB SCH ×2 (09:46→19:24)
[2021-07-01] MEDS: NYSTATIN SUSP 500,000 U/5 ML UDC PO SCH ×3 (09:55→21:22)
[2021-07-01] MEDS: CEFEPIME 2,000 MG in SYRINGE 0 ML IV SCH ×2 (11:47→21:22)
[2021-07-01] MEDS: POTASSIUM CHLORIDE CRTAB 20 MEQ TABCR PO SCH ×2 (11:47→21:22)
[2021-07-01] MEDS: POTASSIUM CHLORIDE / WTR 10 MEQ/100 ML PLCT IV SCH ×2 (11:53→13:53)
--- NOTE | 2021-07-01 14:01 | Hospitalist Progress Note ---
Date of Service July 01, 2021 Assessment & Plan (1) Enteritis due to Norovirus: (2) COPD (chronic obstructive pulmonary disease): (3) Chronic respiratory failure with hypoxia: (4) Permanent atrial fibrillation: (5) Hypokalemia: (6) Chronic diastolic CHF (congestive heart failure): (7) Supratherapeutic INR: Plan: 70 year old female with history of COPD with chronic hypoxemic respiratory failure on 4 L oxygen, permanent atrial fibrillation on coumadin, chronic diastolic CHF on lasix and aldactone, who presented to the ED from [facility] with vomiting and diarrhea since 2 am Vomiting diarrhea due to norovirus gastroenteritis- Stool studies negative except for norovirus. Vomiting resolved, still with watery diarrhea multiple episodes. Symptomatic management-continue IVF, tolerating clears, will advance diet. Antiemetics prn. If continues to have significant diarrhea, prn imodium. Elevated procalcitonin- Given chills, leucocytosis and persistently elevated procal, continue empiric antibiotics for now until sepsis ruled out definiti vely- final blood clx pending. Hypokalemia- Repleted, recheck in am COPD with chronic hypoxic respiratory failure- Recent exacerbation now seems resolved, on prednisone, will continue to taper. Continue nebs. continue home oxygen, at 3L which is at baseline. oral thrush- due to inhalers/steroids- continue nystatin swish and swallow Chronic diastolic CHF- hold home lasix aldactone in setting of diarrhea, vomiting and dehydration. Resume when indicated. Continue daily weight, I and Os. Permanent atrial fibrillation- rate controlled, On coumadin INR supratherapeutic today at 5.9- hold further coumadin until INR drops down- no bleeding, no reversal needed. Dispo- Pending improvement in diarrhea aDVT prophylaxis- coumadin Admission and Anticipated Discharge Date Admission Date: June 30, 2021 Physical Exam Physical Exam: General: Lying in bed, not in distress, on 3 L NC which is her baseline HEENT: EOMI, CONTRERAS, dry oral mucosa Chest: Fair breath sounds bilaterally with no crackles or wheezes CVS: Irregular rhythm, normal heart sounds, no murmur Abdomen: Soft, non tender, not distended, normal bowel sounds Neuro: Awake, alert, oriented, conversing well, non focal Extremities: No cyanosis, clubbing or edema Results & Data Results & Data ([facility]) Vital Signs (Past 12 Hours) Vital Signs Temp Pulse Pulse Pulse Pulse Resp BP 07/01/21 11:29 72 18 07/01/21 10:45 37.0 C 72 18 112/67 07/01/21 07:50 36.9 C 71 17 168/90 H 07/01/21 06:30 70 07/01/21 03:25 37.1 C 71 20 129/75 Pulse Ox 07/01/21 11:29 96 07/01/21 10:45 97 07/01/21 07:50 96 07/01/21 06:30 07/01/21 03:25 95 Laboratory Results Short CBC 07/01/21 Range/Units 07:08 WBC 9.10 (4.8-10.8) K/uL Hgb 13.4 (12.0-16.0) g/dL Hct 43.0 (37-47) % Plt Count 136 (130-400) K/uL BMP 07/01/21 07:08 Sodium 140 Potassium 3.0 L Chloride 104 Carbon Dioxide 29 BUN 26 H Creatinine 1.14 Glucose 113 H Calcium 7.9 L Urine 06/30/21 Range/Units 15:21 Urine Color Yellow Urine Appearance Clear (Clear) Urine pH 5.5 (4.5-7.5) Ur Specific [place] 1.027 (1.000-1.030) Urine Protein Trace H (Negative) Urine Glucose (UA) Negative (Negative) Medications Administered Current Inpatient Medications Acetaminophen (Acetaminophen 325 Mg Tab) 650 mg PO TID PRN PRN Reason: Fever Or Pain Stop: 07/30/21 14:33 Albuterol (Albut/Ipratrop 3mg/0.5mg Neb 3 Ml Vial) 3 ml INH QIDR TERRANCE; Protocol Stop: 07/30/21 16:59 Last Admin: 07/01/21 11:27 Dose: 3 ml Documented by: Albuterol (Albuterol Hfa 8 Gm Inhaler) 2 puffs INH Q4R PRN PRN Reason: Shortness Of Breath Or Wheezing Stop: 07/30/21 14:33 Budesonide (Budesonide 0.5 Mg/2 Ml Vial (Pulmicort)) 0.5 mg NEB BIDR TERRANCE Stop: 07/30/21 18:59 Last Admin: 07/01/21 09:46 Dose: Not Given Documented by: Fexofenadine HCl (Fexofenadine 60 Mg Tab) 60 mg PO DAILY [facility] Stop: 07/31/21 08:59 Last Admin: 07/01/21 08:08 Dose: 60 mg Documented by: Fluticasone Propionate (Fluticasone Propionate Na Spr 16 Gm Btl) 2 sprays NA DAILY [facility] Stop: 07/31/21 08:59 Last Admin: 07/01/21 08:07 Dose: 2 sprays Documented by: Formoterol Fumarate (Formoterol 20 Mcg/2 Ml Vial) 20 mcg NEB BID [facility] Stop: 07/30/21 20:59 Last Admin: 07/01/21 09:46 Dose: Not Given Documented by: Sodium Chloride (Nss) 500 mls @ 80 mls/hr IV .Q6H15M [facility] Stop: 07/31/21 13:14 Last Admin: 07/01/21 11:39 Dose: 80 mls/hr Documented by: Cefepime HCl 2,000 mg/ Syringe 20 mls @ 5 mls/min IV Q8H [facility]; Protocol Stop: 07/06/21 11:59 Last Admin: 07/01/21 11:47 Dose: 5 mls/min Documented by: Potassium Chloride ([place] / Wtr) 10 meq in 100 mls @ 100 mls/hr IV Q1H [facility]; Protocol Stop: 07/01/21 13:59 Last Admin: 07/01/21 13:53 Dose: 100 mls/hr Documented by: Lidocaine (Lidocaine 5% 1 Patch) 1 patch TD DAILY [facility] Stop: 07/31/21 08:59 Last Admin: 07/01/21 08:09 Dose: Not Given Documented by: Lorazepam (Lorazepam 1 Mg Tab) 1 mg SL TID PRN PRN Reason: Anxiety Stop: 07/30/21 15:18 Nystatin (Nystatin Susp 500,000 U/5 Ml Udc) 10 ml PO TID [facility] Stop: 07/11/21 08:59 Last Admin: 07/01/21 09:55 Dose: 10 ml Documented by: Ondansetron HCl (Ondansetron Inj 2 Mg/Ml 2 Ml Vial) 4 mg IV Q4 PRN PRN Reason: nausea Stop: 07/30/21 13:16 Last Admin: 07/01/21 07:59 Dose: 4 mg Documented by: Pantoprazole Sodium (Pantoprazole 40 Mg Tab) 40 mg PO QAM [facility] Stop: 07/31/21 08:59 Last Admin: 07/01/21 08:09 Dose: 40 mg Documented by: Potassium Chloride (Potassium Chloride Crtab 20 Meq Tabcr) 40 meq PO BID [facility] Stop: 07/31/21 11:29 Last Admin: 07/01/21 11:47 Dose: 40 meq Documented by: Prednisone (Prednisone 20 Mg Tab) 20 mg PO DAILY [facility] Stop: 07/31/21 08:59 Last Admin: 07/01/21 08:09 Dose: 20 mg Documented by: Sertraline HCl (Sertraline Hcl 50 Mg Tablet) 150 mg PO QAM [facility] Stop: 07/31/21 08:59 Last Admin: 07/01/21 08:10 Dose: 150 mg Documented by: Tramadol HCl (Tramadol Hcl 50 Mg Tablet) 50 mg PO Q6H PRN PRN Reason: pain Stop: 07/30/21 14:33 Warfarin Sodium (Warfarin Sod 7.5 Mg Tab) 7.5 mg PO Fr@1600 [facility] Stop: 08/04/21 15:59 Warfarin Sodium (Warfarin Sod 5 Mg Tab) 5 mg PO SuMoTuWeThSa@1600 [facility] Stop: 07/31/21 15:59 (1) COPD (chronic obstructive pulmonary disease) COPD type: unspecified COPD Qualified Code(s): J44.9 - Chronic obstructive pulmonary disease, unspecified
[2021-07-01] MEDS ORDERED: WARFARIN SOD 5 MG TAB PO SCH (16:00)
[2021-07-01] MEDS: LORazepam 1 MG TAB SL PRN (23:36)
[2021-07-02] MEDS: SODIUM CHLORIDE 0.9% 500 ML IV SCH ×2 (00:37→05:59)
[2021-07-02] MEDS: ONDANSETRON INJ 2 MG/ML 2 ML VIAL IV PRN ×2 (01:31→10:10)
[2021-07-02] MEDS: CEFEPIME 2,000 MG in SYRINGE 0 ML IV SCH ×3 (03:27→19:42)
--- NOTE | 2021-07-02 06:30 | Electrocardiogram Report ---
Test Reason : Blood Pressure : / mmHG Vent. Rate : 078 BPM Atrial Rate : 090 BPM P-R Int : 000 ms QRS Dur : 158 ms QT Int : 400 ms P-R-T Axes : 000 265 070 degrees QTc Int : 456 ms Poor data quality, interpretation may be adversely affected Ventricular-paced rhythm Abnormal ECG When compared with ECG of 15-JUN-2021 17:32, Vent. rate has decreased BY 4 BPM Confirmed by Miquel Mcdowell ([id number]) on 07/02/2021 6:30:18 AM Referred By: REFERRED SELF Confirmed By:Miquel Mcdowell
[2021-07-02] MEDS: BUDESONIDE 0.5 MG/2 ML VIAL (PULMICORT) NEB SCH ×2 (07:10→19:02)
[2021-07-02] MEDS: FORMOTEROL 20 MCG/2 ML VIAL NEB SCH ×2 (07:11→19:03)
[2021-07-02] MEDS: ALBUT/IPRATROP 3MG/0.5MG NEB 3 ML VIAL INH SCH ×3 (07:18→15:52)
[2021-07-02 08:16] LABS: Basophils # (auto) 0.01 K/uL (0-0.2); Basophils % (auto) 0.1 %; Eosinophils # (auto) 0.06 K/uL (0-0.5); Eosinophils % (auto) 0.7 %; Hematocrit (blood only) 43.2 % (37-47); Hemoglobin 12.8 g/dL (12.0-16.0); Immature Granulocytes # (auto) 0.03 K/uL (0.00-0.02); Immature Granulocytes % (auto) 0.3 %; Lymphocytes # (auto) 0.39 K/uL (1.2-3.4); Lymphocytes % (auto) 4.3 %; Mean Corpuscular Hemoglobin 26.4 pg (25-34); Mean Corpuscular Hgb Conc 29.6 g/dL (32-36); Mean Corpuscular Volume 89.3 fL (80-100); Mean Platelet Volume 10.1 fL (7.4-10.4); Monocytes # (auto) 0.52 K/uL (0.11-0.59); Monocytes % (auto) 5.7 %; Neutrophils # (auto) 8.05 K/uL (1.4-6.5); Neutrophils % (auto) 88.9 %; Platelet Count 127 K/uL (130-400); RDW Coefficient of Variation 16.1 % (11.5-14.5); RDW Standard Deviation 52.1 fL (36.4-46.3); Red Blood Count 4.84 M/uL (4.2-5.4); White Blood Count 9.06 K/uL (4.8-10.8)
[2021-07-02 08:32] LABS: BUN Creatinine Ratio 15.2 (10-20); Calcium 8.3 mg/dl (8.5-10.1); Creatinine Clr Calc Pharmacy 71.2 ml/min; Est GFR (African American) 61.9 ml/min; Est GFR (Non-African American) 53.4 ml/min; Potassium 3.5 mmol/L (3.5-5.1)
[2021-07-02 08:37] LABS: Prothrombin Time 70.4 Seconds (9.0-12.0)
[2021-07-02 08:42] LABS: INR 7.4 (0.9-1.1)
[2021-07-02] MEDS: LIDOCAINE 5% 1 PATCH TD SCH (09:59)
[2021-07-02] MEDS: POTASSIUM CHLORIDE CRTAB 20 MEQ TABCR PO SCH ×2 (10:00→20:40)
[2021-07-02] MEDS: FLUTICASONE PROPIONATE NA SPR 16 GM BTL SCH (10:00)
[2021-07-02] MEDS: NYSTATIN SUSP 500,000 U/5 ML UDC PO SCH ×3 (10:00→20:39)
[2021-07-02] MEDS: SERTRALINE HCL 50 MG TABLET PO SCH (10:01)
[2021-07-02] MEDS: predniSONE 20 MG TAB PO SCH (10:01)
[2021-07-02] MEDS: PANTOprazole 40 MG TAB PO SCH (10:02)
[2021-07-02] MEDS: FEXOFENADINE 60 MG TAB PO SCH (10:02)
--- NOTE | 2021-07-02 12:52 | Hospitalist Progress Note ---
Date of Service July 02, 2021 Assessment & Plan (1) Enteritis due to Norovirus: (2) COPD (chronic obstructive pulmonary disease): (3) Chronic respiratory failure with hypoxia: (4) Permanent atrial fibrillation: (5) Hypokalemia: (6) Chronic diastolic CHF (congestive heart failure): (7) Supratherapeutic INR: Plan: 70 year old female with history of COPD with chronic hypoxemic respiratory failure on 4 L oxygen, permanent atrial fibrillation on coumadin, chronic diastolic CHF on lasix and aldactone, who presented to the ED from [facility] with vomiting and diarrhea since 2 am on the day of presentation. Vomiting diarrhea due to norovirus gastroenteritis- Stool studies negative except for norovirus. Vomiting resolved, still with watery diarrhea multiple episodes. Symptomatic management-continue IVF, tolerating diet. Antiemetics prn. Will start on Imodium as needed as she continues to have significant diarrhea. Consider fiber to bulk up the stool. If diarrhea is not controlled, check for C. difficile as she has been on antibiotics. Elevated procalcitonin- Given chills, leucocytosis and persistently elevated procal, she has been on empiric antibiotics since ED presentation. Blood culture has been negative at 48 hours. Recheck procal in a.m. Anticipate short antibiotic course of max 5 days at best. Hypokalemia-resolved with repletion. Recheck in a.m. given continued diarrhea. COPD with chronic hypoxic respiratory failure- Recent exacerbation now seems resolved, on prednisone, will taper to stop over next few days. Continue nebs. continue home oxygen, at 3L which is at baseline. oral thrush- due to inhalers/steroids- continue nystatin swish and swallow Chronic diastolic CHF- hold home lasix aldactone in setting of diarrhea, vomiting and dehydration. Resume when indicated. Continue daily weight, I and Os not accurate as stool output not accounted. Weight stable. Permanent atrial fibrillation- rate controlled, On coumadin INR supratherapeutic today at 7.4- hold further coumadin until INR drops down- no bleeding, no reversal needed. Insomnia-started on melatonin Dispo- Pending improvement in diarrhea, PT OT evaluation DVT prophylaxis- coumadin-we will hold due to supratherapeutic INR Admission and Anticipated Discharge Date Admission Date: June 30, 2021 Subjective Patient was seen and examined at bedside. She states she does not feel good today. Feels nauseous but tolerated breakfast well without issues, no vomiting. States she feels tired and exhausted as she could not sleep at night and had ' jumping legs' last night. Also states he continues to have bad diarrhea, already 3 episodes today. No bleeding. No fever or chills. No more wheezing. Breathing at baseline. Agreeable to melatonin at night. Physical Exam Physical Exam: General: Lying in bed, not in distress, on 3 L NC which is her baseline HEENT: EOMI, CONTRERAS, dry oral mucosa Chest: Fair breath sounds bilaterally with no crackles or wheezes CVS: Irregular rhythm, normal heart sounds, no murmur Abdomen: Soft, non tender, not distended, normal bowel sounds Neuro: Awake, alert, oriented, conversing well, non focal Extremities: No cyanosis, clubbing or edema Results & Data Results & Data ([facility]) Vital Signs (Past 12 Hours) Vital Signs Temp Pulse Pulse Resp BP Pulse Ox 07/02/21 11:16 84 18 99 07/02/21 11:09 36.6 C 83 20 157/81 H 98 07/02/21 07:29 36.8 C 75 18 126/76 97 07/02/21 07:11 73 18 100 07/02/21 06:14 77 Laboratory Results Short CBC 07/02/21 Range/Units 07:58 WBC 9.06 (4.8-10.8) K/uL Hgb 12.8 (12.0-16.0) g/dL Hct 43.2 (37-47) % Plt Count 127 L (130-400) K/uL BMP 07/02/21 07:58 Sodium 141 Potassium 3.5 Chloride 111 H Carbon Dioxide 28 BUN 16 Creatinine 1.05 Glucose 98 Calcium 8.3 L Medications Administered Current Inpatient Medications Acetaminophen (Acetaminophen 325 Mg Tab) 650 mg PO TID PRN PRN Reason: Fever Or Pain Stop: 07/30/21 14:33 Albuterol (Albut/Ipratrop 3mg/0.5mg Neb 3 Ml Vial) 3 ml INH QIDR [facility]; Protocol Stop: 07/30/21 16:59 Last Admin: 07/02/21 11:16 Dose: 3 ml Documented by: Albuterol (Albuterol Hfa 8 Gm Inhaler) 2 puffs INH Q4R PRN PRN Reason: Shortness Of Breath Or Wheezing Stop: 07/30/21 14:33 Budesonide (Budesonide 0.5 Mg/2 Ml Vial (Pulmicort)) 0.5 mg NEB BIDR [facility] Stop: 07/30/21 18:59 Last Admin: 07/02/21 07:10 Dose: 0.5 mg Documented by: Fexofenadine HCl (Fexofenadine 60 Mg Tab) 60 mg PO DAILY [facility] Stop: 07/31/21 08:59 Last Admin: 07/02/21 10:02 Dose: 60 mg Documented by: Fluticasone Propionate (Fluticasone Propionate Na Spr 16 Gm Btl) 2 sprays NA DAILY [facility] Stop: 07/31/21 08:59 Last Admin: 07/02/21 10:00 Dose: 2 sprays Documented by: Formoterol Fumarate (Formoterol 20 Mcg/2 Ml Vial) 20 mcg NEB BIDR [facility] Stop: 08/01/21 18:59 Cefepime HCl 2,000 mg/ Syringe 20 mls @ 5 mls/min IV Q8H [facility]; Protocol Stop: 07/06/21 11:59 Last Admin: 07/02/21 03:27 Dose: 5 mls/min Documented by: Lidocaine (Lidocaine 5% 1 Patch) 1 patch TD DAILY [facility] Stop: 07/31/21 08:59 Last Admin: 07/02/21 09:59 Dose: Not Given Documented by: Lorazepam (Lorazepam 1 Mg Tab) 1 mg SL TID PRN PRN Reason: Anxiety Stop: 07/30/21 15:18 Last Admin: 07/01/21 23:36 Dose: 1 mg Documented by: Melatonin (Melatonin 3 Mg Tab) 6 mg PO HS [facility] Stop: 08/01/21 20:59 Nystatin (Nystatin Susp 500,000 U/5 Ml Udc) 10 ml PO TID [facility] Stop: 07/11/21 08:59 Last Admin: 07/02/21 10:00 Dose: 10 ml Documented by: Ondansetron HCl (Ondansetron Inj 2 Mg/Ml 2 Ml Vial) 4 mg IV Q4 PRN PRN Reason: nausea Stop: 07/30/21 13:16 Last Admin: 07/02/21 10:10 Dose: 4 mg Documented by: Pantoprazole Sodium (Pantoprazole 40 Mg Tab) 40 mg PO QAM [facility] Stop: 07/31/21 08:59 Last Admin: 07/02/21 10:02 Dose: 40 mg Documented by: Potassium Chloride (Potassium Chloride Crtab 20 Meq Tabcr) 40 meq PO BID [facility] Stop: 07/31/21 11:29 Last Admin: 07/02/21 10:00 Dose: 40 meq Documented by: Prednisone (Prednisone 20 Mg Tab) 20 mg PO DAILY [facility] Stop: 07/31/21 08:59 Last Admin: 07/02/21 10:01 Dose: 20 mg Documented by: Sertraline HCl (Sertraline Hcl 50 Mg Tablet) 150 mg PO QAM [facility] Stop: 07/31/21 08:59 Last Admin: 07/02/21 10:01 Dose: 150 mg Documented by: Tramadol HCl (Tramadol Hcl 50 Mg Tablet) 50 mg PO Q6H PRN PRN Reason: pain Stop: 07/30/21 14:33 Warfarin Sodium (Warfarin Sod 7.5 Mg Tab) 7.5 mg PO Fr@1600 [facility] Stop: 08/04/21 15:59 Warfarin Sodium (Warfarin Sod 5 Mg Tab) 5 mg PO SuMoTuWeThSa@1600 [facility] Stop: 07/31/21 15:59 (1) COPD (chronic obstructive pulmonary disease) COPD type: unspecified COPD Qualified Code(s): J44.9 - Chronic obstructive pulmonary disease, unspecified
[2021-07-02] MEDS: LORazepam 1 MG TAB SL PRN ×2 (13:55→20:39)
[2021-07-02] MEDS: LOPERAMIDE HCL 2 MG CAP PO PRN ×2 (17:58→20:39)
[2021-07-02] MEDS: MELATONIN 3 MG TAB PO SCH (20:39)
[2021-07-03] MEDS: ALBUT/IPRATROP 3MG/0.5MG NEB 3 ML VIAL INH SCH ×5 (03:27→19:32)
[2021-07-03] MEDS: CEFEPIME 2,000 MG in SYRINGE 0 ML IV SCH (04:07)
[2021-07-03] MEDS: BUDESONIDE 0.5 MG/2 ML VIAL (PULMICORT) NEB SCH ×2 (07:27→19:46)
[2021-07-03] MEDS: FORMOTEROL 20 MCG/2 ML VIAL NEB SCH ×2 (07:27→19:47)
[2021-07-03 08:08] LABS: Basophils # (auto) 0.01 K/uL (0-0.2); Basophils % (auto) 0.1 %; Eosinophils # (auto) 0.13 K/uL (0-0.5); Eosinophils % (auto) 1.8 %; Hematocrit (blood only) 40.4 % (37-47); Hemoglobin 12.4 g/dL (12.0-16.0); Immature Granulocytes # (auto) 0.02 K/uL (0.00-0.02); Immature Granulocytes % (auto) 0.3 %; Lymphocytes # (auto) 0.64 K/uL (1.2-3.4); Lymphocytes % (auto) 8.7 %; Mean Corpuscular Hgb Conc 30.7 g/dL (32-36); Mean Platelet Volume 10.2 fL (7.4-10.4); Monocytes # (auto) 0.74 K/uL (0.11-0.59); Neutrophils # (auto) 5.84 K/uL (1.4-6.5); Neutrophils % (auto) 79.1 %; Platelet Count 132 K/uL (130-400); RDW Coefficient of Variation 16.1 % (11.5-14.5); RDW Standard Deviation 51.4 fL (36.4-46.3); Red Blood Count 4.59 M/uL (4.2-5.4); White Blood Count 7.38 K/uL (4.8-10.8)
[2021-07-03 08:27] LABS: Prothrombin Time 62.7 Seconds (9.0-12.0)
[2021-07-03 08:30] LABS: BUN Creatinine Ratio 9.4 (10-20); Calcium 8.2 mg/dl (8.5-10.1); Creatinine Clr Calc Pharmacy 70.3 ml/min; Est GFR (African American) 61.2 ml/min; Est GFR (Non-African American) 52.8 ml/min; Potassium 3.8 mmol/L (3.5-5.1)
[2021-07-03 08:43] LABS: INR 6.5 (0.9-1.1)
[2021-07-03] MEDS: PANTOprazole 40 MG TAB PO SCH (09:30)
[2021-07-03] MEDS: FEXOFENADINE 60 MG TAB PO SCH (09:30)
[2021-07-03] MEDS: predniSONE 20 MG TAB PO SCH (09:30)
[2021-07-03] MEDS: SERTRALINE HCL 50 MG TABLET PO SCH (09:30)
[2021-07-03] MEDS: NYSTATIN SUSP 500,000 U/5 ML UDC PO SCH ×3 (09:31→20:22)
[2021-07-03] MEDS: POTASSIUM CHLORIDE CRTAB 20 MEQ TABCR PO SCH ×2 (09:31→20:23)
[2021-07-03] MEDS: LIDOCAINE 5% 1 PATCH TD SCH (09:32)
[2021-07-03] MEDS: FLUTICASONE PROPIONATE NA SPR 16 GM BTL SCH (09:32)
--- NOTE | 2021-07-03 10:14 | Hospitalist Progress Note ---
Date of Service July 03, 2021 Assessment & Plan (1) Enteritis due to Norovirus: (2) COPD (chronic obstructive pulmonary disease): (3) Chronic respiratory failure with hypoxia: (4) Permanent atrial fibrillation: (5) Hypokalemia: (6) Chronic diastolic CHF (congestive heart failure): (7) Supratherapeutic INR: Plan: 70 year old female with history of COPD with chronic hypoxemic respiratory failure on 4 L oxygen, permanent atrial fibrillation on coumadin, chronic diastolic CHF on lasix and aldactone, who presented to the ED from [facility] with vomiting and diarrhea since 2 am on the day of presentation found to have norovirus gastroenteritis. Norovirus Gastroenteritis -Supportive Management -Imodium PRN started -Still on Cefepime--> will discontinue. Hypokalemia -replete PRN -check Mg, Phos levels COPD with chronic hypoxic respiratory failure - Recent exacerbation now seems resolved, on prednisone 20mg BID--> now 20mg daily--> will need to investigate further, patient reports being on 20mg (unclear frequency) chronically which is quite high - Continue nebs. continue home oxygen, at 3L which is at baseline. oral thrush due to inhalers/steroids- continue nystatin swish and swallow Chronic diastolic CHF - hold home lasix aldactone in setting of diarrhea, vomiting and dehydration. Will continue to hold. Can likely resume at discharge -. Continue daily weight, I and Os not accurate as stool output not accounted. Weight stable. Permanent atrial fibrillation Supratherapeutic INR - rate controlled, On coumadin INR supratherapeutic yesterday at 7.4--> 6.5 today -continue to hold coumadin -No signs of bleed Insomnia - melatonin PRNN Restless Leg -Requip PRN Dispo- From [facility], PT OT evaluation DVT prophylaxis- coumadin-we will hold due to supratherapeutic INR Admission and Anticipated Discharge Date Admission Date: June 30, 2021 Subjective Feels better. No diarrhea overnight Reports "restless legs " at night time, only since being here. Does not have this problem chronically Poor historian with regards to her COPD and prednisone use, reports she takes prednisone 20mg "all the time" Physical Exam Physical Exam: Appears tired, no acute distress, non toxic Respiratory: No wheezing/rhonchi/rales Cardiovascular: regular rate and rhythm, no murmurs/rubs/gallops Gastrointestinal (Abdomen): soft, non tender, non distended Musculoskeletal: No edema Neurologic: awake, generalized weakness, spontaneously moving extremities Results & Data Results & Data ([facility]) Vital Signs (Past 12 Hours) Vital Signs Temp Pulse Pulse Pulse Resp BP Pulse Ox 07/03/21 07:57 36.5 C 71 20 144/72 H 99 07/03/21 07:28 80 17 99 07/03/21 06:15 71 07/02/21 23:00 87 Laboratory Results Short CBC 07/03/21 Range/Units 07:42 WBC 7.38 (4.8-10.8) K/uL Hgb 12.4 (12.0-16.0) g/dL Hct 40.4 (37-47) % Plt Count 132 (130-400) K/uL BMP 07/03/21 07:42 Sodium 142 Potassium 3.8 Chloride 114 H Carbon Dioxide 27 BUN 10 Creatinine 1.06 Glucose 94 Calcium 8.2 L Medications Administered Current Inpatient Medications Acetaminophen (Acetaminophen 325 Mg Tab) 650 mg PO TID PRN PRN Reason: Fever Or Pain Stop: 07/30/21 14:33 Albuterol (Albut/Ipratrop 3mg/0.5mg Neb 3 Ml Vial) 3 ml INH QIDR [facility]; Protocol Stop: 07/30/21 16:59 Last Admin: 07/03/21 07:28 Dose: Not Given Documented by: Albuterol (Albuterol Hfa 8 Gm Inhaler) 2 puffs INH Q4R PRN PRN Reason: Shortness Of Breath Or Wheezing Stop: 07/30/21 14:33 Budesonide (Budesonide 0.5 Mg/2 Ml Vial (Pulmicort)) 0.5 mg NEB BIDR [facility] Stop: 07/30/21 18:59 Last Admin: 07/03/21 07:27 Dose: 0.5 mg Documented by: Fexofenadine HCl (Fexofenadine 60 Mg Tab) 60 mg PO DAILY [facility] Stop: 07/31/21 08:59 Last Admin: 07/03/21 09:30 Dose: 60 mg Documented by: Fluticasone Propionate (Fluticasone Propionate Na Spr 16 Gm Btl) 2 sprays NA DAILY [facility] Stop: 07/31/21 08:59 Last Admin: 07/03/21 09:32 Dose: 2 sprays Documented by: Formoterol Fumarate (Formoterol 20 Mcg/2 Ml Vial) 20 mcg NEB BIDR [facility] Stop: 08/01/21 18:59 Last Admin: 07/03/21 07:27 Dose: 20 mcg Documented by: Lidocaine (Lidocaine 5% 1 Patch) 1 patch TD DAILY [facility] Stop: 07/31/21 08:59 Last Admin: 07/03/21 09:32 Dose: Not Given Documented by: Loperamide HCl (Loperamide Hcl 2 Mg Cap) 2 mg PO TID PRN PRN Reason: diarrhea Stop: 08/01/21 12:48 Last Admin: 07/02/21 20:39 Dose: 2 mg Documented by: Lorazepam (Lorazepam 1 Mg Tab) 1 mg SL TID PRN PRN Reason: Anxiety Stop: 07/30/21 15:18 Last Admin: 07/02/21 20:39 Dose: 1 mg Documented by: Melatonin (Melatonin 3 Mg Tab) 6 mg PO HS [facility] Stop: 08/01/21 20:59 Last Admin: 07/02/21 20:39 Dose: 6 mg Documented by: Nystatin (Nystatin Susp 500,000 U/5 Ml Udc) 10 ml PO TID [facility] Stop: 07/11/21 08:59 Last Admin: 07/03/21 09:31 Dose: 10 ml Documented by: Ondansetron HCl (Ondansetron Inj 2 Mg/Ml 2 Ml Vial) 4 mg IV Q4 PRN PRN Reason: nausea Stop: 07/30/21 13:16 Last Admin: 07/02/21 10:10 Dose: 4 mg Documented by: Pantoprazole Sodium (Pantoprazole 40 Mg Tab) 40 mg PO QAM [facility] Stop: 07/31/21 08:59 Last Admin: 07/03/21 09:30 Dose: 40 mg Documented by: Potassium Chloride (Potassium Chloride Crtab 20 Meq Tabcr) 40 meq PO BID [facility] Stop: 07/31/21 11:29 Last Admin: 07/03/21 09:31 Dose: 40 meq Documented by: Prednisone (Prednisone 20 Mg Tab) 20 mg PO DAILY [facility] Stop: 07/31/21 08:59 Last Admin: 07/03/21 09:30 Dose: 20 mg Documented by: Saccharomyces Boulardii (Saccharomyces Boulardii 250 Mg Cap) 250 mg PO BID [facility] Stop: 08/02/21 10:29 Sertraline HCl (Sertraline Hcl 50 Mg Tablet) 150 mg PO QAM [facility] Stop: 07/31/21 08:59 Last Admin: 07/03/21 09:30 Dose: 150 mg Documented by: Tramadol HCl (Tramadol Hcl 50 Mg Tablet) 50 mg PO Q6H PRN PRN Reason: pain Stop: 07/30/21 14:33 Warfarin Sodium (Warfarin Sod 7.5 Mg Tab) 7.5 mg PO Fr@1600 [facility] Stop: 08/04/21 15:59 Warfarin Sodium (Warfarin Sod 5 Mg Tab) 5 mg PO SuMoTuWeThSa@1600 [facility] Stop: 07/31/21 15:59 (1) COPD (chronic obstructive pulmonary disease) COPD type: unspecified COPD Qualified Code(s): J44.9 - Chronic obstructive pulmonary disease, unspecified
[2021-07-03] MEDS ORDERED: rOPINIRole HCL 0.25 MG TABLET PO PRN (10:46)
[2021-07-03] MEDS: SACCHAROMYCES BOULARDII 250 MG CAP PO SCH ×2 (11:05→20:22)
[2021-07-03 11:16] LABS: Magnesium 2.1 mg/dl (1.7-2.4); Phosphorus 2.8 mg/dl (2.5-4.9)
[2021-07-03] MEDS: MELATONIN 3 MG TAB PO SCH (20:22)
[2021-07-03] MEDS: LORazepam 1 MG TAB SL PRN (20:22)
[2021-07-04] MEDS: BUDESONIDE 0.5 MG/2 ML VIAL (PULMICORT) NEB SCH (07:11)
[2021-07-04] MEDS: FORMOTEROL 20 MCG/2 ML VIAL NEB SCH (07:11)
[2021-07-04] MEDS: ALBUT/IPRATROP 3MG/0.5MG NEB 3 ML VIAL INH SCH ×2 (07:12→11:00)
[2021-07-04 07:27] LABS: Hematocrit (blood only) 39.7 % (37-47); Hemoglobin 12.2 g/dL (12.0-16.0); Mean Corpuscular Hemoglobin 26.8 pg (25-34); Mean Corpuscular Hgb Conc 30.7 g/dL (32-36); Mean Corpuscular Volume 87.1 fL (80-100); Mean Platelet Volume 11.2 fL (7.4-10.4); Platelet Count 150 K/uL (130-400); RDW Coefficient of Variation 15.9 % (11.5-14.5); RDW Standard Deviation 50.8 fL (36.4-46.3); Red Blood Count 4.56 M/uL (4.2-5.4); White Blood Count 7.32 K/uL (4.8-10.8)
[2021-07-04 07:38] LABS: BUN Creatinine Ratio 9.6 (10-20); Calcium 8.1 mg/dl (8.5-10.1); Creatinine Clr Calc Pharmacy 79.2 ml/min; Est GFR (African American) 70.7 ml/min; Phosphorus 2.8 mg/dl (2.5-4.9); Potassium 3.9 mmol/L (3.5-5.1)
[2021-07-04 07:43] LABS: INR 3.2 (0.9-1.1); Prothrombin Time 31.8 Seconds (9.0-12.0)
[2021-07-04] MEDS: SACCHAROMYCES BOULARDII 250 MG CAP PO SCH (08:00)
[2021-07-04] MEDS: FEXOFENADINE 60 MG TAB PO SCH (08:01)
[2021-07-04] MEDS: PANTOprazole 40 MG TAB PO SCH (08:01)
[2021-07-04] MEDS: SERTRALINE HCL 50 MG TABLET PO SCH (08:01)
[2021-07-04] MEDS: predniSONE 20 MG TAB PO SCH (08:01)
[2021-07-04] MEDS: POTASSIUM CHLORIDE CRTAB 20 MEQ TABCR PO SCH (08:02)
[2021-07-04] MEDS: FLUTICASONE PROPIONATE NA SPR 16 GM BTL SCH (08:02)
[2021-07-04] MEDS: LIDOCAINE 5% 1 PATCH TD SCH (08:02)
[2021-07-04] MEDS: NYSTATIN SUSP 500,000 U/5 ML UDC PO SCH (08:03)
--- NOTE | 2021-07-04 11:49 | Discharge Summary ---
Date of Service July 04, 2021 Admission HPI Per Admitting Provider 70 year old female with history of COPD with chronic hypoxemic respiratory failure on 4 L oxygen, permanent atrial fibrillation on coumadin, chronic diastolic CHF on lasix and aldactone, who presented to the ED from [facility] with vomiting and diarrhea since 2 am. She is being treated for COPD exacerbation with prednisone burst and solumedrol over the past few weeks and states it is improving but denies any antibiotic use. No GI symptoms prior to 2 am. Denies any fever but has chills, Unable to tolerate anything down, had multiple episodes of vomiting and diarrhea since then, even imodium did not help. No abdominal pain whatsover. No bleeding. No sick contacts. Denies any unusual food intake. Denies any history of C diff. Breathing is closer to baseline per patient. In the ED, afebrile, hemodynamically stable. Dry and given IVF. Labs reviewed, with leucocytosis and elevated procal with chills, started on empiric antibiotics. Given dexamethasone and nebs. Hospitalist service was consulted for admission. Patient sick looking during my encounter, still looks dry. Principal Diagnosis Norovirus Gastroenteritis Hypokalemia Supratherapeutic INR Restless Leg Discharge Exam Patient feels well. Reports diarrhea has resolved Tolerating diet Discharge Data Allergies Allergy/AdvReac Type Severity Reaction Status Date / Time Penicillins Allergy Severe SWELLING Verified 07/23/20 10:36 OF TONGUE AND THROAT Consultations 06/30/21 12:14 ED Decision to Admit Stat Hospital Course (1) Enteritis due to Norovirus: (2) COPD (chronic obstructive pulmonary disease): (3) Chronic respiratory failure with hypoxia: (4) Permanent atrial fibrillation: (5) Hypokalemia: (6) Chronic diastolic CHF (congestive heart failure): (7) Supratherapeutic INR: 70 year old female with history of COPD with chronic hypoxemic respiratory failure on 4 L oxygen, permanent atrial fibrillation on coumadin, chronic diastolic CHF on lasix and aldactone, who presented to the ED from [facility] with vomiting and diarrhea since 2 am on the day of presentation found to have norovirus gastroenteritis. Norovirus Gastroenteritis -Supportive Management -Imodium PRN -received several days of Cefepime for elevated procalcitonin. However, blood cultures remains negative. Antibiotics were discontinued Hypokalemia -repleted here COPD with chronic hypoxic respiratory failure - Recent exacerbation now seems resolved, on prednisone 20mg BID. Uncertain if this is chronic dose (patient reports that it is), for now, recommend reducing to 20mg daily. She will need to follow up with PCP to determine if it can be tapered further - Continue nebs. continue home oxygen, at 3L which is at baseline. oral thrush due to inhalers/steroids- started on nystatin swish and spit. Prescription for an additional 7 day course. Chronic diastolic CHF - hold home lasix aldactone in setting of diarrhea, vomiting and dehydration. Will continue to hold. Can likely resume at discharge -. Continue daily weight, I and Os not accurate as stool output not accounted. Weight stable. Permanent atrial fibrillation Supratherapeutic INR - rate controlled -INR supratherapeutic here due to being on antibiotics. Highest at 7.4 which improved down to 3.2 after several days off coumadin. Will receive one time Coumadin 2mg 07/04 and recommend resuming home coumadin regimen 07/05. Repeat INR in 2-3 days. Insomnia - melatonin PRNN Restless Leg -trial of Requip PRN. Prescription for 15 days. Follow up with PCP Evaluated by PT here and cleared to return back to [facility]. Prescription for OP PT provided Total Time Total Time Spent Total Time Spent (In Minutes): 35 Discharge Plan Discharge Items Patient Disposition: [facility] Prison Reason For Visit: VOMITING, DIARRHEA Discharge Diagnosis: Norovirus Gastroenteritis Hypokalemia Supratherapeutic INR Oral thrush Condition on Discharge: Good Activity: Resume your previous activity Non-emergency contact: Primary Care Provider Call non-emergency contact if: you have any medication questions Follow-up/Referrals: [facility] [Primary Care Provider] - Diet: Regular Addtl Attending Provider Instructions: Your medication changes: 1) Prednisone reduced to 20mg daily (from 20mg twice a day). Please follow up with your PCP to see if it can be reduced further 2) Your INR today is 3.2 down from a high of 7.4 while you were on antibiotics. You received 2 mg coumadin 07/04. You can resume your coumadin at home doses on Wednesday 07/05. Repeat INR in 2 days 3) You were started on a trial of Requip for restless leg as needed 4) You will go home on a 7 day course of nystatin swish/spit for oral thrush (this is related to the steroids that you are on) 5) You will go home on Florastor to promote gut health Pending Studies at Discharge: No Stand-Alone Forms: My Osmopure, Smoking Cessation Skilled Items Patient informed of condition?: Yes DNR: No Discharge Level of Care: Other Communicable Disease: Yes Discharge Prognosis: Stable Lines: None Urinary Catheter: No Medications and DC Order Prescriptions: New nystatin 100,000 unit/mL Suspension 10 ml PO TID 7 Days Qty: 210 RF: 0 prednisone 20 mg Tablet 20 mg PO DAILY 15 Days Qty: 15 RF: 0 ropinirole 0.25 mg Tablet 0.25 mg PO HS PRN (Reason: restless leg(s)) 15 Days Qty: 15 RF: 0 Saccharomyces boulardii [Florastor] 250 mg Capsule 250 mg PO BID 14 Days Qty: 28 RF: 0 Continued ipratropium-albuterol 0.5 mg-3 mg(2.5 mg base)/3 mL Solution For Nebulization 3 ml INHALATION QID RF: 0 fluticasone propionate [Flonase Allergy Relief] 50 mcg/actuation [place],Suspension 2 spray INTRANASAL DAILY RF: 0 Trelegy Ellipta 100-62.5-25 mcg Blister With Device 1 inh INHALATION DAILY RF: 0 spironolactone [Aldactone] 25 mg Tablet 25 mg PO DAILY RF: 0 furosemide 20 mg Tablet 20 mg PO BID RF: 0 potassium chloride 10 mEq Capsule, Extended Release 10 meq PO DAILY RF: 0 ferrous sulfate 325 mg (65 mg iron) Tablet 325 mg PO BID RF: 0 multivitamin Tablet 1 tab PO DAILY RF: 0 desonide 0.05 % Cream 1 applic TOPICAL BID PRN (Reason: Rash) RF: 0 hydrocortisone valerate 0.2 % Cream 1 applic TOPICAL BID RF: 0 sertraline 100 mg Tablet 1.5 tab PO QAM RF: 0 clobetasol [Temovate] 0.05 % Cream 1 applic TOPICAL BID PRN (Reason: Rash) RF: 0 lorazepam [Ativan] 0.5 mg Tablet 0.5 mg PO BID PRN (Reason: Anxiety) RF: 0 pantoprazole [Protonix] 40 mg Tablet,Delayed Release (Dr/Ec) 40 mg PO QAM RF: 0 triamcinolone acetonide 0.1 % Ointment 1 applic topical DAILY PRN (Reason: Rash) RF: 0 fluocinonide 0.05 % Solution 1 applic topical DAILY PRN (Reason: Itching) RF: 0 albuterol sulfate [Ventolin HFA] 90 mcg/actuation Hfa Aerosol Inhaler 2 puff INHALATION Q4H PRN (Reason: Shortness Of Breath Or Wheezing) RF: 0 Calcium 600 + D(3) 600 mg calcium- 200 unit Capsule 1 tab PO BID RF: 0 magnesium oxide 400 mg Capsule 400 mg PO BID RF: 0 meclizine 25 mg tablet 25 mg PO TID PRN (Reason: dizziness) RF: 0 warfarin 5 mg Tablet 5 mg PO DIRECTED RF: 0 tramadol 50 mg tablet 50 mg PO Q6H PRN (Reason: pain) Qty: 30 RF: 0 lidocaine 4 % adhesive patch,medicated 1 patch topical DAILY Qty: 10 RF: 0 fexofenadine 60 mg Tablet 60 mg PO DAILY RF: 0 acetaminophen 325 mg Tablet 650 mg PO QAM MDD 3G RF: 0 acetaminophen 325 mg tablet 650 mg PO TID MDD 3G PRN (Reason: Fever Or Pain) RF: 0 acetaminophen 650 mg Suppository 650 mg MA Q4H PRN (Reason: Fever) RF: 0 ammonium lactate 12 % cream 1 applic TOPICAL DAILY PRN (Reason: Skin Irritation) RF: 0 loperamide 2 mg Capsule 2 mg PO DAILY PRN (Reason: Diarrhea) RF: 0 atropine 0.01 % Drops, Emulsion See Rx Instructions .ROUTE .COMPLEX RF: 0 fluocinonide 0.05 % Solution 1 applic TOPICAL DAILY PRN (Reason: Skin Irritation) RF: 0 furosemide 40 mg tablet 40 mg PO BID RF: 0 polyethylene glycol 3350 [Gavilax] 17 gram/dose Powder 17 g PO DAILY RF: 0 ipratropium-albuterol 0.5 mg-3 mg(2.5 mg base)/3 mL solution for nebulization 3 ml INHALATION BID PRN (Reason: Shortness Of Breath Or Wheezing) RF: 0 lorazepam 1 mg tablet 1 mg sublingual Q2H PRN (Reason: Anxiety) RF: 0 lorazepam 2 mg/mL Concentrate 1 mg sublingual Q2H PRN (Reason: Anxiety) RF: 0 Discontinued doxycycline hyclate 100 mg Capsule 100 mg PO BID RF: 0 prednisone 20 mg tablet 20 mg PO BID RF: 0 Discharge Orders: Discharge Order (Routine); Ordered 07/04/21 Ordered By: Marian Mead Admission Data Admit Date/Time: 06/30/21 13:17 Attending Provider: Marian Mead Admit Provider: Noel Kurtz [facility] Other Providers: Noel Kurtz Other Interventions: Discharge Summary Assessment (RN) Last Done: 07/04/21 11:39
[2021-07-04] MEDS ORDERED: WARFARIN SOD 2 MG TAB PO SCH (16:00)
[2021-07-05] MEDS ORDERED: WARFARIN SOD 7.5 MG TAB PO SCH (16:00)
== END 2021-07-04 13:51 | disposition home or self-care (01) | DRG 392 ==
LOC: ED 08:04 → 2W 13:17 → SUATTDRO 13:17 → 2W 14:33
DX: K21.9 Gastro-esophageal reflux disease without esophagitis; E87.6 Hypokalemia; G47.00 Insomnia, unspecified; Z79.01 Long term (current) use of anticoagulants; J96.11 Chronic respiratory failure with hypoxia; Z90.710 Acquired absence of both cervix and uterus; T38.0X5A Adverse effect of glucocorticoids and synthetic analogues, initial encounter; Z90.09 Acquired absence of other part of head and neck; I48.21 Permanent atrial fibrillation; J44.1 Chronic obstructive pulmonary disease with (acute) exacerbation; F41.9 Anxiety disorder, unspecified; I50.32 Chronic diastolic (congestive) heart failure; M19.90 Unspecified osteoarthritis, unspecified site; Z98.42 Cataract extraction status, left eye; Z68.41 Body mass index [BMI] 40.0-44.9, adult; B37.0 Candidal stomatitis; E66.9 Obesity, unspecified; Z87.891 Personal history of nicotine dependence; F32.A Depression, unspecified; N18.30 Chronic kidney disease, stage 3 unspecified; Z88.0 Allergy status to penicillin; Z98.41 Cataract extraction status, right eye; Q21.1 Atrial septal defect; A08.11 Acute gastroenteropathy due to Norwalk agent; I13.0 Hypertensive heart and chronic kidney disease with heart failure and stage 1 through stage 4 chronic kidney disease, or unspecified chronic kidney disease